=== PATIENT | male | born 1950 | race Caucasian/White ===

== ENCOUNTER → 2017-12-03 08:21 | Outpatient (CLI) | payer MEDICARE, MEDICAID, SELFPAY ==
[2017-12-03 09:21] LABS: Add Manual Diff / Slide Review NO; Basophils Percent Auto 0.9 % (0-2); Eosinophils Percent Auto 1.7 % (2-4); Hematocrit 41.6 % (41-53); Hemoglobin 14.3 g/dL (13.5-17.5); Lymphocytes Percent Auto 15.7 % (25-40); Mean Corpuscular HGB Conc 34.4 % (30-36); Monocytes Percent Auto 7.2 % (3-14); Neutrophils Absolute Auto 6000 /uL (3000-5900); Neutrophils Percent Auto 74.5 % (50-75); Platelet Count 283 X10^3/uL (150-400); Red Blood Cell Count 4.62 X10^6/uL (4.5-5.9); Red Cell Distribution Width 17.5 % (11.6-14.8); White Blood Cell Count 8.1 X10^3/uL (4.5-11.0)
[2017-12-03 09:50] LABS: Alanine Aminotransferase 23 IU/L (21-72); Albumin 4.1 g/dL (3.5-5.0); Albumin Globulin Ratio 1.3 (1.0-2.8); Alkaline Phosphatase 58 U/L (38-126); Aspartate Aminotransferase 14 IU/L (17-59); BUN Creatinine Ratio 24.2 (6-22); Bilirubin Total 0.5 mg/dL (0.2-1.3); Blood Urea Nitrogen 29 mg/dL (9-20); Calcium 9.8 mg/dL (8.4-10.2); Carbon Dioxide 23 mmol/L (22-32); Chloride 104 mmol/L (98-107); Estimated Glomerular Filt Rate > 60.0 mL/min (>60); Globulin 3.2 g/dL (1.7-4.1); Glucose 99 mg/dL (80-110); HEMOLYSIS < 15 (0-50); Magnesium 1.7 mg/dL (1.6-2.3); Potassium 3.9 mmol/L (3.4-5.1); Sodium 143 mmol/L (137-145); Total Protein 7.3 g/dL (6.3-8.2)
[2017-12-03 10:06] LABS: Thyroid Stimulating Hormone 3.37 uIU/mL (0.47-4.68)
== END ==
PROVIDERS: PCP Physician Assistant; Visit Provider Internal Medicine Cardiovascular Disease
DX: I48.91 Unspecified atrial fibrillation (principal); Z79.899 Other long term (current) drug therapy
CPT/HCPCS: 36415; 80053; 83735; 84443; 85025

== ENCOUNTER → 2018-01-01 08:37 | Outpatient (CLI) | payer MEDICARE, MEDICAID, SELFPAY ==
--- NOTE | 2018-01-08 17:06 | PM.PFT.1 ---
Pulmonary Function Test Referral & Results Date Patient Seen: 01/01/18 Requesting provider: Caty Del Rio Results: The spirometry demonstrates an FVC of 3.41 L which is 77% of predicted. The FEV1 was measured at 2.70 L which is 82% of predicted. The FEV1/FVC ratio was 79 which is 107% of predicted. Following the administration of bronchodilator there was no appreciable change. Lung volumes show an SVC of 4.06 L which is 90% of predicted. The diffusing capacity was measured at 35.67 which is 115% of predicted. The maximum voluntary ventilation was slightly reduced. Interpretation: This study demonstrates mild obstructive lung disease without evidence of benefit following bronchodilator administration
== END ==
PROVIDERS: Family Provider Physician Assistant; PCP Physician Assistant; Visit Provider Internal Medicine Cardiovascular Disease
DX: Z79.899 Other long term (current) drug therapy (principal)
CPT/HCPCS: 94010; 94060; 94726; 94729

== ENCOUNTER → 2018-01-04 06:42 | Outpatient (CLI) | payer MEDICARE, MEDICAID, SELFPAY ==
--- NOTE | 2018-01-04 | DI.MRI.S_ITS ---
PROCEDURE: MR LUMBAR SPINE WO CON INDICATIONS: left leg pain. Low back pain. TECHNIQUE: Noncontrast sagittal T1 spin echo and T2 fast echo, sagittal STIR, axial T1 and T2 fast spin echo through the lumbar spine. In cases with scoliosis, additional coronal T2 fast spin echo may be performed. COMPARISON: [facility], MR, L-SPINE WITHOUT CONTRAST, 09/16/2011, 17:18. [facility], MR, L-SPINE WITHOUT CONTRAST, 09/13/2014, 12:56. [facility], [place], BONE SCAN THREE PHASE, 08/15/2015, 10:33. FINDINGS: Image quality: Excellent. Alignment and Curvature: There is normal bony alignment. Bone Marrow: Marrow is of normal overall signal. Again noted is a 1.4 cm oval area of fatty marrow in the left transverse process of S1. No acute vertebral body compression fractures. Spinal Cord: Conus medullaris terminates at the L1-2 level. Visualized cord demonstrates normal signal and size. Paraspinous Soft Tissues: No paravertebral masses. Prominent left peripelvic renal cysts. L1-L2: Disc degeneration with broad-based posterolateral annular bulging, central concavity preserved. Mild right and moderate left foraminal stenosis, unchanged. L2-L3: Disc degeneration with broad-based annular bulge flattening the thecal sac anteriorly, mild central canal stenosis. Mild facet arthropathy. Minimal bilateral foraminal stenosis, unchanged.. L3-L4: Disc degeneration with broad-based annular bulge and bilateral facet arthropathy, creating moderate central canal stenosis, sagittal diameter of the thecal sac measuring 8.6 mm, unchanged. Moderate left and mild right foraminal stenosis, unchanged. L4-L5: Disc degeneration with broad-based annular bulge and bilateral facet arthropathy with ligamentous thickening. This creates a mild central canal stenosis, thecal sac at 9.8 mm, unchanged. Mild bilateral foraminal stenosis, unchanged. L5-S1: Mild disc degeneration. No focal disc protrusion or encroachment on the S1 nerve roots. Broad-based annular bulge causes slight flattening of the thecal sac anteriorly, greater on the right. Bilateral facet arthropathy. The combination again causes severe right foraminal stenosis and moderate left foraminal stenosis, unchanged. IMPRESSION: 1. Lumbar spine again shows multilevel degenerative disc disease and facet arthropathy with central canal stenosis most marked at the L3-4 level, considered moderate in severity at that level. Severe right foraminal stenosis at L5-S1 is again noted. Overall no interval change from last exam which was also stable from the previous 2012 study. 2. Large left peripelvic renal cysts again noted. Dictated by: Per Herrera M.D. on 01/04/2018 at 8:41 Approved by: Per Herrera M.D. on 01/04/2018 at 9:02
--- NOTE | 2018-01-13 10:55 | DI.NM.S_ITS ---
DATE OF SERVICE: PROCEDURE: Pharmacological perfusion study. INDICATIONS: History of congestive heart failure with LV dysfunction and atrial fibrillation, status post cardioversion with LV ejection fraction 30% to 35% in the past. A perfusion scan is being done to rule out a component of ischemic cardiomyopathy as well. RADIOPHARMACEUTICAL: 24.9 mCi of technetium-99m Myoview IV was injected at stress, and 25.7 mCi of technetium-99m Myoview IV was injected at rest. CARDIAC STRESS: The patient underwent IV Lexiscan perfusion study under the supervision of an attending staff using standard IV Lexiscan as per protocol. He remained hemodynamically stable during Lexiscan infusion. Baseline rhythm was sinus. Stress EKG did not reveal any obvious inducible ischemic changes. There were some PACs. RAW DATA: There was increased subdiaphragmatic activity as well as colon shadow near the inferior border of the heart. GATED STUDY: Stress LV ejection fraction 58%. Resting end-diastolic volume 269 mL, suggestive of dilated LV. TID ratio 1.06, which is within normal limits. Lung/heart ratio 0.24, which is within normal limits. I don't see any obvious regional wall motion abnormalities. MYOCARDIAL PERFUSION SCAN: Stress supine, resting supine, and stress prone images were compared to each other. Stress supine and resting supine images revealed large-sized [id number] perfusion defect of entire inferior wall, inferoapex, as well as basal inferolateral wall and inferoseptum which got partially improved during prone images. During prone images, the patient remained to have mild to moderately decreased perfusion of inferior wall and inferoapex. No significant reversible ischemia. CONCLUSION: 1. No obvious reversible ischemia. 2. Stress supine and resting supine images revealed large-sized moderately severe perfusion defect of inferior wall, inferoapex, as well as basal inferolateral and basal inferoseptum which partially improved during prone images. There was increased subdiaphragmatic activity and colon uptake near the inferior border of the heart. There is a possibility of persistent tissue attenuation artifact; however, one cannot rule out the possibility of inferior wall myocardial infarction (WI). I don't see any significant perfusion defect in the LAD or circumflex distribution overall. Calculated stress LV ejection fraction about 58%. The patient is in sinus rhythm. The patient is not in atrial fibrillation. Recently, he had cardioversion. There is a possibility of tachycardia-induced cardiomyopathy, and with sinus rhythm, we are seeing better LV function. Josh Mcguire - CAMRON/xin/clyde doc#: [id number]/job#: [id number] dd: 01/05/2018 15:19:00 dt: 01/05/2018 17:25:00 DICTATING MD/COPIES TO: Caty Del Rio MD COPIES MNE: DAVID
== END ==
PROVIDERS: Family Provider Physician Assistant; PCP Physician Assistant; Visit Provider Orthopaedic Surgery
DX: M51.36 Other intervertebral disc degeneration, lumbar region (principal); I48.1 Persistent atrial fibrillation; I50.22 Chronic systolic (congestive) heart failure; M47.816 Spondylosis without myelopathy or radiculopathy, lumbar region; M48.061 Spinal stenosis, lumbar region without neurogenic claudication; M99.73 Connective tissue and disc stenosis of intervertebral foramina of lumbar region; N28.1 Cyst of kidney, acquired; M79.605 Pain in left leg
CPT/HCPCS: 72148; 78452; 93016; 93017; 93018; A9502; J2785

== ENCOUNTER → 2018-01-13 07:46 | Outpatient (CLI) | payer MEDICARE, MEDICAID, SELFPAY ==
--- NOTE | 2018-01-13 | DI.NM.S_ITS ---
PROCEDURE: [place] BONE 3 PHASE RADIOPHARMACEUTICAL: 19.5 mCi Tc-99m MDP IV. INDICATIONS: PRESENCE OF LEFT ARTIFICIAL KNEE JOINT TECHNIQUE: Multiple bone scintigrams were obtained after intravenous injection of Tc-99m MDP, including flow, blood pool, and delayed images centered to the region of interest. COMPARISON: [facility] [place], [place], XR KNEE ARTHRITIC SERIES BI, 12/29/2017, 14:17. [facility], [place], BONE SCAN THREE PHASE, 08/15/2015, 10:33. FINDINGS: The blood flow and blood pool imaging shows expected photopenic areas over each knee related to the presence of bilateral total knee arthroplasties. No hyperemia is present. The delayed bone scan imaging shows no evidence of arthroplasty loosening or adjacent infection. IMPRESSION: Normal three-phase bone scan imaging showing expected photopenic regions over each knee correlated with the presence of bilateral total knee arthroplasties. No evidence of device loosening or disruption. No adjacent infection would be suspected. Dictated by: Paco Jacobsen M.D. on 01/13/2018 at 12:55 Approved by: Paco Jacobsen M.D. on 01/13/2018 at 13:20
== END ==
PROVIDERS: PCP Physician Assistant; Visit Provider Orthopaedic Surgery
DX: Z09 Encounter for follow-up examination after completed treatment for conditions other than malignant neoplasm (principal); Z96.653 Presence of artificial knee joint, bilateral
CPT/HCPCS: 78315; A9503

== ENCOUNTER 2018-01-24 11:19 | Emergency (ER) | payer MEDICARE, MEDICAID, SELFPAY ==
[2018-01-24 11:40] VITALS: BP 159/86; PULSE 58; RESP 20; TEMP 36.8; O2SAT 97
[2018-01-24 12:00] VITALS: BP 147/67; PULSE 56; RESP 13; O2SAT 97
[2018-01-24 12:10] LABS: Add Manual Diff / Slide Review NO; Basophils Percent Auto 0.5 % (0-2); Eosinophils Percent Auto 1.8 % (2-4); Hematocrit 38.9 % (41-53); Hemoglobin 13.4 g/dL (13.5-17.5); Mean Corpuscular HGB Conc 34.6 % (30-36); Mean Corpuscular Hemoglobin 32.4 PG (26-34); Mean Corpuscular Volume 93.9 fL (80-100); Monocytes Percent Auto 8.2 % (3-14); Neutrophils Absolute Auto 6300 /uL (3000-5900); Neutrophils Percent Auto 80.5 % (50-75); Platelet Count 254 X10^3/uL (150-400); Red Blood Cell Count 4.14 X10^6/uL (4.5-5.9); White Blood Cell Count 7.8 X10^3/uL (4.5-11.0)
[2018-01-24 12:17] LABS: INR 2.6 (0.9-1.3); Prothrombin Time 29.3 SECONDS (10.1-12.7)
[2018-01-24 12:20] LABS: PTT Partial Thromboplastin Tim 36 SECONDS (26.4-36.2)
--- NOTE | 2018-01-24 12:21 | ED.ABDPAIN ---
HPI - Abdominal Pain <MARIZOL Oreilly - Last Filed: 01/24/18 22:22> General Chief Complaint: Abdominal Pain Stated Complaint: abd pain / bloody diarrhea x 2 days Time Seen by Provider: 01/24/18 12:21 Source: patient Mode of arrival: ambulatory Limitations: no limitations History of Present Illness HPI narrative: 67-year-old male with history of having a GI bleed diverticulitis in the past here for complaint of having dark diarrhea since yesterday along with left lower quadrant pain. He states that the pain into the left lower quadrant was worse last night. He denies any nausea or vomiting. No fevers no chills. No urinary symptoms. Last bowel movement was earlier today. He denies any stressors relievers of his discomfort. Patient is currently on Coumadin due to history of AFib. He denies any trauma to the abdomen. He denies any cam blood. No other concerns or complaints MD complaint: abdominal pain Related Data Home Medications Medication Instructions Recorded Confirmed ferrous sulfate [Iron (ferrous 650 mg PO BID #0 12/24/16 01/24/18 sulfate)] cholecalciferol (vitamin D3) 2,000 unit PO QDAY #0 07/20/17 01/24/18 [Vitamin D3] amiodarone 400 mg tablet 200 mg PO DAILY 12/24/17 01/24/18 furosemide 20 mg tablet 20 mg PO .COMPLEX 12/24/17 01/24/18 Previous Rx's Medication Instructions Recorded tamsulosin [Flomax] 0.4 mg PO QDAY #90 cap 02/24/17 omeprazole 20 mg PO BID #180 cap 07/20/17 zolpidem 10 mg PO HSP PRN 30 Days #0 tab 07/24/17 spironolactone 25 mg PO QDAY #90 tab 08/26/17 carvedilol [Coreg] 12.5 mg PO BID #60 tab 09/08/17 diltiazem HCl 360 mg PO QDAY #180 cap 09/08/17 carvedilol 25 mg tablet 25 mg PO BID #60 tab 11/02/17 losartan 25 mg tablet 12.5 mg PO QDAY #15 tab 12/03/17 atorvastatin 20 mg tablet 20 mg PO HS #90 tab 01/11/18 warfarin 5 mg tablet See Label Instructions .ROUTE 01/13/18 .COMPLEX #90 tab Allergies Allergy/AdvReac Type Severity Reaction Status Date / Time ciprofloxacin Allergy Severe BREATHING Verified 01/24/18 10:40 PROBLEMS, CHILLS, SHAKES alendronate sodium AdvReac Severe GI bleed Verified 01/24/18 10:40 [ALENDRONATE SODIUM] morphine AdvReac Mild ABD PAIN Verified 01/24/18 10:40 Review of Systems <MARIZOL Oreilly - Last Filed: 01/24/18 22:22> Constitutional Denies chills, Denies fever(s), Denies lethargy and Denies weakness Eyes Denies change in vision, Denies eye discharge, Denies irritation and Denies loss of vision ENT Ears, Nose, Mouth, and Throat: Denies change in voice, Denies neck pain and Denies sore throat Cardiovascular Denies chest pain, Denies irregular heart rhythm, Denies lightheadedness, Denies palpitations, Denies dyspnea, Denies dyspnea on exertion and Denies orthopnea Respiratory Denies cough, Denies dyspnea, Denies dyspnea on exertion and Denies wheezing Gastrointestinal Gastrointestinal: Reports abdominal pain Comments: Dark diarrhea Genitourinary Denies hematuria, Denies flank pain, Denies urinary incontinence and Denies urinary urgency Musculoskeletal Denies neck pain Integumentary/Breasts Denies pruritus, Denies erythema, Denies rash and Denies wounds Neurologic Denies confusion, Denies loss of vision and Denies weakness Psychiatric Denies anxiety, Denies confusion, Denies depression, Denies homicidal ideation and Denies suicidal ideation Endocrine Denies palpitations Hematologic/Lymphatic Denies easy bruising Allergic/Immunologic Denies wheezing Exam <MARIZOL Oreilly - Last Filed: 01/24/18 22:22> Initial Vital Signs Initial Vital Signs: Vital Signs Temperature 98.2 F 01/24/18 11:40 Pulse Rate 58 L 01/24/18 11:40 Respiratory Rate 20 01/24/18 11:40 Blood Pressure 159/86 H 01/24/18 11:40 Pulse Oximetry 97 01/24/18 11:40 Const General: cooperative and well developed Nutritional Appearance: well nourished Orientation: alert, awake, oriented x3 and not confused HENDC Mouth: oral mucosae normal, oropharynx normal and moist mucous membranes Eyes Conjunctivae: conjunctivae normal Sclera: sclerae normal Pupils: PERRL EOM: EOM intact bilaterally Resp Effort & Inspection: normal respiratory effort, able to speak in complete sentences, no respiratory distress and no use of accessory muscles Auscultation: clear to auscultation bilaterally, no rales, no rhonchi and no wheezes Cardio Rate: regular rate Rhythm: regular rhythm Heart Sounds: no click, no gallops, no murmurs and no rubs Pulses: normal peripheral pulses GI Inspection: non-distended Palpation: soft, no hepatosplenomegaly, No guarding, No pulsatile mass and tender (Tenderness to left lower quadrant) Auscultation: normal bowel sounds Rectal Exam: visual inspection normal, normal sphincter tone, prostate normal, heme positive stool and No tenderness Skin General: no rashes or lesions noted, No jaundice and No petechiae Neuro General: alert, oriented x3, gait normal and no focal motor deficits Speech: speech normal <Marco A Ornelas DO - Last Filed: 01/25/18 07:10> Initial Vital Signs Initial Vital Signs: Vital Signs Temperature 98.2 F 01/24/18 11:40 Pulse Rate 58 L 01/24/18 11:40 Respiratory Rate 20 01/24/18 11:40 Blood Pressure 159/86 H 01/24/18 11:40 Pulse Oximetry 97 01/24/18 11:40 Course <MARIZOL Oreilly - Last Filed: 01/24/18 22:22> Orders Ordered: ED Orders 01/24/18 12:00 Complete Blood Count AUTO DIFF Stat Comprehensive Metabolic Panel Stat Lipase Stat Partial Thromboplastin Time Stat Prothrombin Time INR Stat Type and Screen Stat 01/24/18 12:10 Lactate (Lactic Acid) Stat 01/24/18 12:22 CT abdomen pelvis w con Stat Vital Signs - 8 hr 01/24/18 11:40 01/24/18 12:00 01/24/18 12:34 Temperature 98.2 F Pulse Rate 58 L 56 L 55 L Respiratory Rate 20 13 14 Blood Pressure 159/86 H Blood Pressure [Right Arm] 147/67 H 136/56 H Pulse Oximetry 97 97 96 01/24/18 13:15 Temperature Pulse Rate 59 L Respiratory Rate 21 Blood Pressure Blood Pressure [Right Arm] 137/55 H Pulse Oximetry 95 <DO Susi Fay Last Filed: 01/25/18 07:10> Orders Ordered: ED Orders 01/24/18 12:00 Complete Blood Count AUTO DIFF Stat Comprehensive Metabolic Panel Stat Lipase Stat Partial Thromboplastin Time Stat Prothrombin Time INR Stat Type and Screen Stat 01/24/18 12:10 Lactate (Lactic Acid) Stat 01/24/18 12:22 CT abdomen pelvis w con Stat Vital Signs - 8 hr 01/24/18 11:40 01/24/18 12:00 01/24/18 12:34 Temperature 98.2 F Pulse Rate 58 L 56 L 55 L Respiratory Rate 20 13 14 Blood Pressure 159/86 H Blood Pressure [Right Arm] 147/67 H 136/56 H Pulse Oximetry 97 97 96 01/24/18 13:15 Temperature Pulse Rate 59 L Respiratory Rate 21 Blood Pressure Blood Pressure [Right Arm] 137/55 H Pulse Oximetry 95 MDM - Abdominal Pain <MARIZOL Oreilly - Last Filed: 01/24/18 22:22> Differential Diagnosis Differential diagnosis: Likely gastroenteritis Lab Data Result diagrams: 01/24/18 12:00 01/24/18 12:00 Lab Results 01/24/18 01/24/18 01/24/18 Range/Units 12:00 12:00 12:00 WBC 7.8 (4.5-11.0) X10^3/uL RBC 4.14 L (4.5-5.9) X10^6/uL Hgb 13.4 L (13.5-17.5) g/dL Hct 38.9 L (41-53) % MCV 93.9 (80-100) fL MCH 32.4 (26-34) PG MCHC 34.6 (30-36) % RDW 17.0 H (11.6-14.8) % Plt Count 254 (150-400) X10^3/uL Neut % (Auto) 80.5 H (50-75) % Lymph % (Auto) 9.0 L (25-40) % [place] % (Auto) 8.2 (3-14) % Eos % (Auto) 1.8 L (2-4) % Baso % (Auto) 0.5 (0-2) % Neut # (Auto) 6300 H (0266-7275) /uL PT 29.3 H (10.1-12.7) SECONDS INR 2.6 H (0.9-1.3) APTT 36 (26.4-36.2) SECONDS Sodium 143 (137-145) mmol/L Potassium 3.6 (3.4-5.1) mmol/L Chloride 108 H (98-107) mmol/L Carbon Dioxide 24 (22-32) mmol/L BUN 20 (9-20) mg/dL Creatinine 1.10 (0.66-1.25) mg/dL Estimated GFR > 60.0 (>60) mL/min BUN/Creatinine Ratio 18.2 (6-22) Glucose 104 (80-110) mg/dL Lactate (0.7-2.1) mmol/L Calcium 9.3 (8.4-10.2) mg/dL Total Bilirubin 0.5 (0.2-1.3) mg/dL AST 21 (17-59) IU/L ALT 28 (21-72) IU/L Alkaline Phosphatase 79 (38-126) U/L Total Protein 6.7 (6.3-8.2) g/dL Albumin 3.9 (3.5-5.0) g/dL Globulin 2.8 (1.7-4.1) g/dL Albumin/Globulin Ratio 1.4 (1.0-2.8) Lipase 62 (23-300) U/L Blood Type Antibody Screen 01/24/18 01/24/18 Range/Units 12:00 12:10 WBC (4.5-11.0) X10^3/uL RBC (4.5-5.9) X10^6/uL Hgb (13.5-17.5) g/dL Hct (41-53) % MCV (80-100) fL MCH (26-34) PG MCHC (30-36) % RDW (11.6-14.8) % Plt Count (150-400) X10^3/uL Neut % (Auto) (50-75) % Lymph % (Auto) (25-40) % [place] % (Auto) (3-14) % Eos % (Auto) (2-4) % Baso % (Auto) (0-2) % Neut # (Auto) (5174-1153) /uL PT (10.1-12.7) SECONDS INR (0.9-1.3) APTT (26.4-36.2) SECONDS Sodium (137-145) mmol/L Potassium (3.4-5.1) mmol/L Chloride (98-107) mmol/L Carbon Dioxide (22-32) mmol/L BUN (9-20) mg/dL Creatinine (0.66-1.25) mg/dL Estimated GFR (>60) mL/min BUN/Creatinine Ratio (6-22) Glucose (80-110) mg/dL Lactate 0.7 (0.7-2.1) mmol/L Calcium (8.4-10.2) mg/dL Total Bilirubin (0.2-1.3) mg/dL AST (17-59) IU/L ALT (21-72) IU/L Alkaline Phosphatase (38-126) U/L Total Protein (6.3-8.2) g/dL Albumin (3.5-5.0) g/dL Globulin (1.7-4.1) g/dL Albumin/Globulin Ratio (1.0-2.8) Lipase (23-300) U/L Blood Type A Negative Antibody Screen Negative Imaging Data CT scan - head: Radiologist's impression: PROCEDURE: CT ABDOMEN PELVIS W CON INDICATIONS: Left lower quadrant pain with dark diarrhea TECHNIQUE: After the administration of intravenous contrast, 5 mm thick sections acquired from the diaphragm to the symphysis. 5 mm coronal and sagittal reformats were acquired. For radiation dose reduction, the following was used: automated exposure control, adjustment of mA and/or kV according to patient size. COMPARISON: [facility], [place], ABDOMEN/PELVIS WITH CONTRAST, 01/02/2015, 13:18. [facility], CT, ABDOMEN/PELVIS WITH CONTRAST, 12/30/2009, 19:18. [facility], CT, ABDOMEN/PELVIS WITH CONTRAST, 02/02/2007, 14:56. FINDINGS: Image quality: Visualization of the lower pelvis is limited beam hardening artifact related to left hip prosthesis. ABDOMEN: Lung bases: Lung bases are clear. Nodule in the right lung base is stable compared to prior exams. Trace bilateral pleural effusions. Heart size is normal. Solid organs: Liver is normal in size and enhancement. Gallbladder is within normal limits. Biliary system is non dilated. Pancreas enhances normally. Spleen is normal in size and enhancement. No adrenal nodules. Severe left-sided hydronephrosis to level of the left UPJ with renal cortical thinning involving the upper pole. Peritoneum and bowel: Bowel loops demonstrate normal wall thickness and caliber. No free fluid or air. The appendix is not definitely visualized. Nodes and vessels: No retroperitoneal or mesenteric adenopathy by size criteria. Aorta and inferior vena cava are normal in size. Miscellaneous: No ventral hernias. PELVIS: Genitourinary: Bladder wall thickness is normal. Prostate is enlarged. Miscellaneous: No inguinal adenopathy. Bilateral inguinal hernias. Bones: No suspicious bony lesions. No vertebral body compression fractures. Macro spine. Right hip total arthroplasty noted. IMPRESSION: 1. 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 2. No free fluid or free air. 3. No dilated loops of bowel. 4. Lower pelvis not well-visualized due to artifact related to left hip prosthesis. There may be circumferential wall thickening involving the rectum which could be due to a mild proctitis or neoplastic process. Please correlate with direct physical findings. 5. Trace bilateral pleural effusions. Dictated by: Aye Arita MD, PhD on 01/24/2018 at 12:57 Approved by: Aye Arita MD, PhD on 01/24/2018 at 13:10 MDM Narrative Medical decision making narrative: CBC shows anemia however is consistent with his prior lab values. Otherwise CBC and Chem panel were obtained and were unremarkable. Lipase was negative. INR was 2.5. CT of the abdomen and pelvis was obtained and was negative for any acute findings. On exam guaiac was positive. His vital signs are stable. Recommend that he continues taking omeprazole as prescribed to cover for gastric ulcer. Recommend he follows up with primary care provider in the next couple of days for re-evaluation if continued symptoms discussion for further evaluations such as endoscopy/colonoscopy. For any worsening symptoms return to the emergency room. <Marco A Ornelas, DO - Last Filed: 01/25/18 07:10> Lab Data Lab Results 01/24/18 01/24/18 01/24/18 Range/Units 12:00 12:00 12:00 WBC 7.8 (4.5-11.0) X10^3/uL RBC 4.14 L (4.5-5.9) X10^6/uL Hgb 13.4 L (13.5-17.5) g/dL Hct 38.9 L (41-53) % MCV 93.9 (80-100) fL MCH 32.4 (26-34) PG MCHC 34.6 (30-36) % RDW 17.0 H (11.6-14.8) % Plt Count 254 (150-400) X10^3/uL Neut % (Auto) 80.5 H (50-75) % Lymph % (Auto) 9.0 L (25-40) % [place] % (Auto) 8.2 (3-14) % Eos % (Auto) 1.8 L (2-4) % Baso % (Auto) 0.5 (0-2) % Neut # (Auto) 6300 H (2951-3541) /uL PT 29.3 H (10.1-12.7) SECONDS INR 2.6 H (0.9-1.3) APTT 36 (26.4-36.2) SECONDS Sodium 143 (137-145) mmol/L Potassium 3.6 (3.4-5.1) mmol/L Chloride 108 H (98-107) mmol/L Carbon Dioxide 24 (22-32) mmol/L BUN 20 (9-20) mg/dL Creatinine 1.10 (0.66-1.25) mg/dL Estimated GFR > 60.0 (>60) mL/min BUN/Creatinine Ratio 18.2 (6-22) Glucose 104 (80-110) mg/dL Lactate (0.7-2.1) mmol/L Calcium 9.3 (8.4-10.2) mg/dL Total Bilirubin 0.5 (0.2-1.3) mg/dL AST 21 (17-59) IU/L ALT 28 (21-72) IU/L Alkaline Phosphatase 79 (38-126) U/L Total Protein 6.7 (6.3-8.2) g/dL Albumin 3.9 (3.5-5.0) g/dL Globulin 2.8 (1.7-4.1) g/dL Albumin/Globulin Ratio 1.4 (1.0-2.8) Lipase 62 (23-300) U/L Blood Type Antibody Screen 01/24/18 01/24/18 Range/Units 12:00 12:10 WBC (4.5-11.0) X10^3/uL RBC (4.5-5.9) X10^6/uL Hgb (13.5-17.5) g/dL Hct (41-53) % MCV (80-100) fL MCH (26-34) PG MCHC (30-36) % RDW (11.6-14.8) % Plt Count (150-400) X10^3/uL Neut % (Auto) (50-75) % Lymph % (Auto) (25-40) % [place] % (Auto) (3-14) % Eos % (Auto) (2-4) % Baso % (Auto) (0-2) % Neut # (Auto) (9236-4625) /uL PT (10.1-12.7) SECONDS INR (0.9-1.3) APTT (26.4-36.2) SECONDS Sodium (137-145) mmol/L Potassium (3.4-5.1) mmol/L Chloride (98-107) mmol/L Carbon Dioxide (22-32) mmol/L BUN (9-20) mg/dL Creatinine (0.66-1.25) mg/dL Estimated GFR (>60) mL/min BUN/Creatinine Ratio (6-22) Glucose (80-110) mg/dL Lactate 0.7 (0.7-2.1) mmol/L Calcium (8.4-10.2) mg/dL Total Bilirubin (0.2-1.3) mg/dL AST (17-59) IU/L ALT (21-72) IU/L Alkaline Phosphatase (38-126) U/L Total Protein (6.3-8.2) g/dL Albumin (3.5-5.0) g/dL Globulin (1.7-4.1) g/dL Albumin/Globulin Ratio (1.0-2.8) Lipase (23-300) U/L Blood Type A Negative Antibody Screen Negative Discharge Plan Departure Patient Disposition: Home, Self-Care Clinical Impression: GI bleed Discharge Date/Time: 01/24/18 13:41 Interventions: ED Discharge Assessment Last Done: 01/24/18 13:41 Instructions: Gastrointestinal Bleeding Activity Restrictions/Additional Instructions: Laboratory results today were unremarkable. CT of the abdomen was negative for any acute findings. Testing showed that there was some blood in your stool today. Recommend following up with her primary care provider in the next couple days for re-evaluation and continue symptoms discussion of for further testing such as endoscopy/colonoscopy. Continue to take omeprazole as already prescribed. [id number] Tylenol as needed for any discomfort. No NSAID use. For any worsening symptoms return to the emergency room. Prescriptions: No Action ferrous sulfate [Iron (ferrous sulfate)] 325 MG tablet 650 mg PO BID Qty: 0 RF: 0 tamsulosin [Flomax] 0.4 MG capsule,extended release 24hr 0.4 mg PO QDAY Qty: 90 RF: 3 cholecalciferol (vitamin D3) [Vitamin D3] 2,000 UNIT capsule 2,000 unit PO QDAY Qty: 0 RF: 0 omeprazole 20 MG capsule,delayed release(DR/EC) 20 mg PO BID Qty: 180 RF: 3 zolpidem 5 MG tablet 10 mg PO HSP PRN30 Days Qty: 0 RF: 0 spironolactone 25 MG tablet 25 mg PO QDAY Qty: 90 RF: 1 diltiazem HCl 180 MG capsule,extended release 24hr 360 mg PO QDAY Qty: 180 RF: 3 carvedilol [Coreg] 12.5 MG tablet 12.5 mg PO BID Qty: 60 RF: 1 carvedilol [Coreg] 25 mg tablet 25 mg PO BID Qty: 60 RF: 3 losartan 25 mg tablet 12.5 mg PO QDAY Qty: 15 RF: 3 furosemide 20 mg tablet 20 mg PO .COMPLEX RF: 0 amiodarone 400 mg tablet 200 mg PO DAILY RF: 0 atorvastatin [Lipitor] 20 mg tablet 20 mg PO HS Qty: 90 RF: 3 warfarin [Coumadin] 5 mg tablet See Label Instructions .ROUTE .COMPLEX Qty: 90 RF: 0 Referrals: La Zhou PA-C [Primary Care Provider] - <Marco A Ornelas DO - Last Filed: 01/25/18 07:10> Cosign ED Attending Jose M Attestation: I was available for consultation during this patient's emergency department encounter
[2018-01-24 12:22] LABS: Alanine Aminotransferase 28 IU/L (21-72); Albumin 3.9 g/dL (3.5-5.0); Albumin Globulin Ratio 1.4 (1.0-2.8); Alkaline Phosphatase 79 U/L (38-126); Aspartate Aminotransferase 21 IU/L (17-59); BUN Creatinine Ratio 18.2 (6-22); Bilirubin Total 0.5 mg/dL (0.2-1.3); Blood Urea Nitrogen 20 mg/dL (9-20); Calcium 9.3 mg/dL (8.4-10.2); Carbon Dioxide 24 mmol/L (22-32); Chloride 108 mmol/L (98-107); Estimated Glomerular Filt Rate > 60.0 mL/min (>60); Globulin 2.8 g/dL (1.7-4.1); Glucose 104 mg/dL (80-110); HEMOLYSIS < 15 (0-50); Lipase 62 U/L (23-300); Potassium 3.6 mmol/L (3.4-5.1); Sodium 143 mmol/L (137-145); Total Protein 6.7 g/dL (6.3-8.2)
[2018-01-24 12:27] LABS: Lactate (Lactic Acid) 0.7 mmol/L (0.7-2.1)
[2018-01-24 12:34] VITALS: BP 136/56; PULSE 55; RESP 14; O2SAT 96
[2018-01-24 13:15] VITALS: BP 137/55; PULSE 59; RESP 21; O2SAT 95
== END 2018-01-24 13:41 | disposition home or self-care (01) ==
PROVIDERS: Emergency Medicine; Emergency Provider Nurse Practitioner Family; PCP Physician Assistant
DX: K92.1 Melena (principal)
CPT/HCPCS: 36591; 74177; 80053; 83605; 83690; 85025; 85610; 85730; 86850; 86900; 86901; 99283; 99284; Q9967

== ENCOUNTER → 2018-01-29 09:59 | Outpatient (CLI) | payer MEDICARE, MEDICAID, SELFPAY ==
[2018-01-29 10:56] LABS: Iron 87 ug/dL (49-181)
[2018-01-29 11:24] LABS: Vitamin D 25 Hydroxy (D3) 25.4 ng/mL (30.0-100.0)
[2018-01-29 11:26] LABS: Ferritin 30.9 ng/mL (17.9-464)
== END ==
PROVIDERS: PCP Physician Assistant; Visit Provider Physician Assistant
DX: D50.9 Iron deficiency anemia, unspecified (principal); M85.80 Other specified disorders of bone density and structure, unspecified site; E56.9 Vitamin deficiency, unspecified
CPT/HCPCS: 36415; 82306; 82728; 83540

== ENCOUNTER → 2018-02-01 17:03 | Outpatient (CLI) | payer MEDICARE, MEDICAID, SELFPAY ==
[2018-02-01 17:54] LABS: Add Manual Diff / Slide Review NO; Basophils Percent Auto 1.1 % (0-2); Eosinophils Percent Auto 3.2 % (2-4); Hematocrit 38.3 % (41-53); Hemoglobin 13.4 g/dL (13.5-17.5); Lymphocytes Percent Auto 15.9 % (25-40); Mean Corpuscular HGB Conc 34.9 % (30-36); Mean Corpuscular Hemoglobin 32.9 PG (26-34); Mean Corpuscular Volume 94.4 fL (80-100); Monocytes Percent Auto 10.6 % (3-14); Neutrophils Absolute Auto 4600 /uL (3000-5900); Neutrophils Percent Auto 69.2 % (50-75); Platelet Count 223 X10^3/uL (150-400); Red Blood Cell Count 4.06 X10^6/uL (4.5-5.9); Red Cell Distribution Width 16.3 % (11.6-14.8); White Blood Cell Count 6.7 X10^3/uL (4.5-11.0)
== END ==
PROVIDERS: PCP Physician Assistant; Visit Provider Physician Assistant
DX: D62 Acute posthemorrhagic anemia (principal); K92.2 Gastrointestinal hemorrhage, unspecified
CPT/HCPCS: 36415; 85025

== ENCOUNTER → 2018-02-15 10:58 | Outpatient (CLI) | payer MEDICARE, MEDICAID, SELFPAY ==
[2018-02-15 11:18] LABS: Add Manual Diff / Slide Review NO; Basophils Percent Auto 0.7 % (0-2); Eosinophils Percent Auto 1.7 % (2-4); Hematocrit 36.3 % (41-53); Hemoglobin 12.7 g/dL (13.5-17.5); Mean Corpuscular Hemoglobin 33.6 PG (26-34); Mean Corpuscular Volume 95.8 fL (80-100); Monocytes Percent Auto 7.1 % (3-14); Neutrophils Absolute Auto 7500 /uL (3000-5900); Neutrophils Percent Auto 80.5 % (50-75); Platelet Count 220 X10^3/uL (150-400); Red Blood Cell Count 3.79 X10^6/uL (4.5-5.9); Red Cell Distribution Width 16.2 % (11.6-14.8); White Blood Cell Count 9.3 X10^3/uL (4.5-11.0)
[2018-02-15 11:29] LABS: INR 2.8 (0.9-1.3); Prothrombin Time 31.2 SECONDS (10.1-12.7)
== END ==
PROVIDERS: PCP Physician Assistant; Visit Provider Physician Assistant
DX: K92.2 Gastrointestinal hemorrhage, unspecified (principal); I48.91 Unspecified atrial fibrillation
CPT/HCPCS: 85025; 85610

== ENCOUNTER 2018-02-15 11:31 | Emergency (ER) | payer MEDICARE, MEDICAID, SELFPAY ==
[2018-02-15 11:27] VITALS: BP 193/60; PULSE 58; RESP 18; TEMP 36.7; O2SAT 98; BMI 30.5
--- NOTE | 2018-02-15 12:46 | DI.RAD.S_ITS ---
PROCEDURE: XR CHEST 1V INDICATIONS: epigastric pain TECHNIQUE: One view of the chest was acquired. COMPARISON: [facility], CHEST 1 VIEW, 07/20/2017, 15:43. [facility], CHEST 1 VIEW, 06/28/2009, 14:27. [facility], CHEST 2 VIEW, 06/27/2009, 14:04. [facility], CHEST 1 VIEW, 08/10/2017, 12:01. FINDINGS: Surgical changes and devices: None. Lungs and pleura: No pleural effusions or pneumothorax. Lungs are clear. Mediastinum: Mediastinal contours appear normal. Heart size is normal. Bones and chest wall: No suspicious bony lesions. Overlying soft tissues appear unremarkable. IMPRESSION: No acute cardiopulmonary disease process. Dictated by: Aey Arita MD, PhD on 02/15/2018 at 13:11 Approved by: Aye Arita MD, PhD on 02/15/2018 at 13:11
[2018-02-15 13:03] LABS: INR 2.7 (0.9-1.3); Prothrombin Time 30.2 SECONDS (10.1-12.7)
[2018-02-15 13:05] LABS: Add Manual Diff / Slide Review NO; Basophils Percent Auto 0.8 % (0-2); Eosinophils Percent Auto 1.3 % (2-4); Hematocrit 35.6 % (41-53); Hemoglobin 12.2 g/dL (13.5-17.5); Lymphocytes Percent Auto 11.7 % (25-40); Mean Corpuscular HGB Conc 34.3 % (30-36); Mean Corpuscular Hemoglobin 32.9 PG (26-34); Monocytes Percent Auto 7.7 % (3-14); Neutrophils Absolute Auto 6700 /uL (3000-5900); Neutrophils Percent Auto 78.5 % (50-75); Platelet Count 216 X10^3/uL (150-400); Red Blood Cell Count 3.71 X10^6/uL (4.5-5.9); Red Cell Distribution Width 16.4 % (11.6-14.8); White Blood Cell Count 8.5 X10^3/uL (4.5-11.0)
[2018-02-15 13:06] LABS: PTT Partial Thromboplastin Tim 40 SECONDS (26.4-36.2)
[2018-02-15 13:09] VITALS: BP 173/55; PULSE 53; RESP 17; O2SAT 95
[2018-02-15 13:11] LABS: Alanine Aminotransferase 23 IU/L (21-72); Albumin 3.6 g/dL (3.5-5.0); Albumin Globulin Ratio 1.2 (1.0-2.8); Alkaline Phosphatase 56 U/L (38-126); Aspartate Aminotransferase 24 IU/L (17-59); BUN Creatinine Ratio 22.2 (6-22); Bilirubin Total 0.7 mg/dL (0.2-1.3); Blood Urea Nitrogen 20 mg/dL (9-20); Calcium 9.1 mg/dL (8.4-10.2); Carbon Dioxide 28 mmol/L (22-32); Chloride 107 mmol/L (98-107); Estimated Glomerular Filt Rate > 60.0 mL/min (>60); Globulin 2.9 g/dL (1.7-4.1); Glucose 90 mg/dL (80-110); HEMOLYSIS 18 (0-50); Potassium 3.6 mmol/L (3.4-5.1); Sodium 142 mmol/L (137-145); Total Protein 6.5 g/dL (6.3-8.2)
[2018-02-15 13:23] LABS: Troponin I < 0.012 ng/mL (0.01-0.034)
[2018-02-15 13:30] VITALS: BP 178/66; PULSE 56; RESP 12; O2SAT 96
--- NOTE | 2018-02-15 13:40 | ED_ITS ---
HPI - GI Bleed General Chief complaint: GI Bleed Stated complaint: Possible GI Bleed Time Seen by Provider: 02/15/18 11:56 History of Present Illness HPI Narrative: HPI 67-year-old male with history of a peptic ulcer prior GI bleeds presents for evaluation 2.5 days after having a day of perfused dark tarry loose stools, the subsequent day had minor loose dark stools, and the patient presented today as the rate of stooling has slowed and he felt comfortable leaving the house for further care and evaluation. Patient reports taking warfarin, for atrial fibrillation, denies a history of liver disease, hepatitis, or alcohol abuse. Notes a prior upper and lower GI endoscopy those notable for peptic ulcer, this was approximately 2 years ago. M/S/F/SocHx notable for: please see HPI; remainder reviewed with patient and in chart. ROS: Negative constitutional, eye, cardiovascular, pulmonary, GI, , MSK, skin , neurologic, psychiatric, endocrine unless noted in the HPI. Exam Gen: Pleasant, non-toxic appearing, resting comfortably. HEENT: NC, AT, PEERL, EOMI. Resp: Clear to auscultation bilaterally, normal work of breathing, no accessory muscle usage. Card: Regular rate and rhythm with no murmurs, rubs, or gallops, extremities warm and well perfused. GI: Non-tender to palpation throughout all quadrants, no focal tenderness at McBurney's point, negative Mccoy's sign, non-distended, no rebound or guarding. : no suprapubic tenderness to palpation. MSK: No visible deformities, strength and tone without visually appreciable deficit. Skin: Normal color with no visible lesions. Neuro: AO x 3, no facial asymmetry, vision and hearing WNL. Psych: Mood and affect appropriate. Labs / Imaging: WBC 8.5, Hb 12.2, PLT 216, PT/INR 2.7 Na 142, K 3.6, BUN 20, Cr 0.9 (BUN to creatinine ratio 22.2), AST 23, ALT 56, PTT 40, troponin <0.012 CXR: no acute cardiopulmonary disease process. EKG: SR 59 bpm, no ST segment elevations or depressions, no LBBB. MDM Previous chart, nursing note, labs, imaging, and vitals reviewed. A: 67-year-old male with a history of paroxysmal A. fib on warfarin and prior upper GI bleed apparently secondary to a peptic ulcer presents for evaluation of resolved dark tarry stools of 1-1.5 days duration. DDx: angiodysplasia, diverticulosis / diverticulitis, colitis (ischemic, radiation), colonic carcinoma or polyp, anal fissure, hemorrhoids, inflammatory bowel disease, ischemic colitis, fistula, Meckel?s diverticulum, colonic ulcer, small bowel disease (tumor, diverticula, intussusception), hemobilia, upper GI bleed, hypovolemia, anemia, coagulopathy. Evaluation: patient with a stable hemoglobin, therapeutic PT/INR, and history consistent with upper GI bleed, given the absence of identifiable liver disease strongly doubt variceal bleeding. Patient remains appropriate for outpatient upper GI endoscopy. Patient recommended to initiate ranitidine in addition to his omeprazole and to see his primary care provider within 48 hours to schedule an upper GI endoscopy. Also considered on the differential was enterohemorrhagic , enterotoxigenic E. coli as well as other hemorrhagic diarrheal illnesses, however given the patient's overall well appearance, resolution symptoms, dark tarry stools, and absence of leukocytosis, these are felt to be effectively excluded. Return to care precautions provided. Patient was notified of their elevated blood pressure and recommended to follow up with their primary care physician. As the patient is without evidence of acute end organ dysfunction no further emergent evaluation is indicated as per the 2013 [facility] clinical policy. Impression: suspected upper GI bleed (please reference below for remainder of encounter information) Related Data Home Medications Medication Instructions Recorded Confirmed ferrous sulfate [Iron (ferrous 650 mg PO BID #0 12/24/16 02/15/18 sulfate)] cholecalciferol (vitamin D3) 2,000 unit PO QDAY #0 07/20/17 02/15/18 [Vitamin D3] amiodarone 400 mg tablet 200 mg PO DAILY 12/24/17 02/15/18 furosemide 20 mg tablet 20 mg PO .COMPLEX 12/24/17 02/15/18 diltiazem HCl [Cartia XT] 1 cap PO BID 02/15/18 02/15/18 Previous Rx's Medication Instructions Recorded tamsulosin [Flomax] 0.4 mg PO QDAY #90 cap 02/24/17 omeprazole 20 mg PO BID #180 cap 07/20/17 zolpidem 10 mg PO HSP PRN 30 Days #0 tab 07/24/17 spironolactone 25 mg PO QDAY #90 tab 08/26/17 carvedilol 25 mg tablet 25 mg PO BID #60 tab 11/02/17 atorvastatin 20 mg tablet 20 mg PO HS #90 tab 01/11/18 warfarin 5 mg tablet See Label Instructions .ROUTE 01/13/18 .COMPLEX #90 tab losartan 25 mg tablet 12.5 mg PO QDAY #45 tab 02/01/18 Allergies Allergy/AdvReac Type Severity Reaction Status Date / Time ciprofloxacin Allergy Severe BREATHING Verified 02/15/18 10:40 PROBLEMS, CHILLS, SHAKES alendronate sodium AdvReac Severe GI bleed Verified 02/15/18 10:40 [ALENDRONATE SODIUM] morphine AdvReac Mild ABD PAIN Verified 02/15/18 10:40 PFS Medical History Anemia (Chronic Unknown) Atrial fibrillation (Chronic 06/2017) CHF (congestive heart failure) (Chronic ~06/2017) Cardiomyopathy (Chronic 06/2017) Hyperlipemia (Chronic Unknown) Hypertension (Chronic Unknown) Neurogenic bladder (Chronic Unknown) Neuropathy (Chronic Unknown) Osteoarthritis (Chronic Unknown) Osteopenia (Chronic 03/2016) Duodenal ulcer (Resolved Unknown) Encephalopathy (Resolved Unknown) Gastric ulcer (Resolved Unknown) Gastritis (Resolved Unknown) Peptic ulcer (Resolved Unknown) Surgical History History of bilateral knee replacement (Resolved Unknown) History of left hip replacement (Resolved Unknown) Hx of shoulder surgery (Resolved Unknown) Social History Smoking Status: Never smoker second hand exposure: No alcohol intake: never substance use type: does not use Exam Initial Vital Signs Initial Vital Signs: Vital Signs Temperature 98.0 F 02/15/18 11:27 Pulse Rate 58 L 02/15/18 11:27 Respiratory Rate 18 02/15/18 11:27 Blood Pressure 193/60 H 02/15/18 11:27 Pulse Oximetry 98 02/15/18 11:27 Course Orders Ordered: ED Orders 02/15/18 12:03 Complete Blood Count AUTO DIFF Stat Comprehensive Metabolic Panel Stat Partial Thromboplastin Time Stat Prothrombin Time INR Stat Troponin I Stat Type and Screen Stat 02/15/18 12:46 XR chest 1V Stat Vital Signs - 8 hr 02/15/18 11:27 02/15/18 13:09 Temperature 98.0 F Pulse Rate 58 L 53 L Respiratory Rate 18 17 Blood Pressure 193/60 H Blood Pressure [Left Arm] 173/55 H Pulse Oximetry 98 95 MDM - GI Bleed Lab Data Result diagrams: 02/15/18 12:03 02/15/18 12:03 Lab Results 02/15/18 02/15/18 02/15/18 Range/Units 12:03 12:03 12:03 WBC 8.5 (4.5-11.0) X10^3/uL RBC 3.71 L (4.5-5.9) X10^6/uL Hgb 12.2 L (13.5-17.5) g/dL Hct 35.6 L (41-53) % MCV 96.0 (80-100) fL MCH 32.9 (26-34) PG MCHC 34.3 (30-36) % RDW 16.4 H (11.6-14.8) % Plt Count 216 (150-400) X10^3/uL Neut % (Auto) 78.5 H (50-75) % Lymph % (Auto) 11.7 L (25-40) % Dolores % (Auto) 7.7 (3-14) % Eos % (Auto) 1.3 L (2-4) % Baso % (Auto) 0.8 (0-2) % Neut # (Auto) 6700 H (6742-5039) /uL PT 30.2 H (10.1-12.7) SECONDS INR 2.7 H (0.9-1.3) APTT 40 H D (26.4-36.2) SECONDS Sodium 142 (137-145) mmol/L Potassium 3.6 (3.4-5.1) mmol/L Chloride 107 (98-107) mmol/L Carbon Dioxide 28 (22-32) mmol/L BUN 20 (9-20) mg/dL Creatinine 0.90 (0.66-1.25) mg/dL Estimated GFR > 60.0 (>60) mL/min BUN/Creatinine Ratio 22.2 H (6-22) Glucose 90 (80-110) mg/dL Calcium 9.1 (8.4-10.2) mg/dL Total Bilirubin 0.7 (0.2-1.3) mg/dL AST 24 (17-59) IU/L ALT 23 (21-72) IU/L Alkaline Phosphatase 56 (38-126) U/L Troponin I < 0.012 (0.01-0.034) ng/mL Total Protein 6.5 (6.3-8.2) g/dL Albumin 3.6 (3.5-5.0) g/dL Globulin 2.9 (1.7-4.1) g/dL Albumin/Globulin Ratio 1.2 (1.0-2.8) Discharge Plan Departure Prescriptions: No Action ferrous sulfate [Iron (ferrous sulfate)] 325 MG tablet 650 mg PO BID Qty: 0 RF: 0 tamsulosin [Flomax] 0.4 MG capsule,extended release 24hr 0.4 mg PO QDAY Qty: 90 RF: 3 cholecalciferol (vitamin D3) [Vitamin D3] 2,000 UNIT capsule 2,000 unit PO QDAY Qty: 0 RF: 0 omeprazole 20 MG capsule,delayed release(DR/EC) 20 mg PO BID Qty: 180 RF: 3 zolpidem 5 MG tablet 10 mg PO HSP PRN30 Days Qty: 0 RF: 0 spironolactone 25 MG tablet 25 mg PO QDAY Qty: 90 RF: 1 carvedilol [Coreg] 25 mg tablet 25 mg PO BID Qty: 60 RF: 3 furosemide 20 mg tablet 20 mg PO .COMPLEX RF: 0 amiodarone 400 mg tablet 200 mg PO DAILY RF: 0 atorvastatin [Lipitor] 20 mg tablet 20 mg PO HS Qty: 90 RF: 3 warfarin [Coumadin] 5 mg tablet See Label Instructions .ROUTE .COMPLEX Qty: 90 RF: 0 losartan 25 mg tablet 12.5 mg PO QDAY Qty: 45 RF: 0 diltiazem HCl [Cartia XT] 180 mg capsule,extended release 24hr 1 cap PO BID RF: 0
== END 2018-02-15 14:02 | disposition home or self-care (01) ==
PROVIDERS: Emergency Provider Emergency Medicine; PCP Physician Assistant
DX: K92.1 Melena (principal); Z79.899 Other long term (current) drug therapy
CPT/HCPCS: 36591; 71045; 80053; 84484; 85025; 85610; 85730; 86850; 86900; 86901; 93005; 93010; 99282; 99285

== ENCOUNTER 2018-02-27 09:54 | Emergency (ER) | payer MEDICARE, MEDICAID, SELFPAY ==
[2018-02-27 09:57] VITALS: BP 187/71; PULSE 70; RESP 14; TEMP 36.3; O2SAT 98; BMI 30.4
[2018-02-27 10:40] VITALS: BP 178/53; PULSE 53; RESP 12; O2SAT 96
--- NOTE | 2018-02-27 11:05 | ED_ITS ---
HPI - GI Bleed General Chief complaint: GI Bleed Stated complaint: BLACK STOOL Time Seen by Provider: 02/27/18 10:26 Source: patient Mode of arrival: ambulatory Limitations: no limitations History of Present Illness HPI Narrative: Patient is a 67-year-old male who presents with black stool. He is actually scheduled her for an EGD and colonoscopy in 3 days. He is on Coumadin for atrial fibrillation he has had black stools in the past and GI bleeding. He said he has had a couple episodes this week however last night he had severe left lower quadrant pain and then a large episode of what he said was clots. He denies dizziness lightheadedness shortness of breath heart palpitations or syncope. He states that he is also taking iron pills. MD complaint: other (Black) Related Data Home Medications Medication Instructions Recorded Confirmed ferrous sulfate [Iron (ferrous 650 mg PO BID #0 12/24/16 02/27/18 sulfate)] cholecalciferol (vitamin D3) 2,000 unit PO QDAY #0 07/20/17 02/27/18 [Vitamin D3] amiodarone 400 mg tablet 200 mg PO DAILY 12/24/17 02/27/18 carvedilol 12.5 mg PO BID 02/15/18 02/27/18 Previous Rx's Medication Instructions Recorded tamsulosin [Flomax] 0.4 mg PO QDAY #90 cap 02/24/17 omeprazole 20 mg PO BID #180 cap 07/20/17 zolpidem 10 mg PO HSP PRN 30 Days #0 tab 07/24/17 spironolactone 25 mg PO QDAY #90 tab 08/26/17 carvedilol 25 mg tablet 25 mg PO BID #60 tab 11/02/17 atorvastatin 20 mg tablet 20 mg PO HS #90 tab 01/11/18 warfarin 5 mg tablet See Label Instructions .ROUTE 01/13/18 .COMPLEX #90 tab losartan 25 mg tablet 12.5 mg PO QDAY #45 tab 02/01/18 ranitidine HCl 150 mg PO BID 15 Days #30 tab 02/15/18 furosemide 20 mg tablet 20 mg PO .COMPLEX #45 tab 02/22/18 Allergies Allergy/AdvReac Type Severity Reaction Status Date / Time ciprofloxacin Allergy Severe BREATHING Verified 02/27/18 10:00 PROBLEMS, CHILLS, SHAKES alendronate sodium AdvReac Severe GI bleed Verified 02/27/18 10:00 [ALENDRONATE SODIUM] morphine AdvReac Mild ABD PAIN Verified 02/27/18 10:00 Review of Systems Review of Systems All systems reviewed & are unremarkable except as noted in HPI and below Constitutional Denies chills, Denies fever(s), Denies lethargy and Denies weakness Eyes Denies change in vision, Denies eye discharge, Denies irritation and Denies loss of vision ENT Ears, Nose, Mouth, and Throat: Denies change in voice, Denies neck pain and Denies sore throat Cardiovascular Denies chest pain, Denies irregular heart rhythm, Denies lightheadedness, Denies palpitations, Denies dyspnea, Denies dyspnea on exertion and Denies orthopnea Respiratory Denies cough, Denies dyspnea, Denies dyspnea on exertion and Denies wheezing Gastrointestinal Gastrointestinal: Reports as per HPI, Reports abdominal pain, Reports melena, Reports change in bowel habits, Denies diarrhea, Denies nausea and Denies vomiting Musculoskeletal Denies neck pain Integumentary/Breasts Denies pruritus, Denies erythema, Denies rash and Denies wounds Neurologic Denies loss of vision and Denies weakness Endocrine Denies palpitations Allergic/Immunologic Denies wheezing [facility] Medical History Anemia (Chronic Unknown) Atrial fibrillation (Chronic 06/2017) CHF (congestive heart failure) (Chronic ~06/2017) Cardiomyopathy (Chronic 06/2017) Hyperlipemia (Chronic Unknown) Hypertension (Chronic Unknown) Neurogenic bladder (Chronic Unknown) Neuropathy (Chronic Unknown) Osteoarthritis (Chronic Unknown) Osteopenia (Chronic 03/2016) Duodenal ulcer (Resolved Unknown) Encephalopathy (Resolved Unknown) Gastric ulcer (Resolved Unknown) Gastritis (Resolved Unknown) Peptic ulcer (Resolved Unknown) Surgical History History of bilateral knee replacement (Resolved Unknown) History of left hip replacement (Resolved Unknown) Hx of shoulder surgery (Resolved Unknown) Social History Smoking Status: Never smoker second hand exposure: No alcohol intake: never substance use type: does not use Exam Initial Vital Signs Initial Vital Signs: Vital Signs Temperature 97.3 F L 02/27/18 09:57 Pulse Rate 70 02/27/18 09:57 Respiratory Rate 14 02/27/18 09:57 Blood Pressure 187/71 H 02/27/18 09:57 Pulse Oximetry 98 02/27/18 09:57 GENERAL: Alert well-appearing elderly male no acute distress and in no acute distress. HEENT: Head atraumatic,EOMI, pupils reactive, face symmetric, neck is supple no JVD CARDIOVASCULAR: Regular rate and rhythm without murmurs, rubs or gallops. RESPIRATORY: Breath sounds equal bilaterally, no wheezes rales or rhonchi. ABDOMEN: Soft, nontender. Normoactive bowel sounds all 4 quadrants. No guarding or rebound. RECTAL: Extremely black stool Hemoccult negative EXTREMITIES: Normal range of motion, no clubbing or edema. Neurovascularly intact NEUROLOGICAL: Alert and oriented x4.Normal gait and speech. Cranial nerves II through XII grossly intact. SKIN: Warm, dry, no laceration, no petechiae, no rashes or lesions. Course Orders Ordered: ED Orders 02/27/18 10:26 EKG-12 Lead Stat 02/27/18 11:20 Complete Blood Count AUTO DIFF Stat Comprehensive Metabolic Panel Stat Lipase Stat Partial Thromboplastin Time Stat Prothrombin Time INR Stat Discontinued Medications Pantoprazole Sodium (Protonix) 40 mg IV NOW ONE Stop: 02/27/18 11:54 Last Admin: 02/27/18 12:00 Dose: 40 mg Vital Signs - 8 hr 02/27/18 11:17 02/27/18 13:31 Pulse Rate 60 63 Respiratory Rate 17 12 Blood Pressure [Right Arm] 170/53 H 176/75 H Pulse Oximetry 99 94 MDM - GI Bleed Lab Data Result diagrams: 02/27/18 11:20 02/27/18 11:20 Lab Results 02/27/18 02/27/18 02/27/18 Range/Units 11:20 11:20 11:20 WBC 8.6 (4.5-11.0) X10^3/uL RBC 3.95 L (4.5-5.9) X10^6/uL Hgb 13.0 L (13.5-17.5) g/dL Hct 37.9 L (41-53) % MCV 96.1 (80-100) fL MCH 32.9 (26-34) PG MCHC 34.2 (30-36) % RDW 15.6 H (11.6-14.8) % Plt Count 223 (150-400) X10^3/uL Neut % (Auto) 79.0 H (50-75) % Lymph % (Auto) 10.5 L (25-40) % [place] % (Auto) 7.9 (3-14) % Eos % (Auto) 1.7 L (2-4) % Baso % (Auto) 0.9 (0-2) % Neut # (Auto) 6800 H (8836-1202) /uL PT 23.4 H (10.1-12.7) SECONDS INR 2.1 H (0.9-1.3) APTT 35 D (26.4-36.2) SECONDS Sodium 143 (137-145) mmol/L Potassium 3.8 (3.4-5.1) mmol/L Chloride 105 (98-107) mmol/L Carbon Dioxide 31 (22-32) mmol/L BUN 18 (9-20) mg/dL Creatinine 1.00 (0.66-1.25) mg/dL Estimated GFR > 60.0 (>60) mL/min BUN/Creatinine Ratio 18.0 (6-22) Glucose 90 (80-110) mg/dL Calcium 9.6 (8.4-10.2) mg/dL Total Bilirubin 1.0 (0.2-1.3) mg/dL AST 15 L (17-59) IU/L ALT 25 (21-72) IU/L Alkaline Phosphatase 49 (38-126) U/L Total Protein 6.5 (6.3-8.2) g/dL Albumin 3.7 (3.5-5.0) g/dL Globulin 2.8 (1.7-4.1) g/dL Albumin/Globulin Ratio 1.3 (1.0-2.8) Lipase 36 (23-300) U/L Point of Care Testing Stool Occult Blood Negative MDM Narrative Medical decision making narrative: Patient is hemodynamically stable. He is guaiac-negative stool is black and constipated likely from the iron. He is already scheduled for EGD and colonoscopy next week. Discharge Plan Departure Patient Disposition: Home Clinical Impression: GI bleed Discharge Date/Time: 02/27/18 13:34 Interventions: ED Discharge Assessment Last Done: 02/27/18 13:33 Instructions: Upper GI Endoscopy Activity Restrictions/Additional Instructions: *You have been diagnosed with GI bleeding stable all *What to do: At this time blood work is improved from last week. Black stool is likely from the iron tablets. Iron can also cause constipation and abdominal discomfort. *Continue to take medications as directed *Follow up with your primary care provider in 2-3 days follow up with Dr. Kendrick as scheduled on Thursday *Return to ER if you should have increasing abdominal pain, vomiting, bright red blood or any new, worsening or concerning symptoms Prescriptions: No Action ferrous sulfate [Iron (ferrous sulfate)] 325 MG tablet 650 mg PO BID Qty: 0 RF: 0 tamsulosin [Flomax] 0.4 MG capsule,extended release 24hr 0.4 mg PO QDAY Qty: 90 RF: 3 cholecalciferol (vitamin D3) [Vitamin D3] 2,000 UNIT capsule 2,000 unit PO QDAY Qty: 0 RF: 0 omeprazole 20 MG capsule,delayed release(DR/EC) 20 mg PO BID Qty: 180 RF: 3 zolpidem 5 MG tablet 10 mg PO HSP PRN30 Days Qty: 0 RF: 0 spironolactone 25 MG tablet 25 mg PO QDAY Qty: 90 RF: 1 carvedilol [Coreg] 25 mg tablet 25 mg PO BID Qty: 60 RF: 3 amiodarone 400 mg tablet 200 mg PO DAILY RF: 0 atorvastatin [Lipitor] 20 mg tablet 20 mg PO HS Qty: 90 RF: 3 warfarin [Coumadin] 5 mg tablet See Label Instructions .ROUTE .COMPLEX Qty: 90 RF: 0 losartan 25 mg tablet 12.5 mg PO QDAY Qty: 45 RF: 0 furosemide 20 mg tablet 20 mg PO .COMPLEX Qty: 45 RF: 3 ranitidine HCl 150 mg tablet 150 mg PO BID 15 Days Qty: 30 RF: 0 carvedilol 12.5 mg tablet 12.5 mg PO BID RF: 0 Referrals: La Zhou PA-C [Primary Care Provider] - Sameer Kendrick MD [Physician] -
[2018-02-27 11:17] VITALS: BP 170/53; PULSE 60; RESP 17; O2SAT 99
[2018-02-27 11:29] LABS: Add Manual Diff / Slide Review NO; Basophils Percent Auto 0.9 % (0-2); Eosinophils Percent Auto 1.7 % (2-4); Hematocrit 37.9 % (41-53); Lymphocytes Percent Auto 10.5 % (25-40); Mean Corpuscular HGB Conc 34.2 % (30-36); Mean Corpuscular Hemoglobin 32.9 PG (26-34); Mean Corpuscular Volume 96.1 fL (80-100); Monocytes Percent Auto 7.9 % (3-14); Neutrophils Absolute Auto 6800 /uL (3000-5900); Platelet Count 223 X10^3/uL (150-400); Red Blood Cell Count 3.95 X10^6/uL (4.5-5.9); Red Cell Distribution Width 15.6 % (11.6-14.8); White Blood Cell Count 8.6 X10^3/uL (4.5-11.0)
[2018-02-27 11:35] LABS: INR 2.1 (0.9-1.3); Prothrombin Time 23.4 SECONDS (10.1-12.7)
[2018-02-27 11:38] LABS: PTT Partial Thromboplastin Tim 35 SECONDS (26.4-36.2)
[2018-02-27 11:47] LABS: Alanine Aminotransferase 25 IU/L (21-72); Albumin 3.7 g/dL (3.5-5.0); Albumin Globulin Ratio 1.3 (1.0-2.8); Alkaline Phosphatase 49 U/L (38-126); Aspartate Aminotransferase 15 IU/L (17-59); Blood Urea Nitrogen 18 mg/dL (9-20); Calcium 9.6 mg/dL (8.4-10.2); Carbon Dioxide 31 mmol/L (22-32); Chloride 105 mmol/L (98-107); Estimated Glomerular Filt Rate > 60.0 mL/min (>60); Globulin 2.8 g/dL (1.7-4.1); Glucose 90 mg/dL (80-110); HEMOLYSIS < 15 (0-50); Lipase 36 U/L (23-300); Potassium 3.8 mmol/L (3.4-5.1); Sodium 143 mmol/L (137-145); Total Protein 6.5 g/dL (6.3-8.2)
[2018-02-27] MEDS: PANTOPRAZOLE 40 MG VIAL IV (12:00)
[2018-02-27 13:31] VITALS: BP 176/75; PULSE 63; RESP 12; O2SAT 94
== END 2018-02-27 13:34 | disposition home or self-care (01) ==
PROVIDERS: Emergency Provider Emergency Medicine; PCP Physician Assistant
DX: K92.2 Gastrointestinal hemorrhage, unspecified (principal); Z79.01 Long term (current) use of anticoagulants; Z86.79 Personal history of other diseases of the circulatory system
CPT/HCPCS: 36591; 80053; 82272; 83690; 85025; 85610; 85730; 93005; 93010; 96374; 99283; 99284; C9113

== ENCOUNTER 2018-03-03 10:58 | Day surgery (SDC) | payer MEDICARE, MEDICAID, SELFPAY ==
--- NOTE | 2018-03-03 | PATH_ITS ---
[facility] Accession Number: [id number] . 01 Material submitted: . PART A: DUODENUM BIOPSIES PART B: ANTRUM BIOPSIES PART C: GE JUNCTION BIOPSIES . 02 Diagnosis: A. Duodenum Biopsies: Duodenal mucosa with no diagnostic abnormality. Negative for active inflammation, granulomas, dysplasia, and malignancy. . B. Antrum, Biopsies: Portions of antral mucosa with mild chronic gastritis. Negative for H. pylori organisms by H/E stain and immunohistochemistry studies. Negative for intestinal metaplasia. Negative for dysplasia and malignancy. . C. GE Junction Biopsies: Portions of inflamed columnar mucosa. Negative for intestinal metaplasia. Negative for dysplasia and malignancy. No well-preserved squamous mucosa identified for evaluation. . . . . . . . . . . . . . . . . . . . . . . . . . . . . . . . . . . . . . . . [facility]/03/05/2018 . 02 Electronically signed: . Alicia Brown MD, Pathologist NPI- [id number] . 01 Gross description: . Received three formalin-filled containers, each labeled with the patient's name: . A. In a container labeled duodenum, the specimen consists of a 0.2 cm portion of tissue, entirely submitted in cassette A. B. In a container labeled antrum, the specimen consists of three less than 0.1 cm to 0.2 cm portions of tissue, entirely submitted in cassette B. C. In a container labeled G-junction, the specimen consists of a 0.2 cm portion of tissue, entirely submitted in cassette C. ([id number]) /FRR . 02 Microscopic: . Immunohistochemical stains are performed to further evaluate for the presence of Helicobacter organisms. The patient tissue is stained with monoclonal antibody to Helicobacter pylori (SP48). Positive and negative controls stain appropriately. . RESULT: Block: B1 Helicobacter pylori: Negative. . * This test was developed and its performance characteristics determined by [facility]. It has not been cleared or approved by the U.S. Food and Drug Administration. The FDA has determined that such clearance or approval is not necessary. This test is used for clinical purposes. It should not be regarded as investigational or for research. . 02 Pathologist provided ICD-10: K29.70 . 02 CPT . 195647, 703136, 344831, [id number] Performed at: 01 [facility] [address] [address], [place], [place] [id number] MD Shawn Alberto MD Phone: [phone] Performed at: 02 [facility] [id number] [place] [id number] MD Jw Galvez MD Phone: [phone]
[2018-03-03 11:33] VITALS: BP 173/68; PULSE 64; RESP 15; TEMP 36.5; O2SAT 98; BMI 30.4
[2018-03-03] MEDS: SODIUM CHLORIDE 0.9% 1,000 ML 200 ML IV (11:54)
[2018-03-03 12:28] LABS: Add Manual Diff / Slide Review NO; Eosinophils Percent Auto 2.5 % (2-4); Hematocrit 38.5 % (41-53); Hemoglobin 13.3 g/dL (13.5-17.5); Lymphocytes Percent Auto 14.7 % (25-40); Mean Corpuscular HGB Conc 34.6 % (30-36); Mean Corpuscular Hemoglobin 33.2 PG (26-34); Mean Corpuscular Volume 95.9 fL (80-100); Monocytes Percent Auto 11.1 % (3-14); Neutrophils Absolute Auto 4800 /uL (3000-5900); Neutrophils Percent Auto 70.7 % (50-75); Platelet Count 214 X10^3/uL (150-400); Red Blood Cell Count 4.02 X10^6/uL (4.5-5.9); Red Cell Distribution Width 15.4 % (11.6-14.8); White Blood Cell Count 6.8 X10^3/uL (4.5-11.0)
[2018-03-03 12:33] VITALS: BP 142/69; PULSE 62; RESP 12; TEMP 36.8; O2SAT 94
[2018-03-03 12:38] VITALS: BP 141/59; PULSE 65; RESP 15; O2SAT 96
--- NOTE | 2018-03-03 12:40 | SUR.PHASEI ---
dr turk to bedside- informed pt of colonoscopy needed.
[2018-03-03 12:44] VITALS: BP 134/66; PULSE 60; RESP 10; O2SAT 94
[2018-03-03 12:49] VITALS: BP 139/63; PULSE 62; RESP 13; TEMP 36.6; O2SAT 95
[2018-03-03 13:01] VITALS: BP 135/60; PULSE 60; RESP 16; TEMP 36.7; O2SAT 94
--- NOTE | 2018-03-03 13:05 | SUR.PHASEII ---
outcomes met- unable to chart.
--- NOTE | 2018-03-03 13:06 | OP_ITS ---
Operative Date/Time/Diagnoses Date of procedure: 03/03/18 Time of procedure: 13:06 Pre-op diagnosis: Gastrointestinal hemorrhage Post-op diagnosis: same Procedure & Clinicians Procedure: Esophagogastroduodenoscopies with biopsies Same procedure as scheduled: Yes Indications: Gastrointestinal hemorrhage felt to be likely upper GI in source Surgeon: Frances Hill Click Yes if Unassisted: Yes Anesthesia Type: General Operative Notes Findings: 1. Normal duodenum without any evidence of ulceration or hemorrhage 2. Very mild antral gastritis without evidence of gross ulceration 3. GE junction at 42 cm from the incisors without any perceptible hiatal hernia. Very regular appearing Z-line 4. Presbyesophagus 5. No explanation for recent symptoms of GI hemorrhage. Recommend prep followed by colonoscopy. Closure Type: not applicable Specimen(s): other (Cold forceps biopsies of 1.-antrum; 2.-duodenum; 3.-GE junction) Estimated Blood Loss (mL): 2 Procedure in detail: After obtaining informed consent, the patient was brought to the GI suite and placed in the left lateral decubitus position on the examination table. After placement of appropriate monitors, the patient was given incremental doses of Versed and Fentanyl until an appropriate level of sedation was achieved. A time out was held per SCOAP protocol. A bite block was gently placed between the patient's teeth. The endoscope was lubricated and then passed into the patient's posterior oropharynx. The esophagus was cannulated under direct vision and the scope was passed to the second portion of the duodenum without difficulty. The scope was then withdrawn with careful examination of all areas of the upper GI tract and mucosa. In the stomach, the instrument was retroflexed and the GE junction examined. The scope was straightened and the procedure continued with examination of the remainder of the upper GI tract. Findings are noted above. Air was aspirated from the stomach and the endoscope gently removed from the esophagus. The patient was allowed to awaken from sedation without difficulty and taken to the post-anesthesia care unit in good condition. Complications: none Condition: stable Disposition: PACU Plan for aftercare: 1. Discharge to home 2. I have already contacted the office regarding scheduling him for colonoscopy after appropriate prep. Patient is aware that he will need this procedure in the near future. Signed By:<Electronically signed by Frances Hill MD> 03/10/18 1039
--- NOTE | 2018-03-03 13:28 | SUR.PHASEII ---
friend came, pt ready to go home- left in stable condition.
== END 2018-03-03 13:20 | disposition home or self-care (01) ==
PROVIDERS: Specialist; PCP Physician Assistant; Visit Provider Surgery
PROC: 0DJ08ZZ Inspection of Upper Intestinal Tract, Via Natural or Artificial Opening Endoscopic (ICD-10-PCS; CPT 43235; principal; 2018-03-03 12:30)
DX: K29.70 Gastritis, unspecified, without bleeding (principal); Z79.01 Long term (current) use of anticoagulants; I48.91 Unspecified atrial fibrillation; I42.9 Cardiomyopathy, unspecified; I50.9 Heart failure, unspecified; G62.9 Polyneuropathy, unspecified
CPT/HCPCS: 43239; 85025; 88305; 88342; J0330; J2704; J3010

== ENCOUNTER 2018-03-11 10:27 | Day surgery (SDC) | payer MEDICARE, MEDICAID, SELFPAY ==
--- NOTE | 2018-03-10 17:06 | PM.OP.1 ---
Operative Date/Time/Diagnoses Date of procedure: 03/03/18 Time of procedure: 13:06 Pre-op diagnosis: Gastrointestinal hemorrhage Post-op diagnosis: same Procedure & Clinicians Procedure: Esophagogastroduodenoscopies with biopsies Same procedure as scheduled: Yes Indications: Gastrointestinal hemorrhage felt to be likely upper GI in source Surgeon: Frances Hill Click Yes if Unassisted: Yes Anesthesia Type: General Operative Notes Findings: 1. Normal duodenum without any evidence of ulceration or hemorrhage 2. Very mild antral gastritis without evidence of gross ulceration 3. GE junction at 42 cm from the incisors without any perceptible hiatal hernia. Very regular appearing Z-line 4. Presbyesophagus 5. No explanation for recent symptoms of GI hemorrhage. Recommend prep followed by colonoscopy. Closure Type: not applicable Specimen(s): other (Cold forceps biopsies of 1.-antrum; 2.-duodenum; 3.-GE junction) Estimated Blood Loss (mL): 2 Procedure in detail: After obtaining informed consent, the patient was brought to the GI suite and placed in the left lateral decubitus position on the examination table. After placement of appropriate monitors, the patient was given incremental doses of Versed and Fentanyl until an appropriate level of sedation was achieved. A time out was held per SCOAP protocol. A bite block was gently placed between the patient's teeth. The endoscope was lubricated and then passed into the patient's posterior oropharynx. The esophagus was cannulated under direct vision and the scope was passed to the second portion of the duodenum without difficulty. The scope was then withdrawn with careful examination of all areas of the upper GI tract and mucosa. In the stomach, the instrument was retroflexed and the GE junction examined. The scope was straightened and the procedure continued with examination of the remainder of the upper GI tract. Findings are noted above. Air was aspirated from the stomach and the endoscope gently removed from the esophagus. The patient was allowed to awaken from sedation without difficulty and taken to the post-anesthesia care unit in good condition. Complications: none Condition: stable Disposition: PACU Plan for aftercare: 1. Discharge to home 2. I have already contacted the office regarding scheduling him for colonoscopy after appropriate prep. Patient is aware that he will need this procedure in the near future.
--- NOTE | 2018-03-11 | PATH_ITS ---
[facility] Accession Number: [id number] . 01 Material submitted: . PART A: MID RIGHT COLON POLYP PART B: CECAL POLYPS . 02 Diagnosis: A. Mid Right Colon Polyp: Tubular adenoma. . B. Cecal Polyps: Fragments of tubular adenoma. MRV/03/15/2018 . 02 Electronically signed: . Jose Giles MD, PhD, Pathologist NPI- [id number] . 01 Gross description: . Received two formalin-filled containers, both labeled with the patient's name. . A. In a container labeled mid right colon polyp are multiple less than 0.1 to 0.3 cm portions of tissue. Filtered, wrapped and entirely submitted in cassette A. B. In a container labeled cecal polyp are multiple less than 0.1 to 0.4 cm portions of tissue. Filtered, wrapped and entirely submitted in cassette B. ([facility] [place]:[id number]) /MRV . 02 Pathologist provided ICD-10: D12.6, D12.0 . 02 CPT . 474985, 339018 Performed at: 01 [facility] [address], [place], [place] [id number] MD Shawn Alberto MD Phone: [phone] Performed at: 02 [facility] [address] [place], [place] [id number] MD Jw Galvez MD Phone: [phone]
[2018-03-11 11:21] VITALS: BP 163/62; PULSE 61; RESP 16; TEMP 36; O2SAT 94; BMI 30.4
[2018-03-11] MEDS: MIDAZOLAM 5 MG/5 ML VIAL IV (14:16)
[2018-03-11] MEDS: fentaNYL 250 MCG/5 ML INJ IV (14:16)
[2018-03-11 14:52] VITALS: BP 126/64; PULSE 64; RESP 18; TEMP 36.2; O2SAT 97
--- NOTE | 2018-03-11 14:53 | PM.OP.1 ---
Operative Date/Time/Diagnoses Date of procedure: 03/11/18 Time of procedure: 15:15 Pre-op diagnosis: GI hemorrhage Post-op diagnosis: same Procedure & Clinicians Procedure: Colonoscopy to the cecum with polypectomy x3 Same procedure as scheduled: Yes Indications: Recent GI hemorrhage Last colonoscopy 1 year ago Surgeon: Frances Hill Anesthesia Type: Sedation (Versed and fentanyl) Operative Notes Findings: 1. Adequate prep 2. Three sessile polyps were identified and removed. Two were in the cecum and removed with snare and cautery. The 3rd were in the mid right colon and removed with snare and cautery. All polyps were retained for pathology 3. Her anastomosis identified and in good repair without evidence of inflammation or leakage 4. No obvious cause for recent hemorrhage 5. Grade 1 or 2 internal hemorrhoids 6. A repeat colonoscopy in 3-5 years or as clinically indicated Closure Type: not applicable Specimen(s): other Estimated Blood Loss (mL): 1 Procedure in detail: After obtaining informed consent, the patient was brought to the GI suite and placed in the left lateral decubitus position on the examination table. After placement of appropriate monitors, the patient was given incremental doses of Versed and Fentanyl until an appropriate level of sedation was achieved. A time out was held per SCOAP protocol. A digital rectal examination was performed and did not reveal any masses or obstructing lesions. The colonoscope was gently passed into the patient's anus and the entire colon navigated to the level of the cecum with minimal difficulty. Once in the cecum, the scope was withdrawn being sure to go before and beyond all mucosal folds and prominences and get an excellent examination. The findings are noted above. At the level of the rectal vault, the scope was retroflexed and the internal anal canal was examined. The scope was straightened and air aspirated from the colon. The instrument was removed from the patient's body and the procedure was concluded. The patient was allowed to awaken from sedation without difficulty and taken to the post-anesthesia care unit in good condition. Total sedation time was 31 min Total withdrawal time 17 min 21 sec Complications: none Disposition: PACU Plan for aftercare: 1. Discharge to home 2. Plan for next colonoscopy in 3-5 years or as clinically indicated
[2018-03-11 14:56] VITALS: BP 127/62; PULSE 60; RESP 16; O2SAT 96
[2018-03-11 15:02] VITALS: BP 132/66; PULSE 60; RESP 16; O2SAT 97
[2018-03-11 15:12] VITALS: BP 140/64; PULSE 60; RESP 16; TEMP 36.1; O2SAT 96
--- NOTE | 2018-03-11 15:14 | PM.PREOP ---
Pre-operative Note Interval Note Pre-op Check: Yes History & Physical Reviewed by Physician Changes: Yes H&P completed within 30 days and has changed as indicated here:: EGD completed last week and revealed no etiology for dark tarry stools or for chronic anemia ASA Class (for procedural sedation): III
[2018-03-11 16:15] VITALS: BP 142/65; PULSE 53; RESP 16; TEMP 36.4; O2SAT 96
--- NOTE | 2018-03-11 16:18 | SUR.PHASEII ---
iv dc'd by jocelyn harvey rn , 1000 cc infused
--- NOTE | 2018-03-11 16:19 | SUR.PHASEII ---
pt dressed ready to go , assisted to w/c , crutches with patient, transferred to car with friend , vss, no questions
== END 2018-03-11 16:05 | disposition home or self-care (01) ==
PROVIDERS: Surgery; PCP Physician Assistant; Visit Provider Specialist
PROC: 0DJD8ZZ Inspection of Lower Intestinal Tract, Via Natural or Artificial Opening Endoscopic (ICD-10-PCS; CPT 45378; principal; 2018-03-11 11:45)
DX: K92.2 Gastrointestinal hemorrhage, unspecified (principal); K64.1 Second degree hemorrhoids; I48.91 Unspecified atrial fibrillation; I50.9 Heart failure, unspecified; I10 Essential (primary) hypertension; I42.9 Cardiomyopathy, unspecified; E78.5 Hyperlipidemia, unspecified; Z79.01 Long term (current) use of anticoagulants; D12.0 Benign neoplasm of cecum; D12.6 Benign neoplasm of colon, unspecified
CPT/HCPCS: 45385; 88305; 99152; 99153; J2250; J3010

== ENCOUNTER → 2018-03-15 08:38 | Outpatient (CLI) | payer MEDICARE, MEDICAID, SELFPAY ==
[2018-03-15 09:46] LABS: Alanine Aminotransferase 20 IU/L (21-72); Albumin 3.9 g/dL (3.5-5.0); Albumin Globulin Ratio 1.4 (1.0-2.8); Alkaline Phosphatase 48 U/L (38-126); Aspartate Aminotransferase 15 IU/L (17-59); BUN Creatinine Ratio 23.8 (6-22); Bilirubin Total 0.6 mg/dL (0.2-1.3); Blood Urea Nitrogen 19 mg/dL (9-20); Calcium 9.3 mg/dL (8.4-10.2); Carbon Dioxide 30 mmol/L (22-32); Chloride 107 mmol/L (98-107); Cholesterol 103 mg/dL (140-199); Estimated Glomerular Filt Rate > 60.0 mL/min (>60); Globulin 2.8 g/dL (1.7-4.1); Glucose 92 mg/dL (80-110); HDL Cholesterol 47 mg/dL (40-60); HEMOLYSIS < 15 (0-50); LDL Cholesterol Calculated 44 mg/dL (<100); Potassium 3.8 mmol/L (3.4-5.1); Sodium 144 mmol/L (137-145); Total Protein 6.7 g/dL (6.3-8.2); Triglycerides 61 mg/dL (35-150)
[2018-03-15 10:33] LABS: Thyroid Stimulating Hormone 1.58 uIU/mL (0.47-4.68)
== END ==
PROVIDERS: PCP Physician Assistant; Visit Provider Internal Medicine Cardiovascular Disease
DX: E78.5 Hyperlipidemia, unspecified (principal); Z79.899 Other long term (current) drug therapy; I10 Essential (primary) hypertension
CPT/HCPCS: 36415; 80053; 80061; 84443

== ENCOUNTER → 2018-04-14 08:56 | Outpatient (CLI) | payer MEDICARE, MEDICAID, SELFPAY ==
[2018-04-14 09:40] LABS: Hematocrit 38.8 % (41-53); Hemoglobin 13.3 g/dL (13.5-17.5)
[2018-04-14 10:21] LABS: HEMOLYSIS < 15 (0-50); Iron 84 ug/dL (49-181)
[2018-04-14 10:24] LABS: Alanine Aminotransferase 30 IU/L (21-72); Albumin 4.1 g/dL (3.5-5.0); Albumin Globulin Ratio 1.4 (1.0-2.8); Alkaline Phosphatase 57 U/L (38-126); Aspartate Aminotransferase 21 IU/L (17-59); Bilirubin Total 0.7 mg/dL (0.2-1.3); Blood Urea Nitrogen 17 mg/dL (9-20); Calcium 9.3 mg/dL (8.4-10.2); Carbon Dioxide 29 mmol/L (22-32); Chloride 107 mmol/L (98-107); Estimated Glomerular Filt Rate > 60.0 mL/min (>60); Glucose 93 mg/dL (80-110); HEMOLYSIS < 15 (0-50); Sodium 143 mmol/L (137-145); Total Protein 7.1 g/dL (6.3-8.2)
[2018-04-14 10:31] LABS: Percent Iron Saturation 26 % (20-50); Total Iron Binding Capacity 321 ug/dL (261-462); Transferrin 248 mg/dL (206-381); Vitamin D 25 Hydroxy (D3) 31.2 ng/mL (30.0-100.0)
[2018-04-14 11:06] LABS: Ferritin 25.4 ng/mL (17.9-464); Thyroid Stimulating Hormone 2.84 uIU/mL (0.47-4.68)
== END ==
PROVIDERS: Family Provider Physician Assistant; PCP Physician Assistant; Visit Provider Internal Medicine Cardiovascular Disease
DX: Z79.899 Other long term (current) drug therapy (principal); M85.80 Other specified disorders of bone density and structure, unspecified site; E56.9 Vitamin deficiency, unspecified; D50.9 Iron deficiency anemia, unspecified; I42.0 Dilated cardiomyopathy
CPT/HCPCS: 36415; 80053; 82306; 82728; 83540; 83550; 84443; 85014; 85018

== ENCOUNTER 2018-04-22 09:48 | Emergency (ER) | payer MEDICARE, MEDICAID, SELFPAY ==
[2018-04-22 09:50] VITALS: BP 178/57; PULSE 61; RESP 16; TEMP 36.8; O2SAT 97; BMI 28.9
--- NOTE | 2018-04-22 09:51 | ED.GENADULT ---
HPI - General Adult General Chief complaint: Extremity Problem,Nontraumatic Stated complaint: on warafin, bruising/red corine going up arm Time Seen by Provider: 04/22/18 09:51 Source: patient Mode of arrival: ambulatory Limitations: no limitations History of Present Illness HPI narrative: Patient is a 67-year-old male on Coumadin for atrial fibrillation who went to the walk-in clinic this morning for an INR check. He has an INR of 2.1 this morning. He states he has bruising on his left arm that is extending up his arm and is painful he was instructed to come to the emergency department for evaluation. Patient states that he frequently gets bruising but it normally is not this painful. He reports no specific trauma. States he has had a bruise for approximately 1 week. Related Data Home Medications Medication Instructions Recorded Confirmed ferrous sulfate [Iron (ferrous 650 mg PO BID #0 12/24/16 03/11/18 sulfate)] cholecalciferol (vitamin D3) 2,000 unit PO QDAY #0 07/20/17 03/11/18 [Vitamin D3] amiodarone 400 mg tablet 200 mg PO DAILY 12/24/17 03/11/18 carvedilol 12.5 mg PO BID 02/15/18 03/11/18 Previous Rx's Medication Instructions Recorded omeprazole 20 mg PO BID #180 cap 07/20/17 spironolactone 25 mg PO QDAY #90 tab 08/26/17 atorvastatin 20 mg tablet 20 mg PO HS #90 tab 01/11/18 losartan 25 mg tablet 12.5 mg PO QDAY #45 tab 02/01/18 furosemide 20 mg tablet 20 mg PO .COMPLEX #45 tab 02/22/18 carvedilol 25 mg tablet 25 mg PO BID #60 tab 03/02/18 tamsulosin 0.4 mg capsule 0.4 mg PO QDAY #90 cap 04/01/18 Allergies Allergy/AdvReac Type Severity Reaction Status Date / Time ciprofloxacin Allergy Severe BREATHING Verified 03/11/18 11:14 PROBLEMS, CHILLS, SHAKES alendronate sodium AdvReac Severe GI bleed Verified 03/11/18 11:14 [ALENDRONATE SODIUM] morphine AdvReac Mild ABD PAIN Verified 03/11/18 11:14 Review of Systems Cardiovascular Denies chest pain and Denies dyspnea Respiratory Denies dyspnea Gastrointestinal Gastrointestinal: Denies abdominal pain Genitourinary Denies dysuria Musculoskeletal Comments: no left shoulder, left elbow left wrist or left hand pain Integumentary/Breasts Comments: Bruising to left arm Neurologic Comments: no tingling left upper extremity Hematologic/Lymphatic Reports easy bruising [facility] Medical History Anemia (Chronic Unknown) Atrial fibrillation (Chronic 06/2017) CHF (congestive heart failure) (Chronic ~06/2017) Cardiomyopathy (Chronic 06/2017) Hyperlipemia (Chronic Unknown) Hypertension (Chronic Unknown) Neurogenic bladder (Chronic Unknown) Neuropathy (Chronic Unknown) Osteoarthritis (Chronic Unknown) Osteopenia (Chronic 03/2016) Duodenal ulcer (Resolved Unknown) Encephalopathy (Resolved Unknown) Gastric ulcer (Resolved Unknown) Gastritis (Resolved Unknown) Peptic ulcer (Resolved Unknown) Surgical History History of bilateral knee replacement (Resolved Unknown) History of colon resection (Resolved) History of left hip replacement (Resolved Unknown) Hx of shoulder surgery (Resolved Unknown) Family History Mother Cancer Social History household members: none Smoking Status: Never smoker second hand exposure: No alcohol intake: never substance use type: does not use Exam Initial Vital Signs Initial Vital Signs: Vital Signs Temperature 98.2 F 04/22/18 09:50 Pulse Rate 61 04/22/18 09:50 Respiratory Rate 16 04/22/18 09:50 Blood Pressure 178/57 H 04/22/18 09:50 Pulse Oximetry 97 04/22/18 09:50 Const General: cooperative, comfortable, well developed, well groomed and No acute distress Orientation: alert, awake and oriented x3 Resp Effort & Inspection: normal respiratory effort Auscultation: clear to auscultation bilaterally Cardio Rate: regular rate Rhythm: regular rhythm Pulses: radial pulses present Skin Other: patient with a 3 cm bruise located on the volar aspect of his left arm just distal to the elbow. This does seem to extend down toward his wrists but to a lesser extent. Also extends proximal but does not cross the elbow joint. Not warm to touch. No breaks in the skin. No vesicles. Neuro Sensory Exam: no sensory deficits noted Extrem Left upper extremity: normal to inspection and normal capillary refill; no cyanosis and no edema Psych Appearance: grossly normal and well kempt Course Vital Signs - 8 hr 04/22/18 09:50 Temperature 98.2 F Pulse Rate 61 Respiratory Rate 16 Blood Pressure 178/57 H Pulse Oximetry 97 Medical Decision Making MDM Narrative Medical decision making narrative: Patient has bruise on his left arm today appears like a bruise. No signs of cellulitis. His neurovascular intact. Doubt DVT. INR is 2.1 this morning. Will hold on further workup for now. Patient can follow up with his primary care doctor. Discharge Plan Departure Patient Disposition: Home Clinical Impression: Contusion Instructions: DI for Contusion Activity Restrictions/Additional Instructions: continue taking the Coumadin. Your INR was 2.1 this morning. I would not make any changes to this medication. The area in Your left arm does appear to be a bruise. call your primary care doctor for a follow-up. Prescriptions: No Action ferrous sulfate [Iron (ferrous sulfate)] 325 MG tablet 650 mg PO BID Qty: 0 RF: 0 cholecalciferol (vitamin D3) [Vitamin D3] 2,000 UNIT capsule 2,000 unit PO QDAY Qty: 0 RF: 0 omeprazole 20 MG capsule,delayed release(DR/EC) 20 mg PO BID Qty: 180 RF: 3 spironolactone 25 MG tablet 25 mg PO QDAY Qty: 90 RF: 1 amiodarone 400 mg tablet 200 mg PO DAILY RF: 0 atorvastatin [Lipitor] 20 mg tablet 20 mg PO HS Qty: 90 RF: 3 losartan 25 mg tablet 12.5 mg PO QDAY Qty: 45 RF: 0 furosemide 20 mg tablet 20 mg PO .COMPLEX Qty: 45 RF: 3 carvedilol [Coreg] 25 mg tablet 25 mg PO BID Qty: 60 RF: 3 tamsulosin [Flomax] 0.4 mg capsule 0.4 mg PO QDAY Qty: 90 RF: 3 carvedilol 12.5 mg tablet 12.5 mg PO BID RF: 0
== END 2018-04-22 10:20 | disposition home or self-care (01) ==
PROVIDERS: Emergency Provider Emergency Medicine; PCP Physician Assistant
DX: S40.022A Contusion of left upper arm, initial encounter (principal); Z79.01 Long term (current) use of anticoagulants
CPT/HCPCS: 99282

== ENCOUNTER → 2018-06-23 11:18 | Outpatient (CLI) | payer MEDICARE, MEDICAID, SELFPAY ==
[2018-06-23 12:13] LABS: Hematocrit 39.6 % (41-53); Hemoglobin 13.5 g/dL (13.5-17.5)
[2018-06-23 12:29] LABS: INR 2.3 (0.9-1.3); Prothrombin Time 26.6 SECONDS (10.1-12.7)
[2018-06-23 12:40] LABS: Iron 280 ug/dL (49-181)
== END ==
PROVIDERS: PCP Physician Assistant; Visit Provider Physician Assistant
DX: Z86.2 Personal history of diseases of the blood and blood-forming organs and certain disorders involving the immune mechanism (principal); I48.91 Unspecified atrial fibrillation
CPT/HCPCS: 36415; 83540; 85014; 85018; 85610

== ENCOUNTER → 2018-06-30 08:09 | Outpatient (CLI) | payer MEDICARE, MEDICAID, SELFPAY ==
[2018-06-30 09:25] LABS: Hematocrit 39.2 % (41-53); Hemoglobin 13.1 g/dL (13.5-17.5)
[2018-06-30 09:58] LABS: Blood Urea Nitrogen 30 mg/dL (9-20); Calcium 9.5 mg/dL (8.4-10.2); Carbon Dioxide 25 mmol/L (22-32); Chloride 105 mmol/L (98-107); Estimated Glomerular Filt Rate > 60.0 mL/min (>60); Glucose 86 mg/dL (80-110); HEMOLYSIS < 15 (0-50); Potassium 4.2 mmol/L (3.4-5.1); Sodium 140 mmol/L (137-145)
== END ==
PROVIDERS: PCP Physician Assistant; Visit Provider Internal Medicine Cardiovascular Disease
DX: Z79.899 Other long term (current) drug therapy (principal); Z86.2 Personal history of diseases of the blood and blood-forming organs and certain disorders involving the immune mechanism
CPT/HCPCS: 36415; 80048; 85014; 85018

== ENCOUNTER → 2018-07-01 08:06 | Outpatient (CLI) | payer MEDICARE, MEDICAID, SELFPAY ==
--- NOTE | 2018-07-01 | DI.ECHO.S_ITS ---
[facility]---------[facility] +---------+ : : [address] : : : : [id number] : : : : Phone: [phone]+ Echocardiogram Report + + :Name: EULOGIO BENAVIDEZ Study Date: 07/01/2018 Height: 69 in : :[facility] Weight: 189 lb : : Gender: Male BSA: 2.0 m2 : :: 1950 Age: 67 yrs BP: 150/50 mmHg: :Reason For Study: Cardiomyopathy, Dilated : :Ordering Physician: Caty : :Quang Performed By: Doreen Covington : :Referring: PRACHI Zhou : + + Interpretation Summary The left ventricle is moderately dilated. Calculated LV end-diastolic diameter of 7.5 cm is not accurate. The ejection fraction is estimated to be 50-55%. Left ventricular systolic function has significantly improved compared to the previous exam. There is no thrombus. The right ventricle is mildly dilated. The right ventricular systolic function is normal. This is improved compared to the previous study. There is moderate aortic regurgitation. Compared to the prior echo study, there has been no change in the severity of aortic regurgitation. There is mild tricuspid regurgitation. The right ventricular systolic pressure is estimated to be at least 37 mmHg based on an estimated right atrial pressure of 3 mm Hg. Compared to the prior echo exam, there has been a decrease in TR severity. Compared to the prior echo exam, there has been a decrease in the severity of pulmonary hypertension. The ascending aorta is moderately enlarged. Ascending aorta 4.3 cm in diameter. In July 21, 2017 it was 4.1 cm. The aortic arch is mildly enlarged. Aortic arch diameter 3.7 cm. In June 2017 it was 3.8 cm. Procedure: A two-dimensional transthoracic echocardiogram with color flow and Doppler was performed. The study quality was technically adequate. Comparison is made with the echocardiogram of 07-21-17. The patient was in normal sinus rhythm during the exam. Left Ventricle: The left ventricle is moderately dilated. Left ventricular wall thickness is at the upper limits of normal. There is no thrombus. The ejection fraction is estimated to be 50-55%. Left ventricular systolic function has significantly improved compared to the previous exam. There are no focal wall motion abnormalities. MV E/A: 1.2 Med Peak E' Anthony: 3.9 cm/sec E/E' med: 19.1. Right Ventricle: The right ventricle is mildly dilated. The right ventricular systolic function is normal. This is improved compared to the previous study. Atria: The left atrium is moderately dilated. The left atrium has mildly decreased in size since the prior echo exam. The right atrium is normal in size. The interatrial septum is intact with no evidence for an atrial septal defect. Mitral Valve: The mitral valve leaflets appear mildly thickened, but open well. There is prolapse of the anterior mitral valve leaflet. There is trace mitral regurgitation. Aortic Valve: The aortic valve opens well. The aortic valve is trileaflet. There is moderate aortic regurgitation. Compared to the prior echo study, there has been no change in the severity of aortic regurgitation. Tricuspid Valve: The tricuspid valve leaflets are thin and pliable. There is mild tricuspid regurgitation. The right ventricular systolic pressure is estimated to be at least 37 mmHg based on an estimated right atrial pressure of 3 mm Hg. Compared to the prior echo exam, there has been a decrease in TR severity. Compared to the prior echo exam, there has been a decrease in the severity of pulmonary hypertension. Pulmonic Valve: The pulmonic valve is not well visualized. There is trace pulmonic regurgitation. Great Vessels: The aortic root is severely dilated. The ascending aorta is moderately enlarged. The aortic arch is mildly enlarged. The IVC is of normal diameter and collapses greater than 50% with a sniff. This suggests a low right atrial pressure of 3 mm Hg. Pericardium/ Pleura There is no pericardial effusion. There is no pleural effusion. MMode/2D Measurements & Calculations LVIDd: 7.5 cm Ao root diam: 4.8 cm LVIDs: 4.8 cm Aortic Jxn: 3.7 cm FS: 35.9 % asc Aorta Diam: 4.3 cm EPSS: 2.2 cm Ao Arch Diam (Prox Trans): 3.7 cm IVSd: 1.1 cm LVPWd: 0.81 cm LV fulton. diameter/BSA (cm/m^2): 3.7 LV sys. diameter/BSA (cm/m^2): 2.4 LA dimension: 4.9 cm RA long axis: 5.7 cm LA A2 area: 26.2 cm2 RA area: 20.6 cm2 LA A4 area: 25.4 cm2 RA vol: 63.5 ml LA length (vol): 6.0 cm RA : 31.5 ml/m2 LA vol: 94.1 ml IVC diam: 2.0 cm LA vol index: 46.7 ml/m2 RVDd major: 7.2 cm RVD1 (basal): 4.5 cm RVD2 (mid): 3.8 cm Doppler Measurements & Calculations Ao V2 max: 185.0 cm/sec AI P1/2t: 504.5 msec Ao V2 mean: 103.6 cm/sec AI dec slope: 254.9 cm/sec2 Ao max P.7 mmHg Ao mean P.4 mmHg Ao V2 VTI: 39.6 cm MV E max anthony: 74.4 cm/sec TR max anthony: 292.5 cm/sec MV A max anthony: 59.6 cm/sec TR max P.2 mmHg MV E/A: 1.2 PA V2 max: 63.5 cm/sec Med Peak E' Anthony: 3.9 cm/sec PA V2 mean: 37.4 cm/sec E/E' med: 19.1 PA mean P.71 mmHg Lat Peak E' Anthony: 5.2 cm/sec PA Accel Time: 0.18 sec E/E' lat: 14.4 E/e' average: 16.8 MV dec time: 0.43 sec MV P1/2t: 125.0 msec MV P1/2t max anthony: 74.0 cm/sec MVA(P1/2t): 1.8 cm2 Reading Physician:PM
== END ==
PROVIDERS: PCP Physician Assistant; Visit Provider Internal Medicine Cardiovascular Disease
DX: I08.3 Combined rheumatic disorders of mitral, aortic and tricuspid valves (principal); I42.0 Dilated cardiomyopathy; I77.810 Thoracic aortic ectasia
CPT/HCPCS: 93306

== ENCOUNTER → 2018-07-02 10:14 | Outpatient (CLI) | payer MEDICARE, MEDICAID, SELFPAY ==
--- NOTE | 2018-07-09 13:39 | PM.PFT.1 ---
Pulmonary Function Test Referral & Results Date Patient Seen: 07/02/18 Requesting provider: Caty Del Rio Indication: Chronic systolic heart failure Results: The spirometry demonstrates an FVC of 4.22 L which is 96% of predicted. The FEV1 was measured at 3.28 L which is 100% of predicted. The FEV1/FVC ratio was 78 which is 104% of predicted. Following the administration of bronchodilator there was no appreciable change. Lung volumes show an SVC of 4.24 L which is 94% of predicted. The diffusing capacity was measured at 26.33 which is 84% of predicted. The maximum voluntary ventilation was normal Interpretation: This study demonstrates normal pulmonary function
== END ==
PROVIDERS: PCP Physician Assistant; Visit Provider Internal Medicine Cardiovascular Disease
DX: I50.22 Chronic systolic (congestive) heart failure (principal)
CPT/HCPCS: 94060; 94726; 94729

== ENCOUNTER 2018-07-17 08:32 | Emergency (ER) | payer MEDICARE, MEDICAID, SELFPAY ==
--- NOTE | 2018-07-17 08:35 | ED.MALEGU ---
HPI - Male Genitourinary General Chief complaint: Urogenital-Male Stated complaint: LEFT SCROTUM ENLARGED Time Seen by Provider: 07/17/18 08:34 Source: patient Mode of arrival: ambulatory Limitations: no limitations History of Present Illness HPI Narrative: 67-year-old male sent over from the walk-in clinic for evaluation of left testicular pain and swelling. Patient states that 3 days ago he started to notice some discomfort. Yesterday he stated that the pain has worsened until this morning. He states that he if he is lying down and not moving his pain is very tolerable he states that he can only lay on his right side secondary to the pain. When he is up moving around it is a dull ache. No urinary symptoms. He has had a diagnosis of orchitis in the past. No fevers. No change in bowel habits. No trauma. Related Data Home Medications Medication Instructions Recorded Confirmed cholecalciferol (vitamin D3) 2,000 unit PO QDAY #0 07/20/17 05/31/18 [Vitamin D3] carvedilol 12.5 mg PO BID 02/15/18 05/31/18 ferrous sulfate 325 mg (65 mg See Label Instructions PO BID 05/03/18 05/31/18 iron) tablet amiodarone 100 mg tablet 100 mg PO DAILY 07/01/18 Previous Rx's Medication Instructions Recorded omeprazole 20 mg PO BID #180 cap 07/20/17 spironolactone 25 mg PO QDAY #90 tab 08/26/17 atorvastatin 20 mg tablet 20 mg PO HS #90 tab 01/11/18 furosemide 20 mg tablet 20 mg PO .COMPLEX #45 tab 02/22/18 tamsulosin 0.4 mg capsule 0.4 mg PO QDAY #90 cap 04/01/18 varicella-zoster glycoE [id number] 50 mcg IM ONCE #1 each 05/03/18 adj(PF) 50 mcg/0.5 mL IM susp, kit carvedilol 25 mg tablet 25 mg PO BID #60 tab 06/25/18 warfarin 3 mg tablet 3 mg PO DAILY #30 tab 07/05/18 cephalexin [Keflex] 500 mg PO BID 7 Days #14 cap 07/17/18 Allergies Allergy/AdvReac Type Severity Reaction Status Date / Time ciprofloxacin Allergy Severe BREATHING Verified 07/17/18 08:42 PROBLEMS, CHILLS, SHAKES alendronate sodium AdvReac Severe GI bleed Verified 07/17/18 08:42 [ALENDRONATE SODIUM] morphine AdvReac Mild ABD PAIN Verified 07/17/18 08:42 Review of Systems Constitutional Denies fever(s) ENT Ears, Nose, Mouth, and Throat: Denies sore throat, Denies throat swelling and Denies tongue swelling Cardiovascular Denies chest pain and Denies dyspnea Respiratory Denies dyspnea Gastrointestinal Gastrointestinal: Denies abdominal pain, Denies nausea and Denies vomiting Genitourinary Denies hematuria, Denies genital lesions, Reports genital pain, Denies dysuria, Denies nocturia, Denies penile discharge, Reports scrotal swelling, Reports testicular pain, Denies urinary frequency, Denies urinary hesitancy, Denies urinary incontinence and Denies urinary urgency Musculoskeletal Denies myalgias and Denies arthralgias Integumentary/Breasts Denies rash Neurologic Denies behavioral changes Psychiatric Denies behavioral changes Hematologic/Lymphatic Comments: On Coumadin Allergic/Immunologic Denies throat swelling and Denies tongue swelling [facility] Social History household members: none Smoking Status: Never smoker second hand exposure: No alcohol intake: never substance use type: does not use Exam Initial Vital Signs Initial Vital Signs: Vital Signs Temperature 98.1 F 07/17/18 08:42 Pulse Rate 60 07/17/18 08:42 Respiratory Rate 20 07/17/18 08:42 Blood Pressure 185/54 H 07/17/18 08:42 Pulse Oximetry 96 07/17/18 08:42 Const General: cooperative, healthy appearing, comfortable, well developed, well groomed and No acute distress Orientation: alert, awake and oriented x3 HENMT Head: normal to inspection and normocephalic Neck Neck: normal visual inspection Lymphatic: No lymphadenopathy Resp Effort & Inspection: normal respiratory effort Cardio Rate: regular rate Pulses: radial pulses present GI Inspection: non-distended Palpation: soft, No firm and No tender Other: Well-healed surgical incisions External: circumcised Penis: normal penis Scrotum: cremasteric reflex present Other: Right testicle unremarkable. Left testicle enlarged and tender to palpation with a normal lie. Positive cremasteric reflex bilateral Skin Lesions: no lesions Rashes: no rashes Other: No rashes or redness around the scrotum Neuro General: alert, awake and oriented x3 Cognition: normal cognition Speech: speech normal Extrem General: normal to inspection and capillary refill normal Psych Appearance: grossly normal and well kempt Course Orders Ordered: ED Orders 07/17/18 08:36 US scrotum Stat 07/17/18 08:50 Prothrombin Time INR Stat 07/17/18 09:30 Urine Culture Stat Urine Microscopic Stat Discontinued Medications Hydrocodone Bitart/Acetaminophen ([place] 5/325) 1 tab PO NOW ONE Stop: 07/17/18 08:42 Last Admin: 07/17/18 08:59 Dose: 1 tab Vital Signs - 8 hr 07/17/18 08:42 07/17/18 09:34 07/17/18 10:12 Temperature 98.1 F Pulse Rate 60 52 L Respiratory Rate 20 16 Blood Pressure 185/54 H Blood Pressure [Left Arm] 156/49 H 136/52 L Pulse Oximetry 96 94 MDM - Male Genitourinary Lab Data Attestation: I reviewed the patient's lab results. Lab Results 07/17/18 07/17/18 Range/Units 08:50 09:30 PT 38.3 H (10.1-12.7) SECONDS INR 3.2 H (0.9-1.3) Urine RBC 1-5/hpf (0-5/HPF) Urine WBC 30-100/hpf H (0-5/HPF) Ur Squamous Epith Cells 1-5 /hpf Urine Bacteria Many (>30) H (None) Ur Culture Indicated? Specimen cultured Urine Dip Bedside Urine Glucose Negative Bedside Urine Bilirubin - Negative Bedside Urine Ketone - Negative Urine Specific Panther 1.020 Bedside Urine Occult Blood ++ Bedside Urine pH 6.0 Bedside Urine Protein +/- 15 Bedside Urine Urobilinogen +/- 1mg Bedside Urine Nitrite + Positive Bedside Urine Leukocytes +++ 500 Esterase Imaging Data Scrotal ultrasound: Radiologist's impression: PROCEDURE: US SCROTUM INDICATIONS: PAIN TECHNIQUE: Real-time scanning was performed of the scrotum and testicles, with image documentation. Color and pulse Doppler interrogation was performed of both testicles. COMPARISON: None. FINDINGS: Right: Testicle is normal in size at 4.7 x 2.1 x 3.1 cm, and heterogeneous in echotexture. Epididymis is normal in overall size and morphology. There is a 0.8 cm epididymal head cyst. No hydrocele or varicoceles. Overlying scrotal skin is normal in thickness. Left: Testicle is normal in size at 4.9 x 3.3 x 3.1 cm, and homogeneous in echotexture. Epididymis is normal in overall size and morphology. No varicoceles. A septated fluid collection with internal septations is noted within the left scrotum Overlying scrotal skin is normal in thickness. Doppler: Color and pulse Doppler demonstrate normal and symmetric arterial flow in both testicles. IMPRESSION: 1. Septated left fluid collection most consistent with a spermatocele. 2. Small right epididymal head cyst. 3. Normal bilateral testicular vascularity. No findings to suggest torsion at this time. Dictated by: Veronique Paredes M.D. on 07/17/2018 at 9:56 Approved by: Veronique Paredes M.D. on 07/17/2018 at 10:01 [facility] Narrative Medical decision making narrative: Patient does self cath however urinalysis today is concerning for urinary tract infection with nitrite positive and also bacteria. Patient is not currently preventative antibiotics. Given his urinalysis I will treat him with antibiotics. Patient's ultrasound today shows a spermatocele. This is consistent with his physical exam. We discussed this diagnosis. We discussed return precautions. He expressed understanding and agreement plan. Discharge Plan Departure Patient Disposition: Home Clinical Impression: Spermatocele, Urinary tract infection Instructions: Urinary Tract Infection Activity Restrictions/Additional Instructions: Recommend you take the antibiotics as directed. Call your urologist for a follow-up. Return to the emergency department for any new or worsening symptoms Prescriptions: New cephalexin [Keflex] 500 mg capsule 500 mg PO BID 7 Days Qty: 14 RF: 0 No Action ferrous sulfate [Iron (ferrous sulfate)] 325 mg (65 mg iron) tablet See Patient Comments PO BID RF: 0 varicella-zoster [id number] (PF) [Shingrix (PF)] 50 mcg/0.5 mL suspension for reconstitution 50 mcg IM ONCE Qty: 1 RF: 1 amiodarone 100 mg tablet 100 mg PO DAILY RF: 0 warfarin 3 mg tablet 3 mg PO DAILY Qty: 30 RF: 0 cholecalciferol (vitamin D3) [Vitamin D3] 2,000 UNIT capsule 2,000 unit PO QDAY Qty: 0 RF: 0 omeprazole 20 MG capsule,delayed release(DR/EC) 20 mg PO BID Qty: 180 RF: 3 spironolactone 25 MG tablet 25 mg PO QDAY Qty: 90 RF: 1 atorvastatin [Lipitor] 20 mg tablet 20 mg PO HS Qty: 90 RF: 3 furosemide 20 mg tablet 20 mg PO .COMPLEX Qty: 45 RF: 3 tamsulosin [Flomax] 0.4 mg capsule 0.4 mg PO QDAY Qty: 90 RF: 3 carvedilol [Coreg] 25 mg tablet 25 mg PO BID Qty: 60 RF: 3 carvedilol 12.5 mg tablet 12.5 mg PO BID RF: 0
[2018-07-17 08:42] VITALS: BP 185/54; PULSE 60; RESP 20; TEMP 36.7; O2SAT 96
--- NOTE | 2018-07-17 08:53 | PC.NURSE ---
Dr. Ornelas performed a testicle assessment on pt.
[2018-07-17] MEDS: HYDROCODONE/ACET 5/325 TABLET 1 TAB PO (08:59)
[2018-07-17 09:05] LABS: INR 3.2 (0.9-1.3); Prothrombin Time 38.3 SECONDS (10.1-12.7)
[2018-07-17 09:34] VITALS: BP 156/49
[2018-07-17 10:02] LABS: Bacteria Urine Many (>30); Culture Indicated Urine Specimen Cultured; RBC Urine 1-5/HPF (0-5/HPF); Squamous Epithelial Cell Urine 1-5 /HPF; WBC Urine 30-100/HPF (0-5/HPF)
[2018-07-17 10:12] VITALS: BP 136/52; PULSE 52; RESP 16; O2SAT 94
[2018-07-17 10:30] VITALS: BP 150/49; PULSE 51; RESP 16; O2SAT 93
[2018-07-17 10:47] VITALS: BP 150/49; PULSE 51; RESP 18; O2SAT 94
== END 2018-07-17 10:46 | disposition home or self-care (01) ==
PROVIDERS: Emergency Provider Emergency Medicine; PCP Physician Assistant
DX: N43.40 Spermatocele of epididymis, unspecified (principal); N39.0 Urinary tract infection, site not specified
CPT/HCPCS: 36415; 76870; 81003; 81015; 85610; 87077; 87086; 87186; 99283; 99284

== ENCOUNTER → 2018-07-28 10:41 | Outpatient (CLI) | payer MEDICARE, MEDICAID, SELFPAY | PROVIDERS: PCP Physician Assistant; Visit Provider Physician Assistant | DX: N39.0 Urinary tract infection, site not specified (principal) | CPT/HCPCS: 87077; 87086; 87186 ==

== ENCOUNTER → 2018-09-07 10:18 | Outpatient (CLI) | payer MEDICARE, MEDICAID, SELFPAY ==
[2018-09-07 12:15] LABS: Hematocrit 38.5 % (41-53); Hemoglobin 13.2 g/dL (13.5-17.5)
[2018-09-07 12:33] LABS: HEMOLYSIS < 15 (0-50); Iron 108 ug/dL (49-181)
[2018-09-07 12:46] LABS: Percent Iron Saturation 33 % (20-50); Total Iron Binding Capacity 324 ug/dL (261-462); Transferrin 238 mg/dL (206-381)
== END ==
PROVIDERS: PCP Physician Assistant; Visit Provider Physician Assistant
DX: Z86.2 Personal history of diseases of the blood and blood-forming organs and certain disorders involving the immune mechanism (principal)
CPT/HCPCS: 36415; 83540; 83550; 85014; 85018

== ENCOUNTER 2018-10-06 09:33 | Emergency (ER) | payer MEDICARE, MEDICAID, SELFPAY ==
[2018-10-06] VITALS (10 sets, daily range): BP systolic 181–198; BP diastolic 56–73; PULSE 52–93; RESP 10–18; TEMP 37; O2SAT 93–96
--- NOTE | 2018-10-06 09:44 | DI.RAD.S_ITS ---
PROCEDURE: XR CHEST 2V INDICATIONS: wheeze, cp TECHNIQUE: 2 views of the chest were acquired. COMPARISON: [facility], CR, XR CHEST 1V, 02/15/2018, 12:52. FINDINGS: Surgical changes and devices: None. Lungs and pleura: Patchy opacities noted in the right lung base concerning for pneumonia versus aspiration. Patchy opacities in the left lung base which represent atelectasis, aspiration or pneumonia. Small right-sided pleural fluid collection noted. Mediastinum: Mediastinal contours are normal. Heart size is normal. Bones and chest wall: No suspicious bony abnormalities. Soft tissues appear unremarkable. IMPRESSION: Right basilar patchy opacity and small right subpleural fluid collection concerning for aspiration versus pneumonia. Dictated by: Aye Arita MD, PhD on 10/06/2018 at 10:21 Approved by: Aye Arita MD, PhD on 10/06/2018 at 10:22
--- NOTE | 2018-10-06 11:07 | ED.CHESTPAIN ---
HPI - Chest Pain General Chief Complaint: Chest Pain Stated Complaint: chest pain, sob Time Seen by Provider: 10/06/18 11:07 Source: patient Mode of arrival: ambulatory Limitations: no limitations History of Present Illness HPI narrative: 67-year-old male here for evaluation of 4 days of shortness of breath, nonproductive cough, and chest discomfort. He states that the symptoms have been constant for the past 4 days. No abdominal pain. Has not tried anything for symptoms prior to arrival. No fevers. Related Data Home Medications Medication Instructions Recorded Confirmed cholecalciferol (vitamin D3) 2,000 unit PO QDAY #0 07/20/17 09/08/18 [Vitamin D3] carvedilol 25 mg tablet 25 mg PO QAM 09/01/18 10/06/18 atorvastatin [Lipitor] 20 mg PO BEDTIME 10/06/18 10/06/18 carvedilol 12.5 mg PO QPM 10/06/18 10/06/18 furosemide 20 mg PO Q OTHER DAY 10/06/18 10/06/18 omeprazole 40 mg PO BID 10/06/18 10/06/18 Previous Rx's Medication Instructions Recorded tamsulosin 0.4 mg capsule 0.4 mg PO QDAY #90 cap 04/01/18 varicella-zoster glycoE [id number] 50 mcg IM ONCE #1 each 05/03/18 adj(PF) 50 mcg/0.5 mL IM susp, kit warfarin 3 mg tablet 3 mg PO DAILY #30 tab 08/04/18 Disabled [address]ing Placard #1 ea 09/08/18 azithromycin See Rx Instructions .ROUTE 10/06/18 .COMPLEX #6 tab Allergies Allergy/AdvReac Type Severity Reaction Status Date / Time ciprofloxacin Allergy Severe BREATHING Verified 09/08/18 09:39 PROBLEMS, CHILLS, SHAKES alendronate sodium AdvReac Severe GI bleed Verified 09/08/18 09:39 [ALENDRONATE SODIUM] cephalexin AdvReac Mild Headache Verified 09/08/18 09:39 morphine AdvReac Mild ABD PAIN Verified 09/08/18 09:39 Review of Systems Constitutional Denies fever(s) Cardiovascular Reports chest pain, Reports dyspnea and Reports dyspnea on exertion Respiratory Reports dyspnea and Reports dyspnea on exertion Gastrointestinal Gastrointestinal: Denies abdominal pain, Denies nausea and Denies vomiting Musculoskeletal Denies myalgias and Denies arthralgias Integumentary/Breasts Denies rash Hematologic/Lymphatic Comments: On Coumadin [facility] Medical History Anemia (Chronic Unknown) Atrial fibrillation (Chronic 06/2017) CHF (congestive heart failure) (Chronic ~06/2017) Cardiomyopathy (Chronic 06/2017) Hyperlipemia (Chronic Unknown) Hypertension (Chronic Unknown) Neurogenic bladder (Chronic Unknown) Neuropathy (Chronic Unknown) Osteoarthritis (Chronic Unknown) Osteopenia (Chronic 03/2016) Duodenal ulcer (Resolved Unknown) Encephalopathy (Resolved Unknown) Gastric ulcer (Resolved Unknown) Gastritis (Resolved Unknown) Peptic ulcer (Resolved Unknown) Surgical History History of bilateral knee replacement (Resolved Unknown) History of colon resection (Resolved) History of left hip replacement (Resolved Unknown) Hx of shoulder surgery (Resolved Unknown) Family History Mother Cancer Social History household members: none Smoking Status: Never smoker second hand exposure: No alcohol intake: never substance use type: does not use Family History Mother Cancer Social History household members: none Smoking Status: Never smoker second hand exposure: No alcohol intake: never substance use type: does not use Exam Initial Vital Signs Initial Vital Signs: Vital Signs Temperature 98.6 F 10/06/18 09:40 Pulse Rate 60 10/06/18 09:40 Respiratory Rate 16 10/06/18 09:40 Blood Pressure 192/73 H 10/06/18 09:40 Pulse Oximetry 93 10/06/18 09:40 Const General: cooperative, well developed, well groomed, No acute distress and No in distress Orientation: alert, awake and oriented x3 HENMT Head: normal to inspection and normocephalic Resp Effort & Inspection: normal respiratory effort Auscultation: clear to auscultation bilaterally Cardio Rate: regular rate Rhythm: regular rhythm GI Inspection: non-distended Palpation: soft Skin Lesions: no lesions Rashes: no rashes Neuro General: alert and oriented x3 Cognition: normal cognition Extrem General: normal to inspection and capillary refill normal Psych Appearance: grossly normal and well kempt Course Orders Ordered: ED Orders 10/06/18 09:35 EKG-12 Lead Stat 10/06/18 09:43 Complete Blood Count AUTO DIFF Stat Comprehensive Metabolic Panel Stat Lipase Stat Troponin & CK Cardiac Panel Stat 10/06/18 09:44 Chest [XR chest 2V] Stat 10/06/18 13:54 Troponin I Stat Sodium Chloride (Normal Saline 0.9%) 1,000 mls @ 150 mls/hr IV CONT RICARDO Last Admin: 10/06/18 11:24 Dose: 150 mls/hr Discontinued Medications Aspirin (Aspirin Chew) 324 mg PO NOW ONE Stop: 10/06/18 09:44 Last Admin: 10/06/18 11:25 Dose: 324 mg Vital Signs - 8 hr 10/06/18 09:40 10/06/18 10:30 10/06/18 11:00 Temperature 98.6 F Pulse Rate 60 54 L 93 H Respiratory Rate 16 13 10 L Blood Pressure 192/73 H Blood Pressure [Right Arm] 184/62 H 191/57 H Pulse Oximetry 93 94 93 10/06/18 11:30 10/06/18 12:00 10/06/18 12:30 Temperature Pulse Rate 53 L 52 L 52 L Respiratory Rate 16 12 15 Blood Pressure Blood Pressure [Right Arm] 193/57 H 192/67 H 184/56 H Pulse Oximetry 94 96 94 10/06/18 13:00 10/06/18 13:30 Temperature Pulse Rate 54 L 58 L Respiratory Rate 16 13 Blood Pressure Blood Pressure [Right Arm] 198/67 H 181/62 H Pulse Oximetry 94 95 MDM - Chest Pain Lab Data Attestation: I reviewed the patient's lab results. Result diagrams: 10/06/18 09:43 10/06/18 09:43 Lab Results 10/06/18 10/06/18 10/06/18 Range/Units 09:43 09:43 13:54 WBC 7.7 (4.5-11.0) X10^3/uL RBC 3.74 L (4.5-5.9) X10^6/uL Hgb 11.7 L (13.5-17.5) g/dL Hct 34.0 L (41-53) % MCV 91.0 (80-100) fL MCH 31.2 (26-34) PG MCHC 34.3 (30-36) % RDW 14.6 (11.6-14.8) % Plt Count 202 (150-400) X10^3/uL Neut % (Auto) 76.2 H (50-75) % Lymph % (Auto) 11.3 L (25-40) % [place] % (Auto) 9.1 (3-14) % Eos % (Auto) 2.2 (2-4) % Baso % (Auto) 1.2 (0-2) % Neut # (Auto) 5900 (7775-5961) /uL Lymph # (Auto) 900 L (1844-8759) /uL [place] # (Auto) 700 (0-900) /uL Eos # (Auto) 200 (0-450) /uL Baso # (Auto) 100 (0-100) /uL Sodium 139 (137-145) mmol/L Potassium 3.4 (3.4-5.1) mmol/L Chloride 105 (98-107) mmol/L Carbon Dioxide 26 (22-32) mmol/L BUN 21 H (9-20) mg/dL Creatinine 0.80 (0.66-1.25) mg/dL Estimated GFR > 60.0 (>60) mL/min BUN/Creatinine Ratio 26.3 H (6-22) Glucose 85 (80-110) mg/dL Calcium 9.4 (8.4-10.2) mg/dL Total Bilirubin 0.9 (0.2-1.3) mg/dL AST 13 L (17-59) IU/L ALT 22 (21-72) IU/L Alkaline Phosphatase 49 (38-126) U/L Total Creatine Kinase 51 L (55-170) U/L CK-MB (CK-2) TNP CK-MB (CK-2) Rel Index TNP Troponin I 0.024 0.025 (0.01-0.034) ng/mL Total Protein 5.8 L (6.3-8.2) g/dL Albumin 3.5 (3.5-5.0) g/dL Globulin 2.3 (1.7-4.1) g/dL Albumin/Globulin Ratio 1.5 (1.0-2.8) Lipase 38 (23-300) U/L Imaging Data Chest x-ray: Radiologist's impression: [place] [id number] [place] [id number] XRay Report Signed Patient: Josh Mcguire EMR#: [id number] : 2Acct:[id number] Age/Sex: 67 / MDate of Service: 10/06/18 Loc: ED Accession Number: [id number] Procedure: XR chest 2V Ordering Provider: Marco A Ornelas D.O. PROCEDURE: XR CHEST 2V INDICATIONS: wheeze, cp TECHNIQUE: 2 views of the chest were acquired. COMPARISON: [facility], CR, XR CHEST 1V, 02/15/2018, 12:52. FINDINGS: Surgical changes and devices: None. Lungs and pleura: Patchy opacities noted in the right lung base concerning for pneumonia versus aspiration. Patchy opacities in the left lung base which represent atelectasis, aspiration or pneumonia. Small right-sided pleural fluid collection noted. Mediastinum: Mediastinal contours are normal. Heart size is normal. Bones and chest wall: No suspicious bony abnormalities. Soft tissues appear unremarkable. IMPRESSION: Right basilar patchy opacity and small right subpleural fluid collection concerning for aspiration versus pneumonia. Dictated by: Aye Arita MD, PhD on 10/06/2018 at 10:21 Approved by: Aye Arita MD, PhD on 10/06/2018 at 10:2 ECG Data Attestation: I personally reviewed and interpreted this ECG as follows: Prior ECG tracings: not available for review Interpretation: Sinus bradycardia Ventricular rate of 59 First degree AV block p.r. interval of 243 milliseconds LVH Normal axis Nonspecific ST T wave changes MDM Narrative Medical decision making narrative: Chest x-ray is concerning for pneumonia however the patient is afebrile. EKG shows nonspecific changes and his troponin is unchanged. He has had constant symptoms for the past 4 days. Low suspicion for ACS. Discussed the fact that his chest x-ray could be concerning for pneumonia and that could be the cause of his symptoms. Will treat with antibiotics secondary to this. Will hold on further workup for now. Patient was given return precautions and follow-up instructions. He expressed understanding and agreement with plan. Discharge Plan Departure Patient Disposition: Home Clinical Impression: Pneumonia Qualifiers: Pneumonia type: due to unspecified organism Laterality: right Lung location: lower lobe of lung Qualified Code(s): J18.1 - Lobar pneumonia, unspecified organism Instructions: DI for Pneumonia -- Adult Activity Restrictions/Additional Instructions: Take the antibiotics as directed. Continue the rest of your medications as directed. Contact your primary care doctor for a follow-up. Return to the emergency department for any new or worsening symptoms Prescriptions: New azithromycin 250 mg tablet See Rx Instructions .ROUTE .COMPLEX Qty: 6 RF: 0 No Action varicella-zoster [id number] (PF) [Shingrix (PF)] 50 mcg/0.5 mL suspension for reconstitution 50 mcg IM ONCE Qty: 1 RF: 1 carvedilol [Coreg] 25 mg tablet 25 mg PO QAM RF: 0 Disabled Parking Placard Qty: 1 RF: 0 cholecalciferol (vitamin D3) [Vitamin D3] 2,000 UNIT capsule 2,000 unit PO QDAY Qty: 0 RF: 0 tamsulosin [Flomax] 0.4 mg capsule 0.4 mg PO QDAY Qty: 90 RF: 3 warfarin 3 mg tablet 3 mg PO DAILY Qty: 30 RF: 2 carvedilol 12.5 mg tablet 12.5 mg PO QPM RF: 0 atorvastatin [Lipitor] 20 mg tablet 20 mg PO BEDTIME RF: 0 omeprazole 20 mg capsule,delayed release(DR/EC) 40 mg PO BID RF: 0 furosemide 20 mg tablet 20 mg PO Q OTHER DAY RF: 0 Referrals: La Zhou PA-C [Primary Care Provider] -
[2018-10-06 11:15] LABS: Add Manual Diff / Slide Review NO; Basophils Absolute Auto 100 /uL (0-100); Basophils Percent Auto 1.2 % (0-2); Eosinophils Absolute Auto 200 /uL (0-450); Eosinophils Percent Auto 2.2 % (2-4); Hemoglobin 11.7 g/dL (13.5-17.5); Lymphocytes Absolute Auto 900 /uL (1100-4500); Lymphocytes Percent Auto 11.3 % (25-40); Mean Corpuscular HGB Conc 34.3 % (30-36); Mean Corpuscular Hemoglobin 31.2 PG (26-34); Monocytes Absolute Auto 700 /uL (0-900); Monocytes Percent Auto 9.1 % (3-14); Neutrophils Absolute Auto 5900 /uL (1500-7000); Neutrophils Percent Auto 76.2 % (50-75); Platelet Count 202 X10^3/uL (150-400); Red Blood Cell Count 3.74 X10^6/uL (4.5-5.9); Red Cell Distribution Width 14.6 % (11.6-14.8); White Blood Cell Count 7.7 X10^3/uL (4.5-11.0)
[2018-10-06] MEDS: SODIUM CHLORIDE 0.9% 1,000 ML 150 ML IV (11:24)
[2018-10-06] MEDS: ASPIRIN 81 MG TAB 324 MG PO (11:25)
[2018-10-06 12:39] LABS: Alanine Aminotransferase 22 IU/L (21-72); Albumin 3.5 g/dL (3.5-5.0); Albumin Globulin Ratio 1.5 (1.0-2.8); Alkaline Phosphatase 49 U/L (38-126); Aspartate Aminotransferase 13 IU/L (17-59); BUN Creatinine Ratio 26.3 (6-22); Bilirubin Total 0.9 mg/dL (0.2-1.3); Blood Urea Nitrogen 21 mg/dL (9-20); Calcium 9.4 mg/dL (8.4-10.2); Carbon Dioxide 26 mmol/L (22-32); Chloride 105 mmol/L (98-107); Creatine Kinase 51 U/L (55-170); Estimated Glomerular Filt Rate > 60.0 mL/min (>60); Globulin 2.3 g/dL (1.7-4.1); Glucose 85 mg/dL (80-110); HEMOLYSIS < 15 (0-50); Lipase 38 U/L (23-300); Potassium 3.4 mmol/L (3.4-5.1); Sodium 139 mmol/L (137-145); Total Protein 5.8 g/dL (6.3-8.2)
[2018-10-06 12:52] LABS: Troponin I 0.024 ng/mL (0.01-0.034)
[2018-10-06 14:23] LABS: Troponin I 0.025 ng/mL (0.01-0.034)
== END 2018-10-06 14:53 | disposition home or self-care (01) ==
PROVIDERS: Emergency Provider Emergency Medicine; PCP Physician Assistant
DX: J18.1 Lobar pneumonia, unspecified organism (principal); R07.9 Chest pain, unspecified
CPT/HCPCS: 36415; 36591; 71046; 80053; 82550; 83690; 84484; 85025; 93005; 93010; 96360; 96361; 99284; 99285

== ENCOUNTER → 2018-10-12 10:04 | Outpatient (CLI) | payer MEDICARE, MEDICAID, SELFPAY ==
[2018-10-12 11:11] LABS: Hematocrit 37.4 % (41-53); Hemoglobin 12.6 g/dL (13.5-17.5)
[2018-10-12 11:25] LABS: B Type Natriuretic Peptide 831 (<100)
[2018-10-12 11:28] LABS: HEMOLYSIS < 15 (0-50); Iron 54 ug/dL (49-181)
[2018-10-12 11:38] LABS: Percent Iron Saturation 15 % (20-50); Total Iron Binding Capacity 357 ug/dL (261-462); Transferrin 262 mg/dL (206-381)
[2018-10-12 11:45] LABS: Vitamin D 25 Hydroxy (D3) 27.5 ng/mL (30.0-100.0)
[2018-10-12 12:02] LABS: Ferritin 12.9 ng/mL (17.9-464)
[2018-10-12 12:16] LABS: Vitamin B12 438 pg/mL (239-931)
== END ==
PROVIDERS: PCP Physician Assistant; Visit Provider Physician Assistant
DX: E56.9 Vitamin deficiency, unspecified (principal); R53.83 Other fatigue; R06.00 Dyspnea, unspecified; R93.89 Abnormal findings on diagnostic imaging of other specified body structures; Z86.2 Personal history of diseases of the blood and blood-forming organs and certain disorders involving the immune mechanism
CPT/HCPCS: 36415; 82306; 82607; 82728; 83540; 83550; 83880; 85014; 85018

== ENCOUNTER 2018-10-16 09:00 | Emergency (ER) | payer MEDICARE, MEDICAID, SELFPAY ==
[2018-10-16 09:07] VITALS: BP 185/78; PULSE 76; RESP 16; TEMP 36.4; O2SAT 96
--- NOTE | 2018-10-16 09:29 | ED.MALEGU ---
HPI - Male Genitourinary General Chief complaint: Urogenital-Male Stated complaint: L TESTICLE SWOLLEN Time Seen by Provider: 10/16/18 09:29 Source: patient Mode of arrival: ambulatory Limitations: no limitations History of Present Illness HPI Narrative: This is a 67-year-old male comes to the emergency department with complaint of left testicular pain and swelling. patient states symptoms have been going on for about a month date have been a little bit worse for the last 2 days. He states he will sort of wax and wane in intensity. He has also noticed in the last couple days a little bit of swelling in the left inguinal crease. He states when it resolves when he lays flat. It seems to be more present when he stands. Same thing with the pulling swelling of the testicle as well as some pain in the testicle. 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 Patient uses a 14 [place] catheter on a regular schedule. He has not had any other new changes with his urination. He has not had any issues with bowel movements and is stooling regularly. He has not had any abdominal pain. He has not had any flank pain. no nausea, no vomiting. he has not had any chest pain or shortness of breath today but he has no congestive heart failure and states that he had anemia which has been recurrent. Patient states that he had a GI bleed the past. He is still on Coumadin. Related Data Home Medications Medication Instructions Recorded Confirmed carvedilol 25 mg tablet 25 mg PO QAM 09/01/18 10/14/18 atorvastatin [Lipitor] 20 mg PO BEDTIME 10/06/18 10/14/18 omeprazole 40 mg PO BID 10/06/18 10/14/18 cholecalciferol (vitamin D3) 2,000 4,000 unit PO QDAY #0 cap 10/12/18 10/14/18 unit capsule furosemide 20 mg tablet 20 mg PO DAILY tab 10/12/18 10/14/18 ferrous sulfate 325 mg (65 mg 325 mg PO 3XW tab 10/14/18 10/14/18 iron) tablet Previous Rx's Medication Instructions Recorded tamsulosin 0.4 mg capsule 0.4 mg PO QDAY #90 cap 04/01/18 warfarin 3 mg tablet 3 mg PO DAILY #30 tab 08/04/18 Disabled Parking Placard #1 ea 09/08/18 varicella-zoster glycoE [id number] 50 mcg IM ONCE #1 each 10/12/18 adj(PF) 50 mcg/0.5 mL IM rebel rodney carvedilol 12.5 mg tablet 12.5 mg PO QPM #90 tab 10/14/18 amlodipine 5 mg PO DAILY #20 tab 10/16/18 doxycycline hyclate 100 mg PO BID #28 cap 10/16/18 Allergies Allergy/AdvReac Type Severity Reaction Status Date / Time ciprofloxacin Allergy Severe BREATHING Verified 10/14/18 11:52 PROBLEMS, CHILLS, SHAKES alendronate sodium AdvReac Severe GI bleed Verified 10/14/18 11:52 [ALENDRONATE SODIUM] cephalexin AdvReac Mild Headache Verified 10/14/18 11:52 morphine AdvReac Mild ABD PAIN Verified 10/14/18 11:52 Review of Systems Review of Systems ROS Unobtainable: All systems reviewed & are unremarkable except as noted in HPI and below Cardiovascular Denies chest pain, Denies chest pain at rest, Denies diaphoresis, Denies edema, Denies dyspnea, Denies dyspnea on exertion and Denies orthopnea Respiratory Denies cough, Denies dyspnea, Denies dyspnea on exertion and Denies wheezing Gastrointestinal Gastrointestinal: Denies abdominal pain, Denies change in bowel habits, Denies diarrhea, Denies nausea and Denies vomiting Genitourinary Reports as per HPI, Denies hematuria, Reports difficulty urinating (Self cath), Denies genital pain, Denies flank pain, Denies penile discharge, Reports scrotal swelling (Of left-sided), Denies testicular mass and Reports testicular pain (Left-sided) Allergic/Immunologic Denies wheezing [facility] Medical History Anemia (Chronic Unknown) Atrial fibrillation (Chronic 06/2017) CHF (congestive heart failure) (Chronic ~06/2017) Cardiomyopathy (Chronic 06/2017) Hyperlipemia (Chronic Unknown) Hypertension (Chronic Unknown) Neurogenic bladder (Chronic Unknown) Neuropathy (Chronic Unknown) Osteoarthritis (Chronic Unknown) Osteopenia (Chronic 03/2016) Duodenal ulcer (Resolved Unknown) Encephalopathy (Resolved Unknown) Gastric ulcer (Resolved Unknown) Gastritis (Resolved Unknown) Peptic ulcer (Resolved Unknown) Surgical History History of bilateral knee replacement (Resolved Unknown) History of colon resection (Resolved) History of left hip replacement (Resolved Unknown) Hx of shoulder surgery (Resolved Unknown) Family History Mother Cancer Social History household members: none Smoking Status: Never smoker second hand exposure: No alcohol intake: never substance use type: does not use Social History household members: none Smoking Status: Never smoker second hand exposure: No alcohol intake: never substance use type: does not use Exam Narrative Exam Narrative: GENERAL: Alert and oriented x three, well nourished male that does appear pale. HEENT: Head normocephalic, atraumatic, EOMI, pupils reactive, face symmetric, moist mucous membranes NECK: Supple, full range of motion CARDIOVASCULAR: Regular rate and rhythm without murmurs, rubs or gallops. RESPIRATORY: Breath sounds equal bilaterally, no wheezes rales or rhonchi. ABDOMEN: Soft, nontender. Normoactive bowel sounds all 4 quadrants. No guarding or rebound, rigidity, no mass : No CVA tenderness. Male: Patient's left testicle does appear enlarged, patient is nontender to palpation. I am not able to palpate some any inguinal lumps or hernias, not able to palpate any in the testicle at this time, no penile discharge or lesions, testicles non-tender, cremasteric reflex intact, no inguinal hernias noted at this time. EXTREMITIES: Normal range of motion, no clubbing or edema. Neurovascularly intact NEUROLOGICAL: Cranial nerves II through XII grossly intact. Moving all extremities SKIN: Warm, dry, no petechiae, no rashes or lesions. Initial Vital Signs Initial Vital Signs: Vital Signs Temperature 97.6 F 10/16/18 09:07 Pulse Rate 76 10/16/18 09:07 Respiratory Rate 16 10/16/18 09:07 Blood Pressure 185/78 H 10/16/18 09:07 Pulse Oximetry 96 10/16/18 09:07 Course Orders Ordered: ED Orders 10/16/18 11:50 Urinalysis and Microscopic Stat Urine Culture Stat Discontinued Medications Acetaminophen (Tylenol) 975 mg PO NOW ONE Stop: 10/16/18 12:31 Last Admin: 10/16/18 12:43 Dose: 975 mg Ceftriaxone Sodium (Rocephin) 250 mg IM NOW ONE Stop: 10/16/18 14:54 Last Admin: 10/16/18 15:09 Dose: Not Given Ceftriaxone Sodium 250 mg/ (Dextrose) 50 mls @ 100 mls/hr IV NOW ONE Stop: 10/16/18 15:09 Last Infusion: 10/16/18 16:02 Dose: 0 mls/hr Admin: 10/16/18 15:23 Dose: 100 mls/hr Potassium Chloride (Potassium Chloride) 40 meq PO NOW ONE Stop: 10/16/18 11:25 Last Admin: 10/16/18 12:43 Dose: 40 meq Vital Signs - 8 hr 10/16/18 12:33 10/16/18 13:30 10/16/18 16:02 Pulse Rate 67 67 71 Respiratory Rate 14 13 18 Blood Pressure 184/67 H Blood Pressure [Left Arm] 189/70 H 160/68 H Pulse Oximetry 97 95 95 MDM - Male Genitourinary Lab Data Result diagrams: 10/16/18 10:09 10/16/18 10:09 Lab Results 10/16/18 10/16/18 10/16/18 Range/Units 10:09 10:09 10:09 WBC 7.5 (4.5-11.0) X10^3/uL RBC 3.87 L (4.5-5.9) X10^6/uL Hgb 11.9 L (13.5-17.5) g/dL Hct 34.9 L (41-53) % MCV 90.2 (80-100) fL MCH 30.7 (26-34) PG MCHC 34.0 (30-36) % RDW 14.8 (11.6-14.8) % Plt Count 227 (150-400) X10^3/uL Neut % (Auto) 71.2 (50-75) % Lymph % (Auto) 11.0 L (25-40) % [place] % (Auto) 14.5 H (3-14) % Eos % (Auto) 2.4 (2-4) % Baso % (Auto) 0.9 (0-2) % Neut # (Auto) 5300 (4808-1759) /uL Lymph # (Auto) 800 L (2869-6082) /uL [place] # (Auto) 1100 H (0-900) /uL Eos # (Auto) 200 (0-450) /uL Baso # (Auto) 100 (0-100) /uL PT 17.8 H (10.1-12.7) SECONDS INR 1.5 H (0.9-1.3) Sodium 141 (137-145) mmol/L Potassium 3.2 L (3.4-5.1) mmol/L Chloride 106 (98-107) mmol/L Carbon Dioxide 28 (22-32) mmol/L BUN 18 (9-20) mg/dL Creatinine 0.70 (0.66-1.25) mg/dL Estimated GFR > 60.0 (>60) mL/min BUN/Creatinine Ratio 25.7 H (6-22) Glucose 85 (80-110) mg/dL Calcium 9.0 (8.4-10.2) mg/dL Total Bilirubin 0.5 (0.2-1.3) mg/dL AST 13 L (17-59) IU/L ALT 21 (21-72) IU/L Alkaline Phosphatase 49 (38-126) U/L Total Creatine Kinase 53 L (55-170) U/L CK-MB (CK-2) TNP CK-MB (CK-2) Rel Index TNP Troponin I 0.025 (0.01-0.034) ng/mL B-Natriuretic Peptide (<100) Total Protein 6.2 L (6.3-8.2) g/dL Albumin 3.5 (3.5-5.0) g/dL Globulin 2.7 (1.7-4.1) g/dL Albumin/Globulin Ratio 1.3 (1.0-2.8) Urine Color Urine Appearance Urine pH (4.5-8.0) Ur Specific [place] (1.000-1.035) Urine Protein (Negative) Urine Glucose (UA) (Negative) g/dL Urine Ketones (NEGATIVE) Urine Occult Blood (Negative) Urine Nitrate (Negative) Urine Bilirubin (NEGATIVE) Urine Urobilinogen (0.2) E.U./dL Ur Leukocyte Esterase (NEGATIVE) Urine RBC (0-5/HPF) Urine WBC (0-5/HPF) Ur Squamous Epith Cells (0-5/HPF) Urine Bacteria (None) Ur Culture Indicated? 10/16/18 10/16/18 Range/Units 10:09 11:50 WBC (4.5-11.0) X10^3/uL RBC (4.5-5.9) X10^6/uL Hgb (13.5-17.5) g/dL Hct (41-53) % MCV (80-100) fL MCH (26-34) PG MCHC (30-36) % RDW (11.6-14.8) % Plt Count (150-400) X10^3/uL Neut % (Auto) (50-75) % Lymph % (Auto) (25-40) % [place] % (Auto) (3-14) % Eos % (Auto) (2-4) % Baso % (Auto) (0-2) % Neut # (Auto) (7570-9449) /uL Lymph # (Auto) (2972-6453) /uL [place] # (Auto) (0-900) /uL Eos # (Auto) (0-450) /uL Baso # (Auto) (0-100) /uL PT (10.1-12.7) SECONDS INR (0.9-1.3) Sodium (137-145) mmol/L Potassium (3.4-5.1) mmol/L Chloride (98-107) mmol/L Carbon Dioxide (22-32) mmol/L BUN (9-20) mg/dL Creatinine (0.66-1.25) mg/dL Estimated GFR (>60) mL/min BUN/Creatinine Ratio (6-22) Glucose (80-110) mg/dL Calcium (8.4-10.2) mg/dL Total Bilirubin (0.2-1.3) mg/dL AST (17-59) IU/L ALT (21-72) IU/L Alkaline Phosphatase (38-126) U/L Total Creatine Kinase (55-170) U/L CK-MB (CK-2) CK-MB (CK-2) Rel Index Troponin I (0.01-0.034) ng/mL B-Natriuretic Peptide 408 H (<100) Total Protein (6.3-8.2) g/dL Albumin (3.5-5.0) g/dL Globulin (1.7-4.1) g/dL Albumin/Globulin Ratio (1.0-2.8) Urine Color Yellow Urine Appearance Cloudy Urine pH 7.0 (4.5-8.0) Ur Specific [place] 1.020 (1.000-1.035) Urine Protein 1+ H (Negative) Urine Glucose (UA) Negative (Negative) g/dL Urine Ketones Negative (NEGATIVE) Urine Occult Blood 3+ H (Negative) Urine Nitrate Positive (Negative) Urine Bilirubin Negative (NEGATIVE) Urine Urobilinogen 0.2 (0.2) E.U./dL Ur Leukocyte Esterase 3+ H (NEGATIVE) Urine RBC 30-100/hpf H (0-5/HPF) Urine WBC 30-100/hpf H (0-5/HPF) Ur Squamous Epith Cells None seen (0-5/HPF) Urine Bacteria Many (>30) H (None) Ur Culture Indicated? Specimen cultured ECG Data Attestation: I personally reviewed and interpreted this ECG as follows: Prior ECG tracings: available for review Interpretation: Sinus rhythm with second-degree AV block, patient appears to have prolonging pr interval with dropped beat. No 3rd degree block p waves do not march out. LVH. Rate of 66, QRS of 99 with a QTC of 436. No ST elevation or depression. MDM Narrative Medical decision making narrative: I suspect patient may have a hernia that is some reducing intermittently but will get a testicular ultrasound and urine. Patient self cast and he is about due to catheterization. He has recently had a worsening of his CHF as well as a decrease in his hemoglobin and he does appear little bit pale. He is not having a lot of symptoms currently but will go ahead and do some basic lab work to make sure no new changes. Lab work shows hemoglobin seems fairly close to baseline. INR is at 1.5, potassium slightly low at 3.2 and replace, troponins negative BNP is slightly elevated at 408. Urine shows some blood and leuks but no other nitrates. With epididymitis patient was started on antibiotics will wait for culture results. Anthony reviewed faxed EKG, 2nd degree, type 1. EF 50% on most recent ECHO through cardiology records, hx of poor EF 35%. Recommends stopping carevedilol and follow up outpatient Thursday for repeat EKG and adjust medications. Start Amlodipine 5mg daily for BP control until final decision is made per medications. BB may be causing some of changes. Spoke with Dr. Gomez from general surgery she recommend patient follow up with General surgery for surgical repair. Patient does not appear to be incarcerated today. He is only mildly tender to touch it self reduces while I am in the room. Plan for patient to take antibiotics is epididymitis. Did not put him on Levaquin secondary to his warfarin, placed on Rocephin and doxycycline. Discussed signs and symptoms to watch for and reasons to return. Patient comfortable with plan. Discharge Plan Departure Patient Disposition: Home Clinical Impression: Epididymitis, Hernia, inguinal, left, Mobitz type 1 second degree atrioventricular block Discharge Date/Time: 10/16/18 15:28 Interventions: ED Discharge Assessment Last Done: 10/16/18 16:02 Instructions: DI for Groin Hernia, Heart Block -- Adult, DI for Epididymitis Activity Restrictions/Additional Instructions: Call Thursday morning to follow up with her wastewater analyst lab analyst. Dr. Cruz would like you to be seen Thursday to have a repeat EKG and adjust your medications. Stop your Coreg/carvedilol until told to restart by her wastewater analyst lab analyst. Start amlodipine today take 5mg once daily. Take antibiotics until completely gone. Prescriptions sent to pharmacy. Follow-up with your physician regarding her epididymitis in the next 3-5 days for recheck. Follow-up with General surgery regarding your left inguinal hernia that has a bowel into the testicle. If it becomes very painful, does not reduce or go back into the abdomen or your having other new or concerning symptoms return for immediate recheck. Return for fevers greater than 100.4, passing out, new chest pain, shortness of breath, persistent vomiting, swelling in your lower extremities, sudden severe testicular pain, inability to have bowel movement or other new or concerning symptoms. Prescriptions: New doxycycline hyclate 100 mg capsule 100 mg PO BID Qty: 28 RF: 0 amlodipine 5 mg tablet 5 mg PO DAILY Qty: 20 RF: 0 No Action carvedilol [Coreg] 25 mg tablet 25 mg PO QAM RF: 0 Disabled Parking Placard Qty: 1 RF: 0 Shingrix (PF) 50 mcg/0.5 mL suspension for reconstitution 50 mcg IM ONCE Qty: 1 RF: 1 cholecalciferol (vitamin D3) [Vitamin D3] 2,000 unit capsule 4,000 unit PO QDAY Qty: 0 RF: 0 ferrous sulfate 325 mg (65 mg iron) tablet 325 mg PO 3XW RF: 0 carvedilol 12.5 mg tablet 12.5 mg PO QPM Qty: 90 RF: 1 tamsulosin [Flomax] 0.4 mg capsule 0.4 mg PO QDAY Qty: 90 RF: 3 warfarin 3 mg tablet 3 mg PO DAILY Qty: 30 RF: 2 furosemide 20 mg tablet 20 mg PO DAILY RF: 0 atorvastatin [Lipitor] 20 mg tablet 20 mg PO BEDTIME RF: 0 omeprazole 20 mg capsule,delayed release(DR/EC) 40 mg PO BID RF: 0 Referrals: La Zhou PA-C [Primary Care Provider] - Caty Del Rio MD [Physician] -
--- NOTE | 2018-10-16 09:55 | DI.US.S_ITS ---
PROCEDURE: US SCROTUM INDICATIONS: LEFT TESTICULAR SWELLING/PAIN, INTERMITTENT LEFT INGUINAL SW TECHNIQUE: Real-time scanning was performed of the scrotum and testicles, with image documentation. Color and pulse Doppler interrogation was performed of both testicles. COMPARISON: None. FINDINGS: Right: Testicle 4.1 x 3.4 x 2.3 cm, and slightly heterogeneous in echotexture, stable. Epididymis is normal in overall size and morphology. There is a right-sided hydrocele. No varicoceles. Overlying scrotal skin is normal in thickness. Left: Testicle measures 4.9 x 2.9 x 3.0 cm, and homogeneous in echotexture. Epididymis demonstrates hypervascularity compared to the right side. There is moderate-sized left-sided hydrocele. No varicocele. Overlying scrotal skin is normal in thickness. There is also a left inguinal hernia containing a loop of bowel. This loop of bowel contains vascularity/flow, but was not observed to have peristalsis during the examination. Doppler: Color and pulse Doppler demonstrate normal and symmetric arterial flow in both testicles. IMPRESSION: 1. Left epididymitis. 2. Left inguinal hernia containing a loop of bowel that although demonstrates vascular flow was not observed to demonstrate peristalsis. Recommend further evaluation with surgical consultation. 3. Heterogeneous right testicular echotexture likely sequela of prior orchitis. 4. No sonographic evidence for torsion of the bilateral testicle. Dictated by: Vladimir Baker M.D. on 10/16/2018 at 13:56 Approved by: Vladimir Baker M.D. on 10/16/2018 at 14:27
--- NOTE | 2018-10-16 09:55 | PC.NURSE ---
pt self cath, reports left lower abdominal bump worsen when sitting or standing, better when laying down. sxs for couple of weeks, worsen the last 2 days. denies fever,chills,nausea or vomiting. hx of afib on coumadin, anemia from gibleed, chf.
--- NOTE | 2018-10-16 09:56 | DI.RAD.S_ITS ---
PROCEDURE: XR ACUTE ABDOMEN SERIES INDICATIONS: chf recent worsening, left testicle/ig swelling ? hernia TECHNIQUE: One view chest and two views of the abdomen were acquired. COMPARISON: Chest radiograph dated 02/15/2018. FINDINGS: Surgical changes and devices: Status post left total hip arthroplasty. Additional surgical screws overlying the left acetabulum. Surgical suture line noted in the left lower abdomen. Chest: Lungs are clear. Heart size is normal. No pleural effusions. No pneumoperitoneum. Abdomen: Bowel gas pattern is normal. No suspicious calcifications. Visualized solid organ contours appear normal. Bones: No suspicious bony lesions. IMPRESSION: No acute radiographic abnormality is identified in the chest or abdomen. Dictated by: Vladimir Baker M.D. on 10/16/2018 at 11:37 Approved by: Vladimir Baker M.D. on 10/16/2018 at 11:39
[2018-10-16 10:14] VITALS: BP 184/61; PULSE 36; RESP 16; O2SAT 96
[2018-10-16 10:28] LABS: Add Manual Diff / Slide Review NO; Basophils Absolute Auto 100 /uL (0-100); Basophils Percent Auto 0.9 % (0-2); Eosinophils Absolute Auto 200 /uL (0-450); Eosinophils Percent Auto 2.4 % (2-4); Hematocrit 34.9 % (41-53); Hemoglobin 11.9 g/dL (13.5-17.5); Lymphocytes Absolute Auto 800 /uL (1100-4500); Mean Corpuscular Hemoglobin 30.7 PG (26-34); Mean Corpuscular Volume 90.2 fL (80-100); Monocytes Absolute Auto 1100 /uL (0-900); Monocytes Percent Auto 14.5 % (3-14); Neutrophils Absolute Auto 5300 /uL (1500-7000); Neutrophils Percent Auto 71.2 % (50-75); Platelet Count 227 X10^3/uL (150-400); Red Blood Cell Count 3.87 X10^6/uL (4.5-5.9); Red Cell Distribution Width 14.8 % (11.6-14.8); White Blood Cell Count 7.5 X10^3/uL (4.5-11.0)
[2018-10-16 10:41] LABS: INR 1.5 (0.9-1.3); Prothrombin Time 17.8 SECONDS (10.1-12.7)
[2018-10-16 10:45] LABS: Alanine Aminotransferase 21 IU/L (21-72); Albumin 3.5 g/dL (3.5-5.0); Albumin Globulin Ratio 1.3 (1.0-2.8); Alkaline Phosphatase 49 U/L (38-126); Aspartate Aminotransferase 13 IU/L (17-59); BUN Creatinine Ratio 25.7 (6-22); Bilirubin Total 0.5 mg/dL (0.2-1.3); Blood Urea Nitrogen 18 mg/dL (9-20); Carbon Dioxide 28 mmol/L (22-32); Chloride 106 mmol/L (98-107); Creatine Kinase 53 U/L (55-170); Estimated Glomerular Filt Rate > 60.0 mL/min (>60); Globulin 2.7 g/dL (1.7-4.1); Glucose 85 mg/dL (80-110); HEMOLYSIS < 15 (0-50); Potassium 3.2 mmol/L (3.4-5.1); Sodium 141 mmol/L (137-145); Total Protein 6.2 g/dL (6.3-8.2)
[2018-10-16 10:57] LABS: Troponin I 0.025 ng/mL (0.01-0.034)
[2018-10-16 11:00] VITALS: BP 188/78; PULSE 66; RESP 12; O2SAT 97
[2018-10-16 11:02] LABS: B Type Natriuretic Peptide 408 (<100)
--- NOTE | 2018-10-16 11:59 | PC.NURSE ---
Pt provided with self-benoit kit for urine. Pt reports due to urinary retention, pt self-cathes at home. Obtained cloudy, dark yellow/orange color odorous urine and sent out to lab.
[2018-10-16 12:13] LABS: Appearance Urine UA CLOUDY; Bilirubin Urine UA NEGATIVE (NEGATIVE); Color Urine UA YELLOW; Glucose Urine UA NEGATIVE (Negative); Ketones Urine UA NEGATIVE (NEGATIVE); Leukocyte Esterase Urine UA 3+ (NEGATIVE); Nitrite Urine UA POSITIVE (Negative); Occult Blood Urine UA 3+ (Negative); Protein Urine UA 1+ (Negative); Urobilinogen Urine UA 0.2 E.U./dL (0.2)
[2018-10-16 12:33] VITALS: BP 189/70; PULSE 67; RESP 14; O2SAT 97
[2018-10-16 12:43] LABS: Bacteria Urine Many (>30); Culture Indicated Urine Specimen Cultured; RBC Urine 30-100/HPF (0-5/HPF); Squamous Epithelial Cell Urine None Seen (0-5/HPF); WBC Urine 30-100/HPF (0-5/HPF)
[2018-10-16] MEDS: POTASSIUM CHLORIDE 20 MEQ/15 ML UDC 40 MEQ PO (12:43)
[2018-10-16] MEDS: ACETAMINOPHEN 325 MG TABLET 975 MG PO (12:43)
[2018-10-16 13:30] VITALS: BP 160/68; PULSE 67; RESP 13; O2SAT 95
[2018-10-16] MEDS: cefTRIAXone 250 MG in DEXTROSE 5 % IN WATER 50 ML 100 ML IV (15:23)
[2018-10-16 16:02] VITALS: BP 184/67; PULSE 71; RESP 18; O2SAT 95
== END 2018-10-16 15:28 | disposition home or self-care (01) ==
PROVIDERS: Emergency Provider Emergency Medicine; PCP Physician Assistant
DX: N45.1 Epididymitis (principal); I44.1 Atrioventricular block, second degree; K40.90 Unilateral inguinal hernia, without obstruction or gangrene, not specified as recurrent
CPT/HCPCS: 36591; 74022; 76870; 80053; 81001; 82550; 83880; 84484; 85025; 85610; 87077; 87086; 87186; 93005; 96365; 99284; 99285; J0696

== ENCOUNTER → 2018-10-27 10:01 | Outpatient (CLI) | payer MEDICARE, SELFPAY ==
[2018-10-27 11:00] LABS: BUN Creatinine Ratio 17.8 (6-22); Blood Urea Nitrogen 16 mg/dL (9-20); Calcium 9.5 mg/dL (8.4-10.2); Carbon Dioxide 29 mmol/L (22-32); Chloride 104 mmol/L (98-107); Estimated Glomerular Filt Rate > 60.0 mL/min (>60); Glucose 91 mg/dL (80-110); HEMOLYSIS < 15 (0-50); Potassium 3.6 mmol/L (3.4-5.1); Sodium 140 mmol/L (137-145)
== END ==
PROVIDERS: PCP Physician Assistant; Visit Provider Physician Assistant
DX: E87.6 Hypokalemia (principal); I10 Essential (primary) hypertension; I42.0 Dilated cardiomyopathy
CPT/HCPCS: 80048

== ENCOUNTER 2018-11-24 10:28 | Day surgery (SDC) | payer MEDICARE, MEDICAID, SELFPAY ==
[2018-11-18 14:13] VITALS: BMI 27.4
[2018-11-24] VITALS (15 sets, daily range): BP systolic 142–172; BP diastolic 40–76; PULSE 65–73; RESP 8–18; TEMP 36.8–37.3; O2SAT 94–98; BMI 27.6
[2018-11-24] MEDS: LACTATED RINGERS 1,000 ML 100 ML IV ×2 (11:39→15:20)
[2018-11-24] MEDS: CEFAZOLIN 2 GM/100 ML FROZ.PIGGY IV (13:50)
--- NOTE | 2018-11-24 14:26 | SUR.OPER ---
Supine on padded OR bed, head on pillow, arm padded and tucked at side, legs uncrossed, safety belt at thigh, tape over blanket over lower legs .
[2018-11-24] MEDS: BUPIVACAINE 0.25% W/ EPI 30 ML VIAL INJ (14:50)
[2018-11-24] MEDS: VANCOMYCIN 1,000 MG VIAL 1000 MG TOP (15:29)
[2018-11-24] MEDS: PHYTONADIONE IV (17:00)
[2018-11-24] MEDS: DEXTROSE 5% IV (17:00)
[2018-11-24] MEDS: WATER IV (17:00)
[2018-11-24] MEDS: HYDROMORPHONE 2 MG INJ 0.5 MG IV (17:30)
--- NOTE | 2018-11-24 17:31 | PM.OP.1 ---
Operative Date/Time/Diagnoses Date of procedure: 11/24/18 Time of procedure: 17:31 Pre-op diagnosis: recurrent L inguinal hernia Post-op diagnosis: other (recurrent L inguinal hernia - large direct defect ) Procedure & Clinicians Procedure: Left Laproscopic TEP inguinal hernia repair converted to open anterior [place] repair Same procedure as scheduled: Yes Indications: 68 yo man with history of a L inguinal hernia repaired several decades ago as a young adult. 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 he presented to clinic with a painful inguinal bulge on the left side diagnostic on clinical exam as well as recurrent left inguinal hernia. he desired repair Surgeon: Aniket Tiwari Click Yes if Unassisted: Yes Anesthesia Type: General Operative Notes Findings: Large left direct inguinal hernia, no indirect component. Converted to open due to perineal related to markedly adhesed parietal peritoneum to anterior abdominal wall Closure Type: primary Specimen(s): none sent Prosthetic devices, grafts, tissues, transplants, or devices: Heavy weight polypropylene mesh -superficial to conjoined tendon and deep to aponeurosis of external oblique Applied: catheter Estimated Blood Loss (mL): 20 Blood products transfused: none Procedure in detail: Patient was taken to the operating room. He is intubated by incident. A time-out was completed. He was prepped and draped in the usual sterile fashion. Small curvilinear incision was placed just to the left and inferior of the umbilicus this was carried through the skin and subcutaneous tissue until the anterior rectus sheath overlying the rectus abdominus on the left side was identified. This was scored with a scalpel and 2 snaps were placed on the inferior and superior edge of it. Using S retractors the underlying rectus muscle was swept laterally exposing the retro rectus space a finger was inserted into this without much difficulty. However advancing inferiorly with the finger within the retro rectus placed significant resistance was encountered. This felt to be due to multiple adhesions in the area. Ongoing careful finger dissection was able to open up this plane somewhat to the length of the index finger. A space maker was then inserted into the space and advanced to the pubic synphisis. The space maker was then slowly insufflated - unfortunatley to visualize the inside of the transparent inflation bag required a 10mm scope which was not present. As a consequence the bag was slowly inflated without direct visualization. The bag was removed and the lap scope was introduced into the newly created space. There was a significant rent along the midline at the site of the patient's previous laparotomy incision. Two 5 mm ports were then placed in the midline the most inferior approximately it good distance between the pubic symphysis and the umbilicus and the 2nd 2 finger breaths above this. Using these sites 2 graspers were introduced into the preperitoneal space and a concerted attempt was made to free up the more lateral aspect of the preperitoneal space. It was felt that if this could be mobilized to could be clipped to the rent. After some a time I am attempting to open up the preperitoneal space this was abandoned was quite adherent. Perhaps given the previous significant inflammation of the sigmoid colon in that area. There is a moderate amount of ooze coming down from the rectus sheath. This was watched dull to be quite slow. At the conclusion of the laparoscopic attempt there was no further pooling. Given the inability to insufflate the preperitoneal space her to open it significantly laparoscopically the options to proceed without open preperitoneal repair versus a revision anterior repair were considered. The decision was made to go forward with an anterior repair. The ports were withdrawn. The umbilical port was left in place until the conclusion of the case. Two finger breaths above the inguinal ligament in oblique incision was made approximately 5 cm in length. This was carried through the skin subcutaneous tissue and Karolina's fashion to the aponeurosis of the external oblique was identified. The aponeurosis was followed mobilizing the adherent subcutaneous tissue until the anatomic landmarks to be identified. The external ring was found and the fibers overlying the inguinal canal were exposed, as was of the pubic tubercle. A few mL of local anesthetic were infiltrated into the inguinal canal to hydro dissect off the aponeurosis of the external oblique. These oblique fibers were the necked with a scalpel. A Metzenbaum was bluntly inserted into the inguinal canal the fibers from the underlying cord structures. Then the aponeurosis of the external oblique was opened for the full length of the inguinal canal 2 clamps were placed on the superior and inferior cut edges. Await [place] retractor was placed. The cord structures were then swept off of the inguinal floor and a Deisy drain was used to loop them. A large indirect hernia sac/blown out inguinal floor was identified. The cord structures were bluntly from each other to inspect for an indirect hernia, none were identified, no herniated preperitoneal fat or cord lipomas were identified in this area. There was dark fluid within the sac of the direct hernia and so was opened to further confirm hemostasis. A Ray-Gladis was inserted into the abdomen removed and then a 2nd Ray-Gladis was placed back into the abdomen and left for several minutes to quantify the amount of blood. There is very little blood in the 2nd Ray-Gladis. As a consequence the incision the hernia sac was closed using 2 0 Vicryl suture. The inguinal floor was then repaired using 2 0 Vicryl bringing together the conjoin tendon towards the shelving edge. Thus reducing the hernia contents. Then proceeded to to free up the space between the conjoint tendon and the aponeurosis of the external oblique laterally this is typically quite easy but due to the scarring of the previous repair which appeared to be without mesh these planes were somewhat obliterated. Sharply they were carefully opened. The shelving edge was similarly off of the conjoin tendon. At this point a regular weight polypropylene mesh was fashioned to fit the underlying anatomy. The medial aspect of the mesh was tacked with 2 interrupted sutures to the pubic tubercle there was well over 1 cm overlapping mesh medial to this. The inferior edge of the mesh was then sutured to the shelving edge usual rising ache in simple continuous 2 0 Prolene. This was carried well lateral of the internal ring. The mesh tails were fashioned and placed out laterally. The cord structures were encircled utilizing a 0 Prolene suture to create a new internal ring from the mesh. This was not but not unduly tight around the cord structures. A total of 3 interrupted sutures were then placed on the superior aspect of mesh and the conjoint tendon -this was done using 0 PDS with nonsnung/air knots. The mesh was felt to be well placed without significant wrinkling. The area was irrigated in of dilute vancomycin solution. Small bleeder laterally were was cauterized The aponeurosis of the external oblique was then closed using 2 0 Vicryl in a simple interrupted fashion re-establishing the external ring. Karolina's fascia was then closed with interrupted sutures and skin was closed using combination of deep dermal and monofilament absorbable suture in a subcuticular fashion. The umbilical port was removed. 0 Vicryl was used to close the incision on the anterior rectus sheath. Skin was closed using monofilament absorbable suture in subcuticular fashion at each of the port site Dressings were applied the patient was extubated and brought to PACU without incident Complications: none Condition: stable Disposition: PACU Plan for aftercare: To floor overnight given poor home support
[2018-11-24] MEDS: SODIUM CHLORIDE 0.9% 1,000 ML 75 ML IV (18:27)
--- NOTE | 2018-11-24 18:38 | PC.NURSE ---
Lida shift note: Patient admitted to room 217 from PACU S/P open inguinal hernia repair. Awake, alert, and pleasant. 4 x 4 gauze dressing x 4 to mid and left lower abdomen, CDI. No c/o nausea or pain on arrival. Oriented to room, environment, and plan of care. Call light within reach.
[2018-11-24] MEDS: HYDROMORPHONE 0.5 MG INJ IV (19:06)
[2018-11-24] MEDS: GABAPENTIN 600 MG TABLET PO (21:04)
[2018-11-24] MEDS: ATORVASTATIN 20 MG TABLET PO (21:04)
[2018-11-24] MEDS: CARVEDILOL 12.5 MG TABLET PO (21:04)
[2018-11-24] MEDS: POLYETHYLENE GLYCOL 3350 17 GM POWD.PACK PO (21:05)
[2018-11-24] MEDS: OXYCODONE IR 5 MG TABLET 10 MG PO (21:44)
[2018-11-25] VITALS (8 sets, daily range): BP systolic 128–160; BP diastolic 59–67; PULSE 62–70; RESP 16–18; TEMP 36.4–37.1; O2SAT 92–97
[2018-11-25] MEDS: ACETAMINOPHEN 325 MG TABLET 975 MG PO ×2 (00:06→08:19)
[2018-11-25] MEDS: OXYCODONE IR 5 MG TABLET PO (05:20)
[2018-11-25 05:29] LABS: Hematocrit 37.8 % (41-53)
--- NOTE | 2018-11-25 05:58 | PC.NURSE ---
5551 Pt. requested to keep Garcia catheter @ this time. States We'll take it out after I take my Flomax. Declined Tylenol @ this time, medicated with 5 mg. of Percolone @9620. Denies nausea & not passing flatus, will cont. POC & monitor.
[2018-11-25] MEDS: PANTOPRAZOLE 40 MG PACKET PO (06:24)
[2018-11-25] MEDS: SODIUM CHLORIDE 0.9% 1,000 ML 75 ML IV (08:16)
[2018-11-25] MEDS: CARVEDILOL 12.5 MG TABLET PO (08:20)
[2018-11-25] MEDS: TAMSULOSIN 0.4 MG CAPSULE PO (08:20)
[2018-11-25] MEDS: LOSARTAN 25 MG TABLET 12.5 MG PO (08:20)
[2018-11-25] MEDS: SPIRONOLACTONE 25 MG TABLET PO (08:20)
[2018-11-25] MEDS: POLYETHYLENE GLYCOL 3350 17 GM POWD.PACK PO (08:23)
--- NOTE | 2018-11-25 12:10 | PM.DS.1 ---
History of Present Illness Date Patient Seen: 11/25/18 Time Patient Seen: 12:11 Chief complaint: [id number] Narrative: admitted after repair of recurrent left inguinal hernia. Did well overnight Discharge Providers Date of admission: 11/24/18 18:41 Discharge Date: 11/25/18 Primary care physician: La Zhou PA-C Consults: 11/18/18 15:14 Consult to Anesthesiology Routine Comment: Consulting Provider: Anesthesiologist Reason for consultation: PAC Courtesy re: Comorbidities 11/24/18 18:51 Consult to Pastoral Services Routine Comment: would like a visit Discharge provider: Aniket Tiwari Summary Discharge Diagnosis: 1 recurrent inguinal hernia 2 blood loss anemia Hospital Course: 68 yo man admitted overnight after difficult hernia repair of Left groin - poor family support. He did well overnight and eager for discharge this am. good pain control Status at Discharge Cognitive/behavioral status at discharge: oriented Functional status at discharge: uses cane/walker Overall status at discharge: patient is progressing back to baseline Time Spent with Patient Less than 30 minutes Exam Vital Signs (past 8 hours): - 11/25/18 05:11 11/25/18 07:00 11/25/18 07:55 Temperature 98.7 F 97.9 F Pulse Rate 62 64 Respiratory Rate 16 18 Blood Pressure 160/63 H 150/67 H Pulse Oximetry 96 92 97 11/25/18 10:08 11/25/18 10:09 11/25/18 11:05 Temperature 98.2 F Pulse Rate 63 Respiratory Rate 18 Blood Pressure 128/59 L Pulse Oximetry 95 96 96 Oxygen Delivery Method Room Air Oxygen Flow Rate 0 Narrative Exam Narrative: well appearing breathing comfortably on RA Irregular HR Abd soft, minimally tender, dressings clean dry and intact periphery warm Objective Labs Result Diagrams: 11/25/18 05:16 Labs: Laboratory Results - last 24 hr 11/25/18 05:16 Hct 37.8 L Discharge Plan Discharge Plan Patient Disposition: Home Discharge comment: OK to remove dressings and shower tomorrow evening 11/26/18. Restart your warfarin blood thinner in 2 days Discharge Med Rec/Prescriptions Prescriptions: New acetaminophen 500 mg capsule 1,000 mg PO Q6H Qty: 35 RF: 0 oxycodone 5 mg tablet See Rx Instructions .ROUTE .COMPLEX PRN (Reason: pain) Qty: 10 RF: 0 polyethylene glycol 3350 [Miralax] 17 gram/dose powder 17 gram PO DAILY Qty: 119 RF: 0 Continued Disabled Parking Placard Qty: 1 RF: 0 Shingrix (PF) 50 mcg/0.5 mL suspension for reconstitution 50 mcg IM ONCE Qty: 1 RF: 1 cholecalciferol (vitamin D3) [Vitamin D3] 2,000 unit capsule 4,000 unit PO QDAY Qty: 0 RF: 0 ferrous sulfate 325 mg (65 mg iron) tablet 325 mg PO 3XW RF: 0 tamsulosin [Flomax] 0.4 mg capsule 0.4 mg PO QDAY Qty: 90 RF: 3 furosemide 20 mg tablet 20 mg PO DAILY RF: 0 carvedilol 12.5 mg tablet 12.5 mg PO BID RF: 0 spironolactone 25 mg tablet 12.5 mg PO .QDAY Qty: 30 RF: 1 losartan 25 mg Tablet 25 mg PO BID RF: 0 atorvastatin [Lipitor] 20 mg tablet 20 mg PO BEDTIME RF: 0 omeprazole 20 mg capsule,delayed release(DR/EC) 40 mg PO BID RF: 0 amlodipine 5 mg tablet 5 mg PO DAILY Qty: 20 RF: 0 Discontinued warfarin 3 mg tablet 3 mg PO DAILY Qty: 30 RF: 2 Follow up/Referrals: La Zhou PA-C [Primary Care Provider] - Provider Discharge Instructions Diet: Diet as Tolerated Activity: No lifting over 15lbs for 6 weeks. OK to do usual things. Shower in 2 days, OK to take bath in 2 weeks Visit Report/Discharge Packet Instructions: DI for Hernia Repair, DI for Laparoscopy, [facility]: Wound Care Discharge Data Primary Care Provider: La Zhou Attending Provider: Aniket Tiwari Admit Date/Time: 11/24/18 18:41 Quality VTE Deep Vein Thrombosis/Pulmonary Embolism Present on Admission: No
--- NOTE | 2018-11-25 14:22 | CM.IDA ---
Initial DCP Assessment Note: Pt is a 68 yo male, resident of [place], here for a hernia repair by Dr Tiwari, status is [facility]. PCP: La Zhou Payer: [facility] DC order is in place today, pt has been cleared for return home by the general surgery team w/close outpt f/u. Met w/pt and his sister Deyanira, explained role. Pt is concerned about the two stairs he needs to climb to get into his apt. Pt will have assist from his sister and another friend to get back into his apt. One inside, pt feels he has what he needs, sister will assist w/groceries and pt already has meals on wheels (although the diet needs to be updated). Pt asks about using BLS to get him back into his apt ? This GUIDEMAN explains pt would need to meet specific criteria to include medical necessity for his insurance to cover an ambulance ride and he does not meet criteria today. P: DC home w/family to assist via pov and close outpt f/u. CARMINE Saldaña
== END 2018-11-25 14:50 | disposition home or self-care (01) ==
LOC: OR 18:38 → AC 11-25 07:04
PROVIDERS: PCP Physician Assistant; Visit Provider Surgery
PROC: (CPT 49520; principal; 2018-11-24 11:45)
DX: K40.91 Unilateral inguinal hernia, without obstruction or gangrene, recurrent (principal)
CPT/HCPCS: 49520; 36415; 85014; 94762; C1781; J0690; J1100; J1170; J2250; J2405; J2704; J3010; J3430

== ENCOUNTER → 2018-12-17 09:26 | Outpatient (CLI) | payer MEDICARE, SELFPAY ==
[2018-11-24 19:07] VITALS: BMI 27.6
[2018-12-17 10:27] LABS: INR 1.5 (0.9-1.3); Prothrombin Time 17.9 SECONDS (10.1-12.7)
[2018-12-17 10:36] LABS: HEMOLYSIS < 15 (0-50); Iron 197 ug/dL (49-181)
[2018-12-17 10:40] LABS: Alanine Aminotransferase 12 IU/L (21-72); Albumin Globulin Ratio 1.4 (1.0-2.8); Alkaline Phosphatase 62 U/L (38-126); Aspartate Aminotransferase 14 IU/L (17-59); BUN Creatinine Ratio 17.5 (6-22); Blood Urea Nitrogen 14 mg/dL (9-20); Calcium 9.9 mg/dL (8.4-10.2); Carbon Dioxide 27 mmol/L (22-32); Chloride 107 mmol/L (98-107); Cholesterol 119 mg/dL (140-199); Estimated Glomerular Filt Rate > 60.0 mL/min (>60); Globulin 2.8 g/dL (1.7-4.1); Glucose 88 mg/dL (80-110); HDL Cholesterol 56 mg/dL (40-60); HEMOLYSIS < 15 (0-50); LDL Cholesterol Calculated 47 mg/dL (<100); Potassium 4.1 mmol/L (3.4-5.1); Sodium 142 mmol/L (137-145); Total Protein 6.8 g/dL (6.3-8.2); Triglycerides 81 mg/dL (35-150)
[2018-12-17 10:46] LABS: Percent Iron Saturation 58 % (20-50); Total Iron Binding Capacity 340 ug/dL (261-462); Transferrin 258 mg/dL (206-381)
[2018-12-17 10:53] LABS: Vitamin D 25 Hydroxy (D3) 41.8 ng/mL (30.0-100.0)
== END ==
PROVIDERS: Nurse Practitioner; PCP Physician Assistant; Visit Provider Physician Assistant
DX: I48.91 Unspecified atrial fibrillation (principal); E55.9 Vitamin D deficiency, unspecified; E78.5 Hyperlipidemia, unspecified; I10 Essential (primary) hypertension; Z79.01 Long term (current) use of anticoagulants; Z86.2 Personal history of diseases of the blood and blood-forming organs and certain disorders involving the immune mechanism
CPT/HCPCS: 36415; 80053; 80061; 82306; 83540; 83550; 85610

== ENCOUNTER → 2018-12-22 08:56 | Outpatient (CLI) | payer MEDICARE, SELFPAY ==
[2018-11-24 19:07] VITALS: BMI 27.6
[2018-12-22 09:51] LABS: Microalbumin Urine Random 6.9 mg/dL (0-1.6)
[2018-12-22 09:53] LABS: Creatinine Urine Random 54.6 mg/dL; Microalbumi Creatinin Ratio Ur 126.3 ug/mg CR (<30)
== END ==
PROVIDERS: PCP Physician Assistant; Visit Provider Physician Assistant
DX: E55.9 Vitamin D deficiency, unspecified (principal); E78.5 Hyperlipidemia, unspecified; I10 Essential (primary) hypertension; Z86.2 Personal history of diseases of the blood and blood-forming organs and certain disorders involving the immune mechanism
CPT/HCPCS: 82043; 82570

== ENCOUNTER → 2019-02-02 09:56 | Outpatient (CLI) | payer MEDICARE, SELFPAY ==
[2019-01-31 14:51] VITALS: BMI 27.6
[2019-02-02 10:38] LABS: Add Manual Diff / Slide Review NO; Basophils Absolute Auto 100 /uL (0-100); Basophils Percent Auto 0.9 % (0-2); Eosinophils Absolute Auto 200 /uL (0-450); Eosinophils Percent Auto 2.5 % (2-4); Hematocrit 38.6 % (41-53); Hemoglobin 13.4 g/dL (13.5-17.5); Lymphocytes Absolute Auto 900 /uL (1100-4500); Mean Corpuscular HGB Conc 34.7 % (30-36); Mean Corpuscular Hemoglobin 31.9 PG (26-34); Mean Corpuscular Volume 91.9 fL (80-100); Monocytes Absolute Auto 600 /uL (0-900); Monocytes Percent Auto 6.7 % (3-14); Neutrophils Absolute Auto 6500 /uL (1500-7000); Neutrophils Percent Auto 78.9 % (50-75); Platelet Count 225 X10^3/uL (150-400); Red Cell Distribution Width 15.1 % (11.6-14.8); White Blood Cell Count 8.3 X10^3/uL (4.5-11.0)
[2019-02-02 11:00] LABS: Iron 94 ug/dL (49-181)
[2019-02-02 11:03] LABS: BUN Creatinine Ratio 24.3 (6-22); Blood Urea Nitrogen 17 mg/dL (9-20); Estimated Glomerular Filt Rate > 60.0 mL/min (>60)
== END ==
PROVIDERS: Family Provider Physician Assistant; PCP Physician Assistant; Visit Provider Physician Assistant
DX: R33.9 Retention of urine, unspecified (principal); N31.9 Neuromuscular dysfunction of bladder, unspecified; D50.8 Other iron deficiency anemias
CPT/HCPCS: 36415; 82565; 83540; 84520; 85025

== ENCOUNTER → 2019-02-03 13:06 | Outpatient (CLI) | payer MEDICARE, MEDICAID, SELFPAY ==
[2018-11-24 19:07] VITALS: BMI 27.6
[2019-01-31 14:51] VITALS: BMI 27.6
--- NOTE | 2019-02-03 | DI.CT.S_ITS ---
PROCEDURE: CT ABDOMEN PELVIS WO/W CON INDICATIONS: UVJ obstruction TECHNIQUE: Optional 5 mm thick noncontrast images acquired from the diaphragm to the symphysis pubis. After the administration of intravenous contrast, 5 mm thick images acquired from the diaphragm to the symphysis pubis after a 10-minute delay. 2 mm thick coronal and sagittal reformats were then performed of the kidneys and ureters. For radiation dose reduction, the following was used: automated exposure control, adjustment of mA and/or kV according to patient size. Metal beam hardening reduction technique was also used. COMPARISON: Abdominal radiographs 10/16/[address] abdomen pelvis 01/24/2018. FINDINGS: Image quality: Excellent. Lung bases: Small persistent bilateral pleural effusions. Small persistent pericardial effusion. Left ventricle hypertrophy. Trace fluid in the distal esophagus. Urinary system: Left kidney: There are a few dilated upper pole calyces which opacify with contrast. There is a large cystic structure in the left pelvic hilum which does not opacify with contrast. This measures approximately 7.3 x 5.2 cm, (), previously 6.2 x 5.7 cm on 01/02/2015 and a 3.7 x 3.3 cm on 02/02/2007. Small additional peripelvic cyst. Multiple areas of cortical thinning in the left kidney. The renal pelvis is patulous. No hydroureter. Several cortical hypodensities which are too small to further characterize. No enhancing lesions seen. Right kidney: Symmetric enhancement. No hydronephrosis. No solid renal mass. Several subcentimeter cortical hypodensities which are too small to further characterize. Similar small peripelvic cysts. Ureters: No hydroureter. No filling defects identified within the opacified portions of the ureters. Bladder: Bladder is only partially distended limiting evaluation. There is questionable thickening along the left bladder base. There is a small focus of gas in the nondependent bladder presumably due to to recent or catheterization. Postsurgical changes in the suprapubic soft tissues. No bladder stone. Other solid organs: Liver is normal in size and enhancement. Gallbladder is unremarkable. Biliary system is non dilated. Pancreas enhances normally. Spleen is normal in size and enhancement. No adrenal nodules. Peritoneum and bowel: Increased stool in the colon. Bowel loops demonstrate normal wall thickness and caliber. No free fluid or air. Nodes and vessels: No retroperitoneal or mesenteric adenopathy by size criteria. IVC is prominent in size. There is mild scattered calcified atherosclerotic plaque. No AAA. Abdominal wall: Asymmetric left abdominal rectus musculature with possible intramuscular lipoma and subcutaneous tissues presumably postsurgical in nature. Mild anasarca most pronounced in the flank and buttocks. Pelvis: No pathologic free pelvic fluid. Prostatomegaly. Thickening along the left inguinal canal presumably due to prior hernia repair. Bones: No suspicious bony lesions. Left hip total arthroplasty. No vertebral body compression fractures. Extensive lumbar degenerative change. IMPRESSION: 1. Enlarging cystic structure in the left renal hilum which does not opacify with excreted contrast. This is favored to represent a large peripelvic cyst rather than a dilated collecting system due to UPJ obstruction. There is mass effect on the upper pole calyces and renal pelvis which are mildly dilated. There is also mild cortical thinning cyst and scarring. 2. No enhancing solid renal mass. No filling defect in the opacified portions of the ureters. 3. Persistent small bilateral pleural and pericardial effusions. Left ventricular hypertrophy. 4. Increased stool in the colon. Dictated by: Oskar Norton M.D. on 02/03/2019 at 14:20 Approved by: Oskar Norton M.D. on 02/03/2019 at 14:49
== END ==
PROVIDERS: Family Provider Physician Assistant; PCP Physician Assistant; Visit Provider Physician Assistant
DX: N13.30 Unspecified hydronephrosis (principal); I31.3 Pericardial effusion (noninflammatory); J90 Pleural effusion, not elsewhere classified; I51.7 Cardiomegaly; N13.5 Crossing vessel and stricture of ureter without hydronephrosis
CPT/HCPCS: 74178; Q9967

== ENCOUNTER 2019-02-23 09:24 | Inpatient (IN) | payer MEDICARE, MEDICAID, SELFPAY ==
[2019-01-31 14:51] VITALS: BMI 27.6
[2019-02-23] VITALS (33 sets, daily range): BP systolic 90–160; BP diastolic 42–93; PULSE 70–145; RESP 12–20; TEMP 36.2–37.7; O2SAT 93–98; BMI 25.4; BMI 25.3
--- NOTE | 2019-02-23 09:43 | DI.RAD.S_ITS ---
PROCEDURE: XR CHEST 1V INDICATIONS: chest pain TECHNIQUE: One view of the chest was acquired. COMPARISON: [facility], CR, XR CHEST 1V, 02/15/2018, 12:52. FINDINGS: Surgical changes and devices: None. Lungs and pleura: Lungs are clear. No pleural effusions or pneumothorax. Mediastinum: Mediastinal contours appear normal. Heart size is normal. Bones and chest wall: No suspicious bony lesions. Overlying soft tissues appear unremarkable. IMPRESSION: No acute cardiopulmonary disease process. Dictated by: Aye Arita MD, PhD on 02/23/2019 at 10:28 Approved by: Aye Arita MD, PhD on 02/23/2019 at 10:29
[2019-02-23 09:58] LABS: Prothrombin Time 35.1 SECONDS (10.1-12.7)
[2019-02-23 10:00] LABS: PTT Partial Thromboplastin Tim 46 SECONDS (26.4-36.2)
--- NOTE | 2019-02-23 10:00 | ED.ARRPALP ---
HPI - Arrhythmia/Palpitations General Chief Complaint: Arrhythmia/Palpitations Stated Complaint: 'my heart' Time Seen by Provider: 02/23/19 09:50 Source: patient Mode of arrival: ambulatory Limitations: no limitations History of Present Illness HPI narrative: This is a 68-year-old male who comes to the emergency department on foot but sent by Dr. Del Rio. Patient had when he noticed was a fast heart rate. Which he noticed was that his pulse was sort of bounding in his wrist as well as his belly. He denies any shortness of breath, no chest pain or pressure, no nausea no vomiting no diaphoresis. No lightheadedness or presyncope. He states if he walks a very long distance sometimes he feels lightheaded. He has a history of atrial fibrillation with a cardioversion body year year and a half ago. This was with Dr. Del Rio. Patient has never had a catheterization or stents placed. He has a history of hypertension, he is on warfarin. His most recent INR was 2.2 but the preceding week was 1.7. He did have a hernia repair 12 weeks ago but states that it has been healing well and he has not had any issues with bowel movements or urination. Patient states it seems to be healing well. He denies any swelling his lower extremities. Related Data Home Medications Medication Instructions Recorded Confirmed omeprazole 20 mg PO BID 10/06/18 02/23/19 cholecalciferol (vitamin D3) 2,000 4,000 unit PO DAILY #0 cap 10/12/18 02/23/19 unit capsule carvedilol 12.5 mg tablet 12.5 mg PO BEDTIME tab 12/21/18 02/23/19 ferrous sulfate 325 mg (65 mg 325 mg PO MOTUWETHFR tab 12/21/18 02/23/19 iron) tablet losartan 25 mg tablet 25 mg PO BID tab 02/03/19 02/23/19 acetaminophen 1,000 mg PO Q6H PRN 02/23/19 02/23/19 spironolactone 12.5 mg PO DAILY 02/23/19 02/23/19 tamsulosin [Flomax] 0.4 mg PO DAILY 02/23/19 02/23/19 warfarin 3 mg PO SUTUWETHSA 02/23/19 02/23/19 warfarin 6 mg PO MOFR 02/23/19 02/23/19 Previous Rx's Medication Instructions Recorded Disabled Parking Placard #1 ea 09/08/18 varicella-zoster [id number] (PF) 50 50 mcg IM ONCE #1 each 10/12/18 mcg/0.5 mL IM susp, kit polyethylene glycol 3350 [Miralax] 17 gram PO DAILY #119 gram 11/25/18 furosemide 20 mg tablet 20 mg PO DAILY #90 tab 02/02/19 atorvastatin 20 mg tablet 20 mg PO BEDTIME #90 tab 02/21/19 Allergies Allergy/AdvReac Type Severity Reaction Status Date / Time ciprofloxacin Allergy Severe BREATHING Verified 02/23/19 09:40 PROBLEMS, CHILLS, SHAKES alendronate sodium AdvReac Severe GI bleed Verified 02/23/19 09:40 [ALENDRONATE SODIUM] cephalexin AdvReac Mild Headache Verified 02/23/19 09:40 morphine AdvReac Mild ABD PAIN Verified 02/23/19 09:40 Review of Systems Review of Systems ROS Unobtainable: All systems reviewed & are unremarkable except as noted in HPI and below Cardiovascular Cardiovascular: Reports rapid heart rate [facility] Medical History Anemia (Chronic Unknown) Atrial fibrillation (Chronic 06/2017) Cardiomyopathy (Chronic 06/2017) CHF (congestive heart failure) (Chronic ~06/2017) Duodenal ulcer (Resolved Unknown) Encephalopathy (Resolved Unknown) Gastric ulcer (Resolved Unknown) Gastritis (Resolved Unknown) Hyperlipemia (Chronic Unknown) Hypertension (Chronic Unknown) Neurogenic bladder (Chronic Unknown) Neuropathy (Chronic Unknown) Osteoarthritis (Chronic Unknown) Osteopenia (Chronic 03/2016) Peptic ulcer (Resolved Unknown) Pyelonephritis (Acute ~2011) Sepsis (Acute) Surgical History History of bilateral knee replacement (Resolved Unknown) History of colon resection (Resolved) History of left hip replacement (Resolved Unknown) Hx of shoulder surgery (Resolved Unknown) Family History Mother Cancer Social History household members: none Smoking Status: Former smoker second hand exposure: No alcohol intake: never substance use type: does not use Family History Mother Cancer Social History household members: none Smoking Status: Former smoker second hand exposure: No alcohol intake: never substance use type: does not use Exam Narrative Exam Narrative: GENERAL: Alert and oriented x three, mildly pale male in no acute distress. HEENT: Head normocephalic, atraumatic, EOMI, pupils reactive, face symmetric, moist mucous membranes NECK: Supple, full range of motion CARDIOVASCULAR: Tachycardic but regular rhythm without murmurs, rubs or gallops. No JVD. No swelling in lower extremities. RESPIRATORY: Breath sounds equal bilaterally, no wheezes rales or rhonchi. No crackles wheezes or rales. ABDOMEN: Soft, nontender. Normoactive bowel sounds all 4 quadrants. No guarding or rebound, rigidity, no mass : No CVA tenderness EXTREMITIES: Normal range of motion, no clubbing or edema. Neurovascularly intact NEUROLOGICAL: Cranial nerves II through XII grossly intact. Moving all extremities SKIN: Warm, dry, no petechiae, no rashes or lesions. Initial Vital Signs Initial Vital Signs: Vital Signs Temperature 97.8 F 02/23/19 09:26 Pulse Rate 145 H 02/23/19 09:26 Respiratory Rate 14 02/23/19 09:26 Blood Pressure 132/88 02/23/19 09:26 Pulse Oximetry 96 02/23/19 09:26 Course Orders Ordered: ED Orders 02/23/19 11:50 Trop I [Troponin I] Stat Acetaminophen (Tylenol) 650 mg PO Q6HR PRN PRN Reason: As Needed for Fever/Mild Pain Atorvastatin Calcium (Lipitor) 20 mg PO BEDTIME RICARDO Ferrous Sulfate (Ferrous Sulfate) 325 mg PO MoTuWeThFr@0900 RICARDO Amiodarone HCl/Dextrose (Nexterone) 360 mg in 200 mls @ 33.333 mls/hr IV NOW ONE; Protocol Stop: 02/23/19 20:08 Last Titration: 02/23/19 14:54 Dose: 33.33 mls/hr, 33.333 mls/hr Documented by: Admin: 02/23/19 14:32 Dose: 33.33 mls/hr, 33.333 mls/hr Documented by: JUANPABLO Amiodarone HCl/Dextrose (Nexterone) 541 mg in 300.56 mls @ 16.7 mls/hr IV CONT RICARDO; Protocol Stop: 03/26/19 14:09 DILTIAZEM (Diltiazem 125 Mg/125 Ml-D5w) 125 mg in 125 mls @ 5 mls/hr IV TITRATE RICARDO; Protocol Last Titration: 02/23/19 18:50 Dose: 15 mg/hr, 15 mls/hr Documented by: Titration: 02/23/19 17:31 Dose: 10 mg/hr, 10 mls/hr Documented by: Admin: 02/23/19 17:14 Dose: 5 mg/hr, 5 mls/hr Documented by: MAYA Losartan Potassium (Cozaar) 25 mg PO BID RICARDO Pantoprazole Sodium (Protonix) 20 mg PO 0600,2100 RICARDO Spironolactone (Aldactone) 12.5 mg PO DAILY RICARDO Tamsulosin HCl (Flomax) 0.4 mg PO DAILY RICARDO Vitamin D (Vitamin D3) 4,000 unit PO DAILY RICARDO Warfarin Sodium (Coumadin) 6 mg PO MoFr@1700 RICARDO Warfarin Sodium (Coumadin) 3 mg PO SuTuWeThSa@1700 RICARDO Last Admin: 02/23/19 17:39 Dose: 3 mg Documented by: MAYA Discontinued Medications Sodium Chloride (Normal Saline 0.9%) 1,000 mls @ 1,000 mls/hr IV BOLUS ONE Stop: 02/23/19 10:59 Last Infusion: 02/23/19 11:22 Dose: 0 mls/hr Documented by: Admin: 02/23/19 10:18 Dose: 1,000 mls/hr Documented by: RADHA Amiodarone HCl/Dextrose (Nexterone) 150 mg in 100 mls @ 600 mls/hr IV NOW ONE; Protocol Stop: 02/23/19 12:23 Last Infusion: 02/23/19 13:04 Dose: 0 mls/hr Documented by: Admin: 02/23/19 12:44 Dose: 300 mls/hr Documented by: JUANPABLO Metoprolol Tartrate (Lopressor) 5 mg IV NOW ONE Stop: 02/23/19 10:00 Last Admin: 02/23/19 10:18 Dose: 5 mg Documented by: RADHA Metoprolol Tartrate (Lopressor) 5 mg IV Q5M [facility] Stop: 02/23/19 12:26 Last Admin: 02/23/19 12:44 Dose: Not Given Documented by: Admin: 02/23/19 12:34 Dose: 5 mg Documented by: Admin: 02/23/19 12:29 Dose: 5 mg Documented by: JUANPABLO Vital Signs Vital signs: Vital Signs - 8 hr 02/23/19 12:00 02/23/19 12:30 02/23/19 12:42 Pulse Rate 140 H 140 H 130 H Respiratory Rate 20 19 20 Blood Pressure [Right Arm] 116/79 114/80 122/83 Pulse Oximetry 96 96 95 02/23/19 13:06 02/23/19 13:28 Pulse Rate 127 H 130 H Respiratory Rate 12 19 Blood Pressure [Right Arm] 99/71 104/74 Pulse Oximetry 94 95 MDM - Arrhythmia/Palpitations Lab Data Attestation: I reviewed the patient's lab results. Result diagrams: 02/23/19 09:32 02/23/19 09:32 Labs: Lab Results 02/23/19 02/23/19 02/23/19 Range/Units 09:32 09:32 09:32 WBC 7.6 (4.5-11.0) X10^3/uL RBC 4.77 (4.5-5.9) X10^6/uL Hgb 15.2 (13.5-17.5) g/dL Hct 44.8 (41-53) % MCV 94.0 (80-100) fL MCH 31.8 (26-34) PG MCHC 33.8 (30-36) % RDW 15.1 H (11.6-14.8) % Plt Count 265 (150-400) X10^3/uL Neut % (Auto) 71.5 (50-75) % Lymph % (Auto) 17.9 L (25-40) % Dixie % (Auto) 7.0 (3-14) % Eos % (Auto) 2.1 (2-4) % Baso % (Auto) 1.5 (0-2) % Neut # (Auto) 5400 (3935-0493) /uL Lymph # (Auto) 1400 (0598-9908) /uL Dixie # (Auto) 500 (0-900) /uL Eos # (Auto) 200 (0-450) /uL Baso # (Auto) 100 (0-100) /uL PT 35.1 H (10.1-12.7) SECONDS INR 3.0 H (0.9-1.3) APTT 46 H D (26.4-36.2) SECONDS Sodium 140 (137-145) mmol/L Potassium 4.2 (3.4-5.1) mmol/L Chloride 106 (98-107) mmol/L Carbon Dioxide 23 (22-32) mmol/L BUN 22 H (9-20) mg/dL Creatinine 1.10 (0.66-1.25) mg/dL Estimated GFR > 60.0 (>60) mL/min BUN/Creatinine Ratio 20.0 (6-22) Glucose 102 (80-110) mg/dL Calcium 10.1 (8.4-10.2) mg/dL Total Bilirubin 0.9 (0.2-1.3) mg/dL AST 17 (17-59) IU/L ALT 19 L (21-72) IU/L Alkaline Phosphatase 52 (38-126) U/L Total Creatine Kinase 98 (55-170) U/L CK-MB (CK-2) TNP CK-MB (CK-2) Rel Index TNP Troponin I 0.079 H (0.01-0.034) ng/mL Total Protein 7.0 (6.3-8.2) g/dL Albumin 4.1 (3.5-5.0) g/dL Globulin 2.9 (1.7-4.1) g/dL Albumin/Globulin Ratio 1.4 (1.0-2.8) Lipase 61 (23-300) U/L 02/23/19 Range/Units 11:50 WBC (4.5-11.0) X10^3/uL RBC (4.5-5.9) X10^6/uL Hgb (13.5-17.5) g/dL Hct (41-53) % MCV (80-100) fL MCH (26-34) PG MCHC (30-36) % RDW (11.6-14.8) % Plt Count (150-400) X10^3/uL Neut % (Auto) (50-75) % Lymph % (Auto) (25-40) % Dixie % (Auto) (3-14) % Eos % (Auto) (2-4) % Baso % (Auto) (0-2) % Neut # (Auto) (4889-6825) /uL Lymph # (Auto) (7938-8599) /uL Dixie # (Auto) (0-900) /uL Eos # (Auto) (0-450) /uL Baso # (Auto) (0-100) /uL PT (10.1-12.7) SECONDS INR (0.9-1.3) APTT (26.4-36.2) SECONDS Sodium (137-145) mmol/L Potassium (3.4-5.1) mmol/L Chloride (98-107) mmol/L Carbon Dioxide (22-32) mmol/L BUN (9-20) mg/dL Creatinine (0.66-1.25) mg/dL Estimated GFR (>60) mL/min BUN/Creatinine Ratio (6-22) Glucose (80-110) mg/dL Calcium (8.4-10.2) mg/dL Total Bilirubin (0.2-1.3) mg/dL AST (17-59) IU/L ALT (21-72) IU/L Alkaline Phosphatase (38-126) U/L Total Creatine Kinase (55-170) U/L CK-MB (CK-2) CK-MB (CK-2) Rel Index Troponin I 0.086 H (0.01-0.034) ng/mL Total Protein (6.3-8.2) g/dL Albumin (3.5-5.0) g/dL Globulin (1.7-4.1) g/dL Albumin/Globulin Ratio (1.0-2.8) Lipase (23-300) U/L Imaging Data Chest x-ray: Radiologist's impression: [address] [address] XRay Report Signed Patient: Josh Mcguire EMR#: [id number] : 2Acct:[id number] Age/Sex: 68 / MDate of Service: 02/23/19 Loc: ED Accession Number: [id number] Procedure: XR chest 1V Ordering Provider: Michelle Cavanaugh D.O. PROCEDURE: XR CHEST 1V INDICATIONS: chest pain TECHNIQUE: One view of the chest was acquired. COMPARISON: [facility], , XR CHEST 1V, 02/15/2018, 12:52. FINDINGS: Surgical changes and devices: None. Lungs and pleura: Lungs are clear. No pleural effusions or pneumothorax. Mediastinum: Mediastinal contours appear normal. Heart size is normal. Bones and chest wall: No suspicious bony lesions. Overlying soft tissues appear unremarkable. IMPRESSION: No acute cardiopulmonary disease process. Dictated by: Aye Arita MD, PhD on 02/23/2019 at 10:28 Approved by: Aye Arita MD, PhD on 02/23/2019 at 10:29 ECG Data Attestation: I personally reviewed and interpreted this ECG as follows: Prior ECG tracings: available for review Interpretation: Atrial flutter with a rate of 144 QRS of 93 and QTC of [address] elevation or depression appreciated. Patient has couple PVCs. No specific change compared to prior from 10/16/18. MDM Narrative Medical decision making narrative: Dr. Del Rio, recommendations included giving the patient a dose of IV Lopressor, evaluating patient's rhythm and if appears to be SVT trying adenosine of appears to be atrial flutter loading the patient with 150 mg of amiodarone, if patient's lab work and rhythm are improving patient can be started on 400 mg amiodarone b.i.d. x7 days followed by 200 mg daily and he will set patient up for [facility] for evaluation for potential cardioversion as he is not a candidate today with his subtherapeutic INRs in the past. Patient's EKG appears to be atrial flutter, reviewed with Dr. Del Rio and he agrees. He asked that we give 15 mg total of Lopressor in 5 mg aliquots. He has received the 1st 1 already. Go ahead and load the patient with amiodarone patient's troponin is indeterminate will repeat troponin, patient is otherwise asymptomatic. Patient's lab work including CBC does not show acute changes, INRs 3, patients BUN is slightly elevated, troponin is indeterminant and slightly trending upwards. CXR nap. Patient did not improve on Metoprolol or with Amiodarone loading. Discussed again plan for Amiodarone gtt, and Diltiazem if not helpful and observation. Patient is aware and comfortable with plan. Dr. Shaw the hospitalist was contacted and accepts plan for ICU second to patient requiring gtt. Discharge Plan Departure Patient Disposition: Admitted As Inpatient Clinical Impression: Atrial flutter with rapid ventricular response Discharge Date/Time: 02/23/19 14:54 Referrals: La Zhou PA-C [Primary Care Provider] - Admit Date/Time: 02/23/19 14:32 Admit Provider: Lonnie Shaw
[2019-02-23 10:02] LABS: Add Manual Diff / Slide Review NO; Basophils Absolute Auto 100 /uL (0-100); Basophils Percent Auto 1.5 % (0-2); Eosinophils Absolute Auto 200 /uL (0-450); Eosinophils Percent Auto 2.1 % (2-4); Hematocrit 44.8 % (41-53); Hemoglobin 15.2 g/dL (13.5-17.5); Lymphocytes Absolute Auto 1400 /uL (1100-4500); Lymphocytes Percent Auto 17.9 % (25-40); Mean Corpuscular HGB Conc 33.8 % (30-36); Mean Corpuscular Hemoglobin 31.8 PG (26-34); Monocytes Absolute Auto 500 /uL (0-900); Neutrophils Absolute Auto 5400 /uL (1500-7000); Neutrophils Percent Auto 71.5 % (50-75); Platelet Count 265 X10^3/uL (150-400); Red Blood Cell Count 4.77 X10^6/uL (4.5-5.9); Red Cell Distribution Width 15.1 % (11.6-14.8); White Blood Cell Count 7.6 X10^3/uL (4.5-11.0)
[2019-02-23 10:03] LABS: Alanine Aminotransferase 19 IU/L (21-72); Albumin 4.1 g/dL (3.5-5.0); Albumin Globulin Ratio 1.4 (1.0-2.8); Alkaline Phosphatase 52 U/L (38-126); Aspartate Aminotransferase 17 IU/L (17-59); Bilirubin Total 0.9 mg/dL (0.2-1.3); Blood Urea Nitrogen 22 mg/dL (9-20); Calcium 10.1 mg/dL (8.4-10.2); Carbon Dioxide 23 mmol/L (22-32); Chloride 106 mmol/L (98-107); Creatine Kinase 98 U/L (55-170); Estimated Glomerular Filt Rate > 60.0 mL/min (>60); Globulin 2.9 g/dL (1.7-4.1); Glucose 102 mg/dL (80-110); HEMOLYSIS < 15 (0-50); Lipase 61 U/L (23-300); Potassium 4.2 mmol/L (3.4-5.1); Sodium 140 mmol/L (137-145)
[2019-02-23 10:15] LABS: Troponin I 0.079 ng/mL (0.01-0.034)
[2019-02-23] MEDS: SODIUM CHLORIDE 0.9% 1,000 ML 1000 ML IV (10:18)
[2019-02-23] MEDS: METOPROLOL TARTRATE 5 MG/5 ML INJ IV ×4 (10:18→22:55)
--- NOTE | 2019-02-23 11:30 | PC.NURSE ---
received report from CHELSI Payne. pt resting in bed with fluids completed. AAOx3. Pt reports the feeling of palpitations, denies CP, SOB. appears well. HR continues to be 140's ST without ectopy. metoprolol IV given without change. RR even and unlabored. pt reports he lives at home alone. recent BL knee replacement and L hip replacement. using crutches to ambulate and reports he is doing well without issue. currently awaiting records from Dr Del Rio's office, pt updated on plan of care.
[2019-02-23 12:29] LABS: Troponin I 0.086 ng/mL (0.01-0.034)
[2019-02-23] MEDS: AMIODARONE 150 MG/100 ML PIGGYBACK 300 MG IV (12:44)
--- NOTE | 2019-02-23 13:07 | PC.NURSE ---
Amiodarone infusion completed. pt tolerated well. MAP 77. HR 127 ST. reports feeling the same In NAD. 2nd trop mildly elevated compared to 1st. plan to admit. pt aware and agreeable. Per Dr Cavanaugh, goal HR closer to 100.
--- NOTE | 2019-02-23 14:04 | PC.NURSE ---
No new changes with cardiac assessment
[2019-02-23] MEDS: AMIODARONE 360 MG/200 ML PIGGYBACK 33.333 MG IV (14:32)
--- NOTE | 2019-02-23 14:49 | PC.NURSE ---
Report given to [facility] ICU. pt brought to ICU by ED RN on cardiac monitoring. Amio gtt 360mg infusing per order. NAD.
--- NOTE | 2019-02-23 15:06 | PC.ADMIT ---
Addendum entered by Anaid Beaver R.N. 02/23/19 15:10: Amiodarone gtt infusing at 1 mg/min (33.3 ml/hr). Original Note: Admission Note: Pt arrived to room 105 from ER via stretcher at 1500, moved self from stretcher to bed. HR in the 130s on monitor, aflutter RVR. Pt alert and oriented x3. RA with oxygen sats 96%. Denies pain, denies chest pain, denies SOB. Own crutches in room and clothing at bedside. MRSA swab sent. Oriented to room and to call light/bed/tv controls. Bed alarm is on. Call light within reach. MD in room at this time. The patient,Josh Mcguire,68 y/o, was given written information regarding hospital policies, unit procedures and contact persons. Patient's smoking status: Former smoker. Vital Signs - 8 hr 02/23/19 09:26 02/23/19 10:18 02/23/19 10:30 Temperature 97.8 F Pulse Rate 145 H 145 H 137 H Respiratory Rate 14 16 20 Blood Pressure 132/88 Blood Pressure [Right Arm] 130/82 110/76 Pulse Oximetry 96 95 95 02/23/19 11:00 02/23/19 12:00 02/23/19 12:30 Temperature Pulse Rate 111 H 140 H 140 H Respiratory Rate 19 20 19 Blood Pressure Blood Pressure [Right Arm] 118/81 116/79 114/80 Pulse Oximetry 95 96 96 02/23/19 12:42 02/23/19 13:06 02/23/19 13:28 Temperature Pulse Rate 130 H 127 H 130 H Respiratory Rate 20 12 19 Blood Pressure Blood Pressure [Right Arm] 122/83 99/71 104/74 Pulse Oximetry 95 94 95 02/23/19 14:50 Temperature Pulse Rate 135 H Respiratory Rate 16 Blood Pressure 112/80 Blood Pressure [Right Arm] Pulse Oximetry 93
--- NOTE | 2019-02-23 15:30 | PM.HP.1 ---
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 Patient says starting last night he began to feel some palpitations in his wrist and abdomen, and some mild dizziness with exertion, but did not seek medical attention because he had a cardiology appointment this morning. When he saw his flat surfacer jewel, the EKG in the clinic showed a heart rate of 146, and that he was in a flutter. He was sent to the emergency room for further management. He denies any recent fevers, chills. He has had no chest pain, nausea, vomiting, diaphoresis, orthopnea, or lower extremity edema. He feels very well other than the palpitations noted above. In the emergency room, his EKG showed a flutter with a rate of 144, and metoprolol IV was attempted. He was started on amiodarone infusion but his a flutter continued with the rate in the 130s. This was in consultation with Dr. Del Rio. He did not improve right away, so he was admitted to the ICU for continued amiodarone infusion and possible diltiazem infusion as well. I discussed the case with Dr. Del Rio ([phone]) who recommended to complete his amiodarone infusion, if he does not improve start diltiazem drip, and obtain an echocardiogram when his heart rate has improved. He will need to continue amiodarone outpatient in anticipation of a possible ablation in around 4 weeks. He further states that the patient was recently taken off of amiodarone to try and avoid long-term complications of this medication. Patient History Medical History Anemia (Chronic Unknown) Atrial fibrillation (Chronic 06/2017) Cardiomyopathy (Chronic 06/2017) CHF (congestive heart failure) (Chronic ~06/2017) Duodenal ulcer (Resolved Unknown) Encephalopathy (Resolved Unknown) Gastric ulcer (Resolved Unknown) Gastritis (Resolved Unknown) Hyperlipemia (Chronic Unknown) Hypertension (Chronic Unknown) Neurogenic bladder (Chronic Unknown) Neuropathy (Chronic Unknown) Osteoarthritis (Chronic Unknown) Osteopenia (Chronic 03/2016) Peptic ulcer (Resolved Unknown) Pyelonephritis (Acute ~2011) Sepsis (Acute) Surgical History History of bilateral knee replacement (Resolved Unknown) History of colon resection (Resolved) History of left hip replacement (Resolved Unknown) Hx of shoulder surgery (Resolved Unknown) Family History Mother Cancer Social History household members: none Smoking Status: Former smoker second hand exposure: No alcohol intake: never substance use type: does not use Family & Social History Family History Mother Cancer Social History: household members none Safety & Behavioral: Feels Safe in Current Yes Environment Been Physically Hurt or No Threatened By a Person Tobacco & Substance use: Smoking Status Former smoker alcohol intake never alcohol intake frequency other Substance Use Type does not use Meds Home Medications and Allergies Home Medications Medication Instructions Recorded Confirmed Type Disabled Parking Placard #1 ea 09/08/18 02/23/19 Rx omeprazole 20 mg PO BID 10/06/18 02/23/19 History cholecalciferol (vitamin D3) 2,000 4,000 unit PO DAILY #0 cap 10/12/18 02/23/19 History unit capsule varicella-zoster [id number] (PF) 50 50 mcg IM ONCE #1 each 10/12/18 02/23/19 Rx mcg/0.5 mL IM susp, kit polyethylene glycol 3350 [Miralax] 17 gram PO DAILY #119 gram 11/25/18 02/23/19 Rx carvedilol 12.5 mg tablet 12.5 mg PO BEDTIME tab 12/21/18 02/23/19 History ferrous sulfate 325 mg (65 mg 325 mg PO MOTUWETHFR tab 12/21/18 02/23/19 History iron) tablet furosemide 20 mg tablet 20 mg PO DAILY #90 tab 02/02/19 02/23/19 Rx losartan 25 mg tablet 25 mg PO BID tab 02/03/19 02/23/19 History atorvastatin 20 mg tablet 20 mg PO BEDTIME #90 tab 02/21/19 02/23/19 Rx acetaminophen 1,000 mg PO Q6H PRN 02/23/19 02/23/19 History spironolactone 12.5 mg PO DAILY 02/23/19 02/23/19 History tamsulosin [Flomax] 0.4 mg PO DAILY 02/23/19 02/23/19 History warfarin 3 mg PO SUTUWETHSA 02/23/19 02/23/19 History warfarin 6 mg PO MOFR 02/23/19 02/23/19 History Allergies Allergy/AdvReac Type Severity Reaction Status Date / Time ciprofloxacin Allergy Severe BREATHING Verified 02/23/19 09:40 PROBLEMS, CHILLS, SHAKES alendronate sodium AdvReac Severe GI bleed Verified 02/23/19 09:40 [ALENDRONATE SODIUM] cephalexin AdvReac Mild Headache Verified 02/23/19 09:40 morphine AdvReac Mild ABD PAIN Verified 02/23/19 09:40 Review of Systems Review of Systems Narrative: All other systems reviewed with the patient and are negative unless otherwise stated. Exam Vital Signs (past 8 hours): - 02/23/19 09:26 02/23/19 10:18 02/23/19 10:30 Temperature 97.8 F Pulse Rate 145 H 145 H 137 H Respiratory Rate 14 16 20 Blood Pressure 132/88 Blood Pressure [Right Arm] 130/82 110/76 Pulse Oximetry 96 95 95 02/23/19 11:00 02/23/19 12:00 02/23/19 12:30 Temperature Pulse Rate 111 H 140 H 140 H Respiratory Rate 19 20 19 Blood Pressure Blood Pressure [Right Arm] 118/81 116/79 114/80 Pulse Oximetry 95 96 96 02/23/19 12:42 02/23/19 13:06 02/23/19 13:28 Temperature Pulse Rate 130 H 127 H 130 H Respiratory Rate 20 12 19 Blood Pressure Blood Pressure [Right Arm] 122/83 99/71 104/74 Pulse Oximetry 95 94 95 02/23/19 14:50 Temperature Pulse Rate 135 H Respiratory Rate 16 Blood Pressure 112/80 Blood Pressure [Right Arm] Pulse Oximetry 93 Oxygen Delivery Method Room Air Narrative Exam Narrative: GENERAL APPEARANCE: Well developed, well nourished, in no acute distress. SKIN: Inspection of the skin reveals no rashes, ulcerations or petechiae. HEENT: The sclerae were anicteric and conjunctivae were pink and moist. Extraocular movements were intact and pupils were equal, round with normal accommodation. External inspection of the ears and nose showed no scars, lesions, or masses. Lips, teeth, and gums showed normal mucosa. The oral mucosa, hard and soft palate, tongue and posterior pharynx were unremarkable. He has poor dentition. NECK: Supple and symmetric. There was no thyroid enlargement, and no tenderness, or masses were felt. JVD to the level of the mandible. CHEST: Normal AP diameter and normal contour without any kyphoscoliosis. LUNGS: Auscultation of the lungs revealed no wheezes, rhonchi, or rales. CARDIOVASCULAR: There was a regular rate and rhythm without any murmurs, gallops, rubs. Peripheral pulses were 2+ and symmetric. ABDOMEN: Soft and nontender with normal bowel sounds. No ascites was noted. MUSCULOSKELETAL: There was no tenderness or effusions noted. Muscle strength and tone were normal. EXTREMITIES: No cyanosis, clubbing or edema. NEUROLOGIC: Alert and oriented x 3. Normal affect. Gait was normal. Strength is +5/5 in the Upper Extremities and Lower Extremities Bilaterally. Sensation to touch was normal. Objective Labs Result Diagrams: 02/23/19 09:32 02/23/19 09:32 Labs: Laboratory Results - last 24 hr 02/23/19 02/23/19 02/23/19 09:32 09:32 09:32 WBC 7.6 RBC 4.77 Hgb 15.2 Hct 44.8 MCV 94.0 MCH 31.8 MCHC 33.8 RDW 15.1 H Plt Count 265 Neut % (Auto) 71.5 Lymph % (Auto) 17.9 L [place] % (Auto) 7.0 Eos % (Auto) 2.1 Baso % (Auto) 1.5 Neut # (Auto) 5400 Lymph # (Auto) 1400 [place] # (Auto) 500 Eos # (Auto) 200 Baso # (Auto) 100 PT 35.1 H INR 3.0 H APTT 46 H D Sodium 140 Potassium 4.2 Chloride 106 Carbon Dioxide 23 BUN 22 H Creatinine 1.10 Estimated GFR > 60.0 BUN/Creatinine Ratio 20.0 Glucose 102 Calcium 10.1 Total Bilirubin 0.9 AST 17 ALT 19 L Alkaline Phosphatase 52 Total Creatine Kinase 98 CK-MB (CK-2) TNP CK-MB (CK-2) Rel Index TNP Troponin I 0.079 H Total Protein 7.0 Albumin 4.1 Globulin 2.9 Albumin/Globulin Ratio 1.4 Lipase 61 02/23/19 11:50 WBC RBC Hgb Hct MCV MCH MCHC RDW Plt Count Neut % (Auto) Lymph % (Auto) [place] % (Auto) Eos % (Auto) Baso % (Auto) Neut # (Auto) Lymph # (Auto) [place] # (Auto) Eos # (Auto) Baso # (Auto) PT INR APTT Sodium Potassium Chloride Carbon Dioxide BUN Creatinine Estimated GFR BUN/Creatinine Ratio Glucose Calcium Total Bilirubin AST ALT Alkaline Phosphatase Total Creatine Kinase CK-MB (CK-2) CK-MB (CK-2) Rel Index Troponin I 0.086 H Total Protein Albumin Globulin Albumin/Globulin Ratio Lipase Assessment & Plan Assessment & Plan narrative: Josh Mcguire is a 68 year old male with PMH of 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 1. Atrial flutter, acute, present on admission -he has a known history of atrial fibrillation status post cardioversion in the past, he is already on coumadin for AC. Spoke with patient's Undergraduate Internship Dr. Del Rio who recommended amiodarone infusion and if no conversion to start diltiazem. He recently stopped amiodarone as an outpatient to try and avoid exterminator helper termite side effects of this medication. He has JVD on exam but no LE edema and does not have rales on exam, will hold on diuresis at this time. - received initial bolus, 1st infusion at 1mg /kg /hr, will complete after 6 hours, then change to 0.5 mg /kg/hr for additional 18 hours. - possible diltiazem gtt if no improvement in rate (currently in the 130s) - outpatient follow up with Dr. Del Rio for possible ablation in approx 4 weeks. - continue warfarin - TTE once rate improved, ordered for the AM - hold coreg in anticipation of possible diltiazem. 2. Elevated troponin / Type II [place] - likely in setting of demand from atrial flutter. - continue to trend until downtrending 3. tachyarrthmia induced cardiomyopathy - history as ntoed above. Recent EF 58%. - continue 4. HLD, chronic, - continue home lipitor 5. HTN, chronic - - hold coreg as noted above - continue losartan 25 - aldactone 12.5 mg daily. 6. BPH, chronic, with urinary retention - patient self catherizes at home. - insert aldana catheter for accurate intake and output in setting of new atrial flutter. - straight cath once improved. - continue home flomax.
[2019-02-23] MEDS: DILTIAZEM 125 MG/125 ML PIGGYBACK IV (17:14)
--- NOTE | 2019-02-23 17:21 | PC.NURSE ---
Addendum entered by Adilene Chamberlain R.N. 02/23/19 22:56: At 22:21 pt HR in 130's, entered room and pt was shaking stating he was freezing. Pt seen to be shaking and pale. Stated he had chest pain, heaviness to sub sternal area when pointing with his hands. Stated it felt like something sitting on top of him. RESIDENTIAL GAS HEAT TECHNICIAN Paco called, stat EKG conducted, 2LNC placed. Pt unable to rate pain. Pale and anxious. Verbal order to give SL Nitro 0.4mg with BP of 129/86. 5mg IV Lopressor given at 22:55. will continue to monitor. HR 136 at 23:02 with a BP of 111/68. Pt states he is more comfortable, the pain is less, states he is less anxious. Sleeping now. 98% on 2LNC Addendum entered by Adilene Chamberlain R.N. 02/23/19 20:02: Pt with HR in 70's Aflutter, BP 107/42. RESIDENTIAL GAS HEAT TECHNICIAN in unit and aware. Aldana catheter with no output- withdrew and trouble shot aldana output- no urine output. Withdrew balloon 10mL- probable clot. Bladder scan of 380mL. No discomfort. Placed 14fr coude catheter with no incident and draining light yellow urine now. Will monitor. Pt comfortable and updated on procedures and reasons for changing catheters. Original Note: Pt started on Dilt drip 5mg/hr. Amiodarone drip continues at 33.3ml/hr now. Will change rate per protocol at 20:30. IV patent, in AC and kinking often preventing infusion continuously. Will place new IV at more optimal site for two gtt infusions.
[2019-02-23] MEDS: WARFARIN 3 MG TABLET PO (17:39)
[2019-02-23] MEDS: AMIODARONE 541 MG/300.56 ML PIGGYBACK 16.7 MG IV (20:21)
[2019-02-23 20:30] LABS: Troponin I 0.064 ng/mL (0.01-0.034)
[2019-02-23] MEDS: ATORVASTATIN 20 MG TABLET PO (20:40)
[2019-02-23] MEDS: ACETAMINOPHEN 325 MG TABLET 650 MG PO (21:20)
[2019-02-23] MEDS: NITROGLYCERIN 0.4 MG SL TAB SL (22:32)
[2019-02-23 22:46] LABS: Add Manual Diff / Slide Review NO; Basophils Absolute Auto 0 /uL (0-100); Basophils Percent Auto 0.4 % (0-2); Eosinophils Absolute Auto 0 /uL (0-450); Lymphocytes Absolute Auto 500 /uL (1100-4500); Monocytes Absolute Auto 0 /uL (0-900); Neutrophils Absolute Auto 2000 /uL (1500-7000)
[2019-02-23 22:51] LABS: Eosinophils Percent Auto 1.5 % (2-4); Hematocrit 47.6 % (41-53); Hemoglobin 15.9 g/dL (13.5-17.5); Lymphocytes Percent Auto 18.6 % (25-40); Mean Corpuscular HGB Conc 33.4 % (30-36); Mean Corpuscular Volume 95.9 fL (80-100); Monocytes Percent Auto 0.2 % (3-14); Neutrophils Percent Auto 79.3 % (50-75); Platelet Count 217 X10^3/uL (150-400); Red Blood Cell Count 4.97 X10^6/uL (4.5-5.9); Red Cell Distribution Width 15.2 % (11.6-14.8)
[2019-02-23 22:58] LABS: BUN Creatinine Ratio 16.9 (6-22); Blood Urea Nitrogen 22 mg/dL (9-20); Calcium 9.8 mg/dL (8.4-10.2); Carbon Dioxide 26 mmol/L (22-32); Chloride 104 mmol/L (98-107); Creatine Kinase 60 U/L (55-170); Estimated Glomerular Filt Rate 55.1 mL/min (>60); Glucose 63 mg/dL (80-110); HEMOLYSIS < 15 (0-50); Magnesium 1.6 mg/dL (1.6-2.3); Potassium 3.6 mmol/L (3.4-5.1); Sodium 142 mmol/L (137-145)
[2019-02-23 23:02] LABS: White Blood Cell Count 2.6 X10^3/uL (4.5-11.0)
[2019-02-23 23:10] LABS: Troponin I 0.097 ng/mL (0.01-0.034)
[2019-02-23 23:37] LABS: Procalcitonin < 0.05 ng/mL (<0.5)
--- NOTE | 2019-02-23 23:46 | PC.NURSE ---
Addendum entered by Pratima Rosas R.N. 02/24/19 06:09: 0550 Pt converted to SR, rate 60's. BP 86/40. Diltiazem titrated down to 10 mL/hour. TNI continues to trend upward. MARIZOL Austin made aware of events. Orders for 250mL bolus received. Pt remains CP free. Original Note: Care assumed. Pt in NAD but looks unwell. HR remains elevated in the 130's. TNI trending back up, MARIZOL Austin made aware and is currently at bedside for re-eval. Plan for magnesium and potassium replacement. Pt is CP free after nitro X 1. BP stable. Sp02 98% 2LNC.
[2019-02-24] VITALS (27 sets, daily range): BP systolic 86–122; BP diastolic 36–71; PULSE 67–134; RESP 10–21; TEMP 36.6–37.8; O2SAT 95–98
[2019-02-24] MEDS: MAGNESIUM SULFATE 2 GM/50 ML PIGGYBACK IV (00:07)
[2019-02-24] MEDS: POTASSIUM CHLORIDE 60 MEQ in SODIUM CHLORIDE 0.9% 500 ML 88.333 ML IV (00:07)
--- NOTE | 2019-02-24 00:08 | PM.EVENT ---
Event Note Date Patient Seen: 02/23/19 Time Patient Seen: 22:15 Event Note: I was called to the patient's bedside to evaluate the patient for recurrent tachyarrhythmia, substernal chest pain, pallor and shaking chills. The patient's heart rate had improved to the 70s albeit remain in atrial flutter with variable conduction. The patient is on amiodarone infusion and diltiazem infusion and has been pain free without complaints shortness of breath or nausea. The patient now complains of substernal chest pressure that feels somewhat better with deep inspiration, supraventricular tachycardia at 138 without ectopy or evidence of block. Obtained stat 12 lead EKG which is comparable to prior EKG revealing atrial flutter 2:1 with no new evidence of ischemia or infarct. Patient is given nitroglycerin 0.4 mg sublingual x1 with improvement in chest pain and he is also given 5 mg metoprolol IV with resolution of chest pain, cessation of shivering/chills but no change in heart rate. Patient also presents with rigors without previously having a fever and now is documented to have a temporal temperature of 100?. Stat labs obtained including BMP, CBC, cardiac panel, procalcitonin and urinalysis. On lab results the patient has had a marked change in his white count which is previously normal now and decrease to 2.6 with left shift increase in neutrophils to 79.3%. On chemistries serum glucose is 63 which is treated with oral carbohydrates, his is potassium is 3.6 and will be repleted with 60 mEq of KCl and spirolactone is held. Magnesium is also found to be 1.6 and the patient will receive 2 g of magnesium IV. Additional lab work was ordered including blood cultures and lactate. The patient is self catheterization and has had frequent UTIs with E coli with resistance pattern on prior cultures. Will await urinalysis and likely treat with ceftriaxone. Discussed the plan with the patient noting that he has an allergy listed to cephalexin. He describes his reaction as feeling like he has an echo chamber. Urinalysis is positive for blood though he had somewhat traumatic catheterization, leukocyte esterase, WBCs and many bacteria will proceed with ceftriaxone IV.
[2019-02-24 00:22] LABS: Appearance Urine UA SL CLOUDY; Bilirubin Urine UA NEGATIVE (NEGATIVE); Color Urine UA YELLOW; Glucose Urine UA NEGATIVE (Negative); Ketones Urine UA NEGATIVE (NEGATIVE); Leukocyte Esterase Urine UA 1+ (NEGATIVE); Nitrite Urine UA NEGATIVE (Negative); Occult Blood Urine UA 3+ (Negative); Protein Urine UA NEGATIVE (Negative); Urobilinogen Urine UA 0.2 E.U./dL (0.2)
[2019-02-24 00:25] LABS: Lactate (Lactic Acid) 1.3 mmol/L (0.7-2.1)
[2019-02-24 00:29] LABS: Bacteria Urine Many (>30); Culture Indicated Urine Specimen Cultured; RBC Urine 5-10/HPF (0-5/HPF); Squamous Epithelial Cell Urine 0-1 /HPF (0-5/HPF); WBC Urine 30-100/HPF (0-5/HPF)
[2019-02-24] MEDS: DILTIAZEM 125 MG/125 ML PIGGYBACK 15 MG IV (00:57)
[2019-02-24] MEDS: CEFTRIAXONE 2 GM/50 ML FROZ.PIGGY IV (01:55)
[2019-02-24] MEDS: METOPROLOL IR 25 MG TABLET PO (02:05)
[2019-02-24] MEDS: ACETAMINOPHEN 325 MG TABLET 650 MG PO ×2 (03:09→20:29)
[2019-02-24] MEDS: PANTOPRAZOLE 20 MG TABLET PO ×2 (05:01→20:27)
[2019-02-24 05:28] LABS: INR 3.7 (0.9-1.3); Prothrombin Time 44.6 SECONDS (10.1-12.7)
[2019-02-24 05:30] LABS: PTT Partial Thromboplastin Tim 38 SECONDS (26.4-36.2)
[2019-02-24 05:32] LABS: Alanine Aminotransferase 42 IU/L (21-72); Albumin 3.3 g/dL (3.5-5.0); Albumin Globulin Ratio 1.3 (1.0-2.8); Alkaline Phosphatase 55 U/L (38-126); Aspartate Aminotransferase 53 IU/L (17-59); BUN Creatinine Ratio 18.3 (6-22); Bilirubin Total 0.6 mg/dL (0.2-1.3); Blood Urea Nitrogen 22 mg/dL (9-20); Carbon Dioxide 21 mmol/L (22-32); Chloride 108 mmol/L (98-107); Cholesterol 78 mg/dL (140-199); Estimated Glomerular Filt Rate > 60.0 mL/min (>60); Globulin 2.6 g/dL (1.7-4.1); Glucose 120 mg/dL (80-110); HDL Cholesterol 37 mg/dL (40-60); HEMOLYSIS < 15 (0-50); LDL Cholesterol Calculated 31 mg/dL (<100); Magnesium 2.1 mg/dL (1.6-2.3); Sodium 136 mmol/L (137-145); Total Protein 5.9 g/dL (6.3-8.2); Triglycerides 51 mg/dL (35-150)
[2019-02-24 05:44] LABS: Troponin I 0.103 ng/mL (0.01-0.034)
[2019-02-24 05:45] LABS: Hemoglobin A1C% w Est Avg Glu 4.9 % (4.0-6.0)
[2019-02-24] MEDS: SODIUM CHLORIDE 0.9% 250 ML 1000 ML IV (06:15)
[2019-02-24] MEDS: AMIODARONE 541 MG/300.56 ML PIGGYBACK 16.7 MG IV (08:20)
[2019-02-24] MEDS: AMIODARONE 200 MG TABLET 400 MG PO ×2 (08:46→16:49)
[2019-02-24] MEDS: CHOLECALCIFEROL (VITAMIN D3) 1,000 UNIT TABLET 4000 UNIT PO (08:46)
[2019-02-24] MEDS: SPIRONOLACTONE 25 MG TABLET 12.5 MG PO (08:47)
[2019-02-24] MEDS: TAMSULOSIN 0.4 MG CAPSULE PO (08:51)
--- NOTE | 2019-02-24 09:00 | DI.ECHO.S_ITS ---
[facility]---------+ [facility] +---------+ : : [address] : : : : [id number] : : : : Phone: [phone]+ Echocardiogram Report + + :Name: EULOGIO BENAVIDEZ Study Date: 02/24/2019 Height: 69 in : :[facility] Exam Location: [facility] Weight: 173 lb: : Gender: Male BSA: 1.9 m2 : :: 1950 Age: 68 yrs BP: 91/41 mmHg: :Reason For Study: AFLUTTER : : Performed By: Nathaniel Stafford : :Referring: REED SMITH : + + Interpretation Summary The left ventricle is moderately dilated. The ejection fraction is estimated to be 35-40%. Compared to the prior exam, the left ventricular function is reduced. There is moderate global hypokinesis of the left ventricle. The right ventricle is normal size. Right ventricular systolic function is mildly reduced. There is mild to moderate mitral regurgitation. Compared to the prior echo study, there has been an increase in the severity of mitral regurgitation. There is moderate aortic regurgitation. Compared to the prior echo study, there has been no change in the severity of aortic regurgitation. There is mild to moderate tricuspid regurgitation. Compared to the prior echo exam, there has been an increase in TR severity. The right ventricular systolic pressure is estimated to be at least 34 mmHg based on an estimated right atrial pressure of 8 mm Hg. Ao root diam: 4.8 cm asc Aorta Diam: 4.2 cm Ao Arch Diam (Prox Trans): 3.3 cm In : Ao root diam: 4.8 cm asc Aorta Diam: 4.3 cm Ao Arch Diam (Prox Trans): 3.7 cm Procedure: A two-dimensional transthoracic echocardiogram with color flow and Doppler was performed. The study quality was technically good. Comparison is made with the echocardiogram of 07/01/18. The patient was in normal sinus rhythm during the exam. Left Ventricle: There is normal left ventricular wall thickness. The left ventricle is moderately dilated. There is no thrombus. The ejection fraction is estimated to be 35-40%. Compared to the prior exam, the left ventricular function is reduced. There is moderate global hypokinesis of the left ventricle. E/E' med: 12.0. Right Ventricle: The right ventricle is normal size. Right ventricular systolic function is mildly reduced. Atria: The left atrium is severely dilated. The left atrium has mildly increased in size since the prior echo exam. The right atrium is moderately dilated. The interatrial septum is intact with no evidence for an atrial septal defect. Mitral Valve: There is mild mitral annular calcification. There is systolic anterior motion of the chordal apparatus. There is no evidence of mitral valve prolapse. No significant mitral valve stenosis. There is mild to moderate mitral regurgitation. Compared to the prior echo study, there has been an increase in the severity of mitral regurgitation. Aortic Valve: The aortic valve is trileaflet. The aortic valve is mildly calcified. The aortic valve opens well. There is moderate aortic regurgitation. There is an eccentric jet of aortic insufficiency directed against the anterior mitral leaflet. Compared to the prior echo study, there has been no change in the severity of aortic regurgitation. Tricuspid Valve: The tricuspid valve is normal. There is mild to moderate tricuspid regurgitation. The right ventricular systolic pressure is estimated to be at least 34 mmHg based on an estimated right atrial pressure of 8 mm Hg. Compared to the prior echo exam, there has been an increase in TR severity. Pulmonic Valve: The pulmonic valve is not well seen, but is grossly normal. There is trace pulmonic regurgitation. Great Vessels: The aortic root is moderately dilated. The ascending aorta is moderately enlarged. The aortic arch is mildly enlarged. The pulmonary artery is normal size. The IVC is dilated (diameter is greater than 2.1 cm) yet it collapses greater than 50% with a sniff. This suggests a right atrial pressure of 8 mm Hg. Pericardium/ Pleura There is no pericardial effusion. There is no pleural effusion. MMode/2D Measurements & Calculations LVIDd: 6.7 cm LVOT diam: 3.4 cm LVIDs: 5.4 cm Ao root diam: 4.8 cm FS: 19.3 % asc Aorta Diam: 4.2 cm EPSS: 3.4 cm Ao Arch Diam (Prox Trans): 3.3 cm IVSd: 0.88 cm LVPWd: 0.98 cm LV fulton. diameter/BSA (cm/m^2): 3.5 LV sys. diameter/BSA (cm/m^2): 2.8 LA dimension: 3.8 cm RA long axis: 6.2 cm LA A2 area: 24.9 cm2 RA area: 25.7 cm2 LA A4 area: 28.4 cm2 RA vol: 90.8 ml LA length (vol): 5.5 cm RA : 46.8 ml/m2 LA vol: 108.2 ml IVC diam: 2.6 cm LA vol index: 55.7 ml/m2 Doppler Measurements & Calculations Ao V2 max: 104.3 cm/sec LVOT Max Anthony: 86.1 cm/sec Ao V2 mean: 83.0 cm/sec LV V1 max P.0 mmHg Ao max P.3 mmHg LV V1 VTI: 18.2 cm Ao mean P.9 mmHg CATERINA(I,D): 8.6 cm2 Ao V2 VTI: 19.3 cm CATERINA(V,D): 7.5 cm2 sev ratio: 0.94 CATERINA indexed to BSA (cm^2/m^2): 4.4 AI P1/2t: 410.8 msec AI dec slope: 224.5 cm/sec2 MV E max anthony: 56.9 cm/sec TR max anthony: 254.4 cm/sec MV A max anthony: 1.6 cm/sec TR max P.9 mmHg MV E/A: 35.7 PA V2 max: 36.8 cm/sec Med Peak E' Anthony: 4.7 cm/sec PA V2 mean: 28.0 cm/sec E/E' med: 12.0 PA mean P.34 mmHg Lat Peak E' Anthony: 3.7 cm/sec PA pr(Accel): 41.6 mmHg E/E' lat: 15.4 PA Accel Time: 0.09 sec E/e' average: 13.7 MV dec time: 0.18 sec SV(LVOT): 165.6 ml Reading Physician:12:58 PM
[2019-02-24 12:51] LABS: Troponin I 0.077 ng/mL (0.01-0.034)
--- NOTE | 2019-02-24 15:27 | CM.DANOTE ---
Discharge Planning/Care Management DCP: assessment: case received, EMR reviewed. Discussed case in Team Rounds. Pt is a 68 year old male who admitted yesterday afternoon after going to his cardiology appt and being advised by cardiology to present to the ER. He was admitted to care of hospitalist team. INPT admission status: confirmed by UR CHELSI Fried Payer: [facility] ER physician and then hospitalist Dr. Shaw conferred with pt's circuit clerk Dr. Schmitt. Pt is also being treated for a UTI and on IV antibiotics with C&S pending. PT does self cath at baseline and aldana catheter has been placed to help monitor the urinary tract status. Pt was last here in October 2018 for surgical hernia repair. At that time he did d/c home with his sister's support. P: check in tomorrow to meet pt, introduce self and role and continue the DCP assessment process. Dr. Guzman is seeing pt today, her note is not yet available. CM Discharge Assessment Start: 02/24/19 15:25 Freq: Status: Active Protocol: Document 02/24/19 15:25 ITV (Rec: 02/24/19 15:26 ITV [id number]) Discharge Planning Assessment Advance Directives? No History Provided By Medical Record Prior Living Arrangements Apartment/Condo Household Members none Is patient alert and oriented? Yes Review Status In Process
--- NOTE | 2019-02-24 15:58 | PM.PN.1 ---
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 Interval history: Patient spontaneous converted to sinus rhythm at approximately 06:00 this morning. The patient is resting in bed comfortably. He has no complaints. He reports significant chills and rigors that he was very symptomatic of and caused him significant discomfort and distress overnight. He was started on ceftriaxone 2 g for suspected UTI. He endorses mild chest pressure yesterday evening that has since resolved and mild sore throat today. He has no other complaints and denies headache, cough, shortness of breath, chest pain, abdominal pain, nausea, vomiting, fever, chills, dysuria, diarrhea or constipation. He is voiding via straight cath for neurogenic bladder and eliminating without difficulty. He is up ambulating without assistance. Exam Vital Signs (past 8 hours): - 02/24/19 15:00 02/24/19 18:00 02/24/19 19:00 Temperature Pulse Rate 95 H 92 H Respiratory Rate 16 16 Blood Pressure 111/55 L 99/51 L Pulse Oximetry 97 96 95 02/24/19 20:27 02/24/19 20:29 02/24/19 20:30 Temperature 100.1 F H 100.1 F H Pulse Rate 85 89 Respiratory Rate 17 Blood Pressure 111/58 L 105/51 L Pulse Oximetry 96 02/24/19 22:30 Temperature 99.1 F Pulse Rate 71 Respiratory Rate 18 Blood Pressure 93/46 L Pulse Oximetry Oxygen Delivery Method Room Air Oxygen Flow Rate 0 Narrative Exam Narrative: General: Older gentleman sitting in bed and in no acute distress, well-developed, well-nourished, appropriately interactive HEENT: Normocephalic, atraumatic. External ears without defect. Pupils equal, round, and reactive to light. Anicteric sclerae, moist conjunctivae, and no lid lag. Oropharynx free of erythema and cobble stoning with moist mucosa. Poor dentitiion. Neck: Supple with full range of motion. No jugular venous distension. No lymphadenopathy or thyromegaly. Cardiovascular: Regular rate and rhythm without murmurs, rubs, or gallops appreciated Pulmonary: Clear to auscultation bilaterally without crackles, wheezes, or rhonchi. Normal respiratory effort without use of accessory muscles. Abdomen: Soft, bowel sounds present, mild suprapubic tenderness to palpation otherwise nontender, nondistended. No hepatosplenomegaly or masses appreciated. Extremities: No clubbing, cyanosis, or edema. Skin: Normal temperature, turgor, and texture; no rash, ulcers, or subcutaneous nodules appreciated. Neurological: Cranial nerves grossly intact. Psychiatric: Normal mood and affect. Alert and oriented to person, place, and time. Objective Labs Result Diagrams: 02/23/19 22:34 02/24/19 04:58 Labs: Laboratory Results - last 24 hr 02/23/19 02/23/19 02/23/19 22:34 22:34 22:34 WBC 2.6 L D RBC 4.97 Hgb 15.9 Hct 47.6 MCV 95.9 MCH 32.0 MCHC 33.4 RDW 15.2 H Plt Count 217 Neut % (Auto) 79.3 H Lymph % (Auto) 18.6 L Dolores % (Auto) 0.2 L Eos % (Auto) 1.5 L Baso % (Auto) 0.4 Neut # (Auto) 2000 Lymph # (Auto) 500 L Dolores # (Auto) 0 Eos # (Auto) 0 Baso # (Auto) 0 PT INR APTT Sodium 142 Potassium 3.6 Chloride 104 Carbon Dioxide 26 BUN 22 H Creatinine 1.30 H Estimated GFR 55.1 L BUN/Creatinine Ratio 16.9 Glucose 63 L Hemoglobin A1c Lactate Calcium 9.8 Magnesium 1.6 Total Bilirubin AST ALT Alkaline Phosphatase Total Creatine Kinase 60 CK-MB (CK-2) TNP CK-MB (CK-2) Rel Index TNP Troponin I 0.097 H Total Protein Albumin Globulin Albumin/Globulin Ratio Triglycerides Cholesterol LDL Cholesterol, Calc HDL Cholesterol Procalcitonin < 0.05 TSH Urine Color Urine Appearance Urine pH Ur Specific Dickens Urine Protein Urine Glucose (UA) Urine Ketones Urine Occult Blood Urine Nitrate Urine Bilirubin Urine Urobilinogen Ur Leukocyte Esterase Urine RBC Urine WBC Ur Squamous Epith Cells Urine Bacteria Ur Culture Indicated? 02/23/19 02/24/19 02/24/19 23:48 00:05 04:58 WBC RBC Hgb Hct MCV MCH MCHC RDW Plt Count Neut % (Auto) Lymph % (Auto) Dolores % (Auto) Eos % (Auto) Baso % (Auto) Neut # (Auto) Lymph # (Auto) Dolores # (Auto) Eos # (Auto) Baso # (Auto) PT 44.6 H D INR 3.7 H APTT 38 H D Sodium Potassium Chloride Carbon Dioxide BUN Creatinine Estimated GFR BUN/Creatinine Ratio Glucose Hemoglobin A1c Lactate 1.3 Calcium Magnesium Total Bilirubin AST ALT Alkaline Phosphatase Total Creatine Kinase CK-MB (CK-2) CK-MB (CK-2) Rel Index Troponin I Total Protein Albumin Globulin Albumin/Globulin Ratio Triglycerides Cholesterol LDL Cholesterol, Calc HDL Cholesterol Procalcitonin TSH Urine Color Yellow Urine Appearance Sl cloudy Urine pH 5.0 Ur Specific Dickens 1.020 Urine Protein Negative Urine Glucose (UA) Negative Urine Ketones Negative Urine Occult Blood 3+ H Urine Nitrate Negative Urine Bilirubin Negative Urine Urobilinogen 0.2 Ur Leukocyte Esterase 1+ H Urine RBC 5-10/hpf H Urine WBC 30-100/hpf H Ur Squamous Epith Cells 0-1 /hpf Urine Bacteria Many (>30) H Ur Culture Indicated? Specimen cultured 02/24/19 02/24/19 02/24/19 04:58 04:58 04:58 WBC RBC Hgb Hct MCV MCH MCHC RDW Plt Count Neut % (Auto) Lymph % (Auto) Dolores % (Auto) Eos % (Auto) Baso % (Auto) Neut # (Auto) Lymph # (Auto) Dolores # (Auto) Eos # (Auto) Baso # (Auto) PT INR APTT Sodium 136 L Potassium 4.0 Chloride 108 H Carbon Dioxide 21 L BUN 22 H Creatinine 1.20 Estimated GFR > 60.0 BUN/Creatinine Ratio 18.3 Glucose 120 H Hemoglobin A1c 4.9 Lactate Calcium 9.0 Magnesium 2.1 Total Bilirubin 0.6 AST 53 ALT 42 Alkaline Phosphatase 55 Total Creatine Kinase CK-MB (CK-2) CK-MB (CK-2) Rel Index Troponin I Total Protein 5.9 L Albumin 3.3 L Globulin 2.6 Albumin/Globulin Ratio 1.3 Triglycerides 51 Cholesterol 78 L LDL Cholesterol, Calc 31 HDL Cholesterol 37 L Procalcitonin TSH 1.40 Urine Color Urine Appearance Urine pH Ur Specific Dickens Urine Protein Urine Glucose (UA) Urine Ketones Urine Occult Blood Urine Nitrate Urine Bilirubin Urine Urobilinogen Ur Leukocyte Esterase Urine RBC Urine WBC Ur Squamous Epith Cells Urine Bacteria Ur Culture Indicated? 02/24/19 02/24/19 04:58 12:06 WBC RBC Hgb Hct MCV MCH MCHC RDW Plt Count Neut % (Auto) Lymph % (Auto) Dolores % (Auto) Eos % (Auto) Baso % (Auto) Neut # (Auto) Lymph # (Auto) Dolores # (Auto) Eos # (Auto) Baso # (Auto) PT INR APTT Sodium Potassium Chloride Carbon Dioxide BUN Creatinine Estimated GFR BUN/Creatinine Ratio Glucose Hemoglobin A1c Lactate Calcium Magnesium Total Bilirubin AST ALT Alkaline Phosphatase Total Creatine Kinase CK-MB (CK-2) CK-MB (CK-2) Rel Index Troponin I 0.103 H 0.077 H Total Protein Albumin Globulin Albumin/Globulin Ratio Triglycerides Cholesterol LDL Cholesterol, Calc HDL Cholesterol Procalcitonin TSH Urine Color Urine Appearance Urine pH Ur Specific Dickens Urine Protein Urine Glucose (UA) Urine Ketones Urine Occult Blood Urine Nitrate Urine Bilirubin Urine Urobilinogen Ur Leukocyte Esterase Urine RBC Urine WBC Ur Squamous Epith Cells Urine Bacteria Ur Culture Indicated? Assessment & Plan Assessment & Plan narrative: Josh Mcguire is a 68-year-old male with a past medical history significant for tachyarrythmia induced cardiomyopathy secondary to atrial fibrillation (atrial fibrillation EF 25% and then status post cardioversion with EF of 58%), hypertension, hyperlipidemia, peptic ulcer disease with previous GI bleed who presented from the cardiology clinic with palpitations. 1. Atrial fibrillation/flutter with RVR, present on admission. Resolved. -He has a known history of atrial fibrillation status post previous cardioversion. He is on coumadin for anticoagulation. 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 Del Rio ,who recommended amiodarone infusion and if he does not convert or rate not controlled to start diltiazem. He was recently stopped on amiodarone as an outpatient to try and avoid terminal clerk side effects of this medication. -Patient loaded with amiodarone bolus and started on amiodarone gtt with infusion completing. Started amiodarone 400 mg twice daily for 1 week then decrease to 200 daily thereafter per cardiology. Started diltiazem gtt for further rate control. Patient spontaneously converted to sinus rhythm at approximate 0600. Titrated off diltiazem gtt. -Patient will need outpatient follow up with Dr. Del Rio for possible ablation in approx 4 weeks. -Held warfarin as INR supratherapeutic and likely due to amiodarone interference with metabolism. Continue to monitor INR daily and adjust as necessary. -Ordered echocardiogram, pending. -Restarted carvedilol at 25 mg twice daily with hold parameters for SBP < 100 mmHg and may need to adjust due to BP low normal. 2. Acute complicated urinary tract infection, secondary to chronic straight catheterization for BPH and neurogenic bladder, present on admission. Active. -Patient began having chills and rigors overnight on 02/23/2019 which prompted urinalysis. -Urinalysis appears grossly infected and sent for culture, pending. -Continue ceftriaxone 2 g IV daily pending culture and sensitivities. 3. Acute elevated troponin secondary to demand ischemia, present on admission. Resolved. -Secondary to atrial fibrillation/flutter with RVR.- likely in setting of demand from atrial flutter. -Initial troponin 0.079. Peaked at 0.103. Trended down to 0.077. Continued to trend until downward trending then discontinued. -Patient with history of intermittent neurogenic bladder for decades due to encephalitis as child which is questionable and concerned for BPH progressing. Recommend follow-up with outpatient urologist. 4. Tachyarrthmia induced cardiomyopathy, chronic, present on admission. Stable. -Ordered echocardiogram, pending. Most recent EF 58%. -Restart losartan at 12.5 mg daily tomorrow due to low normal BP. 5. Hypertension, chronic, present on admission. Stable -Initially held since carvedilol and losartan due to anti-arrhythmic and rate control medications as above. -Restarted carvedilol increased from 12.5 mg to 25 mg twice daily with hold parameter of SBP < 100 mmHg and may need to adjust for low normal BP. Restarted losartan tomorrow at half normal dose 12.5 mg daily tomorrow due to low normal BP. Held spironolactone 12.5 mg daily and will discuss if this should be restarted with cardiology. 6. Hyperlipidemia, chronic, present on admission. Stable. -Continue atorvastatin 20 mg daily at bedtime. 7. BPH with urinary retention and history of neurogenic bladder requiring straight catheterization, chronic, present on admission. Stable. -Patient with history of intermittent neurogenic bladder for decades due to encephalitis as child which is questionable and concerned for BPH progressing. Recommend follow-up with outpatient urologist. -Continue home tamsulosin 0.4 mg daily. Disposition: Patient likely to discharge home in 1-2 days pending stabilization on cardiac medications and urine culture and sensitivities.
[2019-02-24] MEDS: CARVEDILOL 12.5 MG TABLET PO (20:27)
[2019-02-24] MEDS: ATORVASTATIN 20 MG TABLET PO (20:27)
--- NOTE | 2019-02-24 20:41 | PC.NURSE ---
Addendum entered by Adilene Chamberlain R.N. 02/24/19 22:51: Pt sleeping comfortably. BP 90s/40s with MAPS 70s. Mentating well, denies pain. Addendum entered by Adilene Chamberlain R.N. 02/24/19 20:46: Pt repositioned in bed. Clementine care given. No further blood from meatus noticed. Original Note: Pt with tele strip showing P wave atop the T wave. EKG done at the bedside stat. FAMILY SOCIOLOGIST called to ICU to eval. Pt asymptomatic with WINSTON 105/51 and HR 83. Amiodarone gtt complete. Denies chest pain, pain, SOB. LGT 100.1- given PO tylenol. Will continue to monitor.
[2019-02-25] VITALS (9 sets, daily range): BP systolic 98–134; BP diastolic 44–84; PULSE 64–93; RESP 14–24; TEMP 37.1–37.2; O2SAT 95–98
[2019-02-25] MEDS: CEFTRIAXONE 2 GM/50 ML FROZ.PIGGY IV (00:06)
[2019-02-25 05:21] LABS: Add Manual Diff / Slide Review NO; Basophils Absolute Auto 0 /uL (0-100); Basophils Percent Auto 0.3 % (0-2); Eosinophils Absolute Auto 100 /uL (0-450); Eosinophils Percent Auto 1.1 % (2-4); INR 2.4 (0.9-1.3); Lymphocytes Absolute Auto 700 /uL (1100-4500); Mean Corpuscular HGB Conc 33.4 % (30-36); Mean Corpuscular Hemoglobin 31.7 PG (26-34); Mean Corpuscular Volume 94.9 fL (80-100); Monocytes Absolute Auto 800 /uL (0-900); Neutrophils Absolute Auto 11600 /uL (1500-7000); Neutrophils Percent Auto 87.6 % (50-75); Platelet Count 124 X10^3/uL (150-400); Prothrombin Time 28.8 SECONDS (10.1-12.7); Red Blood Cell Count 4.11 X10^6/uL (4.5-5.9); Red Cell Distribution Width 15.6 % (11.6-14.8); White Blood Cell Count 13.2 X10^3/uL (4.5-11.0)
[2019-02-25 05:30] LABS: Magnesium 2.2 mg/dL (1.6-2.3)
[2019-02-25 05:46] LABS: BUN Creatinine Ratio 23.8 (6-22); Blood Urea Nitrogen 31 mg/dL (9-20); Calcium 8.7 mg/dL (8.4-10.2); Carbon Dioxide 24 mmol/L (22-32); Chloride 105 mmol/L (98-107); Estimated Glomerular Filt Rate 55.1 mL/min (>60); Glucose 93 mg/dL (80-110); HEMOLYSIS < 15 (0-50); Potassium 4.4 mmol/L (3.4-5.1); Sodium 135 mmol/L (137-145)
[2019-02-25 06:04] LABS: Procalcitonin 8.33 ng/mL (<0.5)
[2019-02-25] MEDS: PANTOPRAZOLE 20 MG TABLET PO (06:41)
[2019-02-25] MEDS: TAMSULOSIN 0.4 MG CAPSULE PO (08:29)
[2019-02-25] MEDS: AMIODARONE 200 MG TABLET 400 MG PO (08:29)
--- NOTE | 2019-02-25 09:14 | CM.DPC ---
Addendum entered by Shruthi James LPN 02/25/19 15:20: See now that Dr. Guzman has decided to d/c pt to home today. CHELSI Prescott states that his sister is driving him home. Clinic followup planned. Original Note: DCP: continued: Met now with pt as planned after review of Dr. Guzman's progress note of last night. Introduced self and role. Pt clarifies his living situation: he lives in an apt in [place], has 2 steps to the entry. He does live alone, drives. Uses bilateral crutches at baseline and has for a long time after undergoing a knee and hip replacement. He says he has no difficulty with this and manages his steps with ease. He did drive his car the day of his admission to the cardiology office and will likely drive home at d/c. Pt has been self-cathing for years due to a childhood illness>neurogenic bladder. He now has increasing BPH which complicates same. Dr. Guzman noted his acute/complex UTI and POC is in process. Assured pt DCP team would be checking in on him during rest of his stay to help with any d/c needs that may arise.
[2019-02-25] MEDS: CARVEDILOL 12.5 MG TABLET PO (09:44)
[2019-02-25] MEDS: LOSARTAN 25 MG TABLET 12.5 MG PO (09:45)
--- NOTE | 2019-02-25 11:02 | P.DS_ITS ---
History of Present Illness History of Present Illness Date Patient Seen: 02/23/19 Chief complaint: 'my heart' Narrative: Written by Dr. 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 Patient says starting last night he began to feel some palpitations in his wrist and abdomen, and some mild dizziness with exertion, but did not seek medical attention because he had a cardiology appointment this morning. When he saw his fixture builder, the EKG in the clinic showed a heart rate of 146, and that he was in a flutter. He was sent to the emergency room for further management. He denies any recent fevers, chills. He has had no chest pain, nausea, vomiting, diaphoresis, orthopnea, or lower extremity edema. He feels very well other than the palpitations noted above. In the emergency room, his EKG showed a flutter with a rate of 144, and metoprol ol IV was attempted. He was started on amiodarone infusion but his a flutter continued with the rate in the 130s. This was in consultation with Dr. Del Rio. He did not improve right away, so he was admitted to the ICU for continued amiodarone infusion and possible diltiazem infusion as well. I discussed the case with Dr. Del Rio ([phone]) who recommended to complete his amiodarone infusion, if he does not improve start diltiazem drip, and obtain an echocardiogram when his heart rate has improved. He will need to continue amiodarone outpatient in anticipation of a possible ablation in around 4 weeks. He further states that the patient was recently taken off of amiodarone to try and avoid long-term complications of this medication. Discharge Providers Provider Date of admission: 02/23/19 14:32 Discharge Date: 02/25/19 Primary care physician: La Zhou PA-C Discharge provider: Dinora Guzman DO Summary Hospital Course Discharge Diagnosis: 1. Atrial fibrillation/flutter with RVR, present on admission. Resolved. 2. Acute complicated urinary tract infection, secondary to chronic straight catheterization for BPH and neurogenic bladder, present on admission. Resolving. 3. Acute elevated troponin secondary to demand ischemia, present on admission. Resolved. 4. Tachyarrthmia induced cardiomyopathy, chronic, present on admission. Stable. 5. Hypertension, chronic, present on admission. Stable 6. Hyperlipidemia, chronic, present on admission. Stable. 7. BPH with urinary retention and history of neurogenic bladder requiring str aight catheterization, chronic, present on admission. Stable. Hospital Course: Josh Mcguire is a 68-year-old male with a past medical history significant for tachyarrythmia induced cardiomyopathy secondary to atrial fibrillation (atrial fibrillation EF 25% and then status post cardioversion with EF of 55%), hypertension, hyperlipidemia, peptic ulcer disease with previous GI bleed who presented from the cardiology clinic with palpitations. 1. Atrial fibrillation/flutter with RVR, present on admission. Resolved. -He has a known history of atrial fibrillation status post previous cardioversion. He is on coumadin for anticoagulation. Previous provider discussed the patient with the patient's fixture builder, Dr. Del Rio ,who recommended amiodarone infusion and if he does not convert or is not rate controlled to start diltiazem. He was recently stopped on amiodarone as an outpatient to try and avoid oysterman side effects of this medication. -Patient loaded with amiodarone bolus and completed amiodarone infusion. Started and continued amiodarone 400 mg twice daily for 1 week then plan to decrease to 200 daily thereafter per cardiology. Placed on diltiazem gtt for further rate control then titrated off as tolerated. Patient spontaneously converted to sinus rhythm at approximate 0600 on 02/24. -Continued cardiac medications including: Amiodarone 400 mg twice daily for 1 week then 200 mg daily thereafter, carvedilol 12.5 mg twice daily, furosemide 20 mg daily, losartan 12.5 mg twice daily, and spironolactone 12.5 mg daily. Some medication doses were adjusted due to low-normal blood pressure. -Held warfarin yesterday as INR supratherapeutic at 3.7. Continue to monitor INR daily and adjust as necessary. INR currently therapeutic at 2.4. Resumed warfarin at time of discharge at decreased doses (4 mg / and 2 mg ////) due to concurrent use of amiodarone and interference with metabolism. Plan for close follow-up at INR clinic beginning of next week. -Echocardiogram demonstrated reduced EF from 55% to 35% due to tachyarrhythmia. -Continued cardiac medications including: Amiodarone 400 mg twice daily for 1 week then 200 mg daily thereafter, carvedilol 12.5 mg twice daily, furosemide 20 mg daily, losartan 12.5 mg twice daily, and spironolactone 12.5 mg daily. Doses were adjusted as necessary due to low-normal blood pressure. -Repleted electrolytes as necessary with goal K= > 4.0 and Mg+ > 2.0. -Patient will need close outpatient follow-up with Dr. Roberson mid level provider in 3 weeks to plan for cardiac ablation. 2. Acute complicated urinary tract infection, secondary to chronic straight catheterization for BPH and neurogenic bladder, present on admission. Resolving. -Patient began having chills and rigors overnight on 02/23/2019 which prompted urinalysis. -Blood cultures have no growth to date. -WBC initially normal at 7.6 and procalcitonin initially normal <0.05. Likely have peaked at WBC 13.2 and procalcitonin 8.33. Continued to monitor daily. -Urine culture grew E. coli resistant to ampicillin, Unasyn, and Bactrim. -Continued ceftriaxone 2 g IV daily pending culture and sensitivities and discharged on cefdinir 300 mg twice daily for 12 days to complete total 14 day antibiotic course. -Recommend close follow-up with outpatient urologist to discuss UTI prophylaxis as patient has recurrent UTIs with E coli that is becoming increasingly resistant. 3. Acute elevated troponin secondary to demand ischemia, present on admission. Resolved. -Secondary to atrial fibrillation/flutter with RVR. -Initial troponin 0.079. Peaked at 0.103. Trended down to 0.077. Continued to trend until downward trending then discontinued. 4. Tachyarrthmia induced cardiomyopathy, chronic, present on admission. Stable. -Echocardiogram demonstrated reduced EF from 55% to 35% due to tachyarrhythmia. -Continued cardiac medications including: Amiodarone 400 mg twice daily for 1 week then 200 mg daily thereafter, carvedilol 12.5 mg twice daily, furosemide 20 mg daily, losartan 12.5 mg twice daily, and spironolactone 12.5 mg daily. Doses adjusted due to low-normal blood pressure. -Continued cardiac medications including: Amiodarone 400 mg twice daily for 1 week then 200 mg daily thereafter, carvedilol 12.5 mg twice daily, furosemide 20 mg daily, losartan 12.5 mg twice daily, and spironolactone 12.5 mg daily. Doses were adjusted as necessary due to low-normal blood pressure. 5. Hypertension, chronic, present on admission. Stable -Initially held carvedilol and losartan due to anti-arrhythmic and rate control medications as above. -Continued cardiac medications including: Amiodarone 400 mg twice daily for 1 week then 200 mg daily thereafter, carvedilol 12.5 mg twice daily, furosemide 20 mg daily, losartan 12.5 mg twice daily, and spironolactone 12.5 mg daily. Doses were adjusted as necessary due to low-normal blood pressure. 6. Hyperlipidemia, chronic, present on admission. Stable. -Continued atorvastatin 20 mg daily at bedtime. 7. BPH with urinary retention and history of neurogenic bladder requiring straight catheterization, chronic, present on admission. Stable. -Patient with history of intermittent neurogenic bladder for decades due to encephalitis as child which is questionable and concerned for BPH progressing. Recommend follow-up with outpatient urologist. -Continued home tamsulosin 0.4 mg daily. Exam Vital Signs (past 8 hours): - 02/25/19 03:10 02/25/19 04:34 02/25/19 05:10 Temperature 98.8 F Pulse Rate 64 74 Respiratory Rate 19 20 Blood Pressure 99/84 122/61 Pulse Oximetry 96 96 02/25/19 08:00 02/25/19 09:00 02/25/19 09:44 Temperature 99.0 F Pulse Rate 85 93 H Respiratory Rate 24 Blood Pressure 126/61 134/74 Pulse Oximetry 95 97 02/25/19 09:45 Temperature Pulse Rate Respiratory Rate Blood Pressure 134/74 Pulse Oximetry Oxygen Delivery Method Room Air Oxygen Flow Rate 0 Narrative Exam Narrative: General: Older gentleman sitting in bed and in no acute distress, well- developed, well-nourished, appropriately interactive. HEENT: Normocephalic, atraumatic. External ears without defect. Pupils equal, round, and reactive to light. Anicteric sclerae, moist conjunctivae, and no lid lag. Oropharynx free of erythema and cobble stoning with moist mucosa. Poor dentitiion. Neck: Supple with full range of motion. No jugular venous distension. No lymphadenopathy or thyromegaly. Cardiovascular: Regular rate and rhythm without murmurs, rubs, or gallops appreciated Pulmonary: Clear to auscultation bilaterally without crackles, wheezes, or rhonchi. Normal respiratory effort without use of accessory muscles. Abdomen: Soft, bowel sounds present, nontender, nondistended. No hepatosplenomegaly or masses appreciated. Suprapubic tenderness resolved. Extremities: No clubbing, cyanosis, or edema. Skin: Normal temperature, turgor, and texture; no rash, ulcers, or subcutaneous nodules appreciated. Neurological: Cranial nerves grossly intact. Psychiatric: Normal mood and affect. Alert and oriented to person, place, and time. Objective Labs Result Diagrams: 02/25/19 04:44 02/25/19 04:44 Labs: Laboratory Results - last 24 hr 02/24/19 02/25/19 02/25/19 12:06 04:44 04:44 WBC RBC Hgb Hct MCV MCH MCHC RDW Plt Count Neut % (Auto) Lymph % (Auto) Travis % (Auto) Eos % (Auto) Baso % (Auto) Neut # (Auto) Lymph # (Auto) Travis # (Auto) Eos # (Auto) Baso # (Auto) PT 28.8 H D INR 2.4 H Sodium Potassium Chloride Carbon Dioxide BUN Creatinine Estimated GFR BUN/Creatinine Ratio Glucose Calcium Magnesium Troponin I 0.077 H Procalcitonin 8.33 H 02/25/19 02/25/19 02/25/19 04:44 04:44 04:44 WBC 13.2 H D RBC 4.11 L Hgb 13.0 L Hct 39.0 L MCV 94.9 MCH 31.7 MCHC 33.4 RDW 15.6 H Plt Count 124 L Neut % (Auto) 87.6 H Lymph % (Auto) 5.0 L Travis % (Auto) 6.0 Eos % (Auto) 1.1 L Baso % (Auto) 0.3 Neut # (Auto) 22368 H Lymph # (Auto) 700 L Travis # (Auto) 800 Eos # (Auto) 100 Baso # (Auto) 0 PT INR Sodium 135 L Potassium 4.4 Chloride 105 Carbon Dioxide 24 BUN 31 H Creatinine 1.30 H Estimated GFR 55.1 L BUN/Creatinine Ratio 23.8 H Glucose 93 Calcium 8.7 Magnesium 2.2 Troponin I Procalcitonin Discharge Plan Discharge Plan Patient Disposition: Home Discharge comment: You are being discharged home. You have an E coli UTI and have been prescribed cefdinir 300 mg twice daily for 12 additional days to complete your antibiotic course. Please follow up with your PCP, Kelly Zhou, at your scheduled appointment regarding your hospitalization. Please try to catheterize yourself more frequently and do not really use catheters. Please follow-up with your urologist regarding your chronic UTIs as your E coli is becoming more resistant to antibiotic therapy. Continue your cardiac medications of which some have been adjusted: Carvedilol 12.5 mg twice daily, losartan 12.5 mg twice daily, spironolactone 12.5 mg daily, furosemide 20 mg daily, warfarin 4 mg Thursday and Thursday and 2 mg every other day of the week. You have been restarted on amiodarone 400 mg twice daily for 1 week (5 days left and 1 dose tonight) then 200 mg daily thereafter. Please follow-up with Dr. Roberson midlevel provider in 3 weeks in regard to management of your atrial fibrillation and possible ablation. Discharge Med Rec/Prescriptions Prescriptions: New amiodarone 200 mg Tablet 400 mg PO BIDWM 6 Days Qty: 11 RF: 0 amiodarone 200 mg tablet 200 mg PO DAILY Qty: 30 RF: 0 cefdinir 300 mg capsule 300 mg PO BID 12 Days Qty: 24 RF: 0 Continued (DME) Disabled Parking Placard Qty: 1 RF: 0 cholecalciferol (vitamin D3) [Vitamin D3] 2,000 unit capsule 4,000 unit PO DAILY Qty: 0 RF: 0 furosemide 20 mg tablet 20 mg PO DAILY Qty: 90 RF: 1 atorvastatin [Lipitor] 20 mg tablet 20 mg PO BEDTIME Qty: 90 RF: 3 ferrous sulfate 325 mg (65 mg iron) tablet 325 mg PO MOTUWETHFR RF: 0 polyethylene glycol 3350 [Miralax] 17 gram/dose powder 17 gram PO DAILY Qty: 119 RF: 0 spironolactone 25 mg tablet 12.5 mg PO DAILY RF: 0 tamsulosin [Flomax] 0.4 mg capsule 0.4 mg PO DAILY RF: 0 acetaminophen 500 mg capsule 1,000 mg PO Q6H PRN (Reason: pain) RF: 0 omeprazole 20 mg capsule,delayed release(DR/EC) 20 mg PO BID RF: 0 Changed carvedilol 12.5 mg tablet 12.5 mg PO BID Qty: 60 RF: 0 warfarin 3 mg Tablet 2 mg PO SUTUWETHSA Qty: 30 RF: 0 warfarin 3 mg tablet 4 mg PO MOFR Qty: 30 RF: 0 losartan 25 mg tablet 12.5 mg PO BID Qty: 0 RF: 0 Discontinued Shingrix (PF) 50 mcg/0.5 mL suspension for reconstitution 50 mcg IM ONCE Qty: 1 RF: 1 Follow up/Referrals: La Zhou PA-C [Primary Care Provider] - 1 Week ( INR CHECK AT 3:45 PM- PLEASE BE THERE @ 3:30 PM FOR SIGN IN APPT TIME IS 12:00- PLEASE BE THERE @ 11:40 FOR SIGN IN) Mason Erwin ARNP [Non-Staff] - 03/10/19 11:10 am (CARDIOLOGY FOLLOW-UP APPOINTMENT PLEASE ARRIVE AT 10:55 AM FOR 11:10 AM APPT. ) Provider Discharge Instructions Diet: Diet as Tolerated, Low-fat, Low-sodium and Low-cholesterol Activity: Activity as tolerated Visit Report/Discharge Packet Instructions: How to Care for Your Garcia Catheter -- Male, How to Catheterize Yourself -- for Men, DI for Atrial Flutter, DI for Atrial Fibrillation, DI for Urinary Tract Infection (UTI) Discharge Data Primary Care Provider: La Zhou
--- NOTE | 2019-02-25 12:11 | PC.NURSE ---
Addendum entered by Kenyon Valerio R.N. 02/25/19 14:36: Dr. Guzman made aware of INR check thursday. Original Note: INR Check scheduled for Thursday due to clinic closure on Thursday and no INR checks on Thursday.
[2019-02-25] MEDS: SPIRONOLACTONE 25 MG TABLET 12.5 MG PO (13:00)
--- NOTE | 2019-02-25 13:42 | PC.NURSE ---
Addendum entered by Kenyon Valerio R.N. 02/25/19 14:48: Called to pt's sister per pt's request to see what time she would be here to pick pt up. Pt states he didn't tell her a specific time, only any time after 2. No answer. Left message to return phone call. Original Note: Pt to d/c home per order. Pt states sister will be driving him home. Removed PIV x2 with cath tip intact. Removed aldana catheter. Provided jhon care as pt had small amount of sang drainage at meatus. Pt tolerated well. Provided d/c packet and educational materials. Reviewed dx, meds, side effects, dosage, next dose due. Educated to monitoring bp/hr. Educated pt re when to seek emergency care. Reviewed straight cath technique. Reinforced recommendation by Dr. Guzman to increase number of times for straight cath per day. Pt verbalizes understanding. Pt feels confident about caring for himself at home. Reviewed f/u appt dates/times. Awaiting sister to pick him up for d/c.
--- NOTE | 2019-02-25 17:24 | PC.NURSE ---
Discharge Note Pt A&O, VSS, no complaints of pain or discomfort. Pt given discharge teaching by day shift note. PIV removed. Friend to pickle cutter pt. Pt taken to POV via wheelchair by TAILOR FITTER. All belongings and discharge information with pt.
== END 2019-02-25 16:20 | disposition home or self-care (01) | DRG 281 ==
LOC: ED 14:15 → ICU 15:59
PROVIDERS: Internal Medicine; Nurse Practitioner Adult Health; Admitting Provider Internal Medicine; Emergency Provider Emergency Medicine; Family Provider Physician Assistant; PCP Physician Assistant; Visit Provider Internal Medicine
DX: I48.92 Unspecified atrial flutter (principal); I21.A1 Myocardial infarction type 2; N39.0 Urinary tract infection, site not specified; N17.9 Acute kidney failure, unspecified; I42.8 Other cardiomyopathies; I10 Essential (primary) hypertension; N40.1 Benign prostatic hyperplasia with lower urinary tract symptoms; R33.8 Other retention of urine; I48.91 Unspecified atrial fibrillation; Z79.01 Long term (current) use of anticoagulants; N31.9 Neuromuscular dysfunction of bladder, unspecified; B96.20 Unspecified Escherichia coli [E. coli] as the cause of diseases classified elsewhere
CPT/HCPCS: 36415; 36591; 71045; 80048; 80053; 80061; 81001; 82550; 82553; 82962; 83036; 83605; 83690; 83735; 84145; 84443; 84484; 85025; 85610; 85730; 87040; 87077; 87086; 87186; 87797; 93005; 93041; 93306; 94760; 96365; 96366; 96367; 96375; 99285; J0282; J0696; J3480

== ENCOUNTER → 2019-06-13 12:42 | Outpatient (CLI) | payer MEDICARE, MEDICAID, SELFPAY ==
[2019-02-23 15:52] VITALS: BMI 25.3
[2019-06-13 13:23] LABS: BUN Creatinine Ratio 22.2 (6-22); Blood Urea Nitrogen 20 mg/dL (9-20); Calcium 9.6 mg/dL (8.4-10.2); Carbon Dioxide 30 mmol/L (22-32); Chloride 104 mmol/L (98-107); Cholesterol 124 mg/dL (140-199); Estimated Glomerular Filt Rate > 60.0 mL/min (>60); Glucose 76 mg/dL (80-110); HDL Cholesterol 57 mg/dL (40-60); HEMOLYSIS < 15 (0-50); LDL Cholesterol Calculated 52 mg/dL (<100); Sodium 140 mmol/L (137-145); Triglycerides 73 mg/dL (35-150)
[2019-06-13 13:36] LABS: Add Manual Diff / Slide Review NO; Basophils Absolute Auto 100 /uL (0-100); Basophils Percent Auto 0.8 % (0-2); Eosinophils Absolute Auto 400 /uL (0-450); Eosinophils Percent Auto 2.3 % (2-4); Hematocrit 36.4 % (41-53); Hemoglobin 12.8 g/dL (13.5-17.5); Lymphocytes Absolute Auto 1000 /uL (1100-4500); Lymphocytes Percent Auto 6.3 % (25-40); Mean Corpuscular HGB Conc 35.1 % (30-36); Mean Corpuscular Hemoglobin 33.5 PG (26-34); Mean Corpuscular Volume 95.3 fL (80-100); Monocytes Absolute Auto 1000 /uL (0-900); Monocytes Percent Auto 6.3 % (3-14); Neutrophils Absolute Auto 13100 /uL (1500-7000); Neutrophils Percent Auto 84.3 % (50-75); Platelet Count 315 X10^3/uL (150-400); Red Blood Cell Count 3.82 X10^6/uL (4.5-5.9); Red Cell Distribution Width 13.9 % (11.6-14.8); White Blood Cell Count 15.6 X10^3/uL (4.5-11.0)
[2019-06-13 13:52] LABS: Prostate Specific Antigen 6.54 ng/mL (0.10-4.00)
[2019-06-13 14:26] LABS: Thyroid Stimulating Hormone 2.02 uIU/mL (0.47-4.68)
== END ==
PROVIDERS: Family Provider Specialist; PCP Physician Assistant; Visit Provider Nurse Practitioner
DX: I42.8 Other cardiomyopathies (principal); I10 Essential (primary) hypertension; E78.5 Hyperlipidemia, unspecified; R71.0 Precipitous drop in hematocrit; Z79.899 Other long term (current) drug therapy
CPT/HCPCS: 36415; 80048; 80061; 84153; 84443; 85025

== ENCOUNTER → 2019-06-16 09:50 | Outpatient (CLI) | payer MEDICARE, MEDICAID, SELFPAY ==
[2019-02-23 15:52] VITALS: BMI 25.3
--- NOTE | 2019-06-16 | DI.RAD.S_ITS ---
PROCEDURE: XR CHEST 2V INDICATIONS: amiodarone therapy TECHNIQUE: 2 views of the chest were acquired. COMPARISON: [facility], CR, XR CHEST 1V, 02/23/2019, 10:13. [facility], CR, XR CHEST 2V, 10/06/2018, 10:09. FINDINGS: Surgical changes and devices: None. Lungs and pleura: Lungs are clear. No pleural effusions or pneumothorax. Mediastinum: Mediastinal contours are normal. Heart size is normal. Bones and chest wall: No suspicious bony abnormalities. Soft tissues appear unremarkable. IMPRESSION: No acute cardiopulmonary disease. Dictated by: Mason Godinez M.D. on 06/16/2019 at 10:32 Approved by: Mason Godinez M.D. on 06/16/2019 at 10:32
== END ==
PROVIDERS: Family Provider Specialist; PCP Physician Assistant; Visit Provider Internal Medicine Cardiovascular Disease
DX: Z79.899 Other long term (current) drug therapy (principal)
CPT/HCPCS: 71046

== ENCOUNTER → 2019-08-12 10:59 | Outpatient (CLI) | payer MEDICARE, MEDICAID, SELFPAY ==
[2019-02-23 15:52] VITALS: BMI 25.3
--- NOTE | 2019-08-12 | DI.US.S_ITS ---
PROCEDURE: US RENAL COMPLETE INDICATIONS: NEUROMUSCULAR DYSFUNCTION OF BLADDER, UNSPECIFIED TECHNIQUE: Real-time scanning was performed of the kidneys and bladder, with image documentation. COMPARISON: [facility], CT, CT ABDOMEN PELVIS WO/W CON, 02/03/2019, 13:28. [facility], US, RENAL COMPLETE, 03/19/2012, 8:14. FINDINGS: Kidneys: Kidneys are normal in size. Right kidney measures 12.5 cm long; left kidney measures 13 cm long. Right renal cortical thickness is 1.6 cm; left renal cortical thickness is 1.6 cm. Renal cortical echotexture is normal. Dilated left renal calyces are seen. No nephrolithiasis. No suspicious solid mass lesions. Multiple bilateral renal cysts are seen. The largest is seen on the left measuring 8.8 x 4.6 x 6.9 cm. Bladder: Pre-void bladder volume is 131 mL. Despite a bladder volume, the patient had no urge to void. No postvoid residual measurement was acquired. Pre-void images demonstrate no intraluminal masses or stones. On pre-void images, both ureteral jets are noted with color Doppler interrogation. (Of note, ureteral jets may not be detectable in up to 25% of cases due to insufficient differences in specific gravity between ureteral and bladder urine). Miscellaneous: No free pelvic fluid. IMPRESSION: Urinary retention, with the patient expressing no urge to void, despite a bladder volume of 131 cc. Bilateral renal cysts are seen, with the largest on the left measuring up to 8.8 cm. Dilated left renal calyces can be seen. Dictated by: Derrick Caraballo M.D. on 08/12/2019 at 12:59 Approved by: Derrick Caraballo M.D. on 08/12/2019 at 13:06
== END ==
PROVIDERS: Family Provider Specialist; PCP Student in an Organized Health Care Education/Training Program; Referring Provider Physician Assistant; Visit Provider Physician Assistant
DX: N31.9 Neuromuscular dysfunction of bladder, unspecified (principal); N28.1 Cyst of kidney, acquired; R33.9 Retention of urine, unspecified; N28.89 Other specified disorders of kidney and ureter
CPT/HCPCS: 76770

== ENCOUNTER → 2019-09-02 10:24 | Outpatient (CLI) | payer MEDICARE, MEDICAID, SELFPAY ==
[2019-02-23 15:52] VITALS: BMI 25.3
[2019-09-02 12:05] LABS: Alanine Aminotransferase 24 IU/L (<50); Albumin 4.1 g/dL (3.5-5.0); Albumin Globulin Ratio 1.5 (1.0-2.8); Alkaline Phosphatase 51 U/L (38-126); Aspartate Aminotransferase 29 IU/L (17-59); BUN Creatinine Ratio 25.6 (6-22); Bilirubin Total 0.7 mg/dL (0.2-1.3); Blood Urea Nitrogen 23 mg/dL (9-20); Calcium 9.7 mg/dL (8.4-10.2); Carbon Dioxide 27 mmol/L (22-32); Chloride 108 mmol/L (98-107); Estimated Glomerular Filt Rate > 60.0 mL/min (>60); Globulin 2.7 g/dL (1.7-4.1); Glucose 82 mg/dL (80-110); HEMOLYSIS < 15 (0-50); Potassium 4.4 mmol/L (3.4-5.1); Sodium 141 mmol/L (137-145); Total Protein 6.8 g/dL (6.3-8.2)
[2019-09-02 12:36] LABS: Thyroid Stimulating Hormone 1.75 uIU/mL (0.47-4.68)
== END ==
PROVIDERS: Family Provider Specialist; PCP Student in an Organized Health Care Education/Training Program; Referring Provider Internal Medicine Cardiovascular Disease; Visit Provider Internal Medicine Cardiovascular Disease
DX: Z79.899 Other long term (current) drug therapy (principal); I51.9 Heart disease, unspecified
CPT/HCPCS: 36415; 80053; 84443

== ENCOUNTER 2019-10-20 22:08 | Emergency (ER) | payer MEDICARE, MEDICAID, SELFPAY ==
[2019-02-23 15:52] VITALS: BMI 25.3
[2019-10-20 22:15] VITALS: BP 221/94; PULSE 96; RESP 22; TEMP 39.3; O2SAT 94; BMI 26.6
--- NOTE | 2019-10-20 22:23 | DI.RAD.S_ITS ---
PROCEDURE: XR CHEST 1V INDICATIONS: suspected sepsis TECHNIQUE: One view of the chest was acquired. COMPARISON: [facility], CR, XR CHEST 2V, 10/06/2018, 10:09. [facility], CR, XR CHEST 1V, 02/23/2019, 10:13. FINDINGS: Surgical changes and devices: None. Lungs and pleura: Lungs are clear. No pleural effusions or pneumothorax. Mediastinum: Mediastinal contours appear normal. Heart size is normal. Bones and chest wall: No suspicious bony lesions. Overlying soft tissues appear unremarkable. IMPRESSION: No acute cardiopulmonary disease process. Dictated by: Aye Arita MD, PhD on 10/21/2019 at 8:22 Approved by: Aye Arita MD, PhD on 10/21/2019 at 8:22
[2019-10-20 22:51] LABS: Add Manual Diff / Slide Review NO; Basophils Absolute Auto 0 /uL (0-100); Basophils Percent Auto 0.3 % (0-2); Eosinophils Absolute Auto 100 /uL (0-450); Eosinophils Percent Auto 0.5 % (2-4); Hematocrit 40.2 % (41-53); Hemoglobin 13.6 g/dL (13.5-17.5); Lymphocytes Absolute Auto 300 /uL (1100-4500); Lymphocytes Percent Auto 2.1 % (25-40); Mean Corpuscular HGB Conc 33.9 % (30-36); Mean Corpuscular Hemoglobin 33.1 PG (26-34); Mean Corpuscular Volume 97.6 fL (80-100); Monocytes Absolute Auto 200 /uL (0-900); Monocytes Percent Auto 1.5 % (3-14); Neutrophils Absolute Auto 14000 /uL (1500-7000); Neutrophils Percent Auto 95.6 % (50-75); Platelet Count 183 X10^3/uL (150-400); Red Blood Cell Count 4.11 X10^6/uL (4.5-5.9); Red Cell Distribution Width 14.4 % (11.6-14.8); White Blood Cell Count 14.7 X10^3/uL (4.5-11.0)
[2019-10-20 22:59] LABS: INR 2.6 (0.9-1.3); Prothrombin Time 29.6 SECONDS (10.1-12.7)
[2019-10-20 23:02] LABS: Lactate (Lactic Acid) 1.3 mmol/L (0.7-2.1); PTT Partial Thromboplastin Tim 33 SECONDS (26.4-36.2)
[2019-10-20 23:05] LABS: Alanine Aminotransferase 25 IU/L (<50); Albumin 4.2 g/dL (3.5-5.0); Albumin Globulin Ratio 1.4 (1.0-2.8); Alkaline Phosphatase 58 U/L (38-126); Aspartate Aminotransferase 28 IU/L (17-59); BUN Creatinine Ratio 25.3 (6-22); Bilirubin Total 0.9 mg/dL (0.2-1.3); Blood Urea Nitrogen 23 mg/dL (9-20); Calcium 9.5 mg/dL (8.4-10.2); Carbon Dioxide 27 mmol/L (22-32); Chloride 105 mmol/L (98-107); Estimated Glomerular Filt Rate > 60.0 mL/min (>60); Glucose 98 mg/dL (80-110); HEMOLYSIS < 15 (0-50); Lipase 55 U/L (23-300); Potassium 3.9 mmol/L (3.4-5.1); Sodium 138 mmol/L (137-145); Total Protein 7.2 g/dL (6.3-8.2)
[2019-10-20 23:08] VITALS: BP 165/84; PULSE 87; RESP 20; O2SAT 93
[2019-10-20 23:22] LABS: Procalcitonin < 0.05 ng/mL (<0.5)
--- NOTE | 2019-10-20 23:39 | ED.GENADULT ---
HPI - General Adult General Chief complaint: Fever Stated complaint: shivers,head cold, cough Time Seen by Provider: 10/20/19 22:24 Source: patient Mode of arrival: Family Vehicle Limitations: no limitations History of Present Illness HPI narrative: Patient is a 69-year-old male who arrives to the emergency department for what he states is several hours fevers and chills and not feeling well. States he also had a cough and shortness of breathe. Has had a sore throat for the past couple days. No rashes. No recent travel. No sick contacts. Took some Tylenol earlier today for his symptoms. Is also describing lower abdominal pain. Patient does self catheterization secondary to urinary retention issues. Has had urinary tract infections in the past. Is on prophylactic antibiotics. No chest pain. Patient arrived by private vehicle. Related Data Home Medications Medication Instructions Recorded Confirmed cholecalciferol (vitamin D3) 50 4,000 unit PO DAILY #0 cap 10/12/18 10/07/19 mcg (2,000 unit) capsule ferrous sulfate 325 mg (65 mg 325 mg PO MOTUWETHFR tab 12/21/18 10/07/19 iron) tablet acetaminophen 1,000 mg PO Q6H PRN 02/23/19 10/07/19 losartan 25 mg tablet 25 mg PO BID tab 07/20/19 10/07/19 methenamine hippurate 1 gram tablet 1 gram PO BID 10/07/19 10/07/19 Previous Rx's Medication Instructions Recorded polyethylene glycol 3350 [Miralax] 17 gram PO DAILY #119 gram 11/25/18 furosemide 20 mg tablet 20 mg PO DAILY #90 tab 02/02/19 atorvastatin 20 mg tablet 20 mg PO BEDTIME #90 tab 02/21/19 amiodarone 200 mg PO DAILY #30 tab 02/25/19 carvedilol 12.5 mg PO BID #60 tab 02/25/19 warfarin 2 mg tablet See Rx Instructions PO DAILY #120 03/28/19 tab warfarin 1 mg tablet See Rx Instructions PO 5XW #200 tab 03/30/19 tamsulosin 0.4 mg capsule 0.4 mg PO DAILY #90 cap 05/03/19 omeprazole 20 mg capsule,delayed 20 mg PO BID #180 cap 07/29/19 release spironolactone 25 mg tablet 25 mg PO DAILY #90 tab 10/07/19 cephalexin 500 mg PO TID 14 Days #42 cap 10/21/19 Allergies Allergy/AdvReac Type Severity Reaction Status Date / Time ciprofloxacin Allergy Severe BREATHING Verified 10/07/19 09:18 PROBLEMS, CHILLS, SHAKES alendronate sodium AdvReac Severe GI bleed Verified 10/07/19 09:18 [ALENDRONATE SODIUM] cephalexin AdvReac Mild Headache Verified 10/07/19 09:18 morphine AdvReac Mild ABD PAIN Verified 10/07/19 09:18 Review of Systems Constitutional Constitutional: Reports chills, Reports fever(s) and Reports lethargy ENT Ears, Nose, Mouth, and Throat: Reports sinus pressure and Reports sore throat Cardiovascular Cardiovascular: Denies chest pain and Reports dyspnea Respiratory Respiratory: Reports chest congestion, Reports cough and Reports dyspnea Gastrointestinal Gastrointestinal: Reports abdominal pain, Denies nausea and Denies vomiting Genitourinary Comments: Uses self catheters for urination Musculoskeletal Musculoskeletal: Denies myalgias and Denies arthralgias Integumentary/Breasts Skin/Breast: Denies lesions and Denies rash Neurologic Neurologic: Denies behavioral changes Psychiatric Psychiatric: Denies behavioral changes Hematologic/Lymphatic Hematologic/Lymphatic: Denies easy bleeding and Denies easy bruising Allergic/Immunologic Allergic/Immunologic: Denies urticaria Patient History Medical History Anemia (Chronic Unknown) Atrial fibrillation (Chronic 06/2017) Cardiomyopathy (Chronic 06/2017) CHF (congestive heart failure) (Chronic ~06/2017) Duodenal ulcer (Resolved Unknown) Encephalopathy (Resolved Unknown) Gastric ulcer (Resolved Unknown) Gastritis (Resolved Unknown) Hyperlipemia (Chronic Unknown) Hypertension (Chronic Unknown) Neurogenic bladder (Chronic Unknown) Neuropathy (Chronic Unknown) Osteoarthritis (Chronic Unknown) Osteopenia (Chronic 03/2016) Peptic ulcer (Resolved Unknown) Pyelonephritis (Acute ~2011) Sepsis (Acute) Social History household members: none Smoking Status: Never smoker second hand exposure: No alcohol intake: never substance use type: does not use Smoking Status: Never smoker alcohol intake frequency: other Substance Use Type: does not use Exam Initial Vital Signs Initial Vital Signs: Vital Signs Temperature 102.8 F H 10/20/19 22:15 Pulse Rate 96 H 10/20/19 22:15 Respiratory Rate 22 10/20/19 22:15 Blood Pressure 221/94 H 10/20/19 22:15 Pulse Oximetry 94 10/20/19 22:15 Const General: cooperative, comfortable and well developed Limitations: mental status not altered HENMT Head: normal to inspection and normocephalic Ears: TM's normal bilaterally Resp Effort & Inspection: normal respiratory effort Auscultation: clear to auscultation bilaterally Cardio Rate: regular rate Rhythm: regular rhythm GI Inspection: non-distended Palpation: soft and tender (Lower abdomen) General: No CVA tenderness Back/Spine/Pelvis Back: No CVA tenderness Skin Lesions: no lesions Rashes: no rashes Neuro General: alert, awake and oriented x3 Cognition: normal cognition Speech: speech normal Extrem General: capillary refill normal Psych Appearance: grossly normal and well kempt Scores GCS Peter coma scale eye opening: Spontaneous [place] coma scale verbal response: Orientated [place] coma scale motor response: Obey commands [place] coma scale total score: 15 Course Orders Ordered: ED Orders 10/20/19 22:23 XR chest 1V Stat 10/20/19 22:30 Complete Blood Count AUTO DIFF Stat Comprehensive Metabolic Panel Stat Lactate (Lactic Acid) Stat Lipase Stat Partial Thromboplastin Time Stat Procalcitonin Stat Prothrombin Time INR Stat 10/20/19 22:38 EKG-12 Lead Stat 10/20/19 23:04 Blood Culture Stat 10/20/19 23:40 CT abdomen pelvis w con Stat 10/21/19 00:30 UA Complete [Urinalysis and Microscopic] Stat Urine Culture Stat Discontinued Medications Acetaminophen (Tylenol) 650 mg PO NOW ONE Stop: 10/20/19 23:56 Last Admin: 10/21/19 00:04 Dose: 650 mg Documented by: MMCFARL Sodium Chloride (Normal Saline 0.9%) 1,000 mls @ 1,000 mls/hr IV BOLUS ONE Stop: 10/20/19 23:22 Last Infusion: 10/21/19 02:00 Dose: 1,000 mls/hr Documented by: Admin: 10/21/19 00:47 Dose: 1,000 mls/hr Documented by: CTRGEORGETTE Ceftriaxone Sodium/Dextrose (Rocephin) 1 gm in 50 mls @ 100 mls/hr IV NOW ONE Stop: 10/21/19 01:39 Last Infusion: 10/21/19 02:19 Dose: 100 mls/hr Documented by: Admin: 10/21/19 01:23 Dose: 100 mls/hr Documented by: HOLLIE Vital Signs Vital signs: Vital Signs - 8 hr 10/20/19 22:15 10/20/19 23:08 10/21/19 00:33 Temperature 102.8 F H 98.5 F Pulse Rate 96 H 87 87 Respiratory Rate 22 20 16 Blood Pressure 221/94 H Blood Pressure [Right Arm] 165/84 H 138/76 Pulse Oximetry 94 93 95 10/21/19 01:00 10/21/19 01:31 10/21/19 02:35 Temperature 102.6 F H 99.9 F H Pulse Rate 90 81 Respiratory Rate 20 16 Blood Pressure 143/81 H Blood Pressure [Right Arm] 156/66 H Pulse Oximetry 96 96 Medical Decision Making Lab Data Lab results reviewed: Yes I reviewed the patient's lab results. Result diagrams: 10/20/19 22:30 10/20/19 22:30 Labs: Lab Results 10/20/19 10/20/19 10/20/19 Range/Units 22:30 22:30 22:30 WBC 14.7 H (4.5-11.0) X10^3/uL RBC 4.11 L (4.5-5.9) X10^6/uL Hgb 13.6 (13.5-17.5) g/dL Hct 40.2 L (41-53) % MCV 97.6 (80-100) fL MCH 33.1 (26-34) PG MCHC 33.9 (30-36) % RDW 14.4 (11.6-14.8) % Plt Count 183 (150-400) X10^3/uL Neut % (Auto) 95.6 H (50-75) % Lymph % (Auto) 2.1 L (25-40) % [place] % (Auto) 1.5 L (3-14) % Eos % (Auto) 0.5 L (2-4) % Baso % (Auto) 0.3 (0-2) % Neut # (Auto) 85409 H (8945-8175) /uL Lymph # (Auto) 300 L (0827-8601) /uL [place] # (Auto) 200 (0-900) /uL Eos # (Auto) 100 (0-450) /uL Baso # (Auto) 0 (0-100) /uL PT 29.6 H (10.1-12.7) SECONDS INR 2.6 H (0.9-1.3) APTT 33 D (26.4-36.2) SECONDS Sodium (137-145) mmol/L Potassium (3.4-5.1) mmol/L Chloride (98-107) mmol/L Carbon Dioxide (22-32) mmol/L BUN (9-20) mg/dL Creatinine (0.66-1.25) mg/dL Estimated GFR (>60) mL/min BUN/Creatinine Ratio (6-22) Glucose (80-110) mg/dL Lactate (0.7-2.1) mmol/L Calcium (8.4-10.2) mg/dL Total Bilirubin (0.2-1.3) mg/dL AST (17-59) IU/L ALT (<50) IU/L Alkaline Phosphatase (38-126) U/L Total Protein (6.3-8.2) g/dL Albumin (3.5-5.0) g/dL Globulin (1.7-4.1) g/dL Albumin/Globulin Ratio (1.0-2.8) Lipase (23-300) U/L Procalcitonin < 0.05 (<0.5) ng/mL Urine Color Urine Appearance Urine pH (4.5-8.0) Ur Specific [place] (1.000-1.035) Urine Protein (Negative) Urine Glucose (UA) (Negative) g/dL Urine Ketones (NEGATIVE) Urine Occult Blood (Negative) Urine Nitrate (Negative) Urine Bilirubin (NEGATIVE) Urine Urobilinogen (0.2) E.U./dL Ur Leukocyte Esterase (NEGATIVE) Urine RBC (0-5/HPF) Urine WBC (0-5/HPF) Urine Bacteria (None) Ur Culture Indicated? 10/20/19 10/20/19 10/21/19 Range/Units 22:30 22:30 00:30 WBC (4.5-11.0) X10^3/uL RBC (4.5-5.9) X10^6/uL Hgb (13.5-17.5) g/dL Hct (41-53) % MCV (80-100) fL MCH (26-34) PG MCHC (30-36) % RDW (11.6-14.8) % Plt Count (150-400) X10^3/uL Neut % (Auto) (50-75) % Lymph % (Auto) (25-40) % [place] % (Auto) (3-14) % Eos % (Auto) (2-4) % Baso % (Auto) (0-2) % Neut # (Auto) (1245-6256) /uL Lymph # (Auto) (8385-8234) /uL [place] # (Auto) (0-900) /uL Eos # (Auto) (0-450) /uL Baso # (Auto) (0-100) /uL PT (10.1-12.7) SECONDS INR (0.9-1.3) APTT (26.4-36.2) SECONDS Sodium 138 (137-145) mmol/L Potassium 3.9 (3.4-5.1) mmol/L Chloride 105 (98-107) mmol/L Carbon Dioxide 27 (22-32) mmol/L BUN 23 H (9-20) mg/dL Creatinine 0.91 (0.66-1.25) mg/dL Estimated GFR > 60.0 (>60) mL/min BUN/Creatinine Ratio 25.3 H (6-22) Glucose 98 (80-110) mg/dL Lactate 1.3 (0.7-2.1) mmol/L Calcium 9.5 (8.4-10.2) mg/dL Total Bilirubin 0.9 (0.2-1.3) mg/dL AST 28 (17-59) IU/L ALT 25 (<50) IU/L Alkaline Phosphatase 58 (38-126) U/L Total Protein 7.2 (6.3-8.2) g/dL Albumin 4.2 (3.5-5.0) g/dL Globulin 3.0 (1.7-4.1) g/dL Albumin/Globulin Ratio 1.4 (1.0-2.8) Lipase 55 (23-300) U/L Procalcitonin (<0.5) ng/mL Urine Color Yellow Urine Appearance Slightly cloudy Urine pH 6.5 (4.5-8.0) Ur Specific [place] 1.015 (1.000-1.035) Urine Protein Trace H (Negative) Urine Glucose (UA) Negative (Negative) g/dL Urine Ketones Negative (NEGATIVE) Urine Occult Blood 3+ H (Negative) Urine Nitrate Negative (Negative) Urine Bilirubin Negative (NEGATIVE) Urine Urobilinogen 0.2 (0.2) E.U./dL Ur Leukocyte Esterase 1+ H (NEGATIVE) Urine RBC 10-30/hpf H (0-5/HPF) Urine WBC 10-30/hpf H (0-5/HPF) Urine Bacteria Many (>30) H (None) Ur Culture Indicated? Specimen cultured Imaging Data CT scan - abdomen/pelvis: Radiologist's Impression: Motion affected study with findings most suggestive of left pyelonephritis. Moderate bilateral hydronephrosis most likely related to prominent urinary bladder distention Large left peripelvic cyst ECG Data Attestation: I personally reviewed and interpreted this ECG as follows: Prior ECG tracings: not available for review Interpretation: Atrial fibrillation Ventricular rate 107 LVH Normal QRS Normal QTC Nonspecific ST T wave changes MDM Narrative Medical decision making narrative: Patient is afebrile. Was tachycardic on his initial EKG. Has leukocytosis. Was not hypotensive. CT scan concerning for left-sided pyelonephritis. He was straight cathed here in the emergency department in the sample was sent to the lab which is concerning for urinary tract infection. Also had 700 cc of urine in his bladder at the time of the catheterization. Review of the patient's labs show that his prior urine cultures show E coli with resistance to Bactrim. Given his current use of warfarin I would like to stay away from [facility] so will send him home on Keflex for his pyelonephritis. I do suspect that this is the cause of his presenting symptoms. Was tolerating oral intake. I do not feel he needs admitted to the hospital for IV antibiotics. He was given a dose of IV Rocephin prior to discharge. Patient was also tested for COVID-19 given his presenting symptoms. He was informed this prior to discharge and we will call him for any positive or negative results. He was given return precautions and follow-up instructions. He expressed understanding and agreement plan. Discharge Plan Departure Patient Disposition: Home Clinical Impression: Pyelonephritis Discharge Date/Time: 10/21/19 02:35 Instructions: DI for Kidney Infection Activity Restrictions/Additional Instructions: Recommend that you stop taking the Methenamine Hippurate (hiprex) which is the antibiotic you are currently taking. Start taking the Keflex as directed. When the Keflex is finished start taking the Hiprex once again. Recommend that tomorrow you contact your urologist and also your primary provider for follow-up. Return to the emergency department for any new or worsening symptoms. We did test you for COVID-19. We will call you for any positive or negative results. Until then of recommend that you cover your cough, wash your hands frequently and limit your exposure to other individuals. Your prescription was electronically transmitted to [facility]'s Prescriptions: New cephalexin 500 mg capsule 500 mg PO TID 14 Days Qty: 42 RF: 0 No Action cholecalciferol (vitamin D3) [Vitamin D3] 2,000 unit capsule 4,000 unit PO DAILY Qty: 0 RF: 0 furosemide 20 mg tablet 20 mg PO DAILY Qty: 90 RF: 1 atorvastatin [Lipitor] 20 mg tablet 20 mg PO BEDTIME Qty: 90 RF: 3 warfarin 2 mg tablet See Rx Instructions PO DAILY Qty: 120 RF: 2 warfarin 1 mg tablet See Rx Instructions PO 5XW Qty: 200 RF: 0 tamsulosin [Flomax] 0.4 mg capsule 0.4 mg PO DAILY Qty: 90 RF: 3 omeprazole 20 mg capsule,delayed release(DR/EC) 20 mg PO BID Qty: 180 RF: 0 losartan 25 mg tablet 25 mg PO BID RF: 0 ferrous sulfate 325 mg (65 mg iron) tablet 325 mg PO MOTUWETHFR RF: 0 methenamine hippurate [Hiprex] 1 gram tablet 1 gram PO BID RF: 0 spironolactone 25 mg tablet 25 mg PO DAILY Qty: 90 RF: 3 polyethylene glycol 3350 [Miralax] 17 gram/dose powder 17 gram PO DAILY Qty: 119 RF: 0 acetaminophen 500 mg capsule 1,000 mg PO Q6H PRN (Reason: pain) RF: 0 amiodarone 200 mg tablet 200 mg PO DAILY Qty: 30 RF: 0 carvedilol 12.5 mg tablet 12.5 mg PO BID Qty: 60 RF: 0 Referrals: Maykel Bullock MD [Primary Care Provider] -
--- NOTE | 2019-10-20 23:40 | DI.CT.S_ITS ---
PROCEDURE: CT ABDOMEN PELVIS W CON INDICATIONS: Left lower quadrant abdominal pain TECHNIQUE: After the administration of intravenous contrast, 5 mm thick sections acquired from the diaphragm to the symphysis. 5 mm coronal and sagittal reformats were acquired. For radiation dose reduction, the following was used: automated exposure control, adjustment of mA and/or kV according to patient size. COMPARISON: [facility], CT, CT ABDOMEN PELVIS W CON, 01/24/2018, 12:35. FINDINGS: Image quality: Excellent. ABDOMEN: Lung bases: Lung bases are clear. Mild cardiomegaly.. Solid organs: Liver is normal in size and enhancement. Gallbladder is unremarkable. Biliary system is non dilated. Pancreas enhances normally. Spleen is normal in size and enhancement. No adrenal nodules. There is a combination of a chronic left UPJ obstruction and a large left renal/peripelvic cysts. There is moderate left hydronephrosis. The left ureter is not dilated. There is a small amount of left perirenal fluid. There is left renal cortical thinning. There is mild to moderate right hydronephrosis and hydroureter down to the base of the bladder. Peritoneum and bowel: Bowel loops demonstrate normal wall thickness and caliber. No free fluid or air. Large amount of fecal debris. Nodes and vessels: No retroperitoneal or mesenteric adenopathy by size criteria. Aorta and inferior vena cava are normal in size. Miscellaneous: No ventral hernias. PELVIS: Genitourinary: Bladder is distended. No bladder wall thickening. Enlarged prostate. Miscellaneous: No inguinal hernias or adenopathy. The right testicle appears to be present within the right inguinal canal. Bones: No suspicious bony lesions. No vertebral body compression fractures. IMPRESSION: 1. Left renal findings include a chronic UPJ obstruction and a large peripelvic cyst with moderate hydronephrosis. A small amount of left perirenal fluid has developed suggesting possible acute inflammation versus calyceal rupture with leak of urine. 2. Enlarged prostate, distended bladder. 3. Right hydroureter and hydronephrosis may be secondary to bladder outlet obstruction. 4. Large amount of fecal debris. Comment: Final report is concordant with preliminary interpretation provided by [facility]. Dictated by: Laith Estrella M.D. on 10/21/2019 at 8:10 Approved by: Laith Estrella M.D. on 10/21/2019 at 8:20
[2019-10-21] MEDS: ACETAMINOPHEN 325 MG TABLET 650 MG PO (00:04)
[2019-10-21 00:33] VITALS: BP 138/76; PULSE 87; RESP 16; TEMP 36.9; O2SAT 95
[2019-10-21] MEDS: SODIUM CHLORIDE 0.9% 1,000 ML 1000 ML IV (00:47)
[2019-10-21 00:58] LABS: Bilirubin Urine UA NEGATIVE (NEGATIVE); Color Urine UA YELLOW; Glucose Urine UA NEGATIVE (Negative); Ketones Urine UA NEGATIVE (NEGATIVE); Leukocyte Esterase Urine UA 1+ (NEGATIVE); Nitrite Urine UA NEGATIVE (Negative); Occult Blood Urine UA 3+ (Negative); Protein Urine UA TRACE (Negative); Specific Gravity Urine UA 1.015 (1.000-1.035); Urobilinogen Urine UA 0.2 E.U./dL (0.2); pH Urine UA 6.5 (4.5-8.0)
[2019-10-21 01:00] VITALS: TEMP 39.2
[2019-10-21 01:00] LABS: Appearance Urine UA Slightly Cloudy
[2019-10-21 01:05] LABS: Bacteria Urine Many (>30); Culture Indicated Urine Specimen Cultured; RBC Urine 10-30/HPF (0-5/HPF); WBC Urine 10-30/HPF (0-5/HPF)
[2019-10-21] MEDS: CEFTRIAXONE 1 GM/50 ML FROZ.PIGGY IV (01:23)
[2019-10-21 01:31] VITALS: BP 156/66; PULSE 90; RESP 20; TEMP 37.7; O2SAT 96
--- NOTE | 2019-10-21 01:32 | PC.NURSE ---
Straight cathed pt. 700ml dark yellow,cloudy foul smelling urine obtained.Specimen sent to lab.
[2019-10-21 02:35] VITALS: BP 143/81; PULSE 81; RESP 16; O2SAT 96
[2019-10-21 11:54] LABS: Enterococcus species Not Detected (Not Detect); Listeria monocytogenes Not Detected (Not Detect); Staphylococcus species Not Detected (Not Detect); Streptococcus agalactiae (Gr B Not Detected (Not Detect); Streptococcus pneumonia Not Detected (Not Detect); Streptococcus species Not Detected (Not Detect)
[2019-10-21 11:55] LABS: Acinetobacter baumannii Not Detected (Not Detect); Candida albicans Not Detected (Not Detect); Candida glabrata Not Detected (Not Detect); Candida krusei Not Detected (Not Detect); Candida parapsilosis Not Detected (Not Detect); Candida tropicalis Not Detected (Not Detect); E. coli Detected (Not Detect); Enterobacter cloacae complex Not Detected (Not Detect); Enterobacteriaceae species Detected (Not Detect); Haemophilus influenzae Not Detected (Not Detect); KPC (carbapenem-resist gene) Not Detected (Not Detect); Neisseria meningitidis Not Detected (Not Detect); Proteus species Not Detected (Not Detect); Pseudomonas aeruginosa Not Detected (Not Detect); Serratia marcescens Not Detected (Not Detect); Streptococcus pyogenes (Gr A) Not Detected (Not Detect)
[2019-10-21 20:37] LABS: COVID19 Sendout Not Detected (Not Detect)
== END 2019-10-21 02:35 | disposition home or self-care (01) ==
PROVIDERS: Emergency Provider Emergency Medicine; Family Provider Specialist; PCP Student in an Organized Health Care Education/Training Program
DX: N12 Tubulo-interstitial nephritis, not specified as acute or chronic (principal); R00.0 Tachycardia, unspecified; R50.9 Fever, unspecified; R06.02 Shortness of breath
CPT/HCPCS: 36415; 71045; 74177; 80053; 81001; 83605; 83690; 84145; 85025; 85610; 85730; 87040; 87077; 87086; 87150; 87186; 87205; 87635; 93005; 93010; 96365; 99284; 99285

== ENCOUNTER → 2019-11-22 13:23 | Outpatient (CLI) | payer MEDICARE, MEDICAID, SELFPAY ==
[2019-02-23 15:52] VITALS: BMI 25.3
[2019-11-23 14:34] LABS: COVID19 Sendout Not Detected (Not Detect)
== END ==
PROVIDERS: Family Provider Specialist; PCP Student in an Organized Health Care Education/Training Program; Visit Provider Registered Nurse
DX: Z01.818 Encounter for other preprocedural examination (principal)
CPT/HCPCS: 87635

== ENCOUNTER → 2019-12-12 11:17 | Outpatient (CLI) | payer MEDICARE, MEDICAID, SELFPAY ==
[2019-02-23 15:52] VITALS: BMI 25.3
[2019-12-13 02:03] LABS: COVID19 Sendout Not Detected (Not Detect)
== END ==
PROVIDERS: Family Provider Specialist; PCP Student in an Organized Health Care Education/Training Program; Visit Provider Physician Assistant
DX: Z01.812 Encounter for preprocedural laboratory examination (principal)
CPT/HCPCS: 87635

== ENCOUNTER → 2019-12-15 15:35 | Outpatient (CLI) | payer MEDICARE, MEDICAID, SELFPAY ==
[2019-02-23 15:52] VITALS: BMI 25.3
--- NOTE | 2019-12-21 09:47 | PM.PFT.1 ---
Pulmonary Function Test Referral & Results Date Patient Seen: 12/15/19 Requesting provider: Caty Del Rio Results: The spirometry demonstrates an FVC of 4.05 L which is 93% of predicted. The FEV1 was measured at 3.06 L which is 95% of predicted. The FEV1/FVC ratio was 76 which is 102% of predicted. No bronchodilator was administered Lung volumes show an SVC 3.99 L which is 89% of predicted The diffusing capacity was measured at 24.20 which is 78% of predicted. No hemoglobin value was provided, so no correction for potential anemia could be made, if appropriate. The maximum voluntary ventilation was reduced Interpretation: This study demonstrates normal spirometry but slightly reduced diffusing capacity as above, unless patient is anemic
== END ==
PROVIDERS: Family Provider Specialist; PCP Student in an Organized Health Care Education/Training Program; Referring Provider Internal Medicine Cardiovascular Disease; Visit Provider Internal Medicine Cardiovascular Disease
DX: R06.09 Other forms of dyspnea (principal)
CPT/HCPCS: 94060; 94726; 94729

== ENCOUNTER → 2019-12-27 13:56 | Outpatient (CLI) | payer MEDICARE, MEDICAID, SELFPAY ==
[2019-02-23 15:52] VITALS: BMI 25.3
== END ==
PROVIDERS: Family Provider Specialist; PCP Student in an Organized Health Care Education/Training Program; Visit Provider Specialist
DX: N39.0 Urinary tract infection, site not specified (principal); N40.1 Benign prostatic hyperplasia with lower urinary tract symptoms; N31.9 Neuromuscular dysfunction of bladder, unspecified; R97.20 Elevated prostate specific antigen [PSA]; Z87.440 Personal history of urinary (tract) infections
CPT/HCPCS: 51798; 81002; 87077; 87086; 87186; 99213

== ENCOUNTER → 2020-01-03 13:21 | Outpatient (CLI) | payer MEDICARE, MEDICAID, SELFPAY ==
[2019-02-23 15:52] VITALS: BMI 25.3
--- NOTE | 2020-01-03 13:48 | DI.ECHO.S_ITS ---
Echocardiogram Report + + :Name: EULOGIO BENAVIDEZ Study Date: 01/03/2020 Height: 69 in : :[facility] Weight: 186 lb : : Gender: Male BSA: 2.0 m2 : :: 1950 Age: 69 yrs BP: 165/70 mmHg: :Reason For Study: Dilated Cardiomyopathy : :Ordering Physician: Jairo : :Buddy Nowak Performed By: Ni Zuluaga : :Referring: JAIRO NOWAK : + + Interpretation Summary The left ventricle is moderately dilated. This is Unchanged compared to the previous study. The ejection fraction is estimated to be 40-45%. Left ventricular systolic function has mildly improved compared to the previous exam. The right ventricle is mildly dilated. The right ventricular systolic function is normal. There is moderate aortic regurgitation. Compared to the prior echo study, there has been no change in the severity of aortic regurgitation. Ao root diam: 4.8 cm asc Aorta Diam: 4.3 cm Ao Arch Diam (Prox Trans): 3.0 cm In February 24, 2019: Ao root diam: 4.8 cm asc Aorta Diam: 4.2 cm Ao Arch Diam (Prox Trans): 3.3 cm In : Ao root diam: 4.8 cm asc Aorta Diam: 4.3 cm Ao Arch Diam (Prox Trans): 3.7 cm Procedure: A two-dimensional transthoracic echocardiogram with color flow and Doppler was performed. The study quality was technically adequate. Comparison is made with the echocardiogram of 02/24/2019. The patient was in sinus bradycardia with heart rates between 54-60 bpm during the exam. Left Ventricle: The left ventricle is moderately dilated. The estimated left ventricular end diastolic volume is 343 ml. Proximal septal thickening is noted. This is Unchanged compared to the previous study. There is no thrombus. Left ventricular global longitudinal strain average is -16.8%. The ejection fraction is estimated to be 40-45%. Left ventricular systolic function has mildly improved compared to the previous exam. There is mild global hypokinesis of the left ventricle. MV E/A: 1.6 Med Peak E' Anthony: 4.1 cm/sec E/E' med: 15.5. Right Ventricle: The right ventricle is mildly dilated. The right ventricular systolic function is normal. Atria: The left atrium is moderately dilated. The left atrium has mildly decreased in size since the prior echo exam. The right atrium is borderline dilated. There is no Doppler evidence for an interatrial shunt. Mitral Valve: There is mild mitral annular calcification. There is systolic anterior motion of the chordal apparatus. There is fine diastolic fluttering of the mitral valve consistent with aortic regurgitation. There is a flat closure plane of the the mitral valve leaflets. No significant mitral valve stenosis. There is mild mitral regurgitation. Compared to the prior echo study, there has been a decrease in the severity of mitral regurgitation. Aortic Valve: The aortic valve is trileaflet. The aortic valve is mildly calcified. There is no aortic valve stenosis. There is moderate aortic regurgitation. There is an eccentric jet of aortic insufficiency directed against the anterior mitral leaflet. There is mild holodiastolic flow reversal in the descending thoracic aorta. Compared to the prior echo study, there has been no change in the severity of aortic regurgitation. Tricuspid Valve: The tricuspid valve is normal in structure and function. There is trace tricuspid regurgitation. Compared to the prior echo exam, there has been a decrease in TR severity. Pulmonary artery pressures cannot be estimated because of the lack of a measurable TR jet velocity. Pulmonic Valve: The pulmonic valve is not well visualized. There is no pulmonic valvular regurgitation. Great Vessels: The aortic root is moderately dilated. The ascending aorta is moderately enlarged. The IVC is dilated (diameter is greater than 2.1 cm) yet it collapses greater than 50% with a sniff. This suggests a right atrial pressure of 8 mm Hg. Pericardium/ Pleura There is no pericardial effusion. There is no pleural effusion. MMode/2D Measurements & Calculations LVIDd: 6.7 cm LVOT diam: 3.0 cm LVIDs: 5.3 cm Ao root diam: 4.8 cm FS: 21.0 % asc Aorta Diam: 4.3 cm IVSd: 1.3 cm Ao Arch Diam (Prox Trans): 3.0 cm LVPWd: 1.1 cm LV fulton. diameter/BSA (cm/m^2): 3.3 LV sys. diameter/BSA (cm/m^2): 2.6 LA A2 area: 27.7 cm2 RA long axis: 6.2 cm LA A4 area: 25.8 cm2 RA area: 21.7 cm2 LA length (vol): 6.6 cm RA vol: 64.8 ml LA vol: 92.6 ml RA : 32.3 ml/m2 LA vol index: 46.2 ml/m2 IVC diam: 2.3 cm RVD1 (basal): 4.1 cm TAPSE: 2.8 cm Doppler Measurements & Calculations Ao V2 max: 194.4 cm/sec LVOT Max Anthony: 138.9 cm/sec Ao V2 mean: 113.2 cm/sec LV V1 max P.7 mmHg Ao max P.1 mmHg LV V1 VTI: 27.9 cm Ao mean P.2 mmHg CATERINA(I,D): 5.1 cm2 Ao V2 VTI: 38.1 cm CATERINA(V,D): 5.0 cm2 sev ratio: 0.73 CATERINA indexed to BSA (cm^2/m^2): 2.5 AI P1/2t: 390.3 msec AI dec slope: 322.8 cm/sec2 MV E max anthony: 63.8 cm/sec PA V2 max: 75.4 cm/sec MV A max anthony: 40.7 cm/sec PA V2 mean: 39.6 cm/sec MV E/A: 1.6 PA mean P.83 mmHg Med Peak E' Anthony: 4.1 cm/sec PA pr(Accel): 22.5 mmHg E/E' med: 15.5 Lat Peak E' Anthony: 5.0 cm/sec E/E' lat: 12.7 E/e' average: 14.1 MV dec time: 0.21 sec SV(LVOT): 193.5 ml Reading Physician:05:10 PM
== END ==
PROVIDERS: Family Provider Specialist; PCP Student in an Organized Health Care Education/Training Program; Referring Provider Internal Medicine Cardiovascular Disease; Visit Provider Internal Medicine Cardiovascular Disease
DX: I08.0 Rheumatic disorders of both mitral and aortic valves (principal); I42.0 Dilated cardiomyopathy; I77.89 Other specified disorders of arteries and arterioles
CPT/HCPCS: 93306

== ENCOUNTER → 2020-01-09 09:09 | Outpatient (CLI) | payer MEDICARE, MEDICAID, SELFPAY ==
[2019-02-23 15:52] VITALS: BMI 25.3
[2020-01-09 10:28] LABS: Alanine Aminotransferase 30 IU/L (<50); Albumin 3.9 g/dL (3.5-5.0); Albumin Globulin Ratio 1.6 (1.0-2.8); Alkaline Phosphatase 52 U/L (38-126); Aspartate Aminotransferase 30 IU/L (17-59); BUN Creatinine Ratio 20.9 (6-22); Bilirubin Total 0.6 mg/dL (0.2-1.3); Blood Urea Nitrogen 19 mg/dL (9-20); Calcium 9.4 mg/dL (8.4-10.2); Carbon Dioxide 31 mmol/L (22-32); Chloride 105 mmol/L (98-107); Estimated Glomerular Filt Rate > 60.0 mL/min (>60); Globulin 2.5 g/dL (1.7-4.1); Glucose 89 mg/dL (80-110); HEMOLYSIS < 15 (0-50); Potassium 4.3 mmol/L (3.4-5.1); Sodium 138 mmol/L (137-145); Total Protein 6.4 g/dL (6.3-8.2)
[2020-01-09 10:57] LABS: Thyroid Stimulating Hormone 2.13 uIU/mL (0.47-4.68)
[2020-01-09 10:57] LABS: Prostate Specific Antigen 4.34 ng/mL (0.10-4.00)
== END ==
PROVIDERS: Family Provider Specialist; PCP Student in an Organized Health Care Education/Training Program; Referring Provider Specialist; Visit Provider Internal Medicine Cardiovascular Disease
DX: I42.0 Dilated cardiomyopathy (principal); Z79.899 Other long term (current) drug therapy; R97.20 Elevated prostate specific antigen [PSA]
CPT/HCPCS: 36415; 80053; 84153; 84443

== ENCOUNTER → 2020-04-10 11:50 | Outpatient (CLI) | payer MEDICARE, MEDICAID, SELFPAY ==
[2019-02-23 15:52] VITALS: BMI 25.3
[2020-04-10 13:22] LABS: Alanine Aminotransferase 25 IU/L (<50); Albumin 3.8 g/dL (3.5-5.0); Albumin Globulin Ratio 1.4 (1.0-2.8); Alkaline Phosphatase 51 U/L (38-126); Aspartate Aminotransferase 24 IU/L (17-59); BUN Creatinine Ratio 28.2 (6-22); Bilirubin Total 0.6 mg/dL (0.2-1.3); Blood Urea Nitrogen 31 mg/dL (9-20); Calcium 9.9 mg/dL (8.4-10.2); Carbon Dioxide 28 mmol/L (22-32); Chloride 104 mmol/L (98-107); Cholesterol 114 mg/dL (140-199); Estimated Glomerular Filt Rate > 60.0 mL/min (>60); Globulin 2.7 g/dL (1.7-4.1); Glucose 86 mg/dL (80-110); HDL Cholesterol 55 mg/dL (40-60); HEMOLYSIS < 15 (0-50); LDL Cholesterol Calculated 45 mg/dL (<100); Potassium 4.3 mmol/L (3.4-5.1); Sodium 138 mmol/L (137-145); Total Protein 6.5 g/dL (6.3-8.2); Triglycerides 69 mg/dL (35-150)
[2020-04-10 13:52] LABS: Thyroid Stimulating Hormone 2.21 uIU/mL (0.47-4.68)
[2020-04-10 13:53] LABS: Prostate Specific Antigen 3.76 ng/mL (0.10-4.00)
== END ==
PROVIDERS: Family Provider Specialist; PCP Student in an Organized Health Care Education/Training Program; Referring Provider Specialist; Visit Provider Internal Medicine Cardiovascular Disease
DX: N40.1 Benign prostatic hyperplasia with lower urinary tract symptoms (principal); R39.14 Feeling of incomplete bladder emptying; Z79.899 Other long term (current) drug therapy
CPT/HCPCS: 36415; 80053; 80061; 84153; 84443

== ENCOUNTER → 2020-08-16 11:49 | Outpatient (CLI) | payer MEDICARE, MEDICAID, SELFPAY ==
[2019-02-23 15:52] VITALS: BMI 25.3
--- NOTE | 2020-08-16 11:50 | DI.CT.S_ITS ---
PROCEDURE: CT PEL WO CON INDICATIONS: Left hip wound with probable hematoma; s/p arthroplasty TECHNIQUE: Noncontrast 3 mm axial sections acquired through the bony pelvis, with coronal and sagittal reformatting. COMPARISON: [facility], CT, CT ABDOMEN PELVIS W CON, 10/20/2019, 23:55. [facility] [place], CR, XR PELVIS W LATERAL HIP LT, 07/31/2015, 8:50. FINDINGS: Image quality: Excellent. Bones: No fracture or dislocation. There is left hip arthroplasty with the prosthesis which appears intact. Soft tissues: There is a large acute subcutaneous hematoma in the lateral aspect of the left thigh measuring 7.4 cm AP x 7.3 cm transverse and 7.9 cm cephalocaudal. Subcutaneous soft tissue stranding in the left thigh and buttock is consistent with soft tissue contusion. There is a moderate amount of stool in colon. Mild rectal thickening is most likely due to lack of distension. Prostate is enlarged. IMPRESSION: 1. No fracture or dislocation. 2. Left hip arthroplasty with intact prosthesis. 3. A large subcutaneous hematoma in the lateral aspect of the left thigh measuring 7.4 x 7.3 x 7.9 cm. 4. Soft tissue stranding consistent with contusion of the left thigh. Dictated by: Mason Godinez M.D. on 08/16/2020 at 12:20 Approved by: Mason Godinez M.D. on 08/16/2020 at 12:25
== END ==
PROVIDERS: Family Provider Specialist; PCP Student in an Organized Health Care Education/Training Program; Referring Provider Student in an Organized Health Care Education/Training Program; Visit Provider Student in an Organized Health Care Education/Training Program
DX: M25.552 Pain in left hip (principal); S70.12XA Contusion of left thigh, initial encounter; Z96.642 Presence of left artificial hip joint; Z79.01 Long term (current) use of anticoagulants
CPT/HCPCS: 72192; 99214

== ENCOUNTER → 2020-09-05 17:39 | Outpatient (CLI) | payer MEDICARE, MEDICAID, SELFPAY ==
[2020-08-16 13:41] VITALS: BMI 25.3
[2020-09-05] MEDS: COVID-19 VACC, Ad26(JANSSEN)/PF 0.5 ML IM (17:45)
== END ==
PROVIDERS: Family Provider Specialist; PCP Student in an Organized Health Care Education/Training Program; Visit Provider Internal Medicine
DX: Z23 Encounter for immunization (principal)
CPT/HCPCS: 0031A; 91303

== ENCOUNTER 2020-10-28 08:13 | Emergency (ER) | payer MEDICARE, MEDICAID, SELFPAY ==
[2020-08-16 13:41] VITALS: BMI 25.3
[2020-10-28] VITALS (9 sets, daily range): BP systolic 206–234; BP diastolic 86–101; PULSE 63–71; RESP 16; TEMP 36.9; O2SAT 95–97; BMI 28.8
[2020-10-28] MEDS: LIDOCAINE JELLY 2% 5 ML 5 APPLIC TOP (08:30)
--- NOTE | 2020-10-28 08:34 | PC.NURSE ---
Pt self caths for neurogenic bladder. was using cath this morning and states he thinks he used too much lubrication and catheter got pushed too far in and now is unable to be removed. on inspection, green end of catheter visualized at tip of meatus. mild swelling from patient's attempt at removable is making retrieval more difficult. lidocaine jelly applied at tip for anaesthetic and ice applied to area per Dr Cavanaugh. Pt in NAD
--- NOTE | 2020-10-28 08:41 | ED_ITS ---
HPI - Male Genitourinary General Chief complaint: Urogenital-Male Stated complaint: self cath and put it in to far and cant get it out Time Seen by Provider: 10/28/20 08:36 Source: patient Mode of arrival: Ambulatory Limitations: no limitations History of Present Illness HPI Narrative: This is a pleasant 70-year-old male who was attempting to self cath today and states that he probably used too much lubrication and that the catheter slipped inside the urethra and he has been unable to remove it from inside the urethra. Patient states that he did attempt to her move himself with tweezers but was unsuccessful. He states he has not any pain. He was able to successfully decompressed his bladder. Patient denies any other symptoms at this time. He is on warfarin for atrial fibrillation as well as take several other cardiac medications. Patient states he follows with Dr. Treviño for urology. Patient states his last INR was about a week ago and was 2.1 Related Data Home Medications Medication Instructions Recorded Confirmed cholecalciferol (vitamin D3) 50 4,000 unit PO DAILY #0 cap 10/12/18 09/06/20 mcg (2,000 unit) capsule ferrous sulfate 325 mg (65 mg 325 mg PO MOTUWETHFR tab 12/21/18 09/06/20 iron) tablet acetaminophen 1,000 mg PO Q6H PRN 02/23/19 09/06/20 losartan 25 mg tablet 25 mg PO BID tab 07/20/19 09/06/20 Previous Rx's Medication Instructions Recorded furosemide 20 mg tablet 20 mg PO DAILY #90 tab 02/02/19 amiodarone 200 mg PO DAILY #30 tab 02/25/19 carvedilol 12.5 mg PO BID #60 tab 02/25/19 spironolactone 25 mg tablet 25 mg PO DAILY #90 tab 10/07/19 methenamine hippurate 1 gram tablet 1 gram PO BID #90 tab 12/27/19 tamsulosin 0.4 mg capsule 0.4 mg PO DAILY #90 cap 12/27/19 atorvastatin 20 mg tablet 20 mg PO BEDTIME #90 tab 02/20/20 warfarin 2 mg tablet See Rx Instructions PO DAILY #120 03/27/20 tab omeprazole 20 mg capsule,delayed 20 mg PO DAILY #90 cap 06/13/20 release warfarin 1 mg tablet See Rx Instructions PO 5XW #200 tab 06/28/20 cephalexin 500 mg PO TID 3 Days #9 cap 10/28/20 Allergies Allergy/AdvReac Type Severity Reaction Status Date / Time ciprofloxacin Allergy Severe BREATHING Verified 09/06/20 15:37 PROBLEMS, CHILLS, SHAKES alendronate sodium AdvReac Severe GI bleed Verified 09/06/20 15:37 [ALENDRONATE SODIUM] cephalexin AdvReac Mild Headache Verified 09/06/20 15:37 morphine AdvReac Mild ABD PAIN Verified 09/06/20 15:37 Review of Systems Review of Systems ROS Unobtainable: All systems reviewed & are unremarkable except as noted in HPI and below Patient History Medical History Anemia (Unknown) Atrial fibrillation (06/2017) Atrial fibrillation with RVR Cardiomyopathy (06/2017) CHF (congestive heart failure) (~06/2017) Duodenal ulcer (Unknown) Elevated PSA Encephalopathy (Unknown) Gastric ulcer (Unknown) Gastritis (Unknown) History of recurrent UTI (urinary tract infection) Hyperlipemia (Unknown) Hypertension (Unknown) Neurogenic bladder (Unknown) Neurogenic bladder Neuropathy (Unknown) Osteoarthritis (Unknown) Osteopenia (03/2016) Peptic ulcer (Unknown) Pyelonephritis (~2011) Sepsis Surgical History History of bilateral knee replacement (Unknown) History of colon resection History of left hip replacement (Unknown) Hx of shoulder surgery (Unknown) Family History Mother Cancer Social History marital status: unknown household members: none occupational status: previously employed Smoking Status: Never smoker second hand exposure: No alcohol intake: never substance use type: does not use Smoking Status: Never smoker alcohol intake frequency: other Substance Use Type: does not use Exam Narrative Exam Narrative: GENERAL: Alert and oriented x three, well-nourished male in mild distress. HEENT: Head normocephalic, atraumatic, EOMI, pupils reactive, face symmetric, moist mucous membranes NECK: Supple, full range of motion CARDIOVASCULAR: Regular rate and rhythm without murmurs, rubs or gallops. RESPIRATORY: Breath sounds equal bilaterally, no wheezes rales or rhonchi. ABDOMEN: Soft, nontender. Normoactive bowel sounds all 4 quadrants. No guarding or rebound, rigidity, no mass : No CVA tenderness. Male: normal external examination with slightly swollen glans, I am able to palpate the edge of the catheter through the glans but I am unable to visually identify the catheter on initial evaluation, no penile discharge or lesions, testicles non-tender, cremasteric reflex intact, no inguinal hernias noted. EXTREMITIES: Normal range of motion, no clubbing or edema. Neurovascularly intact NEUROLOGICAL: Cranial nerves II through XII grossly intact. Moving all extremities SKIN: Warm, dry, no petechiae, no rashes or lesions. Initial Vital Signs Initial Vital Signs: Vital Signs Temperature 98.4 F 10/28/20 08:25 Pulse Rate 71 10/28/20 08:25 Respiratory Rate 16 10/28/20 08:25 Blood Pressure 234/99 H 10/28/20 08:25 Pulse Oximetry 97 10/28/20 08:25 Course Orders Ordered: Discontinued Medications Cephalexin HCl (Cephalexin 250 Mg Capsule) 500 mg PO NOW ONE Stop: 10/28/20 10:49 Last Admin: 10/28/20 11:07 Dose: 500 mg Documented by: JUANPABLO Reevaluation(s) Reevaluation #1: Attempted to remove after ice to the urethra opening/penis and urojet and after several unsuccessful attempts we stopped to try to prevent any additional trauma to the area as patient has had some increasing swelling. P atient is easily draining urine from the area. He does not have any pain at this time he does not appreciate any significant new swelling today but per nursing from there initial evaluation. Consultations Consultation #1: Dr. Treviño for urology, patient can follow up in office in am for removal. Patient to call at 0900 when office opens. Asks patient to ice intermittently for swelling. No concerns regarding warfarin. Does not have to stop. Patient is freely draining urine. Return precautions overnight and oral keflex 500mg TID. Time: 10:29 Vital Signs Vital signs: Vital Signs - 8 hr 10/28/20 08:25 10/28/20 09:13 10/28/20 09:15 Temperature 98.4 F Pulse Rate 71 66 64 Respiratory Rate 16 Blood Pressure 234/99 H 206/86 H Pulse Oximetry 97 96 97 10/28/20 09:30 10/28/20 10:00 10/28/20 10:33 Temperature Pulse Rate 67 64 70 Respiratory Rate Blood Pressure Pulse Oximetry 96 95 97 10/28/20 10:36 Temperature Pulse Rate 64 Respiratory Rate Blood Pressure 232/101 H Pulse Oximetry 97 MDM - Male Genitourinary Lab Data Result diagrams: 10/28/20 08:45 10/28/20 08:45 Labs: Lab Results 10/28/20 10/28/20 10/28/20 Range/Units 08:45 08:45 08:45 WBC 5.7 (4.5-11.0) X10^3/uL RBC 4.11 L (4.5-5.9) X10^6/uL Hgb 13.7 (13.5-17.5) g/dL Hct 39.8 L (41-53) % MCV 96.9 (80-100) fL MCH 33.2 (26-34) PG MCHC 34.3 (30-36) % RDW 13.4 (11.6-14.8) % Plt Count 199 (150-400) X10^3/uL Neut % (Auto) 72.6 (50-75) % Lymph % (Auto) 12.6 L (25-40) % [place] % (Auto) 9.8 (3-14) % Eos % (Auto) 3.8 (2-4) % Baso % (Auto) 1.2 (0-2) % Neut # (Auto) 4100 (4092-2107) /uL Lymph # (Auto) 700 L (0875-7420) /uL [place] # (Auto) 600 (0-900) /uL Eos # (Auto) 200 (0-450) /uL Baso # (Auto) 100 (0-100) /uL PT 24.4 H (10.1-12.7) SECONDS INR 2.2 H (0.9-1.3) Sodium 139 (137-145) mmol/L Potassium 3.9 (3.4-5.1) mmol/L Chloride 108 H (98-107) mmol/L Carbon Dioxide 26 (22-32) mmol/L BUN 27 H (9-20) mg/dL Creatinine 0.94 (0.66-1.25) mg/dL Estimated GFR > 60.0 (>60) mL/min BUN/Creatinine Ratio 28.7 H (6-22) Glucose 99 (80-110) mg/dL Calcium 9.5 (8.4-10.2) mg/dL SARS-CoV-2 (PCR) (Negative) 10/28/20 10/28/20 Range/Units 08:50 08:50 WBC (4.5-11.0) X10^3/uL RBC (4.5-5.9) X10^6/uL Hgb (13.5-17.5) g/dL Hct (41-53) % MCV (80-100) fL MCH (26-34) PG MCHC (30-36) % RDW (11.6-14.8) % Plt Count (150-400) X10^3/uL Neut % (Auto) (50-75) % Lymph % (Auto) (25-40) % [place] % (Auto) (3-14) % Eos % (Auto) (2-4) % Baso % (Auto) (0-2) % Neut # (Auto) (0716-0738) /uL Lymph # (Auto) (2531-9703) /uL [place] # (Auto) (0-900) /uL Eos # (Auto) (0-450) /uL Baso # (Auto) (0-100) /uL PT (10.1-12.7) SECONDS INR (0.9-1.3) Sodium (137-145) mmol/L Potassium (3.4-5.1) mmol/L Chloride (98-107) mmol/L Carbon Dioxide (22-32) mmol/L BUN (9-20) mg/dL Creatinine (0.66-1.25) mg/dL Estimated GFR (>60) mL/min BUN/Creatinine Ratio (6-22) Glucose (80-110) mg/dL Calcium (8.4-10.2) mg/dL SARS-CoV-2 (PCR) Negative Negative (Negative) [facility] Narrative Medical decision making narrative: This is a 70-year-old male who was self catheterizing when the catheter itself slipped inside the urethra and patient has been unable to extract it. I am able to palpate the edge of the catheter but unable to directly visualize the catheter edge. Patient denies any pain at but urojet was applied and ice applied to the area to assist with swelling. Attempted removal with curved hemostats and unable to to grasp edge of the catheter. After discussion with Urology they asked that patient follow-up in the office as he is easily draining urine. Patient I discussed return precautions including he is having increasing swelling, unable to drain urine or drainage easily or if he is having any skin changes such as, discoloration bluish sinus or erythema or new pain overnight and he can see the urologist. Discharge Plan Departure Patient Disposition: Home Clinical Impression: Problem with urinary catheter Activity Restrictions/Additional Instructions: Follow up with Dr. Treviño in the morning. Call the office first thing in the morning and let the staff know Dr. Treviño has requested that you are seen same day for removal of your catheter. Please clarify with staff that it is not a aldana catheter but one used for self catheterization. Take keflex 500mg every 8 hours. Prescription to [facility] in [place]. Ice the area for 10 minutes every 2-3 hours. You may try elevating the glans of the penis to assist with swelling. I would wear an adult diaper until you can be seen by Dr. Treviño as you will be actively draining urine. Please return for increasing swelling, if you are not draining any urine or having difficulty with draining, increasing pain any changing color of the skin such as cyanosis or bluish discoloration or pallor or pale discoloration or if you develops new redness or active bleeding or any new or concerning symptoms. Prescriptions: New cephalexin 500 mg capsule 500 mg PO TID 3 Days Qty: 9 RF: 0 No Action cholecalciferol (vitamin D3) [Vitamin D3] 2,000 unit capsule 4,000 unit PO DAILY Qty: 0 RF: 0 furosemide 20 mg tablet 20 mg PO DAILY Qty: 90 RF: 1 atorvastatin [Lipitor] 20 mg tablet 20 mg PO BEDTIME Qty: 90 RF: 2 warfarin 2 mg tablet See Rx Instructions PO DAILY Qty: 120 RF: 2 warfarin 1 mg tablet See Rx Instructions PO 5XW Qty: 200 RF: 0 losartan 25 mg tablet 25 mg PO BID RF: 0 ferrous sulfate 325 mg (65 mg iron) tablet 325 mg PO MOTUWETHFR RF: 0 spironolactone 25 mg tablet 25 mg PO DAILY Qty: 90 RF: 3 omeprazole 20 mg capsule,delayed release(DR/EC) 20 mg PO DAILY Qty: 90 RF: 1 acetaminophen 500 mg capsule 1,000 mg PO Q6H PRN (Reason: pain) RF: 0 amiodarone 200 mg tablet 200 mg PO DAILY Qty: 30 RF: 0 carvedilol 12.5 mg tablet 12.5 mg PO BID Qty: 60 RF: 0 methenamine hippurate [Hiprex] 1 gram tablet 1 gram PO BID Qty: 90 RF: 3 tamsulosin [Flomax] 0.4 mg capsule 0.4 mg PO DAILY Qty: 90 RF: 3 Referrals: Maykel Bullock MD [Primary Care Provider] - Ok Treviño MD [Family Provider] -
[2020-10-28 08:51] LABS: Add Manual Diff / Slide Review NO; Basophils Absolute Auto 100 /uL (0-100); Basophils Percent Auto 1.2 % (0-2); Eosinophils Absolute Auto 200 /uL (0-450); Eosinophils Percent Auto 3.8 % (2-4); Hematocrit 39.8 % (41-53); Hemoglobin 13.7 g/dL (13.5-17.5); Lymphocytes Absolute Auto 700 /uL (1100-4500); Lymphocytes Percent Auto 12.6 % (25-40); Mean Corpuscular HGB Conc 34.3 % (30-36); Mean Corpuscular Hemoglobin 33.2 PG (26-34); Mean Corpuscular Volume 96.9 fL (80-100); Monocytes Absolute Auto 600 /uL (0-900); Monocytes Percent Auto 9.8 % (3-14); Neutrophils Absolute Auto 4100 /uL (1500-7000); Neutrophils Percent Auto 72.6 % (50-75); Platelet Count 199 X10^3/uL (150-400); Red Blood Cell Count 4.11 X10^6/uL (4.5-5.9); Red Cell Distribution Width 13.4 % (11.6-14.8); White Blood Cell Count 5.7 X10^3/uL (4.5-11.0)
[2020-10-28 09:08] LABS: INR 2.2 (0.9-1.3); Prothrombin Time 24.4 SECONDS (10.1-12.7)
[2020-10-28 09:12] LABS: BUN Creatinine Ratio 28.7 (6-22); Blood Urea Nitrogen 27 mg/dL (9-20); Calcium 9.5 mg/dL (8.4-10.2); Carbon Dioxide 26 mmol/L (22-32); Chloride 108 mmol/L (98-107); Estimated Glomerular Filt Rate > 60.0 mL/min (>60); Glucose 99 mg/dL (80-110); HEMOLYSIS < 15 (0-50); Potassium 3.9 mmol/L (3.4-5.1); Sodium 139 mmol/L (137-145)
[2020-10-28 09:26] LABS: COVID19 -Nasal RAPID Negative (Negative)
[2020-10-28 09:52] LABS: COVID19 - ADMIT (NP swab/PCR) Negative (Negative)
[2020-10-28] MEDS: cephALEXin 250 MG CAPSULE 500 MG PO (11:07)
--- NOTE | 2020-10-28 11:31 | PC.NURSE ---
Attempted to place [place] cath on pt to go home with, unsuccessful due to catheter rolling off when pt stands. sent home with briefs and instructions to contact Dr Treviño's office in the morning.
== END 2020-10-28 11:32 | disposition home or self-care (01) ==
PROVIDERS: Emergency Provider Emergency Medicine; Family Provider Specialist; PCP Student in an Organized Health Care Education/Training Program
DX: T83.9XXA Unspecified complication of genitourinary prosthetic device, implant and graft, initial encounter (principal); Z20.822 Contact with and (suspected) exposure to COVID-19
CPT/HCPCS: 36415; 80048; 85025; 85610; 87635; 99283; 99284; C9803

== ENCOUNTER 2020-12-12 11:46 | Emergency (ER) | payer MEDICARE, MEDICAID, SELFPAY ==
[2020-08-16 13:41] VITALS: BMI 25.3
--- NOTE | 2020-12-12 12:12 | ED_ITS ---
HPI - General Adult General Chief complaint: Hypertension Stated complaint: high blood pressure Time Seen by Provider: 12/12/20 11:55 History of Present Illness HPI narrative: 70-year-old male nonsmoker with history of hypertension and hyperlipidemia presents at the request of his primary care office for evaluation of elevated blood pressure. He states his blood pressures been up for quite some time, he has been taking his medications as directed and has had no changes in quite some time. He was at the dentist addressing a bad tooth and they stated they would not pull his tooth because of blood pressure was too high. He contact his primary care office and actually has an appointment tomorrow but was redirected here for evaluation. He has no symptoms whatsoever. He denies he adache, blurred vision or trouble speech. Denies any chest pain or shortness of breath. He denies any nausea, vomiting or diarrhea. He is completely asymptomatic and at baseline. Associated symptoms: denies other symptoms Related Data Home Medications Medication Instructions Recorded Confirmed cholecalciferol (vitamin D3) 50 4,000 unit PO DAILY #0 cap 10/12/18 09/06/20 mcg (2,000 unit) capsule ferrous sulfate 325 mg (65 mg 325 mg PO MOTUWETHFR tab 12/21/18 09/06/20 iron) tablet acetaminophen 1,000 mg PO Q6H PRN 02/23/19 09/06/20 losartan 25 mg tablet 25 mg PO BID tab 07/20/19 09/06/20 Previous Rx's Medication Instructions Recorded furosemide 20 mg tablet 20 mg PO DAILY #90 tab 02/02/19 amiodarone 200 mg PO DAILY #30 tab 02/25/19 carvedilol 12.5 mg PO BID #60 tab 02/25/19 spironolactone 25 mg tablet 25 mg PO DAILY #90 tab 10/07/19 tamsulosin 0.4 mg capsule 0.4 mg PO DAILY #90 cap 12/27/19 warfarin 2 mg tablet See Rx Instructions PO DAILY #120 03/27/20 tab omeprazole 20 mg capsule,delayed 20 mg PO DAILY #90 cap 06/13/20 release warfarin 1 mg tablet See Rx Instructions PO 5XW #200 tab 06/28/20 methenamine hippurate 1 gram tablet 1 g PO BID #90 tab 11/06/20 atorvastatin 20 mg tablet 20 mg PO BEDTIME #90 tab 11/19/20 Allergies Allergy/AdvReac Type Severity Reaction Status Date / Time ciprofloxacin Allergy Severe BREATHING Verified 10/29/20 11:21 PROBLEMS, CHILLS, SHAKES alendronate sodium AdvReac Severe GI bleed Verified 10/29/20 11:21 [ALENDRONATE SODIUM] cephalexin AdvReac Mild Headache Verified 10/29/20 11:21 morphine AdvReac Mild ABD PAIN Verified 10/29/20 11:21 Review of Systems Constitutional Constitutional: Denies chills, Denies fatigue, Denies fever(s), Denies frequent falls, Denies lethargy and Denies weakness Eyes Eyes: Denies change in vision, Denies eye discharge, Denies irritation and Denies loss of vision ENT Ears, Nose, Mouth, and Throat: Denies change in voice, Denies dizziness, Denies neck pain, Denies sore throat and Denies throat swelling Cardiovascular Cardiovascular: Denies chest pain, Denies irregular heart rhythm, Denies lightheadedness, Denies palpitations, Denies dyspnea, Denies dyspnea on exertion and Denies orthopnea Respiratory Respiratory: Denies cough, Denies dyspnea, Denies dyspnea on exertion and Denies wheezing Gastrointestinal Gastrointestinal: Denies abdominal pain, Denies change in bowel habits, Denies diarrhea, Denies nausea and Denies vomiting Musculoskeletal Musculoskeletal: Denies neck pain and Denies numbness Integumentary/Breasts Skin/Breast: Denies pruritus, Denies erythema, Denies rash and Denies wounds Neurologic Neurologic: Denies behavioral changes, Denies confusion, Denies dizziness, Denies frequent falls, Denies loss of vision, Denies numbness and Denies weakness Psychiatric Psychiatric: Denies anxiety, Denies behavioral changes, Denies confusion, Denies depression, Denies homicidal ideation and Denies suicidal ideation Endocrine Endocrine: Denies fatigue, Denies flushing and Denies palpitations Hematologic/Lymphatic Hematologic/Lymphatic: Denies easy bruising Allergic/Immunologic Allergic/Immunologic: Denies urticaria, Denies throat swelling and Denies wheezing Patient History Medical History Anemia (Unknown) Atrial fibrillation (06/2017) Atrial fibrillation with RVR Cardiomyopathy (06/2017) CHF (congestive heart failure) (~06/2017) Duodenal ulcer (Unknown) Elevated PSA Encephalopathy (Unknown) Foreign body in urethra Gastric ulcer (Unknown) Gastritis (Unknown) History of recurrent UTI (urinary tract infection) Hyperlipemia (Unknown) Hypertension (Unknown) Neurogenic bladder (Unknown) Neurogenic bladder Neuropathy (Unknown) Osteoarthritis (Unknown) Osteopenia (03/2016) Peptic ulcer (Unknown) Pyelonephritis (~2011) Sepsis Surgical History History of bilateral knee replacement (Unknown) History of colon resection History of left hip replacement (Unknown) Hx of shoulder surgery (Unknown) Family History Mother Cancer Social History marital status: unknown household members: none occupational status: previously employed Smoking Status: Never smoker second hand exposure: No alcohol intake: never substance use type: does not use Smoking Status: Never smoker alcohol intake frequency: other Substance Use Type: does not use Exam Narrative Exam Narrative: GENERAL: [70] year old patient appears stated age. Well- developed patient, in mild distress. HEAD: Atraumatic. Normocephalic. EYES: Pupils equal round and reactive. Extraocular motions intact. No scleral icterus. No injection or drainage. ENT: Nose without bleeding, purulent drainage. Throat without erythema, tonsillar hypertrophy or exudate. Airway patent. NECK: Trachea midline. Non tender CARDIOVASCULAR: Regular rate and rhythm without murmurs, gallops, or rubs. RESPIRATORY: Clear to auscultation. Breath sounds equal bilaterally. No wheezes, rales, or rhonchi. GASTROINTESTINAL: Abdomen soft, non-tender, nondistended. EXTREMITIES: No edema or joint tenderness. BACK: Nontender without deformity or crepitance. No flank tenderness. NEURO: AOx3. SKIN: No rash or erythema of visible areas Initial Vital Signs Initial Vital Signs: Vital Signs Temperature 98.3 F 12/12/20 12:13 Pulse Rate 77 12/12/20 12:13 Respiratory Rate 16 12/12/20 12:13 Blood Pressure 225/71 H 12/12/20 12:13 Pulse Oximetry 97 12/12/20 12:13 Course Orders Ordered: ED Orders 12/12/20 12:15 EKG-12 Lead Stat 12/12/20 13:09 Basic Metabolic Panel Stat Complete Blood Count AUTO DIFF Stat Troponin & CK Cardiac Panel Stat Discontinued Medications Losartan Potassium (Losartan 25 Mg Tablet) 25 mg PO NOW ONE Stop: 12/12/20 12:21 Last Admin: 12/12/20 12:26 Dose: 25 mg Documented by: SHANTI Vital Signs Vital signs: Vital Signs - 8 hr 12/12/20 12:13 12/12/20 13:02 12/12/20 13:30 Temperature 98.3 F Pulse Rate 77 66 63 Respiratory Rate 16 16 16 Blood Pressure 225/71 H 184/79 H Pulse Oximetry 97 95 94 12/12/20 13:54 Temperature Pulse Rate 65 Respiratory Rate 15 Blood Pressure 208/82 H Pulse Oximetry 94 Medical Decision Making Lab Data Result diagrams: 12/12/20 13:09 12/12/20 13:09 Labs: Lab Results 12/12/20 12/12/20 Range/Units 13:09 13:09 WBC 5.9 (4.5-11.0) X10^3/uL RBC 4.00 L (4.5-5.9) X10^6/uL Hgb 12.8 L (13.5-17.5) g/dL Hct 37.6 L (41-53) % MCV 93.9 (80-100) fL MCH 32.1 (26-34) PG MCHC 34.1 (30-36) % RDW 14.1 (11.6-14.8) % Plt Count 206 (150-400) X10^3/uL Neut % (Auto) 76.7 H (50-75) % Lymph % (Auto) 12.1 L (25-40) % [place] % (Auto) 8.7 (3-14) % Eos % (Auto) 1.7 L (2-4) % Baso % (Auto) 0.8 (0-2) % Neut # (Auto) 4500 (4355-1359) /uL Lymph # (Auto) 700 L (0484-9189) /uL [place] # (Auto) 500 (0-900) /uL Eos # (Auto) 100 (0-450) /uL Baso # (Auto) 0 (0-100) /uL Sodium 137 (137-145) mmol/L Potassium 3.6 (3.4-5.1) mmol/L Chloride 110 H (98-107) mmol/L Carbon Dioxide 22 (22-32) mmol/L BUN 18 (9-20) mg/dL Creatinine 0.83 (0.66-1.25) mg/dL Estimated GFR > 60.0 (>60) mL/min BUN/Creatinine Ratio 21.7 (6-22) Glucose 98 (80-110) mg/dL Calcium 9.3 (8.4-10.2) mg/dL Total Creatine Kinase 222 H (55-170) U/L CK-MB (CK-2) 2.60 H (<2.37) ng/mL CK-MB (CK-2) Rel Index 1.2 L (1.5-5.0) % Troponin I 0.019 (0.01-0.034) ng/mL MDM Narrative Medical decision making narrative: Patient with history of hypertension presents at the request of his primary care office for evaluation of high blood pressure. The patient has no symptoms consistent with elevated blood pressure but as he has an appointment tomorrow we discussed doing some basic labs largely to help support decision making at that visit. He was given an extra antihypertensive here and departed with improvement in his blood pressure. He was given extensive return precautions and was in agreement and had understanding with the plan. Discharge Plan Departure Patient Disposition: Home Clinical Impression: Essential hypertension Instructions: DI for High Blood Pressure Activity Restrictions/Additional Instructions: *You have been diagnosed with [asymptomatic hypertension] *What to do: * please increase your losartan to 50 mg twice daily, otherwise Please continue to take your regular medications as directed. *Please follow up with your primary care tomorrow as planned. Let them know you were seen in the Emergency Department and that we ask that you be seen in follow up. We will electronically transmit a record of today's note if your PCP is in our system *Return to Emergency Department if you should have any new, worsening or concerning symptoms, such as [fever greater than 101 F, shaking chills, worsening pain, persistent vomiting or other bothersome symptoms] Prescriptions: No Action cholecalciferol (vitamin D3) [Vitamin D3] 2,000 unit capsule 4,000 unit PO DAILY Qty: 0 RF: 0 furosemide 20 mg tablet 20 mg PO DAILY Qty: 90 RF: 1 warfarin 2 mg tablet See Rx Instructions PO DAILY Qty: 120 RF: 2 warfarin 1 mg tablet See Rx Instructions PO 5XW Qty: 200 RF: 0 methenamine hippurate [Hiprex] 1 gram tablet 1 g PO BID Qty: 90 RF: 3 atorvastatin [Lipitor] 20 mg tablet 20 mg PO BEDTIME Qty: 90 RF: 2 losartan 25 mg tablet 25 mg PO BID RF: 0 ferrous sulfate 325 mg (65 mg iron) tablet 325 mg PO MOTUWETHFR RF: 0 spironolactone 25 mg tablet 25 mg PO DAILY Qty: 90 RF: 3 omeprazole 20 mg capsule,delayed release(DR/EC) 20 mg PO DAILY Qty: 90 RF: 1 acetaminophen 500 mg capsule 1,000 mg PO Q6H PRN (Reason: pain) RF: 0 amiodarone 200 mg tablet 200 mg PO DAILY Qty: 30 RF: 0 carvedilol 12.5 mg tablet 12.5 mg PO BID Qty: 60 RF: 0 tamsulosin [Flomax] 0.4 mg capsule 0.4 mg PO DAILY Qty: 90 RF: 3 Referrals: Maykel Bullock MD [Primary Care Provider] -
[2020-12-12 12:13] VITALS: BP 225/71; PULSE 77; RESP 16; TEMP 36.8; O2SAT 97; BMI 29.5
[2020-12-12] MEDS: LOSARTAN 25 MG TABLET PO (12:26)
[2020-12-12 13:02] VITALS: BP 184/79; PULSE 66; RESP 16; RESP 17; O2SAT 94; O2SAT 95
[2020-12-12 13:19] LABS: Add Manual Diff / Slide Review NO; Basophils Absolute Auto 0 /uL (0-100); Basophils Percent Auto 0.8 % (0-2); Eosinophils Absolute Auto 100 /uL (0-450); Eosinophils Percent Auto 1.7 % (2-4); Hematocrit 37.6 % (41-53); Hemoglobin 12.8 g/dL (13.5-17.5); Lymphocytes Absolute Auto 700 /uL (1100-4500); Lymphocytes Percent Auto 12.1 % (25-40); Mean Corpuscular HGB Conc 34.1 % (30-36); Mean Corpuscular Hemoglobin 32.1 PG (26-34); Mean Corpuscular Volume 93.9 fL (80-100); Monocytes Absolute Auto 500 /uL (0-900); Monocytes Percent Auto 8.7 % (3-14); Neutrophils Absolute Auto 4500 /uL (1500-7000); Neutrophils Percent Auto 76.7 % (50-75); Platelet Count 206 X10^3/uL (150-400); Red Cell Distribution Width 14.1 % (11.6-14.8); White Blood Cell Count 5.9 X10^3/uL (4.5-11.0)
[2020-12-12 13:30] VITALS: PULSE 63; RESP 16; O2SAT 94
[2020-12-12 13:31] LABS: BUN Creatinine Ratio 21.7 (6-22); Blood Urea Nitrogen 18 mg/dL (9-20); Calcium 9.3 mg/dL (8.4-10.2); Carbon Dioxide 22 mmol/L (22-32); Chloride 110 mmol/L (98-107); Creatine Kinase 222 U/L (55-170); Estimated Glomerular Filt Rate > 60.0 mL/min (>60); Glucose 98 mg/dL (80-110); HEMOLYSIS < 15 (0-50); Potassium 3.6 mmol/L (3.4-5.1); Sodium 137 mmol/L (137-145)
[2020-12-12 13:42] LABS: Troponin I 0.019 ng/mL (0.01-0.034)
[2020-12-12 13:46] LABS: CKMB % Relative Index 1.2 % (1.5-5.0)
[2020-12-12 13:54] VITALS: BP 208/82; PULSE 65; RESP 15; O2SAT 94
== END 2020-12-12 14:14 | disposition home or self-care (01) ==
PROVIDERS: Emergency Provider Emergency Medicine; Family Provider Specialist; PCP Student in an Organized Health Care Education/Training Program
DX: I10 Essential (primary) hypertension (principal)
CPT/HCPCS: 36415; 80048; 82550; 82553; 84484; 85025; 93005; 93010; 99283; 99284

== ENCOUNTER 2020-12-18 07:38 | Inpatient (IN) | payer MEDICARE, MEDICAID, SELFPAY ==
[2020-08-16 13:41] VITALS: BMI 25.3
[2020-12-18] VITALS (28 sets, daily range): BP systolic 138–185; BP diastolic 59–82; PULSE 71–102; RESP 15–19; TEMP 36.4–37.9; O2SAT 87–97; BMI 28.8; BMI 28.5
--- NOTE | 2020-12-18 08:21 | ED_ITS ---
HPI - Back Pain/Injury General Chief Complaint: Extremity Injury, Upper Stated Complaint: everything hurts Time Seen by Provider: 12/18/20 07:58 Source: patient Limitations: no limitations History of Present Illness HPI Narrative: Patient complains of constant non reproducible intrascapular pain that radiates to the chest. Has dry heaves. Has nausea and diaphoresis. No dyspnea. No numbness or tingling weakness. Pain also radiates to both arms intermittently. No syncope. No bowel or bladder incontinence or retention. Has had blood in urine. Is on warfarin. No history of aortic dissection or aortic aneurysm. No fall or injury. Related Data Home Medications Medication Instructions Recorded Confirmed cholecalciferol (vitamin D3) 50 4,000 unit PO DAILY #0 cap 10/12/18 12/18/20 mcg (2,000 unit) capsule ferrous sulfate 325 mg (65 mg 325 mg PO MOTUWETHFR tab 12/21/18 12/18/20 iron) tablet acetaminophen 1,000 mg PO Q6H PRN 02/23/19 12/18/20 losartan 50 mg tablet 100 mg PO BID 12/13/20 12/18/20 ascorbate calcium (vitamin C) 1,000 mg PO DAILY 12/18/20 12/18/20 carvedilol 18.75 mg PO BID 12/18/20 12/18/20 omeprazole 20 mg PO BEDTIME 12/18/20 12/18/20 spironolactone 50 mg PO DAILY 12/18/20 12/18/20 warfarin 3 mg PO BEDTIME 12/18/20 12/18/20 Previous Rx's Medication Instructions Recorded furosemide 20 mg tablet 20 mg PO DAILY #90 tab 02/02/19 amiodarone 200 mg PO DAILY #30 tab 02/25/19 tamsulosin 0.4 mg capsule 0.4 mg PO DAILY #90 cap 12/27/19 methenamine hippurate 1 gram tablet 1 g PO BID #90 tab 11/06/20 atorvastatin 20 mg tablet 20 mg PO BEDTIME #90 tab 11/19/20 Allergies Allergy/AdvReac Type Severity Reaction Status Date / Time ciprofloxacin Allergy Severe BREATHING Verified 12/18/20 08:12 PROBLEMS, CHILLS, SHAKES alendronate sodium AdvReac Severe GI bleed Verified 12/18/20 08:12 [ALENDRONATE SODIUM] cephalexin AdvReac Mild Headache Verified 12/18/20 08:12 morphine AdvReac Mild ABD PAIN Verified 12/18/20 08:12 Review of Systems Review of Systems Narrative: GENERAL: Denies chills, fatigue, malaise, fever, sweats. HEENT: Denies sinus pain, ear pain, sore throat RESPIRATORY: Denies dyspnea, cough CARDIOVASCULAR: Complains chest pain, denies palpitations GASTROINTESTINAL: Complaint nausea, denies abdominal pain : Denies dysuria, frequency, hematuria MUSCULOSKELETAL: denies muscle or bony pain SKIN: Denies rash, skin lesions NEUROLOGIC: Denies weakness, numbness ROS Unobtainable: All systems reviewed & are unremarkable except as noted in HPI and below Patient History Medical History Anemia (Unknown) Atrial fibrillation (06/2017) Atrial fibrillation with RVR Cardiomyopathy (06/2017) CHF (congestive heart failure) (~06/2017) Duodenal ulcer (Unknown) Elevated PSA Encephalopathy (Unknown) Foreign body in urethra Gastric ulcer (Unknown) Gastritis (Unknown) History of recurrent UTI (urinary tract infection) Hyperlipemia (Unknown) Hypertension (Unknown) Neurogenic bladder (Unknown) Neurogenic bladder Neuropathy (Unknown) Osteoarthritis (Unknown) Osteopenia (03/2016) Peptic ulcer (Unknown) Pyelonephritis (~2011) Sepsis Surgical History History of bilateral knee replacement (Unknown) History of colon resection History of left hip replacement (Unknown) Hx of shoulder surgery (Unknown) Family History Mother Cancer Social History marital status: unknown household members: none occupational status: previously employed Smoking Status: Never smoker second hand exposure: No alcohol intake: never substance use type: does not use Smoking Status: Never smoker alcohol intake frequency: other Substance Use Type: does not use Exam Narrative Exam Narrative: GENERAL: in no distress, not toxic not dyspneic HEAD: Normocephalic. EYES: Pupils equal round No scleral icterus. No injection no discharge ENT: Mucous membranes moist. NECK: Trachea midline. CARDIOVASCULAR: Regular rate and rhythm without murmurs strong bilateral carotid and radial pulses RESPIRATORY: Clear to auscultation. Breath sounds equal bilaterally. No wheezes, rales, or rhonchi. GASTROINTESTINAL: Abdomen soft, non-tender EXTREMITIES: No gross deformities. BACK: No flank tenderness. No midline tenderness of the thoracic spine. No rash. No pain with movement NEURO: AOx4. SKIN: Warm and dry PSYCH: Not anxious, is cooperative Initial Vital Signs Initial Vital Signs: Vital Signs Pulse Rate 88 12/18/20 07:56 Blood Pressure 156/67 H 12/18/20 07:56 Pulse Oximetry 94 12/18/20 07:56 Course Course Course Narrative: No new issues during course of stay Decision to Admit Date: 12/18/20 Decision to Admit time: 12:11 Orders Ordered: ED Orders 12/18/20 08:59 CT angio chest abdomen pelvis Stat 12/18/20 09:35 COVID19 - ADMIT ([employer] swab/PCR) Stat 12/18/20 12:00 Troponin & CK Cardiac Panel Stat Discontinued Medications Hydromorphone HCl (Hydromorphone 1 Mg Inj) 1 mg IV NOW ONE Stop: 12/18/20 08:20 Last Admin: 12/18/20 08:46 Dose: 1 mg Documented by: YESSI Sodium Chloride (Normal Saline 0.9%) 500 mls @ 1,000 mls/hr IV BOLUS ONE Stop: 12/18/20 08:48 Last Infusion: 12/18/20 10:00 Dose: 0 mls/hr Documented by: Admin: 12/18/20 08:46 Dose: 1,000 mls/hr Documented by: YESSI Phytonadione 10 mg/ Sodium (Chloride) 101 mls @ 202 mls/hr IV NOW ONE Stop: 12/18/20 12:11 Last Infusion: 12/18/20 13:57 Dose: 0 mls/hr Documented by: Admin: 12/18/20 12:38 Dose: 202 mls/hr Documented by: YESSI Metoclopramide HCl (Metoclopramide 10 Mg/2 Ml Inj) 10 mg IV NOW ONE Stop: 12/18/20 08:20 Last Admin: 12/18/20 08:45 Dose: 10 mg Documented by: YESSI Reevaluation(s) Reevaluation #1: Updated patient about treatment plan and admission. He agrees Time: 12:12 Consultations Consultation #1: Spoke with cardiology Dr. Del Rio, recommends admit for stress test and echo Time: 11:11 Consultation #2: Spoke with Dr. key, hospitalist, agrees for admit. Agrees with vitamin K Time: 12:12 Vital Signs Vital signs: Vital Signs - 8 hr 12/18/20 09:34 12/18/20 10:00 12/18/20 10:30 Pulse Rate 71 74 75 Respiratory Rate 16 15 Pulse Oximetry 87 L 94 93 12/18/20 11:00 12/18/20 11:30 Pulse Rate 75 78 Respiratory Rate 16 17 Pulse Oximetry 93 95 MDM - Back Pain/Injury Differential Diagnosis Differential diagnosis: Likely AAA and other (Atypical chest pain) Medical Records Attestation: I reviewed the patient's medical records. Lab Data Attestation: I reviewed the patient's lab results. Result diagrams: 12/18/20 08:05 12/18/20 08:05 Labs: Lab Results 12/18/20 12/18/20 12/18/20 Range/Units 08:05 08:05 08:05 WBC 12.3 H (4.5-11.0) X10^3/uL RBC 4.39 L (4.5-5.9) X10^6/uL Hgb 14.1 (13.5-17.5) g/dL Hct 41.1 (41-53) % MCV 93.4 (80-100) fL MCH 32.2 (26-34) PG MCHC 34.4 (30-36) % RDW 14.9 H (11.6-14.8) % Plt Count 221 (150-400) X10^3/uL Neut % (Auto) 88.2 H (50-75) % Lymph % (Auto) 3.8 L (25-40) % [place] % (Auto) 7.4 (3-14) % Eos % (Auto) 0.3 L (2-4) % Baso % (Auto) 0.3 (0-2) % Neut # (Auto) 98646 H (3457-3777) /uL Lymph # (Auto) 500 L (3881-6497) /uL [place] # (Auto) 900 (0-900) /uL Eos # (Auto) 0 (0-450) /uL Baso # (Auto) 0 (0-100) /uL PT 101.9 H (10.1-12.7) SECONDS INR 8.2 H* (0.9-1.3) APTT 60 H D (26.4-36.2) SECONDS Sodium 143 (137-145) mmol/L Potassium 3.1 L (3.4-5.1) mmol/L Chloride 112 H (98-107) mmol/L Carbon Dioxide 22 (22-32) mmol/L BUN 20 (9-20) mg/dL Creatinine 0.87 (0.66-1.25) mg/dL Estimated GFR > 60.0 (>60) mL/min BUN/Creatinine Ratio 23.0 H (6-22) Glucose 111 H (80-110) mg/dL Calcium 9.5 (8.4-10.2) mg/dL Total Bilirubin 0.6 (0.2-1.3) mg/dL AST 32 (17-59) IU/L ALT 31 (<50) IU/L Alkaline Phosphatase 86 (38-126) U/L Total Creatine Kinase 25 L (55-170) U/L CK-MB (CK-2) TNP CK-MB (CK-2) Rel Index TNP Troponin I 0.039 H (0.01-0.034) ng/mL Total Protein 6.6 (6.3-8.2) g/dL Albumin 3.3 L (3.5-5.0) g/dL Globulin 3.3 (1.7-4.1) g/dL Albumin/Globulin Ratio 1.0 (1.0-2.8) Lipase 24 (23-300) U/L SARS-CoV-2 (PCR) (Negative) 12/18/20 Range/Units 09:35 WBC (4.5-11.0) X10^3/uL RBC (4.5-5.9) X10^6/uL Hgb (13.5-17.5) g/dL Hct (41-53) % MCV (80-100) fL MCH (26-34) PG MCHC (30-36) % RDW (11.6-14.8) % Plt Count (150-400) X10^3/uL Neut % (Auto) (50-75) % Lymph % (Auto) (25-40) % [place] % (Auto) (3-14) % Eos % (Auto) (2-4) % Baso % (Auto) (0-2) % Neut # (Auto) (1421-9901) /uL Lymph # (Auto) (4898-4590) /uL [place] # (Auto) (0-900) /uL Eos # (Auto) (0-450) /uL Baso # (Auto) (0-100) /uL PT (10.1-12.7) SECONDS INR (0.9-1.3) APTT (26.4-36.2) SECONDS Sodium (137-145) mmol/L Potassium (3.4-5.1) mmol/L Chloride (98-107) mmol/L Carbon Dioxide (22-32) mmol/L BUN (9-20) mg/dL Creatinine (0.66-1.25) mg/dL Estimated GFR (>60) mL/min BUN/Creatinine Ratio (6-22) Glucose (80-110) mg/dL Calcium (8.4-10.2) mg/dL Total Bilirubin (0.2-1.3) mg/dL AST (17-59) IU/L ALT (<50) IU/L Alkaline Phosphatase (38-126) U/L Total Creatine Kinase (55-170) U/L CK-MB (CK-2) CK-MB (CK-2) Rel Index Troponin I (0.01-0.034) ng/mL Total Protein (6.3-8.2) g/dL Albumin (3.5-5.0) g/dL Globulin (1.7-4.1) g/dL Albumin/Globulin Ratio (1.0-2.8) Lipase (23-300) U/L SARS-CoV-2 (PCR) Negative (Negative) Imaging Data Chest x-ray: Radiologist's Impression: [address] [id number] ReportSigned Patient: Josh Mcguire EMR#: [id number]: 2Acct:[id number]/Sex: 70 / MDate of Service: 12/18/20Loc: EDAccession Number: [id number] Procedure: XR chest 1V Ordering Provider: Josh Davis MD PROCEDURE: XR CHEST 1V INDICATIONS: cp TECHNIQUE: One view of the chest was acquired. COMPARISON: [facility], CR, XR CHEST 1V, 10/20/2019, 22:32. FINDINGS: Surgical changes and devices: None. Lungs and pleura: Lungs are clear. No pleural effusions or pneumothorax. Mediastinum: Mediastinal contours appear normal. Heart size is normal. Bones and chest wall: No suspicious bony lesions. Overlying soft tissues appear unremarkable. IMPRESSION: No acute cardiopulmonary disease. Dictated by: Mason Godinez M.D. on 12/18/2020 at 8:40 Approved by: Mason Godinez M.D. on 12/18/2020 at 8:40 CT chest abdomen pelvis: Radiologist's Impression: [address] [id number] Scan ReportSigned Patient: Josh Mcguire EMR#: [id number]: 2Acct:[id number]/Sex: 70 / MDate of Service: 12/18/20Loc: EDAccession Number: [id number] Procedure: CT angio chest abdomen pelvis Ordering Provider: Josh Davis MD PROCEDURE: CT ANGIO CHEST ABDOMEN PELVIS INDICATIONS: chest pain dissection TECHNIQUE: Precontrast 5 mm thick sections acquired from the lung apices to the iliac crests. After the administration of intravenous contrast, 2.5 mm thick sections again acquired from the lung apices to the iliac crests. Maximum intensity projection (MIP) oblique sagittal and coronal reformats were then acquired. For radiation dose reduction, the following was used: automated exposure control. COMPARISON: [facility], CT, CT PEL WO CON, 08/16/2020, 11:58. [facility], CT, CT ABDOMEN PELVIS W CON, 10/20/2019, 23:55. [facility], CT, CT ABDOMEN PELVIS WO/W CON, 02/03/2019, 13:28. FINDINGS: Image quality: Excellent. AORTA: The thoracic aorta is mildly aneurysmal. The ascending aorta measures 4.1 cm. The proximal arch measures 3.7 cm in diameter. The distal arch measures 3.5 cm in diameter. The descending aorta tapers to 3.1 cm proximally and 2.7 cm distally. No aortic dissections. CHEST: Lungs and pleura: Mild centrilobular emphysema. Small pleural effusions are present bilaterally. There are bibasilar atelectasis. No acute airspace opacities. No pneumothorax. Central and peripheral airways are patent and normal in caliber. Mediastinum: Heart size is mildly increased. Mild coronary artery calcification. Small pericardial effusion. No mediastinal or hilar adenopathy by size criteria. The pulmonary outflow tract is mildly dilated measuring 3.8 cm in diameter. There is a focal outpouching in the right anterior aspect of the pulmonary outflow tract measuring 2.5 cm. Esophagus is normal in caliber. Esophagus is normal in caliber. No hiatal hernias. Bones and chest wall: No axillary adenopathy by size criteria. Thyroid gland is normal . No suspicious bony lesions. No vertebral body compression fractures. ABDOMEN: Vasculature: Celiac trunk and mesenteric arteries are patent. Renal arteries are also patent. Solid organs: Liver is normal in size and enhancement. Gallbladder is normal . Biliary system is non dilated. Pancreas enhances normally. Spleen is normal in size and enhancement. No adrenal nodules. There is severe left hydronephrosis with left renal cortical thinning. The left is decompressed. The CT findings are consistent with chronic left UPJ obstruction. Right kidney is normal in size and enhancement, without hydronephrosis. Peritoneum and bowel: No free fluid or air. Bowel loops are normal in caliber and wall thickness. Nodes and vessels: No retroperitoneal or mesenteric adenopathy by size criteria. Inferior vena cava is normal in morphology. Miscellaneous: No ventral hernias. PELVIS: Genitourinary: Pelvic organs are partially obscured by metallic artifacts from the left hip prosthesis. Bladder wall thickness is normal. There is a 2.8 cm soft tissue mass like density in the left posterior bladder base. Prostate is enlarged. Miscellaneous: No inguinal hernias or adenopathy. No ventral hernias. Is surgical scar seen in the left lateral thigh. Bones: No suspicious bony lesions. No vertebral body compression fractures. Scoliosis. Moderate degenerative changes in thoracic and lumbar spine. There is left hip arthroplasty with a prosthesis. IMPRESSION: 1. Mild thoracic aortic aneurysm. No aortic dissections. 2. Prominent pulmonary outflow tract measuring 3.8 cm. 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 3. Mild cardiomegaly. 4. Small pericardial effusion. 5. Small pleural effusions bilaterally with bibasilar atelectasis. 6. 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 7. A 2.8 cm soft tissue mass like density in the left posterior bladder base, which is suboptimally visualized. This could be secondary to asymmetric protrusion of e nlarged prostate to the bladder base. Ultrasound is recommended for further evaluation. Dictated by: Mason Godinez M.D. on 12/18/2020 at 10:07 Approved by: Mason Godinez M.D. on 12/18/2020 at 10:27 ECG Data Attestation: I personally reviewed and interpreted this ECG as follows: Interpretation: Normal sinus rhythm, no ST elevation or depression. Left ventricular hypertrophy. MDM Narrative Medical decision making narrative: Appropriate for admission for cause of chest pain workup. 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 Discharge Plan Departure Patient Disposition: Admitted as Observation Clinical Impression: Chest pain Qualifiers: Chest pain type: unspecified Qualified Code(s): R07.9 - Chest pain, unspecified Admit Date/Time: 12/18/20 11:51 Admit Provider: Carine Key
[2020-12-18 08:26] LABS: Add Manual Diff / Slide Review NO; Basophils Absolute Auto 0 /uL (0-100); Basophils Percent Auto 0.3 % (0-2); Eosinophils Absolute Auto 0 /uL (0-450); Eosinophils Percent Auto 0.3 % (2-4); Hematocrit 41.1 % (41-53); Hemoglobin 14.1 g/dL (13.5-17.5); Lymphocytes Absolute Auto 500 /uL (1100-4500); Lymphocytes Percent Auto 3.8 % (25-40); Mean Corpuscular HGB Conc 34.4 % (30-36); Mean Corpuscular Hemoglobin 32.2 PG (26-34); Mean Corpuscular Volume 93.4 fL (80-100); Monocytes Absolute Auto 900 /uL (0-900); Monocytes Percent Auto 7.4 % (3-14); Neutrophils Absolute Auto 10900 /uL (1500-7000); Neutrophils Percent Auto 88.2 % (50-75); Platelet Count 221 X10^3/uL (150-400); Red Blood Cell Count 4.39 X10^6/uL (4.5-5.9); Red Cell Distribution Width 14.9 % (11.6-14.8); White Blood Cell Count 12.3 X10^3/uL (4.5-11.0)
[2020-12-18 08:33] LABS: PTT Partial Thromboplastin Tim 60 SECONDS (26.4-36.2)
[2020-12-18 08:35] LABS: Alanine Aminotransferase 31 IU/L (<50); Albumin 3.3 g/dL (3.5-5.0); Alkaline Phosphatase 86 U/L (38-126); Aspartate Aminotransferase 32 IU/L (17-59); Bilirubin Total 0.6 mg/dL (0.2-1.3); Blood Urea Nitrogen 20 mg/dL (9-20); Calcium 9.5 mg/dL (8.4-10.2); Carbon Dioxide 22 mmol/L (22-32); Chloride 112 mmol/L (98-107); Creatine Kinase 25 U/L (55-170); Estimated Glomerular Filt Rate > 60.0 mL/min (>60); Globulin 3.3 g/dL (1.7-4.1); Glucose 111 mg/dL (80-110); HEMOLYSIS < 15 (0-50); Lipase 24 U/L (23-300); Potassium 3.1 mmol/L (3.4-5.1); Sodium 143 mmol/L (137-145); Total Protein 6.6 g/dL (6.3-8.2)
[2020-12-18 08:44] LABS: INR 8.2 (0.9-1.3); Prothrombin Time 101.9 SECONDS (10.1-12.7)
[2020-12-18] MEDS: METOCLOPRAMIDE 10 MG/2 ML INJ IV (08:45)
[2020-12-18] MEDS: SODIUM CHLORIDE 0.9% 500 ML 1000 ML IV (08:46)
[2020-12-18] MEDS: HYDROMORPHONE 1 MG INJ IV (08:46)
[2020-12-18 08:47] LABS: Troponin I 0.039 ng/mL (0.01-0.034)
--- NOTE | 2020-12-18 08:59 | DI.CT.S_ITS ---
PROCEDURE: CT ANGIO CHEST ABDOMEN PELVIS INDICATIONS: chest pain dissection TECHNIQUE: Precontrast 5 mm thick sections acquired from the lung apices to the iliac crests. After the administration of intravenous contrast, 2.5 mm thick sections again acquired from the lung apices to the iliac crests. Maximum intensity projection (MIP) oblique sagittal and coronal reformats were then acquired. For radiation dose reduction, the following was used: automated exposure control. COMPARISON: [facility], CT, CT PEL WO CON, 08/16/2020, 11:58. [facility], CT, CT ABDOMEN PELVIS W CON, 10/20/2019, 23:55. [facility], CT, CT ABDOMEN PELVIS WO/W CON, 02/03/2019, 13:28. FINDINGS: Image quality: Excellent. AORTA: The thoracic aorta is mildly aneurysmal. The ascending aorta measures 4.1 cm. The proximal arch measures 3.7 cm in diameter. The distal arch measures 3.5 cm in diameter. The descending aorta tapers to 3.1 cm proximally and 2.7 cm distally. No aortic dissections. CHEST: Lungs and pleura: Mild centrilobular emphysema. Small pleural effusions are present bilaterally. There are bibasilar atelectasis. No acute airspace opacities. No pneumothorax. Central and peripheral airways are patent and normal in caliber. Mediastinum: Heart size is mildly increased. Mild coronary artery calcification. Small pericardial effusion. No mediastinal or hilar adenopathy by size criteria. The pulmonary outflow tract is mildly dilated measuring 3.8 cm in diameter. There is a focal outpouching in the right anterior aspect of the pulmonary outflow tract measuring 2.5 cm. Esophagus is normal in caliber. Esophagus is normal in caliber. No hiatal hernias. Bones and chest wall: No axillary adenopathy by size criteria. Thyroid gland is normal . No suspicious bony lesions. No vertebral body compression fractures. ABDOMEN: Vasculature: Celiac trunk and mesenteric arteries are patent. Renal arteries are also patent. Solid organs: Liver is normal in size and enhancement. Gallbladder is normal . Biliary system is non dilated. Pancreas enhances normally. Spleen is normal in size and enhancement. No adrenal nodules. There is severe left hydronephrosis with left renal cortical thinning. The left is decompressed. The CT findings are consistent with chronic left UPJ obstruction. Right kidney is normal in size and enhancement, without hydronephrosis. Peritoneum and bowel: No free fluid or air. Bowel loops are normal in caliber and wall thickness. Nodes and vessels: No retroperitoneal or mesenteric adenopathy by size criteria. Inferior vena cava is normal in morphology. Miscellaneous: No ventral hernias. PELVIS: Genitourinary: Pelvic organs are partially obscured by metallic artifacts from the left hip prosthesis. Bladder wall thickness is normal. There is a 2.8 cm soft tissue mass like density in the left posterior bladder base. Prostate is enlarged. Miscellaneous: No inguinal hernias or adenopathy. No ventral hernias. Is surgical scar seen in the left lateral thigh. Bones: No suspicious bony lesions. No vertebral body compression fractures. Scoliosis. Moderate degenerative changes in thoracic and lumbar spine. There is left hip arthroplasty with a prosthesis. IMPRESSION: 1. Mild thoracic aortic aneurysm. No aortic dissections. 2. Prominent pulmonary outflow tract measuring 3.8 cm. 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 3. Mild cardiomegaly. 4. Small pericardial effusion. 5. Small pleural effusions bilaterally with bibasilar atelectasis. 6. 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 7. A 2.8 cm soft tissue mass like density in the left posterior bladder base, which is suboptimally visualized. This could be secondary to asymmetric protrusion of enlarged prostate to the bladder base. Ultrasound is recommended for further evaluation. Dictated by: Mason Godinez M.D. on 12/18/2020 at 10:07 Approved by: Mason Godinez M.D. on 12/18/2020 at 10:27
[2020-12-18 10:36] LABS: COVID19 - ADMIT (NP swab/PCR) Negative (Negative)
[2020-12-18 12:18] LABS: Creatine Kinase 20 U/L (55-170)
[2020-12-18 12:31] LABS: Troponin I 0.028 ng/mL (0.01-0.034)
[2020-12-18] MEDS: PHYTONADIONE (VIT K1) 10 MG in SODIUM CHLORIDE 0.9% 100 ML 202 ML IV (12:38)
--- NOTE | 2020-12-18 15:43 | PC.NURSE ---
1500 - Pt to room from ER. Transfer to bed via slider board. Alert, oriented. C/o pain to right shoulder. Oriented to room and routine, safety and call light use. Call light in reach. Bed alarm on. Reports fall in July or August. Ambulates with crutches.
[2020-12-18] MEDS: NITROGLYCERIN 0.4 MG SL TAB SL ×2 (18:25→18:35)
[2020-12-18 18:50] LABS: Creatine Kinase 21 U/L (55-170)
[2020-12-18 19:03] LABS: Troponin I 0.028 ng/mL (0.01-0.034)
[2020-12-18] MEDS: HYDROMORPHONE 0.5 MG INJ IV (19:47)
[2020-12-18 19:59] LABS: Magnesium 1.8 mg/dL (1.6-2.3)
[2020-12-18 20:01] LABS: Hemoglobin A1C% w Est Avg Glu 5.3 % (4.0-6.0)
[2020-12-18] MEDS: POTASSIUM CHLORIDE IN WATER 10 MEQ/100 ML PIGGYBACK 100 MEQ IV ×3 (20:14→23:32)
[2020-12-18 20:29] LABS: Thyroid Stimulating Hormone 2.24 uIU/mL (0.47-4.68)
[2020-12-18] MEDS: POTASSIUM CHLORIDE 20 MEQ TAB 40 MEQ PO (20:43)
[2020-12-18] MEDS: ASCORBIC ACID 500 MG TABLET PO (21:39)
[2020-12-18] MEDS: LOSARTAN 50 MG TABLET 100 MG PO (21:39)
[2020-12-18] MEDS: ATORVASTATIN 20 MG TABLET PO (21:39)
[2020-12-18] MEDS: carvediloL 12.5 MG TABLET 18.75 MG PO (21:45)
[2020-12-18] MEDS: PANTOPRAZOLE DR 20 MG TABLET PO (21:46)
--- NOTE | 2020-12-18 22:57 | PC.NURSE ---
Patient complaining of chest pain that reaches across to both arms. He states it is an 8/10 pain. Auscultated 88 bpm and bounding pulse. His chest was moving with each beat and patient was very uncomfortable. No orders for nitro or pain medication so discussed with Dr. Key and MARIZOL Ramon. EKG ordered as well as nitro and dilaudid for pain. Nitro x2 given with blood pressures stable around 139/60 but heart rate increasing to 110s. Some small improvement with nitro. Dilaudid more effective. STAT labs done and trops came back normal. Plan for ECHO and stress test tomorrow.
--- NOTE | 2020-12-18 23:55 | P.HP_ITS ---
History of Present Illness History of Present Illness Date Patient Seen: 12/18/20 Time Patient Seen: 19:00 Chief complaint: everything hurts Narrative: Josh Mcguire Is a 70 year old male with atrial fibrillation, dilated cardiomyopathy, hypertension, probable coronary artery disease, hyperlipidemia presented today with chest pain that started 2 days ago. He stated it cleared up on Thursday and then on Thursday which was the day of admission he had really bad chest pain that was not relieving itself at all. He describes the pain as extending across his upper chest and that his heart is pounding like crazy. It is relieved with 2 doses of nitroglycerin and hydromorphone IV. He states that morphine makes him very sick.He asked for his cousin to bring him in. He stated he had dry heaves worsened when drinking fluids, sweating, nausea but no vomiting, denies dysuria, diarrhea constipation. CT of the chest abdomen and pelvis indicated the following findings: 1. Mild thoracic aortic aneurysm. No aortic dissections. 2. Prominent pulmonary outflow tract measuring 3.8 cm. 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 3. Mild cardiomegaly. 4. Small pericardial effusion. 5. Small pleural effusions bilaterally with bibasilar atelectasis. 6. 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 7. A 2.8 cm soft tissue mass like density in the left posterior bladder base, which is suboptimally visualized. This could be secondary to asymmetric protrusion of enlarged prostate to the bladder base. Ultrasound is recommended for further evaluation. EKG indicated normal sinus rhythm with left ventricular hypertrophy and a prolonged QT that EKG was reported to not be of significant change from prior. Patient is febrile at 100.2 blood pressure 152/65, heart rate 80, respiratory rate 16, oxygen saturation of 97% on 1 L, he weighs 87.5 kg with a BMI of 28.5. Still UC is elevated at 12.3, he does have about mild left shift, patient is anticoagulated with an INR of 8.2, sodium 143, potassium 3.1, chloride 112, CO2 22, BUN 20, creatinine 0.87, with GFR greater than 60, glucose is 111, hemoglobin A1c is 5.3, admission troponin was 0.039 and subsequent troponins were 0.028, UA is pending, and COVID-19 PCR is negative. Patient sees Dr. Del Rio, [facility]. He has a history of undergoing KARINA cardioversion in 2017 which found a mildly dilated left ventricle with a LE VF of 30-35%, mild mitral valve prolapse, mild mitral regurgitation, aortic root diameter 5.0 cm with a moderate aortic regurgitation. He also underwent a echoc ardiogram in 2019 which indicated improve LV function of 40-45%. In December of 2017 he had a pharmacological perfusion study that indicated no reversible ischemia but that there was a predominantly fixed anterior wall and inferior apical defect with no wall motion abnormalities. He undergoes echocardiography annually. Patient History Medical History Anemia (Unknown) Atrial fibrillation (06/2017) Atrial fibrillation with RVR Cardiomyopathy (06/2017) CHF (congestive heart failure) (~06/2017) Duodenal ulcer (Unknown) Elevated PSA Encephalopathy (Unknown) Foreign body in urethra Gastric ulcer (Unknown) Gastritis (Unknown) History of recurrent UTI (urinary tract infection) Hyperlipemia (Unknown) Hypertension (Unknown) Neurogenic bladder (Unknown) Neurogenic bladder Neuropathy (Unknown) Osteoarthritis (Unknown) Osteopenia (03/2016) Peptic ulcer (Unknown) Pyelonephritis (~2011) Sepsis Surgical History History of bilateral knee replacement (Unknown) History of colon resection History of left hip replacement (Unknown) Hx of shoulder surgery (Unknown) Family & Social History Family History (Updated 12/19/20 @ 00:15 by MARIZOL Prasad) Mother Cancer Medical history unknown Father Medical history unknown Social History: household members none Prior Living Arrangements Apartment/Condo Safety & Behavioral: Feels Safe in Current Yes Environment Been Physically Hurt or No Threatened By a Person Suicidal Ideation Description None Tobacco & Substance use: Smoking Status Never smoker alcohol intake never alcohol intake frequency other Substance Use Type does not use Meds Home Medications and Allergies Home Medications Medication Instructions Recorded Confirmed Type cholecalciferol (vitamin D3) 50 4,000 unit PO DAILY #0 cap 10/12/18 12/18/20 History mcg (2,000 unit) capsule ferrous sulfate 325 mg (65 mg 325 mg PO MOTUWETHFR tab 12/21/18 12/18/20 History iron) tablet furosemide 20 mg tablet 20 mg PO DAILY #90 tab 02/02/19 12/18/20 Rx acetaminophen 1,000 mg PO Q6H PRN 02/23/19 12/18/20 History amiodarone 200 mg PO DAILY #30 tab 02/25/19 12/18/20 Rx tamsulosin 0.4 mg capsule 0.4 mg PO DAILY #90 cap 12/27/19 12/18/20 Rx methenamine hippurate 1 gram tablet 1 g PO BID #90 tab 11/06/20 12/18/20 Rx atorvastatin 20 mg tablet 20 mg PO BEDTIME #90 tab 11/19/20 12/18/20 Rx losartan 50 mg tablet 100 mg PO BID 12/13/20 12/18/20 History ascorbate calcium (vitamin C) 1,000 mg PO DAILY 12/18/20 12/18/20 History carvedilol 18.75 mg PO BID 12/18/20 12/18/20 History omeprazole 20 mg PO BEDTIME 12/18/20 12/18/20 History spironolactone 50 mg PO DAILY 12/18/20 12/18/20 History warfarin 3 mg PO BEDTIME 12/18/20 12/18/20 History Allergies Allergy/AdvReac Type Severity Reaction Status Date / Time ciprofloxacin Allergy Severe BREATHING Verified 12/18/20 08:12 PROBLEMS, CHILLS, SHAKES alendronate sodium AdvReac Severe GI bleed Verified 12/18/20 08:12 [ALENDRONATE SODIUM] cephalexin AdvReac Mild Headache Verified 12/18/20 08:12 morphine AdvReac Mild ABD PAIN Verified 12/18/20 08:12 Review of Systems Review of Systems ROS: Yes All systems reviewed with the patient and are negative except as otherwise documented Exam Vital Signs (past 8 hours): - 12/18/20 16:30 12/18/20 18:25 12/18/20 18:35 Temperature 97.5 F L Pulse Rate 84 100 H 102 H Respiratory Rate 18 Blood Pressure 180/74 H 139/60 141/67 H Pulse Oximetry 96 12/18/20 18:40 12/18/20 20:24 12/18/20 21:39 Temperature 98.4 F Pulse Rate 90 88 Respiratory Rate 16 Blood Pressure 139/75 138/59 L 153/74 H Pulse Oximetry 95 12/18/20 23:28 Temperature 100.2 F H Pulse Rate 80 Respiratory Rate 16 Blood Pressure 152/65 H Pulse Oximetry 97 Oxygen Delivery Method Nasal Cannula Oxygen Flow Rate 1 Narrative Exam Narrative: Gen: Alert, oriented, chronically ill appearing 70 y.o. male, very anxious HEENT: normocephalic, atraumatic, conjunctiva clear, sclera non-icteric, oral mucosa pink and moist Neck: supple, full ROM, no JVD, but visible pulsations bilaterally, trachea is midline Resp: Lungs CTA, non-labored breathing CV: Bounding pulse, tachy, no murmur or rubs Abd: soft, non-tender, normoactive BTs Skin: no lesions or rashes, dry and intact Neuro: Alert and oriented X 4 w/no focal deficits. Speech clear and coherent. Extremities: moves all 4 extremities, is ambulatory, negative Meron?s sign Psyche: normal mood and affect. Objective Labs Result Diagrams: 12/18/20 08:05 12/18/20 08:05 Labs: Laboratory Results - last 24 hr 12/18/20 12/18/20 12/18/20 08:05 08:05 08:05 WBC 12.3 H RBC 4.39 L Hgb 14.1 Hct 41.1 MCV 93.4 MCH 32.2 MCHC 34.4 RDW 14.9 H Plt Count 221 Neut % (Auto) 88.2 H Lymph % (Auto) 3.8 L [place] % (Auto) 7.4 Eos % (Auto) 0.3 L Baso % (Auto) 0.3 Neut # (Auto) 75900 H Lymph # (Auto) 500 L [place] # (Auto) 900 Eos # (Auto) 0 Baso # (Auto) 0 PT 101.9 H INR 8.2 H* APTT 60 H D Sodium 143 Potassium 3.1 L Chloride 112 H Carbon Dioxide 22 BUN 20 Creatinine 0.87 Estimated GFR > 60.0 BUN/Creatinine Ratio 23.0 H Glucose 111 H Hemoglobin A1c Calcium 9.5 Magnesium Total Bilirubin 0.6 AST 32 ALT 31 Alkaline Phosphatase 86 Total Creatine Kinase 25 L CK-MB (CK-2) TNP CK-MB (CK-2) Rel Index TNP Troponin I 0.039 H Total Protein 6.6 Albumin 3.3 L Globulin 3.3 Albumin/Globulin Ratio 1.0 Lipase 24 TSH SARS-CoV-2 (PCR) 12/18/20 12/18/20 12/18/20 08:05 08:05 08:05 WBC RBC Hgb Hct MCV MCH MCHC RDW Plt Count Neut % (Auto) Lymph % (Auto) [place] % (Auto) Eos % (Auto) Baso % (Auto) Neut # (Auto) Lymph # (Auto) [place] # (Auto) Eos # (Auto) Baso # (Auto) PT INR APTT Sodium Potassium Chloride Carbon Dioxide BUN Creatinine Estimated GFR BUN/Creatinine Ratio Glucose Hemoglobin A1c 5.3 Calcium Magnesium 1.8 Total Bilirubin AST ALT Alkaline Phosphatase Total Creatine Kinase CK-MB (CK-2) CK-MB (CK-2) Rel Index Troponin I Total Protein Albumin Globulin Albumin/Globulin Ratio Lipase TSH 2.24 SARS-CoV-2 (PCR) 12/18/20 12/18/20 12/18/20 09:35 12:00 18:30 WBC RBC Hgb Hct MCV MCH MCHC RDW Plt Count Neut % (Auto) Lymph % (Auto) [place] % (Auto) Eos % (Auto) Baso % (Auto) Neut # (Auto) Lymph # (Auto) [place] # (Auto) Eos # (Auto) Baso # (Auto) PT INR APTT Sodium Potassium Chloride Carbon Dioxide BUN Creatinine Estimated GFR BUN/Creatinine Ratio Glucose Hemoglobin A1c Calcium Magnesium Total Bilirubin AST ALT Alkaline Phosphatase Total Creatine Kinase 20 L 21 L CK-MB (CK-2) TNP TNP CK-MB (CK-2) Rel Index TNP TNP Troponin I 0.028 0.028 Total Protein Albumin Globulin Albumin/Globulin Ratio Lipase TSH SARS-CoV-2 (PCR) Negative Assessment & Plan Assessment & Plan narrative: Josh Mcguire is admitted for a chest pain rule out, reversal of his INR, in addition to further workup of now being febrile with an elevated white count to further identify possible source of infection. 1. Chest pain r/o ACS, acute, present on admission * Admission troponin were negative at 0.028, third elevated at 0.035, will continue to trend, possibly due to demand ischemia associated with infection * Echo in am * Pharmacological stress test * Start ASA 81 mg * Received nitro X in the upon arrival to the floor with partial resolution, he also received low dose IV dilaudid with acceptable level of pain resolution 2. Complicated and recurrent urinary tract infection, acute and present on admi ssion * Procacitonin was markedly elevated at 10.3 * Due to patient's stated allergy to ceftriaxone and cipro, he was started on IV zosyn 3.375 mg q 6 hours * Lactate pending and will be trended 3. Hypertension, chronic * Start/continue amiodarone 200 mg p.o. daily, and carvedilol 12.5 mg, 1.5 tablets p.o. b.i.d. 4. HLD * Lipid panel, pending * Start atorvastatin 40 mg po at bedtime increased from 20 mg daily 5. Risk stratification * Fasting lipid panel, pending for 5 am. * A1c 5.3% VTE prophylaxis: Wells risk score: 1.5 Pharmacological VTE held due to patient's supratherapeutic INR. Bilateral SCDs Consults: none Patient is admitted under inpatient status with expected length of stay greater than 2 midnights due to severity of presenting symptoms, risk of adverse event, and complexity of treatment plan. FEN: IV saline lock, heart healty diet, BMP and magnesium in the am. Dispo: unknown at this time Code Status: Full code as discussed with patient, states POLST is for DNR, but wishes to be full code. Scores Wells' Criteria for PE Clinical signs and symptoms of DVT: No PE is #1 Dx or equally likely: No Heart rate > 100: Yes Immobilization at least 3 days or surg in previous 4 weeks: No History of PE or DVT: No Hemoptysis: No Malignancy w/Treatment within 6 months or palliative: No Wells' PE Score total: 1.5 Quality VTE Deep Vein Thrombosis/Pulmonary Embolism Present on Admission: No MIPS - Admit I confirm the patient?s Advance Care Plan is present, Code status is documented, Surrogate decision maker is in patient?s record [If Yes, STOP here]: Yes
[2020-12-19] VITALS (14 sets, daily range): BP systolic 147–167; BP diastolic 59–74; PULSE 72–107; RESP 16–20; TEMP 36.4–39.3; O2SAT 93–97
--- NOTE | 2020-12-19 | DI.ECHO.S_ITS ---
[facility] +---------+ : : [address] : : : : [id number] : : : : Phone: [phone]+ Echocardiogram Report + + :Name: EULOGIO BENAVIDEZ Study Date: 12/19/2020 Height: 69 in : :[facility] ReadingLocation: Weight: 192 lb : : Gender: Male BSA: 2.0 m2 : :: 1950 Age: 70 yrs BP: 153/47 mmHg: :Reason For Study: CHEST PAIN : :Ordering Physician: Atif ESPINALformed By: Ni Zuluaga : :Referring: NESSA ESPINAL : + + Interpretation Summary This is a limited echocardiogram focused on reassessment of left ventricular systolic function and aortic regurgitation. The left ventricle remains moderately enlarged but smaller compared to the previous study now with an end-diastolic volume of 243 mL, down from 343 mL previously. There is mild concentric LVH with mildly reduced systolic function with an EF of around 45 to 50% in a global fashion with a significant dyssynchronous contraction pattern but no obvious focal wall motion abnormality and appears slightly more dynamic compared to the previous study. Left ventricular global longitudinal strain is borderline abnormal at -17.4%, similar to the previous -16.8%. The right ventricle grossly appears normal in size and systolic function and unchanged from the previous exam. There is moderate left atrial enlargement that is unchanged from the previous exam. Right atrial size is normal and smaller compared to the previous study. The aortic valve appears mildly calcified with good leaflet mobility. There is probable moderate to severe aortic regurgitation with a somewhat eccentric regurgitant jet that appears unchanged from the previous study. The ascending aorta remains moderately enlarged at 4.5 cm, measuring slightly larger compared to the previous study. The patient was in sinus rhythm at 85 to 100 bpm which is slightly faster compared to the previous study. Procedure: The study quality was technically adequate. Comparison is made with the echocardiogram of 01/03/2020. A two-dimensional transthoracic echocardiogram with color flow and Doppler was performed in limited views only to assess ejection fraction and aortic regurgitation.. The heart rate ranged between 87-102 bpm during the study. Left Ventricle: The left ventricle is moderately dilated. This is smaller compared to the previous study. The estimated left ventricular end diastolic volume is 243 mL, down from 343 ml. There is mild concentric left ventricular hypertrophy. The ejection fraction is estimated to be 45-50%. Left ventricular systolic function is mildly reduced. Left ventricular global longitudinal strain average is normal at -17.4% (normal is more negative than -20%). There is mild global hypokinesis of the left ventricle. There is a significant dyssynchronous contraction pattern, consistent with a conduction abnormality. There are no focal wall motion abnormalities. This is slightly more dynamic compared to the previous study. Right Ventricle: The right ventricle grossly appears normal in size with probable normal systolic function. This is unchanged compared to the previous study. Atria: The left atrium is moderately dilated. This is unchanged compared to the previous study. Right atrial size is normal. The right atrium has significantly decreased in size since the prior echo exam. Aortic Valve: The aortic valve opens well. The aortic valve is mildly calcified. There is moderate to severe aortic regurgitation. This is unchanged compared to the previous study. Great Vessels: The aortic root is moderately dilated. The ascending aorta is moderately enlarged. Pericardium/ Pleura There is no pericardial effusion. There is no pleural effusion. MMode/2D Measurements & Calculations LVIDd: 6.2 cm LVOT diam: 2.9 cm LVIDs: 4.8 cm Ao root diam: 4.7 cm FS: 22.8 % asc Aorta Diam: 4.5 cm IVSd: 1.2 cm LVPWd: 1.1 cm LV fulton. diameter/BSA (cm/m^2): 3.0 LV sys. diameter/BSA (cm/m^2): 2.3 LA A2 area: 24.8 cm2 RA long axis: 5.2 cm LA A4 area: 17.9 cm2 RA area: 16.0 cm2 LA length (vol): 4.4 cm RA vol: 41.9 ml LA vol: 85.9 ml RA : 20.6 ml/m2 LA vol index: 42.3 ml/m2 RVD1 (basal): 3.9 cm TAPSE: 2.3 cm Reading Physician:09:47 AM
[2020-12-19 00:52] LABS: Bacteria Urine Many (>30); Culture Indicated Urine Specimen Cultured; RBC Urine 5-10/HPF (0-5/HPF); WBC Urine 10-30/HPF (0-5/HPF)
[2020-12-19 01:07] LABS: Troponin I 0.035 ng/mL (0.01-0.034)
[2020-12-19 01:11] LABS: Procalcitonin 10.3 ng/mL (<0.5)
[2020-12-19] MEDS: POTASSIUM CHLORIDE IN WATER 10 MEQ/100 ML PIGGYBACK 100 MEQ IV (01:15)
[2020-12-19 01:47] LABS: Lactate (Lactic Acid) 0.6 mmol/L (0.7-2.1)
[2020-12-19] MEDS: PIPERACILLIN/TAZO 4.5 GM in SODIUM CHLORIDE 0.9% 100 ML 200 ML IV (02:30)
[2020-12-19] MEDS: MELATONIN 3 MG TABLET 6 MG PO ×3 (02:47→23:57)
[2020-12-19] MEDS: SODIUM CHLORIDE 0.9% FLUSH 10 ML IV ×4 (02:54→20:28)
[2020-12-19] MEDS: ACETAMINOPHEN 325 MG TABLET 650 MG PO (03:47)
--- NOTE | 2020-12-19 05:09 | PC.NURSE ---
Did not sleep well, even after medicated with 6 mg. of Melatonin. Temp. 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 Rechecked his temperature down to 99.8, cont. to deny any chest pain & shoulder pain, no C/O nausea & dyspnea. Awake most of the quarter backer, will continue POC & monitor.
[2020-12-19 05:39] LABS: Add Manual Diff / Slide Review NO; Basophils Absolute Auto 0 /uL (0-100); Basophils Percent Auto 0.3 % (0-2); Eosinophils Absolute Auto 100 /uL (0-450); Eosinophils Percent Auto 0.7 % (2-4); Hematocrit 35.6 % (41-53); Hemoglobin 12.3 g/dL (13.5-17.5); Lymphocytes Absolute Auto 600 /uL (1100-4500); Lymphocytes Percent Auto 5.4 % (25-40); Mean Corpuscular HGB Conc 34.4 % (30-36); Mean Corpuscular Hemoglobin 32.3 PG (26-34); Mean Corpuscular Volume 93.7 fL (80-100); Monocytes Absolute Auto 1100 /uL (0-900); Monocytes Percent Auto 10.7 % (3-14); Neutrophils Absolute Auto 8900 /uL (1500-7000); Neutrophils Percent Auto 82.9 % (50-75); Platelet Count 224 X10^3/uL (150-400); Red Cell Distribution Width 14.9 % (11.6-14.8); White Blood Cell Count 10.8 X10^3/uL (4.5-11.0)
[2020-12-19 05:51] LABS: INR 1.3 (0.9-1.3); Prothrombin Time 14.7 SECONDS (10.1-12.7)
[2020-12-19 06:01] LABS: BUN Creatinine Ratio 19.3 (6-22); Blood Urea Nitrogen 16 mg/dL (9-20); Calcium 8.5 mg/dL (8.4-10.2); Carbon Dioxide 24 mmol/L (22-32); Chloride 109 mmol/L (98-107); Cholesterol 94 mg/dL (140-199); Estimated Glomerular Filt Rate > 60.0 mL/min (>60); Glucose 117 mg/dL (80-110); HDL Cholesterol 35 mg/dL (40-60); HEMOLYSIS < 15 (0-50); LDL Cholesterol Calculated 45 mg/dL (<100); Magnesium 1.8 mg/dL (1.6-2.3); Potassium 3.6 mmol/L (3.4-5.1); Sodium 138 mmol/L (137-145); Triglycerides 68 mg/dL (35-150)
[2020-12-19] MEDS: PANTOPRAZOLE DR 20 MG TABLET PO ×2 (06:03→20:30)
[2020-12-19] MEDS: SODIUM CHLORIDE 0.9% 250 ML 21 ML IV (06:05)
[2020-12-19] MEDS: PIPERACILLIN/TAZO 3.375 GM in SODIUM CHLORIDE 0.9% 100 ML 25 ML IV ×3 (06:05→23:16)
[2020-12-19 06:09] LABS: Troponin I 0.043 ng/mL (0.01-0.034)
[2020-12-19] MEDS: TAMSULOSIN 0.4 MG CAPSULE PO (08:33)
[2020-12-19] MEDS: ASCORBIC ACID 500 MG TABLET PO ×2 (08:33→20:30)
[2020-12-19] MEDS: AMIODARONE 200 MG TABLET PO (08:33)
[2020-12-19] MEDS: LOSARTAN 50 MG TABLET 100 MG PO ×2 (08:34→20:28)
[2020-12-19] MEDS: ASPIRIN EC 81 MG TABLET PO (08:34)
[2020-12-19] MEDS: HYDROMORPHONE 0.5 MG INJ IV ×2 (08:39→21:44)
--- NOTE | 2020-12-19 13:34 | PM.CN ---
History of Present Illness Consult details Date Patient Seen: 12/19/20 Time Patient Seen: 13:36 Chief complaint: everything hurts Reason for consult: Chest pain, abnormal ECG, elevated troponins Requesting provider: Carine Key Narrative: Patient admitted with chest pain that started two days prior to admission. Blood pressures were reportedly in the 200s/100s. Patient tells me the pain is 15/10 in his anterior chest, bilateral shoulders, through to his back and radiating to his neck. Associated symptoms are nausea and dry heaves and sweating. Pain comes on at rest. He says everything hurts. He was febrile at 100.4 with an elevated WBC of 12.3 with a mild left shift on admission. Pain has improved with SL nitroglycerin x2. He is allergic to morphine and has been receiving IV hydromorphone. ECG shows sinus rhythm in the 90s-100s with left ventricular hypertrophy, Q waves and horizontal/downsloping ST depression in inferior and lateral leads. Troponins are trending up at 0.028, 0.035, 0.[address] chest and abdomen showed mild thoracic aneurysm but no aortic dissections. History is significant for atrial fibrillation/flutter, hypertension, chronic systolic heart failure, mitral valve prolapse and dilated cardiomyopathy with an EF of 30-35% in June 2017. A perfusion study from December 2017 showed a predominantly fixed inferior wall and inferior apical defect better on prone and worse on supine images. There were no obvious regional wall motion abnormalities. June 2018 echo showed EF of 50-55%. Ascending aorta was 4.3 cm. He developed atrial flutter with a rate of 144 bpm for which he was seen in the ER in January 2019 and converted after an amiodarone bolus and diltiazem drip. EF by D2 echo was 35-40%. Labs showed elevated troponins thought secondary to demand ischemia and resolved by discharge. Patient is followed by Dr. Del Rio and saw him last in December 2019. ECG at that visit showed sinus rhythm with first-degree AV block with GUERLINE of 254 ms with voltage criteria for LVF and nonspecific ST-T changes and QTC ms. Cardiac Risk Factors: 1. Hypertension: Previous controlled but with recent blood pressures of 200s/100s reportedly prior to admission. 2. Dyslipidemia: On atorvastatin 20 mg daily. Lipid panel 04/10/20 showed cholesterol 114, HDL 55, LDL 45, triglycerides 69. 3. Smoking: Patient has never smoked. 4. Diabetes: No known history of diabetes. 5. Overweight: BMI 28.35 6. Patient is sedentary. Socially, patient lives alone. His cousin brought him to the hospital. His sister, Deyanira Nevarez [phone] lives in the area as well. He does not smoke or drink. Denies illicit drugs. Family history is positive for father with heart disease but patient does not recall specifics. Meds Home Medications and Allergies Home Medications Medication Instructions Recorded Confirmed Type cholecalciferol (vitamin D3) 50 4,000 unit PO DAILY #0 cap 10/12/18 12/18/20 History mcg (2,000 unit) capsule ferrous sulfate 325 mg (65 mg 325 mg PO MOTUWETHFR tab 12/21/18 12/18/20 History iron) tablet furosemide 20 mg tablet 20 mg PO DAILY #90 tab 02/02/19 12/18/20 Rx acetaminophen 1,000 mg PO Q6H PRN 02/23/19 12/18/20 History amiodarone 200 mg PO DAILY #30 tab 02/25/19 12/18/20 Rx tamsulosin 0.4 mg capsule 0.4 mg PO DAILY #90 cap 12/27/19 12/18/20 Rx methenamine hippurate 1 gram tablet 1 g PO BID #90 tab 11/06/20 12/18/20 Rx atorvastatin 20 mg tablet 20 mg PO BEDTIME #90 tab 11/19/20 12/18/20 Rx losartan 50 mg tablet 100 mg PO BID 12/13/20 12/18/20 History ascorbate calcium (vitamin C) 1,000 mg PO DAILY 12/18/20 12/18/20 History carvedilol 18.75 mg PO BID 12/18/20 12/18/20 History omeprazole 20 mg PO BEDTIME 12/18/20 12/18/20 History spironolactone 50 mg PO DAILY 12/18/20 12/18/20 History warfarin 3 mg PO BEDTIME 12/18/20 12/18/20 History Allergies Allergy/AdvReac Type Severity Reaction Status Date / Time ciprofloxacin Allergy Severe BREATHING Verified 12/18/20 08:12 PROBLEMS, CHILLS, SHAKES alendronate sodium AdvReac Severe GI bleed Verified 12/18/20 08:12 [ALENDRONATE SODIUM] cephalexin AdvReac Mild Headache Verified 12/18/20 08:12 morphine AdvReac Mild ABD PAIN Verified 12/18/20 08:12 Review of Systems Cardiovascular Cardiovascular: Reports as per HPI Respiratory Respiratory: Reports system reviewed and no additional complaints, except as documented Gastrointestinal Gastrointestinal: Reports system reviewed and no additional complaints, except as documented Exam Vital Signs (past 8 hours): - 12/19/20 07:40 12/19/20 08:34 12/19/20 11:04 Temperature 98.8 F Pulse Rate 105 H 107 H Respiratory Rate 20 Blood Pressure 147/68 H 147/68 H Pulse Oximetry 94 94 12/19/20 11:52 Temperature 98.4 F Pulse Rate 91 H Respiratory Rate 18 Blood Pressure 155/71 H Pulse Oximetry 94 Oxygen Delivery Method Room Air Oxygen Flow Rate 1 Narrative Exam Narrative: Pale appearing 70-year-old gentleman with a posture of pain. Cardiovascular: Regular rate and rhythm, 2-3/6 early diastolic murmur in the second aortic area, bounding radial, femoral and posterior tibial pulses. JVD to ear. Lungs: Decreased air entry to bases. Abdomen: Obese, soft, nontender. Positive hepatojugular reflux. Extremities: Warm and dry. 1+ pedal edema. Posterior tibial pulses 3+ bilaterally. Objective Labs Result Diagrams: 12/19/20 14:51 12/19/20 05:00 Labs: Laboratory Results - last 24 hr 12/18/20 12/18/20 12/18/20 08:05 08:05 08:05 WBC RBC Hgb Hct MCV MCH MCHC RDW Plt Count Neut % (Auto) Lymph % (Auto) [place] % (Auto) Eos % (Auto) Baso % (Auto) Neut # (Auto) Lymph # (Auto) [place] # (Auto) Eos # (Auto) Baso # (Auto) PT INR Sodium Potassium Chloride Carbon Dioxide BUN Creatinine Estimated GFR BUN/Creatinine Ratio Glucose Hemoglobin A1c 5.3 Lactate Calcium Magnesium 1.8 Total Creatine Kinase CK-MB (CK-2) CK-MB (CK-2) Rel Index Troponin I Triglycerides Cholesterol LDL Cholesterol, Calc HDL Cholesterol Procalcitonin TSH 2.24 Urine RBC Urine WBC Urine Bacteria Ur Culture Indicated? 12/18/20 12/18/20 12/19/20 18:30 23:45 00:30 WBC RBC Hgb Hct MCV MCH MCHC RDW Plt Count Neut % (Auto) Lymph % (Auto) [place] % (Auto) Eos % (Auto) Baso % (Auto) Neut # (Auto) Lymph # (Auto) [place] # (Auto) Eos # (Auto) Baso # (Auto) PT INR Sodium Potassium Chloride Carbon Dioxide BUN Creatinine Estimated GFR BUN/Creatinine Ratio Glucose Hemoglobin A1c Lactate Calcium Magnesium Total Creatine Kinase 21 L CK-MB (CK-2) TNP CK-MB (CK-2) Rel Index TNP Troponin I 0.028 Triglycerides Cholesterol LDL Cholesterol, Calc HDL Cholesterol Procalcitonin 10.3 H TSH Urine RBC 5-10/hpf H Urine WBC 10-30/hpf H Urine Bacteria Many (>30) H Ur Culture Indicated? Specimen cultured 12/19/20 12/19/20 12/19/20 00:30 00:30 05:00 WBC 10.8 RBC 3.80 L Hgb 12.3 L Hct 35.6 L MCV 93.7 MCH 32.3 MCHC 34.4 RDW 14.9 H Plt Count 224 Neut % (Auto) 82.9 H Lymph % (Auto) 5.4 L [place] % (Auto) 10.7 Eos % (Auto) 0.7 L Baso % (Auto) 0.3 Neut # (Auto) 8900 H Lymph # (Auto) 600 L [place] # (Auto) 1100 H Eos # (Auto) 100 Baso # (Auto) 0 PT INR Sodium Potassium Chloride Carbon Dioxide BUN Creatinine Estimated GFR BUN/Creatinine Ratio Glucose Hemoglobin A1c Lactate 0.6 L Calcium Magnesium Total Creatine Kinase CK-MB (CK-2) CK-MB (CK-2) Rel Index Troponin I 0.035 H Triglycerides Cholesterol LDL Cholesterol, Calc HDL Cholesterol Procalcitonin TSH Urine RBC Urine WBC Urine Bacteria Ur Culture Indicated? 12/19/20 12/19/20 12/19/20 05:00 05:00 05:00 WBC RBC Hgb Hct MCV MCH MCHC RDW Plt Count Neut % (Auto) Lymph % (Auto) [place] % (Auto) Eos % (Auto) Baso % (Auto) Neut # (Auto) Lymph # (Auto) [place] # (Auto) Eos # (Auto) Baso # (Auto) PT 14.7 H D INR 1.3 Sodium 138 Potassium 3.6 Chloride 109 H Carbon Dioxide 24 BUN 16 Creatinine 0.83 Estimated GFR > 60.0 BUN/Creatinine Ratio 19.3 Glucose 117 H Hemoglobin A1c Lactate Calcium 8.5 Magnesium 1.8 Total Creatine Kinase CK-MB (CK-2) CK-MB (CK-2) Rel Index Troponin I 0.043 H Triglycerides 68 Cholesterol 94 L LDL Cholesterol, Calc 45 HDL Cholesterol 35 L Procalcitonin TSH Urine RBC Urine WBC Urine Bacteria Ur Culture Indicated? Assessment & Plan Assessment and plan (1) NSTEMI (non-ST elevated myocardial infarction): Problem details: Abnormal troponins. Mild CAD noted on CT. Continue guideline-directed therapy with ASA, heparin infusion, statin and beta emerald. Discussed with Dr. Key, nursing supervisor payroll at [facility], Dr. Stone and Dr. Del Rio. Patient will transfer to [facility] for left heart catheterization. Status: Acute (2) Chest pain: Problem details: r/o endocarditits in patient with elevated WBC, fever, poor dentition, chronic aortic regurgitation murmur and growing gram-negative rods. Continue broad-spectrum antibiotics. Will obtain ESR and CRP. Patient will have KARINA at [facility] as well as infectious disease consult. Qualifiers: Chest pain type: unspecified Qualified Code(s): R07.9 - Chest pain, unspecified Status: Acute (3) Warfarin anticoagulation: Problem details: Supratherapeutic on admission. continue to monitor for sings of bleeding. Status: Acute (4) Essential hypertension: Problem details: Elevated during inpatient stay likely due to volume overload. Will add fursoemide as below. Continue current management with coreg and losartan Status: Chronic (5) Dilated cardiomyopathy: Problem details: Furosemide 40 mg IV daily in addition to guideline-directed medical therapy. Echocardiogram shows EF of 45-50%, unchanged from previous. This was a limited echo that did not assess diastolic dysfunction. Will obtain BNP. Patient will have KARINA and [facility] for further evaluation. Status: Chronic Assessment & Plan narrative: This patient was seen in collaboration with Dr. Del Rio including history taking, physical examination and decision making. The case was discussed with Dr. Key, Dr. Stone and the nursing supervisor payroll at [facility]. A significant amount of time was spent coordinating care. Time Spent With Patient Time with patient: Greater than 35 minutes
--- NOTE | 2020-12-19 14:06 | P.DS_ITS ---
History of Present Illness History of Present Illness Date Patient Seen: 12/19/20 Chief complaint: everything hurts Narrative: Josh Mcguire Is a 70 year old male with atrial fibrillation, dilated cardiomyopathy, hypertension, probable coronary artery disease, hyperlipidemia presented today with chest pain that started 2 days ago. He stated it cleared up on Thursday and then on Thursday which was the day of admission he had really bad chest pain that was not relieving itself at all. He describes the pain as extending across his upper chest and that his heart is pounding like crazy. It is relieved with 2 doses of nitroglycerin and hydromorphone IV. He states that morphine makes him very sick.He asked for his cousin to bring him in. He stated he had dry heaves worsened when drinking fluids, sweating, nausea but no vomiting, denies dysuria, diarrhea constipation. CT of the chest abdomen and pelvis indicated the following findings: 1. Mild thoracic aortic aneurysm. No aortic dissections. 2. Prominent pulmonary outflow tract measuring 3.8 cm. 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 3. Mild cardiomegaly. 4. Small pericardial effusion. 5. Small pleural effusions bilaterally with bibasilar atelectasis. 6. 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 7. A 2.8 cm soft tissue mass like density in the left posterior bladder base, which is suboptimally visualized. This could be secondary to asymmetric protrusion of enlarged prostate to the bladder base. Ultrasound is recommended for further evaluation. EKG indicated normal sinus rhythm with left ventricular hypertrophy and a prolonged QT that EKG was reported to not be of significant change from prior. Patient is febrile at 100.2 blood pressure 152/65, heart rate 80, respiratory rate 16, oxygen saturation of 97% on 1 L, he weighs 87.5 kg with a BMI of 28.5. Still UC is elevated at 12.3, he does have about mild left shift, patient is anticoagulated with an INR of 8.2, sodium 143, potassium 3.1, chloride 112, CO2 22, BUN 20, creatinine 0.87, with GFR greater than 60, glucose is 111, hemoglobin A1c is 5.3, admission troponin was 0.039 and subsequent troponins were 0.028, UA is pending, and COVID-19 PCR is negative. Patient sees Dr. Del Rio, Phlebotomy Director. He has a history of undergoing KARINA cardioversion in 2018 which found a mildly dilated left ventricle with a LE VF of 30-35%, mild mitral valve prolapse, mild mitral regurgitation, aortic root diameter 5.0 cm with a moderate aortic regurgitation. He also underwent a echocardiogram in 2019 which indicated improve LV function of 40-45%. In December of 2017 he had a pharmacological perfusion study that indicated no reversible ischemia but that there was a predominantly fixed anterior wall and inferior apical defect with no wall motion abnormalities. He undergoes echocardiography annually. Discharge Providers Provider Date of admission: 12/18/20 11:51 Discharge Date: 12/19/20 Primary care physician: Maykel Bullock MD Consults: 12/18/20 15:24 Consult to Pastoral Services Routine Comment: Patient request Discharge provider: Carine Key MD Summary Hospital Course Discharge Diagnosis: 1. Non ST-elevation myocardial infarction 2. Gram-negative bacteremia 3. Thoracic aortic aneurysm, no evidence of dissection 4. Chronic persistent atrial fibrillation 5. Hypertension 6. GERD 7. 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 A 2 point cm soft tissue mass in the posterior bladder base, this is suboptimally visualized, this may be due to asymmetric protrusion of an enlarged prostate however ultrasound is recommended for further evaluation. Hospital Course: Patient is a 70-year-old male with a history of tachycardic induced cardiomyopathy, atrial fibrillation, chronic systolic heart failure with an ejection fraction initially of 25% now EF of 58%, hypertension hyperlipidemia peptic ulcer disease who presented to the hospital with chest pain. The patient had troponins which were elevated at 0.049. The patient had EKG which showed some abnormalities. He was on 3 L of oxygen. Patient underwent the 1st phase of stress testing and the procedure was aborted. The patient will be treated for an NSTEMI started on IV heparin, continued on aspirin, beta-emerald added, and transferred to [facility] for definitive cardiac catheterization. The patient also has been febrile to 100.1. Blood cultures are growing Gram-negative rods. Patient underwent CT of the abdomen and pelvis. The CT of the pelvis showed a 2.8 cm soft tissue mass in the posterior bladder base. It was recommended that ultrasound be obtained to evaluate this further. With left renal cortical atrophy. Given the patient's persistent symptoms he will be transferred to [facility] for transesophageal echocardiogram, cardiac catheterization, infectious disease consultation, and continued antibiotic therapy. Patient is aware and concur with plan as outlined above. I have discussed this with Dr. Schmitz on-call for Cardiology. Recommends transfer to [facility] for definitive treatment. Status at Discharge Cognitive/behavioral status at discharge: oriented Functional status at discharge: independent ambulation Overall status at discharge: patient is not back to baseline Time Spent with Patient Time spent: Less than 30 minutes Time spent discussing smoking cessation with patient: 3 to 10 minutes Exam Vital Signs (past 8 hours): - 12/19/20 07:40 12/19/20 08:34 12/19/20 11:04 Temperature 98.8 F Pulse Rate 105 H 107 H Respiratory Rate 20 Blood Pressure 147/68 H 147/68 H Pulse Oximetry 94 94 12/19/20 11:52 Temperature 98.4 F Pulse Rate 91 H Respiratory Rate 18 Blood Pressure 155/71 H Pulse Oximetry 94 Oxygen Delivery Method Room Air Oxygen Flow Rate 1 Narrative Exam Narrative: Ill-appearing male lying in bed Lungs: Decreased breath sounds bilaterally Cardiac exam: Irregularly irregular, normal S1-S2, 2/6 systolic ejection murmur Abdomen: Soft nontender nondistended Extremities: No edema Objective Labs Result Diagrams: 12/19/20 05:00 12/19/20 05:00 Labs: Laboratory Results - last 24 hr 12/18/20 12/18/20 12/18/20 08:05 08:05 08:05 WBC RBC Hgb Hct MCV MCH MCHC RDW Plt Count Neut % (Auto) Lymph % (Auto) [place] % (Auto) Eos % (Auto) Baso % (Auto) Neut # (Auto) Lymph # (Auto) [place] # (Auto) Eos # (Auto) Baso # (Auto) PT INR Sodium Potassium Chloride Carbon Dioxide BUN Creatinine Estimated GFR BUN/Creatinine Ratio Glucose Hemoglobin A1c 5.3 Lactate Calcium Magnesium 1.8 Total Creatine Kinase CK-MB (CK-2) CK-MB (CK-2) Rel Index Troponin I Triglycerides Cholesterol LDL Cholesterol, Calc HDL Cholesterol Procalcitonin TSH 2.24 Urine RBC Urine WBC Urine Bacteria Ur Culture Indicated? 12/18/20 12/18/20 12/19/20 18:30 23:45 00:30 WBC RBC Hgb Hct MCV MCH MCHC RDW Plt Count Neut % (Auto) Lymph % (Auto) [place] % (Auto) Eos % (Auto) Baso % (Auto) Neut # (Auto) Lymph # (Auto) [place] # (Auto) Eos # (Auto) Baso # (Auto) PT INR Sodium Potassium Chloride Carbon Dioxide BUN Creatinine Estimated GFR BUN/Creatinine Ratio Glucose Hemoglobin A1c Lactate Calcium Magnesium Total Creatine Kinase 21 L CK-MB (CK-2) TNP CK-MB (CK-2) Rel Index TNP Troponin I 0.028 Triglycerides Cholesterol LDL Cholesterol, Calc HDL Cholesterol Procalcitonin 10.3 H TSH Urine RBC 5-10/hpf H Urine WBC 10-30/hpf H Urine Bacteria Many (>30) H Ur Culture Indicated? Specimen cultured 12/19/20 12/19/20 12/19/20 00:30 00:30 05:00 WBC 10.8 RBC 3.80 L Hgb 12.3 L Hct 35.6 L MCV 93.7 MCH 32.3 MCHC 34.4 RDW 14.9 H Plt Count 224 Neut % (Auto) 82.9 H Lymph % (Auto) 5.4 L [place] % (Auto) 10.7 Eos % (Auto) 0.7 L Baso % (Auto) 0.3 Neut # (Auto) 8900 H Lymph # (Auto) 600 L [place] # (Auto) 1100 H Eos # (Auto) 100 Baso # (Auto) 0 PT INR Sodium Potassium Chloride Carbon Dioxide BUN Creatinine Estimated GFR BUN/Creatinine Ratio Glucose Hemoglobin A1c Lactate 0.6 L Calcium Magnesium Total Creatine Kinase CK-MB (CK-2) CK-MB (CK-2) Rel Index Troponin I 0.035 H Triglycerides Cholesterol LDL Cholesterol, Calc HDL Cholesterol Procalcitonin TSH Urine RBC Urine WBC Urine Bacteria Ur Culture Indicated? 12/19/20 12/19/20 12/19/20 05:00 05:00 05:00 WBC RBC Hgb Hct MCV MCH MCHC RDW Plt Count Neut % (Auto) Lymph % (Auto) [place] % (Auto) Eos % (Auto) Baso % (Auto) Neut # (Auto) Lymph # (Auto) [place] # (Auto) Eos # (Auto) Baso # (Auto) PT 14.7 H D INR 1.3 Sodium 138 Potassium 3.6 Chloride 109 H Carbon Dioxide 24 BUN 16 Creatinine 0.83 Estimated GFR > 60.0 BUN/Creatinine Ratio 19.3 Glucose 117 H Hemoglobin A1c Lactate Calcium 8.5 Magnesium 1.8 Total Creatine Kinase CK-MB (CK-2) CK-MB (CK-2) Rel Index Troponin I 0.043 H Triglycerides 68 Cholesterol 94 L LDL Cholesterol, Calc 45 HDL Cholesterol 35 L Procalcitonin TSH Urine RBC Urine WBC Urine Bacteria Ur Culture Indicated? [facility] Medical History Anemia (Unknown) Atrial fibrillation (06/2017) Atrial fibrillation with RVR Cardiomyopathy (06/2017) CHF (congestive heart failure) (~06/2017) Duodenal ulcer (Unknown) Elevated PSA Encephalopathy (Unknown) Foreign body in urethra Gastric ulcer (Unknown) Gastritis (Unknown) History of recurrent UTI (urinary tract infection) Hyperlipemia (Unknown) Hypertension (Unknown) Neurogenic bladder (Unknown) Neurogenic bladder Neuropathy (Unknown) Osteoarthritis (Unknown) Osteopenia (03/2016) Peptic ulcer (Unknown) Pyelonephritis (~2011) Sepsis Surgical History History of bilateral knee replacement (Unknown) History of colon resection History of left hip replacement (Unknown) Hx of shoulder surgery (Unknown) Family History (Updated 12/19/20 @ 00:15 by MARIZOL Prasad) Mother Cancer Medical history unknown Father Medical history unknown Social History marital status: unknown household members: none occupational status: previously employed Smoking Status: Never smoker second hand exposure: No alcohol intake: never substance use type: does not use Discharge Assessment & Plan Assessment and Plan Assessment: 1. ST-elevation myocardial infarction 2. Thoracic aortic aneurysm, non dissecting 3. Gram-negative bacteremia, suspect urinary tract source 4. Chronic UPJ obstruction on the left 5. Chronic persistent atrial fibrillation 6. Tachy cardiac cardiomyopathy Plan of Treatment: 1. Start IV heparin, aspirin, beta-emerald 2. Start IV Zosyn for Gram-negative bacteremia 3. Transfer to [facility] for transesophageal echo, possible cardiac catheterization, infectious disease consultation, and further therapy Discharge Plan Discharge Plan Disposition: [facility] Discharge orders & Medications Medication counseling provided by Pharmacist: No Follow up/Referrals: Maykel Bullock MD [Primary Care Provider] - Discharge Health Status Multidrug resistant organism: No MDRO Diet/Activity/Treatments Diet: Low-fat and Low-sodium Liquid consistency: Normal/Thin Food texture: Regular Activity: bed rest Oxygen: 2-3 liters Discharge Data Primary Care Provider: Maykel Bullock Attending Provider: Carine Key VTE Deep Vein Thrombosis/Pulmonary Embolism Present on Admission: No
[2020-12-19 14:56] LABS: Acinetobacter baumannii Not Detected (Not Detect); Candida albicans Not Detected (Not Detect); Candida glabrata Not Detected (Not Detect); Candida krusei Not Detected (Not Detect); Candida parapsilosis Not Detected (Not Detect); Candida tropicalis Not Detected (Not Detect); E. coli Detected (Not Detect); Enterobacter cloacae complex Not Detected (Not Detect); Enterobacteriaceae species Detected (Not Detect); Enterococcus species Not Detected (Not Detect); Haemophilus influenzae Not Detected (Not Detect); KPC (carbapenem-resist gene) Not Detected (Not Detect); Listeria monocytogenes Not Detected (Not Detect); Neisseria meningitidis Not Detected (Not Detect); Proteus species Not Detected (Not Detect); Pseudomonas aeruginosa Not Detected (Not Detect); Serratia marcescens Not Detected (Not Detect); Staphylococcus species Not Detected (Not Detect); Streptococcus agalactiae (Gr B Not Detected (Not Detect); Streptococcus pneumonia Not Detected (Not Detect); Streptococcus pyogenes (Gr A) Not Detected (Not Detect); Streptococcus species Not Detected (Not Detect)
[2020-12-19 15:08] LABS: Platelet Count 232 X10^3/uL (150-400)
[2020-12-19 15:13] LABS: INR 1.2 (0.9-1.3)
[2020-12-19 15:16] LABS: PTT Partial Thromboplastin Tim 30 SECONDS (26.4-36.2)
[2020-12-19] MEDS: carvediloL 12.5 MG TABLET 18.75 MG PO ×2 (15:17→20:30)
[2020-12-19] MEDS: METOPROLOL ER 50 MG TABLET PO (15:19)
--- NOTE | 2020-12-19 15:26 | CM.DANOTE ---
DCP/Assessment: Reviewed chart. [facility] admitted [facility] with [facility] pain. PCP is Dr. Bullock. Primary payor is 1)[facility]. 2)Medicaid. Met with patient this AM explained CM/SW role. Patient reports that he resides alone in [place]. Patient uses crutches at baseline. Patient scheduled for stress test today, if negative anticipate patient will d/c home if not may need to transfer for further cardiac w/u. P: Home vs. transfer to higher level of care. CARMINE Vidal Discharge Planning/Care Management CM Discharge Assessment Start: 12/19/20 15:15 Freq: Status: Active Protocol: Document 12/19/20 15:15 KJS (Rec: 12/19/20 15:26 KJS [id number]) Discharge Planning Assessment Assigned Fire Extinguisher Charger CARMINE Vidal Contact Information Deyanira Nevarez (sister) ph# [phone] Advance Directives? No History Provided By Patient,Medical Record Prior Living Arrangements Apartment/Condo Household Members none Independent with ADL's Yes Is patient alert and oriented? Yes Caregiver for Another No DME Already Rented / Owned Crutches Comment Patient reports that he uses crutches at [facility]. Discharge Plan Home Whiteboard Updated in Patient Room with Yes name and ext. # of Fire Extinguisher Charger Review Status In Process Next Review Type Continued Stay Review
[2020-12-19] MEDS: HEPARIN DRIP 25,000 UNIT/500 ML IV.SOLN 21 UNIT IV (15:32)
[2020-12-19] MEDS: HEPARIN 5,000 UNIT/ML VIAL 5000 UNIT (15:32)
--- NOTE | 2020-12-19 16:09 | P.CONS_ITS ---
History of Present Illness Consult details Chief complaint: everything hurts Meds Home Medications and Allergies Home Medications Medication Instructions Recorded Confirmed Type cholecalciferol (vitamin D3) 50 4,000 unit PO DAILY #0 cap 10/12/18 12/18/20 History mcg (2,000 unit) capsule ferrous sulfate 325 mg (65 mg 325 mg PO MOTUWETHFR tab 12/21/18 12/18/20 History iron) tablet furosemide 20 mg tablet 20 mg PO DAILY #90 tab 02/02/19 12/18/20 Rx acetaminophen 1,000 mg PO Q6H PRN 02/23/19 12/18/20 History amiodarone 200 mg PO DAILY #30 tab 02/25/19 12/18/20 Rx tamsulosin 0.4 mg capsule 0.4 mg PO DAILY #90 cap 12/27/19 12/18/20 Rx methenamine hippurate 1 gram tablet 1 g PO BID #90 tab 11/06/20 12/18/20 Rx atorvastatin 20 mg tablet 20 mg PO BEDTIME #90 tab 11/19/20 12/18/20 Rx losartan 50 mg tablet 100 mg PO BID 12/13/20 12/18/20 History ascorbate calcium (vitamin C) 1,000 mg PO DAILY 12/18/20 12/18/20 History carvedilol 18.75 mg PO BID 12/18/20 12/18/20 History omeprazole 20 mg PO BEDTIME 12/18/20 12/18/20 History spironolactone 50 mg PO DAILY 12/18/20 12/18/20 History warfarin 3 mg PO BEDTIME 12/18/20 12/18/20 History Allergies Allergy/AdvReac Type Severity Reaction Status Date / Time ciprofloxacin Allergy Severe BREATHING Verified 12/18/20 08:12 PROBLEMS, CHILLS, SHAKES alendronate sodium AdvReac Severe GI bleed Verified 12/18/20 08:12 [ALENDRONATE SODIUM] cephalexin AdvReac Mild Headache Verified 12/18/20 08:12 morphine AdvReac Mild ABD PAIN Verified 12/18/20 08:12 Exam Vital Signs (past 8 hours): - 12/19/20 08:34 12/19/20 11:04 12/19/20 11:52 Temperature 98.4 F Pulse Rate 107 H 91 H Respiratory Rate 18 Blood Pressure 147/68 H 155/71 H Pulse Oximetry 94 94 12/19/20 15:17 12/19/20 15:18 12/19/20 15:19 Temperature 98.0 F Pulse Rate 85 84 85 Respiratory Rate 18 Blood Pressure 167/69 H 167/69 H 167/69 H Pulse Oximetry 97 Oxygen Delivery Method Room Air Oxygen Flow Rate 1 Objective Labs Result Diagrams: 12/19/20 14:51 12/19/20 05:00 Labs: Laboratory Results - last 24 hr 12/18/20 12/18/20 12/18/20 08:05 08:05 08:05 WBC RBC Hgb Hct MCV MCH MCHC RDW Plt Count Neut % (Auto) Lymph % (Auto) Donley % (Auto) Eos % (Auto) Baso % (Auto) Neut # (Auto) Lymph # (Auto) Donley # (Auto) Eos # (Auto) Baso # (Auto) PT INR APTT Sodium Potassium Chloride Carbon Dioxide BUN Creatinine Estimated GFR BUN/Creatinine Ratio Glucose Hemoglobin A1c 5.3 Lactate Calcium Magnesium 1.8 Total Creatine Kinase CK-MB (CK-2) CK-MB (CK-2) Rel Index Troponin I Triglycerides Cholesterol LDL Cholesterol, Calc HDL Cholesterol Procalcitonin TSH 2.24 Urine RBC Urine WBC Urine Bacteria Ur Culture Indicated? A. baumannii (PCR) Janae albicans (PCR) C. glabrata (PCR) C. krusei (PCR) C. parapsilosis (PCR) C. tropicalis (PCR) Enterobacteriac sp PCR E. cloacae complex PCR Enterococcus sp PCR E. coli (PCR) H. influenzae (PCR) Klebsiella oxytoca PCR Klebsiella pneumoniae List. monocytogenes PCR N. meningitidis (PCR) Proteus species (PCR) Serratia marcescens PCR Staphylococcus sp PCR Staph aureus (PCR) mecA-Methicil Res Gene Streptococcus sp PCR Group A Strep (PCR) Strep agalactiae (PCR) Strep pneumoniae (PCR) P. aeruginosa (PCR) Domenico/B-Vanco Res Genes KPC-Carbap Res Gene PCR 12/18/20 12/18/20 12/19/20 18:30 23:45 00:30 WBC RBC Hgb Hct MCV MCH MCHC RDW Plt Count Neut % (Auto) Lymph % (Auto) Donley % (Auto) Eos % (Auto) Baso % (Auto) Neut # (Auto) Lymph # (Auto) Donley # (Auto) Eos # (Auto) Baso # (Auto) PT INR APTT Sodium Potassium Chloride Carbon Dioxide BUN Creatinine Estimated GFR BUN/Creatinine Ratio Glucose Hemoglobin A1c Lactate Calcium Magnesium Total Creatine Kinase 21 L CK-MB (CK-2) TNP CK-MB (CK-2) Rel Index TNP Troponin I 0.028 Triglycerides Cholesterol LDL Cholesterol, Calc HDL Cholesterol Procalcitonin 10.3 H TSH Urine RBC 5-10/hpf H Urine WBC 10-30/hpf H Urine Bacteria Many (>30) H Ur Culture Indicated? Specimen cultured A. baumannii (PCR) Janae albicans (PCR) C. glabrata (PCR) C. krusei (PCR) C. parapsilosis (PCR) C. tropicalis (PCR) Enterobacteriac sp PCR E. cloacae complex PCR Enterococcus sp PCR E. coli (PCR) H. influenzae (PCR) Klebsiella oxytoca PCR Klebsiella pneumoniae List. monocytogenes PCR N. meningitidis (PCR) Proteus species (PCR) Serratia marcescens PCR Staphylococcus sp PCR Staph aureus (PCR) mecA-Methicil Res Gene Streptococcus sp PCR Group A Strep (PCR) Strep agalactiae (PCR) Strep pneumoniae (PCR) P. aeruginosa (PCR) Domenico/B-Vanco Res Genes KPC-Carbap Res Gene PCR 12/19/20 12/19/20 12/19/20 00:30 00:30 00:30 WBC RBC Hgb Hct MCV MCH MCHC RDW Plt Count Neut % (Auto) Lymph % (Auto) Donley % (Auto) Eos % (Auto) Baso % (Auto) Neut # (Auto) Lymph # (Auto) Donley # (Auto) Eos # (Auto) Baso # (Auto) PT INR APTT Sodium Potassium Chloride Carbon Dioxide BUN Creatinine Estimated GFR BUN/Creatinine Ratio Glucose Hemoglobin A1c Lactate 0.6 L Calcium Magnesium Total Creatine Kinase CK-MB (CK-2) CK-MB (CK-2) Rel Index Troponin I 0.035 H Triglycerides Cholesterol LDL Cholesterol, Calc HDL Cholesterol Procalcitonin TSH Urine RBC Urine WBC Urine Bacteria Ur Culture Indicated? A. baumannii (PCR) Not detected Janae albicans (PCR) Not detected C. glabrata (PCR) Not detected C. krusei (PCR) Not detected C. parapsilosis (PCR) Not detected C. tropicalis (PCR) Not detected Enterobacteriac sp PCR Detected H E. cloacae complex PCR Not detected Enterococcus sp PCR Not detected E. coli (PCR) Detected H H. influenzae (PCR) Not detected Klebsiella oxytoca PCR Not detected Klebsiella pneumoniae Not detected List. monocytogenes PCR Not detected N. meningitidis (PCR) Not detected Proteus species (PCR) Not detected Serratia marcescens PCR Not detected Staphylococcus sp PCR Not detected Staph aureus (PCR) Not detected mecA-Methicil Res Gene Not Reportable Streptococcus sp PCR Not detected Group A Strep (PCR) Not detected Strep agalactiae (PCR) Not detected Strep pneumoniae (PCR) Not detected P. aeruginosa (PCR) Not detected Domenico/B-Vanco Res Genes Not Reportable KPC-Carbap Res Gene PCR Not detected 12/19/20 12/19/20 12/19/20 05:00 05:00 05:00 WBC 10.8 RBC 3.80 L Hgb 12.3 L Hct 35.6 L MCV 93.7 MCH 32.3 MCHC 34.4 RDW 14.9 H Plt Count 224 Neut % (Auto) 82.9 H Lymph % (Auto) 5.4 L Donley % (Auto) 10.7 Eos % (Auto) 0.7 L Baso % (Auto) 0.3 Neut # (Auto) 8900 H Lymph # (Auto) 600 L Donley # (Auto) 1100 H Eos # (Auto) 100 Baso # (Auto) 0 PT 14.7 H D INR 1.3 APTT Sodium 138 Potassium 3.6 Chloride 109 H Carbon Dioxide 24 BUN 16 Creatinine 0.83 Estimated GFR > 60.0 BUN/Creatinine Ratio 19.3 Glucose 117 H Hemoglobin A1c Lactate Calcium 8.5 Magnesium 1.8 Total Creatine Kinase CK-MB (CK-2) CK-MB (CK-2) Rel Index Troponin I Triglycerides 68 Cholesterol 94 L LDL Cholesterol, Calc 45 HDL Cholesterol 35 L Procalcitonin TSH Urine RBC Urine WBC Urine Bacteria Ur Culture Indicated? A. baumannii (PCR) Janae albicans (PCR) C. glabrata (PCR) C. krusei (PCR) C. parapsilosis (PCR) C. tropicalis (PCR) Enterobacteriac sp PCR E. cloacae complex PCR Enterococcus sp PCR E. coli (PCR) H. influenzae (PCR) Klebsiella oxytoca PCR Klebsiella pneumoniae List. monocytogenes PCR N. meningitidis (PCR) Proteus species (PCR) Serratia marcescens PCR Staphylococcus sp PCR Staph aureus (PCR) mecA-Methicil Res Gene Streptococcus sp PCR Group A Strep (PCR) Strep agalactiae (PCR) Strep pneumoniae (PCR) P. aeruginosa (PCR) Domenico/B-Vanco Res Genes KPC-Carbap Res Gene PCR 12/19/20 12/19/20 12/19/20 05:00 14:51 14:51 WBC RBC Hgb Hct 37.0 L MCV MCH MCHC RDW Plt Count Neut % (Auto) Lymph % (Auto) Donley % (Auto) Eos % (Auto) Baso % (Auto) Neut # (Auto) Lymph # (Auto) Donley # (Auto) Eos # (Auto) Baso # (Auto) PT 13.0 H INR 1.2 APTT 30 D Sodium Potassium Chloride Carbon Dioxide BUN Creatinine Estimated GFR BUN/Creatinine Ratio Glucose Hemoglobin A1c Lactate Calcium Magnesium Total Creatine Kinase CK-MB (CK-2) CK-MB (CK-2) Rel Index Troponin I 0.043 H Triglycerides Cholesterol LDL Cholesterol, Calc HDL Cholesterol Procalcitonin TSH Urine RBC Urine WBC Urine Bacteria Ur Culture Indicated? A. baumannii (PCR) Janae albicans (PCR) C. glabrata (PCR) C. krusei (PCR) C. parapsilosis (PCR) C. tropicalis (PCR) Enterobacteriac sp PCR E. cloacae complex PCR Enterococcus sp PCR E. coli (PCR) H. influenzae (PCR) Klebsiella oxytoca PCR Klebsiella pneumoniae List. monocytogenes PCR N. meningitidis (PCR) Proteus species (PCR) Serratia marcescens PCR Staphylococcus sp PCR Staph aureus (PCR) mecA-Methicil Res Gene Streptococcus sp PCR Group A Strep (PCR) Strep agalactiae (PCR) Strep pneumoniae (PCR) P. aeruginosa (PCR) Domenico/B-Vanco Res Genes KPC-Carbap Res Gene PCR 12/19/20 14:51 WBC RBC Hgb Hct MCV MCH MCHC RDW Plt Count 232 Neut % (Auto) Lymph % (Auto) Donley % (Auto) Eos % (Auto) Baso % (Auto) Neut # (Auto) Lymph # (Auto) Donley # (Auto) Eos # (Auto) Baso # (Auto) PT INR APTT Sodium Potassium Chloride Carbon Dioxide BUN Creatinine Estimated GFR BUN/Creatinine Ratio Glucose Hemoglobin A1c Lactate Calcium Magnesium Total Creatine Kinase CK-MB (CK-2) CK-MB (CK-2) Rel Index Troponin I Triglycerides Cholesterol LDL Cholesterol, Calc HDL Cholesterol Procalcitonin TSH Urine RBC Urine WBC Urine Bacteria Ur Culture Indicated? A. baumannii (PCR) Jnaae albicans (PCR) C. glabrata (PCR) C. krusei (PCR) C. parapsilosis (PCR) C. tropicalis (PCR) Enterobacteriac sp PCR E. cloacae complex PCR Enterococcus sp PCR E. coli (PCR) H. influenzae (PCR) Klebsiella oxytoca PCR Klebsiella pneumoniae List. monocytogenes PCR N. meningitidis (PCR) Proteus species (PCR) Serratia marcescens PCR Staphylococcus sp PCR Staph aureus (PCR) mecA-Methicil Res Gene Streptococcus sp PCR Group A Strep (PCR) Strep agalactiae (PCR) Strep pneumoniae (PCR) P. aeruginosa (PCR) Domenico/B-Vanco Res Genes KPC-Carbap Res Gene PCR Assessment & Plan Assessment & Plan narrative: 1. NSTEMI * Antiplatelet therapy with heparin infusion at 12 units/kg/hr; start at 60 units/kg * Oxygen: SPO2 was 92% in the stress lab. Supplement with 2L nasal cannula to keep SPO2 greather than 92% * Nitroglycerin: 0.4 mg sublingually for acute chest pain repeat every 5 minutes up to three doses * Patient is allergic to morphine. Continue hydromorphone PRN. * Beta emerald: Patient is currently on carvedilol 18.75 mg BID. Switch to metoprolol tartrae 50 mg BID, increase to 100 mg if needed for blood pressure control and for target heart rate less than 80 bpm * Transfer to [facility] for left heart catheterization. Dr. Stone and nursing die engraving supervisor aware. If no bed is available, please transfer to [facility] for LHC. 2. History of aortic root and ascending aortic diltation: CT of the chest abdom en and pelvis showed a mild thoracic aortic aneurysm. No aortic dissections. 3. Pulmonary outflow tract dilatation: Noted on CT. Patient is also growing gram-negative rods. moderate aortic regurgitation. Will need KARINA. This patient was discussed with Dr. Caty Del Rio. Thank you for this int eresting consultation. -MARIZOL Becerra
--- NOTE | 2020-12-19 16:18 | PC.NURSE ---
Pt alert this a.m. VSS, afebrile on RA, receiving IV antibiotics zosyn tolerating well. Slightly confused this a.m. confusing a.m. and p.m events. Pt c/o pain to back 9/10 after repositioning in bed radiating down arms, controlled well with prn IV hydromorphone. Pt with good po intake for breakfast. Pt requesting straight cath about 1130, obtained 500cc arthur urine. Taken for stress test approximately 1230. Upon return informed occasional caregiver and MD of inability to perform stress test. Plan for patient to be transferred to [facility] for stent placement. Pt received stat lab orders and orders for heparin drip. Lab informed RN of critical blood culture results. MD notified. Care coordinators assisted with heparin drip initiation. Kept pt NPO for possible surgery/ procedure at [facility]. Endorsed to oncoming shift.
[2020-12-19 17:09] LABS: Creatine Kinase 32 U/L (55-170)
[2020-12-19 17:21] LABS: Troponin I 0.027 ng/mL (0.01-0.034)
[2020-12-19] MEDS: FUROSEMIDE 40 MG/4 ML VIAL IV (20:28)
[2020-12-19] MEDS: ATORVASTATIN 20 MG TABLET 40 MG PO (20:28)
[2020-12-19 21:10] LABS: Erythrocyte Sedimentation Rate 55 MM/HR (0-15)
[2020-12-19 21:13] LABS: PTT Partial Thromboplastin Tim 38 SECONDS (26.4-36.2)
[2020-12-19 21:15] LABS: NT-proBNP (BNP-Adult 18+) 1840 pg/mL (<125)
[2020-12-19 21:52] LABS: C-Reactive Protein Quant 28.9 mg/dL (<1.0)
[2020-12-19] MEDS: HEPARIN 5,000 UNIT/ML VIAL 3000 UNIT IV (22:36)
[2020-12-20 03:11] LABS: INR 1.2 (0.9-1.3)
[2020-12-20 03:20] LABS: PTT Partial Thromboplastin Tim 38 SECONDS (26.4-36.2)
[2020-12-20 03:22] VITALS: BP 143/59; PULSE 66; RESP 16; TEMP 37.2; O2SAT 93
[2020-12-20] MEDS: HEPARIN 5,000 UNIT/ML VIAL 5000 UNIT (03:31)
[2020-12-20] MEDS: PANTOPRAZOLE DR 20 MG TABLET PO (06:09)
[2020-12-20] MEDS: PIPERACILLIN/TAZO 3.375 GM in SODIUM CHLORIDE 0.9% 100 ML 25 ML IV (06:10)
[2020-12-20] MEDS: SODIUM CHLORIDE 0.9% FLUSH 10 ML IV ×2 (06:12→08:57)
[2020-12-20] MEDS: SODIUM CHLORIDE 0.9% 250 ML 21 ML IV (06:12)
[2020-12-20] MEDS: ACETAMINOPHEN 325 MG TABLET 650 MG PO (06:21)
[2020-12-20 07:32] VITALS: BP 152/59; PULSE 83; RESP 18; TEMP 37.3; O2SAT 95
[2020-12-20] MEDS: ASPIRIN EC 81 MG TABLET PO (08:52)
[2020-12-20] MEDS: TAMSULOSIN 0.4 MG CAPSULE PO (08:53)
[2020-12-20] MEDS: carvediloL 12.5 MG TABLET 18.75 MG PO (08:53)
[2020-12-20] MEDS: ASCORBIC ACID 500 MG TABLET PO (08:53)
[2020-12-20] MEDS: AMIODARONE 200 MG TABLET PO (08:53)
[2020-12-20] MEDS: FUROSEMIDE 40 MG/4 ML VIAL IV (08:53)
[2020-12-20 08:54] VITALS: BP 152/59; PULSE 83
[2020-12-20] MEDS: LOSARTAN 50 MG TABLET 100 MG PO (08:54)
[2020-12-20 09:49] LABS: Hgb Solubility Negative (Negative)
[2020-12-20 09:49] LABS: PTT Partial Thromboplastin Tim 38 SECONDS (26.4-36.2)
--- NOTE | 2020-12-20 11:40 | PC.NURSE ---
Pt A&Ox3 this a.m. VSS, low grade temp of 99.1 Tolerating heparin dripp and antibiotics well. Pt acknolwedged plan of transfer to [facility]. Heparin drip running at 24 ml/hr for PTT at 0300 results of 38. Pt c/o 3-10/06 pain this a.m. subscapular and substernal, he denied needing nitro or stronger pain medication than tylenol. On telemetry NSR with SVB prolonged QT, PAC's. EMS arrived at 0945 to transport patient via gurney. Sina retrieved for patient from safe, and he transported with all of his belongings. Report called to Judy GAGNON at [facility] who informed patient going into room 2022.
== END 2020-12-20 10:00 | disposition short-term general hospital (02) | DRG 280 ==
LOC: ED 08:36 → AC 12:11
PROVIDERS: Nurse Practitioner; Nurse Practitioner Family; Admitting Provider Internal Medicine; Emergency Provider Emergency Medicine; Family Provider Specialist; PCP Student in an Organized Health Care Education/Training Program; Referring Provider Emergency Medicine; Visit Provider Internal Medicine
DX: I21.4 Non-ST elevation (NSTEMI) myocardial infarction (principal); I50.21 Acute systolic (congestive) heart failure; N39.0 Urinary tract infection, site not specified; R78.81 Bacteremia; I42.9 Cardiomyopathy, unspecified; I11.0 Hypertensive heart disease with heart failure; B96.20 Unspecified Escherichia coli [E. coli] as the cause of diseases classified elsewhere; N13.5 Crossing vessel and stricture of ureter without hydronephrosis; E78.5 Hyperlipidemia, unspecified; I48.91 Unspecified atrial fibrillation; Z20.822 Contact with and (suspected) exposure to COVID-19; Z79.01 Long term (current) use of anticoagulants
CPT/HCPCS: 36415; 71045; 71275; 74174; 80048; 80053; 80061; 81015; 82550; 83036; 83605; 83690; 83735; 83880; 84145; 84443; 84484; 85014; 85025; 85049; 85610; 85651; 85660; 85730; 86140; 87040; 87077; 87086; 87150; 87186; 87205; 87635; 93005; 93010; 93307; 94760; 96361; 96374; 96375; 99284; C9803; J1170; J1644; J1940; J2543; J2765; J3430

== ENCOUNTER → 2021-03-25 08:45 | Outpatient (CLI) | payer MEDICARE, MEDICAID, SELFPAY ==
[2020-12-18 15:14] VITALS: BMI 28.5
[2021-03-25 10:24] LABS: Alanine Aminotransferase 16 IU/L (<50); Albumin 3.7 g/dL (3.5-5.0); Albumin Globulin Ratio 1.4 (1.0-2.8); Alkaline Phosphatase 54 U/L (38-126); Aspartate Aminotransferase 19 IU/L (17-59); BUN Creatinine Ratio 22.7 (6-22); Bilirubin Total 0.5 mg/dL (0.2-1.3); Blood Urea Nitrogen 20 mg/dL (9-20); Calcium 9.2 mg/dL (8.4-10.2); Carbon Dioxide 29 mmol/L (22-32); Chloride 110 mmol/L (98-107); Estimated Glomerular Filt Rate > 60.0 mL/min (>60); Globulin 2.6 g/dL (1.7-4.1); Glucose 90 mg/dL (80-110); HEMOLYSIS < 15 (0-50); Potassium 3.7 mmol/L (3.4-5.1); Sodium 142 mmol/L (137-145); Total Protein 6.3 g/dL (6.3-8.2)
[2021-03-25 10:45] LABS: Thyroid Stimulating Hormone 2.91 uIU/mL (0.47-4.68)
== END ==
PROVIDERS: Family Provider Specialist; PCP Student in an Organized Health Care Education/Training Program; Referring Provider Internal Medicine Cardiovascular Disease; Visit Provider Internal Medicine Cardiovascular Disease
DX: Z79.899 Other long term (current) drug therapy (principal)
CPT/HCPCS: 36415; 80053; 84443

== ENCOUNTER → 2021-05-09 13:16 | Outpatient (CLI) | payer MEDICARE, MEDICAID, SELFPAY ==
[2020-12-18 15:14] VITALS: BMI 28.5
[2021-05-09 14:32] LABS: COVID19 -Nasal RAPID Negative (Negative)
== END ==
PROVIDERS: Family Provider Specialist; PCP Student in an Organized Health Care Education/Training Program; Referring Provider Internal Medicine; Visit Provider Internal Medicine
DX: Z20.822 Contact with and (suspected) exposure to COVID-19 (principal)
CPT/HCPCS: 87635; C9803

== ENCOUNTER → 2021-10-15 12:08 | Outpatient (CLI) | payer MEDICARE, MEDICAID, SELFPAY ==
[2020-12-18 15:14] VITALS: BMI 28.5
== END ==
PROVIDERS: Family Provider Specialist; PCP Student in an Organized Health Care Education/Training Program; Visit Provider Specialist
DX: R30.0 Dysuria (principal); N13.30 Unspecified hydronephrosis; D41.4 Neoplasm of uncertain behavior of bladder; R31.9 Hematuria, unspecified
CPT/HCPCS: 51798; 81002; 87077; 87086; 87186; 99215

== ENCOUNTER → 2021-10-25 09:15 | Outpatient (CLI) | payer MEDICARE, MEDICAID, SELFPAY ==
[2021-10-15 12:12] VITALS: BMI 28.5
[2021-10-25 10:15] LABS: BUN Creatinine Ratio 27.2 (6-22); Blood Urea Nitrogen 40 mg/dL (9-20); Calcium 9.6 mg/dL (8.4-10.2); Carbon Dioxide 26 mmol/L (22-32); Chloride 110 mmol/L (98-107); Estimated Glomerular Filt Rate 51 mL/min (>60); Glucose 99 mg/dL (80-110); HEMOLYSIS < 15 (0-50); Potassium 4.8 mmol/L (3.4-5.1); Sodium 141 mmol/L (137-145)
== END ==
PROVIDERS: Family Provider Specialist; PCP Student in an Organized Health Care Education/Training Program; Referring Provider Specialist; Visit Provider Specialist
DX: N13.30 Unspecified hydronephrosis (principal)
CPT/HCPCS: 36415; 80048

== ENCOUNTER → 2021-11-01 12:45 | Outpatient (CLI) | payer MEDICARE, MEDICAID, SELFPAY ==
[2021-10-15 12:12] VITALS: BMI 28.5
--- NOTE | 2021-11-01 13:47 | DI.CT.S_ITS ---
PROCEDURE: CT ABDOMEN PELVIS W CON INDICATIONS: hydronephrosis TECHNIQUE: After the administration of oral and intravenous contrast, axial sections were acquired from the lung bases to the pubic symphysis. Coronal and sagittal reformats were performed. For radiation dose reduction, the following was used: automated exposure control, adjustment of mA and/or kV according to patient size. COMPARISON:[facility], CT, CT ANGIO CHEST ABDOMEN PELVIS, 12/24/2020, 20:43. [facility], CT, CT ABDOMEN PELVIS W CON, 10/20/2019, 23:55. FINDINGS: Image quality: Excellent. Lung bases: Lung bases are clear. Heart size is normal. Solid organs: Liver: The liver has no mass or intrahepatic biliary ductal dilatation. Biliary: The gallbladder has no gallstones, pericholecystic fluid, gallbladder wall thickening, or surrounding inflammatory change. Pancreas: The pancreas has no mass or ductal dilatation. There is no surrounding inflammation. Spleen: Normal size. There are no masses. Adrenals: No hypertrophy or nodules. Kidneys: No obstructive calculus or hydronephrosis. No solid mass. The left kidney has multiple peripelvic cysts however no hydronephrosis. Peritoneum and bowel: The distal esophagus and stomach are normal. The small bowel has a normal caliber and appearance. The terminal ileum is normal. The large bowel has increased stool consistent with constipation, but otherwise normal appearance.. No free fluid or air. Nodes and vessels: No retroperitoneal or mesenteric adenopathy by size criteria. The aorta has atherosclerosis with no aneurysmal dilatation. Miscellaneous: No abdominal wall mass or hernia. PELVIS: Genitourinary: The bladder has no wall thickening or mass. No bladder calcifications. Bones: Degenerative changes with no focal abnormality. No vertebral body compression fractures. IMPRESSION: 1. No acute abnormality of the abdomen or pelvis. 2. No evidence of aortic dissection or aneurysm. 3. The left kidney has multiple large peripelvic cysts measuring up to 6 cm, however no hydronephrosis. Dictated by: Carson Patel M.D. on 11/01/2021 at 16:26 Approved by: Carson Patel M.D. on 11/01/2021 at 16:33
== END ==
PROVIDERS: Family Provider Specialist; PCP Student in an Organized Health Care Education/Training Program; Referring Provider Specialist; Visit Provider Specialist
DX: N28.1 Cyst of kidney, acquired (principal)
CPT/HCPCS: 74177

== ENCOUNTER → 2021-11-14 09:43 | Outpatient (CLI) | payer MEDICARE, MEDICAID, SELFPAY ==
[2021-10-15 12:12] VITALS: BMI 28.5
== END ==
PROVIDERS: Family Provider Specialist; PCP Student in an Organized Health Care Education/Training Program; Visit Provider Internal Medicine
DX: R30.0 Dysuria (principal); N28.1 Cyst of kidney, acquired; Z87.440 Personal history of urinary (tract) infections
CPT/HCPCS: 51798; 81002; 87077; 87086; 87186; 99215

== ENCOUNTER → 2021-11-19 15:05 | Outpatient (CLI) | payer MEDICARE, MEDICAID, SELFPAY ==
[2021-10-15 12:12] VITALS: BMI 28.5
== END ==
PROVIDERS: Family Provider Specialist; PCP Student in an Organized Health Care Education/Training Program; Visit Provider Specialist
DX: N40.0 Benign prostatic hyperplasia without lower urinary tract symptoms (principal); N28.1 Cyst of kidney, acquired; R30.0 Dysuria; Z87.440 Personal history of urinary (tract) infections
CPT/HCPCS: 52000; 81002; 87086; 99214

== ENCOUNTER → 2021-12-09 14:39 | Outpatient (CLI) | payer MEDICARE, MEDICAID, SELFPAY ==
[2021-10-15 12:12] VITALS: BMI 28.5
--- NOTE | 2021-12-09 14:40 | DI.ECHO.S_ITS ---
[facility] +---------+ : : [address] [place] : : : : [id number] : : : : Phone: [phone]+ Echocardiogram Report + + :Name: EULOGIO BENAVIDEZ Study Date: 12/09/2021 Height: 69 in : :[facility] ReadingLocation: Weight: 185 lb : : Gender: Male BSA: 2.0 m2 : :: 1950 Age: 71 yrs BP: 163/69 mmHg: :Reason For Study: AORTIC INSUFFICIENCY : :Ordering Physician: ELIU, : :JAIRO Performed By: Ni Zuluaga : :Referring: JAIRO NOWAK : + + Interpretation Summary The left ventricle is moderately dilated based on end-diastolic dimension. The estimated left ventricular end diastolic volume is 235 ml. December 19, 2020 end-diastolic volume 243 mL. Prior to that 343 mL. The ejection fraction is estimated to be 55-60%. Previously 45 to 50%. Left ventricular systolic function has mildly improved compared to the previous exam. The right ventricle is normal in size and function. There is mild mitral annular calcification. There is systolic anterior motion of the chordal apparatus. There is fine diastolic fluttering of the mitral valve consistent with aortic regurgitation. There is a flat closure plane of the the mitral valve leaflets. No significant mitral valve stenosis. There is eccentric mild to moderate MR. Mild worsening from the previous study. The aortic valve is trileaflet. The aortic valve is mildly calcified. There is no aortic valve stenosis. There is moderate to severe aortic regurgitation. Compared to the prior echo study, there has been no change in the severity of aortic regurgitation. There is mild to moderate tricuspid regurgitation. Compared to the prior echo exam, there has been an increase in TR severity. Right ventricular systolic pressure is estimated to be 17 mmHg plus the clinically estimated CVP which cannot be estimated on this exam. Ao root diam: 5.0 cm. December 19, 2020, aortic root 4.7 cm in diameter. asc Aorta Diam: 4.1 cm. December 19, 2020, ascending aorta 4.5 cm in diameter. Ao Arch Diam (Prox Trans): 3.0 cm In February 24, 2019: Ao root diam: 4.8 cm asc Aorta Diam: 4.2 cm Ao Arch Diam (Prox Trans): 3.3 cm In : Ao root diam: 4.8 cm asc Aorta Diam: 4.3 cm Ao Arch Diam (Prox Trans): 3.7 cm Procedure: A two-dimensional transthoracic echocardiogram with color flow and Doppler was performed. The study quality was technically adequate. Comparison is made with the echocardiogram of 12/19/2020. The patient was in sinus bradycardia with heart rates between 55-60 bpm during the exam. Left Ventricle: The left ventricle is moderately dilated. The estimated left ventricular end diastolic volume is 235 ml. There is mild concentric left ventricular hypertrophy. There is moderate proximal septal thickening noted. There is no thrombus. The ejection fraction is estimated to be 55-60%. Left ventricular systolic function has mildly improved compared to the previous exam. There is a significant dyssynchronous contraction pattern, consistent with a conduction abnormality. Mid lateral wall hypokinesis. Proximal inferior hypokinesis. Diastolic function could not be accurately assessed due to confounding valvular disease. Right Ventricle: The right ventricle is normal in size and function. Atria: The left atrium is moderately dilated. There has been no significant change since the previous study. Right atrial size is normal. There is no Doppler evidence for an interatrial shunt. Mitral Valve: There is mild mitral annular calcification. There is systolic anterior motion of the chordal apparatus. There is fine diastolic fluttering of the mitral valve consistent with aortic regurgitation. There is a flat closure plane of the the mitral valve leaflets. No significant mitral valve stenosis. There is eccentric mild to moderate MR. Mild worsening from the previous study. There is no mitral valve stenosis. There is mild to moderate mitral regurgitation. Aortic Valve: The aortic valve is trileaflet. The aortic valve opens well. The aortic valve is mildly calcified. There is no aortic valve stenosis. There is moderate to severe aortic regurgitation. There is an eccentric jet of aortic insufficiency directed against the anterior mitral leaflet. Compared to the prior echo study, there has been no change in the severity of aortic regurgitation. Tricuspid Valve: The tricuspid valve is normal. There is mild to moderate tricuspid regurgitation. Right ventricular systolic pressure is estimated to be 17 mmHg plus the clinically estimated CVP which cannot be estimated on this exam. Compared to the prior echo exam, there has been an increase in TR severity. Pulmonic Valve: The pulmonic valve is not well seen, but is grossly normal. There is no pulmonic valvular regurgitation. Great Vessels: The aortic root is moderately dilated. The ascending aorta is moderately enlarged. The inferior vena cava was not well visualized. Pericardium/ Pleura There is no pericardial effusion. There is no pleural effusion. MMode/2D Measurements & Calculations LVIDd: 6.3 cm LVOT diam: 3.0 cm LVIDs: 4.3 cm Ao root diam: 5.0 cm FS: 32.2 % asc Aorta Diam: 4.1 cm IVSd: 1.3 cm Ao Arch Diam (Prox Trans): 3.0 cm LVPWd: 1.1 cm LV fulton. diameter/BSA (cm/m^2): 3.2 LV sys. diameter/BSA (cm/m^2): 2.1 LA A2 area: 23.8 cm2 RA long axis: 5.4 cm LA A4 area: 23.3 cm2 RA area: 18.0 cm2 LA length (vol): 5.7 cm RA vol: 50.9 ml LA vol: 82.5 ml RA : 25.5 ml/m2 LA vol index: 41.3 ml/m2 RVD1 (basal): 3.9 cm RVD2 (mid): 3.7 cm TAPSE: 3.1 cm Doppler Measurements & Calculations Ao V2 max: 195.1 cm/sec LVOT Max Anthony: 176.2 cm/sec Ao V2 mean: 129.5 cm/sec LV V1 max P.4 mmHg Ao max P.2 mmHg LV V1 VTI: 34.0 cm Ao mean P.5 mmHg CATERINA(I,D): 5.9 cm2 Ao V2 VTI: 40.9 cm CATERINA(V,D): 6.4 cm2 sev ratio: 0.83 CATERINA indexed to BSA (cm^2/m^2): 3.0 AI P1/2t: 406.2 msec AI dec slope: 303.6 cm/sec2 MV E max anthony: 73.1 cm/sec TR max anthony: 206.1 cm/sec MV A max anthony: 60.0 cm/sec TR max P.0 mmHg MV E/A: 1.2 PA V2 max: 80.9 cm/sec Lat Peak E' Anthony: 5.2 cm/sec PA V2 mean: 61.3 cm/sec E/E' lat: 14.0 PA mean P.6 mmHg MV dec time: 0.48 sec PA pr(Accel): 7.1 mmHg SV(LVOT): 242.2 ml Reading Physician:06:09 PM
== END ==
PROVIDERS: Family Provider Specialist; PCP Student in an Organized Health Care Education/Training Program; Referring Provider Internal Medicine Cardiovascular Disease; Visit Provider Internal Medicine Cardiovascular Disease
DX: I08.3 Combined rheumatic disorders of mitral, aortic and tricuspid valves (principal); I77.810 Thoracic aortic ectasia; I50.22 Chronic systolic (congestive) heart failure; I42.0 Dilated cardiomyopathy
CPT/HCPCS: 93306

== ENCOUNTER 2021-12-25 08:23 | Emergency (ER) | payer MEDICARE, MEDICAID, SELFPAY ==
[2021-10-15 12:12] VITALS: BMI 28.5
[2021-12-25] VITALS (26 sets, daily range): BP systolic 107–149; BP diastolic 52–78; PULSE 56–110; RESP 12–20; TEMP 36.9; O2SAT 94–100; BMI 26.5
--- NOTE | 2021-12-25 08:46 | ED_ITS ---
HPI - Chest Pain General Chief Complaint: Arrhythmia/Palpitations Stated Complaint: Needs heart evaluated- ref by Quang Time Seen by Provider: 12/25/21 08:34 History of Present Illness HPI narrative: Patient is a 71-year-old male with history of paroxysmal atrial fibrillation on warfarin presenting today heart racing. He actually was seen by his primary care provider 2 days ago for a checkup is and mentioned that his heart was racing. EKG was done at that time sent to cardiology for confirmation of atrial fibrillation. Cardiology call patient last night told him he was in AFib in to go to the ER. He arrives today his heart rate is in the 90s but is in AFib. He states he has not missed any doses of his warfarin. He is short of breath with exertion he denies any orthopnea. He feels some palpitations he is a little dizzy when he stands up. No fever or chills. No cough. Related Data Home Medications Medication Instructions Recorded Confirmed cholecalciferol (vitamin D3) 50 4,000 unit PO DAILY #0 caps 10/12/18 12/23/21 mcg (2,000 unit) capsule (Vitamin D3) ferrous sulfate 325 mg (65 mg 325 mg PO MOTUWETHFR 12/21/18 12/23/21 iron) tablet acetaminophen 500 mg capsule 1,000 mg PO Q6H PRN pain 02/23/19 12/23/21 losartan 50 mg tablet 100 mg PO BID 12/13/20 12/23/21 ascorbate calcium (vitamin C) 500 1,000 mg PO DAILY 12/18/20 12/23/21 mg capsule carvedilol 12.5 mg tablet 18.75 mg PO BID 12/18/20 12/23/21 spironolactone 25 mg tablet 25 mg PO BID 03/14/21 12/23/21 warfarin 3 mg tablet 3 mg PO BEDTIME 12/23/21 12/23/21 Previous Rx's Medication Instructions Recorded furosemide 20 mg tablet 20 mg PO DAILY #90 tabs 02/02/19 amiodarone 200 mg tablet 200 mg PO DAILY #30 tabs 02/25/19 omeprazole 20 mg capsule,delayed 20 mg PO BEDTIME #90 caps 08/08/21 release methenamine hippurate 1 gram 1 g PO BID #90 tabs 09/12/21 tablet (Hiprex) tamsulosin 0.4 mg capsule (Flomax) 0.4 mg PO DAILY #90 caps 12/09/21 atorvastatin 20 mg tablet (Lipitor) 20 mg PO BEDTIME #90 tabs 12/23/21 Allergies Allergy/AdvReac Type Severity Reaction Status Date / Time ciprofloxacin Allergy Severe BREATHING Verified 12/23/21 15:52 PROBLEMS, CHILLS, SHAKES alendronate sodium AdvReac Severe GI bleed Verified 12/23/21 15:52 [ALENDRONATE SODIUM] cephalexin AdvReac Mild Headache Verified 12/23/21 15:52 morphine AdvReac Mild ABD PAIN Verified 12/23/21 15:52 Review of Systems Review of Systems Narrative: GENERAL: Denies chills, fatigue, malaise, fever, sweats, travel HEENT: Denies sinus pain, ear pain, sore throat, difficulty swallowing, neck pain RESPIRATORY: See HPI CARDIOVASCULAR: Denies chest pain, palpitations, orthopnea, edema GASTROINTESTINAL: Denies nausea, vomiting, abdominal pain, diarrhea, constipation, melena. : Denies dysuria, frequency, incontinence, hematuria, urinary retention, flank pain. MUSCULOSKELETAL: Denies weakness, joint pain, or bony pain SKIN: No rash, no erythema, no pruritus NEUROLOGIC: Denies weakness, dizziness, headache, numbness, change in speech, confusion PSYCHIATRIC: No concerning psychosocial issues. 12 point review of systems is negative except for those stated above and HPI Patient History Medical History Anemia (Unknown) Atrial fibrillation (06/2017) Atrial fibrillation with RVR BPH (benign prostatic hyperplasia) Cardiomyopathy (06/2017) CHF (congestive heart failure) (~06/2017) Cyst of left kidney Duodenal ulcer (Unknown) Elevated PSA Encephalopathy (Unknown) Foreign body in urethra Gastric ulcer (Unknown) Gastritis (Unknown) History of recurrent UTI (urinary tract infection) Hydronephrosis, left Hyperlipemia (Unknown) Hypertension (Unknown) Neoplasm of uncertain behavior of bladder Neurogenic bladder (Unknown) Neurogenic bladder Neuropathy (Unknown) Osteoarthritis (Unknown) Osteopenia (03/2016) Peptic ulcer (Unknown) Pyelonephritis (~2011) Sepsis Surgical History History of bilateral knee replacement (Unknown) History of colon resection History of left hip replacement (Unknown) Hx of shoulder surgery (Unknown) Family History Mother Cancer Medical history unknown Father Medical history unknown Social History marital status: unknown household members: none occupational status: previously employed Smoking Status: Never smoker second hand exposure: No alcohol intake: never substance use type: does not use Smoking Status: Never smoker alcohol intake frequency: other Substance Use Type: does not use Exam Initial Vital Signs Initial Vital Signs: Vital Signs Pulse Rate 95 H 12/25/21 08:29 Pulse Oximetry 98 12/25/21 08:29 GENERAL: Alert pleasant 71-year-old male HEENT: Head atraumatic,EOMI, pupils reactive, face symmetric, moist mucous membranes CARDIOVASCULAR: Irregularly irregular RESPIRATORY: Breath sounds equal bilaterally, no wheezes rales or rhonchi. ABDOMEN: Soft, nontender. Normoactive bowel sounds all 4 quadrants. No guarding or rebound. Large multiple scarring noted EXTREMITIES: Normal range of motion, no clubbing or edema. Neurovascularly intact NEUROLOGICAL: Alert and oriented x4. SKIN: Warm, dry, no laceration, no petechiae, no rashes or lesions. Procedures Cardioversion Consent Signed: Yes Indication: a.fib Stability: Stable Number of attempts (shocks): 1 Joules used: 150 Cardiac rhythm post-cardioversion: sinus Procedural Sedation Consent signed: Yes Time out performed: Yes IV Etomidate dose (mg): 8 ED Sedation Level: Moderate (Concious) Patient Tolerated Procedure: Well Complications: hypoventilation Course Orders Ordered: Discontinued Medications Etomidate (Etomidate 2 Mg/Ml 10 Ml Vial) 8 mg IV NOW ONE Stop: 12/25/21 08:57 Last Admin: 12/25/21 09:28 Dose: 8 mg Documented By: YAZAN Sodium Chloride (Normal Saline 0.9%) 1,000 mls @ 150 mls/hr IV CONT RICARDO Last Admin: 12/25/21 09:29 Dose: 150 mls/hr Documented By: YAZAN Vital Signs Vital signs: Vital Signs - 8 hr 12/25/21 18:23 Pulse Rate 110 H Respiratory Rate 16 MDM - Chest Pain Lab Data Result diagrams: 12/25/21 08:39 12/25/21 08:39 Labs: Lab Results 0612/25/21 12/25/21 Range/Units 08:39 08:39 08:39 WBC 8.7 (4.5-11.0) X10^3/uL RBC 3.71 L (4.5-5.9) X10^6/uL Hgb 12.0 L (13.5-17.5) g/dL Hct 34.7 L (41-53) % MCV 93.6 (80-100) fL MCH 32.3 (26-34) PG MCHC 34.5 (30-36) % RDW 14.5 (11.6-14.8) % Plt Count 279 (150-400) X10^3/uL Neut % (Auto) 76.0 H (50-75) % Lymph % (Auto) 10.9 L (25-40) % [place] % (Auto) 8.9 (3-14) % Eos % (Auto) 3.4 (2-4) % Baso % (Auto) 0.8 (0-2) % Neut # (Auto) 6600 (5003-0424) /uL Lymph # (Auto) 900 L (5137-5481) /uL [place] # (Auto) 800 (0-900) /uL Eos # (Auto) 300 (0-450) /uL Baso # (Auto) 100 (0-100) /uL PT 43.4 H (10.1-12.7) SECONDS INR 3.8 H (0.9-1.3) APTT 49 H D (26.4-36.2) SECONDS Sodium 138 (137-145) mmol/L Potassium 4.5 (3.4-5.1) mmol/L Chloride 108 H (98-107) mmol/L Carbon Dioxide 22 (22-32) mmol/L BUN 51 H (9-20) mg/dL Creatinine 1.82 H (0.66-1.25) mg/dL Estimated GFR 39 L (>60) mL/min BUN/Creatinine Ratio 28.0 H (6-22) Glucose 104 (80-110) mg/dL Calcium 9.3 (8.4-10.2) mg/dL Total Bilirubin 0.5 (0.2-1.3) mg/dL AST 22 (17-59) IU/L ALT 17 (<50) IU/L Alkaline Phosphatase 62 (38-126) U/L Total Creatine Kinase 79 (55-170) U/L CK-MB (CK-2) TNP CK-MB (CK-2) Rel Index TNP Troponin I < 0.012 (0.01-0.034) ng/mL NT-Pro-B Natriuret Pep 1020 H (<125) pg/mL Total Protein 7.1 (6.3-8.2) g/dL Albumin 4.0 (3.5-5.0) g/dL Globulin 3.1 (1.7-4.1) g/dL Albumin/Globulin Ratio 1.3 (1.0-2.8) Lipase 127 (23-300) U/L SARS-CoV-2 (PCR) (Negative) 12/25/21 Range/Units 09:05 WBC (4.5-11.0) X10^3/uL RBC (4.5-5.9) X10^6/uL Hgb (13.5-17.5) g/dL Hct (41-53) % MCV (80-100) fL MCH (26-34) PG MCHC (30-36) % RDW (11.6-14.8) % Plt Count (150-400) X10^3/uL Neut % (Auto) (50-75) % Lymph % (Auto) (25-40) % [place] % (Auto) (3-14) % Eos % (Auto) (2-4) % Baso % (Auto) (0-2) % Neut # (Auto) (3682-1539) /uL Lymph # (Auto) (3890-2521) /uL [place] # (Auto) (0-900) /uL Eos # (Auto) (0-450) /uL Baso # (Auto) (0-100) /uL PT (10.1-12.7) SECONDS INR (0.9-1.3) APTT (26.4-36.2) SECONDS Sodium (137-145) mmol/L Potassium (3.4-5.1) mmol/L Chloride (98-107) mmol/L Carbon Dioxide (22-32) mmol/L BUN (9-20) mg/dL Creatinine (0.66-1.25) mg/dL Estimated GFR (>60) mL/min BUN/Creatinine Ratio (6-22) Glucose (80-110) mg/dL Calcium (8.4-10.2) mg/dL Total Bilirubin (0.2-1.3) mg/dL AST (17-59) IU/L ALT (<50) IU/L Alkaline Phosphatase (38-126) U/L Total Creatine Kinase (55-170) U/L CK-MB (CK-2) CK-MB (CK-2) Rel Index Troponin I (0.01-0.034) ng/mL NT-Pro-B Natriuret Pep (<125) pg/mL Total Protein (6.3-8.2) g/dL Albumin (3.5-5.0) g/dL Globulin (1.7-4.1) g/dL Albumin/Globulin Ratio (1.0-2.8) Lipase (23-300) U/L SARS-CoV-2 (PCR) Negative (Negative) Imaging Data Chest x-ray: Radiologist's Impression: Accession Number: [id number] ?? Procedure: XR chest 1V Ordering Provider: Yelitza Nix D.O. PROCEDURE:? XR CHEST 1V ? INDICATIONS:? chest pain ? TECHNIQUE:? One view of the chest was acquired.? ? COMPARISON:? [facility], , XR CHEST 1V, 12/18/2020, 8:23. ? FINDINGS:? ? Surgical changes and devices:? None.? ? Lungs and pleura:? Lungs are clear.? No pleural effusions or pneumothorax.? ? Mediastinum:? Mediastinal and hilar contours appear similar to before.? Heart size is normal.? ? Bones and chest wall:? No suspicious bony lesions.? Overlying soft tissues appear unremarkable.? ? IMPRESSION:? No acute cardiopulmonary abnormality.? ? ? Dictated by: Nikunj Rod M.D. on 12/25/2021 at 9:29 ? ? ECG Data Interpretation: Atrial fibrillation rate [address] changes EKG 2. Sinus rhythm rate 58 IL interval 286 QRS [address] changes no T- wave inversions MDM Narrative Medical decision making narrative: Patient presents in atrial fibrillation his rate is actually controlled today it appears that it was faster on Thursday. He is therapeutic on his Coumadin with an INR of 3.2. No contraindication to cardioversion. Patient easily cardioverted overall feels better. Discharge Plan Departure Patient Disposition: Home Clinical Impression: Atrial fibrillation Instructions: DI for Atrial Fibrillation Activity Restrictions/Additional Instructions: *You have been diagnosed with atrial fibrillation *What to do: Please continue home medication his previously prescribed. Continue to have your INR checked, have it rechecked this week with her PCP or Cardiology INR today is 3.8 *Continue to take medications as directed *Follow up with your primary care provider in 2-3 days or call [phone] *Return to ER if you should have palpitations chest pain shortness of breath or any new, worsening or concerning symptoms Prescriptions: No Action cholecalciferol (vitamin D3) [Vitamin D3] 2,000 unit capsule 4,000 unit PO DAILY Qty: 0 furosemide 20 mg tablet 20 mg PO DAILY Qty: 90 1RF omeprazole 20 mg capsule,delayed release(DR/EC) 20 mg PO BEDTIME Qty: 90 3RF methenamine hippurate [Hiprex] 1 gram tablet 1 g PO BID Qty: 90 0RF Rx Instructions: Take vitamin-C 500 mg with each tablet tamsulosin [Flomax] 0.4 mg capsule 0.4 mg PO DAILY Qty: 90 3RF spironolactone 25 mg tablet 25 mg PO BID Label Comments: Dose change per Dr. Del Rio. ferrous sulfate 325 mg (65 mg iron) tablet 325 mg PO MOTUWETHFR Label Comments: weekdays losartan 50 mg tablet 100 mg PO BID warfarin 3 mg tablet 3 mg PO BEDTIME Rx Instructions: 1.5mg Thursday, and 3mg all other days, or as directed. atorvastatin [Lipitor] 20 mg tablet 20 mg PO BEDTIME Qty: 90 3RF acetaminophen 500 mg capsule 1,000 mg PO Q6H PRN (Reason: pain) amiodarone 200 mg tablet 200 mg PO DAILY Qty: 30 0RF Rx Instructions: Start after 1 week of 400 mg twice daily carvedilol 12.5 mg tablet 18.75 mg PO BID Rx Instructions: 1 and 1/2 tabs BID ascorbate calcium (vitamin C) 500 mg Capsule 1,000 mg PO DAILY Referrals: Maykel Bullock MD [Primary Care Provider] - Caty Del Rio MD [Physician] - Visit Report Forms: Patient Portal/API
--- NOTE | 2021-12-25 08:54 | DI.RAD.S_ITS ---
PROCEDURE: XR CHEST 1V INDICATIONS: chest pain TECHNIQUE: One view of the chest was acquired. COMPARISON: [facility], CR, XR CHEST 1V, 12/18/2020, 8:23. FINDINGS: Surgical changes and devices: None. Lungs and pleura: Lungs are clear. No pleural effusions or pneumothorax. Mediastinum: Mediastinal and hilar contours appear similar to before. Heart size is normal. Bones and chest wall: No suspicious bony lesions. Overlying soft tissues appear unremarkable. IMPRESSION: No acute cardiopulmonary abnormality. Dictated by: Nikunj Rod M.D. on 12/25/2021 at 9:29 Approved by: Nikunj Rod M.D. on 12/25/2021 at 9:31
[2021-12-25 09:05] LABS: Add Manual Diff / Slide Review NO; Basophils Absolute Auto 100 /uL (0-100); Basophils Percent Auto 0.8 % (0-2); Eosinophils Absolute Auto 300 /uL (0-450); Eosinophils Percent Auto 3.4 % (2-4); Hematocrit 34.7 % (41-53); Lymphocytes Absolute Auto 900 /uL (1100-4500); Lymphocytes Percent Auto 10.9 % (25-40); Mean Corpuscular HGB Conc 34.5 % (30-36); Mean Corpuscular Hemoglobin 32.3 PG (26-34); Mean Corpuscular Volume 93.6 fL (80-100); Monocytes Absolute Auto 800 /uL (0-900); Monocytes Percent Auto 8.9 % (3-14); Neutrophils Absolute Auto 6600 /uL (1500-7000); Platelet Count 279 X10^3/uL (150-400); Red Blood Cell Count 3.71 X10^6/uL (4.5-5.9); Red Cell Distribution Width 14.5 % (11.6-14.8); White Blood Cell Count 8.7 X10^3/uL (4.5-11.0)
[2021-12-25 09:07] LABS: INR 3.8 (0.9-1.3); Prothrombin Time 43.4 SECONDS (10.1-12.7)
[2021-12-25 09:09] LABS: PTT Partial Thromboplastin Tim 49 SECONDS (26.4-36.2)
[2021-12-25 09:14] LABS: Alanine Aminotransferase 17 IU/L (<50); Albumin Globulin Ratio 1.3 (1.0-2.8); Alkaline Phosphatase 62 U/L (38-126); Aspartate Aminotransferase 22 IU/L (17-59); Bilirubin Total 0.5 mg/dL (0.2-1.3); Blood Urea Nitrogen 51 mg/dL (9-20); Calcium 9.3 mg/dL (8.4-10.2); Carbon Dioxide 22 mmol/L (22-32); Chloride 108 mmol/L (98-107); Creatine Kinase 79 U/L (55-170); Estimated Glomerular Filt Rate 39 mL/min (>60); Globulin 3.1 g/dL (1.7-4.1); Glucose 104 mg/dL (80-110); HEMOLYSIS 16 (0-50); Lipase 127 U/L (23-300); Potassium 4.5 mmol/L (3.4-5.1); Sodium 138 mmol/L (137-145); Total Protein 7.1 g/dL (6.3-8.2)
[2021-12-25 09:26] LABS: NT-proBNP (BNP-Adult 18+) 1020 pg/mL (<125); Troponin I < 0.012 ng/mL (0.01-0.034)
[2021-12-25] MEDS: ETOMIDATE 2 MG/ML 10 ML VIAL 8 MG IV (09:28)
[2021-12-25] MEDS: SODIUM CHLORIDE 0.9% 1,000 ML 150 ML IV (09:29)
[2021-12-25 09:37] LABS: COVID19 -Nasal RAPID Negative (Negative)
== END 2021-12-25 11:04 | disposition home or self-care (01) ==
PROVIDERS: Emergency Provider Emergency Medicine; Family Provider Specialist; PCP Student in an Organized Health Care Education/Training Program; Referring Provider Internal Medicine Cardiovascular Disease
DX: I48.91 Unspecified atrial fibrillation (principal); Z79.01 Long term (current) use of anticoagulants; Z20.822 Contact with and (suspected) exposure to COVID-19; R07.9 Chest pain, unspecified
CPT/HCPCS: 36415; 71045; 80053; 82550; 83690; 83880; 84484; 85025; 85610; 85730; 87635; 92960; 93005; 93010; 99285; C9803

== ENCOUNTER → 2022-01-06 09:23 | Outpatient (CLI) | payer MEDICARE, MEDICAID, SELFPAY ==
[2021-10-15 12:12] VITALS: BMI 28.5
[2022-01-06 10:51] LABS: Hemoglobin 11.5 g/dL (13.5-17.5); Mean Corpuscular HGB Conc 34.9 % (30-36); Mean Corpuscular Hemoglobin 32.8 PG (26-34); Mean Corpuscular Volume 93.7 fL (80-100); Platelet Count 231 X10^3/uL (150-400); Red Blood Cell Count 3.52 X10^6/uL (4.5-5.9); Red Cell Distribution Width 15.4 % (11.6-14.8); White Blood Cell Count 9.5 X10^3/uL (4.5-11.0)
[2022-01-06 10:57] LABS: INR 4.2 (0.9-1.3)
[2022-01-06 12:23] LABS: HEMOLYSIS < 15 (0-50); Iron 35 ug/dL (49-181)
[2022-01-06 12:25] LABS: BUN Creatinine Ratio 19.7 (6-22); Blood Urea Nitrogen 41 mg/dL (9-20); Calcium 8.8 mg/dL (8.4-10.2); Carbon Dioxide 24 mmol/L (22-32); Chloride 109 mmol/L (98-107); Estimated Glomerular Filt Rate 34 mL/min (>60); Glucose 86 mg/dL (80-110); HEMOLYSIS < 15 (0-50); Potassium 5.1 mmol/L (3.4-5.1); Sodium 139 mmol/L (137-145)
[2022-01-06 12:33] LABS: Percent Iron Saturation 10 % (20-50); Total Iron Binding Capacity 334 ug/dL (261-462); Transferrin 243 mg/dL (206-381)
[2022-01-06 12:53] LABS: Prostate Specific Antigen Scrn 4.39 ng/mL (0.1-4.0)
== END ==
PROVIDERS: Family Provider Specialist; PCP Student in an Organized Health Care Education/Training Program; Referring Provider Student in an Organized Health Care Education/Training Program; Visit Provider Student in an Organized Health Care Education/Training Program
DX: D50.8 Other iron deficiency anemias (principal); I48.92 Unspecified atrial flutter; Z12.5 Encounter for screening for malignant neoplasm of prostate; Z79.01 Long term (current) use of anticoagulants; N17.9 Acute kidney failure, unspecified
CPT/HCPCS: 36415; 80048; 83540; 83550; 85027; 85610; G0103

== ENCOUNTER → 2022-01-13 08:30 | Outpatient (CLI) | payer MEDICARE, MEDICAID, SELFPAY ==
[2021-10-15 12:12] VITALS: BMI 28.5
[2022-01-13 10:14] LABS: Alanine Aminotransferase 17 IU/L (<50); Albumin 3.6 g/dL (3.5-5.0); Albumin Globulin Ratio 1.4 (1.0-2.8); Alkaline Phosphatase 56 U/L (38-126); Aspartate Aminotransferase 18 IU/L (17-59); BUN Creatinine Ratio 24.2 (6-22); Bilirubin Total 0.5 mg/dL (0.2-1.3); Bilirubin Unconjugated 0.3 mg/dL (0.0-1.1); Blood Urea Nitrogen 46 mg/dL (9-20); Calcium 9.1 mg/dL (8.4-10.2); Carbon Dioxide 23 mmol/L (22-32); Chloride 108 mmol/L (98-107); Estimated Glomerular Filt Rate 37 mL/min (>60); Globulin 2.6 g/dL (1.7-4.1); Glucose 94 mg/dL (80-110); HEMOLYSIS < 15 (0-50); Potassium 5.1 mmol/L (3.4-5.1); Sodium 137 mmol/L (137-145); Total Protein 6.2 g/dL (6.3-8.2)
[2022-01-13 10:39] LABS: Thyroid Stimulating Hormone 3.94 uIU/mL (0.47-4.68)
== END ==
PROVIDERS: Family Provider Specialist; PCP Student in an Organized Health Care Education/Training Program; Referring Provider Internal Medicine Cardiovascular Disease; Visit Provider Internal Medicine Cardiovascular Disease
DX: Z79.899 Other long term (current) drug therapy (principal); I50.22 Chronic systolic (congestive) heart failure
CPT/HCPCS: 36415; 80053; 80076; 84443

== ENCOUNTER → 2022-02-13 11:38 | Outpatient (CLI) | payer MEDICARE, MEDICAID, SELFPAY ==
[2021-10-15 12:12] VITALS: BMI 28.5
[2022-02-13 14:26] LABS: Add Manual Diff / Slide Review NO; Basophils Absolute Auto 100 /uL (0-100); Basophils Percent Auto 0.8 % (0-2); Eosinophils Absolute Auto 200 /uL (0-450); Eosinophils Percent Auto 2.1 % (2-4); Hematocrit 34.5 % (41-53); Hemoglobin 11.8 g/dL (13.5-17.5); Lymphocytes Absolute Auto 600 /uL (1100-4500); Lymphocytes Percent Auto 7.3 % (25-40); Mean Corpuscular HGB Conc 34.2 % (30-36); Mean Corpuscular Hemoglobin 32.9 PG (26-34); Monocytes Absolute Auto 500 /uL (0-900); Monocytes Percent Auto 6.5 % (3-14); Neutrophils Absolute Auto 6900 /uL (1500-7000); Neutrophils Percent Auto 83.3 % (50-75); Platelet Count 247 X10^3/uL (150-400); White Blood Cell Count 8.3 X10^3/uL (4.5-11.0)
[2022-02-13 14:30] LABS: INR 1.1 (0.9-1.3); Prothrombin Time 13.1 SECONDS (10.1-12.7)
[2022-02-13 16:34] LABS: Alanine Aminotransferase 15 IU/L (<50); Albumin 3.6 g/dL (3.5-5.0); Albumin Globulin Ratio 1.3 (1.0-2.8); Alkaline Phosphatase 60 U/L (38-126); Aspartate Aminotransferase 16 IU/L (17-59); Bilirubin Total 0.5 mg/dL (0.2-1.3); Blood Urea Nitrogen 58 mg/dL (9-20); Calcium 9.1 mg/dL (8.4-10.2); Carbon Dioxide 21 mmol/L (22-32); Chloride 107 mmol/L (98-107); Estimated Glomerular Filt Rate 27 mL/min (>60); Globulin 2.7 g/dL (1.7-4.1); Glucose 99 mg/dL (80-110); HEMOLYSIS < 15 (0-50); Lipase 176 U/L (23-300); Sodium 136 mmol/L (137-145); Total Protein 6.3 g/dL (6.3-8.2)
[2022-02-13 16:45] LABS: Potassium 6.1 mmol/L (3.4-5.1)
[2022-02-13 17:04] LABS: Prostate Specific Antigen 2.91 ng/mL (0.10-4.00)
== END ==
PROVIDERS: Family Provider Specialist; PCP Student in an Organized Health Care Education/Training Program; Referring Provider Student in an Organized Health Care Education/Training Program; Visit Provider Student in an Organized Health Care Education/Training Program
DX: R10.13 Epigastric pain (principal); R97.20 Elevated prostate specific antigen [PSA]; Z79.01 Long term (current) use of anticoagulants
CPT/HCPCS: 36415; 80053; 83690; 84153; 85025; 85610

== ENCOUNTER → 2022-02-13 12:59 | Outpatient (CLI) | payer MEDICARE, MEDICAID, SELFPAY ==
[2021-10-15 12:12] VITALS: BMI 28.5
--- NOTE | 2022-02-13 13:04 | DI.CT.S_ITS ---
PROCEDURE: CT ABDOMEN PELVIS WO CON INDICATIONS: LLQ abdominal pain TECHNIQUE: Axial sections were acquired from the lung bases to the pubic symphysis. Coronal and sagittal reformats were performed. For radiation dose reduction, the following was used: automated exposure control, adjustment of mA and/or kV according to patient size. COMPARISON: [facility], CT, CT ABDOMEN PELVIS W CON, 11/01/2021, 13:48. FINDINGS: Image quality: Excellent. Lung bases: Unremarkable. Heart: No significant findings. URINARY: Right Kidney: No stones or hydronephrosis. Right Ureter: No hydroureter. Left Kidney: Large left parapelvic cyst is redemonstrated. No hydronephrosis or nephrolithiasis. Left Ureter: No hydroureter. Bladder: The bladder is fluid-filled and thin walled. There is a small diverticulum off the anterior aspect of the bladder. ABDOMEN: Liver: Unremarkable. Gallbladder: Unremarkable. Biliary ducts: Unremarkable. Pancreas: Unremarkable. Spleen: Unremarkable. Adrenal Glands: Unremarkable. Stomach and Bowel: Stomach, small bowel loops, and colon are unremarkable. The appendix is thin walled and gas filled. A moderate amount of inspissated stool is visualized throughout the left hemicolon. Peritoneum: No abnormal intraperitoneal fluid. No free air. Ventral Wall: No hernia. Abdominal Nodes: No enlarged retroperitoneal or mesenteric lymph nodes. Vessels: Aorta and inferior vena cava are normal in size. PELVIS: Pelvic Organs: Unremarkable. Pelvic Nodes: Unremarkable. Miscellaneous: No inguinal hernias are seen. Bones: Unremarkable. IMPRESSION: 1. No hydronephrosis, nephrolithiasis, hydroureter, or ureterolithiasis. There is a large left parapelvic cyst as before. 2. No acute intra-abdominal findings. Normal appendix. 3. Moderate amount of inspissated appearing stool throughout the left hemicolon. Dictated by: Veronique Paredes M.D. on 02/13/2022 at 13:26 Approved by: Veronique Paredes M.D. on 02/13/2022 at 13:33
== END ==
PROVIDERS: Family Provider Specialist; PCP Student in an Organized Health Care Education/Training Program; Referring Provider Student in an Organized Health Care Education/Training Program; Visit Provider Student in an Organized Health Care Education/Training Program
DX: N28.1 Cyst of kidney, acquired (principal); R10.32 Left lower quadrant pain; R10.13 Epigastric pain; R97.20 Elevated prostate specific antigen [PSA]; Z79.01 Long term (current) use of anticoagulants
CPT/HCPCS: 36415; 74176; 80053; 83690; 84153; 85025; 85610

== ENCOUNTER → 2022-02-21 08:31 | Outpatient (CLI) | payer MEDICARE, MEDICAID, SELFPAY ==
[2021-10-15 12:12] VITALS: BMI 28.5
[2022-02-21 10:26] LABS: BUN Creatinine Ratio 21.1 (6-22); Blood Urea Nitrogen 68 mg/dL (9-20); Calcium 9.3 mg/dL (8.4-10.2); Carbon Dioxide 25 mmol/L (22-32); Chloride 105 mmol/L (98-107); Estimated Glomerular Filt Rate 20 mL/min (>60); Glucose 94 mg/dL (80-110); HEMOLYSIS < 15 (0-50); Potassium 4.7 mmol/L (3.4-5.1); Sodium 136 mmol/L (137-145)
== END ==
PROVIDERS: Family Provider Specialist; PCP Student in an Organized Health Care Education/Training Program; Referring Provider Student in an Organized Health Care Education/Training Program; Visit Provider Student in an Organized Health Care Education/Training Program
DX: E87.5 Hyperkalemia (principal); N17.9 Acute kidney failure, unspecified
CPT/HCPCS: 36415; 80048

== ENCOUNTER → 2022-03-28 12:46 | Outpatient (CLI) | payer MEDICARE, MEDICAID, SELFPAY ==
[2021-10-15 12:12] VITALS: BMI 28.5
--- NOTE | 2022-03-28 | DI.US.S_ITS ---
PROCEDURE: US RENAL COMPLETE INDICATIONS: acute kidney failure, unspecified TECHNIQUE: Real-time scanning was performed of the kidneys and bladder, with image documentation. COMPARISON: [facility], CT, CT ABDOMEN PELVIS W CON, 11/01/2021, 13:48. [facility], US, US RENAL COMPLETE, 08/12/2019, 11:29. FINDINGS: Kidneys: Kidneys are normal in size. Right kidney measures 10.6 cm long; left kidney measures 13.2 cm long. Right renal cortical thickness is 0.9 cm; left renal cortical thickness is 0.9 cm. Renal cortical echotexture is normal. No hydronephrosis or nephrolithiasis. No suspicious solid mass lesions. There are multiple right renal peripelvic cysts largest in the midpole measuring 1.8 cm in size. On the left, redemonstration of large cyst with thin internal septations versus cluster of cysts measuring 9.2 x 5.9 x 5.8 cm. Accounting for differences in imaging technique, this is not significantly changed compared to CT dated November 01, 2021. Bladder: Pre-void bladder volume is 129 mL. Post-void residual is 106 mL. Pre-void images demonstrate no intraluminal masses or stones. On pre-void images, bilateral ureteral jets were not visualized with color Doppler interrogation. (Of note, ureteral jets may not be detectable in up to 25% of cases due to insufficient differences in specific gravity between ureteral and bladder urine). Miscellaneous: No free pelvic fluid. IMPRESSION: Bilateral kidneys without evidence for hydronephrosis or urolithiasis. There is bilateral renal cortical thinning. Stable size of large left superior/mid pole renal cyst with thin internal septations versus a cluster of cysts. Multiple right peripelvic renal cysts. Large postvoid residual volume measuring greater than prevoid volume. Dictated by: lVadimir Baker M.D. on 03/28/2022 at 16:38 Approved by: Vladimir Baker M.D. on 03/28/2022 at 16:45
== END ==
PROVIDERS: Family Provider Specialist; PCP Student in an Organized Health Care Education/Training Program; Referring Provider Internal Medicine Nephrology; Visit Provider Internal Medicine Nephrology
DX: N17.9 Acute kidney failure, unspecified (principal); N28.1 Cyst of kidney, acquired
CPT/HCPCS: 76770

== ENCOUNTER → 2022-04-21 07:45 | Outpatient (CLI) | payer MEDICARE, MEDICAID, SELFPAY ==
[2021-10-15 12:12] VITALS: BMI 28.5
[2022-04-21 09:02] LABS: Hemoglobin 11.9 g/dL (13.5-17.5)
[2022-04-21 09:14] LABS: Alanine Aminotransferase 14 IU/L (<50); Albumin 3.5 g/dL (3.5-5.0); Albumin Globulin Ratio 1.1 (1.0-2.8); Alkaline Phosphatase 63 U/L (38-126); Aspartate Aminotransferase 16 IU/L (17-59); BUN Creatinine Ratio 12.6 (6-22); Bilirubin Total 0.6 mg/dL (0.2-1.3); Blood Urea Nitrogen 13 mg/dL (9-20); Calcium 8.8 mg/dL (8.4-10.2); Carbon Dioxide 24 mmol/L (22-32); Chloride 107 mmol/L (98-107); Estimated Glomerular Filt Rate > 60 mL/min (>60); Globulin 3.1 g/dL (1.7-4.1); Glucose 101 mg/dL (80-110); HEMOLYSIS < 15 (0-50); Potassium 3.4 mmol/L (3.4-5.1); Sodium 140 mmol/L (137-145); Total Protein 6.6 g/dL (6.3-8.2)
[2022-04-21 09:44] LABS: Thyroid Stimulating Hormone 3.38 uIU/mL (0.47-4.68)
[2022-04-21 09:46] LABS: Hematocrit 34.7 % (41-53)
[2022-04-21 16:35] LABS: Creatinine Urine Random 227.5 mg/dL; Sodium Urine Random 29 mmol/L (30-90)
[2022-04-21 16:36] LABS: Microalbumi Creatinin Ratio Ur 46.5 ug/mg CR (<30); Microalbumin Urine Random 10.6 mg/dL (0-1.6)
[2022-04-22 19:53] LABS: Chloride, Urine <20 mmol/L (Not Estab.)
== END ==
PROVIDERS: Internal Medicine Nephrology; Nurse Practitioner Family; Family Provider Specialist; PCP Student in an Organized Health Care Education/Training Program; Referring Provider Internal Medicine Cardiovascular Disease; Visit Provider Internal Medicine Cardiovascular Disease
DX: Z79.899 Other long term (current) drug therapy (principal); N17.9 Acute kidney failure, unspecified
CPT/HCPCS: 36415; 80053; 82043; 82436; 82570; 84300; 84443; 85014; 85018

== ENCOUNTER → 2022-09-18 08:36 | Outpatient (CLI) | payer MEDICARE, MEDICAID, SELFPAY ==
[2021-10-15 12:12] VITALS: BMI 28.5
[2022-09-18 10:42] LABS: BUN Creatinine Ratio 27.4 (6-22); Blood Urea Nitrogen 40 mg/dL (9-20); Calcium 9.3 mg/dL (8.4-10.2); Carbon Dioxide 25 mmol/L (22-32); Chloride 106 mmol/L (98-107); Estimated Glomerular Filt Rate 51 mL/min (>60); Glucose 84 mg/dL (80-110); HEMOLYSIS < 15 (0-50); Potassium 4.4 mmol/L (3.4-5.1); Sodium 139 mmol/L (137-145)
== END ==
PROVIDERS: Family Provider Specialist; PCP Student in an Organized Health Care Education/Training Program; Referring Provider Physician Assistant Medical; Visit Provider Physician Assistant Medical
DX: I48.0 Paroxysmal atrial fibrillation (principal)
CPT/HCPCS: 36415; 80048

== ENCOUNTER → 2022-11-11 16:45 | Outpatient (CLI) | payer MEDICARE, MEDICAID, SELFPAY ==
[2021-10-15 12:12] VITALS: BMI 28.5
--- NOTE | 2022-11-11 16:47 | DI.RAD.S_ITS ---
PROCEDURE: XR ACUTE ABDOMEN SERIES INDICATIONS: diarrhea TECHNIQUE: One view chest and two views of the abdomen were acquired. COMPARISON: [facility], CT, CT ABDOMEN PELVIS WO CON, 02/13/2022, 13:11. [facility], CR, XR ACUTE ABDOMEN SERIES, 10/16/2018, 10:15. FINDINGS: Surgical changes and devices: Surgical material is seen projecting over the pelvis. Chest: Lungs are clear. Heart size is normal. No pleural effusions. No pneumoperitoneum. Abdomen: Bowel gas pattern is normal. Moderate stool in the colon. No suspicious calcifications. Visualized solid organ contours appear normal. Bones: Mild dextroconvex curvature of the spine with superimposed degenerative changes. Postsurgical changes are seen from left total hip arthroplasty and left anterior inferior iliac spine fixation. Mild lucency is seen adjacent to the femoral component of the left hip arthroplasty. IMPRESSION: 1. Nonobstructive bowel gas pattern. No pneumoperitoneum. Moderate stool burden. 2. Left total hip arthroplasty. Lucency adjacent to the femoral component may indicate loosening. Approved by: Nikunj Topete M.D. on 11/12/2022 at 10:01
[2022-11-11 17:57] LABS: Add Manual Diff / Slide Review NO; Basophils Absolute Auto 100 /uL (0-100); Basophils Percent Auto 0.8 % (0-2); Eosinophils Absolute Auto 200 /uL (0-450); Eosinophils Percent Auto 1.7 % (2-4); Hematocrit 33.3 % (41-53); Hemoglobin 11.3 g/dL (13.5-17.5); Lymphocytes Absolute Auto 600 /uL (1100-4500); Lymphocytes Percent Auto 6.6 % (25-40); Mean Corpuscular Hemoglobin 31.3 PG (26-34); Mean Corpuscular Volume 92.1 fL (80-100); Monocytes Absolute Auto 600 /uL (0-900); Monocytes Percent Auto 6.3 % (3-14); Neutrophils Absolute Auto 8400 /uL (1500-7000); Neutrophils Percent Auto 84.6 % (50-75); Platelet Count 267 X10^3/uL (150-400); Red Blood Cell Count 3.62 X10^6/uL (4.5-5.9); Red Cell Distribution Width 15.9 % (11.6-14.8); White Blood Cell Count 9.9 X10^3/uL (4.5-11.0)
[2022-11-11 18:39] LABS: Alanine Aminotransferase 22 IU/L (<50); Albumin 3.7 g/dL (3.5-5.0); Albumin Globulin Ratio 1.2 (1.0-2.8); Alkaline Phosphatase 65 U/L (38-126); Aspartate Aminotransferase 20 IU/L (17-59); BUN Creatinine Ratio 22.4 (6-22); Bilirubin Total 0.4 mg/dL (0.2-1.3); Blood Urea Nitrogen 81 mg/dL (9-20); Carbon Dioxide 17 mmol/L (22-32); Chloride 107 mmol/L (98-107); Estimated Glomerular Filt Rate 17 mL/min (>60); Globulin 3.2 g/dL (1.7-4.1); Glucose 103 mg/dL (80-110); HEMOLYSIS < 15 (0-50); Lipase 237 U/L (23-300); Sodium 135 mmol/L (137-145); Total Protein 6.9 g/dL (6.3-8.2)
[2022-11-11 18:43] LABS: Potassium 5.8 mmol/L (3.4-5.1)
[2022-11-11 19:05] LABS: TSH w/ Reflex to FT4 2.92 uIU/mL (0.47-4.68)
== END ==
PROVIDERS: Family Provider Specialist; PCP Student in an Organized Health Care Education/Training Program; Referring Provider Internal Medicine; Visit Provider Internal Medicine
DX: R19.7 Diarrhea, unspecified (principal); Z96.642 Presence of left artificial hip joint
CPT/HCPCS: 36415; 74022; 80053; 83690; 84443; 85025

== ENCOUNTER → 2022-11-21 07:55 | Outpatient (CLI) | payer MEDICARE, MEDICAID, SELFPAY ==
[2021-10-15 12:12] VITALS: BMI 28.5
[2022-11-21 09:12] LABS: BUN Creatinine Ratio 20.9 (6-22); Blood Urea Nitrogen 28 mg/dL (9-20); Calcium 9.5 mg/dL (8.4-10.2); Carbon Dioxide 20 mmol/L (22-32); Chloride 110 mmol/L (98-107); Estimated Glomerular Filt Rate 57 mL/min (>60); Glucose 93 mg/dL (80-110); HEMOLYSIS < 15 (0-50)
[2022-11-21 09:22] LABS: Potassium 4.6 mmol/L (3.4-5.1); Sodium 138 mmol/L (137-145)
== END ==
PROVIDERS: Family Provider Specialist; PCP Student in an Organized Health Care Education/Training Program; Referring Provider Internal Medicine; Visit Provider Internal Medicine
DX: N17.9 Acute kidney failure, unspecified (principal)
CPT/HCPCS: 36415; 80048

== ENCOUNTER → 2022-12-12 16:03 | Outpatient (CLI) | payer MEDICARE, MEDICAID, SELFPAY ==
[2021-10-15 12:12] VITALS: BMI 28.5
--- NOTE | 2022-12-12 16:04 | DI.US.S_ITS ---
PROCEDURE: US RENAL COMPLETE INDICATIONS: renal cyst TECHNIQUE: Real-time scanning was performed of the kidneys and bladder, with image documentation. COMPARISON: [facility], CT, CT ABDOMEN PELVIS WO CON, 02/13/2022, 13:11. FINDINGS: Kidneys: Kidneys are normal in size. Right kidney measures 10.2 cm long; left kidney measures 12.0 cm long. Right renal cortical thickness is 0.8 cm; left renal cortical thickness is 0.8 cm. Renal cortical echotexture is normal. No hydronephrosis or nephrolithiasis. No suspicious solid mass lesions. Bilateral renal cyst redemonstrated, largest of which is on the left measuring up to 10.3 cm which is similar prior examination. Bladder: Urinary bladder is relatively decompressed and suboptimally visualized. Miscellaneous: No free pelvic fluid. IMPRESSION: 1. Bilateral renal cysts, largest on the left measuring up to 10.3 cm which is similar prior examination given technique differences. Dictated by: Benito DELGADILLO Interpreted: Dione Duncan MD on 12/12/2022 at 16:36 Transcribed by: DEEPIKA on 12/12/2022 at 16:38 Approved by: Dione Duncan M.D. on 12/12/2022 at 22:37
== END ==
PROVIDERS: Family Provider Specialist; PCP Pediatrics; Referring Provider Specialist; Visit Provider Specialist
DX: N40.0 Benign prostatic hyperplasia without lower urinary tract symptoms (principal); N28.1 Cyst of kidney, acquired
CPT/HCPCS: 76770

== ENCOUNTER → 2022-12-24 08:07 | Outpatient (CLI) | payer MEDICARE, MEDICAID, SELFPAY ==
[2021-10-15 12:12] VITALS: BMI 28.5
[2022-12-24 11:10] LABS: Prostate Specific Antigen 4.39 ng/mL (0.10-4.00)
== END ==
PROVIDERS: Family Provider Specialist; PCP Pediatrics; Referring Provider Specialist; Visit Provider Specialist
DX: R97.20 Elevated prostate specific antigen [PSA] (principal)
CPT/HCPCS: 36415; 84153

== ENCOUNTER → 2022-12-31 15:19 | Outpatient (CLI) | payer MEDICARE, MEDICAID, SELFPAY ==
[2021-10-15 12:12] VITALS: BMI 28.5
== END ==
PROVIDERS: Family Provider Specialist; PCP Pediatrics; Visit Provider Specialist
DX: N40.0 Benign prostatic hyperplasia without lower urinary tract symptoms (principal); N31.9 Neuromuscular dysfunction of bladder, unspecified; R97.20 Elevated prostate specific antigen [PSA]; Z87.440 Personal history of urinary (tract) infections
CPT/HCPCS: 51798; 81002; 87077; 87086; 87186; 99215

== ENCOUNTER → 2023-02-05 13:22 | Outpatient (CLI) | payer MEDICARE, MEDICAID, SELFPAY ==
[2021-10-15 12:12] VITALS: BMI 28.5
[2023-02-05 14:47] LABS: Prothrombin Time 54.4 SECONDS (10.1-12.7)
[2023-02-05 14:55] LABS: INR 4.7 (0.9-1.3)
== END ==
PROVIDERS: Family Provider Specialist; PCP Pediatrics; Referring Provider Pediatrics; Visit Provider Pediatrics
DX: I48.0 Paroxysmal atrial fibrillation (principal)
CPT/HCPCS: 36415; 85610

== ENCOUNTER → 2023-02-23 11:33 | Outpatient (CLI) | payer MEDICARE, MEDICAID, SELFPAY ==
[2021-10-15 12:12] VITALS: BMI 28.5
[2023-02-23 13:14] LABS: INR 6.8 (0.9-1.3)
[2023-02-23 13:15] LABS: Prothrombin Time 80.2 SECONDS (10.1-12.7)
== END ==
PROVIDERS: Family Provider Specialist; PCP Pediatrics; Referring Provider Pediatrics; Visit Provider Pediatrics
DX: I82.409 Acute embolism and thrombosis of unspecified deep veins of unspecified lower extremity (principal)
CPT/HCPCS: 36415; 85610

== ENCOUNTER → 2023-03-12 14:14 | Outpatient (CLI) | payer MEDICARE, MEDICAID, SELFPAY ==
[2023-02-26 13:35] VITALS: BMI 28.5
[2023-03-12 15:27] LABS: INR 11.7 (0.9-1.3); Prothrombin Time 138.1 SECONDS (10.1-12.7)
== END ==
PROVIDERS: Family Provider Specialist; PCP Pediatrics; Referring Provider Pediatrics; Visit Provider Pediatrics
DX: I82.409 Acute embolism and thrombosis of unspecified deep veins of unspecified lower extremity (principal)
CPT/HCPCS: 36415; 85610

== ENCOUNTER 2023-03-12 14:33 | Emergency (ER) | payer MEDICARE, MEDICAID, SELFPAY ==
[2023-02-26 13:35] VITALS: BMI 28.5
[2023-03-12 14:36] VITALS: BP 171/72; PULSE 57; RESP 16; TEMP 36.6; O2SAT 98; BMI 24.3
[2023-03-12] MEDS: PHYTONADIONE (VIT K1) 5 MG TABLET 10 MG PO (15:56)
--- NOTE | 2023-03-12 15:58 | ED_ITS ---
HPI - Recheck/Abnormal Lab/Rx General Chief Complaint: Recheck/Abnormal Lab/Rx Stated Complaint: INR 8.0 Time Seen by Provider: 03/12/23 15:37 Source: patient Mode of arrival: Wheelchair History of Present Illness HPI narrative: 72-year-old male. Patient is on Coumadin for atrial fibrillation. His last dose of Coumadin was last evening. He had a checkup in the [facility] today. His INR was elevated. He is not having any active bleeding. No chest pain. No shortness of breath. No headache. No vomiting blood. No blood in his urine. No change in bowel habits or blood in his stool. Was sent to the emergency department because of an elevated INR Related Data Home Medications Medication Instructions Recorded Confirmed cholecalciferol (vitamin D3) 50 4,000 unit PO DAILY #0 caps 10/12/18 12/08/22 mcg (2,000 unit) capsule (Vitamin D3) ferrous sulfate 325 mg (65 mg 325 mg PO MOTUWETHFR 12/21/18 12/08/22 iron) tablet acetaminophen 500 mg capsule 1,000 mg PO Q6H PRN pain 02/23/19 12/08/22 ascorbate calcium (vitamin C) 500 1,000 mg PO DAILY 12/18/20 12/08/22 mg capsule spironolactone 25 mg tablet 25 mg PO DAILY 07/23/22 12/08/22 carvedilol 12.5 mg tablet 25 mg PO BID 07/26/22 12/08/22 losartan 50 mg tablet 50 mg PO BID 07/26/22 12/08/22 Previous Rx's Medication Instructions Recorded furosemide 20 mg tablet 20 mg PO DAILY #90 tabs 02/02/19 amiodarone 200 mg tablet 200 mg PO DAILY #30 tabs 02/25/19 tamsulosin 0.4 mg capsule (Flomax) 0.4 mg PO DAILY #90 caps 12/09/21 amlodipine 10 mg tablet 10 mg PO DAILY #90 tabs 07/26/22 methenamine hippurate 1 gram tablet 1 g PO BID #180 tabs 12/31/22 atorvastatin 20 mg tablet (Lipitor) 20 mg PO BEDTIME #90 tabs 01/05/23 warfarin 3 mg tablet See Rx Instructions .Route 02/12/23 .COMPLEX #76 tabs Allergies Allergy/AdvReac Type Severity Reaction Status Date / Time ciprofloxacin Allergy Severe BREATHING Verified 12/08/22 09:47 PROBLEMS, CHILLS, SHAKES alendronate sodium AdvReac Severe GI bleed Verified 12/08/22 09:47 [ALENDRONATE SODIUM] cephalexin AdvReac Mild Headache Verified 12/08/22 09:47 morphine AdvReac Mild ABD PAIN Verified 12/08/22 09:47 Review of Systems Review of Systems ROS Unobtainable: All systems reviewed & are unremarkable except as noted in HPI and below Patient History Medical History Aortic regurgitation BPH (benign prostatic hyperplasia) Cyst of left kidney Dilated cardiomyopathy (07/28/17) Elevated PSA Encephalopathy (Unknown) Essential hypertension (07/20/02) Gastric ulcer (Unknown) HFrEF (heart failure with reduced ejection fraction) History of UTI Hyperlipidemia (10/13/11) Iron deficiency anemia due to dietary causes Neoplasm of uncertain behavior of bladder Neurogenic bladder (Unknown) Neuropathy (Unknown) Osteoarthritis (Unknown) Osteopenia (04/29/16) Paroxysmal atrial fibrillation 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) Typical atrial flutter Surgical History History of bilateral knee replacement (Unknown) History of colon resection History of left hip replacement (Unknown) Hx of shoulder surgery (Unknown) Status post cardiac catheterization (~2020) Family History Mother Cancer Medical history unknown Father Medical history unknown Social History marital status: unknown household members: none occupational status: previously employed Smoking Status: Never smoker second hand exposure: No alcohol intake: never substance use type: does not use Smoking Status: Never smoker alcohol intake frequency: other Substance Use Type: does not use Exam Initial Vital Signs Initial Vital Signs: Vital Signs Temperature 97.9 F 03/12/23 14:36 Pulse Rate 57 L 03/12/23 14:36 Respiratory Rate 16 03/12/23 14:36 Blood Pressure 171/72 H 03/12/23 14:36 Pulse Oximetry 98 03/12/23 14:36 Oxygen Delivery Method Room Air 03/12/23 14:36 HENGA Head: normal to inspection and normocephalic Resp Effort & Inspection: normal respiratory effort Cardio Rate: regular rate GI Inspection: normal to inspection Neuro General: patient alert, patient awake and moves all extremities Course Orders Ordered: Discontinued Medications Phytonadione (Phytonadione (Vit K1) 5 Mg Tablet) 10 mg PO NOW ONE Stop: 03/12/23 15:51 Last Admin: 03/12/23 15:56 Dose: 10 mg Documented By: FRANCOIS Vital Signs Vital signs: Vital Signs - 8 hr 03/12/23 14:36 Temperature 97.9 F Pulse Rate 57 L Respiratory Rate 16 Blood Pressure 171/72 H Pulse Oximetry 98 Oxygen Delivery Method Room Air MDM - Recheck/Abnormal Lab/Rx MDM Narrative Medical decision making narrative: He does have a supratherapeutic INR but no active bleeding. It is greater than 10 so he was given a dose of vitamin K. Will discharge patient home. He is not going to take Coumadin until he follows up with the Coumadin clinic on Thursday. He was given return precautions. Discharge Plan Departure Patient Disposition: Home Clinical Impression: Supratherapeutic INR Activity Restrictions/Additional Instructions: Continue all of your medications as directed but do not take your C oumadin/warfarin until you have your follow-up on Thursday morning. Return to the emergency department for hit a worsening symptoms or signs of bleeding. Prescriptions: No Action cholecalciferol (vitamin D3) [Vitamin D3] 2,000 unit capsule 4,000 unit PO DAILY Qty: 0 furosemide 20 mg tablet 20 mg PO DAILY Qty: 90 1RF tamsulosin [Flomax] 0.4 mg capsule 0.4 mg PO DAILY Qty: 90 3RF atorvastatin [Lipitor] 20 mg tablet 20 mg PO BEDTIME Qty: 90 3RF warfarin 3 mg tablet See Rx Instructions .ROUTE .COMPLEX Qty: 76 2RF Dose Instruction: TAKE 1.5MG THURSDAY AND THURSDAY. TAKE 3MG ALL OTHER DAYS, OR DIRECTED AT BEDTIME. Rx Instructions: TAKE 1.5MG THURSDAY AND THURSDAY. TAKE 3MG ALL OTHER DAYS, OR DIRECTED AT BEDTIME. ferrous sulfate 325 mg (65 mg iron) tablet 325 mg PO MOTUWETHFR Patient Comments: spironolactone 25 mg tablet 25 mg PO DAILY amlodipine 10 mg tablet 10 mg PO DAILY Qty: 90 3RF carvedilol 12.5 mg tablet 25 mg PO BID losartan 50 mg tablet 50 mg PO BID Hold Instructions: hypotension acetaminophen 500 mg capsule 1,000 mg PO Q6H PRN (Reason: pain) amiodarone 200 mg tablet 200 mg PO DAILY Qty: 30 0RF Rx Instructions: Start after 1 week of 400 mg twice daily ascorbate calcium (vitamin C) 500 mg Capsule 1,000 mg PO DAILY methenamine hippurate 1 gram tablet 1 g PO BID Qty: 180 5RF Rx Instructions: Take 1 tablet with 500 mg vitamin-C twice daily as directed. Referrals: Isael Dubose MD [Primary Care Provider] - Stand Alone Forms: Patient Portal/API
[2023-03-12 16:20] VITALS: BP 161/70; PULSE 51; RESP 14; O2SAT 95
== END 2023-03-12 16:20 | disposition home or self-care (01) ==
PROVIDERS: Emergency Provider Emergency Medicine; Family Provider Specialist; PCP Pediatrics
DX: R79.1 Abnormal coagulation profile (principal); Z79.01 Long term (current) use of anticoagulants; I82.409 Acute embolism and thrombosis of unspecified deep veins of unspecified lower extremity
CPT/HCPCS: 36415; 85610; 99283

== ENCOUNTER → 2023-04-09 13:16 | Outpatient (CLI) | payer MEDICARE, MEDICAID, SELFPAY ==
[2023-02-26 13:35] VITALS: BMI 28.5
[2023-04-09 14:55] LABS: Prothrombin Time 106.3 SECONDS (10.1-12.7)
== END ==
PROVIDERS: Family Provider Specialist; PCP Internal Medicine; Referring Provider Internal Medicine; Visit Provider Internal Medicine
DX: I82.409 Acute embolism and thrombosis of unspecified deep veins of unspecified lower extremity (principal)
CPT/HCPCS: 36415; 85610

== ENCOUNTER 2023-04-19 09:15 | Inpatient (IN) | payer MEDICARE, MEDICAID, SELFPAY ==
[2023-02-26 13:35] VITALS: BMI 28.5
[2023-04-19] VITALS (27 sets, daily range): BP systolic 143–222; BP diastolic 48–84; PULSE 52–67; RESP 16–24; TEMP 36.5–36.8; O2SAT 92–96; BMI 25.8
--- NOTE | 2023-04-19 09:32 | DI.RAD.S_ITS ---
PROCEDURE: XR CHEST 1V INDICATIONS: Shortness of breath TECHNIQUE: One view of the chest was acquired. COMPARISON: [facility], CR, XR CHEST 1V, 12/25/2021, 8:59. FINDINGS: Surgical changes and devices: None. Lungs and pleura: There is small to moderate right pleural effusion. Pulmonary vascular congestion is seen. Small infiltrate/atelectasis at right infrahilar region is noted. No pneumothorax. Mediastinum: Mediastinal contours appear normal. Heart size is enlarged. Bones and chest wall: No suspicious bony lesions. Overlying soft tissues appear unremarkable. IMPRESSION: Cardiomegaly and congestion. Small to moderate right pleural effusion. Mild pulmonary edema. Cannot rule out small right lower lobe infiltrate versus atelectasis. No pneumothorax. Dictated by: Trevon Maldonado M.D. on 04/19/2023 at 9:58 Approved by: Trevon Maldonado M.D. on 04/19/2023 at 9:59
--- NOTE | 2023-04-19 09:40 | PC.NURSE ---
Pt states he has had hematuria that he noticed this last week. He self catheterizes 3x/day due to urinary retention. Pt states he has had problems stabilizing his INR
[2023-04-19 09:55] LABS: Add Manual Diff / Slide Review NO; Basophils Absolute Auto 100 /uL (0-100); Eosinophils Absolute Auto 100 /uL (0-450); Hematocrit 30.4 % (41-53); Hemoglobin 10.1 g/dL (13.5-17.5); Lymphocytes Absolute Auto 700 /uL (1100-4500); Lymphocytes Percent Auto 9.1 % (25-40); Mean Corpuscular HGB Conc 33.4 % (30-36); Mean Corpuscular Hemoglobin 29.4 PG (26-34); Mean Corpuscular Volume 88.2 fL (80-100); Monocytes Absolute Auto 600 /uL (0-900); Monocytes Percent Auto 7.3 % (3-14); Neutrophils Absolute Auto 6600 /uL (1500-7000); Neutrophils Percent Auto 81.6 % (50-75); Platelet Count 265 X10^3/uL (150-400); Red Blood Cell Count 3.44 X10^6/uL (4.5-5.9); Red Cell Distribution Width 16.4 % (11.6-14.8); White Blood Cell Count 8.1 X10^3/uL (4.5-11.0)
[2023-04-19 10:02] LABS: Prothrombin Time 58.4 SECONDS (10.1-12.7)
[2023-04-19 10:05] LABS: Lactate (Lactic Acid) 1.2 mmol/L (0.7-2.1)
[2023-04-19 10:06] LABS: Alanine Aminotransferase 16 IU/L (<50); Albumin 3.6 g/dL (3.5-5.0); Albumin Globulin Ratio 1.2 (1.0-2.8); Alkaline Phosphatase 63 U/L (38-126); Aspartate Aminotransferase 17 IU/L (17-59); BUN Creatinine Ratio 20.5 (6-22); Bilirubin Total 0.7 mg/dL (0.2-1.3); Blood Urea Nitrogen 18 mg/dL (9-20); Calcium 9.3 mg/dL (8.4-10.2); Carbon Dioxide 25 mmol/L (22-32); Chloride 110 mmol/L (98-107); Estimated Glomerular Filt Rate > 60 mL/min (>60); Globulin 2.9 g/dL (1.7-4.1); Glucose 99 mg/dL (80-110); HEMOLYSIS < 15 (0-50); Potassium 3.7 mmol/L (3.4-5.1); Sodium 139 mmol/L (137-145); Total Protein 6.5 g/dL (6.3-8.2)
--- NOTE | 2023-04-19 10:08 | ED_ITS ---
HPI - SOB/Dyspnea General Chief Complaint: Shortness of Breath/Dyspnea Stated Complaint: BP is high/problems breathing when laying down Time Seen by Provider: 04/19/23 09:32 History of Present Illness HPI Narrative: Patient is a 72-year-old male history of paroxysmal atrial fibrillation, hypertension on warfarin Coreg and amiodarone, presenting today with elevated blood pressure and shortness of breath. He reports that over the last 3 days he is had increasing shortness of breath especially with exertion and some orthopnea. He has chest pain when he coughs. He denies any productive cough. He reports he is having some lower extremity edema. No palpitations. He does appear in sinus rhythm on the monitor. He denies any fever chills no abdominal pain nausea or vomiting. They have had difficulty keeping INR in the therapeutic range. It has been quite elevated that has been quite low as well. It seems to be fluctuating. He reports that he was taken off his Lasix due to hypotension and he is not taken Lasix and away. According to records he had a echocardiogram done it [facility] June 2022 which showed an EF of 50-55%. Patient gets around by crutches because he is had multiple joint replacements which have not worked he still in pain. Patient reports that he self catheterize his 3 times daily due to neurogenic bladder. Related Data Home Medications Medication Instructions Recorded Confirmed cholecalciferol (vitamin D3) 50 4,000 unit PO DAILY #0 caps 10/12/18 04/19/23 mcg (2,000 unit) capsule (Vitamin D3) ferrous sulfate 325 mg (65 mg 325 mg PO MOTUWETHFR 12/21/18 04/19/23 iron) tablet acetaminophen 500 mg capsule 1,000 mg PO Q6H PRN pain 02/23/19 04/19/23 ascorbate calcium (vitamin C) 500 1,000 mg PO DAILY 12/18/20 04/19/23 mg capsule carvedilol 12.5 mg tablet 25 mg PO BID 07/26/22 04/19/23 losartan 50 mg tablet 50 mg PO BID 07/26/22 04/19/23 amiodarone 200 mg tablet 100 mg PO DAILY 04/19/23 04/19/23 Previous Rx's Medication Instructions Recorded atorvastatin 20 mg tablet (Lipitor) 20 mg PO BEDTIME #90 tabs 01/05/23 warfarin 3 mg tablet See Rx Instructions .Route 02/12/23 .COMPLEX #76 tabs tamsulosin 0.4 mg capsule (Flomax) 0.4 mg PO DAILY #30 caps 04/01/23 Allergies Allergy/AdvReac Type Severity Reaction Status Date / Time ciprofloxacin Allergy Severe BREATHING Verified 12/08/22 09:47 PROBLEMS, CHILLS, SHAKES alendronate sodium AdvReac Severe GI bleed Verified 12/08/22 09:47 [ALENDRONATE SODIUM] cephalexin AdvReac Mild Headache Verified 12/08/22 09:47 morphine AdvReac Mild ABD PAIN Verified 12/08/22 09:47 Review of Systems Review of Systems ROS Unobtainable: All systems reviewed & are unremarkable except as noted in HPI and below Patient History Medical History History of UTI Typical atrial flutter Paroxysmal atrial fibrillation 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) Aortic regurgitation BPH (benign prostatic hyperplasia) Cyst of left kidney Neoplasm of uncertain behavior of bladder HFrEF (heart failure with reduced ejection fraction) Elevated PSA Iron deficiency anemia due to dietary causes Neurogenic bladder (Unknown) Neuropathy (Unknown) Encephalopathy (Unknown) Gastric ulcer (Unknown) Osteoarthritis (Unknown) Dilated cardiomyopathy (07/28/17) Osteopenia (04/29/16) Hyperlipidemia (10/13/11) Essential hypertension (07/20/02) Surgical History Status post cardiac catheterization (~2020) History of colon resection Hx of shoulder surgery (Unknown) History of left hip replacement (Unknown) History of bilateral knee replacement (Unknown) Family History Mother Cancer Medical history unknown Father Medical history unknown Social History marital status: unknown household members: none occupational status: previously employed Smoking Status: Never smoker second hand exposure: No alcohol intake: never substance use type: does not use Smoking Status: Never smoker alcohol intake frequency: other Substance Use Type: does not use Exam Initial Vital Signs Initial Vital Signs: Vital Signs Temperature 98.3 F 04/19/23 09:20 Pulse Rate 67 04/19/23 09:20 Respiratory Rate 24 04/19/23 09:20 Blood Pressure 222/84 H 04/19/23 09:20 Pulse Oximetry 96 04/19/23 09:20 Oxygen Delivery Method Room Air 04/19/23 09:20 GENERAL: 72-year-old male appears pale chronically ill and weak and in no acute distress. HEENT: Head atraumatic,EOMI, pupils reactive, face symmetric, moist mucous membranes CARDIOVASCULAR: Regular rate and rhythm without murmurs, rubs or gallops. RESPIRATORY: Breath sounds equal bilaterally, no wheezes rales or rhonchi. ABDOMEN: Soft, nontender. Normoactive bowel sounds all 4 quadrants. No guarding or rebound. EXTREMITIES: Normal range of motion, no clubbing. +1 bilateral pitting edema Neurovascularly intact NEUROLOGICAL: Alert and oriented x4.Normal gait and speech. SKIN: Warm, dry, no laceration, no petechiae, no rashes or lesions. Course Orders Ordered: ED Orders 04/19/23 09:32 XR chest 1V Stat EKG-12 Lead Stat Measure peak expiratory flow ONCE RT Consult Eval and Treat NOW 04/19/23 09:44 Complete Blood Count AUTO DIFF Stat Comprehensive Metabolic Panel Stat Lactate (Lactic Acid) Stat NT-proBNP (BNP-Adult 18+) Stat Prothrombin Time INR Stat Troponin I Stat 04/19/23 12:15 Urine Culture Stat Urine Microscopic Stat 04/19/23 12:35 Trop I [Troponin I] Stat Acetaminophen (Acetaminophen 325 Mg Tablet) 650 mg PO Q6H PRN PRN Reason: Fever/Mild Pain (1-3) Amiodarone HCl (Amiodarone 200 Mg Tablet) 200 mg PO DAILY [facility] Amlodipine Besylate (Amlodipine 5 Mg Tablet) 10 mg PO DAILY [facility] Atorvastatin Calcium (Atorvastatin 20 Mg Tablet) 20 mg PO BEDTIME [facility] Furosemide (Furosemide 40 Mg/4 Ml Vial) 40 mg IV 1600,0800 [facility] Ceftriaxone Sodium 1,000 mg/ (Sodium Chloride) 100 mls @ 200 mls/hr IV Q24H RICARDO Stop: 04/23/23 15:46 Labetalol HCl (Labetalol 20 Mg/4 Ml Syringe) 10 mg IV Q5MIN PRN PRN Reason: SBP >180 or DBP >110 Losartan Potassium (Losartan 50 Mg Tablet) 50 mg PO BID [facility] Melatonin (Melatonin 3 Mg Tablet) 6 mg PO BEDTIME PRN PRN Reason: Insomnia Naloxone HCl (Naloxone 0.4 Mg/Ml Vial) 0.2 mg IV Q2MIN PRN PRN Reason: Opiate Reversal Polyethylene Glycol (Polyethylene Glycol 3350 17 Gm Powd.Pack) 17 gm PO DAILY PRN PRN Reason: Constipation Sennosides (Sennosides 8.6 Mg Tablet) 8.6 mg PO BID PRN PRN Reason: Constipation Tamsulosin HCl (Tamsulosin 0.4 Mg Capsule) 0.4 mg PO DAILY [facility] Warfarin Protocol (Warfarin Per Pharmacy (Inr 2-3)) 1 request MISC NOW PRN PRN Reason: A-fib Discontinued Medications Furosemide (Furosemide 40 Mg/4 Ml Vial) 40 mg IV NOW ONE Stop: 04/19/23 10:25 Last Admin: 04/19/23 10:40 Dose: 40 mg Documented By: SONIA Labetalol HCl (Labetalol 20 Mg/4 Ml Syringe) 5 mg IV NOW ONE Stop: 04/19/23 12:36 Last Admin: 04/19/23 13:09 Dose: Not Given Documented By: SONIA Vital Signs Vital signs: Vital Signs - 8 hr 04/19/23 09:20 04/19/23 09:49 04/19/23 10:00 Temperature 98.3 F Pulse Rate 67 58 L 57 L Respiratory Rate 24 22 21 Blood Pressure 222/84 H Pulse Oximetry 96 94 Oxygen Delivery Method Room Air 04/19/23 10:01 04/19/23 10:01 04/19/23 10:30 Temperature Pulse Rate 57 L 55 L Respiratory Rate 20 18 Blood Pressure 200/82 H Pulse Oximetry 93 93 Oxygen Delivery Method Room Air 04/19/23 10:31 04/19/23 10:31 04/19/23 11:00 Temperature Pulse Rate 55 L 55 L Respiratory Rate 18 17 Blood Pressure 196/81 H Pulse Oximetry 93 94 Oxygen Delivery Method Room Air Room Air 04/19/23 11:00 04/19/23 11:30 04/19/23 11:31 Temperature Pulse Rate 56 L 56 L Respiratory Rate 20 21 Blood Pressure 206/84 H Pulse Oximetry 94 95 Oxygen Delivery Method Room Air 04/19/23 11:31 04/19/23 12:00 04/19/23 12:00 Temperature Pulse Rate 60 Respiratory Rate 23 Blood Pressure 198/83 H 218/84 H Pulse Oximetry 94 Oxygen Delivery Method Room Air 04/19/23 12:30 04/19/23 12:31 04/19/23 12:31 Temperature Pulse Rate 55 L 56 L Respiratory Rate 21 22 Blood Pressure 194/79 H Pulse Oximetry 93 95 Oxygen Delivery Method Room Air 04/19/23 13:00 04/19/23 13:01 04/19/23 13:01 Temperature Pulse Rate 53 L 55 L Respiratory Rate 21 20 Blood Pressure 194/79 H Pulse Oximetry 93 92 Oxygen Delivery Method Room Air Room Air 04/19/23 13:09 04/19/23 13:30 04/19/23 13:31 Temperature Pulse Rate 52 L 57 L 58 L Respiratory Rate 18 23 Blood Pressure Pulse Oximetry 96 95 Oxygen Delivery Method 04/19/23 13:31 04/19/23 14:00 04/19/23 14:03 Temperature Pulse Rate 57 L 54 L Respiratory Rate 21 20 Blood Pressure 182/74 H Pulse Oximetry 94 95 Oxygen Delivery Method Room Air 04/19/23 14:03 04/19/23 14:30 04/19/23 14:31 Temperature Pulse Rate 52 L Respiratory Rate 20 Blood Pressure 195/80 H 199/82 H Pulse Oximetry 94 Oxygen Delivery Method Room Air 04/19/23 14:31 04/19/23 15:00 04/19/23 15:01 Temperature Pulse Rate 52 L 56 L 55 L Respiratory Rate 20 21 17 Blood Pressure Pulse Oximetry 94 94 94 Oxygen Delivery Method 04/19/23 15:01 04/19/23 15:30 04/19/23 15:30 Temperature Pulse Rate 56 L Respiratory Rate 21 Blood Pressure 194/82 H 195/82 H Pulse Oximetry 93 Oxygen Delivery Method MDM - SOB/Dyspnea Lab Data 04/19/23 09:44 04/19/23 09:44 Labs: Lab Results 04/19/23 04/19/23 04/19/23 Range/Units 09:44 12:15 12:35 WBC 8.1 (4.5-11.0) X10^3/uL RBC 3.44 L (4.5-5.9) X10^6/uL Hgb 10.1 L (13.5-17.5) g/dL Hct 30.4 L (41-53) % MCV 88.2 (80-100) fL MCH 29.4 (26-34) PG MCHC 33.4 (30-36) % RDW 16.4 H (11.6-14.8) % Plt Count 265 (150-400) X10^3/uL Neut % (Auto) 81.6 H (50-75) % Lymph % (Auto) 9.1 L (25-40) % Stephenson % (Auto) 7.3 (3-14) % Eos % (Auto) 1.0 L (2-4) % Baso % (Auto) 1.0 (0-2) % Neut # (Auto) 6600 (6245-7566) /uL Lymph # (Auto) 700 L (2644-0843) /uL [place] # (Auto) 600 (0-900) /uL Eos # (Auto) 100 (0-450) /uL Baso # (Auto) 100 (0-100) /uL PT 58.4 H D (10.1-12.7) SECONDS INR 5.0 H* (0.9-1.3) Sodium 139 (137-145) mmol/L Potassium 3.7 (3.4-5.1) mmol/L Chloride 110 H (98-107) mmol/L Carbon Dioxide 25 (22-32) mmol/L BUN 18 (9-20) mg/dL Creatinine 0.88 (0.66-1.25) mg/dL Estimated GFR > 60 (>60) mL/min BUN/Creatinine Ratio 20.5 (6-22) Glucose 99 (80-110) mg/dL Lactate 1.2 (0.7-2.1) mmol/L Calcium 9.3 (8.4-10.2) mg/dL Magnesium 1.9 (1.6-2.3) mg/dL Total Bilirubin 0.7 (0.2-1.3) mg/dL AST 17 (17-59) IU/L ALT 16 (<50) IU/L Alkaline Phosphatase 63 (38-126) U/L Troponin I 0.033 0.040 H (0.01-0.034) ng/mL NT-Pro-B Natriuret Pep 87627 H (<125) pg/mL Total Protein 6.5 (6.3-8.2) g/dL Albumin 3.6 (3.5-5.0) g/dL Globulin 2.9 (1.7-4.1) g/dL Albumin/Globulin Ratio 1.2 (1.0-2.8) Urine RBC 10-30/hpf H (0-5/HPF) Urine WBC 10-30/hpf H (0-5/HPF) Ur Squamous Epith Cells 0-1 /hpf (0-5/HPF) Urine Bacteria Many (>30) H (None) Ur Culture Indicated? Specimen cultured Urine Dip Bedside Urine Glucose Negative Bedside Urine Bilirubin - Negative Bedside Urine Ketone - Negative Urine Specific [place] 1.010 Bedside Urine Occult Blood +++ Bedside Urine pH 6.0 Bedside Urine Protein - Negative Bedside Urine Urobilinogen - Negative Bedside Urine Nitrite + Positive Bedside Urine Leukocytes ++ 125 Esterase Imaging Data Chest x-ray: Radiologist's Impression: PROCEDURE: XR CHEST 1V INDICATIONS: Shortness of breath TECHNIQUE: One view of the chest was acquired. COMPARISON: [facility], , XR CHEST 1V, 12/25/2021, 8:59. FINDINGS: Surgical changes and devices: None. Lungs and pleura: There is small to moderate right pleural effusion. Pulmonary vascular congestion is seen. Small infiltrate/atelectasis at right infrahilar region is noted. No pneumothorax. Mediastinum: Mediastinal contours appear normal. Heart size is enlarged. Bones and chest wall: No suspicious bony lesions. Overlying soft tissues appear unremarkable. IMPRESSION: Cardiomegaly and congestion. Small to moderate right pleural effusion. Mild pulmonary edema. Cannot rule out small right lower lobe infiltrate versus atelectasis. No pneumothorax. Dictated by: Trevon Maldonado M.D. on 04/19/2023 at 9:58 Approved by: Trevon Maldonado M.D. on 04/19/2023 at 9:59 ECG Data Interpretation: Sinus rhythm rate [address] changes artifact noted R-waves and P waves do March out but to be maybe some artifact. Do not agree with junctional rhythm EKG sinus rhythm rate [address] changes similar to prior MDM Narrative Medical decision making narrative: Patient is 72-year-old male who presents today with increasing shortness of breath and elevated blood pressure. He is not been on furosemide for an unknown period of time. He is noted does blood pressure is quite elevated. He is not really having chest pain. On exam he has some mild pitting edema he is not hypoxic. Blood work has been reviewed [place] [id number], troponin 0.03. Electrolytes are stable creatinine stable. No leukocytosis or anemia. INR today is 5 which is improved. He does have nitrates in his urine but no evidence of sepsis Chest x-ray shows right pleural effusion increased cardiomegaly and congestion. This is new from previous x-ray Patient is given Lasix in the ED. However unfortunately he failed to tell us that he self catheterize 3 times daily. Requesting a Garcia catheter. With persistently elevated blood pressure obvious fluid overload on blood work and chest x-ray discussed case with Dr. Horne about admission for diuresis. He accepts patient. Discharge Plan Departure Patient Disposition: Home Clinical Impression: CHF (congestive heart failure)
[2023-04-19 10:18] LABS: NT-proBNP (BNP-Adult 18+) 12200 pg/mL (<125); Troponin I 0.033 ng/mL (0.01-0.034)
[2023-04-19] MEDS: FUROSEMIDE 40 MG/4 ML VIAL IV ×2 (10:40→18:15)
--- NOTE | 2023-04-19 12:16 | PC.NURSE ---
Patient tolerated procedure well, bag hanging below patient with no dependant loops, draining.
--- NOTE | 2023-04-19 14:04 | PC.NURSE ---
Pt states he is feeling a little better after being diuresed. He still has some shortness of breath.
[2023-04-19 14:44] LABS: Bacteria Urine Many (>30); RBC Urine 10-30/HPF (0-5/HPF); WBC Urine 10-30/HPF (0-5/HPF)
[2023-04-19 14:45] LABS: Culture Indicated Urine Specimen Cultured; Squamous Epithelial Cell Urine 0-1 /HPF (0-5/HPF)
--- NOTE | 2023-04-19 15:46 | DI.ECHO.S_ITS ---
[facility] +---------+ : : [address] : : : : [id number] : : : : Phone: [phone]+ Echocardiogram Report + + :Name: EULOGIO BENAVIDEZ Study Date: 04/20/2023 Height: 69 in : :[facility] ReadingLocation: Weight: 174 lb : : Gender: Male BSA: 1.9 m2 : :: 1950 Age: 72 yrs BP: 173/65 mmHg: :Reason For Study: Congestive Heart Failure : :Ordering Physician: SALAS, : :MERCEDES Hu Performed By: Rekha Norris : :Referring: MERCEDES MARINA : + + Interpretation Summary The ejection fraction is estimated to be 45-50%. Inferolateral hypokinesis. The aortic valve is not well visualized. There is severe aortic regurgitation. Compared to the prior echo study, there has been an increase in the severity of aortic regurgitation. There is mild tricuspid regurgitation. Procedure: A two-dimensional transthoracic echocardiogram with color flow and Doppler was performed. The study quality was technically adequate. Comparison is made with the echocardiogram of 07/08/2022. The patient was in a bradycardic rhythm during the exam. Left Ventricle: The left ventricle is severely dilated. The ejection fraction is estimated to be 45-50%. Inferolateral hypokinesis. Diastolic parameters suggest a relaxation abnormality of the left ventricle, consistent with probable normal filling pressures. Right Ventricle: The right ventricle is normal in size and function. Atria: The left atrium is severely dilated. Right atrial size is normal. There is no Doppler evidence for an interatrial shunt. Mitral Valve: The mitral valve is normal in structure but abnormal in function. There is mild mitral regurgitation. Aortic Valve: The aortic valve is not well visualized. The peak aortic velocity is 2.13 m/sec. The aortic valve mean gradient is 9 mmHg. There is severe aortic regurgitation. Compared to the prior echo study, there has been an increase in the severity of aortic regurgitation. Tricuspid Valve: The tricuspid valve is normal. There is no tricuspid stenosis. There is mild tricuspid regurgitation. Pulmonic Valve: The pulmonic valve is not well visualized. There is no pulmonic valvular stenosis. There is trace pulmonic regurgitation. Great Vessels: The aortic root is moderately dilated. The ascending aorta is mildly enlarged. The pulmonary artery is normal size. The inferior vena cava was not well visualized. Pericardium/ Pleura There is a trivial to small pericardial effusion noted. MMode/2D Measurements & Calculations LVIDd: 6.5 cm LVOT diam: 3.0 cm LVIDs: 4.3 cm Ao root diam: 4.4 cm FS: 33.8 % asc Aorta Diam: 4.3 cm IVSd: 1.6 cm LVPWd: 1.6 cm LV fulton. diameter/BSA (cm/m^2): 3.3 LV sys. diameter/BSA (cm/m^2): 2.2 LA A2 area: 23.4 cm2 RA long axis: 5.4 cm LA A4 area: 20.6 cm2 RA area: 14.8 cm2 LA length (vol): 5.1 cm RA vol: 34.8 ml LA vol: 80.5 ml RA : 17.8 ml/m2 LA vol index: 41.4 ml/m2 RVD1 (basal): 3.7 cm LVLs ap4: 8.7 cm LVLd ap2: 9.6 cm TAPSE_phl: 2.8 cm LVLs ap2: 8.9 cm Doppler Measurements & Calculations Ao V2 max: 198.8 cm/sec LVOT Max Anthony: 178.0 cm/sec Ao V2 mean: 131.2 cm/sec LV V1 max P.7 mmHg Ao max P.0 mmHg LV V1 VTI: 34.0 cm Ao mean P.2 mmHg CATERINA(I,D): 5.6 cm2 Ao V2 VTI: 42.6 cm CATERINA(V,D): 6.3 cm2 sev ratio: 0.80 CATERINA indexed to BSA (cm^2/m^2): 2.9 TR max anthony: 253.7 cm/sec SV(LVOT): 240.0 ml TR max P.7 mmHg PA V2 max: 99.9 cm/sec PA V2 mean: 67.8 cm/sec PA mean P.0 mmHg PA pr(Accel): 18.2 mmHg AV VR_phl: 0.89 CATERINA(VTI)/BSA_phl: 2.9 Reading Physician:10:31 AM
[2023-04-19 16:05] LABS: Magnesium 1.9 mg/dL (1.6-2.3)
--- NOTE | 2023-04-19 16:24 | P.HP_ITS ---
History of Present Illness History of Present Illness Date Patient Seen: 04/19/23 Time Patient Seen: 18:44 Chief complaint: BP is high/problems breathing when laying down Narrative: Josh Mcguire is a 72yo M with PMH of paroxysmal atrial fibrillation on warfarin, dilated cardiomyopathy, mod-severe AR, hypertension, hyperlipidemia, neurogenic bladder with daily self-cath, BPH, and AAA who presents with worsening dyspnea. He states over the past week he has become progressively SOB with exertion. No orthopnea. No LE edema. He also noticed wheezes and a slight cough. Denies sick contacts. In the ED found to have cardiomegaly, pulm edema on CXR and elevated BNP to 12k. He denies any COPD history, but was exposed to second-hand smoke for several years by both his parents who smoked in the house. UA showed pyuria so given rocephin. He denies CP, abd pain, diarrhea, hematuria or headache. 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) Aortic regurgitation BPH (benign prostatic hyperplasia) Cyst of left kidney Neoplasm of uncertain behavior of bladder HFrEF (heart failure with reduced ejection fraction) Elevated PSA Iron deficiency anemia due to dietary causes Neurogenic bladder (Unknown) Neuropathy (Unknown) Encephalopathy (Unknown) Gastric ulcer (Unknown) Osteoarthritis (Unknown) Dilated cardiomyopathy (07/28/17) Osteopenia (04/29/16) Hyperlipidemia (10/13/11) Essential hypertension (07/20/02) Surgical History Status post cardiac catheterization (~2020) History of colon resection Hx of shoulder surgery (Unknown) History of left hip replacement (Unknown) History of bilateral knee replacement (Unknown) Family History Mother Cancer Medical history unknown Father Medical history unknown Social History marital status: unknown household members: none occupational status: previously employed Smoking Status: Never smoker second hand exposure: No alcohol intake: never substance use type: does not use Meds Home Medications and Allergies Home Medications Medication Instructions Recorded Confirmed Type cholecalciferol (vitamin D3) 50 4,000 unit PO DAILY #0 caps 10/12/18 04/19/23 History mcg (2,000 unit) capsule (Vitamin D3) ferrous sulfate 325 mg (65 mg 325 mg PO MOTUWETHFR 12/21/18 04/19/23 History iron) tablet acetaminophen 500 mg capsule 1,000 mg PO Q6H PRN pain 02/23/19 04/19/23 History ascorbate calcium (vitamin C) 500 1,000 mg PO DAILY 12/18/20 04/19/23 History mg capsule carvedilol 12.5 mg tablet 25 mg PO BID 07/26/22 04/19/23 History losartan 50 mg tablet 50 mg PO BID 07/26/22 04/19/23 History atorvastatin 20 mg tablet (Lipitor) 20 mg PO BEDTIME #90 tabs 01/05/23 04/19/23 Rx warfarin 3 mg tablet See Rx Instructions .Route 02/12/23 04/19/23 Rx .COMPLEX #76 tabs tamsulosin 0.4 mg capsule (Flomax) 0.4 mg PO DAILY #30 caps 04/01/23 04/19/23 Rx amiodarone 200 mg tablet 100 mg PO DAILY 04/19/23 04/19/23 History Allergies Allergy/AdvReac Type Severity Reaction Status Date / Time ciprofloxacin Allergy Severe BREATHING Verified 12/08/22 09:47 PROBLEMS, CHILLS, SHAKES alendronate sodium AdvReac Severe GI bleed Verified 12/08/22 09:47 [ALENDRONATE SODIUM] cephalexin AdvReac Mild Headache Verified 12/08/22 09:47 morphine AdvReac Mild ABD PAIN Verified 12/08/22 09:47 Review of Systems Review of Systems Narrative: All other systems reviewed with the patient and are negative unless otherwise stated. Exam Vital Signs (past 8 hours): - 04/19/23 09:20 04/19/23 09:49 04/19/23 10:00 Temperature 98.3 F Pulse Rate 67 58 L 57 L Respiratory Rate 24 22 21 Blood Pressure 222/84 H Pulse Oximetry 96 94 Oxygen Delivery Method Room Air 04/19/23 10:01 04/19/23 10:01 04/19/23 10:30 Temperature Pulse Rate 57 L 55 L Respiratory Rate 20 18 Blood Pressure 200/82 H Pulse Oximetry 93 93 Oxygen Delivery Method Room Air 04/19/23 10:31 04/19/23 10:31 04/19/23 11:00 Temperature Pulse Rate 55 L 55 L Respiratory Rate 18 17 Blood Pressure 196/81 H Pulse Oximetry 93 94 Oxygen Delivery Method Room Air Room Air 04/19/23 11:00 04/19/23 11:30 04/19/23 11:31 Temperature Pulse Rate 56 L 56 L Respiratory Rate 20 21 Blood Pressure 206/84 H Pulse Oximetry 94 95 Oxygen Delivery Method Room Air 04/19/23 11:31 04/19/23 12:00 04/19/23 12:00 Temperature Pulse Rate 60 Respiratory Rate 23 Blood Pressure 198/83 H 218/84 H Pulse Oximetry 94 Oxygen Delivery Method Room Air 04/19/23 12:30 04/19/23 12:31 04/19/23 12:31 Temperature Pulse Rate 55 L 56 L Respiratory Rate 21 22 Blood Pressure 194/79 H Pulse Oximetry 93 95 Oxygen Delivery Method Room Air 04/19/23 13:00 04/19/23 13:01 04/19/23 13:01 Temperature Pulse Rate 53 L 55 L Respiratory Rate 21 20 Blood Pressure 194/79 H Pulse Oximetry 93 92 Oxygen Delivery Method Room Air Room Air 04/19/23 13:09 04/19/23 13:30 04/19/23 13:31 Temperature Pulse Rate 52 L 57 L 58 L Respiratory Rate 18 23 Blood Pressure Pulse Oximetry 96 95 Oxygen Delivery Method 04/19/23 13:31 04/19/23 14:00 04/19/23 14:03 Temperature Pulse Rate 57 L 54 L Respiratory Rate 21 20 Blood Pressure 182/74 H Pulse Oximetry 94 95 Oxygen Delivery Method Room Air 04/19/23 14:03 04/19/23 14:30 04/19/23 14:31 Temperature Pulse Rate 52 L Respiratory Rate 20 Blood Pressure 195/80 H 199/82 H Pulse Oximetry 94 Oxygen Delivery Method Room Air 04/19/23 14:31 04/19/23 15:00 04/19/23 15:01 Temperature Pulse Rate 52 L 56 L 55 L Respiratory Rate 20 21 17 Blood Pressure Pulse Oximetry 94 94 94 Oxygen Delivery Method 04/19/23 15:01 04/19/23 15:30 04/19/23 15:30 Temperature Pulse Rate 56 L Respiratory Rate 21 Blood Pressure 194/82 H 195/82 H Pulse Oximetry 93 Oxygen Delivery Method 04/19/23 16:00 04/19/23 16:00 Temperature Pulse Rate 55 L Respiratory Rate 16 Blood Pressure 200/81 H Pulse Oximetry 96 Oxygen Delivery Method Room Air Oxygen Delivery Method Room Air Narrative Exam Narrative: GEN: no acute distress HEENT: moist mucous membranes, PERRL NECK: trachea midline, no JVD CV: regular rate and rhythm, no murmurs PULM: slight expiratory wheezes ABD: soft, nontender, nondistended, no organomegaly EXT: warm and well perfused with no edema NEURO: awake, alert, oriented, no focal deficits Objective Labs 04/19/23 09:44 04/19/23 09:44 Labs: Laboratory Results - last 24 hr 04/19/23 04/19/23 04/19/23 09:44 12:15 12:35 WBC 8.1 RBC 3.44 L Hgb 10.1 L Hct 30.4 L MCV 88.2 MCH 29.4 MCHC 33.4 RDW 16.4 H Plt Count 265 Neut % (Auto) 81.6 H Lymph % (Auto) 9.1 L [place] % (Auto) 7.3 Eos % (Auto) 1.0 L Baso % (Auto) 1.0 Neut # (Auto) 6600 Lymph # (Auto) 700 L [place] # (Auto) 600 Eos # (Auto) 100 Baso # (Auto) 100 PT 58.4 H D INR 5.0 H* Sodium 139 Potassium 3.7 Chloride 110 H Carbon Dioxide 25 BUN 18 Creatinine 0.88 Estimated GFR > 60 BUN/Creatinine Ratio 20.5 Glucose 99 Lactate 1.2 Calcium 9.3 Magnesium 1.9 Total Bilirubin 0.7 AST 17 ALT 16 Alkaline Phosphatase 63 Troponin I 0.033 0.040 H NT-Pro-B Natriuret Pep 98695 H Total Protein 6.5 Albumin 3.6 Globulin 2.9 Albumin/Globulin Ratio 1.2 Urine RBC 10-30/hpf H Urine WBC 10-30/hpf H Ur Squamous Epith Cells 0-1 /hpf Urine Bacteria Many (>30) H Ur Culture Indicated? Specimen cultured Assessment & Plan Assessment & Plan narrative: # CHF exacerbation -presenting with dyspnea, cardiomegaly and pulmonary edema on chest x-ray. BNP 12k -lasix 40mg IV BID -echo ordered, previous echo 55-60% in November 2019. 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 Has been on amio for over a year -prednisone 40mg x5 days ordered -duonebs PRN -continue amio 100mg daily for now, consider CT chest if dyspnea not improving # hypertensive urgency -systolic over 200s -continue home blood pressure meds amlodipine, coreg and losartan -labetalol IV as needed # possible UTI -self caths due to neurogenic bladder, UA with pyuria -continue Rocephin -follow-up urine culture -aldana inserted in ED for diuresis # paroxysmal atrial fibrillation -currently rate controlled -continue home coreg, amio and warfarin # supratherapeutic INR -currently 5, no evidence of bleeding -warfarin per pharmacy -monitor # BPH -continue flomax # HLD -continue statin Code status is full code. DVT prophylaxis with warfarin. Proxy is sister Deyanira. I have reviewed home meds and used all available resources to reconcile the home meds. Case discussed with ED physician/APC and patient will be admitted to the hospitalist service for further workup and management. This patient will be admitted as inpatient and will require greater than 2 midnights of hospital time to treat CHF exacerbation.
[2023-04-19] MEDS: cefTRIAXone 1,000 MG in SODIUM CHLORIDE 0.9% 100 ML 200 MG IV (18:12)
[2023-04-19] MEDS: AMLODIPINE 5 MG TABLET 10 MG PO (18:49)
[2023-04-19 19:18] LABS: Procalcitonin 0.05 ng/mL (<0.5)
[2023-04-19] MEDS: ATORVASTATIN 20 MG TABLET PO (20:46)
[2023-04-19] MEDS: predniSONE 20 MG TABLET 40 MG PO (20:46)
[2023-04-19] MEDS: AMIODARONE 200 MG TABLET 100 MG PO (20:48)
--- NOTE | 2023-04-19 20:56 | PC.NURSE ---
2044: BP 143/48 (89) HR 55. Made dr. mackenzie aware, stated ok to hold corega nd losartan, but give amiodarone. Orders followed through.
[2023-04-20] VITALS (7 sets, daily range): BP systolic 113–167; BP diastolic 45–61; PULSE 56–72; RESP 16–18; TEMP 36.1–36.8; O2SAT 93–96
[2023-04-20 06:16] LABS: Prothrombin Time 64.7 SECONDS (10.1-12.7)
[2023-04-20 06:18] LABS: INR 5.5 (0.9-1.3)
[2023-04-20 06:19] LABS: Hematocrit 33.2 % (41-53); Hemoglobin 10.9 g/dL (13.5-17.5); Mean Corpuscular HGB Conc 32.9 % (30-36); Mean Corpuscular Hemoglobin 28.9 PG (26-34); Mean Corpuscular Volume 87.9 fL (80-100); Platelet Count 274 X10^3/uL (150-400); Red Blood Cell Count 3.78 X10^6/uL (4.5-5.9); Red Cell Distribution Width 15.9 % (11.6-14.8); White Blood Cell Count 5.4 X10^3/uL (4.5-11.0)
[2023-04-20 06:20] LABS: Add Manual Diff / Slide Review YES; BUN Creatinine Ratio 22.8 (6-22); Blood Urea Nitrogen 21 mg/dL (9-20); Calcium 8.8 mg/dL (8.4-10.2); Carbon Dioxide 22 mmol/L (22-32); Chloride 106 mmol/L (98-107); Estimated Glomerular Filt Rate > 60 mL/min (>60); Glucose 118 mg/dL (80-110); HEMOLYSIS 49 (0-50); Potassium 3.7 mmol/L (3.4-5.1); Sodium 137 mmol/L (137-145)
[2023-04-20 06:43] LABS: Anisocytosis 1+; Neutrophils Absolute Manual 5130 /uL (3000-5900); Schistocytes 1+; Total Cells Counted 100
[2023-04-20] MEDS: FUROSEMIDE 40 MG/4 ML VIAL IV ×2 (08:53→16:44)
[2023-04-20] MEDS: carvediloL 12.5 MG TABLET 25 MG PO (10:12)
[2023-04-20] MEDS: TAMSULOSIN 0.4 MG CAPSULE PO (10:12)
[2023-04-20] MEDS: AMLODIPINE 5 MG TABLET 10 MG PO (10:12)
[2023-04-20] MEDS: predniSONE 20 MG TABLET 40 MG PO (10:12)
[2023-04-20] MEDS: AMIODARONE 200 MG TABLET 100 MG PO (10:13)
[2023-04-20] MEDS: LOSARTAN 50 MG TABLET PO (10:14)
--- NOTE | 2023-04-20 12:21 | CM.DANOTE ---
Patient is a 72 yo male who was admitted on 04/19/23 for BP issues/SOB. Pt has [facility] and [facility] for insurance and his PCP is Dr. Jose L Yadav. EMR was reviewed. Per MD, pt with hx of AFIB and neurogenic bladder and self caths at baseline and admitted for CHF exacerbation and possible COPD and UTI. PT ordered and pending. SW met bedside with pt and explained role and he confirms he still lives in [place] in an apartment alone and typically uses crutches still for ambulation at baseline. Pt still drives but states only in town short distances and will usually accept transport with family and friends if available. Pt cannot remember who he assigned as his DPOA but thinks either his sister who lives in [facility] or his cousin Shaquille who lives in [place] also. Pt denies having any children or other local family but does have multiple friends who are supportive. Pt states he used HH a couple years ago when he had a knee replacement and did go to SNF at [facility] after a hip fx a couple years ago. Pt unsure if he would need HH at d/c and states he is starting to feel better but has not been up much yet and awaiting PT eval to help determine if he may need HH or not. Plan: SW to follow closely for PT eval and recommendations to confirm safe d/c home and r/o HH needs. 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 No Advance Directives on File No History Provided By Patient,Medical Record Has Patient been admitted in last 30 No days? Prior Living Arrangements Apartment/Condo Household Members none Type of transporation used prior to Drives own vehicle admit Comment Only drives a little and short distances Independent with ADL's Yes Is patient alert and oriented? Yes Caregiver for Another No DME Already Rented / Owned Crutches Comment Patient reports that he uses crutches at [facility]. Comment Pending PT eval and recommendations, r/o HH Barriers to Discharge No Discharge Plan Home Transportation Arrangement States his local friend plans to transport home at d/c Additional Comment r/o HH pending PT eval Whiteboard Updated in Patient Room with Yes name and ext. # of Mining Teacher Review Status In Process Please Provide Date Initial DC 04/20/23 Assessment Was Performed Next Review Type Continued Stay Review
--- NOTE | 2023-04-20 15:21 | PT.IIE ---
Surgical History (Last Reviewed 04/19/23 @ 10:20 by Yelitza Nix DO) History of bilateral knee replacement (Unknown) History of colon resection History of left hip replacement (Unknown) Hx of shoulder surgery (Unknown) Status post cardiac catheterization (~2020) Medical History (Last Reviewed 04/19/23 @ 10:20 by Yelitza Nix DO) Aortic regurgitation BPH (benign prostatic hyperplasia) Cyst of left kidney Dilated cardiomyopathy (07/28/17) Elevated PSA Encephalopathy (Unknown) Essential hypertension (07/20/02) Gastric ulcer (Unknown) HFrEF (heart failure with reduced ejection fraction) History of UTI Hyperlipidemia (10/13/11) Iron deficiency anemia due to dietary causes Neoplasm of uncertain behavior of bladder Neurogenic bladder (Unknown) Neuropathy (Unknown) Osteoarthritis (Unknown) Osteopenia (04/29/16) Paroxysmal atrial fibrillation 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) Typical atrial flutter Physical Therapy Inpatient Evaluation/Re-Eval M1 PT/OT-IP Prior Functional Status Start: 04/20/23 13:53 Freq: NEEDED Status: Active Protocol: Document 04/20/23 15:21 KJ (Rec: 04/20/23 15:48 KJ [id number]) Medical Review Prior Functional Status Medical History Reviewed Yes Communication Alert and oriented x 4 Mobility and Gait Pt reports mobility by furniture surfing at home, was able to ambulate w/axillary crutches outside of the home and by using shopping cart for support while shopping, however recently has had several falls and increased pain in the LLE, which has limited his mobility significantly. Activities of Daily Living and IADL's Pt reports previously being indep in ADLs, meal preparation, driving, shopping , however recently has been getting more help from friends /family. He has not been able to go shopping recently. Social History Household Members none Living Arrangements Apartment/Condo Number of Stairs To Enter/Railing? 1 w/out railing Home Environment Standard Height Toilet,Tub/ Shower Home Equipment Crutches Employment Status Retired Additional Social History Comment Pt states he places blankets on the edge of the tub and then sits on them to bathe. Pt admits recently slipping off the edge of the tub while bathing. Pt states he tried a shower chair at one point but it wouldn't fit into the tub due to a small/odd shape. M2 PT-IP Current Condition Start: 04/20/23 13:53 Freq: NEEDED Status: Active Protocol: Document 04/20/23 15:21 KJ (Rec: 04/20/23 15:48 KJ [id number]) Physical Therapy Current Condition Current Condition Evaluation Date 04/20/23 Treatment Diagnosis Impaired mobility, LE weakness Onset Date unknown M3 PT-IP Subjective Start: 04/20/23 13:53 Freq: NEEDED Status: Active Protocol: Document 04/20/23 15:21 KJ (Rec: 04/20/23 15:48 KJ [id number]) Subjective Physical Therapy Visit Type Type Initial Evaluation Visit Start Time 14:31 Visit Stop Time 15:21 Total Visit Minutes 50 Physical Therapy Visit Comments Patient Comments Pt has a complicated history. 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 Pt states he has had several falls recently when one crutch would be caught on something causing him to fall onto the L hip at least twice. Pt states he thinks his LLE pain and difficulty moving is caused by his back. Pt cannot recall seeing a physician to evaluate the back. Patient Goals To go home and be able to take care of himself. Therapy Pain Assessment Pain When Pain Assessed At Rest Pain Present Pain Present Pain Reported Location Left Hip Description Cramping Pain Behaviors Holding Area Pain Management Techniques Re-positioning M4 PT-IP Mobility and Gait Start: 04/20/23 13:53 Freq: NEEDED Status: Active Protocol: Document 04/20/23 15:21 KJ (Rec: 04/20/23 15:48 KJ [id number]) PT-Bed Mobility Assessment Rolling Type of Rolling Roll to Right Level of Assist Standby Assistance Supine to Sit Supine to Sit Standby Assistance Sit to Supine Sit to Supine Standby Assistance Scooting Scooting to Edge of Bed Standby Assistance Scooting Up and Down in Bed Standby Assistance PT-Transfer Assessment Sit to and From Stand Sit to and from Stand Contact Guard Assistance Equipment Transfer Assistive Device Gait Belt,Front Wheeled Walker Orthotic/Prosthetic Devices or Brace: No Comments Mobility Comments Pt had difficulty moving in bed, needing to lift his legs using his arms rather than intrinsically using his leg muscles. The LLE needed more assistance than the RLE. Gait Assessment Gait Distance (Feet) 0 Assistive Devices Assistive Device Gait Belt,Front Wheeled Walker Factors Limiting Gait Function Factors Limiting Gait Function Decreased Strength,Limited Range of Motion Comments Gait Comments Pt was unable to maintain upright standing using walker. PT-Balance Assessment Sitting Balance and Reactions Static Sitting Balance Ability Good Dynamic Sitting Balance Ability Good Standing Balance and Reactions Static Standing Balance Ability Poor Device Used fww M5 PT-IP Objective Assessments Start: 04/20/23 13:53 Freq: NEEDED Status: Active Protocol: Document 04/20/23 15:21 KJ (Rec: 04/20/23 15:48 KJ [id number]) Orientation Orientation/Cognition Level of Alertness Alert Orientation Name,Age,Birthday,Month,Date, Year,Day of Week,Place, Situation Language Function Ability No Deficits Noted Safety Awareness Decreased Safety Awareness Memory Description No Deficits Noted Comments Medical history is complicated , pt appears to confuse history of medical problems Gross Range of Motion Lower Extremity ROM Assessment Bilaterally Impaired Impairments Decreased passive knee ext bilaterally. L knee -23 degrees, R knee -14 degrees in sitting L hip AROM decreased Strength Lower Extremity Strength Hip Weakness in L hip flex and abduction Knee WFL within available ROM Ankle WFL M6 PT-IP Treatment Start: 04/20/23 13:53 Freq: NEEDED Status: Active Protocol: Document 04/20/23 15:21 KJ (Rec: 04/20/23 15:48 KJ [id number]) Physical Therapy Treatment Education Education Provided Safety Equipment Issued Equipment Type and Company front wheeled walker M7 PT-IP Assessment and Plan Start: 04/20/23 13:53 Freq: NEEDED Status: Active Protocol: Document 04/20/23 15:21 KJ (Rec: 04/20/23 15:48 KJ [id number]) PT Summary Assessment and Plan Potential Rehabilitation Potential Good Status of Condition at Evaluation Evolving Summary Impairments ROM,Strength,Balance,Bed Mobility,Transfers,Gait Assessment Summary Pt demonstrates weakness and impairment in ROM. It is difficult to determine if this is acute or chronic, as patient has been dependent on crutches for quite some time. Goals Bed Mobility Goal Independent Transfer Goal Independent Gait Goal Independent,Front Wheel Walker Gait Distance 50' Days to Meet Goals 5 Frequency of Treatment Frequency Of Treatment Once a Day Treatment Plan Physical Therapy Treatment Plan Transfer Training,Gait Training,Therapeutic Exercise, Balance Retraining Recommendations To Nursing Amount of Assist Needed 1 Person Assist Discharge Recommendations PT Discharge Recommendations SNF Rehab Equipment Needed for Home Before front wheeled walker, shower Discharge bench Transportation Needs at Discharge Wheelchair/Cabulance
[2023-04-20] MEDS: cefTRIAXone 1,000 MG in SODIUM CHLORIDE 0.9% 100 ML 200 MG IV (18:17)
--- NOTE | 2023-04-20 20:48 | PM.PN.1 ---
Subjective Subjective Date Patient Seen: 04/20/23 Time Patient Seen: 08:00 Interval history: His breathing is much improved. However he is very weak. Exam Vital Signs (past 8 hours): - 04/20/23 16:00 Temperature 98.1 F Pulse Rate 71 Respiratory Rate 16 Blood Pressure 137/55 L Pulse Oximetry 93 Oxygen Delivery Method Room Air Oxygen Flow Rate 0 Narrative Exam Narrative: GEN: no acute distress HEENT: moist mucous membranes, PERRL NECK: trachea midline, no JVD CV: regular rate and rhythm, no murmurs PULM: slight expiratory wheezes ABD: soft, nontender, nondistended, no organomegaly EXT: warm and well perfused with no edema NEURO: awake, alert, oriented, no focal deficits Objective Labs 04/20/23 05:54 04/20/23 05:54 Labs: Laboratory Results - last 24 hr 04/20/23 05:54 WBC 5.4 RBC 3.78 L Hgb 10.9 L Hct 33.2 L MCV 87.9 MCH 28.9 MCHC 32.9 RDW 15.9 H Plt Count 274 Neut % (Auto) Not Reportable Lymph % (Auto) Not Reportable Saunders % (Auto) Not Reportable Eos % (Auto) Not Reportable Baso % (Auto) Not Reportable Lymph # (Auto) Not Reportable Saunders # (Auto) Not Reportable Baso # (Auto) Not Reportable Total Counted 100 Seg Neutrophils % 95.0 H Lymphocytes % (Manual) 4.0 L Monocytes % (Manual) 1.0 L Neutrophils # (Manual) 5130 RBC Morphology See below Anisocytosis 1+ H Schistocytes 1+ H PT 64.7 H D INR 5.5 H* Sodium 137 Potassium 3.7 Chloride 106 Carbon Dioxide 22 BUN 21 H Creatinine 0.92 Estimated GFR > 60 BUN/Creatinine Ratio 22.8 H Glucose 118 H Calcium 8.8 PFSH Medical History History of UTI Typical atrial flutter Paroxysmal atrial fibrillation 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) Aortic regurgitation BPH (benign prostatic hyperplasia) Cyst of left kidney Neoplasm of uncertain behavior of bladder HFrEF (heart failure with reduced ejection fraction) Elevated PSA Iron deficiency anemia due to dietary causes Neurogenic bladder (Unknown) Neuropathy (Unknown) Encephalopathy (Unknown) Gastric ulcer (Unknown) Osteoarthritis (Unknown) Dilated cardiomyopathy (07/28/17) Osteopenia (04/29/16) Hyperlipidemia (10/13/11) Essential hypertension (07/20/02) Surgical History Status post cardiac catheterization (~2020) History of colon resection Hx of shoulder surgery (Unknown) History of left hip replacement (Unknown) History of bilateral knee replacement (Unknown) Family History Mother Cancer Medical history unknown Father Medical history unknown Social History marital status: unknown household members: none occupational status: previously employed Smoking Status: Never smoker second hand exposure: No alcohol intake: never substance use type: does not use Assessment & Plan Assessment & Plan narrative: # CHF exacerbation -presenting with dyspnea, cardiomegaly and pulmonary edema on chest x-ray. BNP 12k -lasix 40mg IV BID -echo ordered, previous echo 55-60% in November 2019. 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 Has been on amio for over a year -prednisone 40mg x5 days ordered -duonebs PRN -continue amio 100mg daily for now, consider CT chest if dyspnea not improving # hypertensive urgency -systolic over 200s -continue home blood pressure meds amlodipine, coreg and losartan -labetalol IV as needed # possible UTI -self caths due to neurogenic bladder, UA with pyuria -continue Rocephin -follow-up urine culture -aldana inserted in ED for diuresis # paroxysmal atrial fibrillation -currently rate controlled -continue home coreg, amio and warfarin # supratherapeutic INR -currently 5, no evidence of bleeding -warfarin per pharmacy -monitor # BPH -continue flomax # HLD -continue statin Dispo: He is medically stable for discharge. PT worked with him and he is quite weak. SNF placement is attempted [facility] Deep Vein Thrombosis/Pulmonary Embolism Present on Admission: No
[2023-04-20] MEDS: ATORVASTATIN 20 MG TABLET PO (20:54)
[2023-04-21] VITALS: BP 135/47; PULSE 86; RESP 17; TEMP 36.1; O2SAT 98
[2023-04-21 04:00] VITALS: BP 139/52; PULSE 61; RESP 17; TEMP 36.7; O2SAT 94
[2023-04-21] MEDS: SODIUM CHLORIDE 0.9% FLUSH 10 ML IV ×2 (06:16→09:06)
[2023-04-21 06:34] LABS: Add Manual Diff / Slide Review NO; Basophils Absolute Auto 0 /uL (0-100); Basophils Percent Auto 0.1 % (0-2); Eosinophils Absolute Auto 0 /uL (0-450); Hematocrit 31.3 % (41-53); Hemoglobin 10.4 g/dL (13.5-17.5); Lymphocytes Absolute Auto 600 /uL (1100-4500); Lymphocytes Percent Auto 5.8 % (25-40); Mean Corpuscular HGB Conc 33.2 % (30-36); Mean Corpuscular Hemoglobin 28.8 PG (26-34); Mean Corpuscular Volume 86.7 fL (80-100); Monocytes Absolute Auto 900 /uL (0-900); Monocytes Percent Auto 8.6 % (3-14); Neutrophils Absolute Auto 8800 /uL (1500-7000); Neutrophils Percent Auto 85.5 % (50-75); Platelet Count 270 X10^3/uL (150-400); Red Blood Cell Count 3.61 X10^6/uL (4.5-5.9); Red Cell Distribution Width 16.6 % (11.6-14.8); White Blood Cell Count 10.3 X10^3/uL (4.5-11.0)
[2023-04-21 06:35] LABS: INR 3.9 (0.9-1.3); Prothrombin Time 45.1 SECONDS (10.1-12.7)
[2023-04-21 06:43] LABS: Blood Urea Nitrogen 33 mg/dL (9-20); Calcium 8.5 mg/dL (8.4-10.2); Carbon Dioxide 25 mmol/L (22-32); Chloride 105 mmol/L (98-107); Estimated Glomerular Filt Rate > 60 mL/min (>60); Glucose 114 mg/dL (80-110); HEMOLYSIS < 15 (0-50); Potassium 3.6 mmol/L (3.4-5.1); Sodium 137 mmol/L (137-145)
[2023-04-21 08:00] VITALS: BP 151/58; PULSE 68; RESP 16; TEMP 36.3; O2SAT 96
[2023-04-21] MEDS: AMLODIPINE 5 MG TABLET 10 MG PO (08:54)
[2023-04-21] MEDS: AMIODARONE 200 MG TABLET 100 MG PO (08:55)
[2023-04-21 08:57] VITALS: BP 151/58; PULSE 68
[2023-04-21] MEDS: carvediloL 12.5 MG TABLET 25 MG PO (08:57)
[2023-04-21] MEDS: LOSARTAN 50 MG TABLET PO (08:57)
[2023-04-21] MEDS: predniSONE 20 MG TABLET 40 MG PO (08:59)
[2023-04-21] MEDS: TAMSULOSIN 0.4 MG CAPSULE PO (08:59)
[2023-04-21] MEDS: FUROSEMIDE 40 MG/4 ML VIAL IV (09:06)
--- NOTE | 2023-04-21 09:10 | PT.IPTN ---
Current Diagnoses Heart failure, unspecified (04/19/23) Physical Therapy Treatment Note M2 PT-IP Current Condition Start: 04/20/23 13:53 Freq: NEEDED Status: Active Protocol: Document 04/20/23 15:21 KJ (Rec: 04/20/23 15:48 KJ [id number]) Physical Therapy Current Condition Current Condition Evaluation Date 04/20/23 Treatment Diagnosis Impaired mobility, LE weakness Onset Date unknown M3 PT-IP Subjective Start: 04/20/23 13:53 Freq: NEEDED Status: Active Protocol: Document 04/21/23 10:07 TS (Rec: 04/21/23 10:33 TS [id number]) Subjective Physical Therapy Visit Type Type Treatment Note Visit Start Time 09:10 Visit Stop Time 09:48 Total Visit Minutes 38 Number of DENTAL SECRETARY Visits 1 Physical Therapy Visit Comments Patient Comments Pt found resting in bed, reports feeling better this morning, details long history of previous hip repplacement and falls, see PT note. Pt is agreeable to PT. Therapy Pain Assessment Pain When Pain Assessed At Rest Pain Present Pain Present Pain Reported M4 PT-IP Mobility and Gait Start: 04/20/23 13:53 Freq: NEEDED Status: Active Protocol: Document 04/21/23 10:07 TS (Rec: 04/21/23 10:33 TS [id number]) PT-Bed Mobility Assessment Rolling Type of Rolling Roll to Right Level of Assist Standby Assistance Supine to Sit Supine to Sit Standby Assistance Sit to Supine Sit to Supine Standby Assistance Scooting Scooting to Edge of Bed Standby Assistance Scooting Up and Down in Bed Standby Assistance PT-Transfer Assessment Sit to and From Stand Sit to and from Stand Standby Assistance Equipment Transfer Assistive Device Gait Belt,Front Wheeled Walker Orthotic/Prosthetic Devices or Brace: No Comments Mobility Comments Supine to sit from flat bed SBA with use of BUE support, pt lifted LLE to EOB without UE support. Sit to stand from bed SBA with FWW, pt has fair standing balance with no retroleaning. He ambulated ~ 175' SBA with step to gait with TTWB on LLE due to leg length discrepancy, reports some fatigue. He performed steps x2 with crutch SBA and x1 with B handrails SBA. Pt was left back in bed all needs met. Gait Assessment Gait Gait Assistance Required: Standby Assistance Distance (Feet) 175 Assistive Devices Assistive Device Gait Belt,Front Wheeled Walker Orthotic/Prosthetic Devices or Brace: No Factors Limiting Gait Function Factors Limiting Gait Function Decreased Activity Tolerance, Decreased Strength,Limited Range of Motion,Poor Balance Comments Gait Comments See mobility comments Stair Climbing Assessment Evaluation Level of Assist On Stairs Standby Assistance Devices Stair Climbing Assistive Devices Axillary Crutches,Left Railing ,Right Railing Technique/Endurance Stair Climbing Direction Ascend and Descend Stair Climbing Technique Step to Step Number of Steps Climbed 3 Comments Stair Climbing Comments x1 B handrails SBA, x2 with crutches SBA. Pt is more stable performing steps with B handrails than with crutches. Landlord removed handrails from apt in the past, recommended pt have handrails for step into house. PT-Balance Assessment Sitting Balance and Reactions Static Sitting Balance Ability Good Dynamic Sitting Balance Ability Good Standing Balance and Reactions Static Standing Balance Ability Fair Dynamic Standing Balance Ability Fair Device Used FWW M5 PT-IP Objective Assessments Start: 04/20/23 13:53 Freq: NEEDED Status: Active Protocol: Document 04/20/23 15:21 KJ (Rec: 04/20/23 15:48 KJ [id number]) Orientation Orientation/Cognition Level of Alertness Alert Orientation Name,Age,Birthday,Month,Date, Year,Day of Week,Place, Situation Language Function Ability No Deficits Noted Safety Awareness Decreased Safety Awareness Memory Description No Deficits Noted Comments Medical history is complicated , pt appears to confuse history of medical problems Gross Range of Motion Lower Extremity ROM Assessment Bilaterally Impaired Impairments Decreased passive knee ext bilaterally. L knee -23 degrees, R knee -14 degrees in sitting L hip AROM decreased Strength Lower Extremity Strength Hip Weakness in L hip flex and abduction Knee WFL within available ROM Ankle WFL M6 PT-IP Treatment Start: 04/20/23 13:53 Freq: NEEDED Status: Active Protocol: Document 04/21/23 10:07 TS (Rec: 04/21/23 10:33 TS [id number]) Physical Therapy Treatment Education Education Provided Safety M7 PT-IP Assessment and Plan Start: 04/20/23 13:53 Freq: NEEDED Status: Active Protocol: Document 04/21/23 10:07 TS (Rec: 04/21/23 10:33 TS [id number]) PT Summary Assessment and Plan Potential Rehabilitation Potential Good Summary Impairments ROM,Strength,Balance,Bed Mobility,Transfers,Gait Progress Towards Goals Progressing Toward Goals Assessment Summary Josh is making progress with his mobility this session. He continues to be SBA for all bed mobility from a flat bed with BUE support. He performed sit to stand SBA with FWW. He progressed his gait to ~175' SBA with FWW, is unsteady due to leg length discrepancy on LLE, he tends to walk TTWB on LLE, he has no buckling or LOB . He performed steps x1 with B handrails and x2 with crutches SBA. He is more steady with handrails than crutches, he does not currently have handrails due to landlord removing them. Recommended to pt handrails be put back in and someone to assist him getting into house when d/c. Pt remains a falls risk. PT is recommending return home with assist and HHPT at this time. Goals Bed Mobility Goal Independent Transfer Goal Independent Gait Goal Independent,Front Wheel Walker Gait Distance 50' Days to Meet Goals 5 Frequency of Treatment Frequency Of Treatment Once a Day Treatment Plan Physical Therapy Treatment Plan Transfer Training,Gait Training,Therapeutic Exercise, Balance Retraining Recommendations To Nursing Amount of Assist Needed Standby Assistance Discharge Recommendations PT Discharge Recommendations Home with Assistance,Home Health Other Discharge Recommendations Pt reports having FWW. Equipment Needed for Home Before Shower bench Discharge Transportation Needs at Discharge Private Vehicle
--- NOTE | 2023-04-21 09:25 | CM.DPC ---
Addendum entered by CARMINE Jon 04/21/23 12:05: ADD: Per APPLICATION PROGRAMMER ANALYST, recommending d/c to home with HH as pt has improved. [facility] [place] kindly faxed [facility] the completed F2F and HH orders and no d/c summary yet available. Discharge orders placed. SW met bedside with pt again and provide the [facility] brochure and he confirms he has used them before and agreeable. Pt calling friends and family for transport home but will let SW know if he cannot find a ride as he states he also has Medicaid Transportation benefits. BF Original Note: DCP SNF vs HH Per PT eval yesterday PM, feel pt would benefit from short stay SNF rehab before safe return home alone but might progress enough for home with HH pending strength/balance. SW met bedside with pt and explained role again and discussed SNF vs HH and pt states he is aware that his left leg does not really have any strength and he needs assist with sit to stand but feels once he is up he can mobilize but if SNF needed would be agreeable. SW has a hx of a few year ago going to [facility] and two years ago [facility]. SW reviewed the SNF Choice list based on those contracted with his [facility] and preference is [facility] if SNF and agreeable with a referral. Pt also states that if he improves for safe d/c home then he is agreeable with HH and reviewed HH Choice list and no preference. SW made initial referral to [facility] and they will review and also faxed new referral to [facility] based on [facility] Calendar pending pt's progress and d/c needs. If SNF, [facility] needed. If HH, F2F needed. APPLICATION PROGRAMMER ANALYST arrived bedside and will work with pt this morning towards help in determining pt's d/c needs. Plan: SW to follow closely for PT this morning to determine SNF vs HH and [facility] and [facility] reviewing. CARMINE Jon
--- NOTE | 2023-04-21 10:43 | OT.IP.EVAL ---
Addendum entered and electronically signed by Hue Gruber OT 04/21/23 12:02: rah Original Note: Current Diagnoses Heart failure, unspecified (04/19/23) Past Medical History (Last Reviewed 04/19/23 @ 10:20 by Yelitza Nix DO) Aortic regurgitation BPH (benign prostatic hyperplasia) Cyst of left kidney Dilated cardiomyopathy (07/28/17) Elevated PSA Encephalopathy (Unknown) Essential hypertension (07/20/02) Gastric ulcer (Unknown) HFrEF (heart failure with reduced ejection fraction) History of UTI Hyperlipidemia (10/13/11) Iron deficiency anemia due to dietary causes Neoplasm of uncertain behavior of bladder Neurogenic bladder (Unknown) Neuropathy (Unknown) Osteoarthritis (Unknown) Osteopenia (04/29/16) Paroxysmal atrial fibrillation 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) Typical atrial flutter Surgical History (Last Reviewed 04/19/23 @ 10:20 by Yelitza Nix DO) History of bilateral knee replacement (Unknown) History of colon resection History of left hip replacement (Unknown) Hx of shoulder surgery (Unknown) Status post cardiac catheterization (~2020) Occupational Therapy Inpatient Evaluation/Re-Eval M1 PT/OT-IP Prior Functional Status Start: 04/21/23 11:40 Freq: NEEDED Status: Active Protocol: Document 04/21/23 10:43 [facility] (Rec: 04/21/23 11:58 [facility] [id number]) Medical Review Prior Functional Status Medical History Reviewed Yes Communication Alert and oriented x 4 Mobility and Gait Pt reports mobility by furniture surfing at home, was able to ambulate w/axillary crutches outside of the home and by using shopping cart for support while shopping, however recently has had several falls and increased pain in the LLE, which has limited his mobility significantly. Activities of Daily Living and IADL's Pt reports previously being indep in ADLs, meal preparation, driving, shopping , however recently has been getting more help from friends /family especially for IADl and shopping needs. He has not been able to go shopping recently. Social History Household Members none Living Arrangements Apartment/Condo Number of Stairs To Enter/Railing? 1 w/out railing Home Environment Standard Height Toilet,Tub/ Shower Home Equipment Crutches Employment Status Retired Additional Social History Comment Pt states he places blankets on the edge of the tub and then sits on them to bathe. Pt admits recently slipping off the edge of the tub while bathing. Pt states he tried a shower chair at one point but it wouldn't fit into the tub due to a small/odd shape. M2 OT-IP Current Condition Start: 04/21/23 11:40 Freq: Status: Active Protocol: Document 04/21/23 10:43 [facility] (Rec: 04/21/23 11:58 [facility] [id number]) Occupational Therapy Current Condition Current Condition Evaluation Date 04/21/23 Treatment Diagnosis CHF exacerbation Diagnosis Onset Date 04/19/23 M3 OT- IP Subjective and Pain Start: 04/21/23 11:40 Freq: Status: Active Protocol: Document 04/21/23 10:43 [facility] (Rec: 04/21/23 11:58 [facility] [id number]) OT- Subjective Occupational Therapy Visit Type Type Initial Evaluation Visit Start Time 10:43 Visit Stop Time 11:22 Total Visit Minutes 39 Occupational Therapy Visit Comments Patient Comments Pt agreed to get up to work with OT. Patient/Caregiver Goals TO go home. OT Pain Assessment Pain When Pain Assessed At Rest Pain Present Pain Present Denied Pain M4 OT- IP ADL's Start: 04/21/23 11:40 Freq: Status: Active Protocol: Document 04/21/23 10:43 [facility] (Rec: 04/21/23 11:58 [facility] [id number]) OT UCZ-Zgwv-Nfwsoad General Evaluation Self-Feeding Ability Independent OT ADL-Grooming General Evaluation Grooming Ability Independent OT ADL-Oral Care General Eval Oral Care Ability Independent OT ADL-Dressing General Eval Lower Body Dressing Ability Moderate Assistance Comments OT Dressing Comments Due to back pain , pt will benefit from using his crop specialist and get a sock aid to assist at this time. OT ADL-Toileting General Evaluation Toileting Ability Total Assistance Comments OT Toileting Comments Garcia in place. OT ADL-Bathing Comments OT Bathing Comments Pt states just sits on the edge of the tub with towels on it. Pt would greatly benefit from a tub bench to use at home for safety, otherwise have someone to provide at least supervision. M5 OT- IP IADL's Start: 04/21/23 11:40 Freq: Status: Active Protocol: Document 04/21/23 10:43 [facility] (Rec: 04/21/23 11:58 [facility] [id number]) OT-Instrumental Activities of Daily Living Deficits IADL Deficits Identified Deficits Home Safety Awareness Awareness of Need for Assistance at Home Good Awareness Ability to Problem Solve Emergency Able to Problem Solve Situations Medication Management Medication Management Comments Pt uses a pill box. Money Management Money Management Comments Pt states just pays by phone for his bills except for his rent check. Meal Preparation Meal Preparation Comments Pt gets Meals on Wheels. Director Treasurer Director Treasurer Caregiver Provides Assist Driving Driving Comments Concerns for safety. M6 OT- IP Functional Cognition Start: 04/21/23 11:40 Freq: Status: Active Protocol: Document 04/21/23 10:43 [facility] (Rec: 04/21/23 11:58 [facility] [id number]) Cognitive Factors Limiting Selfcare Function Cognitive Ability Level of Alertness Alert Patient Orientation Name,Age,Birthday,Month,Date, Year,Day of Week,Place, Situation Attention Span Ability Capable of Focused Attention, Capable of Sustained Attention Ability to Follow Commands Able to Follow Multi-Step Commands Memory Description Short Term Impaired Cognitive Tests SLUMS Pt scored 21/30 on the SLUMS which implies mild neurocongitive deficits. Pt able to recall 9 animals in one minute, able to recall 3/5 words after time passed, and able to answer 3/4 questions right after paragraph read. Cognitive Comments Cognitive Assessment Comments Pt needing increased time for problem solving for SLUMS and main had issues with short term memory items. OT- Vision and Hearing OT- Hearing Assessment OT- Hearing Assessment WFL OT- Vision Assessment Visual Acuity WFL Visual Attentiveness WFL Occular Pursuits WFL Visual Convergence WFL Visual [place] WFL M7 OT- IP Mobility and Balance Start: 04/21/23 11:40 Freq: Status: Active Protocol: Document 04/21/23 10:43 [facility] (Rec: 04/21/23 11:58 [facility] [id number]) OT- Bed Mobility Assessment Supine to Sit Supine to Sit Assist Independent Sit to Supine Sit to Supine Assist Independent Scooting Scooting to Edge of Bed Independent Scooting Up and Down in Bed Independent OT-Transfer Assessment Sit to and From Stand Sit to and from Stand Standby Assistance Transfers Transfer Ability Standby Assistance Technique Transfer Destination Bed Devices Transfer Assistive Devices Gait Belt,Front Wheeled Walker ,4 Wheeled Walker Comments Mobility Comments Pt close SBA with 4ww and distance SBA with FWW. Pt is much safer to use the FWW at this time. OT- Balance Assessment Sitting Balance and Reactions Static Sitting Balance Ability Normal Dynamic Sitting Balance Ability Good Standing Balance and Reactions Static Standing Balance Ability Good Dynamic Standing Balance Ability Fair M8 OT- IP Objective Assessments Start: 04/21/23 11:40 Freq: Status: Active Protocol: Document 04/21/23 10:43 [facility] (Rec: 04/21/23 11:58 [facility] [id number]) OT Gross Range of Motion Upper Extremity Range of Motion Assessment Within Functional Limits OT Strength Upper Extremity Strength Assessment Within Functional Limits OT- Coordination Assessment Upper Extremity Finger to Nose Test Within Functional Limits OT-Muscle Tone Assessment Muscle Tone WNL Yes OT Sensation Assessment Comments Summary Comments Intact for light touch. M9 OT- IP Assessment and Plan Start: 04/21/23 11:40 Freq: Status: Active Protocol: Document 04/21/23 10:43 [facility] (Rec: 04/21/23 11:58 [facility] [id number]) OT Summary Assessment and Plan Potential Rehabilitation Potential Good Analytic Complexity at Evaluation Moderate Summary OT Impairments Pain,Balance,Functional Cognition,Functional Mobility, Dressing,Toileting,Bathing, Toilet Transfers,Shower Transfers,Activity Tolerance Progress Towards Goals Progressing Toward Goals Assessment Summary Pt MOD complexity and main barriers are back pain while doing LB dressing needs and suggested pt to use his sock aid and crop specialist again. Pt states his LB equipment is buried in the storage unit which has two steps and no rails to go down and states his friends/family will be able to assist him to find items down there and also to assist with his laundry. Pt would greatly benefit from home health to look at overall environmental safety and possible equipment needs. Pt currently sits on the edge of the tub with a towel versus would benefit from a tub bench for safety. Pt scored 21/30 on the SLUMS which implies mild neurocognitive deficits, mainly trouble with his short term memory. Pt to go home with assist and home health when medically stable. Goals Grooming Goal Independent Dressing Goal Independent Toileting Goal Independent Bathing Goal Independent Toilet Transfer Goal Independent Shower Transfer Goal Independent Days to Meet Goals 7 Frequency of Treatment Frequency Of Treatment Once a Day Treatment Plan OT Treatment Plan ADL Training,Functional Cognition Training,Functional Mobility,Patient/Family Education,Discharge Planning Discharge Recommendations OT Discharge Recommendations Home with Assistance,Home Health Home Equipment Needs tub bench, sock aid Transportation Needs at Discharge Private Vehicle
[2023-04-21 12:00] VITALS: BP 158/56; PULSE 72; RESP 16; TEMP 36.2; O2SAT 95
--- NOTE | 2023-04-21 15:17 | PC.NURSE ---
Discharge Note Patient A&O, VSS, RA, no complaints of pain/discomfort. Discharge packet reviewed with patient, all questions/concerns addressed. PIV/TELE discontinued. Garcia discontinued prior to discharge due to patient self catherization at home. Patient able to dress self and transfer to wheelchair with minimal assist. Patient taken down via wheelchair to POV.
--- NOTE | 2023-04-22 11:19 | CM.DPC ---
DCP HH Pt discharged last night 04/21/23 and call left after SW shift that unfortunately [facility] cannot accept his insurance. [facility] also not contracted. [facility] Ray kindly [facility] and [facility] confirm they can accept and F2F scanned and HH orders completed. BF
--- NOTE | 2023-04-22 19:54 | P.DS_ITS ---
History of Present Illness History of Present Illness Date Patient Seen: 04/19/23 Time Patient Seen: 18:44 Chief complaint: BP is high/problems breathing when laying down Narrative: Per admitting physician: Josh Mcguire is a 72yo M with PMH of paroxysmal atrial fibrillation on warfarin, dilated cardiomyopathy, mod-severe AR, hypertension, hyperlipidemia, neurogenic bladder with daily self-cath, BPH, and AAA who presents with worsening dyspnea. He states over the past week he has become progressively SOB with exertion. No orthopnea. No LE edema. He also noticed wheezes and a slight cough. Denies sick contacts. In the ED found to have cardiomegaly, pulm edema on CXR and elevated BNP to 12k. He denies any COPD history, but was exposed to second-hand smoke for several years by both his parents who smoked in the house. UA showed pyuria so given rocephin. He denies CP, abd pain, diarrhea, hematuria or headache. Discharge Providers Provider Date of admission: 04/19/23 15:42 Discharge Date: 04/21/23 Primary care physician: Jose L Yadav MD Consults: 04/20/23 09:00 Consult to Physical Therapy Evaluate & Treat Comment: weakness, pt uses crutches at home Physician Instructions: Evaluate and Treat 04/21/23 10:02 Consult to Occupational Therapy Evaluate & Treat Comment: Physician Instructions: Evaluate and treat 04/21/23 10:09 Consult to Home Health Routine Comment: CHF, poss COPD and UTI Reason For Exam: Set up HH RN/PT/OT for discharge to home Discharge provider: Drew Hogan MD Summary Hospital Course Discharge Diagnosis: 1. Acute on CHFrEF 2. Hypertension 3. UTI 4. Afib 5. Supratherapeutic INR 6. BPH 7. Hyperlipidemia Hospital Course: Mr. Mcguire was admitted with respiratory distress. He was found to have an elevated BNP and fluid in his lungs consistent with heart failure. He had an ECHO that noted EF 45-50%. He was diuresed 8L net negative. His respiratory status improved. He was quite weak and seen by PT who recommended home health. He was found to have UTI and discharged on antibiotics for this. He had a supratherapeutic INR and his coumadin was held here. He was encouraged to restart his coumadin two days after discharged and follow up within a week for repeat INR. 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) Aortic regurgitation BPH (benign prostatic hyperplasia) Cyst of left kidney Neoplasm of uncertain behavior of bladder HFrEF (heart failure with reduced ejection fraction) Elevated PSA Iron deficiency anemia due to dietary causes Neurogenic bladder (Unknown) Neuropathy (Unknown) Encephalopathy (Unknown) Gastric ulcer (Unknown) Osteoarthritis (Unknown) Dilated cardiomyopathy (07/28/17) Osteopenia (04/29/16) Hyperlipidemia (10/13/11) Essential hypertension (07/20/02) Surgical History Status post cardiac catheterization (~2020) History of colon resection Hx of shoulder surgery (Unknown) History of left hip replacement (Unknown) History of bilateral knee replacement (Unknown) Family History Mother Cancer Medical history unknown Father Medical history unknown Social History marital status: unknown household members: none occupational status: previously employed Smoking Status: Never smoker second hand exposure: No alcohol intake: never substance use type: does not use Discharge Plan Discharge Plan Patient Disposition: Home Health Service Provider Discharge Comment: Mr. Mcguire came to the hospital with breathing issues. He was retaining fluid. He improved with lasix and will be discharged on this. He was started on antibiotics for a UTI and should complete the antibiotics. His INR was high in the hospital. He should not take his coumadin on Thursday, not take it Thursday, and restart on . He should follow up with his PCP in 3-5 days and recheck his INR. Discharge orders & Medications Prescriptions: New amoxicillin-pot clavulanate 875-125 mg tablet 1 tab PO BID Qty: 6 0RF furosemide [Lasix] 20 mg tablet 20 mg PO DAILY Qty: 30 0RF Continued cholecalciferol (vitamin D3) [Vitamin D3] 2,000 unit capsule 4,000 unit PO DAILY Qty: 0 atorvastatin [Lipitor] 20 mg tablet 20 mg PO BEDTIME Qty: 90 3RF warfarin 3 mg tablet See Rx Instructions .ROUTE .COMPLEX Qty: 76 2RF Dose Instruction: TAKE 1.5MG THURSDAY AND THURSDAY. TAKE 3MG ALL OTHER DAYS, OR DIRECTED AT BEDTIME. Rx Instructions: TAKE 1.5MG THURSDAY AND THURSDAY. TAKE 3MG ALL OTHER DAYS, OR DIRECTED AT BEDTIME. tamsulosin [Flomax] 0.4 mg capsule 0.4 mg PO DAILY Qty: 30 0RF ferrous sulfate 325 mg (65 mg iron) tablet 325 mg PO MOTUWETHFR Patient Comments: weekdays carvedilol 12.5 mg tablet 25 mg PO BID losartan 50 mg tablet 50 mg PO BID Hold Instructions: hypotension acetaminophen 500 mg capsule 1,000 mg PO Q6H PRN (Reason: pain) ascorbate calcium (vitamin C) 500 mg Capsule 1,000 mg PO DAILY amiodarone 200 mg tablet 100 mg PO DAILY Rx Instructions: Start after 1 week of 400 mg twice daily Follow up/Referrals: Jose L Yadav MD [Primary Care Provider] - 04/27/23 10:30 am (Appt:04/27 @ 10:[address] Dash please arrive 15 min prior to scheduled appointment time -chf exacerbation, uti, high inr) Diet/Activity/Treatments Diet: Regular and Low-sodium Visit Report/Discharge Packet Instructions: DI for Heart Failure Stand Alone Forms: Patient Portal/API, Stroke Signs & Symptoms Discharge Data Primary Care Provider: Jose L Yadav V Quality VTE Deep Vein Thrombosis/Pulmonary Embolism Present on Admission: No
== END 2023-04-21 15:15 | disposition home health service (06) | DRG 291 ==
LOC: ED 12:26 → AC 04-20 08:30
PROVIDERS: Admitting Provider Student in an Organized Health Care Education/Training Program; Emergency Provider Emergency Medicine; Family Provider Specialist; PCP Internal Medicine; Referring Provider Emergency Medicine; Visit Provider Student in an Organized Health Care Education/Training Program
DX: I11.0 Hypertensive heart disease with heart failure (principal); I50.23 Acute on chronic systolic (congestive) heart failure; N39.0 Urinary tract infection, site not specified; I16.0 Hypertensive urgency; N31.9 Neuromuscular dysfunction of bladder, unspecified; I48.0 Paroxysmal atrial fibrillation; R79.1 Abnormal coagulation profile; N40.0 Benign prostatic hyperplasia without lower urinary tract symptoms; E78.5 Hyperlipidemia, unspecified; Z77.22 Contact with and (suspected) exposure to environmental tobacco smoke (acute) (chronic); Z79.01 Long term (current) use of anticoagulants
CPT/HCPCS: 36415; 71045; 80048; 80053; 81003; 81015; 83605; 83735; 83880; 84145; 84484; 85007; 85025; 85610; 87077; 87086; 87186; 93005; 93010; 93306; 96374; 97116; 97162; 97166; 97530; 99284; J0696; J1940

== ENCOUNTER → 2023-05-07 08:08 | Outpatient (CLI) | payer MEDICARE, MEDICAID, SELFPAY ==
[2023-04-19 15:47] VITALS: BMI 25.8
== END ==
PROVIDERS: Family Provider Specialist; PCP Internal Medicine; Visit Provider Specialist
DX: Z87.440 Personal history of urinary (tract) infections (principal)
CPT/HCPCS: 87077; 87086; 87186

== ENCOUNTER → 2023-05-15 11:17 | Outpatient (CLI) | payer MEDICARE, MEDICAID, SELFPAY ==
[2023-04-19 15:47] VITALS: BMI 25.8
[2023-05-15 15:19] LABS: INR 6.5 (0.9-1.3); Prothrombin Time 75.9 SECONDS (10.1-12.7)
== END ==
PROVIDERS: Internal Medicine; Family Provider Specialist; PCP Internal Medicine; Referring Provider Internal Medicine; Visit Provider Internal Medicine
DX: I82.409 Acute embolism and thrombosis of unspecified deep veins of unspecified lower extremity (principal)
CPT/HCPCS: 36415; 85610

== ENCOUNTER 2024-04-11 10:20 | Inpatient (IN) | payer MEDICARE, MEDICAID, SELFPAY ==
[2023-04-19 15:47] VITALS: BMI 25.8
[2024-04-11] VITALS (15 sets, daily range): BP systolic 122–189; BP diastolic 45–77; PULSE 65–75; RESP 16–18; TEMP 36.8–37.6; O2SAT 95–99; BMI 22.3
--- NOTE | 2024-04-11 10:32 | ED_ITS ---
HPI - Extremity Problem General Chief complaint: Fall Stated complaint: fall, L hip injury Time Seen by Provider: 04/11/24 10:31 History of Present Illness HPI Narrative: Patient is a 73-year-old male history of paroxysmal AFib on warfarin hypertension comes into the ED from home for evaluation of left hip pain and drainage slash wound to his buttock region. He states that today he was getting out of the shower and slipped and landed on his left hip. States that he was feeling a little weaker than normal. Denies any head strike. He states that he has not checked his INR and ?1 month due to ?issues getting into the doctor's office. He states he was able to stand bear weight but unable to walk due to significant weakness. He also states that was a significant amount of ?drainage towards his buttock region, he states that he noticed that 2 days ago there was a blister, he states that he thinks it ?popped today when he fell. He denies any other symptoms at this time. On exam neurovascularly intact bilateral lower extremities. States that he does live at home alone. Has no help taking care of himself. He states that he is normally stand walk ambulate. Related Data Home Medications Medication Instructions Recorded Confirmed cholecalciferol (vitamin D3) 50 4,000 unit PO DAILY #0 caps 10/12/18 10/29/23 mcg (2,000 unit) capsule (Vitamin D3) ferrous sulfate 325 mg (65 mg 325 mg PO MOTUWETHFR 12/21/18 10/29/23 iron) tablet acetaminophen 500 mg capsule 1,000 mg PO Q6H PRN pain 02/23/19 10/29/23 ascorbate calcium (vitamin C) 500 1,000 mg PO DAILY 12/18/20 10/29/23 mg capsule losartan 50 mg tablet 50 mg PO BID 07/26/22 10/29/23 amiodarone 200 mg tablet 100 mg PO DAILY 04/19/23 10/29/23 carvedilol 25 mg tablet 25 mg PO BID 10/29/23 10/29/23 Previous Rx's Medication Instructions Recorded atorvastatin 20 mg tablet (Lipitor) 20 mg PO BEDTIME #90 tabs 01/05/23 warfarin 3 mg tablet See Rx Instructions .Route 05/25/23 .COMPLEX #76 tabs amlodipine 2.5 mg tablet 2.5 mg PO BID #180 tabs 03/05/24 warfarin 2 mg tablet 2 mg PO DAILY #90 tabs 09/10/23 furosemide 20 mg tablet (Lasix) 20 mg PO DAILY #30 tabs 11/12/23 tamsulosin 0.4 mg capsule (Flomax) 0.4 mg PO DAILY #30 caps 02/01/24 Allergies Allergy/AdvReac Type Severity Reaction Status Date / Time ciprofloxacin Allergy Severe BREATHING Verified 10/29/23 13:03 PROBLEMS, CHILLS, SHAKES alendronate sodium AdvReac Severe GI bleed Verified 10/29/23 13:03 [ALENDRONATE SODIUM] cephalexin AdvReac Mild Headache Verified 10/29/23 13:03 morphine AdvReac Mild ABD PAIN Verified 10/29/23 13:03 Review of Systems Review of Systems Narrative: General: Denies fever, chills, weight loss HEENT: Denies headache, eye drainage, eye irritation, head trauma, sore throat, voice change Cardiovascular: Denies any chest pain, palpitations, shortness of breath, tachycardia Respiratory: Denies any shortness of breath, cough, wheeze, stridor GI/: Denies any abdominal pain, nausea, vomiting, diarrhea, bright red blood per rectum, melanotic stools, urinary frequency, urinary retention, dysuria, hematuria MSK: Pain to the left hip Skin: Ulcer to the buttock region Neuro: Denies any headache, lightheadedness, dizziness, fainting, weakness Psych: Denies SI/HI Patient History Medical History (Updated 04/11/24 @ 12:37 by Lonnie Gage DO) Mixed hyperlipidemia Essential hypertension Systolic CHF, chronic Thrombophilia History of UTI Typical atrial flutter Paroxysmal atrial fibrillation 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) Aortic regurgitation BPH (benign prostatic hyperplasia) Cyst of left kidney Neoplasm of uncertain behavior of bladder Elevated PSA Iron deficiency anemia due to dietary causes Neurogenic bladder (Unknown) Neuropathy (Unknown) Encephalopathy (Unknown) Gastric ulcer (Unknown) Osteoarthritis (Unknown) Osteopenia (04/29/16) Surgical History Status post cardiac catheterization (~2020) History of colon resection Hx of shoulder surgery (Unknown) History of left hip replacement (Unknown) History of bilateral knee replacement (Unknown) Family History Mother Cancer Medical history unknown Father Medical history unknown Social History marital status: unknown household members: none occupational status: previously employed Smoking Status: Never smoker second hand exposure: No alcohol intake: never substance use type: does not use Smoking Status: Never smoker alcohol intake frequency: other Substance Use Type: does not use Exam Narrative Exam Narrative: General: Cooperative, comfortable, well-developed, not in acute distress HEENT: Normocephalic, atraumatic, PERRLA, normal sclera, eyelids normal, Neck: Active full range of motion, atraumatic Chest: Normal to inspection, negative crepitus, no overlying erythema ecchymosis Respiratory: Normal respiratory effort, not in acute respiratory distress, clear to auscultation bilaterally negative cough, wheeze, tachypnea, rhonchi, rales Cardiology: Regular rate rhythm negative gallop, murmur, rubs GI/: Normal to inspection, soft, nonrigid, no tenderness to palpation, exam deferred MSK: Full range of active range of motion of all 4 extremities, atraumatic Skin: Large stage 2-3 ulcer to the buttock region, no overlying erythema, no crepitus noted Neuro: Alert awake oriented x3, moves all 4 extremities spontaneously, cranial nerves intact, able to answer all questions appropriately follows commands appropriately Psych: Cooperative, negative suicidal or homicidal ideations Initial Vital Signs Initial Vital Signs: Vital Signs Temperature 98.3 F 04/11/24 10:25 Pulse Rate 75 04/11/24 10:25 Respiratory Rate 16 04/11/24 10:25 Blood Pressure 189/77 H 04/11/24 10:25 Pulse Oximetry 99 04/11/24 10:25 Oxygen Delivery Method Room Air 04/11/24 10:25 Course Orders Ordered: ED Orders 04/11/24 10:35 Complete Blood Count AUTO DIFF Stat Comprehensive Metabolic Panel Stat Lactate (Lactic Acid) Stat PTT Partial Thromboplastin Dino Stat Prothrombin Time INR Stat Troponin & CK Cardiac Panel Stat 04/11/24 10:39 CT abdomen pelvis w con Stat 04/11/24 10:40 EKG-12 Lead Stat 04/11/24 10:42 Consult to [facility] - Outside Maintenance 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 Stat 04/11/24 10:58 Blood Culture Stat 04/11/24 11:11 CT head/brain wo con Stat 04/11/24 11:45 Urinalysis and Microscopic Stat 04/11/24 12:16 MR pelvis wo/w con Stat Vancomycin HCl (Vancomycin) 1,000 mg in 200 mls @ 200 mls/hr IV Q24H RICARDO Last Admin: 04/11/24 11:52 Dose: 200 mls/hr Documented By: SB Discontinued Medications Ceftriaxone Sodium 2,000 mg/ (Sodium Chloride) 100 mls @ 200 mls/hr IV NOW ONE Stop: 04/11/24 12:16 Vital Signs Vital signs: Vital Signs - 8 hr 04/11/24 10:25 Temperature 98.3 F Pulse Rate 75 Respiratory Rate 16 Blood Pressure 189/77 H Pulse Oximetry 99 Oxygen Delivery Method Room Air MDM - Extremity (Nontraumatic) Lab Data 04/11/24 10:35 04/11/24 10:35 Labs: Lab Results 04/11/24 04/11/24 Range/Units 10:35 11:45 WBC 14.6 H (4.5-11.0) X10^3/uL RBC 3.86 L (4.5-5.9) X10^6/uL Hgb 10.9 L (13.5-17.5) g/dL Hct 32.5 L (41-53) % MCV 84.3 (80-100) fL MCH 28.3 (26-34) PG MCHC 33.6 (30-36) % RDW 16.0 H (11.6-14.8) % Plt Count 359 (150-400) X10^3/uL Neut % (Auto) 85.7 H (50-75) % Lymph % (Auto) 5.0 L (25-40) % Graham % (Auto) 7.7 (3-14) % Eos % (Auto) 1.1 L (2-4) % Baso % (Auto) 0.5 (0-2) % Neut # (Auto) 06876 H (4199-1814) /uL Lymph # (Auto) 700 L (3563-5205) /uL Graham # (Auto) 1100 H (0-900) /uL Eos # (Auto) 200 (0-450) /uL Baso # (Auto) 100 (0-100) /uL PT 54.1 H (9.4-12.5) SECONDS INR 4.6 H* (0.9-1.3) APTT 60 H (25.1-36.5) SECONDS Sodium 138 (137-145) mmol/L Potassium 3.0 L (3.4-5.1) mmol/L Chloride 109 H (98-107) mmol/L Carbon Dioxide 19 L (22-32) mmol/L BUN 29 H (9-20) mg/dL Creatinine 1.25 (0.66-1.25) mg/dL Estimated GFR > 60 (>60) mL/min BUN/Creatinine Ratio 23.2 H (6-22) Glucose 96 (80-110) mg/dL Lactate 1.5 (0.7-2.1) mmol/L Calcium 9.2 (8.4-10.2) mg/dL Total Bilirubin 0.7 (0.2-1.3) mg/dL AST 22 (17-59) IU/L ALT 16 (<50) IU/L Alkaline Phosphatase 99 (38-126) U/L Total Creatine Kinase 212 H (55-170) U/L Troponin I 0.017 (0.01-0.034) ng/mL Total Protein 7.0 (6.3-8.2) g/dL Albumin 3.4 L (3.5-5.0) g/dL Globulin 3.6 (1.7-4.1) g/dL Albumin/Globulin Ratio 0.9 L (1.0-2.8) Urine Color Yellow Urine Appearance Cloudy Urine pH 6.0 (4.5-8.0) Ur Specific [place] 1.015 (1.000-1.035) Urine Protein 1+ H (Negative) Urine Glucose (UA) Negative (Negative) g/dL Urine Ketones Negative (NEGATIVE) Urine Occult Blood 3+ H (Negative) Urine Nitrate Negative (Negative) Urine Bilirubin Negative (NEGATIVE) Urine Urobilinogen 0.2 (0.2) E.U./dL Ur Leukocyte Esterase 2+ H (NEGATIVE) Imaging Data CT scan - head: Radiologist's Impression: PROCEDURE: CT HEAD/BRAIN WO CON INDICATIONS: Trauma TECHNIQUE: Noncontrast 4.5 mm thick angled axial sections acquired from the foramen magnum to the vertex, with coronal and sagittal reformats. For radiation dose reduction, the following was used: automated exposure control, adjustment of mA and/or kV according to patient size. COMPARISON: None. FINDINGS: Image quality: Diagnostic. CSF spaces: Basal cisterns are patent. No extra-axial fluid collections. The ventricles are symmetric in size and shape. Brain: No intracranial bleeds or masses. There is cerebral volume loss for age, with resultant ventricular and sulcal prominence. There are periventricular and deep white matter chronic small vessel ischemic changes. There is intracranial internal carotid artery atherosclerosis. Skull and face: Calvarium and visualized facial bones appear intact, without suspicious lesions. Sinuses: Moderate mucosal thickening can be seen within the ethmoid air cells and within the left sphenoid sinus, with high-density material. IMPRESSION: High-density material can be seen within the paranasal sinuses, which is attributed to blood. On these images, no displaced facial bone fracture can be seen. - If there is strong clinical concern for a facial bone fracture that is not seen on these images, please consider a dedicated maxillofacial CT for further evaluation. No acute intracranial hemorrhage is seen. No acute intracranial process is seen. ECG Data Attestation EKG: I personally reviewed and interpreted this ECG as follows: Interpretation: EKG interpreted ED physician sinuses 68 beats per minute, QTC 440, normal axis, nonspecific ST changes, no STEMI MDM Narrative Medical decision making narrative: Patient is a 73-year-old male history of paroxysmal AFib on warfarin presents for left hip pain after slip and fall out of the tub today as well as drainage to his buttock region states he noticed this only a few days ago states that he noticed a blister thinks it popped when he fell. He was able to stand bear weight. But is too weak to stand walk which is his baseline. He states he does live at home alone and has difficulty caring for himself. He states that he has been having issues getting to his doctor's appointment to check his INR. States that he has feeling a lot weaker than normal. 1219: CT scan showing large soft tissue skin defect over the sacral region no definitive bony sclerotic or lytic changes however osteo can not be fully excluded. Therefore will order MRI lumbar spine, patient treated with vanc and Rocephin for possible osteomyelitis. 1241: The patient's management plan was discussed Dr. Shaw, who agrees to admit the patient to their service and assumes care of this patient at this time. Full admission orders will be placed by the primary team. Discharge Plan Departure Patient Disposition: Admitted As Inpatient Clinical Impression: Sacral decubitus ulcer, Elevated INR, Cellulitis
--- NOTE | 2024-04-11 10:39 | DI.CT.S_ITS ---
PROCEDURE: CT ABDOMEN PELVIS W CON INDICATIONS: patient with ulcer to buttock region , fall to left hip TECHNIQUE: After the administration of intravenous contrast, axial sections acquired from the lung bases to the pubic symphysis. Coronal and sagittal reformats were performed. For radiation dose reduction, the following was used: automated exposure control, adjustment of mA and/or kV according to patient size. COMPARISON: [facility], CT, CT ABDOMEN PELVIS W CON, 11/01/2021, 13:48. CT, CT ABDOMEN PELVIS WO CON, 02/13/2022, 13:11. FINDINGS: Image quality: Diagnostic. Lower Chest: Small right-sided pleural effusion and trace left-sided pleural effusion. Tiny calcified nodule within the right lung base with associated calcified right hilar lymph nodes likely sequela of prior granulomatous disease. Cardiomegaly is noted. ABDOMEN: Liver: No solid mass. Gallbladder: No radiopaque gallstones or wall thickening. Biliary ducts: No biliary dilation. Pancreas: No ductal dilation. Spleen: Size is within normal limits. Adrenal Glands: No adrenal nodules. Kidneys and Ureters: Stable size of large left parapelvic cyst. No definite evidence of hydronephrosis. Small hypodense lesions scattered throughout both kidneys most likely cysts. Stomach and Bowel: The small and large bowel appear normal in caliber without evidence of bowel obstruction. Large amount of retained fecal material throughout the colon. Peritoneum: No abnormal intraperitoneal fluid. No free air. Ventral Wall: No significant ventral hernia. Abdominal Nodes: No retroperitoneal or mesenteric adenopathy by size criteria. Vessels: Aorta and inferior vena cava are normal in size. PELVIS: Pelvic Organs: Prostatomegaly. Bladder: Mild degree of diffuse bladder wall thickening with scattered foci of air within the urinary bladder likely related to prior manipulation. Pelvic Nodes: No enlarged lymph nodes. Borderline prominent right inguinal fossa lymph node. Miscellaneous: Large soft tissue skin defect overlying the sacrum compatible with known sacral decubitus ulcer. Bones: No aggressive osseous abnormality. Left hip replacement prosthesis is in place. Extensive degenerative changes throughout the thoracic and lumbar spine. No definite bony sclerotic or lytic changes involving the sacrum underlying the soft tissue ulcer. IMPRESSION: 1. Large soft tissue skin defect overlying the sacrum compatible with known sacral decubitus ulcer. No definite bony sclerotic or lytic changes involving the sacrum underlying the soft tissue ulcer, however, osteomyelitis cannot be fully excluded from the study. 2. Small right-sided pleural effusion and trace left pleural fluid seen in conjunction with cardiomegaly and possibly related to congestive heart failure. 3. No acute abnormality within the abdomen or pelvis. Dictated by: Daniel Cristina M.D. on 04/11/2024 at 11:58 Approved by: Daniel Cristina M.D. on 04/11/2024 at 12:11
--- NOTE | 2024-04-11 10:40 | EKG_ITS ---
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
[2024-04-11 10:53] LABS: Add Manual Diff / Slide Review NO; Basophils Absolute Auto 100 /uL (0-100); Basophils Percent Auto 0.5 % (0-2); Eosinophils Absolute Auto 200 /uL (0-450); Eosinophils Percent Auto 1.1 % (2-4); Hematocrit 32.5 % (41-53); Hemoglobin 10.9 g/dL (13.5-17.5); Lymphocytes Absolute Auto 700 /uL (1100-4500); Mean Corpuscular HGB Conc 33.6 % (30-36); Mean Corpuscular Hemoglobin 28.3 PG (26-34); Mean Corpuscular Volume 84.3 fL (80-100); Monocytes Absolute Auto 1100 /uL (0-900); Monocytes Percent Auto 7.7 % (3-14); Neutrophils Absolute Auto 12500 /uL (1500-7000); Neutrophils Percent Auto 85.7 % (50-75); Platelet Count 359 X10^3/uL (150-400); Red Blood Cell Count 3.86 X10^6/uL (4.5-5.9); White Blood Cell Count 14.6 X10^3/uL (4.5-11.0)
[2024-04-11 10:56] LABS: Lactate (Lactic Acid) 1.5 mmol/L (0.7-2.1)
[2024-04-11 10:57] LABS: Alanine Aminotransferase 16 IU/L (<50); Albumin 3.4 g/dL (3.5-5.0); Albumin Globulin Ratio 0.9 (1.0-2.8); Alkaline Phosphatase 99 U/L (38-126); Aspartate Aminotransferase 22 IU/L (17-59); BUN Creatinine Ratio 23.2 (6-22); Bilirubin Total 0.7 mg/dL (0.2-1.3); Blood Urea Nitrogen 29 mg/dL (9-20); Calcium 9.2 mg/dL (8.4-10.2); Carbon Dioxide 19 mmol/L (22-32); Chloride 109 mmol/L (98-107); Creatine Kinase 212 U/L (55-170); Estimated Glomerular Filt Rate > 60 mL/min (>60); Globulin 3.6 g/dL (1.7-4.1); Glucose 96 mg/dL (80-110); HEMOLYSIS < 15 (0-50); Sodium 138 mmol/L (137-145)
[2024-04-11 11:02] LABS: Prothrombin Time 54.1 SECONDS (9.4-12.5)
[2024-04-11 11:04] LABS: PTT Partial Thromboplastin Tim 60 SECONDS (25.1-36.5)
--- NOTE | 2024-04-11 11:05 | PC.NURSE ---
Patient reports requiring self caths anytime he needs to urinate r/t urinary retention issues. He last cathed self last night, no urinary output today. Bladder scan used and 240mls seen in bladder. Patient requesting catheter to collect urine sample. MD was updated on this and gave VO's to place urinary catheter.
[2024-04-11 11:09] LABS: INR 4.6 (0.9-1.3)
[2024-04-11 11:10] LABS: Troponin I 0.017 ng/mL (0.01-0.034)
--- NOTE | 2024-04-11 11:11 | DI.CT.S_ITS ---
PROCEDURE: CT HEAD/BRAIN WO CON INDICATIONS: Trauma TECHNIQUE: Noncontrast 4.5 mm thick angled axial sections acquired from the foramen magnum to the vertex, with coronal and sagittal reformats. For radiation dose reduction, the following was used: automated exposure control, adjustment of mA and/or kV according to patient size. COMPARISON: None. FINDINGS: Image quality: Diagnostic. CSF spaces: Basal cisterns are patent. No extra-axial fluid collections. The ventricles are symmetric in size and shape. Brain: No intracranial bleeds or masses. There is cerebral volume loss for age, with resultant ventricular and sulcal prominence. There are periventricular and deep white matter chronic small vessel ischemic changes. There is intracranial internal carotid artery atherosclerosis. Skull and face: Calvarium and visualized facial bones appear intact, without suspicious lesions. Sinuses: Moderate mucosal thickening can be seen within the ethmoid air cells and within the left sphenoid sinus, with high-density material. IMPRESSION: High-density material can be seen within the paranasal sinuses, which is attributed to blood. On these images, no displaced facial bone fracture can be seen. - If there is strong clinical concern for a facial bone fracture that is not seen on these images, please consider a dedicated maxillofacial CT for further evaluation. No acute intracranial hemorrhage is seen. No acute intracranial process is seen. Dictated by: Derrick Caraballo M.D. on 04/11/2024 at 10:43 Approved by: Derrick Caraballo M.D. on 04/11/2024 at 10:45
[2024-04-11] MEDS: VANCOMYCIN 1,000 MG/200 ML PIGGYBACK 200 MG IV (11:52)
--- NOTE | 2024-04-11 12:16 | DI.MRI.S_ITS ---
PROCEDURE: MR PELIS WO/W CON INDICATIONS: possible osteo in sacrum region TECHNIQUE: Noncontrast coronal T1 spin echo and STIR, sagittal T1 spin echo with fat saturation and STIR, axial T1 spin echo , STIR, and T2 fast spin echo with fat saturation. After the administration of contrast, axial/sagittal/coronal T1 spin echo with fat saturation through the bony pelvis. COMPARISON: [facility], CT, CT ABDOMEN PELVIS W CON, 04/11/2024, 11:09. FINDINGS: Image quality: Prominent metal artifact is seen related to the left hip arthroplasty including areas of signal void, signal pile-up, inhomogeneous fat suppression and geometric distortion. Diagnostic information is obtained. Bones: No definite abnormal intrinsic T1-weighted signal is seen in the lower sacrum or coccyx adjacent to the air for ulceration given limitations on multiple sequences related to inhomogeneous fat suppression and metal artifact. No acute osseous fracture or trabecular bone injury. No suspicious marrow replacing mass in the remainder of the pelvis. Degenerative changes are seen in the included spine Soft tissues: Skin ulceration is again seen overlying the lower sacrococcygeal region with subcutaneous edema and foci of subcutaneous gas as seen on the CT from earlier the same day. Nonspecific subcutaneous edema or soft tissue anasarca is seen throughout the lower back and buttock region. And there is mild nonspecific presacral edema. Mild edema is seen within the lower gluteus kate muscles, greater on the right than on the left. The bladder is decompressed by Garcia catheter. Prostate is enlarged. Prominent stool is seen in the included rectum and colon. No enhancing soft tissue mass. IMPRESSION: 1. Skin ulceration and subcutaneous gas overlying the lower sacrum and coccyx again seen as demonstrated on the CT from earlier the same day. No definite MR evidence of osteomyelitis. 2. Mild edema within the inferior medial gluteus kate muscles, greater on the right than on the left, suspicious for reactive edema or myositis. Mild diffuse subcutaneous edema is nonspecific. 3. Postsurgical changes from left hip arthroplasty with associated metal artifact that obscures surrounding structures. Approved by: Nikunj Topete M.D. on 04/11/2024 at 16:34
[2024-04-11 12:38] LABS: Bilirubin Urine UA NEGATIVE (NEGATIVE); Color Urine UA YELLOW; Glucose Urine UA NEGATIVE (Negative); Ketones Urine UA NEGATIVE (NEGATIVE); Leukocyte Esterase Urine UA 2+ (NEGATIVE); Nitrite Urine UA NEGATIVE (Negative); Occult Blood Urine UA 3+ (Negative); Protein Urine UA 1+ (Negative); Specific Gravity Urine UA 1.015 (1.000-1.035); Urobilinogen Urine UA 0.2 E.U./dL (0.2)
[2024-04-11 12:39] LABS: Appearance Urine UA Cloudy
[2024-04-11 12:49] LABS: Amorphous Sediment Urine 2+; Bacteria Urine Moderate (10-30); Culture Indicated Urine Specimen Cultured; RBC Urine 5-10/HPF (0-5/HPF); Squamous Epithelial Cell Urine 1-5 /HPF (0-5/HPF); Urine Volume 10mL (spun); WBC Urine 10-30/HPF (0-5/HPF)
--- NOTE | 2024-04-11 12:53 | DI.ECHO.S_ITS ---
[facility]+ [facility] : : [address] : : [place] : : [id number] : : Phone: [phone] Echocardiogram Report + + :Name: EULOGIO BENAVIDEZ Study Date: 04/12/2024 Height: 69 in : :[facility] ReadingLocation: Weight: 151 lb : : Gender: Male BSA: 1.8 m2 : :: 1950 Age: 73 yrs BP: 143/65 mmHg: :Reason For Study: WEAKNESS, PLEURAL EFFUSION : :Ordering Physician: LUIS, : :REED NAPIER Performed By: Ni Zuluaga : :Referring: REED SMITH : + + Interpretation Summary 1) Severely enlarged left ventricle with low normal systolic function (EF 50- 55%). 2) Normal right ventricular size and function. 3) The left atrium is severely dilated. 4) There is moderate-severe aortic regurgitation directed towards to anterior mitral leaflet. No obvious flow reversal in the abdominal aorta. 5) The aortic root is severely dilated at 4.8cm. 6) There is a small left-sided pleural effusion. 7) Compared to the Echo done 04/20/2023, no significant change. Procedure: A two-dimensional transthoracic echocardiogram with color flow and Doppler was performed. The study quality was technically adequate. Comparison is made with the echocardiogram of 04/20/2023. The patient was in sinus bradycardia with heart rates between 59-66 bpm during the exam. Left Ventricle: The left ventricle is severely dilated. The estimated left ventricular end diastolic volume is 302 ml. There is normal left ventricular wall thickness. The ejection fraction is estimated to be 50-55%. There are no focal wall motion abnormalities. Right Ventricle: The right ventricle is normal in size and function. Atria: The left atrium is severely dilated. Right atrial size is normal. There is no Doppler evidence for an interatrial shunt. Mitral Valve: The mitral valve leaflets appear mildly thickened, but open well. There is mild mitral regurgitation. Aortic Valve: The aortic valve is trileaflet. The aortic valve opens well. There is no aortic valve stenosis. There is moderate to severe aortic regurgitation. There is an eccentric jet of aortic insufficiency directed against the anterior mitral leaflet. Tricuspid Valve: The tricuspid valve is normal in structure and function. The right ventricular systolic pressure is estimated to be at least 41 mmHg based on an estimated right atrial pressure of 8 mm Hg. There is mild tricuspid regurgitation. Pulmonic Valve: The pulmonic valve is not well visualized. There is no pulmonic valvular regurgitation. Great Vessels: The aortic root is severely dilated. The ascending aorta is mild-moderately enlarged. The IVC is dilated (diameter is greater than 2.1 cm) yet it collapses greater than 50% with a sniff. This suggests a right atrial pressure of 8 mm Hg. Pericardium/ Pleura There is no pericardial effusion. There is a small left- sided pleural effusion. MMode/2D Measurements & Calculations LVIDd: 7.0 cm LVOT diam: 3.1 cm LVIDs: 4.8 cm Ao root diam: 4.8 cm FS: 31.6 % asc Aorta Diam: 4.4 cm IVSd: 1.0 cm Ao Arch Diam (Prox Trans): 3.3 cm LVPWd: 0.94 cm LV fulton. diameter/BSA (cm/m^2): 3.8 LV sys. diameter/BSA (cm/m^2): 2.6 LA A2 area: 27.2 cm2 RA long axis: 5.8 cm LA A4 area: 25.5 cm2 RA area: 15.9 cm2 LA length (vol): 5.7 cm RA vol: 37.1 ml LA vol: 104.0 ml RA : 20.2 ml/m2 LA vol index: 56.7 ml/m2 IVC diam: 2.5 cm RVD1 (basal): 3.4 cm RVD2 (mid): 3.5 cm TAPSE: 1.9 cm Doppler Measurements & Calculations Ao V2 max: 199.8 cm/sec LVOT Max Anthony: 153.8 cm/sec Ao V2 mean: 136.9 cm/sec LV V1 max P.5 mmHg Ao max P.0 mmHg LV V1 VTI: 32.9 cm Ao mean P.5 mmHg CATERINA(I,D): 6.0 cm2 Ao V2 VTI: 40.1 cm CATERINA(V,D): 5.7 cm2 sev ratio: 0.82 CATERINA indexed to BSA (cm^2/m^2): 3.3 AI P1/2t: 436.7 msec AI dec slope: 273.5 cm/sec2 MV E max anthony: 91.0 cm/sec TR max anthony: 286.3 cm/sec MV A max anthony: 45.2 cm/sec TR max P.8 mmHg MV E/A: 2.0 PA V2 max: 93.1 cm/sec Med Peak E' Anthony: 7.5 cm/sec PA V2 mean: 70.1 cm/sec E/E' med: 12.2 PA mean P.1 mmHg Lat Peak E' Anthony: 7.5 cm/sec PA pr(Accel): 41.3 mmHg E/E' lat: 12.1 E/e' average: 12.1 MV dec time: 0.28 sec SV(LVOT): 242.6 ml Reading Physician:09:15 AM
[2024-04-11] MEDS: cefTRIAXone 2,000 MG in SODIUM CHLORIDE 0.9% 100 ML 200 MG IV (13:01)
--- NOTE | 2024-04-11 13:24 | CM.DANOTE ---
ED COMPUTER LAB AIDE DCP Assessment Note: Pt is a 73yo male, resident of [place], is admitted for a GLF, Sacral decubitus ulcer, Elevated INR, Cellulitis. Pt lives in an apartment alone, has local family in [place] and in [place]. Pt's Primary Care Provider is Dr. Rafa Dash and insurance is [employer] and Medicaid [employer]. Reviewed chart and team rounds for pt's medical status and initial discharge needs. ED COMPUTER LAB AIDE met w/patient at bedside; introduced self and role. Patient was found in bed, alert and oriented, cooperative with assessment. Pt confirmed living situation, independent at baseline until this fall from the bathtub. Patient reports good support in cousin and sister, requests for this COMPUTER LAB AIDE to reach out to cousin, Shaqulile, and notify of admission to acute care. Pt has a hx of SNF Rehab at [facility] and [facility], Hx of home health with [facility]. Pt agreeable to evolving care plan. Patient expressed preferences for [facility] if SNF recommended and [facility] if home health recommended. ED COMPUTER LAB AIDE called pt cousin, Shaquille Phelps, notified him of the above information per patient consent. ED COMPUTER LAB AIDE relayed message from pt to request cousin notify his sister and other cousin, listed in patient chart. Plan: Patient to be admitted to acute care, plan of care evolving. CM team will follow closely for coordination of discharge plans. DENICE Tracey Discharge Planning/Care Management CM Discharge Assessment Start: 04/11/24 13:20 Freq: Status: Active Protocol: Document 04/11/24 13:20 MW (Rec: 04/11/24 13:24 MW [id number]) Discharge Planning Assessment Assigned School Business Manager CARMINE Barnes DPOA/Assigned Designee Name Shaquille Phelps Cousin Contact Information [phone] Advance Directives? Yes: Patient reports one was completed while at [facility] Advance Directives on File No History Provided By Patient,Family Member,Medical Record Has Patient been admitted in last 30 No days? Prior Living Arrangements Apartment/Condo Comment [place] Household Members none Type of transporation used prior to Relies on Others admit Comment Patient states he can drive short distances but his car is not operable at the time, currently relying on his cousins for transport. Has utilized [facility] transport in the past. Independent with ADL's Yes Is patient alert and oriented? Yes Comment Patient reports that he uses crutches at [facility]. Patient/Family Preference Fdc Facility Comment SNF Preference: [facility] HH Preference: [facility] Barriers to Discharge No Review Status In Process Please Provide Date Initial DC 04/11/24 Assessment Was Performed Next Review Type Continued Stay Review
[2024-04-11] MEDS: OXYCODONE IR 5 MG TABLET PO ×2 (13:52→21:18)
[2024-04-11] MEDS: ACETAMINOPHEN 325 MG TABLET 650 MG PO (13:55)
--- NOTE | 2024-04-11 14:24 | PC.WOUNDPHOT ---
Addendum entered by Ioana Sheikh R.N. 04/11/24 19:15: [email or web address] Original Note:
--- NOTE | 2024-04-11 16:53 | P.HP_ITS ---
History of Present Illness History of Present Illness Date Patient Seen: 04/11/24 Time Patient Seen: 16:53 Chief complaint: fall, L hip injury Narrative: 73 M PMH of paroxysmal atrial fibrillation on warfarin, dilated cardiomyopathy, mod-severe AR, hypertension, hyperlipidemia, neurogenic bladder with daily self- cath, BPH, and AAA who presented with left hip pain after a fall on thursday. He was sitting on the side of his tub and fell on to his buttocks. He has had continued pain, difficulty ambulating. He came in today with continued pain and drainage noted from the area. He denies recent shortness of breath, fever, abdominal pain, nausea, vomiting, or diarrhea. He further denies cough, focal weakness or numbness, no facial droop, and no numbness. He denies any lesions or skin issues prior to his fall. CT scan performed showed large decubitus sacral ulcer, possible osteomyelitis. MR did not show any evidence of osteomyelitis. There is no abscess notable. He was given a dose of ceftriaxone in the ER. 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) Aortic regurgitation BPH (benign prostatic hyperplasia) Cyst of left kidney Neoplasm of uncertain behavior of bladder Elevated PSA Iron deficiency anemia due to dietary causes Neurogenic bladder (Unknown) Neuropathy (Unknown) Encephalopathy (Unknown) Gastric ulcer (Unknown) Osteoarthritis (Unknown) Osteopenia (04/29/16) Surgical History Status post cardiac catheterization (~2020) History of colon resection Hx of shoulder surgery (Unknown) History of left hip replacement (Unknown) History of bilateral knee replacement (Unknown) Family History Mother Cancer Medical history unknown Father Medical history unknown Social History marital status: unknown household members: none occupational status: previously employed Smoking Status: Former smoker second hand exposure: No alcohol intake: never substance use type: does not use Meds Home Medications and Allergies Home Medications Medication Instructions Recorded Confirmed Type cholecalciferol (vitamin D3) 50 4,000 unit PO DAILY #0 caps 10/12/18 04/11/24 History mcg (2,000 unit) capsule (Vitamin D3) ferrous sulfate 325 mg (65 mg 325 mg PO MOTUWETHFR 12/21/18 04/11/24 History iron) tablet acetaminophen 500 mg capsule 1,000 mg PO Q6H PRN pain 02/23/19 04/11/24 History ascorbate calcium (vitamin C) 500 1,000 mg PO DAILY 12/18/20 04/11/24 History mg capsule losartan 50 mg tablet 50 mg PO BID 07/26/22 04/11/24 History atorvastatin 20 mg tablet (Lipitor) 20 mg PO BEDTIME #90 tabs 01/05/23 04/11/24 Rx amiodarone 200 mg tablet 200 mg PO DAILY 04/19/23 04/11/24 History amlodipine 2.5 mg tablet 2.5 mg PO BID #180 tabs 09/01/23 04/11/24 Rx carvedilol 25 mg tablet 25 mg PO BID 10/29/23 04/11/24 History furosemide 20 mg tablet (Lasix) 20 mg PO DAILY #30 tabs 11/12/23 04/11/24 Rx tamsulosin 0.4 mg capsule (Flomax) 0.4 mg PO DAILY #30 caps 02/01/24 04/11/24 Rx methenamine hippurate 1 gram tablet 1 g PO BID 04/11/24 04/11/24 History warfarin 3 mg tablet 2 mg PO BEDTIME 04/11/24 04/11/24 History Allergies Allergy/AdvReac Type Severity Reaction Status Date / Time ciprofloxacin Allergy Severe BREATHING Verified 10/29/23 13:03 PROBLEMS, CHILLS, SHAKES alendronate sodium AdvReac Severe GI bleed Verified 10/29/23 13:03 [ALENDRONATE SODIUM] cephalexin AdvReac Mild Headache Verified 10/29/23 13:03 morphine AdvReac Mild ABD PAIN Verified 10/29/23 13:03 Review of Systems Review of Systems Narrative: All other systems reviewed with the patient and are negative unless otherwise stated. Exam Vital Signs (past 8 hours): - 04/11/24 10:25 04/11/24 10:31 04/11/24 11:00 Temperature 98.3 F Pulse Rate 75 75 71 Respiratory Rate 16 Blood Pressure 189/77 H 189/77 H 177/71 H Pulse Oximetry 99 99 98 Oxygen Delivery Method Room Air Oxygen Flow Rate 04/11/24 11:24 04/11/24 11:30 04/11/24 12:00 Temperature Pulse Rate 69 65 66 Respiratory Rate Blood Pressure 166/73 H 150/66 H 171/69 H Pulse Oximetry 99 97 96 Oxygen Delivery Method Oxygen Flow Rate 04/11/24 12:30 04/11/24 12:54 04/11/24 13:00 Temperature Pulse Rate 70 66 Respiratory Rate Blood Pressure 170/72 H 153/65 H Pulse Oximetry 98 98 97 Oxygen Delivery Method Room Air Oxygen Flow Rate 04/11/24 13:30 04/11/24 13:45 Temperature 99.6 F Pulse Rate 66 72 Respiratory Rate 16 16 Blood Pressure 143/65 H 156/45 H Pulse Oximetry 97 95 Oxygen Delivery Method Room Air Oxygen Flow Rate 0 Oxygen Delivery Method Room Air Oxygen Flow Rate 0 Narrative Exam Narrative: General:? Patient is well developed and well nourished, in no distress at this time. Lungs:? CTA b/l no wheezing rhonchi or rales. Cardio:?regular rate, irregularly irregular rhythm Abdomen: S NT ND. Musculoskeletal:? Muscle strength and tone are equal within normal limits, no deformity. Extremities: No edema or joint effusions. No cyanosis or clubbing. Skin:?See pictures, there is an approx 4-5 cm decubitus ulcer with ? bruising, crossing midlinemild surrounding erythema, no drainage. Neuro:? Alert and orientated x3,? sensation to touch intact in all extremities, no gross deficits noted of cranial nerves. Psych:? Patient has a well-kept appearance, appropriate affect, mental status attitude thought context and judgment are appropriate for age. Objective ECG Impression: rate controlled atrial fibrillation, rate 68, no acute ischemia Labs 04/11/24 10:35 04/11/24 10:35 Labs: Laboratory Results - last 24 hr 04/11/24 04/11/24 10:35 11:45 WBC 14.6 H RBC 3.86 L Hgb 10.9 L Hct 32.5 L MCV 84.3 MCH 28.3 MCHC 33.6 RDW 16.0 H Plt Count 359 Neut % (Auto) 85.7 H Lymph % (Auto) 5.0 L [place] % (Auto) 7.7 Eos % (Auto) 1.1 L Baso % (Auto) 0.5 Neut # (Auto) 55594 H Lymph # (Auto) 700 L [place] # (Auto) 1100 H Eos # (Auto) 200 Baso # (Auto) 100 PT 54.1 H INR 4.6 H* APTT 60 H Sodium 138 Potassium 3.0 L Chloride 109 H Carbon Dioxide 19 L BUN 29 H Creatinine 1.25 Estimated GFR > 60 BUN/Creatinine Ratio 23.2 H Glucose 96 Lactate 1.5 Calcium 9.2 Total Bilirubin 0.7 AST 22 ALT 16 Alkaline Phosphatase 99 Total Creatine Kinase 212 H Troponin I 0.017 Total Protein 7.0 Albumin 3.4 L Globulin 3.6 Albumin/Globulin Ratio 0.9 L Urine Color Yellow Urine Appearance Cloudy Urine pH 6.0 Ur Specific [place] 1.015 Urine Protein 1+ H Urine Glucose (UA) Negative Urine Ketones Negative Urine Occult Blood 3+ H Urine Nitrate Negative Urine Bilirubin Negative Urine Urobilinogen 0.2 Ur Leukocyte Esterase 2+ H Urine RBC 5-10/hpf H Urine WBC 10-30/hpf H Ur Squamous Epith Cells 1-5 /hpf Amorphous Sediment 2+ Urine Bacteria Moderate (10-30) H Ur Culture Indicated? Specimen cultured Vol Urine Centrifuged 10ml (spun) Assessment & Plan Assessment & Plan narrative: 1. Sacral decubitus ulcer, possible infection, unstageable - continue ceftriaxone and vancomycin for now. - see images from nursing note for documentation. May be related to fall or chronically developing, unclear at this time. - continue local wound care, antibiotics for possible infection and cellulitis, but there did not appear to be an appropriate area to swab for culture at this time. - PT / OT evaluation - consider wound care or surgery evaluation depending on progression of wound with antibiotics. INR elevated, continue with local wound care per nursing protocols, pressure offloading at this time. - MRSA swab, can stop vancomycin if negative. 2. Acute cystitis related to chronic urinary obstruction - UA positive, continue ceftriaxone. Follow up blood and urine cultures. 3. Possible mild acute on chronic diastolic heart failure - No reported symptoms, weakness could be related to above infection, or given heart possible diastolic heart failure given his previous valvular issues. - will repeat echo. - for now with minimal symptoms continue home medications with coreg, amlodipine, losartan bid. 4. HTN - continue home medications without change, mildly hypertensive on presentation. 5. paroxysmal atrial fibrillation -currently rate controlled -continue home coreg, amio and warfarin 6. supratherapeutic INR -currently 4.6, no evidence of bleeding -warfarin per pharmacy -monitor 7. BPH with chronic urinary obstruction -continue flomax -change aldana if not changed in the ER. 8. HLD -continue statin Code status is full code. DVT prophylaxis with warfarin. Proxy is sister Deyanira. I have utilized all available immediate resources to obtain, update, or review the patient's current medications. Dispo: patient admitted under inpatient status. Unclear if will be able to discharge home or possible SNF, will have PT/OT evaluations. Additional history obtained via discussions with the ER provider. These discussions contributed to the creation of the above assessment and plan. I have reviewed patient's presenting documentation, labs, and imaging personally. Time-Based Coding :: [TOTAL MINUTES] spent with patient and on the chart (including review of chart, obtaining history, exam, reviewing outside data, placing orders, documenting exam and treatment plan, and counseling patient) on [DATE]. Quality VTE Deep Vein Thrombosis/Pulmonary Embolism Present on Admission: No
[2024-04-11] MEDS: FERROUS SULFATE 325 MG TABLET PO (18:31)
--- NOTE | 2024-04-11 18:59 | PC.NURSE ---
Patient arrived this afternoon to room 208 at 1345. He is A&OX4. VSS, afebrile temp 99.6. He reports pain to R thigh, and buttocks. He is able to stand pivot transfer with pain from gurney to bed. He is shortly after taken to MRI. Admission completed at bedside, oriented to room/unit routine, call light in reach, belongings in reach, bed alarm on. Alberta RN completed med rec, locked wallet in safe for patient. Patient tolerates dinner well and reports pain well controlled with prn oxycodone and tylenol. Continuous monitoring.
[2024-04-11 19:37] LABS: MRSA (Nasal) PCR NOT DETECTED (Not Detect)
[2024-04-11] MEDS: ATORVASTATIN 20 MG TABLET PO (21:17)
[2024-04-11] MEDS: LOSARTAN 50 MG TABLET PO (21:17)
[2024-04-11] MEDS: POTASSIUM CHLORIDE 20 MEQ TAB 40 MEQ PO (21:19)
[2024-04-11] MEDS: carvediloL 12.5 MG TABLET 25 MG PO (21:19)
[2024-04-11] MEDS: AMLODIPINE 5 MG TABLET 2.5 MG PO (21:19)
[2024-04-11] MEDS: SODIUM CHLORIDE 0.9% FLUSH 10 ML IV (21:39)
[2024-04-12] VITALS (13 sets, daily range): BP systolic 106–157; BP diastolic 43–66; PULSE 58–74; RESP 16–18; TEMP 36.3–38.2; O2SAT 92–98
[2024-04-12] MEDS: OXYCODONE IR 5 MG TABLET PO ×3 (05:44→19:58)
[2024-04-12 06:53] LABS: Add Manual Diff / Slide Review NO; Basophils Absolute Auto 100 /uL (0-100); Basophils Percent Auto 0.7 % (0-2); Eosinophils Absolute Auto 200 /uL (0-450); Eosinophils Percent Auto 2.2 % (2-4); Hematocrit 24.5 % (41-53); Hemoglobin 8.3 g/dL (13.5-17.5); Lymphocytes Absolute Auto 900 /uL (1100-4500); Lymphocytes Percent Auto 10.1 % (25-40); Mean Corpuscular HGB Conc 33.9 % (30-36); Mean Corpuscular Hemoglobin 28.7 PG (26-34); Mean Corpuscular Volume 84.7 fL (80-100); Monocytes Absolute Auto 800 /uL (0-900); Monocytes Percent Auto 9.7 % (3-14); Neutrophils Absolute Auto 6600 /uL (1500-7000); Neutrophils Percent Auto 77.3 % (50-75); Platelet Count 251 X10^3/uL (150-400); Red Cell Distribution Width 15.9 % (11.6-14.8); White Blood Cell Count 8.5 X10^3/uL (4.5-11.0)
[2024-04-12 07:07] LABS: Alanine Aminotransferase 11 IU/L (<50); Albumin 2.5 g/dL (3.5-5.0); Albumin Globulin Ratio 0.8 (1.0-2.8); Alkaline Phosphatase 75 U/L (38-126); Aspartate Aminotransferase 17 IU/L (17-59); BUN Creatinine Ratio 17.6 (6-22); Bilirubin Total 0.5 mg/dL (0.2-1.3); Blood Urea Nitrogen 19 mg/dL (9-20); Calcium 8.4 mg/dL (8.4-10.2); Carbon Dioxide 22 mmol/L (22-32); Chloride 110 mmol/L (98-107); Estimated Glomerular Filt Rate > 60 mL/min (>60); Glucose 108 mg/dL (80-110); HEMOLYSIS < 15 (0-50); Magnesium 2.1 mg/dL (1.6-2.3); Potassium 3.4 mmol/L (3.4-5.1); Sodium 135 mmol/L (137-145); Total Protein 5.5 g/dL (6.3-8.2)
[2024-04-12 07:08] LABS: Prothrombin Time 56.7 SECONDS (9.4-12.5)
[2024-04-12 07:14] LABS: INR 4.9 (0.9-1.3)
[2024-04-12] MEDS: carvediloL 12.5 MG TABLET 25 MG PO ×2 (08:19→21:50)
[2024-04-12] MEDS: AMIODARONE 200 MG TABLET PO (08:19)
[2024-04-12] MEDS: ASCORBIC ACID 500 MG TABLET 1000 MG PO (08:19)
[2024-04-12] MEDS: TAMSULOSIN 0.4 MG CAPSULE PO (08:19)
[2024-04-12] MEDS: AMLODIPINE 5 MG TABLET 2.5 MG PO ×2 (08:20→21:50)
[2024-04-12] MEDS: FUROSEMIDE 20 MG TABLET PO (08:20)
[2024-04-12] MEDS: CHOLECALCIFEROL (VITAMIN D3) 1,000 UNIT TABLET 4000 UNIT PO (08:20)
[2024-04-12] MEDS: LOSARTAN 50 MG TABLET PO ×2 (08:20→21:51)
[2024-04-12] MEDS: SODIUM CHLORIDE 0.9% FLUSH 10 ML IV ×2 (08:21→21:52)
[2024-04-12] MEDS: ACETAMINOPHEN 325 MG TABLET 650 MG PO ×2 (08:21→19:58)
--- NOTE | 2024-04-12 08:59 | OT.IPNOTE ---
Per hospitalist okay to hold OT eval due to awaiting consult from surgery.
--- NOTE | 2024-04-12 09:07 | PT-IP ANOTE ---
PT consult received. Pt with INR 4.9 today and trending upwards. DO recommends hold PT today. Pt may have surgery on sacral wound.
--- NOTE | 2024-04-12 11:45 | DIET.CONS ---
Dietary Consultation Note Admission Date: 04/11/2024 12:40 Assessment: 73 y M admitted after fall and for sacral decubitus ulcer, unstageable. RD screened for Fransisco score <15. Met w/ pt in room. Reports last week and half has not been eating as much and not been moving around much. Didn't want to cook to avoid having to do dishes/get up. Diet recall in last 1.5 wks- Ordered pizza 3 times and had a few bowls of cereal or ice cream. Does have meals on wheel deliver 1 meal/day 7 days/wk but states the 2 meals he's received at the hospital so far has been more food than he's eaten in the past 1.5 weeks. He has noted significant weight loss during this time. Nutrition focused physical exam: -Moderate muscle mass loss temporalis, deltoid, trapezius, pectorlis major, interosseous -Moderate subcutaneous fat lass in buccal and orbital fat pads and triceps Ht: 175.26 cm Wt: 68.492 kg BMI: 22.3 UBW: 79.55 kg per pt a month ago (14% weight loss within 1 month, severe), per EMR most recent weight available is 78.585 kg on 06/09/23 Last BM: 04/10/24 (04/11/24 12:54) MNA: 11 Fransisco Score: 14 Diet: 04/11/24 Dinner Heart Healthy Diet Diet Modifications: Nutrition Percent Meal Consumed 100% 04/12/24 09:00 Percent Meal Consumed 75% 04/12/24 07:40 Percent Meal Consumed 75% 04/11/24 18:00 Labs: RBC 2.90 X10^6/uL (4.5-5.9) L 04/12/24 06:20 Hgb 8.3 g/dL (13.5-17.5) L 04/12/24 06:20 Hct 24.5 % (41-53) L 04/12/24 06:20 Creatinine 1.08 mg/dL (0.66-1.25) 04/12/24 06:20 Lactate 1.5 mmol/L (0.7-2.1) 04/11/24 10:35 Nutrition Diagnosis: Severe acute protein calorie malnutrition r/t increased nutrient needs for healing (protein) and inadequate oral intakes as evidenced by sacral decubitus ulcer, moderate muscle mass loss (temporalis, deltoid, interossoeus), moderate subcutaneous fat loss (buccal, orbital, triceps), 14% weight loss in 1 month (severe), <50% of estimated energy needs in 10 days per diet recall (severe) Interventions: Richie BID ONS daily EER: [id number] kcals (25-30 kcals/kg per BMI), 85-100 g protein (1.25-1.5 g/kg per PCM and ulcer) Monitoring/Evaluations: po intakes, richie tolerance Electronically Signed by: Jie Castro 04/12/24 11:45 Clinical Dietitian [address] [address]
--- NOTE | 2024-04-12 11:51 | P.PN_ITS ---
Subjective Subjective Interval history: 73 M admitted with decubitus ulcer. Discussed with surgery whom recommends debridement. Working on improving INR, but it's up this morning to 4.9. Will give 10 mg Vit K, continue to hold coumadin. His pain is tolerable with oxycodone today. Exam Vital Signs (past 8 hours): - 04/12/24 04:00 04/12/24 05:42 04/12/24 07:40 Temperature 98.3 F Pulse Rate 58 L Respiratory Rate 16 Blood Pressure 135/47 L Pulse Oximetry 94 94 92 Oxygen Delivery Method Room Air Room Air Oxygen Flow Rate 0 0 0 04/12/24 08:19 04/12/24 08:20 04/12/24 09:00 Temperature 98.4 F Pulse Rate 66 Respiratory Rate 16 Blood Pressure 157/54 H 157/54 H 151/54 H Pulse Oximetry 92 Oxygen Delivery Method Oxygen Flow Rate 0 04/12/24 11:00 Temperature Pulse Rate Respiratory Rate Blood Pressure Pulse Oximetry 92 Oxygen Delivery Method Room Air Oxygen Flow Rate 0 Oxygen Delivery Method Room Air Oxygen Flow Rate 0 Narrative Exam Narrative: General:? Patient is well developed and well nourished, in no distress at this time. Lungs:? CTA b/l no wheezing rhonchi or rales. Cardio:?regular rate, irregularly irregular rhythm Abdomen: S NT ND. Musculoskeletal:? Muscle strength and tone are equal within normal limits, no deformity. Extremities: No edema or joint effusions. No cyanosis or clubbing. Skin:?See pictures, there is a decubitus ulcer with eschar, crossing midline mild surrounding erythema Neuro:? Alert and orientated x3,? sensation to touch intact in all extremities, no gross deficits noted of cranial nerves. Psych:? Patient has a well-kept appearance, appropriate affect, mental status attitude thought context and judgment are appropriate for age. Objective Labs 04/12/24 06:20 04/12/24 06:20 Labs: Laboratory Results - last 24 hr 04/11/24 04/11/24 04/12/24 11:45 18:10 06:20 WBC 8.5 RBC 2.90 L Hgb 8.3 L Hct 24.5 L MCV 84.7 MCH 28.7 MCHC 33.9 RDW 15.9 H Plt Count 251 Neut % (Auto) 77.3 H Lymph % (Auto) 10.1 L [place] % (Auto) 9.7 Eos % (Auto) 2.2 Baso % (Auto) 0.7 Neut # (Auto) 6600 Lymph # (Auto) 900 L [place] # (Auto) 800 Eos # (Auto) 200 Baso # (Auto) 100 PT 56.7 H INR 4.9 H* Sodium 135 L Potassium 3.4 Chloride 110 H Carbon Dioxide 22 BUN 19 Creatinine 1.08 Estimated GFR > 60 BUN/Creatinine Ratio 17.6 Glucose 108 Calcium 8.4 Magnesium 2.1 Total Bilirubin 0.5 AST 17 ALT 11 Alkaline Phosphatase 75 Total Protein 5.5 L Albumin 2.5 L Globulin 3.0 Albumin/Globulin Ratio 0.8 L Urine Color Yellow Urine Appearance Cloudy Urine pH 6.0 Ur Specific [place] 1.015 Urine Protein 1+ H Urine Glucose (UA) Negative Urine Ketones Negative Urine Occult Blood 3+ H Urine Nitrate Negative Urine Bilirubin Negative Urine Urobilinogen 0.2 Ur Leukocyte Esterase 2+ H Urine RBC 5-10/hpf H Urine WBC 10-30/hpf H Ur Squamous Epith Cells 1-5 /hpf Amorphous Sediment 2+ Urine Bacteria Moderate (10-30) H Ur Culture Indicated? 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) Aortic regurgitation BPH (benign prostatic hyperplasia) Cyst of left kidney Neoplasm of uncertain behavior of bladder Elevated PSA Iron deficiency anemia due to dietary causes Neurogenic bladder (Unknown) Neuropathy (Unknown) Encephalopathy (Unknown) Gastric ulcer (Unknown) Osteoarthritis (Unknown) Osteopenia (04/29/16) Surgical History Status post cardiac catheterization (~2020) History of colon resection Hx of shoulder surgery (Unknown) History of left hip replacement (Unknown) History of bilateral knee replacement (Unknown) Family History Mother Cancer Medical history unknown Father Medical history unknown Social History marital status: unknown household members: none occupational status: previously employed Smoking Status: Former smoker second hand exposure: No alcohol intake: never substance use type: does not use Assessment & Plan Assessment & Plan narrative: 1. Sacral decubitus ulcer, possible infection, unstageable - continue ceftriaxone with positive UA. Improvement clinically today. MRSA swab negative will stop vancomycin. - see images from nursing note for documentation. May be related to fall or chronically developing, unclear at this time. - continue local wound care, antibiotics for possible infection and cellulitis. Discussed with surgeon, recommends debridement, timing to depend on improvement in INR. - PT / OT evaluation - INR elevated, continue with local wound care per nursing protocols, pressure offloading at this time. 2. Acute cystitis related to chronic urinary obstruction - UA positive, continue ceftriaxone. Follow up blood and urine cultures. 3. Possible mild acute on chronic diastolic heart failure - No reported symptoms, weakness could be related to above infection, or given heart possible diastolic heart failure given his previous valvular issues. - Repeat echo yesterday was unchanged from prior. - continue home medications with coreg, amlodipine, losartan bid. 4. HTN - continue home medications without change, mildly hypertensive on presentation. 5. paroxysmal atrial fibrillation -currently rate controlled -continue home coreg, amio and warfarin 6. supratherapeutic INR -currently 4.9, no evidence of bleeding -warfarin per pharmacy, will give Vitamin K today. -monitor daily INR. Consider FFP prior to debridement. 7. BPH with chronic urinary obstruction -continue flomax -change aldana if not changed in the ER. 8. HLD -continue statin Code status is full code. DVT prophylaxis with warfarin. Proxy is sister Deyanira. I have utilized all available immediate resources to obtain, update, or review the patient's current medications. Dispo: patient admitted under inpatient status. Unclear if will be able to discharge home or possible SNF, will have PT/OT evaluations. Additional history obtained via discussions with the surgeon. These discussions contributed to the creation of the above assessment and plan. I have reviewed patient's presenting documentation, labs, and imaging personally. Time-Based Coding :: [TOTAL MINUTES] spent with patient and on the chart (including review of chart, obtaining history, exam, reviewing outside data, placing orders, documenting exam and treatment plan, and counseling patient) on [DATE]. Quality VTE Deep Vein Thrombosis/Pulmonary Embolism Present on Admission: No
[2024-04-12] MEDS: cefTRIAXone 1,000 MG in SODIUM CHLORIDE 0.9% 100 ML 200 MG IV (12:17)
[2024-04-12] MEDS: PHYTONADIONE (VIT K1) 5 MG TABLET 10 MG PO (12:17)
--- NOTE | 2024-04-12 14:36 | CM.DPC ---
DCP Cont. Reviewed EMR and team rounds for status updates. Pt will be going to the OR tomorrow with Dr. Greene for an I&D procedure of his sacral decubitus. His cousin was also bedside during this visit. Discussed a plan for SNF rehab, preference is [facility]. Will send referral on Thursday. Discussed with his cousin how to apply for Medicaid LTC online, on order to secure funding for LTC in an assisted living once he is done with rehab. Will continue to monitor and provide coordination with transition to rehab.
[2024-04-12] MEDS: FERROUS SULFATE 325 MG TABLET PO (16:59)
[2024-04-12] MEDS: ATORVASTATIN 20 MG TABLET PO (21:51)
[2024-04-13] VITALS (9 sets, daily range): BP systolic 106–125; BP diastolic 38–51; PULSE 63–72; RESP 16–18; TEMP 36.1–37.7; O2SAT 93–98
[2024-04-13 06:23] LABS: Add Manual Diff / Slide Review NO; Basophils Absolute Auto 100 /uL (0-100); Basophils Percent Auto 0.6 % (0-2); Eosinophils Absolute Auto 300 /uL (0-450); Eosinophils Percent Auto 2.9 % (2-4); Hematocrit 24.8 % (41-53); Hemoglobin 8.4 g/dL (13.5-17.5); Lymphocytes Absolute Auto 900 /uL (1100-4500); Lymphocytes Percent Auto 9.6 % (25-40); Mean Corpuscular HGB Conc 33.9 % (30-36); Mean Corpuscular Hemoglobin 28.7 PG (26-34); Mean Corpuscular Volume 84.7 fL (80-100); Monocytes Absolute Auto 1000 /uL (0-900); Monocytes Percent Auto 11.1 % (3-14); Neutrophils Absolute Auto 6800 /uL (1500-7000); Neutrophils Percent Auto 75.8 % (50-75); Platelet Count 259 X10^3/uL (150-400); Red Blood Cell Count 2.93 X10^6/uL (4.5-5.9)
[2024-04-13 06:33] LABS: INR 1.6 (0.9-1.3); Prothrombin Time 18.5 SECONDS (9.4-12.5)
[2024-04-13 06:39] LABS: Alanine Aminotransferase 10 IU/L (<50); Albumin 2.5 g/dL (3.5-5.0); Albumin Globulin Ratio 0.9 (1.0-2.8); Alkaline Phosphatase 72 U/L (38-126); Aspartate Aminotransferase 15 IU/L (17-59); BUN Creatinine Ratio 18.8 (6-22); Bilirubin Total 0.3 mg/dL (0.2-1.3); Blood Urea Nitrogen 28 mg/dL (9-20); Calcium 8.2 mg/dL (8.4-10.2); Carbon Dioxide 23 mmol/L (22-32); Chloride 110 mmol/L (98-107); Estimated Glomerular Filt Rate 50 mL/min (>60); Globulin 2.9 g/dL (1.7-4.1); Glucose 101 mg/dL (80-110); HEMOLYSIS < 15 (0-50); Potassium 4.2 mmol/L (3.4-5.1); Sodium 135 mmol/L (137-145); Total Protein 5.4 g/dL (6.3-8.2)
[2024-04-13] MEDS: FUROSEMIDE 20 MG TABLET PO (08:37)
[2024-04-13] MEDS: ASCORBIC ACID 500 MG TABLET 1000 MG PO (08:37)
[2024-04-13] MEDS: TAMSULOSIN 0.4 MG CAPSULE PO (08:37)
[2024-04-13] MEDS: carvediloL 12.5 MG TABLET 25 MG PO ×2 (08:37→21:02)
[2024-04-13] MEDS: CHOLECALCIFEROL (VITAMIN D3) 1,000 UNIT TABLET 4000 UNIT PO (08:37)
[2024-04-13] MEDS: AMIODARONE 200 MG TABLET PO (08:37)
[2024-04-13] MEDS: AMLODIPINE 5 MG TABLET 2.5 MG PO ×2 (08:39→21:01)
[2024-04-13] MEDS: LOSARTAN 50 MG TABLET PO ×2 (08:39→21:02)
[2024-04-13] MEDS: SODIUM CHLORIDE 0.9% FLUSH 10 ML IV ×2 (08:40→21:04)
[2024-04-13] MEDS: OXYCODONE IR 5 MG TABLET PO ×3 (08:41→21:01)
--- NOTE | 2024-04-13 09:01 | OT.IPNOTE ---
Per Hospitalist okay to hold therapy evals until Thursday as pt to have I and D surgery tomorrow.
--- NOTE | 2024-04-13 09:44 | OT.IPNOTE ---
Per Hospitalist ok to discharge OT eval orders as pt to have sx tomorrow.
--- NOTE | 2024-04-13 11:05 | PT-IP ANOTE ---
PT eval received dated 04/11/24. pt on hold for PT yesterday and will be on hold until tomorrow. pt will be undergoing sx tomorrow. will d/c PT eval order and will await new orders after sx.
[2024-04-13] MEDS: cefTRIAXone 1,000 MG in SODIUM CHLORIDE 0.9% 100 ML 200 MG IV (11:38)
--- NOTE | 2024-04-13 11:43 | P.PN_ITS ---
Subjective Subjective Interval history: 73 M admitted with decubitus ulcer. Discussed with surgery whom recommends debridement and is planned for tomorrow with possible wound vac placement. INR now 1.6. Slight cr bump today. Otherwise patient without subjective changes. Exam Vital Signs (past 8 hours): - 04/13/24 04:00 04/13/24 08:00 04/13/24 08:00 Temperature 97.6 F 98.5 F Pulse Rate 64 72 Respiratory Rate 16 16 Blood Pressure 111/39 L 123/51 L Pulse Oximetry 95 94 94 Oxygen Delivery Method Room Air Oxygen Flow Rate 0 0 0 04/13/24 08:37 04/13/24 08:39 Temperature Pulse Rate Respiratory Rate Blood Pressure 123/51 L 123/51 L Pulse Oximetry Oxygen Delivery Method Oxygen Flow Rate Oxygen Delivery Method Room Air Oxygen Flow Rate 0 Narrative Exam Narrative: General:? Patient is well developed and well nourished, in no distress at this time. Extremities: No edema or joint effusions. No cyanosis or clubbing. Neuro:? Alert and orientated x3,? sensation to touch intact in all extremities, no gross deficits noted of cranial nerves. Psych:? Patient has a well-kept appearance, appropriate affect, mental status attitude thought context and judgment are appropriate for age. Objective Labs 04/13/24 06:02 04/13/24 06:02 Labs: Laboratory Results - last 24 hr 04/13/24 06:02 WBC 9.0 RBC 2.93 L Hgb 8.4 L Hct 24.8 L MCV 84.7 MCH 28.7 MCHC 33.9 RDW 16.0 H Plt Count 259 Neut % (Auto) 75.8 H Lymph % (Auto) 9.6 L [place] % (Auto) 11.1 Eos % (Auto) 2.9 Baso % (Auto) 0.6 Neut # (Auto) 6800 Lymph # (Auto) 900 L [place] # (Auto) 1000 H Eos # (Auto) 300 Baso # (Auto) 100 PT 18.5 H D INR 1.6 H Sodium 135 L Potassium 4.2 Chloride 110 H Carbon Dioxide 23 BUN 28 H Creatinine 1.49 H Estimated GFR 50 L BUN/Creatinine Ratio 18.8 Glucose 101 Calcium 8.2 L Magnesium 2.0 Total Bilirubin 0.3 AST 15 L ALT 10 Alkaline Phosphatase 72 Total Protein 5.4 L Albumin 2.5 L Globulin 2.9 Albumin/Globulin Ratio 0.9 L [facility] Medical History Mixed hyperlipidemia Essential hypertension Systolic CHF, chronic Thrombophilia History of UTI Typical atrial flutter Paroxysmal atrial fibrillation 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) Aortic regurgitation BPH (benign prostatic hyperplasia) Cyst of left kidney Neoplasm of uncertain behavior of bladder Elevated PSA Iron deficiency anemia due to dietary causes Neurogenic bladder (Unknown) Neuropathy (Unknown) Encephalopathy (Unknown) Gastric ulcer (Unknown) Osteoarthritis (Unknown) Osteopenia (04/29/16) Surgical History Status post cardiac catheterization (~2020) History of colon resection Hx of shoulder surgery (Unknown) History of left hip replacement (Unknown) History of bilateral knee replacement (Unknown) Family History Mother Cancer Medical history unknown Father Medical history unknown Social History marital status: unknown household members: none occupational status: previously employed Smoking Status: Former smoker second hand exposure: No alcohol intake: never substance use type: does not use Assessment & Plan Assessment & Plan narrative: 1. Sacral decubitus ulcer, possible infection, unstageable - continue ceftriaxone with positive UA. MRSA swab negative stopped vancomycin. Will change to cefazolin today given urine sensitivity on cultures noted today. - see images from nursing note for documentation. May be related to fall or chronically developing, unclear at this time. - continue local wound care, antibiotics for possible infection and cellulitis. Discussed with surgeon today, recommends debridement, INR 1.6 plan for OR debridement tomorrow with possible wound vac placement. - PT / OT evaluation stopped until surgery is completed - continue with local wound care per nursing protocols, pressure offloading at this time. 2. Acute cystitis with E. coli related to chronic urinary obstruction - UA positive, continued ceftriaxone. Will change to cefazolin given sensitivity noted on E. coli cultures. 3. Possible mild acute on chronic diastolic heart failure - No reported symptoms, weakness could be related to above infection, or given heart possible diastolic heart failure given his previous valvular issues. - Repeat echo yesterday was unchanged from prior. - continue home medications with coreg, amlodipine, losartan bid. 4. HTN - continue home medications without change, mildly hypertensive on presentation. 5. paroxysmal atrial fibrillation -currently rate controlled -continue home coreg, amio and warfarin (after surgery) 6. supratherapeutic INR -4.9 yesterday, 1.6 today after 10 mg PO vitamin K, no evidence of bleeding -monitor daily INR. -restart after surgery 7. BPH with chronic urinary obstruction -continue flomax -change aldana if not changed in the ER. 8. HLD -continue statin Code status is full code. DVT prophylaxis with warfarin. Proxy is sister Deyanira. I have utilized all available immediate resources to obtain, update, or review the patient's current medications. Dispo: patient admitted under inpatient status. Unclear if will be able to discharge home, likely SNF, PT/OT after surgery. Additional history obtained via discussions with the surgeon. These discussions contributed to the creation of the above assessment and plan. I have reviewed patient's presenting documentation, labs, and imaging personally. Time-Based Coding :: [TOTAL MINUTES] spent with patient and on the chart (including review of chart, obtaining history, exam, reviewing outside data, placing orders, documenting exam and treatment plan, and counseling patient) on [DATE]. Quality VTE Deep Vein Thrombosis/Pulmonary Embolism Present on Admission: No
--- NOTE | 2024-04-13 11:53 | CM.DPC ---
DCP Cont. Reviewed EMR and team rounds for status updates. Pt's INR was too high today, plan is surgery tomorrow for I&D. Will likely need a wound vac post-op. Sent referral to [facility], although pt will likely not be ready for therapies until Thursday.
--- NOTE | 2024-04-13 13:36 | PC.NURSE ---
04/12/24 Pt requested from [employer] to retrieve their possessions from the safe to give his keys to his sister.Pt gave [employer] retrieval slip, retrieval slip was given to coordinator CHELSI Bruno, Items were retrieved then given to Pt. Pt confirmed items were accounted for and signed retrieval slip. [employer] placed retrieval slip in Pt chart folder.
--- NOTE | 2024-04-13 13:37 | PC.NURSE ---
04/12 Pt requested to have his valuables from the safe, his wallet and keys were in the bag, gave belongings to [facility] for patient. Form signed, patient has his keys and wallet, no further needs at this time.
[2024-04-13] MEDS: FERROUS SULFATE 325 MG TABLET PO (17:18)
[2024-04-13] MEDS: ACETAMINOPHEN 325 MG TABLET 650 MG PO (21:01)
[2024-04-13] MEDS: ATORVASTATIN 20 MG TABLET PO (21:04)
[2024-04-14] VITALS (26 sets, daily range): BP systolic 105–147; BP diastolic 38–86; PULSE 53–86; RESP 10–20; TEMP 36.1–37.7; O2SAT 92–96; BMI 22.3
--- NOTE | 2024-04-14 | PATH_ITS ---
[facility] Accession Number: [id number] No. of containers..01 Tissue . 01 Material submitted: . sacrum - SACRUM . 01 Clinical history: . SACRAL DECUBITUS . 01 Diagnosis: SACRUM, BIOPSY: Ulcer with necrotic dermis and subcutis, with acute inflammation and abscess formation, compatible with decubitus ulcer. . Note: Gram stain is noncontributory due to technical difficulties. PAS stain is negative for fungal hyphae. However, special stains are not sensitive. Tissue cultures are recommended if infection is a clinical concern. Clinicopathological correlation is advised for definitive diagnosis. [facility] 04/20/2024 1551 Local . 01 Electronically signed: . Rona Howell MD, Dermatopathologist NPI- [id number] . 01 Gross description: . Received in formalin, labeled with two patient identifiers and designated sacral decubitus, and consists of a 6.0 x 5.8 x 1.2 cm, irregular, partially friable skin that has a guaman, dusky brown, diffusely fibrotic and focally necrotic subcutaneous tissue. The surface of the skin is diffusely effaced, guaman-brown, and coarsely granular. Also received in the same container is a 3.2 x 1.5 x 0.8 cm, diffusely fibrotic subcutaneous tissue that is partially surfaced by guaman-brown, wrinkled skin. The subcutaneous tissue is inked. The specimen is serially sectioned, and internet sales representative sections are submitted in cassettes A1 and A2. ([id number]) /OMI 04/16/2024 1210 Local . 01 Pathologist provided ICD-10: R23.9 . 01 CPT . 597071, [id number] Performed at: [address], [place] [id number] MD Shawn Alberto MD Phone: [phone]
[2024-04-14] MEDS: OXYCODONE IR 5 MG TABLET PO ×3 (02:53→17:20)
[2024-04-14] MEDS: ACETAMINOPHEN 325 MG TABLET 650 MG PO ×2 (02:53→10:13)
[2024-04-14 06:05] LABS: Add Manual Diff / Slide Review NO; Basophils Absolute Auto 0 /uL (0-100); Basophils Percent Auto 0.3 % (0-2); Eosinophils Absolute Auto 300 /uL (0-450); Eosinophils Percent Auto 2.5 % (2-4); Hematocrit 25.3 % (41-53); Hemoglobin 8.6 g/dL (13.5-17.5); Lymphocytes Absolute Auto 900 /uL (1100-4500); Lymphocytes Percent Auto 8.6 % (25-40); Mean Corpuscular HGB Conc 33.9 % (30-36); Mean Corpuscular Hemoglobin 28.7 PG (26-34); Mean Corpuscular Volume 84.6 fL (80-100); Monocytes Absolute Auto 1200 /uL (0-900); Neutrophils Absolute Auto 8400 /uL (1500-7000); Neutrophils Percent Auto 77.6 % (50-75); Platelet Count 257 X10^3/uL (150-400); Red Blood Cell Count 2.98 X10^6/uL (4.5-5.9); Red Cell Distribution Width 15.8 % (11.6-14.8); White Blood Cell Count 10.9 X10^3/uL (4.5-11.0)
[2024-04-14 06:10] LABS: INR 1.3 (0.9-1.3); Prothrombin Time 14.9 SECONDS (9.4-12.5)
[2024-04-14 06:12] LABS: Alanine Aminotransferase 11 IU/L (<50); Albumin 2.5 g/dL (3.5-5.0); Albumin Globulin Ratio 0.8 (1.0-2.8); Alkaline Phosphatase 74 U/L (38-126); Aspartate Aminotransferase 15 IU/L (17-59); BUN Creatinine Ratio 26.9 (6-22); Bilirubin Total 0.4 mg/dL (0.2-1.3); Blood Urea Nitrogen 35 mg/dL (9-20); Calcium 8.6 mg/dL (8.4-10.2); Carbon Dioxide 22 mmol/L (22-32); Chloride 110 mmol/L (98-107); Estimated Glomerular Filt Rate 58 mL/min (>60); Glucose 99 mg/dL (80-110); HEMOLYSIS < 15 (0-50); Magnesium 2.2 mg/dL (1.6-2.3); Potassium 4.4 mmol/L (3.4-5.1); Sodium 135 mmol/L (137-145); Total Protein 5.5 g/dL (6.3-8.2)
[2024-04-14] MEDS: AMIODARONE 200 MG TABLET PO (10:12)
--- NOTE | 2024-04-14 11:42 | CM.DPC ---
DCP Cont. Reviewed EMR and team rounds for status updates. Pt will be taken to the OR today at 4:30 for I&D of his sacral decubitus ulcer. Plan is for him to start therapies on Thursday, [facility] is reviewing for placement after the weekend with a wound vac. Monitoring closely.
--- NOTE | 2024-04-14 14:15 | P.PN_ITS ---
Subjective Subjective Date Patient Seen: 04/14/24 Time Patient Seen: 09:43 Interval history: 73 M PMH of paroxysmal atrial fibrillation on warfarin, dilated cardiomyopathy, mod-severe AR, hypertension, hyperlipidemia, neurogenic bladder with daily self- cath, BPH, and AAA who presented with left hip pain after a fall on thursday. He was sitting on the side of his tub and fell on to his buttocks. He has had continued pain, difficulty ambulating. He came in today with continued pain and drainage noted from the area. He denies recent shortness of breath, fever, abdominal pain, nausea, vomiting, or diarrhea. He further denies cough, focal weakness or numbness, no facial droop, and no numbness. He denies any lesions or skin issues prior to his fall. CT scan performed showed large decubitus sacral ulcer, possible osteomyelitis. MR did not show any evidence of osteomyelitis. There is no abscess notable. He was given a dose of ceftriaxone in the ER. Interval history: The patient has no complaints. Sacral ulcer debridement planned this afternoon. Exam Vital Signs (past 8 hours): - 04/14/24 10:00 04/14/24 10:00 04/14/24 10:03 Temperature 97.5 F L Pulse Rate 57 L 57 L Respiratory Rate 20 Blood Pressure 128/41 L 128/41 L Pulse Oximetry 93 93 Oxygen Delivery Method Room Air Oxygen Flow Rate 0 0 04/14/24 10:14 Temperature Pulse Rate 57 L Respiratory Rate Blood Pressure 128/41 L Pulse Oximetry Oxygen Delivery Method Oxygen Flow Rate Oxygen Delivery Method Room Air Oxygen Flow Rate 0 Narrative Exam Narrative: General:? Patient is well developed and well nourished, in no distress at this time. Extremities: No edema or joint effusions. No cyanosis or clubbing. Neuro:? Alert and orientated x3,? sensation to touch intact in all extremities, no gross deficits noted of cranial nerves. Psych:? Patient has a well-kept appearance, appropriate affect, mental status attitude thought context and judgment are appropriate for age. Objective Labs 04/14/24 05:40 04/14/24 05:40 Labs: Laboratory Results - last 24 hr 04/14/24 05:40 WBC 10.9 RBC 2.98 L Hgb 8.6 L Hct 25.3 L MCV 84.6 MCH 28.7 MCHC 33.9 RDW 15.8 H Plt Count 257 Neut % (Auto) 77.6 H Lymph % (Auto) 8.6 L [place] % (Auto) 11.0 Eos % (Auto) 2.5 Baso % (Auto) 0.3 Neut # (Auto) 8400 H Lymph # (Auto) 900 L [place] # (Auto) 1200 H Eos # (Auto) 300 Baso # (Auto) 0 PT 14.9 H INR 1.3 Sodium 135 L Potassium 4.4 Chloride 110 H Carbon Dioxide 22 BUN 35 H Creatinine 1.30 H Estimated GFR 58 L BUN/Creatinine Ratio 26.9 H Glucose 99 Calcium 8.6 Magnesium 2.2 Total Bilirubin 0.4 AST 15 L ALT 11 Alkaline Phosphatase 74 Total Protein 5.5 L Albumin 2.5 L Globulin 3.0 Albumin/Globulin Ratio 0.8 L PFSH Medical History Mixed hyperlipidemia Essential hypertension Systolic CHF, chronic Thrombophilia History of UTI Typical atrial flutter Paroxysmal atrial fibrillation 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) Aortic regurgitation BPH (benign prostatic hyperplasia) Cyst of left kidney Neoplasm of uncertain behavior of bladder Elevated PSA Iron deficiency anemia due to dietary causes Neurogenic bladder (Unknown) Neuropathy (Unknown) Encephalopathy (Unknown) Gastric ulcer (Unknown) Osteoarthritis (Unknown) Osteopenia (04/29/16) Surgical History Status post cardiac catheterization (~2020) History of colon resection Hx of shoulder surgery (Unknown) History of left hip replacement (Unknown) History of bilateral knee replacement (Unknown) Family History Mother Cancer Medical history unknown Father Medical history unknown Social History marital status: unknown household members: none occupational status: previously employed Smoking Status: Former smoker second hand exposure: No alcohol intake: never substance use type: does not use Assessment & Plan Assessment & Plan narrative: 1. Sacral decubitus ulcer, possible infection, unstageable - continue cefazolin which will also cover urinary infection. MRSA screen negative. - see images from nursing note for documentation. May be related to fall or chronically developing, unclear at this time. - continue local wound care, antibiotics for possible infection and cellulitis. - OR debridement today with possible wound vac placement. - PT / OT evaluation stopped until surgery is completed. - continue with local wound care per nursing protocols, pressure offloading at this time. 2. Acute cystitis due to pansensitive E. coli related to chronic urinary obstruction -continue cefazolin. 3. Possible mild acute on chronic diastolic heart failure - No reported symptoms, weakness could be related to above infection, or given heart possible diastolic heart failure given his previous valvular issues. - Repeat echo 04/11/2024 was unchanged from prior. - continue home medications with coreg, amlodipine, losartan bid. 4. HTN - continue home medications without change, mildly hypertensive on presentation. 5. paroxysmal atrial fibrillation -currently rate controlled -continue home coreg, amio and warfarin (after surgery) 6. supratherapeutic INR -initially 4.9 on 04/12/2024, down to 1.3 today after 10 mg PO vitamin K, no evidence of bleeding -monitor daily INR. -restart after surgery 7. BPH with chronic urinary obstruction -continue tamsulosin 8. HLD -continue statin Code status is full code. DVT prophylaxis with warfarin. Proxy is sister Deyanira. Dispo: patient admitted under inpatient status. Unclear if will be able to discharge home, likely SNF, PT/OT after surgery. Quality VTE Deep Vein Thrombosis/Pulmonary Embolism Present on Admission: No IH PROFEE Charge codes Subsequent inpatient/observation care: [id number]
--- NOTE | 2024-04-14 14:58 | P.HP_ITS ---
History of Present Illness History of Present Illness Date Patient Seen: 04/14/24 Time Patient Seen: 14:59 Chief complaint: fall, L hip injury Narrative: Josh is a 73-year-old man with congestive heart failure who presents with a new sacral decubitus ulcer. He believes this all started within the past week or two. He did have a slip and fall in his bathtub. Reports that he was able to get up and get himself out of the bathtub fairly quickly but he felt that he ?bruised? the area of his sacrum. Then last Thursday he noticed drainage from the area. He is able to move around but he has mobility issues because he has had knee replacements and hip surgery. He has a neurogenic bladder and performs self catheterization. He denies urinary incontinence. He denies fecal incontinence. 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) Aortic regurgitation BPH (benign prostatic hyperplasia) Cyst of left kidney Neoplasm of uncertain behavior of bladder Elevated PSA Iron deficiency anemia due to dietary causes Neurogenic bladder (Unknown) Neuropathy (Unknown) Encephalopathy (Unknown) Gastric ulcer (Unknown) Osteoarthritis (Unknown) Osteopenia (04/29/16) Surgical History Status post cardiac catheterization (~2020) History of colon resection Hx of shoulder surgery (Unknown) History of left hip replacement (Unknown) History of bilateral knee replacement (Unknown) Family History Mother Cancer Medical history unknown Father Medical history unknown Social History marital status: unknown household members: none occupational status: previously employed Smoking Status: Former smoker second hand exposure: No alcohol intake: never substance use type: does not use Meds Home Medications and Allergies Home Medications Medication Instructions Recorded Confirmed Type cholecalciferol (vitamin D3) 50 4,000 unit PO DAILY #0 caps 10/12/18 04/11/24 History mcg (2,000 unit) capsule (Vitamin D3) ferrous sulfate 325 mg (65 mg 325 mg PO MOTUWETHFR 12/21/18 04/11/24 History iron) tablet acetaminophen 500 mg capsule 1,000 mg PO Q6H PRN pain 02/23/19 04/11/24 History ascorbate calcium (vitamin C) 500 1,000 mg PO DAILY 12/18/20 04/11/24 History mg capsule losartan 50 mg tablet 50 mg PO BID 07/26/22 04/11/24 History atorvastatin 20 mg tablet (Lipitor) 20 mg PO BEDTIME #90 tabs 01/05/23 04/11/24 Rx amiodarone 200 mg tablet 200 mg PO DAILY 04/19/23 04/11/24 History amlodipine 2.5 mg tablet 2.5 mg PO BID #180 tabs 09/01/23 04/11/24 Rx carvedilol 25 mg tablet 25 mg PO BID 10/29/23 04/11/24 History furosemide 20 mg tablet (Lasix) 20 mg PO DAILY #30 tabs 11/12/23 04/11/24 Rx tamsulosin 0.4 mg capsule (Flomax) 0.4 mg PO DAILY #30 caps 02/01/24 04/11/24 Rx methenamine hippurate 1 gram tablet 1 g PO BID 04/11/24 04/11/24 History warfarin 3 mg tablet 2 mg PO BEDTIME 04/11/24 04/11/24 History Allergies Allergy/AdvReac Type Severity Reaction Status Date / Time ciprofloxacin Allergy Severe BREATHING Verified 10/29/23 13:03 PROBLEMS, CHILLS, SHAKES alendronate sodium AdvReac Severe GI bleed Verified 10/29/23 13:03 [ALENDRONATE SODIUM] cephalexin AdvReac Mild Headache Verified 10/29/23 13:03 morphine AdvReac Mild ABD PAIN Verified 10/29/23 13:03 Exam Vital Signs (past 8 hours): - 04/14/24 10:00 04/14/24 10:00 04/14/24 10:03 Temperature 97.5 F L Pulse Rate 57 L 57 L Respiratory Rate 20 Blood Pressure 128/41 L 128/41 L Pulse Oximetry 93 93 Oxygen Delivery Method Room Air Oxygen Flow Rate 0 0 04/14/24 10:14 04/14/24 13:00 04/14/24 14:00 Temperature 97.1 F L Pulse Rate 57 L 59 L Respiratory Rate 16 Blood Pressure 128/41 L 114/39 L Pulse Oximetry 96 94 Oxygen Delivery Method Room Air Oxygen Flow Rate 0 0 Oxygen Delivery Method Room Air Oxygen Flow Rate 0 Narrative Exam Narrative: There is a 5 x 6 cm malodorous eschar over the sacrum consistent with a full- thickness sacral decubitus ulcer Objective Labs 04/14/24 05:40 04/14/24 05:40 Labs: Laboratory Results - last 24 hr 04/14/24 05:40 WBC 10.9 RBC 2.98 L Hgb 8.6 L Hct 25.3 L MCV 84.6 MCH 28.7 MCHC 33.9 RDW 15.8 H Plt Count 257 Neut % (Auto) 77.6 H Lymph % (Auto) 8.6 L Sabine % (Auto) 11.0 Eos % (Auto) 2.5 Baso % (Auto) 0.3 Neut # (Auto) 8400 H Lymph # (Auto) 900 L Sabine # (Auto) 1200 H Eos # (Auto) 300 Baso # (Auto) 0 PT 14.9 H INR 1.3 Sodium 135 L Potassium 4.4 Chloride 110 H Carbon Dioxide 22 BUN 35 H Creatinine 1.30 H Estimated GFR 58 L BUN/Creatinine Ratio 26.9 H Glucose 99 Calcium 8.6 Magnesium 2.2 Total Bilirubin 0.4 AST 15 L ALT 11 Alkaline Phosphatase 74 Total Protein 5.5 L Albumin 2.5 L Globulin 3.0 Albumin/Globulin Ratio 0.8 L Assessment & Plan Assessment and plan (1) Sacral decubitus ulcer: Qualifiers: Pressure injury stage: unspecified pressure injury stage Qualified Code(s): L89.159 - Pressure ulcer of sacral region, unspecified stage Status: Acute Plan Luis is a 73-year-old man with a full-thickness sacral decubitus ulceration. I explained to him that these wounds can be quite challenging to heal. I recommend debridement in the operating room under anesthesia. We will pack the wound and he was can have local wound care for the next several weeks at least. Over time we will determine if wound is going to close on its own with local wound care or if he will need a more invasive procedure to get closure. We should have a wound care consultation while he was here in the hospital. We will need to continue with strict offloading as well as nutritional support to help with wound healing. Time-Based Coding :: [TOTAL MINUTES] spent with patient and on the chart (including review of chart, obtaining history, exam, reviewing outside data, placing orders, documenting exam and treatment plan, and counseling patient) on [DATE]. Quality VTE Deep Vein Thrombosis/Pulmonary Embolism Present on Admission: No
--- NOTE | 2024-04-14 15:23 | SUR.OPER ---
Prone on padded OR bed, head in foam head support, gel chest rolls, gel pad under knees, pillow under lower legs, toes free of pressure, arms secured on padded arm boards at <90 degrees abduction. Safety belt at thigh.
[2024-04-14] MEDS: BUPIVACAINE LIPOSOME 266 MG/20 ML VIAL INJ (16:04)
--- NOTE | 2024-04-14 16:48 | PM.OP.1 ---
Operative Date/Time/Diagnoses Date of procedure: 04/14/24 Time of procedure: 16:49 Pre-op diagnosis: Sacral decubitus ulcer Post-op diagnosis: same Procedure & Clinicians Procedure: Excision of sacral decubitus ulcer Application of negative pressure therapy wound VAC Same procedure as scheduled: Yes Surgeon: Isael Buckley Anesthesia Type: General Operative Notes Procedure in detail: The patient is a 73-year-old man who presented with a full-thickness sacral decubitus ulcer. He was consented for debridement in the OR. The patient was brought to the operating room and general endotracheal anesthesia was induced. He was placed in the prone ayo-knife position. The buttocks were taped apart. The sacrum was prepped and draped in the usual fashion and a time-out was performed. Initial inspection demonstrated a necrotic eschar over the sacrum that measured a proximally 6 cm by 6 cm. There was also an area of de-epithelialized skin extending inferiorly on the right side. We excised the necrotic skin. There was necrotic liquified tissue extending down to the periosteum over the sacrum. There was undermining primarily in the superior and inferior directions but also slightly in the left and right directions. Live skin was excised to eliminate the undermining. The new wound measured 7 cm x 10 cm. A few segments of necrotic periosteum were sent for micro. Hemostasis was achieved through cautery and a single 3-0 Vicryl stitch into the muscle of the right gluteus kate. A wound VAC was applied. EBL: 50 mL Post-operative Condition: stable Disposition: PACU
[2024-04-14] MEDS: LACTATED RINGERS 1,000 ML 42 ML IV (17:57)
[2024-04-14 20:26] LABS: Hemoglobin 8.1 g/dL (13.5-17.5)
[2024-04-14] MEDS: ATORVASTATIN 20 MG TABLET PO (20:53)
[2024-04-14] MEDS: WARFARIN 1 MG TABLET 2 MG PO (20:53)
[2024-04-14] MEDS: CEFAZOLIN VIAL 1 GM in SODIUM CHLORIDE 0.9% 100 ML IV (20:53)
--- NOTE | 2024-04-14 22:02 | PC.NURSE ---
Addendum entered by Shreya Rodriges R.N. 04/15/24 02:46: 1 unit PRBC's ordered & given, no adverse reactions noted. Original Note: shift mgr: Patient is AxOx4, hypotensive (see documentation), SpO2 94% on 1.5L NC, patient appears pale. Denies SOB, CP, dizziness, although is tired and has not gotten OOB since procedure. Wound vac draining sanguinous drainage. Notified MD Rod of assessment, H/H ordered.
[2024-04-15] VITALS (14 sets, daily range): BP systolic 105–160; BP diastolic 34–82; PULSE 54–89; RESP 16–18; TEMP 36.4–37.1; O2SAT 90–96
[2024-04-15] MEDS: CEFAZOLIN VIAL 1 GM in SODIUM CHLORIDE 0.9% 100 ML IV ×3 (04:24→20:51)
[2024-04-15 05:57] LABS: Hemoglobin 8.8 g/dL (13.5-17.5); Mean Corpuscular HGB Conc 34.1 % (30-36); Mean Corpuscular Hemoglobin 29.1 PG (26-34); Mean Corpuscular Volume 85.3 fL (80-100); Platelet Count 265 X10^3/uL (150-400); Red Blood Cell Count 3.04 X10^6/uL (4.5-5.9); Red Cell Distribution Width 15.9 % (11.6-14.8); White Blood Cell Count 10.4 X10^3/uL (4.5-11.0)
[2024-04-15 06:05] LABS: INR 1.3 (0.9-1.3); Prothrombin Time 15.4 SECONDS (9.4-12.5)
[2024-04-15] MEDS: ACETAMINOPHEN 325 MG TABLET 650 MG PO ×2 (06:05→17:15)
[2024-04-15] MEDS: OXYCODONE IR 5 MG TABLET PO ×4 (06:06→21:00)
[2024-04-15 06:10] LABS: BUN Creatinine Ratio 29.9 (6-22); Blood Urea Nitrogen 29 mg/dL (9-20); Calcium 8.5 mg/dL (8.4-10.2); Carbon Dioxide 25 mmol/L (22-32); Chloride 109 mmol/L (98-107); Estimated Glomerular Filt Rate > 60 mL/min (>60); Glucose 87 mg/dL (80-110); HEMOLYSIS < 15 (0-50); Potassium 4.6 mmol/L (3.4-5.1); Sodium 136 mmol/L (137-145)
--- NOTE | 2024-04-15 07:37 | P.PN_ITS ---
Subjective Subjective Date Patient Seen: 04/15/24 Time Patient Seen: 13:20 Interval history: 73 M PMH of paroxysmal atrial fibrillation on warfarin, dilated cardiomyopathy, mod-severe AR, hypertension, hyperlipidemia, neurogenic bladder with daily self- cath, BPH, and AAA who presented with left hip pain after a fall on thursday. He was sitting on the side of his tub and fell on to his buttocks. He has had continued pain, difficulty ambulating. He came in today with continued pain and drainage noted from the area. He denies recent shortness of breath, fever, abdominal pain, nausea, vomiting, or diarrhea. He further denies cough, focal weakness or numbness, no facial droop, and no numbness. He denies any lesions or skin issues prior to his fall. CT scan performed showed large decubitus sacral ulcer, possible osteomyelitis. MR did not show any evidence of osteomyelitis. There is no abscess notable. He was given a dose of ceftriaxone in the ER. Interval history: The patient reports feeling better status post debridement yesterday. No complaints. Exam Vital Signs (past 8 hours): - 04/14/24 23:57 04/15/24 00:15 04/15/24 02:00 Temperature 97.2 F L 98.4 F Pulse Rate 63 63 Respiratory Rate 16 16 Blood Pressure 118/44 L 122/42 L Pulse Oximetry 93 Oxygen Delivery Method Room Air Oxygen Flow Rate 04/15/24 02:38 04/15/24 06:00 04/15/24 06:07 Temperature 98.5 F 97.5 F L Pulse Rate 60 60 Respiratory Rate 16 18 Blood Pressure 130/44 L 142/45 H Pulse Oximetry 94 96 Oxygen Delivery Method Nasal Cannula Oxygen Flow Rate 2 2 Oxygen Delivery Method Nasal Cannula Oxygen Flow Rate 2 Narrative Exam Narrative: General:? Patient is well developed and well nourished, in no distress at this time. Extremities: No edema or joint effusions. No cyanosis or clubbing. Skin: CT surgery and nursing notes. Neuro:? Alert and orientated x3,? sensation to touch intact in all extremities, no gross deficits noted of cranial nerves. Psych:? Patient has a well-kept appearance, appropriate affect, mental status attitude thought context and judgment are appropriate for age. Objective Labs 04/15/24 05:40 04/15/24 05:40 Labs: Laboratory Results - last 24 hr 04/14/24 04/14/24 04/15/24 20:19 22:45 05:40 WBC 10.4 RBC 3.04 L Hgb 8.1 L 8.8 L Hct 24.0 L 26.0 L MCV 85.3 MCH 29.1 MCHC 34.1 RDW 15.9 H Plt Count 265 PT 15.4 H INR 1.3 Sodium 136 L Potassium 4.6 Chloride 109 H Carbon Dioxide 25 BUN 29 H Creatinine 0.97 Estimated GFR > 60 BUN/Creatinine Ratio 29.9 H Glucose 87 Calcium 8.5 Blood Type A Negative Antibody Screen Negative Crossmatch See Detail [facility] Medical History Mixed hyperlipidemia Essential hypertension Systolic CHF, chronic Thrombophilia History of UTI Typical atrial flutter Paroxysmal atrial fibrillation 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) Aortic regurgitation BPH (benign prostatic hyperplasia) Cyst of left kidney Neoplasm of uncertain behavior of bladder Elevated PSA Iron deficiency anemia due to dietary causes Neurogenic bladder (Unknown) Neuropathy (Unknown) Encephalopathy (Unknown) Gastric ulcer (Unknown) Osteoarthritis (Unknown) Osteopenia (04/29/16) Surgical History Status post cardiac catheterization (~2020) History of colon resection Hx of shoulder surgery (Unknown) History of left hip replacement (Unknown) History of bilateral knee replacement (Unknown) Family History Mother Cancer Medical history unknown Father Medical history unknown Social History marital status: unknown household members: none occupational status: previously employed Smoking Status: Former smoker second hand exposure: No alcohol intake: never substance use type: does not use Assessment & Plan Assessment & Plan narrative: 1. Sacral decubitus ulcer, possible infection, unstageable - continue cefazolin which will also cover urinary infection. MRSA screen negative. - see images from nursing note for documentation. May be related to fall or chronically developing, unclear at this time. - continue local wound care, antibiotics for possible infection and cellulitis. - OR debridement 04/15/2024 with wound vac placement. - PT / OT evaluation to restart today. - continue with local wound care per nursing protocols, pressure offloading at this time. 2. Acute cystitis due to pansensitive E. coli related to chronic urinary obstruction -continue cefazolin. 3. Possible mild acute on chronic diastolic heart failure - No reported symptoms, weakness could be related to above infection, or given heart possible diastolic heart failure given his previous valvular issues. - Repeat echo 04/11/2024 was unchanged from prior. - continue home medications with coreg, amlodipine, losartan bid. 4. HTN - continue home medications without change, mildly hypertensive on presentation. 5. paroxysmal atrial fibrillation -currently rate controlled -continue home coreg, amio and warfarin (after surgery) 6. supratherapeutic INR -initially 4.9 on 04/12/2024, down to 1.3 after 10 mg PO vitamin K, no evidence of bleeding -monitor daily INR. -restart warfarin postoperatively per pharmacy protocol 7. BPH with chronic urinary obstruction -continue tamsulosin 8. HLD -continue statin Code status is full code. DVT prophylaxis with warfarin. Proxy is sister Deyanira. Dispo: patient admitted under inpatient status. Likely SNF, PT/OT after surgery. Time-Based Coding :: [TOTAL MINUTES] spent with patient and on the chart (including review of chart, obtaining history, exam, reviewing outside data, placing orders, documenting exam and treatment plan, and counseling patient) on [DATE]. Quality VTE Deep Vein Thrombosis/Pulmonary Embolism Present on Admission: No PROFEE Charge codes Subsequent inpatient/observation care: [id number]
[2024-04-15] MEDS: LOSARTAN 50 MG TABLET PO ×2 (08:59→20:54)
[2024-04-15] MEDS: CHOLECALCIFEROL (VITAMIN D3) 1,000 UNIT TABLET 4000 UNIT PO (08:59)
[2024-04-15] MEDS: carvediloL 12.5 MG TABLET 25 MG PO ×2 (09:00→20:53)
[2024-04-15] MEDS: AMIODARONE 200 MG TABLET PO (09:00)
[2024-04-15] MEDS: AMLODIPINE 5 MG TABLET 2.5 MG PO ×2 (09:00→20:51)
[2024-04-15] MEDS: ASCORBIC ACID 500 MG TABLET 1000 MG PO (09:00)
[2024-04-15] MEDS: TAMSULOSIN 0.4 MG CAPSULE PO (09:00)
[2024-04-15] MEDS: FUROSEMIDE 20 MG TABLET PO (09:01)
[2024-04-15] MEDS: SODIUM CHLORIDE 0.9% FLUSH 10 ML IV (09:01)
--- NOTE | 2024-04-15 11:08 | DIET.PN1 ---
Dietary Progress Note Assessment: Met w/ pt at bedside. Reports good appetite, tolerating Ensure and Richie. Will continue to provide. DFM reviewed. Meeting estimated protein needs. Ht: 175.26 cm Wt: 68.492 kg BMI: 22.3 Last BM: 04/10/24 (04/14/24 14:59) MNA: 11 Fransisco Score: 21 Diet: 04/14/24 Dinner General (Regular) Diet Diet Modifications: Food Texture: Level 7 - Regular Liquid Consistency: Level 0 - Thin Nutrition Percent Meal Consumed 100% 04/15/24 09:02 Percent Meal Consumed 75% 04/14/24 18:00 Percent Meal Consumed 100% 04/13/24 18:00 Percent Meal Consumed 100% 04/13/24 12:55 Labs: RBC 3.04 X10^6/uL (4.5-5.9) L 04/15/24 05:40 Hgb 8.8 g/dL (13.5-17.5) L 04/15/24 05:40 Hct 26.0 % (41-53) L 04/15/24 05:40 Creatinine 0.97 mg/dL (0.66-1.25) 04/15/24 05:40 Lactate 1.5 mmol/L (0.7-2.1) 04/11/24 10:35 Electronically Signed by: Jie Castro 04/15/24 11:08 Clinical Dietitian [address] [id number]
--- NOTE | 2024-04-15 13:18 | CM.DPC ---
Addendum entered by CARMINE Young 04/15/24 14:55: DCP spoke with Michelle at [facility], they are now aware of the consult placed for inpatient woundcare. Per Michelle, if wound vac is placed, there are no other interventions to be completed at this time until follow up, post-discharge. DENICE Tracey Original Note: DCP Continued: Reviewed EMR and team rounds for pt?s medical status. Per rounds, pt anticipated to work with PT/OT today for evaluation and recommendations. DCP discussed pt with [facility], they are reviewing, acceptance pending PT/OT evaluations and bed availability. DCP completed PASSR, placed with facesheet. DCP inquired with [facility] if pt will be on their caseload for ongoing treatment with woundvac, DCP left a voice message. Plan: Pending PT/OT evaluations for referral, anticipating discharge to [facility]. CM Team will continue to follow for coordination of discharge plans. DENICE Tracey
--- NOTE | 2024-04-15 14:40 | PT.IIE ---
Current Diagnoses Pressure ulcer of sacral region, unspecified stage (04/11/24) Surgery Performed Operation Date: 04/14/24 15:30 Actual Procedures p Incision and Drainage Debride Sacral Decubitus - Isael Buckley MD Surgical History (Last Reviewed 04/11/24 @ 17:03 by Lonnie Shaw DO) History of bilateral knee replacement (Unknown) History of colon resection History of left hip replacement (Unknown) Hx of shoulder surgery (Unknown) Status post cardiac catheterization (~2020) Medical History (Last Reviewed 04/11/24 @ 17:03 by Lonnie Shaw DO) Aortic regurgitation BPH (benign prostatic hyperplasia) Cyst of left kidney Elevated PSA Encephalopathy (Unknown) Essential hypertension Gastric ulcer (Unknown) History of UTI Iron deficiency anemia due to dietary causes Mixed hyperlipidemia Neoplasm of uncertain behavior of bladder Neurogenic bladder (Unknown) Neuropathy (Unknown) Osteoarthritis (Unknown) Osteopenia (04/29/16) Paroxysmal atrial fibrillation 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) Systolic CHF, chronic Thrombophilia Typical atrial flutter Physical Therapy Inpatient Evaluation/Re-Eval M1 PT/OT-IP Prior Functional Status Start: 04/12/24 07:47 Freq: NEEDED Status: Active Protocol: Document 04/15/24 14:40 AB (Rec: 04/15/24 16:55 AB [id number]) Medical Review Prior Functional Status Medical History Reviewed Yes Communication able to make needs known Mobility and Gait pt stated that he was modified independent with all mobilities and ambulation using B axillary crutches; pt stated that BLE are weak due to previous hip and knee replacements Social History Household Members none Living Arrangements Apartment/Condo Number of Floors (Floors) One Floor Number of Stairs To Enter/Railing? no steps to enter Home Environment Standard Height Toilet,Tub/ Shower Home Equipment Crutches,Grab Bars In Shower M2 PT-IP Current Condition Start: 04/12/24 07:47 Freq: NEEDED Status: Active Protocol: Document 04/15/24 14:40 AB (Rec: 04/15/24 16:55 AB [id number]) Physical Therapy Current Condition Current Condition Evaluation Date 04/15/24 Treatment Diagnosis sacral decubitus ulcer excision; difficulty in walking Onset Date 04/11/24 M3 PT-IP Subjective Start: 04/12/24 07:47 Freq: NEEDED Status: Active Protocol: Document 04/15/24 14:40 AB (Rec: 04/15/24 16:55 AB [id number]) Subjective Physical Therapy Visit Type Type Initial Evaluation Visit Start Time 14:40 Visit Stop Time 15:20 Number of COST REDUCTION ENGINEER Visits 0 Physical Therapy Visit Comments Patient Comments agreeable to do PT Therapy Pain Assessment Pain When Pain Assessed At Rest Pain Present Pain Present Pain Reported Location Sacrum Intensity 9 Scale Used Numeric (0 - 10) Pain Management Techniques Distraction,Modification of Treatment,Re-positioning, Timing of Activity with Medications M4 PT-IP Mobility and Gait Start: 04/12/24 07:47 Freq: NEEDED Status: Active Protocol: Document 04/15/24 14:40 AB (Rec: 04/15/24 16:55 AB [id number]) PT-Bed Mobility Assessment Supine to Sit Supine to Sit Maximum Assistance,1 Person Assistance,Head of Bed Elevated,Bedrails Scooting Scooting to Edge of Bed Maximum Assistance PT-Transfer Assessment Sit to and From Stand Sit to and from Stand Maximum Assistance,1 Person Assistance,2 Person Assistance ,Use of Upper Extremities Equipment Transfer Assistive Device Gait Belt,Front Wheeled Walker Orthotic/Prosthetic Devices or Brace: No Transfers Transfer Destination Chair Transfer Technique Stand Step Pivot Transfer Ability Level of Assist Maximum Assistance,1 Person Assistance,Use of Upper Extremities Comments Mobility Comments pt supiine in bed and agreeable to do PT. obtained PLOF and home set up from pt. pt completed supine to sit max A and max cues. HOB elevated and pt used bed rail to assist. pt able to sit on EOB CGA. completed sit to stand x 2 attempts to stand max A x 1-2 and max cues. pt took a few steps but was only able to transfer to chair using FWW max A x 1-2 and max cues. unable to ambulate. positioned pt on the chair. call light and table placed next to pt. Gait Assessment Comments Gait Comments able to take a few steps during transfer using FWW max A x 1-2 and max cues PT-Balance Assessment Sitting Balance and Reactions Static Sitting Balance Ability Fair Dynamic Sitting Balance Ability Fair Standing Balance and Reactions Static Standing Balance Ability Poor Dynamic Standing Balance Ability Poor Device Used FWW M5 PT-IP Objective Assessments Start: 04/12/24 07:47 Freq: NEEDED Status: Active Protocol: Document 04/15/24 14:40 AB (Rec: 04/15/24 16:55 AB [id number]) Orientation Orientation/Cognition Level of Alertness Alert Orientation Name,Place,Situation Language Function Ability Hard of Hearing Safety Awareness Decreased Safety Awareness Memory Description Short Term Impaired Gross Range of Motion Lower Extremity ROM Assessment Within Functional Limits Strength Lower Extremity Strength Assessment Bilaterally Impaired Hip 3+/5 Knee 3+/5 Comments Strength Comments LLE slightly stronger than LLE Muscle Tone Muscle Tone WNL Yes M6 PT-IP Treatment Start: 04/12/24 07:47 Freq: NEEDED Status: Active Protocol: Document 04/15/24 14:40 AB (Rec: 04/15/24 16:55 AB [id number]) Physical Therapy Treatment Education Education Provided Safety M7 PT-IP Assessment and Plan Start: 04/12/24 07:47 Freq: NEEDED Status: Active Protocol: Document 04/15/24 14:40 AB (Rec: 04/15/24 16:55 AB [id number]) PT Summary Assessment and Plan Potential Rehabilitation Potential Fair Status of Condition at Evaluation Evolving Summary Impairments Pain,ROM,Strength,Balance, Coordination,Sensation,Tone, Cognition,Bed Mobility, Transfers,Gait,Activity Tolerance Assessment Summary pt is a 73 y/o M s/p fall and developed a sacral ulcer. pt underwent sacral decubitus ulcer excision and wound vac placement POD 1. pt requiring max A x 1-2 for transfers using FWW and unable to ambulate at this time but able to take steps during transfer using fWW max A x 1-2 and max cues. pt will require SNF rehab to improve mobility. Goals Bed Mobility Goal Minimal Assistance Transfer Goal Minimal Assistance,Front Wheeled Walker Gait Goal Minimal Assistance,Front Wheel Walker Gait Distance 25 Other Goals improve bed mobility, transfers and ambulation usign LRAD ~ 100 ft SBA Days to Meet Goals 10 Frequency of Treatment Frequency Of Treatment Once a Day Treatment Plan Physical Therapy Treatment Plan Bed Mobility Training,Transfer Training,Gait Training, Therapeutic Exercise,Balance Retraining,Post Op Education, Discharge Planning,Hot or Cold Pack,Neuromuscular Re-ed, Coordination Retraining,Manual Therapy Precautions Other Precautions falls Recommendations To Nursing Amount of Assist Needed 2 Person Assist Discharge Recommendations PT Discharge Recommendations SNF Rehab Transportation Needs at Discharge Wheelchair/Cabulance
--- NOTE | 2024-04-15 16:31 | OT.IPNOTE ---
Pt just completed PT eval and asleep. Not seen.
[2024-04-15] MEDS: WARFARIN 1 MG TABLET 4 MG PO (17:11)
[2024-04-15] MEDS: FERROUS SULFATE 325 MG TABLET PO (17:11)
[2024-04-15] MEDS: ATORVASTATIN 20 MG TABLET PO (20:53)
[2024-04-16] VITALS (11 sets, daily range): BP systolic 103–166; BP diastolic 38–78; PULSE 63–90; RESP 12–18; TEMP 36.3–37.1; O2SAT 92–95
[2024-04-16] MEDS: CEFAZOLIN VIAL 1 GM in SODIUM CHLORIDE 0.9% 100 ML IV ×3 (05:01→21:15)
[2024-04-16] MEDS: OXYCODONE IR 5 MG TABLET PO ×2 (05:08→21:26)
[2024-04-16 06:59] LABS: INR 1.3 (0.9-1.3); Prothrombin Time 15.1 SECONDS (9.4-12.5)
--- NOTE | 2024-04-16 08:14 | PC.NURSE ---
Addendum entered by Matilda Levine R.N. 04/16/24 11:06: Patients blood pressure consistently in the 120s/40s, all blood pressure medications given per Dr. Yadav. Patient is doing well. Original Note: Patients wound vac detected a leak, rolled patient on his side and he had an xs bowel movement on his brief, and a corner of the wound vac dressing was coming off. New tegaderm applied to ulcer site with wound vac, and it is suctioning well now and working correctly. New pad and brief placed and patient is getting ready to eat his breakfast.
[2024-04-16] MEDS: CHOLECALCIFEROL (VITAMIN D3) 1,000 UNIT TABLET 4000 UNIT PO (08:48)
[2024-04-16] MEDS: AMLODIPINE 5 MG TABLET 2.5 MG PO ×2 (08:49→21:18)
[2024-04-16] MEDS: ASCORBIC ACID 500 MG TABLET 1000 MG PO (08:49)
[2024-04-16] MEDS: TAMSULOSIN 0.4 MG CAPSULE PO (08:50)
[2024-04-16] MEDS: FUROSEMIDE 20 MG TABLET PO (08:50)
--- NOTE | 2024-04-16 09:18 | P.PN_ITS ---
Subjective Subjective Date Patient Seen: 04/16/24 Time Patient Seen: 09:18 Exam Vital Signs (past 8 hours): - 04/16/24 02:00 04/16/24 04:00 04/16/24 06:00 Temperature 98.8 F Pulse Rate 86 Respiratory Rate 18 Blood Pressure 118/74 Pulse Oximetry 94 94 94 Oxygen Delivery Method Room Air Room Air Oxygen Flow Rate 0 Oxygen Delivery Method Room Air Oxygen Flow Rate 0 Narrative Exam Narrative: Wound vac on, good seal (after RN had to reinforce it this morning, due to leak), I told him (since he got Coumadin last night..) If INR tomorrow will be 1.3 or less, will take him to surgery tomorrow for Re-debridement, and re- application of wound vac. 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) Aortic regurgitation BPH (benign prostatic hyperplasia) Cyst of left kidney Neoplasm of uncertain behavior of bladder Elevated PSA Iron deficiency anemia due to dietary causes Neurogenic bladder (Unknown) Neuropathy (Unknown) Encephalopathy (Unknown) Gastric ulcer (Unknown) Osteoarthritis (Unknown) Osteopenia (04/29/16) Surgical History Status post cardiac catheterization (~2020) History of colon resection Hx of shoulder surgery (Unknown) History of left hip replacement (Unknown) History of bilateral knee replacement (Unknown) Family History Mother Cancer Medical history unknown Father Medical history unknown Social History marital status: unknown household members: none occupational status: previously employed Smoking Status: Former smoker second hand exposure: No alcohol intake: never substance use type: does not use Assessment & Plan Assessment and plan (1) Sacral decubitus ulcer: Problem details: Wound vac on, good seal (after RN had to reinforce it this morning, due to leak), I told him (since he got Coumadin last night..) If INR tomorrow will be 1.3 or less, will take him to surgery tomorrow for Re-debridement, and re- application of wound vac. Qualifiers: Pressure injury stage: unspecified pressure injury stage Qualified Code(s): L89.159 - Pressure ulcer of sacral region, unspecified stage Status: Acute (2) History of UTI: Status: Acute (3) Cellulitis: Status: Acute Time-Based Coding :: [TOTAL MINUTES] spent with patient and on the chart (including review of chart, obtaining history, exam, reviewing outside data, placing orders, documenting exam and treatment plan, and counseling patient) on [DATE]. Quality VTE Deep Vein Thrombosis/Pulmonary Embolism Present on Admission: No
[2024-04-16] MEDS: AMIODARONE 200 MG TABLET PO (10:49)
[2024-04-16] MEDS: carvediloL 12.5 MG TABLET 25 MG PO ×2 (10:49→21:17)
[2024-04-16] MEDS: LOSARTAN 50 MG TABLET PO ×2 (10:49→21:16)
--- NOTE | 2024-04-16 13:19 | CM.DPC ---
DCP SNF Planning: Per Surgeon, plan is OR tomorrow Sun for further I&D and not yet medically stable to discharge yet today. SW spoke to [facility] admissions and they may have a male bed opening up in a couple days on this coming week and will review pt now. KORY spoke to Tina at [facility] and she will continue to review but wants to wait to see if osteomyelitis is ruled out and might not be able to meet his needs but will follow for now. KORY confirmed with [facility] that they have a couple rehab beds available and KORY secure emailed Heidi the referral for review. May not have an answer until Thursday. PASRR previously completed in anticipation of SNF. Plan: SW to follow closely for [facility], [facility], and [facility] review to confirm if any can accept and to initiate [facility] auth for SNF. CARMINE Jon
--- NOTE | 2024-04-16 13:29 | PT.IPTN ---
Current Diagnoses Cellulitis, unspecified (04/11/24) Pressure ulcer of sacral region, unspecified stage (04/11/24) Personal history of urinary (tract) infections (04/11/24) Surgery Performed Operation Date: 04/14/24 15:30 Actual Procedures p Incision and Drainage Debride Sacral Decubitus - Isael Buckley MD Physical Therapy Treatment Note M2 PT-IP Current Condition Start: 04/12/24 07:47 Freq: NEEDED Status: Active Protocol: Document 04/15/24 14:40 AB (Rec: 04/15/24 16:55 AB [id number]) Physical Therapy Current Condition Current Condition Evaluation Date 04/15/24 Treatment Diagnosis sacral decubitus ulcer excision; difficulty in walking Onset Date 04/11/24 M3 PT-IP Subjective Start: 04/12/24 07:47 Freq: NEEDED Status: Active Protocol: Document 04/16/24 13:48 TS (Rec: 04/16/24 13:54 TS [id number]) Subjective Physical Therapy Visit Type Type Treatment Note Visit Start Time 13:29 Visit Stop Time 13:47 Number of SHOE STITCHER ODD Visits 1 Physical Therapy Visit Comments Patient Comments Pt found resting in bed, he is agreeable to PT. Therapy Pain Assessment Pain When Pain Assessed At Rest Pain Present Pain Present Pain Reported M4 PT-IP Mobility and Gait Start: 04/12/24 07:47 Freq: NEEDED Status: Active Protocol: Document 04/16/24 13:48 TS (Rec: 04/16/24 13:54 TS [id number]) PT-Bed Mobility Assessment Supine to Sit Supine to Sit Moderate Assistance,1 Person Assistance,Head of Bed Elevated,Bedrails Scooting Scooting to Edge of Bed Minimal Assistance PT-Transfer Assessment Sit to and From Stand Sit to and from Stand Maximum Assistance,1 Person Assistance,Use of Upper Extremities Equipment Transfer Assistive Device Gait Belt,Front Wheeled Walker Orthotic/Prosthetic Devices or Brace: No Transfers Transfer Destination Chair Transfer Technique Stand Step Pivot Transfer Ability Level of Assist Maximum Assistance,1 Person Assistance,Use of Upper Extremities Comments Mobility Comments Supine to sit ModA for LE's and uprighting trunk. He scoots EOB Felicia with support for balance. STS with FWW x2, pt has difficulty with TKE. Step pivot to chair ModA with use of FWW, pt has a psoterior lean and soft knees. Pt was left up in the chair, all needs met. Gait Assessment Comments Gait Comments Stand step pivot PT-Balance Assessment Sitting Balance and Reactions Static Sitting Balance Ability Fair Dynamic Sitting Balance Ability Fair Standing Balance and Reactions Static Standing Balance Ability Poor Dynamic Standing Balance Ability Poor Device Used FWW M5 PT-IP Objective Assessments Start: 04/12/24 07:47 Freq: NEEDED Status: Active Protocol: Document 04/15/24 14:40 AB (Rec: 04/15/24 16:55 AB [id number]) Orientation Orientation/Cognition Level of Alertness Alert Orientation Name,Place,Situation Language Function Ability Hard of Hearing Safety Awareness Decreased Safety Awareness Memory Description Short Term Impaired Gross Range of Motion Lower Extremity ROM Assessment Within Functional Limits Strength Lower Extremity Strength Assessment Bilaterally Impaired Hip 3+/5 Knee 3+/5 Comments Strength Comments LLE slightly stronger than LLE Muscle Tone Muscle Tone WNL Yes M6 PT-IP Treatment Start: 04/12/24 07:47 Freq: NEEDED Status: Active Protocol: Document 04/16/24 13:48 TS (Rec: 04/16/24 13:54 TS [id number]) Physical Therapy Treatment Education Education Provided Safety M7 PT-IP Assessment and Plan Start: 04/12/24 07:47 Freq: NEEDED Status: Active Protocol: Document 04/16/24 13:48 TS (Rec: 04/16/24 13:54 TS [id number]) PT Summary Assessment and Plan Potential Rehabilitation Potential Fair Summary Impairments Pain,ROM,Strength,Balance, Coordination,Sensation,Tone, Cognition,Bed Mobility, Transfers,Gait,Activity Tolerance Progress Towards Goals Slow Progress due to Pain,Slow Progress due to Activity Tolerance Assessment Summary Pt continues to make slow progress with his mobility. He requires ModA for bed mobility and MaxA for STS. He continues to transfer to the chair with a stand step pivot. He is usnteady with transfer to the chair due to poor standing balance. Pt has diffiuclty with full TKE and has a posterior lean. PT is recommending SNF. Goals Bed Mobility Goal Minimal Assistance Transfer Goal Minimal Assistance,Front Wheeled Walker Gait Goal Minimal Assistance,Front Wheel Walker Gait Distance 25 Other Goals improve bed mobility, transfers and ambulation usign LRAD ~ 100 ft SBA Days to Meet Goals 10 Frequency of Treatment Frequency Of Treatment Once a Day Treatment Plan Physical Therapy Treatment Plan Bed Mobility Training,Transfer Training,Gait Training, Therapeutic Exercise,Balance Retraining,Post Op Education, Discharge Planning,Hot or Cold Pack,Neuromuscular Re-ed, Coordination Retraining,Manual Therapy Precautions Other Precautions falls Recommendations To Nursing Amount of Assist Needed 2 Person Assist Discharge Recommendations PT Discharge Recommendations SNF Rehab Transportation Needs at Discharge Wheelchair/Cabulance
--- NOTE | 2024-04-16 13:42 | P.PN_ITS ---
Subjective Subjective Date Patient Seen: 04/16/24 Time Patient Seen: 10:45 Interval history: 73 M PMH of paroxysmal atrial fibrillation on warfarin, dilated cardiomyopathy, mod-severe AR, hypertension, hyperlipidemia, neurogenic bladder with daily self- cath, BPH, and AAA who presented with left hip pain after a fall on thursday. He was sitting on the side of his tub and fell on to his buttocks. He has had continued pain, difficulty ambulating. He came in today with continued pain and drainage noted from the area. He denies recent shortness of breath, fever, abdominal pain, nausea, vomiting, or diarrhea. He further denies cough, focal weakness or numbness, no facial droop, and no numbness. He denies any lesions or skin issues prior to his fall. CT scan performed showed large decubitus sacral ulcer, possible osteomyelitis. MR did not show any evidence of osteomyelitis. There is no abscess notable. He was given a dose of ceftriaxone in the ER. Interval history: The patient has no complaints today. Warfarin is held in anticipation of repeat debridement tomorrow per surgery. Exam Vital Signs (past 8 hours): - 04/16/24 06:00 04/16/24 10:13 Pulse Oximetry 94 Oxygen Delivery Method Room Air Room Air Oxygen Delivery Method Room Air Oxygen Flow Rate 0 Narrative Exam Narrative: General:? Patient is well developed and well nourished, in no distress at this time. Extremities: No edema or joint effusions. No cyanosis or clubbing. Skin: See surgery and nursing notes. Neuro:? Alert and orientated x3,? sensation to touch intact in all extremities, no gross deficits noted of cranial nerves. Psych:? Patient has a well-kept appearance, appropriate affect, mental status attitude thought context and judgment are appropriate for age. 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) Aortic regurgitation BPH (benign prostatic hyperplasia) Cyst of left kidney Neoplasm of uncertain behavior of bladder Elevated PSA Iron deficiency anemia due to dietary causes Neurogenic bladder (Unknown) Neuropathy (Unknown) Encephalopathy (Unknown) Gastric ulcer (Unknown) Osteoarthritis (Unknown) Osteopenia (04/29/16) Surgical History Status post cardiac catheterization (~2020) History of colon resection Hx of shoulder surgery (Unknown) History of left hip replacement (Unknown) History of bilateral knee replacement (Unknown) Family History Mother Cancer Medical history unknown Father Medical history unknown Social History marital status: unknown household members: none occupational status: previously employed Smoking Status: Former smoker second hand exposure: No alcohol intake: never substance use type: does not use Assessment & Plan Assessment & Plan narrative: 1. Sacral decubitus ulcer, possible infection, unstageable - continue cefazolin which will also cover urinary infection. MRSA screen negative. - see images from nursing note for documentation. May be related to fall or chronically developing, unclear at this time. - continue local wound care, antibiotics for possible infection and cellulitis. - OR debridement 04/15/2024 with wound vac placement, with repeat OR debridement planned 04/17/2024. - PT / OT 2. Acute cystitis due to pansensitive E. coli related to chronic urinary obstruction -continue cefazolin. 3. Possible mild acute on chronic diastolic heart failure - No reported symptoms, weakness could be related to above infection, or given heart possible diastolic heart failure given his previous valvular issues. - Repeat echo 04/11/2024 was unchanged from prior. - continue home medications with coreg, amlodipine, losartan bid. 4. HTN - continue home medications without change, mildly hypertensive on presentation. 5. paroxysmal atrial fibrillation -currently rate controlled -continue home coreg, amio and warfarin (after surgery) 6. supratherapeutic INR -initially 4.9 on 04/12/2024, down to 1.3 after 10 mg PO vitamin K, no evidence of bleeding -monitor daily INR. -restart warfarin postoperatively per pharmacy protocol 7. BPH with chronic urinary obstruction -continue tamsulosin 8. HLD -continue statin Code status is full code. DVT prophylaxis with warfarin. Proxy is sister Deyanira. Dispo: patient admitted under inpatient status. Likely SNF, PT/OT after surgery. Quality VTE Deep Vein Thrombosis/Pulmonary Embolism Present on Admission: No IH PROFEE Charge codes Subsequent inpatient/observation care: 02586
[2024-04-16] MEDS: ACETAMINOPHEN 325 MG TABLET 650 MG PO (16:36)
[2024-04-16] MEDS: ATORVASTATIN 20 MG TABLET PO (21:17)
[2024-04-16] MEDS: SODIUM CHLORIDE 0.9% FLUSH 10 ML IV (21:17)
[2024-04-17] VITALS (11 sets, daily range): BP systolic 95–132; BP diastolic 36–47; PULSE 56–66; RESP 12–20; TEMP 36.2–36.9; O2SAT 92–95
[2024-04-17] MEDS: CEFAZOLIN VIAL 1 GM in SODIUM CHLORIDE 0.9% 100 ML IV ×3 (04:10→20:19)
[2024-04-17 05:36] LABS: Add Manual Diff / Slide Review NO; Basophils Absolute Auto 100 /uL (0-100); Basophils Percent Auto 0.6 % (0-2); Eosinophils Absolute Auto 300 /uL (0-450); Eosinophils Percent Auto 2.9 % (2-4); Hematocrit 24.8 % (41-53); Hemoglobin 8.5 g/dL (13.5-17.5); Lymphocytes Absolute Auto 1100 /uL (1100-4500); Lymphocytes Percent Auto 10.3 % (25-40); Mean Corpuscular HGB Conc 34.2 % (30-36); Mean Corpuscular Hemoglobin 29.1 PG (26-34); Mean Corpuscular Volume 85.2 fL (80-100); Monocytes Absolute Auto 900 /uL (0-900); Monocytes Percent Auto 9.1 % (3-14); Neutrophils Absolute Auto 8000 /uL (1500-7000); Neutrophils Percent Auto 77.1 % (50-75); Platelet Count 312 X10^3/uL (150-400); Red Blood Cell Count 2.91 X10^6/uL (4.5-5.9); Red Cell Distribution Width 15.8 % (11.6-14.8); White Blood Cell Count 10.3 X10^3/uL (4.5-11.0)
[2024-04-17 05:44] LABS: INR 1.4 (0.9-1.3); Prothrombin Time 16.2 SECONDS (9.4-12.5)
[2024-04-17 05:53] LABS: BUN Creatinine Ratio 41.2 (6-22); Blood Urea Nitrogen 35 mg/dL (9-20); Calcium 8.6 mg/dL (8.4-10.2); Carbon Dioxide 27 mmol/L (22-32); Chloride 107 mmol/L (98-107); Estimated Glomerular Filt Rate > 60 mL/min (>60); Glucose 80 mg/dL (80-110); HEMOLYSIS < 15 (0-50); Potassium 4.3 mmol/L (3.4-5.1); Sodium 135 mmol/L (137-145)
--- NOTE | 2024-04-17 09:12 | PM.PN.1 ---
Subjective Subjective Date Patient Seen: 04/17/24 Time Patient Seen: 09:12 Exam Vital Signs (past 8 hours): - 04/17/24 04:00 04/17/24 05:00 Temperature 97.5 F L Pulse Rate 56 L Respiratory Rate 18 Blood Pressure 123/41 L Pulse Oximetry 93 93 Oxygen Delivery Method Room Air Oxygen Delivery Method Room Air Oxygen Flow Rate 0 Objective Labs 04/17/24 05:15 04/17/24 05:15 Labs: Laboratory Results - last 24 hr 04/17/24 05:15 WBC 10.3 RBC 2.91 L Hgb 8.5 L Hct 24.8 L MCV 85.2 MCH 29.1 MCHC 34.2 RDW 15.8 H Plt Count 312 Neut % (Auto) 77.1 H Lymph % (Auto) 10.3 L [place] % (Auto) 9.1 Eos % (Auto) 2.9 Baso % (Auto) 0.6 Neut # (Auto) 8000 H Lymph # (Auto) 1100 [place] # (Auto) 900 Eos # (Auto) 300 Baso # (Auto) 100 PT 16.2 H INR 1.4 H Sodium 135 L Potassium 4.3 Chloride 107 Carbon Dioxide 27 BUN 35 H Creatinine 0.85 Estimated GFR > 60 BUN/Creatinine Ratio 41.2 H Glucose 80 Calcium 8.6 PFSH Medical History Mixed hyperlipidemia Essential hypertension Systolic CHF, chronic Thrombophilia History of UTI Typical atrial flutter Paroxysmal atrial fibrillation 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) Aortic regurgitation BPH (benign prostatic hyperplasia) Cyst of left kidney Neoplasm of uncertain behavior of bladder Elevated PSA Iron deficiency anemia due to dietary causes Neurogenic bladder (Unknown) Neuropathy (Unknown) Encephalopathy (Unknown) Gastric ulcer (Unknown) Osteoarthritis (Unknown) Osteopenia (04/29/16) Surgical History Status post cardiac catheterization (~2020) History of colon resection Hx of shoulder surgery (Unknown) History of left hip replacement (Unknown) History of bilateral knee replacement (Unknown) Family History Mother Cancer Medical history unknown Father Medical history unknown Social History marital status: unknown household members: none occupational status: previously employed Smoking Status: Former smoker second hand exposure: No alcohol intake: never substance use type: does not use Assessment & Plan Assessment & Plan narrative: INR today 1.4, and PT 16.2, will continue to hold Coumadin and do it TOMORROW, debride more, and re-place wound vac, will feed him today, NPO after midnight. I told him and he is OK with that, Hb 8.5, down from 8.8, there is NO whiting to do the procedure, tomorrow will be OK. Time-Based Coding :: [TOTAL MINUTES] spent with patient and on the chart (including review of chart, obtaining history, exam, reviewing outside data, placing orders, documenting exam and treatment plan, and counseling patient) on [DATE]. Quality VTE Deep Vein Thrombosis/Pulmonary Embolism Present on Admission: No
[2024-04-17] MEDS: AMIODARONE 200 MG TABLET PO (11:53)
[2024-04-17] MEDS: CHOLECALCIFEROL (VITAMIN D3) 1,000 UNIT TABLET 4000 UNIT PO (11:53)
[2024-04-17] MEDS: AMLODIPINE 5 MG TABLET 2.5 MG PO ×2 (11:55→20:29)
[2024-04-17] MEDS: TAMSULOSIN 0.4 MG CAPSULE PO (11:55)
[2024-04-17] MEDS: carvediloL 12.5 MG TABLET 25 MG PO ×2 (11:55→20:39)
[2024-04-17] MEDS: ASCORBIC ACID 500 MG TABLET 1000 MG PO (11:56)
[2024-04-17] MEDS: LOSARTAN 50 MG TABLET PO ×2 (11:57→20:39)
[2024-04-17] MEDS: FUROSEMIDE 20 MG TABLET PO (11:57)
--- NOTE | 2024-04-17 12:13 | P.PN_ITS ---
Subjective Subjective Date Patient Seen: 04/17/24 Time Patient Seen: 11:10 Interval history: 73 M PMH of paroxysmal atrial fibrillation on warfarin, dilated cardiomyopathy, mod-severe AR, hypertension, hyperlipidemia, neurogenic bladder with daily self- cath, BPH, and AAA who presented with left hip pain after a fall on thursday. He was sitting on the side of his tub and fell on to his buttocks. He has had continued pain, difficulty ambulating. He came in today with continued pain and drainage noted from the area. He denies recent shortness of breath, fever, abdominal pain, nausea, vomiting, or diarrhea. He further denies cough, focal weakness or numbness, no facial droop, and no numbness. He denies any lesions or skin issues prior to his fall. CT scan performed showed large decubitus sacral ulcer, possible osteomyelitis. MR did not show any evidence of osteomyelitis. There is no abscess notable. He was given a dose of ceftriaxone in the ER. Interval history: The patient has no complaints today. Warfarin is held in anticipation of repeat debridement tomorrow per surgery. Sequential compression devices are placed for DVT prophylaxis. Exam Vital Signs (past 8 hours): - 04/17/24 05:00 04/17/24 08:00 Temperature 97.1 F L Pulse Rate 66 Respiratory Rate 12 Blood Pressure 95/47 L Pulse Oximetry 93 92 Oxygen Delivery Method Room Air Oxygen Flow Rate 0 Oxygen Delivery Method Room Air Oxygen Flow Rate 0 Narrative Exam Narrative: General:? Patient is well developed and well nourished, in no distress at this time. Extremities: No edema or joint effusions. No cyanosis or clubbing. Skin: See surgery and nursing notes. Neuro:? Alert and orientated x3,? sensation to touch intact in all extremities, no gross deficits noted of cranial nerves. Psych:? Patient has a well-kept appearance, appropriate affect, mental status attitude thought context and judgment are appropriate for age. Objective Labs 04/17/24 05:15 04/17/24 05:15 Labs: Laboratory Results - last 24 hr 04/17/24 05:15 WBC 10.3 RBC 2.91 L Hgb 8.5 L Hct 24.8 L MCV 85.2 MCH 29.1 MCHC 34.2 RDW 15.8 H Plt Count 312 Neut % (Auto) 77.1 H Lymph % (Auto) 10.3 L [place] % (Auto) 9.1 Eos % (Auto) 2.9 Baso % (Auto) 0.6 Neut # (Auto) 8000 H Lymph # (Auto) 1100 [place] # (Auto) 900 Eos # (Auto) 300 Baso # (Auto) 100 PT 16.2 H INR 1.4 H Sodium 135 L Potassium 4.3 Chloride 107 Carbon Dioxide 27 BUN 35 H Creatinine 0.85 Estimated GFR > 60 BUN/Creatinine Ratio 41.2 H Glucose 80 Calcium 8.6 PFSH Medical History Mixed hyperlipidemia Essential hypertension Systolic CHF, chronic Thrombophilia History of UTI Typical atrial flutter Paroxysmal atrial fibrillation 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) Aortic regurgitation BPH (benign prostatic hyperplasia) Cyst of left kidney Neoplasm of uncertain behavior of bladder Elevated PSA Iron deficiency anemia due to dietary causes Neurogenic bladder (Unknown) Neuropathy (Unknown) Encephalopathy (Unknown) Gastric ulcer (Unknown) Osteoarthritis (Unknown) Osteopenia (04/29/16) Surgical History Status post cardiac catheterization (~2020) History of colon resection Hx of shoulder surgery (Unknown) History of left hip replacement (Unknown) History of bilateral knee replacement (Unknown) Family History Mother Cancer Medical history unknown Father Medical history unknown Social History marital status: unknown household members: none occupational status: previously employed Smoking Status: Former smoker second hand exposure: No alcohol intake: never substance use type: does not use Assessment & Plan Assessment & Plan narrative: 1. Sacral decubitus ulcer, possible infection, unstageable - continue cefazolin which will also cover urinary infection. MRSA screen negative. - see images from nursing note for documentation. May be related to fall or chronically developing, unclear at this time. - continue local wound care, antibiotics for possible infection and cellulitis. - OR debridement 04/15/2024 with wound vac placement, with repeat OR debridement planned 04/18/2024. Case reviewed with surgery today per - PT / OT 2. Acute cystitis due to pansensitive E. coli related to chronic urinary obstruction -continue cefazolin primarily for above indication. 3. Possible mild acute on chronic diastolic heart failure - No reported symptoms, weakness could be related to above infection, or given heart possible diastolic heart failure given his previous valvular issues. - Repeat echo 04/11/2024 was unchanged from prior. - continue home medications with coreg, amlodipine, losartan bid. 4. HTN - continue home medications without change, mildly hypertensive on presentation. 5. paroxysmal atrial fibrillation -currently rate controlled -continue home coreg, amio and warfarin (after surgery) 6. supratherapeutic INR -initially 4.9 on 04/12/2024, down to 1.4 after 10 mg PO vitamin K, no evidence of bleeding -monitor daily INR. -restart warfarin postoperatively per pharmacy protocol 7. BPH with chronic urinary obstruction -continue tamsulosin 8. HLD -continue statin Code status is full code. DVT prophylaxis with warfarin. Proxy is sister Deyanira. Dispo: patient admitted under inpatient status. Plan for SNF. Will need wound care consult tomorrow postoperatively. Quality VTE Deep Vein Thrombosis/Pulmonary Embolism Present on Admission: No PROFEE Charge codes Subsequent inpatient/observation care: 35077
--- NOTE | 2024-04-17 13:20 | PT.IPTN ---
Current Diagnoses Cellulitis, unspecified (04/11/24) Pressure ulcer of sacral region, unspecified stage (04/11/24) Personal history of urinary (tract) infections (04/11/24) Surgery Performed Operation Date: 04/14/24 15:30 Actual Procedures p Incision and Drainage Debride Sacral Decubitus - Isael Buckley MD Physical Therapy Treatment Note M2 PT-IP Current Condition Start: 04/12/24 07:47 Freq: NEEDED Status: Active Protocol: Document 04/15/24 14:40 AB (Rec: 04/15/24 16:55 AB [id number]) Physical Therapy Current Condition Current Condition Evaluation Date 04/15/24 Treatment Diagnosis sacral decubitus ulcer excision; difficulty in walking Onset Date 04/11/24 M3 PT-IP Subjective Start: 04/12/24 07:47 Freq: NEEDED Status: Active Protocol: Document 04/17/24 10:52 MB (Rec: 04/17/24 13:20 MB [id number]) Subjective Physical Therapy Visit Type Type Treatment Note Visit Start Time 10:52 Visit Stop Time 10:12 Number of STARCH MANGLE TENDER Visits 0 Physical Therapy Visit Comments Patient Comments Pt partial side lying to right and sister nearby for treatment. Pt is reluctantly agreeable to PT. Therapy Pain Assessment Pain When Pain Assessed At Rest Pain Present Pain Present Pain Reported Location Sacrum Scale Used Does not give number M4 PT-IP Mobility and Gait Start: 04/12/24 07:47 Freq: NEEDED Status: Active Protocol: Document 04/17/24 10:52 MB (Rec: 04/17/24 13:20 MB [id number]) PT-Bed Mobility Assessment Rolling Type of Rolling Bilateral Level of Assist Minimal Assistance,Maximal Assistance,1 Person Assistance ,2 Person Assistance Supine to Sit Supine to Sit Maximum Assistance,1 Person Assistance,Bedrails Sit to Supine Sit to Supine Moderate Assistance,1 Person Assistance,Bedrails Scooting Scooting to Edge of Bed Contact Guard Assistance PT-Transfer Assessment Sit to and From Stand Sit to and from Stand Maximum Assistance,1 Person Assistance,Use of Upper Extremities Equipment Transfer Assistive Device Gait Belt,Front Wheeled Walker Orthotic/Prosthetic Devices or Brace: No Comments Mobility Comments Standing only today d/t pt with reports of pain and bowel incontinence. Pt sits back on bed and 2 person assistance to get bed gambino and assist with rolling to position. Initial instruction in rolling with min A and use of rail today. PT-Balance Assessment Sitting Balance and Reactions Static Sitting Balance Ability Fair Dynamic Sitting Balance Ability Fair Standing Balance and Reactions Static Standing Balance Ability Poor Dynamic Standing Balance Ability Poor Device Used FWW M5 PT-IP Objective Assessments Start: 04/12/24 07:47 Freq: NEEDED Status: Active Protocol: Document 04/15/24 14:40 AB (Rec: 04/15/24 16:55 AB [id number]) Orientation Orientation/Cognition Level of Alertness Alert Orientation Name,Place,Situation Language Function Ability Hard of Hearing Safety Awareness Decreased Safety Awareness Memory Description Short Term Impaired Gross Range of Motion Lower Extremity ROM Assessment Within Functional Limits Strength Lower Extremity Strength Assessment Bilaterally Impaired Hip 3+/5 Knee 3+/5 Comments Strength Comments LLE slightly stronger than LLE Muscle Tone Muscle Tone WNL Yes M6 PT-IP Treatment Start: 04/12/24 07:47 Freq: NEEDED Status: Active Protocol: Document 04/17/24 10:52 MB (Rec: 04/17/24 13:20 MB [id number]) Physical Therapy Treatment Education Education Provided Safety Other Treatments Other Treatment Performed Ed pt that sitting is not ideal with sacral wound and ed in benefits of bed mobility, standing and mobility overall M7 PT-IP Assessment and Plan Start: 04/12/24 07:47 Freq: NEEDED Status: Active Protocol: Document 04/17/24 10:52 MB (Rec: 04/17/24 13:20 MB [id number]) PT Summary Assessment and Plan Potential Rehabilitation Potential Fair Status of Condition at Evaluation Unstable Summary Impairments Pain,ROM,Strength,Balance, Coordination,Sensation,Tone, Cognition,Bed Mobility, Transfers,Gait,Activity Tolerance Progress Towards Goals Slow Progress due to Pain,Slow Progress due to Activity Tolerance Assessment Summary Pt con't to require heavy assistance for bed mobility and STS. Bowel incontinence with standing today and returned to bed for use of bed gambino and nsg alerted. Pt to likely go for wound debridement next date. Recommend SNF at d/c. Goals Bed Mobility Goal Minimal Assistance Transfer Goal Minimal Assistance,Front Wheeled Walker Gait Goal Minimal Assistance,Front Wheel Walker Gait Distance 25 Other Goals improve bed mobility, transfers and ambulation usign LRAD ~ 100 ft SBA Days to Meet Goals 10 Frequency of Treatment Frequency Of Treatment Once a Day Treatment Plan Physical Therapy Treatment Plan Bed Mobility Training,Transfer Training,Gait Training, Therapeutic Exercise,Balance Retraining,Post Op Education, Discharge Planning,Hot or Cold Pack,Neuromuscular Re-ed, Coordination Retraining,Manual Therapy Precautions Other Precautions Falls, sacral wound with wound vac and limit sitting, roll every two hours and try to off weight sacrum in the bed Recommendations To Nursing Amount of Assist Needed 2 Person Assist Discharge Recommendations PT Discharge Recommendations SNF Rehab Transportation Needs at Discharge Wheelchair/Cabulance,Stretcher /Ambulance
[2024-04-17] MEDS: OXYCODONE IR 5 MG TABLET PO (13:44)
--- NOTE | 2024-04-17 13:53 | PC.NURSE ---
opsite changed around wound vac after getting soiled with stool, pt eddie well pain at 8/10 medicated with oxy po
--- NOTE | 2024-04-17 14:21 | CM.DPC ---
Patient will return to OR on Thursday for repeat I&D, held today d/t PT/INR. Spoke with Tessa at [facility] and she requested we call back Thursday after their morning meeting to know better bed availability timing. Will need f/u for auth submission. CARMINE Hyde
[2024-04-17] MEDS: ATORVASTATIN 20 MG TABLET PO (20:22)
[2024-04-18] VITALS (25 sets, daily range): BP systolic 107–151; BP diastolic 37–52; PULSE 56–62; RESP 10–21; TEMP 36.1–37.2; O2SAT 20–98; BMI 22.3
[2024-04-18] MEDS: CEFAZOLIN VIAL 1 GM in SODIUM CHLORIDE 0.9% 100 ML IV ×2 (04:29→21:16)
[2024-04-18] MEDS: SODIUM CHLORIDE 0.9% FLUSH 10 ML IV ×3 (04:29→21:31)
[2024-04-18] MEDS: OXYCODONE IR 5 MG TABLET PO (04:37)
[2024-04-18 05:35] LABS: Hematocrit 25.2 % (41-53); Hemoglobin 8.5 g/dL (13.5-17.5); Mean Corpuscular HGB Conc 33.9 % (30-36); Mean Corpuscular Hemoglobin 28.9 PG (26-34); Mean Corpuscular Volume 85.2 fL (80-100); Platelet Count 312 X10^3/uL (150-400); Red Blood Cell Count 2.95 X10^6/uL (4.5-5.9); White Blood Cell Count 12.7 X10^3/uL (4.5-11.0)
[2024-04-18 05:45] LABS: INR 1.4 (0.9-1.3)
--- NOTE | 2024-04-18 07:52 | PM.PN.1 ---
Subjective Subjective Interval history: Summary: 73 M PMH of paroxysmal atrial fibrillation on warfarin, dilated cardiomyopathy, mod-severe AR, hypertension, hyperlipidemia, neurogenic bladder with daily self-cath, BPH, and AAA who presented with left hip pain after a fall on thursday. He was sitting on the side of his tub and fell on to his buttocks. He has had continued pain, difficulty ambulating. He came in today with continued pain and drainage noted from the area. He denies recent shortness of breath, fever, abdominal pain, nausea, vomiting, or diarrhea. He further denies cough, focal weakness or numbness, no facial droop, and no numbness. He denies any lesions or skin issues prior to his fall. CT scan performed showed large decubitus sacral ulcer, possible osteomyelitis. MR did not show any evidence of osteomyelitis. There is no abscess notable. He was given a dose of ceftriaxone in the ER. Debridement scheduled for today. S: He was doing well after debridement today. He was wound cultures remained negative, there were white cells. No fevers. He denies any pain after his procedure. He denies any shortness a breath or abdominal pain. Exam Vital Signs (past 8 hours): - 04/18/24 00:00 04/18/24 01:00 04/18/24 04:00 Temperature 99 F 98.2 F Pulse Rate 57 L 56 L Respiratory Rate 20 Blood Pressure 107/37 L 108/42 L Pulse Oximetry 94 94 94 Oxygen Delivery Method Room Air Oxygen Flow Rate 0 0 0 04/18/24 05:00 Temperature Pulse Rate Respiratory Rate Blood Pressure Pulse Oximetry 94 Oxygen Delivery Method Room Air Oxygen Flow Rate 0 Oxygen Delivery Method Room Air Oxygen Flow Rate 0 Narrative Exam Narrative: NAD, alert and oriented. Fluent speech. He appears to be chronically ill. Lungs are clear, normal rate and effort. Heart is regular, no murmur gallop or rub. Abdomen is soft, non distended. Extremities are free of edema. 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 Elevated PSA Iron deficiency anemia due to dietary causes Neurogenic bladder (Unknown) Neuropathy (Unknown) Encephalopathy (Unknown) Gastric ulcer (Unknown) Osteoarthritis (Unknown) Osteopenia (04/29/16) Surgical History Status post cardiac catheterization (~2020) History of colon resection Hx of shoulder surgery (Unknown) History of left hip replacement (Unknown) History of bilateral knee replacement (Unknown) Family History Mother Cancer Medical history unknown Father Medical history unknown Social History marital status: unknown household members: none occupational status: previously employed Smoking Status: Former smoker second hand exposure: No alcohol intake: never substance use type: does not use Assessment & Plan Assessment & Plan narrative: 1. Sacral decubitus ulcer, possible infection, unstageable. Active. - continue cefazolin which will also cover urinary infection. MRSA screen negative. - see images from nursing note for documentation. May be related to fall or chronically developing, unclear at this time. - continue local wound care, antibiotics for possible infection and cellulitis. - OR debridement 04/15/2024 with wound vac placement, with repeat OR debridement performed on 04/18/2024. - PT / OT 2. Acute cystitis due to pansensitive E. coli related to chronic urinary obstruction. Improving. -continue cefazolin primarily for above indication. 3. Possible mild acute on chronic diastolic heart failure, improved. - No reported symptoms, weakness could be related to above infection, or given heart possible diastolic heart failure given his previous valvular issues. - Repeat echo 04/11/2024 was unchanged from prior. - continue home medications with coreg, amlodipine, losartan bid. 4. HTN, stable. - continue home medications without change, mildly hypertensive on presentation. 5. paroxysmal atrial fibrillation, stable. -currently rate controlled -continue home coreg, amio and warfarin (after surgery) 6. supratherapeutic INR, improved. -initially 4.9 on 04/12/2024, down to 1.4 after 10 mg PO vitamin K, no evidence of bleeding -monitor daily INR. -restart warfarin postoperatively per pharmacy protocol 7. BPH with chronic urinary obstruction, stable. -continue tamsulosin 8. HLD, stable. -continue statin Code status is full code. DVT prophylaxis with warfarin. Proxy is sister Deyanira. Dispo: patient admitted under inpatient status. Plan for SNF. Will need wound care consult tomorrow postoperatively. Time-Based Coding :: [TOTAL MINUTES] spent with patient and on the chart (including review of chart, obtaining history, exam, reviewing outside data, placing orders, documenting exam and treatment plan, and counseling patient) on [DATE]. Quality VTE Deep Vein Thrombosis/Pulmonary Embolism Present on Admission: No
--- NOTE | 2024-04-18 09:11 | P.PN_ITS ---
Exam Vital Signs (past 8 hours): - 04/18/24 04:00 04/18/24 05:00 04/18/24 09:00 Temperature 98.2 F Pulse Rate 56 L Respiratory Rate 20 Blood Pressure 108/42 L 121/41 L Pulse Oximetry 94 94 Oxygen Delivery Method Room Air Oxygen Flow Rate 0 0 Oxygen Delivery Method Room Air Oxygen Flow Rate 0 Objective Labs 04/18/24 05:20 04/17/24 05:15 Labs: Laboratory Results - last 24 hr 04/18/24 05:20 WBC 12.7 H RBC 2.95 L Hgb 8.5 L Hct 25.2 L MCV 85.2 MCH 28.9 MCHC 33.9 RDW 16.0 H Plt Count 312 PT 16.0 H INR 1.4 H PFSH Medical History Mixed hyperlipidemia Essential hypertension Systolic CHF, chronic Thrombophilia History of UTI Typical atrial flutter Paroxysmal atrial fibrillation 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) Aortic regurgitation BPH (benign prostatic hyperplasia) Cyst of left kidney Neoplasm of uncertain behavior of bladder Elevated PSA Iron deficiency anemia due to dietary causes Neurogenic bladder (Unknown) Neuropathy (Unknown) Encephalopathy (Unknown) Gastric ulcer (Unknown) Osteoarthritis (Unknown) Osteopenia (04/29/16) Surgical History Status post cardiac catheterization (~2020) History of colon resection Hx of shoulder surgery (Unknown) History of left hip replacement (Unknown) History of bilateral knee replacement (Unknown) Family History Mother Cancer Medical history unknown Father Medical history unknown Social History marital status: unknown household members: none occupational status: previously employed Smoking Status: Former smoker second hand exposure: No alcohol intake: never substance use type: does not use Assessment & Plan Assessment and plan (1) Sacral decubitus ulcer: Problem details: Wound vac on, good seal (after RN had to reinforce it yesterday, due to leak), INR still 1.4, PT 16, will take him to surgery TODAY for Re-debridement, and re- application of wound vac. and will re-start Coumadin THIS evening. Qualifiers: Pressure injury stage: unspecified pressure injury stage Qualified Code(s): L89.159 - Pressure ulcer of sacral region, unspecified stage Status: Acute Time-Based Coding :: [TOTAL MINUTES] spent with patient and on the chart (including review of chart, obtaining history, exam, reviewing outside data, placing orders, documenting exam and treatment plan, and counseling patient) on [DATE]. Quality VTE Deep Vein Thrombosis/Pulmonary Embolism Present on Admission: No
--- NOTE | 2024-04-18 10:12 | OT.IP.EVAL ---
Current Diagnoses Cellulitis, unspecified (04/11/24) Pressure ulcer of sacral region, unspecified stage (04/11/24) Personal history of urinary (tract) infections (04/11/24) Surgery Performed Operation Date: 04/14/24 15:30 Actual Procedures p Incision and Drainage Debride Sacral Decubitus - Isael Buckley MD Operation Date: 04/18/24 12:15 Actual Procedures p Incision and Drainage of sacral wound with wound vac replacement - Kareen Sales MD Past Medical History (Last Reviewed 04/18/24 @ 16:21 by Rashad So MD) Aortic regurgitation BPH (benign prostatic hyperplasia) Cyst of left kidney Elevated PSA Encephalopathy (Unknown) Essential hypertension Gastric ulcer (Unknown) History of UTI Iron deficiency anemia due to dietary causes Mixed hyperlipidemia Neoplasm of uncertain behavior of bladder Neurogenic bladder (Unknown) Neuropathy (Unknown) Osteoarthritis (Unknown) Osteopenia (04/29/16) Paroxysmal atrial fibrillation 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) Systolic CHF, chronic Thrombophilia Typical atrial flutter Surgical History (Last Reviewed 04/18/24 @ 16:21 by Rashad So MD) History of bilateral knee replacement (Unknown) History of colon resection History of left hip replacement (Unknown) Hx of shoulder surgery (Unknown) Status post cardiac catheterization (~2020) Occupational Therapy Inpatient Evaluation/Re-Eval M1 PT/OT-IP Prior Functional Status Start: 04/12/24 07:47 Freq: NEEDED Status: Active Protocol: Document 04/18/24 16:21 CGR (Rec: 04/18/24 16:34 CGR [id number]) Medical Review Prior Functional Status Medical History Reviewed Yes Communication able to make needs known Mobility and Gait pt stated that he was modified independent with all mobilities and ambulation using B axillary crutches; pt stated that BLE are weak due to previous hip and knee replacements Activities of Daily Living and IADL's Pt was IND in all ADLs but had friends picking up groceries for him. He states that things were getting more difficult to perform. Social History Household Members none Living Arrangements Apartment/Condo Number of Floors (Floors) One Floor Number of Stairs To Enter/Railing? no steps to enter Home Environment Standard Height Toilet,Tub/ Shower Home Equipment Four Wheel Walker,Crutches, Grab Bars In Shower Employment Status Retired Additional Social History Comment Pt and pt's family live in the area. M2 OT-IP Current Condition Start: 04/18/24 16:21 Freq: Status: Active Protocol: Document 04/18/24 16:21 CGR (Rec: 04/18/24 16:34 CGR [id number]) Occupational Therapy Current Condition Current Condition Evaluation Date 04/18/24 Treatment Diagnosis sacral decubitus ulcer with wound vac Diagnosis Onset Date 04/11 M3 OT- IP Subjective and Pain Start: 04/18/24 16:21 Freq: Status: Active Protocol: Document 04/18/24 16:21 CGR (Rec: 04/18/24 16:34 CGR [id number]) OT- Subjective Occupational Therapy Visit Type Type Initial Evaluation Visit Start Time 09:40 Visit Stop Time 10:12 Notes Pt planned for I&D at noon. OT Pain Assessment Pain When Pain Assessed At Rest Pain Present Pain Present Pain Reported Location Sacrum Intensity 5 Scale Used Numeric (0 - 10) Management Techniques Modification of Treatment,Re- positioning,Timing of Activity with Medications M4 OT- IP ADL's Start: 04/18/24 16:21 Freq: Status: Active Protocol: Document 04/18/24 16:21 CGR (Rec: 04/18/24 16:34 CGR [id number]) OT [id number] Comments OT Self-Feeding Comments not meal time OT ADL-Grooming Comments OT Grooming Comments pt declined, states he already performed this AM OT ADL-Oral Care Comments Oral Care Comments pt declined, states he already performed this AM OT ADL-Dressing General Eval Lower Body Dressing Ability Total Assistance Areas Needing Assistance Socks OT ADL-Toileting Comments OT Toileting Comments not performed OT ADL-Bathing Comments OT Bathing Comments not performed M5 OT- IP IADL's Start: 04/18/24 16:21 Freq: Status: Active Protocol: Document 04/18/24 16:21 CGR (Rec: 04/18/24 16:34 CGR [id number]) OT-Instrumental Activities of Daily Living Deficits IADL Deficits Identified No Deficits Home Safety Awareness Awareness of Need for Assistance at Home Good Awareness Ability to Problem Solve Emergency Able to Problem Solve Situations Medication Management Medication Management No Deficits Identified Money Management Money Management No Deficits Identified Meal Preparation Meal Preparation No Deficits Identified 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 Tank 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 Tank 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 No Deficits Identified Driving Driving Comments Pt does not drive at baseline M6 OT- IP Functional Cognition Start: 04/18/24 16:21 Freq: Status: Active Protocol: Document 04/18/24 16:21 CGR (Rec: 04/18/24 16:34 R [id number]) Cognitive Factors Limiting Selfcare Function Cognitive Ability Level of Alertness Alert Patient Orientation Name,Age,Birthday,Month,Date, Year,Day of Week,Place, Situation Attention Span Ability Capable of Focused Attention, Capable of Sustained Attention Ability to Follow Commands Able to Follow One Step Commands with Increased Time, Able to Follow One Step Commands with Repetition OT- Vision and Hearing OT- Hearing Assessment OT- Hearing Assessment Hearing Impaired,Use of Hearing Aids OT- Vision Assessment Visual Acuity WFL Visual Attentiveness WFL Occular Pursuits WFL Visual Convergence Impaired M7 OT- IP Mobility and Balance Start: 04/18/24 16:21 Freq: Status: Active Protocol: Document 04/18/24 16:21 CGR (Rec: 04/18/24 16:34 R [id number]) OT- Bed Mobility Assessment Supine to Sit Supine to Sit Assist Maximum Assistance,1 Person Assistance Sit to Supine Sit to Supine Assist Maximum Assistance,1 Person Assistance OT-Transfer Assessment Sit to and From Stand Sit to and from Stand Moderate Assistance,1 Person Assistance Transfers Transfer Ability Moderate Assistance,1 Person Assistance Technique Transfer Destination Bed Transfer Technique Stand Step Pivot Devices Transfer Assistive Devices Gait Belt,Front Wheeled Walker Comments Mobility Comments Pt stood x 2 with steps towards HOB. OT- Balance Assessment Sitting Balance and Reactions Static Sitting Balance Ability Good Dynamic Sitting Balance Ability Good M8 OT- IP Objective Assessments Start: 04/18/24 16:21 Freq: Status: Active Protocol: Document 04/18/24 16:21 CGR (Rec: 04/18/24 16:34 R [id number]) OT Gross Range of Motion Upper Extremity Range of Motion Assessment Within Functional Limits OT Strength Upper Extremity Strength Assessment Within Functional Limits Comments Strength Comments shlds 4/5 arms and hand 4+/5 OT- Coordination Assessment Upper Extremity Finger to Nose Test Within Functional Limits Finger Tapping Test Within Functional Limits OT-Muscle Tone Assessment Muscle Tone WNL Yes OT Sensation Assessment Edema Edema Absent M9 OT- IP Assessment and Plan Start: 04/18/24 16:21 Freq: Status: Active Protocol: Document 04/18/24 16:21 CGR (Rec: 04/18/24 16:34 CGR [id number]) OT Summary Assessment and Plan Potential Rehabilitation Potential Good Analytic Complexity at Evaluation Moderate Summary OT Impairments Pain,Strength,Balance, Functional Mobility,Grooming, Dressing,Toileting,Bathing, Toilet Transfers,Shower Transfers,Activity Tolerance Progress Towards Goals Slow Progress due to Medical Issues Assessment Summary Pt presents as a moderate complexity evaluation s/p admit for recent fall that caused sacral decubitus ulcer with wound vac. Pt is profoundly weak with his movements and will need SNF upon discharge. Recommend d/c to SNF. Goals Grooming Goal Independent Dressing Goal Independent Toileting Goal Independent Bathing Goal Independent Toilet Transfer Goal Independent Shower Transfer Goal Independent Days to Meet Goals 30 Frequency of Treatment Other frequency 5x week Treatment Plan OT Treatment Plan ADL Training,Functional Mobility,Patient/Family Education,Discharge Planning Other Treatment Recommendations and Next endurance training, UE Treatment Focus strengthening, BSc transfer. Discharge Recommendations OT Discharge Recommendations SNF Rehab Transportation Needs at Discharge Wheelchair/Cabulance
--- NOTE | 2024-04-18 10:47 | DIET.PN1 ---
Dietary Progress Note Assessment: RD consulted to promote wound healing. Checked in with pt. Pt still tolerating Richie BID and Ensure. 75-100% po intakes, NPO now for wound re-debridement today. Will continue to follow for d/c plan. Ht: 175.26 cm Wt: 68.492 kg BMI: 22.3 UBW: 79.55 kg per pt a month ago (14% weight loss within 1 month, severe) Last BM: 04/18/24 (04/18/24 04:00) MNA: 11 [place] Score: 15 Diet: 04/18/24 00:01 NPO Diet Diet Modifications: NPO Type: NPO except for Meds Nutrition Percent Meal Consumed 75% 04/17/24 18:00 Percent Meal Consumed 75% 04/16/24 18:00 Labs: RBC 2.95 X10^6/uL (4.5-5.9) L 04/18/24 05:20 Hgb 8.5 g/dL (13.5-17.5) L 04/18/24 05:20 Hct 25.2 % (41-53) L 04/18/24 05:20 Creatinine 0.85 mg/dL (0.66-1.25) 04/17/24 05:15 Lactate 1.5 mmol/L (0.7-2.1) 04/11/24 10:35 Electronically Signed by: Jie Castro 04/18/24 10:47 Clinical Dietitian [address] [id number]
--- NOTE | 2024-04-18 12:04 | P.OP_ITS ---
Procedure & Clinicians Procedure: I&D and debridement and lavage of the stage IV presacral decubitus ulcer, 10 cm x 10 cm, and wound vac placement. Same procedure as scheduled: Yes Surgeon: Kareen Sales Click Yes if Unassisted: Yes Anesthesia Type: General Operative Notes Procedure in detail: OPERATIVE / PROCEDURE NOTE Josh Mcguire, 1950, 73,Male,CSN: [id number] 04/18/24 PREOPERATIVE DIAGNOSIS: Presacral infected decubitus ulcer: 10?cm x 10?cm x 3?cm stage 4 POSTOPERATIVE DIAGNOSIS:Same. PROCEDURE PERFORMED: Excisional debridement of the presacral decubitus stage IV infected 10?cm x 10?cm x 3?cm stage [address] to the ?bone, ?followed by irrigation of the wound, followed by wound vac placement, to continuous -125 mmHg.. CATALYST RECOVERY OPERATOR: None. ANESTHESIA: None needed - lost sensation. ESTIMATED BLOOD LOSS: Less than 20 mL. BLOOD GIVEN: None. FLUIDS GIVEN: Crystalloids. DRAINS: None. COMPLICATIONS: None. CONDITION: Stable. OPERATIVE DESCRIPTION: After appropriate informed consent was signed by the patient knowing all the risks, benefits, potential complications, and possible alternatives of the procedure, the patient was properly identified. he?received IV antibiotics. The presacral area, including the ulcer, was prepped and draped in the usual sterile fashion. Using a combination of a 10 blade scalpel, a 15 blade scalpel, and curettes large, the Excisional debridement of the presacral 10?cm x 10?cm x 3?cm stage [address] to the presacral fascia and bone, followed by injection of the 0.5% Marcaine to help the post op pain control,?followed by irrigation of the wound, After all necrotic tissues were debrided all the way down to viable, healthy, well-perfused tissue, profuse Irrigation of the wound was performed; followed by wound vac placement, with adequate seal, to continuous - 125 mmHg. ? Patient tolerated the procedure very well without any complications, and was sent to PACU in stable condition. ?
--- NOTE | 2024-04-18 12:12 | PT-IP ANOTE ---
Pt in surgery for sacral wound. Will con't PT efforts next date.
[2024-04-18] MEDS: LACTATED RINGERS 1,000 ML 42 ML IV (12:41)
[2024-04-18] MEDS: CEFAZOLIN 2 GM/100 ML PREMIX 100 ML IV (13:12)
[2024-04-18] MEDS: BUPIVACAINE 0.5% (PF) 30 ML VIAL INJ (13:29)
--- NOTE | 2024-04-18 14:59 | CM.DPC ---
DCP SNF Planning Cont: Per Surgeon, pt taken to OR for further I&D today and scope and wound vac placed in OR. Per PT/OT, still recommending SNF. SW followed up on the following SNF referrals this w/e: [facility]- unlikely they can accept [facility]- very full for male beds [facility]- faxed referral and left msg requesting review. [facility]- reviewed and considering but needing to know the following information: will pt d/c on IV-Abx and will he need ID MD to follow after discharge? Need updated wound photo as only photo in EMR is from admission. garage laborer kindly getting updated wound photo this afternoon but pt just had wound vac placed and they will not remove it for photo today 04/18/24 but can take photo of the wound vac to send to [facility]. MD unsure at this moment if IV Abx and ID MD needed for pt at d/c but will help determine these answers. PASRR previously completed in anticipation of SNF. Plan: SW to follow closely for above information needed to provide to [facility] to confirm if they can accept pt and start his [facility] Medicare auth. Kristie An, SOFTLINES SUPERVISOR
--- NOTE | 2024-04-18 16:18 | PM.CN ---
History of Present Illness Consult details Date Patient Seen: 04/18/24 Time Patient Seen: 15:30 Chief complaint: fall, L hip injury Narrative: The patient is a 73-year-old male with atrial fibrillation, dilated cardiomyopathy, AR, neurogenic bladder, and hypertension who was admitted to the hospital on April 11 after he fell onto his buttocks. He presented with a painful sacral wound that was draining and was found to have a large sacral decubitus. He has undergone 2 surgical debridements and currently has a wound VAC in place. Wound cultures have been negative. He had a white count of 14.6 on admission and this has improved with IV antibiotic therapy. At the time of my examination the patient was very somnolent but denies having any significant pain or discomfort. He has had generalized weakness and difficulty ambulating and preparations are being made for transfer to a group home facility. There is no history of having any similar problems in the past. Meds Home Medications and Allergies Home Medications Medication Instructions Recorded Confirmed Type cholecalciferol (vitamin D3) 50 4,000 unit PO DAILY #0 caps 10/12/18 04/11/24 History mcg (2,000 unit) capsule (Vitamin D3) ferrous sulfate 325 mg (65 mg 325 mg PO MOTUWETHFR 12/21/18 04/11/24 History iron) tablet acetaminophen 500 mg capsule 1,000 mg PO Q6H PRN pain 02/23/19 04/11/24 History ascorbate calcium (vitamin C) 500 1,000 mg PO DAILY 12/18/20 04/11/24 History mg capsule losartan 50 mg tablet 50 mg PO BID 07/26/22 04/11/24 History atorvastatin 20 mg tablet (Lipitor) 20 mg PO BEDTIME #90 tabs 01/05/23 04/11/24 Rx amiodarone 200 mg tablet 200 mg PO DAILY 04/19/23 04/11/24 History amlodipine 2.5 mg tablet 2.5 mg PO BID #180 tabs 09/01/23 04/11/24 Rx carvedilol 25 mg tablet 25 mg PO BID 10/29/23 04/11/24 History furosemide 20 mg tablet (Lasix) 20 mg PO DAILY #30 tabs 11/12/23 04/11/24 Rx tamsulosin 0.4 mg capsule (Flomax) 0.4 mg PO DAILY #30 caps 02/01/24 04/11/24 Rx methenamine hippurate 1 gram tablet 1 g PO BID 04/11/24 04/11/24 History warfarin 3 mg tablet 2 mg PO BEDTIME 04/11/24 04/11/24 History Allergies Allergy/AdvReac Type Severity Reaction Status Date / Time ciprofloxacin Allergy Severe BREATHING Verified 10/29/23 13:03 PROBLEMS, CHILLS, SHAKES alendronate sodium AdvReac Severe GI bleed Verified 10/29/23 13:03 [ALENDRONATE SODIUM] cephalexin AdvReac Mild Headache Verified 10/29/23 13:03 morphine AdvReac Mild ABD PAIN Verified 10/29/23 13:03 Review of Systems Constitutional Comments: Generalized weakness Genitourinary Comments: Neurogenic bladder requiring self catheterization Exam Vital Signs (past 8 hours): - 04/18/24 09:00 04/18/24 12:00 04/18/24 12:33 Temperature 98.5 F 98.4 F Pulse Rate 56 L 59 L Respiratory Rate 15 16 Blood Pressure 121/41 L 132/37 L 151/52 H Pulse Oximetry 95 98 Oxygen Delivery Method Room Air Oxygen Flow Rate 0 04/18/24 14:05 04/18/24 14:08 04/18/24 14:11 Temperature 97.5 F L Pulse Rate 61 60 61 Respiratory Rate 18 18 18 Blood Pressure 146/50 H 146/50 H 149/50 H Pulse Oximetry 93 93 92 Oxygen Delivery Method Room Air Room Air Room Air Oxygen Flow Rate 04/18/24 14:15 04/18/24 14:19 04/18/24 14:22 Temperature 97.0 F L Pulse Rate 60 59 L 60 Respiratory Rate 16 17 16 Blood Pressure 147/49 H 149/50 H 148/49 H Pulse Oximetry 92 92 92 Oxygen Delivery Method Room Air Room Air Room Air Oxygen Flow Rate 04/18/24 14:27 04/18/24 14:38 04/18/24 15:00 Temperature 97.4 F L Pulse Rate 62 58 L 59 L Respiratory Rate 18 16 15 Blood Pressure 148/49 H 143/47 H 143/50 H Pulse Oximetry 20 L 91 94 Oxygen Delivery Method Room Air Room Air Oxygen Flow Rate 0 04/18/24 15:30 04/18/24 16:00 Temperature 97.3 F L 97.8 F Pulse Rate 59 L 59 L Respiratory Rate 21 10 L Blood Pressure 133/49 L 137/48 L Pulse Oximetry 89 L 93 Oxygen Delivery Method Oxygen Flow Rate 0 2 Oxygen Delivery Method Room Air Oxygen Flow Rate 2 Const Other: Thin male who is very somnolent but is arousable, no apparent distress Resp Other: Unlabored respirations Skin Other: Wound VAC in place over sacrum Objective Labs 04/18/24 05:20 04/17/24 05:15 Labs: Laboratory Results - last 24 hr 04/18/24 05:20 WBC 12.7 H RBC 2.95 L Hgb 8.5 L Hct 25.2 L MCV 85.2 MCH 28.9 MCHC 33.9 RDW 16.0 H Plt Count 312 PT 16.0 H INR 1.4 H PFSH Medical History Mixed hyperlipidemia Essential hypertension Systolic CHF, chronic Thrombophilia History of UTI Typical atrial flutter Paroxysmal atrial fibrillation 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) Aortic regurgitation BPH (benign prostatic hyperplasia) Cyst of left kidney Neoplasm of uncertain behavior of bladder Elevated PSA Iron deficiency anemia due to dietary causes Neurogenic bladder (Unknown) Neuropathy (Unknown) Encephalopathy (Unknown) Gastric ulcer (Unknown) Osteoarthritis (Unknown) Osteopenia (04/29/16) Surgical History Status post cardiac catheterization (~2020) History of colon resection Hx of shoulder surgery (Unknown) History of left hip replacement (Unknown) History of bilateral knee replacement (Unknown) Family History Mother Cancer Medical history unknown Father Medical history unknown Social History marital status: unknown household members: none occupational status: previously employed Tobacco & Substance Use Smoking Status: Former smoker second hand exposure: No alcohol intake: never substance use type: does not use Assessment & Plan Assessment and plan (1) Sacral decubitus ulcer: Problem details: Wound vac on, good seal (after RN had to reinforce it yesterday, due to leak), INR still 1.4, PT 16, will take him to surgery TODAY for Re-debridement, and re-application of wound vac. and will re-start Coumadin THIS evening. Qualifiers: Pressure injury stage: unspecified pressure injury stage Qualified Code(s): L89.159 - Pressure ulcer of sacral region, unspecified stage Status: Acute Assessment & Plan narrative: The patient has a large sacral decubitus with wound VAC in place. Recommend continuing negative pressure wound therapy, pressure offloading with air mattress and frequent turning, protein supplementation, follow up at wound center after discharge. Time-Based Coding :: [45 MINUTES] spent with patient and on the chart (including review of chart, obtaining history, exam, reviewing outside data, placing orders, documenting exam and treatment plan, and counseling patient) on [04/18/24].
[2024-04-18] MEDS: FERROUS SULFATE 325 MG TABLET PO (17:22)
[2024-04-18] MEDS: WARFARIN 5 MG TABLET PO (17:22)
[2024-04-18] MEDS: AMLODIPINE 5 MG TABLET 2.5 MG PO (21:27)
[2024-04-18] MEDS: LOSARTAN 50 MG TABLET PO (21:28)
[2024-04-18] MEDS: HYDROCODONE/ACET 5/325 TABLET 2 TAB PO (21:29)
[2024-04-18] MEDS: carvediloL 12.5 MG TABLET 25 MG PO (21:29)
[2024-04-18] MEDS: ATORVASTATIN 20 MG TABLET PO (21:29)
[2024-04-19] VITALS (14 sets, daily range): BP systolic 103–126; BP diastolic 40–46; PULSE 53–60; RESP 16–20; TEMP 36.3–37.1; O2SAT 94–96
[2024-04-19] MEDS: CEFAZOLIN VIAL 1 GM in SODIUM CHLORIDE 0.9% 100 ML IV ×3 (04:16→21:27)
[2024-04-19 06:16] LABS: Add Manual Diff / Slide Review NO; Basophils Absolute Auto 0 /uL (0-100); Basophils Percent Auto 0.1 % (0-2); Eosinophils Absolute Auto 0 /uL (0-450); Hematocrit 27.6 % (41-53); Hemoglobin 9.1 g/dL (13.5-17.5); Lymphocytes Absolute Auto 700 /uL (1100-4500); Lymphocytes Percent Auto 4.7 % (25-40); Mean Corpuscular HGB Conc 33.1 % (30-36); Mean Corpuscular Hemoglobin 28.3 PG (26-34); Mean Corpuscular Volume 85.5 fL (80-100); Monocytes Absolute Auto 400 /uL (0-900); Monocytes Percent Auto 2.6 % (3-14); Neutrophils Absolute Auto 12800 /uL (1500-7000); Neutrophils Percent Auto 92.6 % (50-75); Platelet Count 317 X10^3/uL (150-400); Red Blood Cell Count 3.22 X10^6/uL (4.5-5.9); Red Cell Distribution Width 15.9 % (11.6-14.8); White Blood Cell Count 13.8 X10^3/uL (4.5-11.0)
[2024-04-19 06:47] LABS: BUN Creatinine Ratio 31.5 (6-22); Blood Urea Nitrogen 28 mg/dL (9-20); Calcium 8.8 mg/dL (8.4-10.2); Carbon Dioxide 27 mmol/L (22-32); Chloride 106 mmol/L (98-107); Estimated Glomerular Filt Rate > 60 mL/min (>60); Glucose 130 mg/dL (80-110); HEMOLYSIS < 15 (0-50); Potassium 4.7 mmol/L (3.4-5.1); Sodium 134 mmol/L (137-145)
[2024-04-19 06:57] LABS: INR 1.4 (0.9-1.3); Prothrombin Time 16.5 SECONDS (9.4-12.5)
--- NOTE | 2024-04-19 07:32 | P.PN_ITS ---
Subjective Subjective Interval history: Summary: 73 M PMH of paroxysmal atrial fibrillation on warfarin, dilated cardiomyopathy, mod-severe AR, hypertension, hyperlipidemia, neurogenic bladder with daily self- cath, BPH, and AAA who presented with left hip pain after a fall on thursday. He was sitting on the side of his tub and fell on to his buttocks. He has had continued pain, difficulty ambulating. He came in today with continued pain and drainage noted from the area. He denies recent shortness of breath, fever, abdominal pain, nausea, vomiting, or diarrhea. He further denies cough, focal weakness or numbness, no facial droop, and no numbness. He denies any lesions or skin issues prior to his fall. CT scan performed showed large decubitus sacral ulcer, possible osteomyelitis. MR did not show any evidence of osteomyelitis. There is no abscess notable. He was given a dose of ceftriaxone in the ER. Debridement occured on 04/18. S: He was doing better today. He denies any nausea. Good pain control. Wound VAC is in place. Exam Vital Signs (past 8 hours): - 04/19/24 01:00 04/19/24 02:00 04/19/24 04:00 Temperature 97.6 F 97.8 F Pulse Rate 53 L 53 L Respiratory Rate 20 20 Blood Pressure 110/46 L 121/41 L Pulse Oximetry 96 96 96 Oxygen Delivery Method Room Air Oxygen Flow Rate 0 0 0 04/19/24 05:00 Temperature Pulse Rate Respiratory Rate Blood Pressure Pulse Oximetry 96 Oxygen Delivery Method Room Air Oxygen Flow Rate 0 Oxygen Delivery Method Room Air Oxygen Flow Rate 0 Narrative Exam Narrative: NAD, alert and oriented. Fluent speech. Cachectic Lungs are clear, normal rate and effort. Heart is regular, no murmur gallop or rub. Abdomen is soft, non distended. Extremities are free of edema. Wound VAC in place. Objective Labs 04/19/24 05:53 04/19/24 05:53 Labs: Laboratory Results - last 24 hr 04/19/24 05:53 WBC 13.8 H RBC 3.22 L Hgb 9.1 L Hct 27.6 L MCV 85.5 MCH 28.3 MCHC 33.1 RDW 15.9 H Plt Count 317 Neut % (Auto) 92.6 H Lymph % (Auto) 4.7 L [place] % (Auto) 2.6 L Eos % (Auto) 0.0 L Baso % (Auto) 0.1 Neut # (Auto) 26888 H Lymph # (Auto) 700 L [place] # (Auto) 400 Eos # (Auto) 0 Baso # (Auto) 0 PT 16.5 H INR 1.4 H Sodium 134 L Potassium 4.7 Chloride 106 Carbon Dioxide 27 BUN 28 H Creatinine 0.89 Estimated GFR > 60 BUN/Creatinine Ratio 31.5 H Glucose 130 H Calcium 8.8 PFSH Medical History Mixed hyperlipidemia Essential hypertension Systolic CHF, chronic Thrombophilia History of UTI Typical atrial flutter Paroxysmal atrial fibrillation 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) Aortic regurgitation BPH (benign prostatic hyperplasia) Cyst of left kidney Neoplasm of uncertain behavior of bladder Elevated PSA Iron deficiency anemia due to dietary causes Neurogenic bladder (Unknown) Neuropathy (Unknown) Encephalopathy (Unknown) Gastric ulcer (Unknown) Osteoarthritis (Unknown) Osteopenia (04/29/16) Surgical History Status post cardiac catheterization (~2020) History of colon resection Hx of shoulder surgery (Unknown) History of left hip replacement (Unknown) History of bilateral knee replacement (Unknown) Family History Mother Cancer Medical history unknown Father Medical history unknown Social History marital status: unknown household members: none occupational status: previously employed Smoking Status: Former smoker second hand exposure: No alcohol intake: never substance use type: does not use Assessment & Plan Assessment & Plan narrative: 1. Sacral decubitus ulcer, possible infection, unstageable. Active. - continue cefazolin which will also cover urinary infection. MRSA screen negative. 2. Acute cystitis due to pansensitive E. coli related to chronic urinary obstruction. Improving. -continue cefazolin primarily for above indication. 3. Possible mild acute on chronic diastolic heart failure, improved. 4. HTN, stable. - continue home medications without change, mildly hypertensive on presentation. 5. paroxysmal atrial fibrillation, stable. -currently rate controlled 6. supratherapeutic INR, improved. -initially 4.9 on 04/12/2024, down to 1.4 after 10 mg PO vitamin K, no evidence of bleeding -monitor daily INR. -restart warfarin postoperatively per pharmacy protocol7. BPH with chronic urinary obstruction, stable. -continue tamsulosin 8. HLD, stable. -continue statin PLAN: -Wound vac + wound care. -follow cx -Abx plan: We will continue wound VAC at senior living facility and cephalosporin for an additional 7 days. BOB: Possible discharge to senior living facility later today. Code status is full code. DVT prophylaxis with warfarin. Proxy is sister Deyanira. Time-Based Coding :: [TOTAL MINUTES] spent with patient and on the chart (including review of chart, obtaining history, exam, reviewing outside data, placing orders, documenting exam and treatment plan, and counseling patient) on [DATE]. Quality VTE Deep Vein Thrombosis/Pulmonary Embolism Present on Admission: No
--- NOTE | 2024-04-19 08:06 | PM.PNPO.1 ---
Subjective Subjective Date Patient Seen: 04/19/24 Time Patient Seen: 08:06 Exam Vital Signs (past 8 hours): - 04/19/24 01:00 04/19/24 02:00 04/19/24 04:00 Temperature 97.6 F 97.8 F Pulse Rate 53 L 53 L Respiratory Rate 20 20 Blood Pressure 110/46 L 121/41 L Pulse Oximetry 96 96 96 Oxygen Delivery Method Room Air Oxygen Flow Rate 0 0 0 04/19/24 05:00 Temperature Pulse Rate Respiratory Rate Blood Pressure Pulse Oximetry 96 Oxygen Delivery Method Room Air Oxygen Flow Rate 0 Oxygen Delivery Method Room Air Oxygen Flow Rate 0 Objective Labs 04/19/24 05:53 04/19/24 05:53 Labs: Laboratory Results - last 24 hr 04/19/24 05:53 WBC 13.8 H RBC 3.22 L Hgb 9.1 L Hct 27.6 L MCV 85.5 MCH 28.3 MCHC 33.1 RDW 15.9 H Plt Count 317 Neut % (Auto) 92.6 H Lymph % (Auto) 4.7 L [place] % (Auto) 2.6 L Eos % (Auto) 0.0 L Baso % (Auto) 0.1 Neut # (Auto) 88024 H Lymph # (Auto) 700 L [place] # (Auto) 400 Eos # (Auto) 0 Baso # (Auto) 0 PT 16.5 H INR 1.4 H Sodium 134 L Potassium 4.7 Chloride 106 Carbon Dioxide 27 BUN 28 H Creatinine 0.89 Estimated GFR > 60 BUN/Creatinine Ratio 31.5 H Glucose 130 H Calcium 8.8 PFSH Medical History Mixed hyperlipidemia Essential hypertension Systolic CHF, chronic Thrombophilia History of UTI Typical atrial flutter Paroxysmal atrial fibrillation 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) Aortic regurgitation BPH (benign prostatic hyperplasia) Cyst of left kidney Neoplasm of uncertain behavior of bladder Elevated PSA Iron deficiency anemia due to dietary causes Neurogenic bladder (Unknown) Neuropathy (Unknown) Encephalopathy (Unknown) Gastric ulcer (Unknown) Osteoarthritis (Unknown) Osteopenia (04/29/16) Surgical History Status post cardiac catheterization (~2020) History of colon resection Hx of shoulder surgery (Unknown) History of left hip replacement (Unknown) History of bilateral knee replacement (Unknown) Family History Mother Cancer Medical history unknown Father Medical history unknown Social History marital status: unknown household members: none occupational status: previously employed Smoking Status: Former smoker second hand exposure: No alcohol intake: never substance use type: does not use Assessment & Plan Post-op Assessment and plan (1) Sacral decubitus ulcer: Assessment and Plan narrative: POD#1 debridement and lavage and wound vac placement for the stage IV, 10 x 10 cm presacral decubitus ulcer, doing very well, restarted Coumadin yesterday, pharmacy will take over, recommend CONTINUING the wound vac x 6-8 weeks. Postoperative Procedures: Procedures Operation Date: 04/14/24 15:30 Actual Procedure Side Surgeon p Incision and Drainage Debride Sacral Decubitus Isael Buckley MD Operation Date: 04/18/24 12:15 Actual Procedure Side Surgeon p Incision and Drainage of sacral wound with wound vac replacement Kareen Sales MD Postoperative status narrative: POD#1 debridement and lavage and wound vac placement for the stage IV, 10 x 10 cm presacral decubitus ulcer, doing very well, restarted Coumadin yesterday, pharmacy will take over, recommend CONTINUING the wound vac x 6-8 weeks. Quality VTE Deep Vein Thrombosis/Pulmonary Embolism Present on Admission: No
[2024-04-19] MEDS: ASCORBIC ACID 500 MG TABLET 1000 MG PO (09:25)
[2024-04-19] MEDS: AMLODIPINE 5 MG TABLET 2.5 MG PO ×2 (09:25→21:19)
[2024-04-19] MEDS: AMIODARONE 200 MG TABLET PO (09:25)
[2024-04-19] MEDS: TAMSULOSIN 0.4 MG CAPSULE PO (09:25)
[2024-04-19] MEDS: SENNOSIDES 8.6 MG TABLET 34.4 MG PO (09:25)
[2024-04-19] MEDS: LOSARTAN 50 MG TABLET PO ×2 (09:26→21:25)
[2024-04-19] MEDS: carvediloL 12.5 MG TABLET 25 MG PO ×2 (09:26→21:26)
[2024-04-19] MEDS: CHOLECALCIFEROL (VITAMIN D3) 1,000 UNIT TABLET 4000 UNIT PO (09:26)
[2024-04-19] MEDS: FUROSEMIDE 20 MG TABLET PO (09:26)
[2024-04-19] MEDS: ENOXAPARIN 40 MG/0.4 ML SYRINGE SUBCUT (09:26)
[2024-04-19] MEDS: SODIUM CHLORIDE 0.9% FLUSH 10 ML IV ×2 (09:28→21:31)
--- NOTE | 2024-04-19 10:30 | PT.IPTN ---
Current Diagnoses Cellulitis, unspecified (04/11/24) Pressure ulcer of sacral region, unspecified stage (04/11/24) Personal history of urinary (tract) infections (04/11/24) Surgery Performed Operation Date: 04/14/24 15:30 Actual Procedures p Incision and Drainage Debride Sacral Decubitus - Isael Buckley MD Operation Date: 04/18/24 12:15 Actual Procedures p Incision and Drainage of sacral wound with wound vac replacement - Kareen Sales MD Physical Therapy Treatment Note M2 PT-IP Current Condition Start: 04/12/24 07:47 Freq: NEEDED Status: Active Protocol: Document 04/15/24 14:40 AB (Rec: 04/15/24 16:55 AB [id number]) Physical Therapy Current Condition Current Condition Evaluation Date 04/15/24 Treatment Diagnosis sacral decubitus ulcer excision; difficulty in walking Onset Date 04/11/24 M3 PT-IP Subjective Start: 04/12/24 07:47 Freq: NEEDED Status: Active Protocol: Document 04/19/24 10:56 TS (Rec: 04/19/24 11:04 TS [id number]) Subjective Physical Therapy Visit Type Type Treatment Note Visit Start Time 10:30 Visit Stop Time 10:55 Number of MECHANICAL MAINTENANCE TECHNICIAN Visits 1 Physical Therapy Visit Comments Patient Comments Pt found resting in bed, is agreeable to PT. Therapy Pain Assessment Pain When Pain Assessed At Rest Pain Present Pain Present Pain Reported M4 PT-IP Mobility and Gait Start: 04/12/24 07:47 Freq: NEEDED Status: Active Protocol: Document 04/19/24 10:56 TS (Rec: 04/19/24 11:04 TS [id number]) PT-Bed Mobility Assessment Supine to Sit Supine to Sit Minimal Assistance,1 Person Assistance Sit to Supine Sit to Supine Moderate Assistance,1 Person Assistance,Bedrails Scooting Scooting to Edge of Bed Contact Guard Assistance PT-Transfer Assessment Sit to and From Stand Sit to and from Stand Minimal Assistance,1 Person Assistance Equipment Transfer Assistive Device Gait Belt,Front Wheeled Walker Orthotic/Prosthetic Devices or Brace: No Comments Mobility Comments Supine to sit Felicia for uprighting trunk, pt requires cues for coming up on elbows/ hands. He scoots to EOB with slwo movement due to pain. STS with FWW x2 Felicia with FWW. He ambualtes 2x10'ModA, pt has soft knees, requires cues for knee ext. Sit to supine into bed ModA for LE's. Pt was left in bed, requesting nrusing staff. Gait Assessment Gait Gait Assistance Required: Moderate Assistance,1 Person Assist Distance (Feet) 20 Assistive Devices Assistive Device Front Wheeled Walker Orthotic/Prosthetic Devices or Brace: No PT-Balance Assessment Sitting Balance and Reactions Static Sitting Balance Ability Good Dynamic Sitting Balance Ability Good Standing Balance and Reactions Static Standing Balance Ability Fair Dynamic Standing Balance Ability Poor Device Used FWW M5 PT-IP Objective Assessments Start: 04/12/24 07:47 Freq: NEEDED Status: Active Protocol: Document 04/15/24 14:40 AB (Rec: 04/15/24 16:55 AB [id number]) Orientation Orientation/Cognition Level of Alertness Alert Orientation Name,Place,Situation Language Function Ability Hard of Hearing Safety Awareness Decreased Safety Awareness Memory Description Short Term Impaired Gross Range of Motion Lower Extremity ROM Assessment Within Functional Limits Strength Lower Extremity Strength Assessment Bilaterally Impaired Hip 3+/5 Knee 3+/5 Comments Strength Comments LLE slightly stronger than LLE Muscle Tone Muscle Tone WNL Yes M6 PT-IP Treatment Start: 04/12/24 07:47 Freq: NEEDED Status: Active Protocol: Document 04/19/24 10:56 TS (Rec: 04/19/24 11:04 TS [id number]) Physical Therapy Treatment Education Education Provided Safety M7 PT-IP Assessment and Plan Start: 04/12/24 07:47 Freq: NEEDED Status: Active Protocol: Document 04/19/24 10:56 TS (Rec: 04/19/24 11:04 TS [id number]) PT Summary Assessment and Plan Potential Rehabilitation Potential Fair Summary Impairments Pain,ROM,Strength,Balance, Coordination,Sensation,Tone, Cognition,Bed Mobility, Transfers,Gait,Activity Tolerance Progress Towards Goals Slow Progress due to Pain,Slow Progress due to Activity Tolerance Assessment Summary Josh is making some progress with his mobility but he continues to have limited tolerance and weakness. He required decreased assist for bed mobility and STS with FWW. He progressed his gait to ~20 'ModA with FWW this session. He continues to have BLE weakness and some knee buckling. PT continues to recommend SNF. Goals Bed Mobility Goal Minimal Assistance Transfer Goal Minimal Assistance,Front Wheeled Walker Gait Goal Minimal Assistance,Front Wheel Walker Gait Distance 25 Other Goals improve bed mobility, transfers and ambulation usign LRAD ~ 100 ft SBA Days to Meet Goals 10 Frequency of Treatment Frequency Of Treatment Once a Day Treatment Plan Physical Therapy Treatment Plan Bed Mobility Training,Transfer Training,Gait Training, Therapeutic Exercise,Balance Retraining,Post Op Education, Discharge Planning,Hot or Cold Pack,Neuromuscular Re-ed, Coordination Retraining,Manual Therapy Recommendations To Nursing Amount of Assist Needed 1 Person Assist Discharge Recommendations PT Discharge Recommendations SNF Rehab Transportation Needs at Discharge Wheelchair/Cabulance
--- NOTE | 2024-04-19 12:55 | CM.DPC ---
DCP Cont. Reviewed EMR and team rounds for status updates. Called and emailed Heidi at [facility], provided her the info she was needing to determine time/date for acceptance. Due to it now being late in the day, this [facility] is anticipating d/c to their facility on Thu. Will monitor closely. Hospitalist updated.
--- NOTE | 2024-04-19 14:11 | OT.IP.TRT ---
Current Diagnoses Cellulitis, unspecified (04/11/24) Pressure ulcer of sacral region, unspecified stage (04/11/24) Personal history of urinary (tract) infections (04/11/24) Surgery Performed Operation Date: 04/14/24 15:30 Actual Procedures p Incision and Drainage Debride Sacral Decubitus - Isael Buckley MD Operation Date: 04/18/24 12:15 Actual Procedures p Incision and Drainage of sacral wound with wound vac replacement - Kareen Sales MD Occupational Therapy Treatment Note M2 OT-IP Current Condition Start: 04/18/24 16:21 Freq: Status: Active Protocol: Document 04/18/24 16:21 CGR (Rec: 04/18/24 16:34 CGR [id number]) Occupational Therapy Current Condition Current Condition Evaluation Date 04/18/24 Treatment Diagnosis sacral decubitus ulcer with wound vac Diagnosis Onset Date 04/11 M3 OT- IP Subjective and Pain Start: 04/18/24 16:21 Freq: Status: Active Protocol: Document 04/19/24 14:20 CCC (Rec: 04/19/24 14:24 CCC [id number]) OT- Subjective Occupational Therapy Visit Type Type Treatment Note Visit Start Time 14:11 Visit Stop Time 14:19 Occupational Therapy Visit Comments Patient Comments Pt states not wanting to get up at this time and agreed to talk to OT regarding equipment needs and information on energy conservation. Patient/Caregiver Goals TO go to skilled rehab. OT Pain Assessment Pain When Pain Assessed At Rest Pain Present Pain Present Denied Pain M4 OT- IP ADL's Start: 04/18/24 16:21 Freq: Status: Active Protocol: Document 04/18/24 16:21 CGR (Rec: 04/18/24 16:34 CGR [id number]) OT [id number] Comments OT Self-Feeding Comments not meal time OT ADL-Grooming Comments OT Grooming Comments pt declined, states he already performed this AM OT ADL-Oral Care Comments Oral Care Comments pt declined, states he already performed this AM OT ADL-Dressing General Eval Lower Body Dressing Ability Total Assistance Areas Needing Assistance Socks OT ADL-Toileting Comments OT Toileting Comments not performed OT ADL-Bathing Comments OT Bathing Comments not performed M5 OT- IP IADL's Start: 04/18/24 16:21 Freq: Status: Active Protocol: Document 04/18/24 16:21 CGR (Rec: 04/18/24 16:34 CGR [id number]) OT-Instrumental Activities of Daily Living Deficits IADL Deficits Identified No Deficits Home Safety Awareness Awareness of Need for Assistance at Home Good Awareness Ability to Problem Solve Emergency Able to Problem Solve Situations Medication Management Medication Management No Deficits Identified Money Management Money Management No Deficits Identified Meal Preparation Meal Preparation No Deficits Identified Retail Solar Advisor Retail Solar Advisor No Deficits Identified Driving Driving Comments Pt does not drive at baseline M6 OT- IP Functional Cognition Start: 04/18/24 16:21 Freq: Status: Active Protocol: Document 04/19/24 14:20 [facility] (Rec: 04/19/24 14:24 [facility] [id number]) Cognitive Factors Limiting Selfcare Function Cognitive Comments Cognitive Assessment Comments Pt able to talk and recall equipment needs to get for home use after rehab- tub bench, BSC, hand held shower spray. Pt states, I am already working on it.Pt able to read over energy conservation strategies and states do follow them at home. M7 OT- IP Mobility and Balance Start: 04/18/24 16:21 Freq: Status: Active Protocol: Document 04/18/24 16:21 CGR (Rec: 04/18/24 16:34 CGR [id number]) OT- Bed Mobility Assessment Supine to Sit Supine to Sit Assist Maximum Assistance,1 Person Assistance Sit to Supine Sit to Supine Assist Maximum Assistance,1 Person Assistance OT-Transfer Assessment Sit to and From Stand Sit to and from Stand Moderate Assistance,1 Person Assistance Transfers Transfer Ability Moderate Assistance,1 Person Assistance Technique Transfer Destination Bed Transfer Technique Stand Step Pivot Devices Transfer Assistive Devices Gait Belt,Front Wheeled Walker Comments Mobility Comments Pt stood x 2 with steps towards HOB. OT- Balance Assessment Sitting Balance and Reactions Static Sitting Balance Ability Good Dynamic Sitting Balance Ability Good M8 OT- IP Objective Assessments Start: 04/18/24 16:21 Freq: Status: Active Protocol: Document 04/18/24 16:21 CGR (Rec: 04/18/24 16:34 CGR [id number]) OT Gross Range of Motion Upper Extremity Range of Motion Assessment Within Functional Limits OT Strength Upper Extremity Strength Assessment Within Functional Limits Comments Strength Comments shlds 4/5 arms and hand 4+/5 OT- Coordination Assessment Upper Extremity Finger to Nose Test Within Functional Limits Finger Tapping Test Within Functional Limits OT-Muscle Tone Assessment Muscle Tone WNL Yes OT Sensation Assessment Edema Edema Absent M9 OT- IP Assessment and Plan Start: 04/18/24 16:21 Freq: Status: Active Protocol: Document 04/19/24 14:20 [facility] (Rec: 04/19/24 14:24 [facility] [id number]) OT Summary Assessment and Plan Potential Rehabilitation Potential Good Analytic Complexity at Evaluation Moderate Summary OT Impairments Pain,Strength,Balance, Functional Mobility,Grooming, Dressing,Toileting,Bathing, Toilet Transfers,Shower Transfers,Activity Tolerance Progress Towards Goals Slow Progress due to Pain,Slow Progress due to Medical Issues Assessment Summary Able to go over OT equipment needs for home after rehab and information of energy conservation for ADL and IADL needs. Pt to go to skilled rehab when medically stable. Goals Grooming Goal Independent Dressing Goal Independent Toileting Goal Independent Bathing Goal Independent Shower Transfer Goal Independent Days to Meet Goals 30 Frequency of Treatment Other frequency 5x week Treatment Plan OT Treatment Plan ADL Training,Functional Mobility,Patient/Family Education,Discharge Planning Other Treatment Recommendations and Next endurance training, UE Treatment Focus strengthening, BSc transfer. Discharge Recommendations OT Discharge Recommendations SNF Rehab Transportation Needs at Discharge Wheelchair/Cabulance
[2024-04-19] MEDS: FERROUS SULFATE 325 MG TABLET PO (16:37)
[2024-04-19] MEDS: WARFARIN 1 MG TABLET 2 MG PO (16:37)
[2024-04-19] MEDS: ATORVASTATIN 20 MG TABLET PO (21:25)
[2024-04-19] MEDS: HYDROCODONE/ACET 5/325 TABLET 2 TAB PO (21:26)
[2024-04-20] VITALS (11 sets, daily range): BP systolic 108–138; BP diastolic 35–47; PULSE 54–64; RESP 18–20; TEMP 36.6–36.8; O2SAT 94–95
[2024-04-20] MEDS: CEFAZOLIN VIAL 1 GM in SODIUM CHLORIDE 0.9% 100 ML IV ×3 (04:02→21:10)
[2024-04-20 06:28] LABS: INR 1.5 (0.9-1.3); Prothrombin Time 17.2 SECONDS (9.4-12.5)
[2024-04-20] MEDS: SENNOSIDES 8.6 MG TABLET 34.4 MG PO (09:27)
[2024-04-20] MEDS: TAMSULOSIN 0.4 MG CAPSULE PO (09:27)
[2024-04-20] MEDS: FUROSEMIDE 20 MG TABLET PO (09:28)
[2024-04-20] MEDS: ASCORBIC ACID 500 MG TABLET 1000 MG PO (09:28)
[2024-04-20] MEDS: LOSARTAN 50 MG TABLET PO (09:28)
[2024-04-20] MEDS: carvediloL 12.5 MG TABLET 25 MG PO (09:28)
[2024-04-20] MEDS: AMLODIPINE 5 MG TABLET 2.5 MG PO ×2 (09:29→21:09)
[2024-04-20] MEDS: ENOXAPARIN 40 MG/0.4 ML SYRINGE SUBCUT (09:29)
[2024-04-20] MEDS: AMIODARONE 200 MG TABLET PO (09:29)
[2024-04-20] MEDS: CHOLECALCIFEROL (VITAMIN D3) 1,000 UNIT TABLET 4000 UNIT PO (09:29)
[2024-04-20] MEDS: SODIUM CHLORIDE 0.9% FLUSH 10 ML IV ×2 (09:30→21:11)
--- NOTE | 2024-04-20 09:35 | CM.DPC ---
Addendum entered and electronically signed by CARMINE Painter 04/20/24 14:24: [facility] can accept and will transport pt at 10:00am on 04/21. Original Note: DCP Cont. Reviewed EMR and team rounds for status updates. Returned call to [facility] re: acceptance for rehab placement. They will submit the auth this morning for [facility], faxed updated clinicals for their review. Placement pending auth approval.
--- NOTE | 2024-04-20 11:46 | PT-IP ANOTE ---
Pt refused PT at this time. He is open to seeing therapy later today.
--- NOTE | 2024-04-20 14:04 | OT.IPNOTE ---
Pt refusing OT today and aware to call nursing for assist. Pt upset that he was told that he is no longer going to [facility], case management notified on his request to go to [facility].
--- NOTE | 2024-04-20 14:20 | P.PN_ITS ---
Subjective Subjective Interval history: S: He was doing a little bit better today. Less buttock pain. No chest pain, nausea, or dyspnea. He was little disappointed about having to go to nursing facility in [place] instead of [place]. Exam Vital Signs (past 8 hours): - 04/20/24 08:00 04/20/24 09:00 04/20/24 09:15 Temperature 97.8 F Pulse Rate 54 L Respiratory Rate 18 Blood Pressure 138/47 L Pulse Oximetry 95 95 Oxygen Delivery Method Room Air Room Air Oxygen Flow Rate 0 04/20/24 09:28 04/20/24 09:28 Temperature Pulse Rate 54 L 54 L Respiratory Rate Blood Pressure 138/47 L 138/47 L Pulse Oximetry Oxygen Delivery Method Oxygen Flow Rate Oxygen Delivery Method Room Air Oxygen Flow Rate 0 Narrative Exam Narrative: NAD, alert and oriented. Fluent speech. He looks better today, better color and more vibrant. Lungs are clear, normal rate and effort. Heart is regular, no murmur gallop or rub. Abdomen is soft, non distended. Extremities are free of edema. 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) Aortic regurgitation BPH (benign prostatic hyperplasia) Cyst of left kidney Neoplasm of uncertain behavior of bladder Elevated PSA Iron deficiency anemia due to dietary causes Neurogenic bladder (Unknown) Neuropathy (Unknown) Encephalopathy (Unknown) Gastric ulcer (Unknown) Osteoarthritis (Unknown) Osteopenia (04/29/16) Surgical History Status post cardiac catheterization (~2020) History of colon resection Hx of shoulder surgery (Unknown) History of left hip replacement (Unknown) History of bilateral knee replacement (Unknown) Family History Mother Cancer Medical history unknown Father Medical history unknown Social History marital status: unknown household members: none occupational status: previously employed Smoking Status: Former smoker second hand exposure: No alcohol intake: never substance use type: does not use Assessment & Plan Assessment & Plan narrative: 1. Sacral decubitus ulcer, possible infection, unstageable. Active. - continue cefazolin which will also cover urinary infection. MRSA screen negative. 2. Acute cystitis due to pansensitive E. coli related to chronic urinary obstruction. Improving. -continue cefazolin primarily for above indication. 3. Possible mild acute on chronic diastolic heart failure, improved. 4. HTN, stable. - continue home medications without change, mildly hypertensive on presentation. 5. paroxysmal atrial fibrillation, stable. -currently rate controlled 6. supratherapeutic INR, improved. -initially 4.9 on 04/12/2024, down to 1.4 after 10 mg PO vitamin K, no evidence of bleeding -restarted warfarin postoperatively per pharmacy protocol 7. BPH with chronic urinary obstruction, stable. -continue tamsulosin 8. HLD, stable. -continue statin PLAN: -continue wound VAC and wound care. -anticipate conversion to oral antibiotics for an additional week when he goes to usp facility tomorrow. -[facility] usp Facility, discharge will be April 21 when they have bed availability. BOB: 04/21. SNF DVT: Warfarin restarted. Time-Based Coding :: [TOTAL MINUTES] spent with patient and on the chart (including review of chart, obtaining history, exam, reviewing outside data, placing orders, documenting exam and treatment plan, and counseling patient) on [DATE]. Quality VTE Deep Vein Thrombosis/Pulmonary Embolism Present on Admission: No
--- NOTE | 2024-04-20 16:55 | PT.IPTN ---
Current Diagnoses Cellulitis, unspecified (04/11/24) Pressure ulcer of sacral region, unspecified stage (04/11/24) Personal history of urinary (tract) infections (04/11/24) Surgery Performed Operation Date: 04/14/24 15:30 Actual Procedures p Incision and Drainage Debride Sacral Decubitus - Isael Buckley MD Operation Date: 04/18/24 12:15 Actual Procedures p Incision and Drainage of sacral wound with wound vac replacement - Kareen Sales MD Physical Therapy Treatment Note M2 PT-IP Current Condition Start: 04/12/24 07:47 Freq: NEEDED Status: Active Protocol: Document 04/15/24 14:40 AB (Rec: 04/15/24 16:55 AB [id number]) Physical Therapy Current Condition Current Condition Evaluation Date 04/15/24 Treatment Diagnosis sacral decubitus ulcer excision; difficulty in walking Onset Date 04/11/24 M3 PT-IP Subjective Start: 04/12/24 07:47 Freq: NEEDED Status: Active Protocol: Document 04/20/24 16:55 AB (Rec: 04/20/24 18:00 AB [id number]) Subjective Physical Therapy Visit Type Type Treatment Note Visit Start Time 16:55 Visit Stop Time 17:15 Notes pt initially refusing. agreed for pt to come back again. pt agreed to do PT on 2nd attempt. Number of FOREIGN STUDENT ADVISER Visits 0 M4 PT-IP Mobility and Gait Start: 04/12/24 07:47 Freq: NEEDED Status: Active Protocol: Document 04/20/24 16:55 AB (Rec: 04/20/24 18:00 AB [id number]) PT-Bed Mobility Assessment Supine to Sit Supine to Sit Contact Guard Assistance,Head of Bed Elevated,Bedrails Sit to Supine Sit to Supine Maximum Assistance,1 Person Assistance,Head of Bed Elevated,Bedrails PT-Transfer Assessment Sit to and From Stand Sit to and from Stand Moderate Assistance,Maximum Assistance,1 Person Assistance ,Use of Upper Extremities Equipment Transfer Assistive Device Gait Belt,Front Wheeled Walker Orthotic/Prosthetic Devices or Brace: No Comments Mobility Comments pt supine in bed agreed to do PT on 2nd attempt. completed supine to sit CGA and cues. pt needing increase time to complete task. pt able to sit on EOB SBA. completed sit to stand mot to max A and max cues. Max A for standing balance using fWW. pt refused to do ambulation but agreed to take side steps to position in bed. completed ~ 3 ft of side stepping using FWW max A and cues. pt sat down on EOB. agreed to stand again and completed max A and able to take 2 more steps towards HOB using FWW max A and max cues. assisted pt back to bed : sit to supine max A for LE elevation to bed. positioned pt in bed. call light and table placed within reach. Gait Assessment Gait Gait Assistance Required: Maximum Assistance,1 Person Assist Distance (Feet) 3 Able to Maintain Weight Bearing Status Yes During Gait Assistive Devices Assistive Device Gait Belt,Front Wheeled Walker Orthotic/Prosthetic Devices or Brace: No Gait Deviations General Gait Pattern Antalgic,Decreased Stride Length,Decreased Feet Clearance Factors Limiting Gait Function Factors Limiting Gait Function Decreased Activity Tolerance, Limited Range of Motion,Pain, Poor Balance,Poor Safety Awareness PT-Balance Assessment Sitting Balance and Reactions Static Sitting Balance Ability Good Dynamic Sitting Balance Ability Fair Standing Balance and Reactions Static Standing Balance Ability Poor Dynamic Standing Balance Ability Poor Device Used FWW M5 PT-IP Objective Assessments Start: 04/12/24 07:47 Freq: NEEDED Status: Active Protocol: Document 04/15/24 14:40 AB (Rec: 04/15/24 16:55 AB [id number]) Orientation Orientation/Cognition Level of Alertness Alert Orientation Name,Place,Situation Language Function Ability Hard of Hearing Safety Awareness Decreased Safety Awareness Memory Description Short Term Impaired Gross Range of Motion Lower Extremity ROM Assessment Within Functional Limits Strength Lower Extremity Strength Assessment Bilaterally Impaired Hip 3+/5 Knee 3+/5 Comments Strength Comments LLE slightly stronger than LLE Muscle Tone Muscle Tone WNL Yes M6 PT-IP Treatment Start: 04/12/24 07:47 Freq: NEEDED Status: Active Protocol: Document 04/20/24 16:55 AB (Rec: 04/20/24 18:00 AB [id number]) Physical Therapy Treatment Education Education Provided Safety M7 PT-IP Assessment and Plan Start: 04/12/24 07:47 Freq: NEEDED Status: Active Protocol: Document 04/20/24 16:55 AB (Rec: 04/20/24 18:00 AB [id number]) PT Summary Assessment and Plan Potential Rehabilitation Potential Fair Summary Impairments Pain,ROM,Strength,Balance, Coordination,Sensation,Tone, Cognition,Bed Mobility, Transfers,Gait,Activity Tolerance Progress Towards Goals Slow Progress due to Medical Issues,Slow Progress due to Activity Tolerance Assessment Summary pt requiring max A with mobility using FWW and with decrease activity tolerance affecting mobility independence. pt will require SNF rehab to improve overall strength and function. Goals Bed Mobility Goal Minimal Assistance Transfer Goal Minimal Assistance,Front Wheeled Walker Gait Goal Minimal Assistance,Front Wheel Walker Gait Distance 25 Other Goals improve bed mobility, transfers and ambulation usign LRAD ~ 100 ft SBA Days to Meet Goals 10 Frequency of Treatment Frequency Of Treatment Once a Day Treatment Plan Physical Therapy Treatment Plan Bed Mobility Training,Transfer Training,Gait Training, Therapeutic Exercise,Balance Retraining,Post Op Education, Discharge Planning,Hot or Cold Pack,Neuromuscular Re-ed, Coordination Retraining,Manual Therapy Precautions Other Precautions wound vac Recommendations To Nursing Amount of Assist Needed 2 Person Assist Discharge Recommendations PT Discharge Recommendations SNF Rehab Transportation Needs at Discharge Wheelchair/Cabulance
[2024-04-20] MEDS: FERROUS SULFATE 325 MG TABLET PO (17:38)
[2024-04-20] MEDS: OXYCODONE IR 5 MG TABLET PO (17:38)
[2024-04-20] MEDS: WARFARIN 1 MG TABLET 2 MG PO (17:38)
[2024-04-20] MEDS: ATORVASTATIN 20 MG TABLET PO (21:09)
[2024-04-21 01:00] VITALS: O2SAT 95
[2024-04-21] MEDS: HYDROCODONE/ACET 5/325 TABLET 2 TAB PO ×2 (02:54→10:59)
[2024-04-21 05:00] VITALS: O2SAT 95
[2024-04-21] MEDS: CEFAZOLIN VIAL 1 GM in SODIUM CHLORIDE 0.9% 100 ML IV (05:54)
[2024-04-21 06:16] LABS: Hematocrit 27.8 % (41-53); Mean Corpuscular HGB Conc 32.2 % (30-36); Mean Corpuscular Hemoglobin 27.7 PG (26-34); Mean Corpuscular Volume 86.1 fL (80-100); Platelet Count 392 X10^3/uL (150-400); Red Blood Cell Count 3.23 X10^6/uL (4.5-5.9); Red Cell Distribution Width 16.3 % (11.6-14.8); White Blood Cell Count 12.4 X10^3/uL (4.5-11.0)
[2024-04-21 06:24] LABS: INR 1.4 (0.9-1.3); Prothrombin Time 16.2 SECONDS (9.4-12.5)
[2024-04-21 06:31] LABS: Blood Urea Nitrogen 47 mg/dL (9-20); Calcium 8.8 mg/dL (8.4-10.2); Carbon Dioxide 27 mmol/L (22-32); Chloride 104 mmol/L (98-107); Estimated Glomerular Filt Rate > 60 mL/min (>60); Glucose 91 mg/dL (80-110); HEMOLYSIS < 15 (0-50); Potassium 4.8 mmol/L (3.4-5.1); Sodium 133 mmol/L (137-145)
--- NOTE | 2024-04-21 07:53 | CM.DPC ---
DCP Cont. Reviewed EMR. Pt has been medically cleared for SNF rehab d/c today. [facility]- will be transporting him at 10:00am, will fax d/c clinicals and scripts once available. No further d/c assistance needs indicated at this time.
[2024-04-21 08:00] VITALS: BP 122/45; PULSE 58; RESP 16; TEMP 36.7; O2SAT 96
--- NOTE | 2024-04-21 08:14 | PM.DS.1 ---
History of Present Illness History of Present Illness Chief complaint: fall, L hip injury Narrative: From H&P: 73 M PMH of paroxysmal atrial fibrillation on warfarin, dilated cardiomyopathy, mod-severe AR, hypertension, hyperlipidemia, neurogenic bladder with daily self-cath, BPH, and AAA who presented with left hip pain after a fall on thursday. He was sitting on the side of his tub and fell on to his buttocks. He has had continued pain, difficulty ambulating. He came in today with continued pain and drainage noted from the area. He denies recent shortness of breath, fever, abdominal pain, nausea, vomiting, or diarrhea. He further denies cough, focal weakness or numbness, no facial droop, and no numbness. He denies any lesions or skin issues prior to his fall. CT scan performed showed large decubitus sacral ulcer, possible osteomyelitis. MR did not show any evidence of osteomyelitis. There is no abscess notable. He was given a dose of ceftriaxone in the ER. Discharge Providers Provider Date of admission: 04/11/24 12:40 Discharge Date: 04/21/24 Primary care physician: Rafa Dash DO Consults: 04/11/24 10:42 Consult to [facility] - Robotic Maintenance Technician Stat Comment: Robotic Maintenance Technician Consult needed for:: Unable to care for self 04/11/24 17:34 Consult to Occupational Therapy Evaluate & Treat Comment: Physician Instructions: Evaluate and treat Consult to Physical Therapy Evaluate & Treat Comment: Physician Instructions: Evaluate and Treat 04/11/24 23:34 Consult to Inpatient Wound Care Nurse Routine Comment: Reason for consultation: unstable wound to his bottom Has provider been notified: Yes 04/15/24 10:46 Consult to Occupational Therapy Evaluate & Treat Comment: Physician Instructions: Evaluate and treat Consult to Physical Therapy Evaluate & Treat Comment: Physician Instructions: Evaluate and Treat 04/15/24 18:23 Consult to Dietitian, Adult Urgent Comment: Reason For Exam: promote wound healing per protocol Consult to Wound Care Routine Comment: Consulting Provider: [facility] 04/18/24 13:58 Consult to Discharge Planning Routine Comment: Discharge provider: Daniel Leonardo MD Summary Hospital Course Discharge Diagnosis: 1. Sacral decubitus ulcer, possible infection, unstageable. Active. - MRSA screen negative. 2. Acute cystitis due to pansensitive E. coli related to chronic urinary obstruction. Resolved. 3. Possible mild acute on chronic diastolic heart failure, improved. 4. HTN, stable. 5. Paroxysmal atrial fibrillation, stable. 6. supratherapeutic INR, improved. 7. BPH with chronic urinary obstruction, stable. 8. HLD, stable. Hospital Course: The patient presented with left hip pain after a recent fall. He was a past history of atrial fibrillation, cardiomyopathy, atrial regurgitation, hypertension, as well as a neurogenic bladder. He also has a known AAA. Upon presentation imaging indicated a large decubitus ulcer. MRI was obtained which did not indicate active bony infection. The patient underwent debridement on April 14 and a wound VAC was applied. The patient was on empiric antibiotics from the time of his admission. Cultures did grow E coli in his urine, however wound cultures remained negative. The patient underwent a 2nd debridement on April 18. This was for a stage IV infected decubitus ulcer. The area of debridement was 10 cm x 10 cm x 3 cm. The wound VAC was replaced. The patient was encouraged to increase protein in diet while in the hospital and arrangements were made for fdc facility with ongoing wound care including a wound VAC. IV antibiotics were continued while in the hospital and then he will be placed on 1 week of p.o. antibiotics. It was not clear that there is any evidence of osteomyelitis at this point. We will have to continue to follow and assess clinically. [facility]. He was over anticoagulated upon presentation, warfarin was held and then re-dose by pharmacy. He will discharge on 2 mg a day. Status at Discharge Cognitive/behavioral status at discharge: oriented Functional status at discharge: uses cane/walker Overall status at discharge: patient is progressing back to baseline Time Spent with Patient Time spent: Greater than 30 minutes Exam Vital Signs (past 8 hours): - 04/21/24 01:00 04/21/24 05:00 Pulse Oximetry 95 95 Oxygen Delivery Method Room Air Room Air Oxygen Delivery Method Room Air Oxygen Flow Rate 0 Narrative Exam Narrative: NAD, alert and oriented. Fluent speech. Lungs are clear, normal rate and effort. Heart is regular, no murmur gallop or rub. Abdomen is soft, non distended. Extremities are free of edema. Sacral wound VAC is in place. Objective Imaging Multiple studies:: Radiologist's impression: Echo: 1) Severely enlarged left ventricle with low normal systolic function (EF 50- 55%). 2) Normal right ventricular size and function. 3) The left atrium is severely dilated. 4) There is moderate-severe aortic regurgitation directed towards to anterior mitral leaflet. No obvious flow reversal in the abdominal aorta. 5) The aortic root is severely dilated at 4.8cm. 6) There is a small left-sided pleural effusion. 7) Compared to the Echo done 04/20/2023, no significant change. Pelvis MRI: 1. Skin ulceration and subcutaneous gas overlying the lower sacrum and coccyx again seen as demonstrated on the CT from earlier the same day. No definite MR evidence of osteomyelitis. 2. Mild edema within the inferior medial gluteus kate muscles, greater on the right than on the left, suspicious for reactive edema or myositis. Mild diffuse subcutaneous edema is nonspecific. 3. Postsurgical changes from left hip arthroplasty with associated metal artifact that obscures surrounding structures. Head CT: High-density material can be seen within the paranasal sinuses, which is attributed to blood. On these images, no displaced facial bone fracture can be seen. - If there is strong clinical concern for a facial bone fracture that is not seen on these images, please consider a dedicated maxillofacial CT for further evaluation. No acute intracranial hemorrhage is seen. No acute intracranial process is seen. Abdomen pelvis CT: 1. Large soft tissue skin defect overlying the sacrum compatible with known sacral decubitus ulcer. No definite bony sclerotic or lytic changes involving the sacrum underlying the soft tissue ulcer, however, osteomyelitis cannot be fully excluded from the study. 2. Small right-sided pleural effusion and trace left pleural fluid seen in conjunction with cardiomegaly and possibly related to congestive heart failure. 3. No acute abnormality within the abdomen or pelvis. 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) Aortic regurgitation BPH (benign prostatic hyperplasia) Cyst of left kidney Neoplasm of uncertain behavior of bladder Elevated PSA Iron deficiency anemia due to dietary causes Neurogenic bladder (Unknown) Neuropathy (Unknown) Encephalopathy (Unknown) Gastric ulcer (Unknown) Osteoarthritis (Unknown) Osteopenia (04/29/16) Surgical History Status post cardiac catheterization (~2020) History of colon resection Hx of shoulder surgery (Unknown) History of left hip replacement (Unknown) History of bilateral knee replacement (Unknown) Family History Mother Cancer Medical history unknown Father Medical history unknown Social History marital status: unknown household members: none occupational status: previously employed Smoking Status: Former smoker second hand exposure: No alcohol intake: never substance use type: does not use Discharge Assessment & Plan Assessment and Plan Assessment: 1. Sacral decubitus ulcer,Stage 4. Active. 2. Acute cystitis due to pansensitive E. coli related to chronic urinary obstruction. Resolved. Plan of Treatment: Discharge to fdc facility, we will continue wound VAC there and follow up [facility]. We will continue doxycycline 100 b.i.d. for an additional 7 days and then stop unless there is clinical evidence of ongoing sacral infection. Discharge Plan Discharge Plan Transfer to: [facility] Under care of provider: Dr. Cabral Discharge orders & Medications Discharge Orders: Discharge (Order); Ordered 04/21/24 Ordered By: Daniel Leonardo Prescriptions: New hydrocodone-acetaminophen 5-325 mg Tablet 2 tab PO Q4H PRN (Reason: Pain, Moderate/Severe (4-10)) Qty: 15 0RF warfarin [Jantoven] 1 mg Tablet 2 mg PO DAILY@1700 Qty: 30 0RF doxycycline hyclate 100 mg capsule 100 mg PO BID Qty: 14 0RF Continued cholecalciferol (vitamin D3) [Vitamin D3] 2,000 unit capsule 4,000 unit PO DAILY Qty: 0 atorvastatin [Lipitor] 20 mg tablet 20 mg PO BEDTIME Qty: 90 3RF amlodipine 2.5 mg tablet 2.5 mg PO BID Qty: 180 0RF furosemide [Lasix] 20 mg tablet 20 mg PO DAILY Qty: 30 3RF tamsulosin [Flomax] 0.4 mg capsule 0.4 mg PO DAILY Qty: 30 0RF Rx Instructions: needs to be seen ferrous sulfate 325 mg (65 mg iron) tablet 325 mg PO MOTUWETHFR Patient Comments: weekdays losartan 50 mg tablet 50 mg PO BID Hold Instructions: hypotension carvedilol 25 mg tablet 25 mg PO BID acetaminophen 500 mg capsule 1,000 mg PO Q6H PRN (Reason: pain) ascorbate calcium (vitamin C) 500 mg Capsule 1,000 mg PO DAILY amiodarone 200 mg tablet 200 mg PO DAILY methenamine hippurate 1 gram tablet 1 g PO BID Discontinued warfarin 3 mg tablet 2 mg PO BEDTIME Rx Instructions: TAKE 1.5MG THURSDAY AND THURSDAY. TAKE 3MG ALL OTHER DAYS, OR DIRECTED AT BEDTIME. (pt states takes 2mg daily) Medication counseling provided by Pharmacist: No Follow up/Referrals: Rafa Dash DO [Primary Care Provider] - Discharge Health Status Multidrug resistant organism: No MDRO Diet/Activity/Treatments Diet: Regular Liquid consistency: Normal/Thin Food texture: Regular Activity: As tolerated Skin/Wound/Dressing Care Report to your healthcare provider any signs of infection, such as:: chills, fever, increased pain, unusual drainage and unusual redness Special Rehabilitation Services Reason for rehabilitation: Post-operative therapy Rehab type: Physical therapy and Occupational therapy Visit Report/Discharge Packet Instructions: DI for Pressure Injuries, DI for Incision and Drainage, [facility]: Wound Care Stand Alone Forms: Patient Portal/API Discharge Data Primary Care Provider: Rafa Dash Quality VTE Deep Vein Thrombosis/Pulmonary Embolism Present on Admission: No
[2024-04-21 09:00] VITALS: O2SAT 98
[2024-04-21] MEDS: CHOLECALCIFEROL (VITAMIN D3) 1,000 UNIT TABLET 4000 UNIT PO (09:12)
[2024-04-21] MEDS: SENNOSIDES 8.6 MG TABLET 34.4 MG PO (09:12)
[2024-04-21] MEDS: FUROSEMIDE 20 MG TABLET PO (09:12)
[2024-04-21] MEDS: TAMSULOSIN 0.4 MG CAPSULE PO (09:13)
[2024-04-21] MEDS: ASCORBIC ACID 500 MG TABLET 1000 MG PO (09:13)
[2024-04-21] MEDS: AMIODARONE 200 MG TABLET PO (09:13)
[2024-04-21] MEDS: AMLODIPINE 5 MG TABLET 2.5 MG PO (09:13)
[2024-04-21] MEDS: ENOXAPARIN 40 MG/0.4 ML SYRINGE SUBCUT (09:14)
== END 2024-04-21 11:19 | DRG 981 ==
LOC: ED 12:40 → AC 12:41
PROVIDERS: Hospitalist; Internal Medicine; Surgery; Admitting Provider Internal Medicine; Emergency Provider Student in an Organized Health Care Education/Training Program; Family Provider Specialist; PCP Family Medicine; Referring Provider Student in an Organized Health Care Education/Training Program; Visit Provider Internal Medicine
PROC: 0QB10ZZ Excision of Sacrum, Open Approach (ICD-10-PCS; CPT 46040; principal; 2024-04-14 15:30)
DX: I96 Gangrene, not elsewhere classified (principal); I50.33 Acute on chronic diastolic (congestive) heart failure; L89.154 Pressure ulcer of sacral region, stage 4; N30.00 Acute cystitis without hematuria; N13.8 Other obstructive and reflux uropathy; I48.0 Paroxysmal atrial fibrillation; N31.9 Neuromuscular dysfunction of bladder, unspecified; R79.1 Abnormal coagulation profile; N40.1 Benign prostatic hyperplasia with lower urinary tract symptoms; E78.5 Hyperlipidemia, unspecified; B96.20 Unspecified Escherichia coli [E. coli] as the cause of diseases classified elsewhere; I11.0 Hypertensive heart disease with heart failure; D50.9 Iron deficiency anemia, unspecified; I71.40 Abdominal aortic aneurysm, without rupture, unspecified; Z79.01 Long term (current) use of anticoagulants; Z87.891 Personal history of nicotine dependence
CPT/HCPCS: 36415; 36430; 51798; 70450; 72197; 74177; 80048; 80053; 81001; 82550; 83605; 83735; 84484; 85014; 85018; 85025; 85027; 85610; 85730; 86850; 86900; 86901; 87040; 87070; 87075; 87077; 87086; 87186; 87205; 87797; 93005; 93306; 96365; 96367; 97116; 97162; 97166; 97530; 97535; 99233; 99285; P9016; A9579; C9290; J0690; J0696; J1100; J1650; J2405; J2704; J3010; J3490; Q9967